=== PATIENT | female | born 1970 | race Caucasian/White ===

== ENCOUNTER → 2019-12-23 10:03 | Outpatient (CLI) | payer BC, SELFPAY ==
[2019-12-23 11:29] LABS: EXAGEN MAILED SPECIMEN
[2019-12-23 12:33] LABS: Erythrocyte Sedimentation Rate 21 mm/hr (0-30)
[2019-12-23 12:35] LABS: ALB/GLOB Ratio 0.7 RATIO (0.9-2.4); AST(SGOT) 42 U/L (15-37); Alanine Aminotransfer ALT/SGPT 44 U/L (13-56); Albumin, Serum 3.1 g/dL (3.2-5.0); Alkaline Phosphatase 63 U/L (45-117); Anion Gap 5 (5-15); BUN 15 mg/dL (7-18); BUN/Creat Ratio 19.8 RATIO (10-20); CRP 8.75 mg/L (0.0-3.0); Calcium,Total 8.2 mg/dL (8.5-10.1); Chloride 102 mmol/L (98-107); Creatinine, Serum 0.76 mg/dL (0.55-1.02); EST Glomerular Filtration Rate 86 mL/min (>60); Est Glom Filt Rate - Afr Amer 104 mL/min (>60); Globulin 4.3 g/dL (2.2-4.2); Glucose 79 mg/dL (74-106); Potassium 3.9 mmol/L (3.5-5.1); Protein, Total 7.4 g/dL (6.4-8.2); Sodium Level 136 mmol/L (136-145)
[2019-12-23 12:36] LABS: Absolute Lymphocyte Count 0.51 X10^3/uL (0.83-4.51); Absolute Neutrophil Count 2.5 X10^3/uL (2.0-7.7); Basophil# 0.02 X10^3/uL; Basophil% 0.6 % (0-1); Eosinophil# 0.01 X10^3/uL; Eosinophils% 0.3 % (0-5); Hematocrit 35.3 % (37-47); Hemoglobin 11.6 g/dL (12.0-15.0); Lymphocyte # 0.51 X10^3/ul (4.0); Lymphocyte % 15.9 % (19-41); Mean Corp Hgb Conc 32.9 g/dL (32-36); Mean Corpuscular Hgb 31.5 pg (27.0-32.0); Mean Corpuscular Volume 95.9 fL (81-99); Mean Platelet Vol. 10.7 fl (6.2-12.0); Monocyte% 6.2 % (0-10); NRBC Flagged by Analyzer 0 % (0-5); Neutrophil # 2.46 X10^3/uL (2.7-7.7); Neutrophil % 76.7 % (47-70); POSITIVE DIFFERENTIAL YES; Platelet Count 141 K/mm3 (150-450); RBC Distribution Width CV 13.1 % (11.6-14.6); RBC Distribution Width SD 45.7 fl (35.1-43.9); Red Blood Count 3.68 M/mm3 (4.2-5.4); White Blood Count 3.2 K/mm3 (4.4-11.0)
[2019-12-23 12:48] LABS: Differential Indicated SCAN CRITERIA MET
[2019-12-23 13:21] LABS: Hepatitis B Surface Antibody Reactive; Hepatitis B Surface Antigen Non-Reactive (Nonreactive); Hepatitis C Antibody Non-Reactive (Nonreactive)
[2019-12-25 14:56] LABS: Hepatitis B Core AB IgM Negative (Negative)
[2019-12-26 13:41] LABS: Pathologist Review Reviewed
== END ==
LOC: LAB 10:19 → MTLAB 10:23
PROVIDERS: PCP Family Medicine; Referring Provider Family Medicine; Visit Provider Family Medicine
DX: M06.4 Inflammatory polyarthropathy (principal); R76.8 Other specified abnormal immunological findings in serum; G56.03 Carpal tunnel syndrome, bilateral upper limbs
CPT/HCPCS: 36415; 80053; 85025; 85652; 86140; 86705; 86706; 86803; 87340

== ENCOUNTER → 2020-01-06 15:01 | Outpatient (CLI) | payer BC, SELFPAY ==
[2020-01-06 18:16] LABS: Protein, Urine (Random) 81.1 mg/dL (<11.9); Protein:Creat Ratio 289 mg/g CRE (0-200)
[2020-01-06 18:36] LABS: Color, Urine Yellow (Yellow); Glucose, Dipstick Normal (Normal); Ketone-Dipstick 5 mg/dl (Negative); Leukocyte Esterase-Dipstick 25 /ul (Negative); Nitrite-Dipstick Negative (Negative); Occult Blood-Urine 150 /ul (Negative); Protein-Dipstick 30 mg/dl (Negative); Urine Bilirubin Dipstick Negative (Negative); Urine Clarity Sl. Cloudy (Clear); Urine Urobilinogen 1 mg/dl (Normal)
== END ==
PROVIDERS: PCP Family Medicine; Referring Provider Internal Medicine Rheumatology; Visit Provider Internal Medicine Rheumatology
DX: M32.9 Systemic lupus erythematosus, unspecified (principal); M06.4 Inflammatory polyarthropathy; Z79.899 Other long term (current) drug therapy; R76.8 Other specified abnormal immunological findings in serum; G56.03 Carpal tunnel syndrome, bilateral upper limbs
CPT/HCPCS: 36415; 81002; 82570; 84156

== ENCOUNTER → 2020-01-24 09:42 | Outpatient (CLI) | payer BC, SELFPAY ==
[2020-01-24 11:57] LABS: Absolute Lymphocyte Count 0.48 X10^3/uL (0.83-4.51); Absolute Neutrophil Count 3.9 X10^3/uL (2.0-7.7); Basophil# 0.01 X10^3/uL; Basophil% 0.2 % (0-1); Eosinophil# 0.03 X10^3/uL; Eosinophils% 0.7 % (0-5); Hematocrit 34.2 % (37-47); Hemoglobin 10.9 g/dL (12.0-15.0); Lymphocyte # 0.48 X10^3/ul (4.0); Lymphocyte % 10.5 % (19-41); Mean Corp Hgb Conc 31.9 g/dL (32-36); Mean Corpuscular Hgb 31.8 pg (27.0-32.0); Mean Corpuscular Volume 99.7 fL (81-99); Mean Platelet Vol. 9.8 fl (6.2-12.0); Monocyte# 0.15 X10^3/uL; Monocyte% 3.3 % (0-10); NRBC Flagged by Analyzer 0 % (0-5); Neutrophil # 3.88 X10^3/uL (2.7-7.7); Neutrophil % 84.6 % (47-70); POSITIVE DIFFERENTIAL YES; Platelet Count 211 K/mm3 (150-450); RBC Distribution Width CV 14.6 % (11.6-14.6); RBC Distribution Width SD 52.6 fl (35.1-43.9); Red Blood Count 3.43 M/mm3 (4.2-5.4); White Blood Count 4.6 K/mm3 (4.4-11.0)
[2020-01-24 11:59] LABS: Differential Indicated SCAN CRITERIA MET
[2020-01-24 12:24] LABS: ALB/GLOB Ratio 0.7 RATIO (0.9-2.4); AST(SGOT) 24 U/L (15-37); Alanine Aminotransfer ALT/SGPT 31 U/L (13-56); Albumin, Serum 2.7 g/dL (3.2-5.0); Alkaline Phosphatase 46 U/L (45-117); Anion Gap 6 (5-15); BUN 20 mg/dL (7-18); BUN/Creat Ratio 31.5 RATIO (10-20); Calcium,Total 8.4 mg/dL (8.5-10.1); Chloride 106 mmol/L (98-107); Creatinine, Serum 0.63 mg/dL (0.55-1.02); EST Glomerular Filtration Rate 105 mL/min (>60); Est Glom Filt Rate - Afr Amer 127 mL/min (>60); Globulin 3.7 g/dL (2.2-4.2); Glucose 84 mg/dL (74-106); Potassium 3.6 mmol/L (3.5-5.1); Protein, Total 6.4 g/dL (6.4-8.2); Sodium Level 139 mmol/L (136-145)
== END ==
PROVIDERS: PCP Family Medicine; Referring Provider Internal Medicine Rheumatology; Visit Provider Internal Medicine Rheumatology
DX: M32.9 Systemic lupus erythematosus, unspecified (principal); M06.4 Inflammatory polyarthropathy; Z79.899 Other long term (current) drug therapy; R76.8 Other specified abnormal immunological findings in serum; G56.03 Carpal tunnel syndrome, bilateral upper limbs
CPT/HCPCS: 36415; 80053; 85025

== ENCOUNTER → 2020-03-28 11:01 | Outpatient (CLI) | payer BC, SELFPAY ==
[2020-03-28 12:46] LABS: Absolute Lymphocyte Count 0.31 X10^3/uL (0.83-4.51); Absolute Neutrophil Count 3.6 X10^3/uL (2.0-7.7); Basophil# 0.02 X10^3/uL; Basophil% 0.5 % (0-1); Eosinophil# 0.06 X10^3/uL; Eosinophils% 1.4 % (0-5); Hemoglobin 11.7 g/dL (12.0-15.0); Lymphocyte # 0.31 X10^3/ul (4.0); Lymphocyte % 7.3 % (19-41); Mean Corp Hgb Conc 32.5 g/dL (32-36); Mean Corpuscular Hgb 31.8 pg (27.0-32.0); Mean Corpuscular Volume 97.8 fL (81-99); Mean Platelet Vol. 9.4 fl (6.2-12.0); Monocyte# 0.28 X10^3/uL; Monocyte% 6.6 % (0-10); NRBC Flagged by Analyzer 0 % (0-5); Neutrophil # 3.55 X10^3/uL (2.7-7.7); Neutrophil % 83.3 % (47-70); POSITIVE DIFFERENTIAL YES; Platelet Count 303 K/mm3 (150-450); RBC Distribution Width CV 12.9 % (11.6-14.6); RBC Distribution Width SD 46.5 fl (35.1-43.9); Red Blood Count 3.68 M/mm3 (4.2-5.4); White Blood Count 4.3 K/mm3 (4.4-11.0)
[2020-03-28 12:55] LABS: Color, Urine Yellow (Yellow); Glucose, Dipstick Normal (Normal); Ketone-Dipstick Negative (Negative); Leukocyte Esterase-Dipstick 25 /ul (Negative); Nitrite-Dipstick Negative (Negative); Occult Blood-Urine 150 /ul (Negative); Protein-Dipstick 30 mg/dl (Negative); Specific Gravity, Urine 1.015 (1.002-1.030); Urine Bilirubin Dipstick Negative (Negative); Urine Clarity Clear (Clear); Urine Urobilinogen Normal (Normal)
[2020-03-28 13:01] LABS: Differential Indicated SCAN CRITERIA MET
[2020-03-28 13:07] LABS: Protein:Creat Ratio 754 mg/g CRE (0-200)
[2020-03-28 13:31] LABS: ALB/GLOB Ratio 0.7 RATIO (0.9-2.4); AST(SGOT) 19 U/L (15-37); Alanine Aminotransfer ALT/SGPT 17 U/L (13-56); Albumin, Serum 2.7 g/dL (3.2-5.0); Alkaline Phosphatase 57 U/L (45-117); Anion Gap 9 (5-15); BUN 15 mg/dL (7-18); BUN/Creat Ratio 19.4 RATIO (10-20); Calcium,Total 8.7 mg/dL (8.5-10.1); Chloride 98 mmol/L (98-107); Creatinine, Serum 0.77 mg/dL (0.55-1.02); EST Glomerular Filtration Rate 84 mL/min (>60); Est Glom Filt Rate - Afr Amer 101 mL/min (>60); Glucose 78 mg/dL (74-106); Potassium 3.6 mmol/L (3.5-5.1); Protein, Total 6.7 g/dL (6.4-8.2); Sodium Level 133 mmol/L (136-145)
[2020-03-28 14:07] LABS: Platelet Estimate ADEQUATE (ADEQ); Red Cell Morphology NORM C+C NORMAL (NORM C&C)
[2020-03-29 07:46] LABS: Complement C3 93 mg/dL (82-167)
[2020-03-29 10:26] LABS: Pathologist Review Reviewed
[2020-03-29 13:28] LABS: Anti-dsDNA Ab >300 IU/mL (0-9)
== END ==
PROVIDERS: PCP Family Medicine; Referring Provider Internal Medicine Rheumatology; Visit Provider Internal Medicine Rheumatology
DX: M32.9 Systemic lupus erythematosus, unspecified (principal); M06.4 Inflammatory polyarthropathy; Z79.899 Other long term (current) drug therapy; R76.8 Other specified abnormal immunological findings in serum; G56.03 Carpal tunnel syndrome, bilateral upper limbs
CPT/HCPCS: 36415; 80053; 81002; 82570; 84156; 85025; 86160; 86225

== ENCOUNTER → 2020-04-25 11:58 | Outpatient (CLI) | payer BC, SELFPAY ==
[2020-04-25 15:16] LABS: Absolute Lymphocyte Count 0.32 X10^3/uL (0.83-4.51); Basophil# 0.02 X10^3/uL; Basophil% 0.4 % (0-1); Hematocrit 37.3 % (37-47); Hemoglobin 11.7 g/dL (12.0-15.0); Lymphocyte # 0.32 X10^3/ul (4.0); Lymphocyte % 5.7 % (19-41); Mean Corp Hgb Conc 31.4 g/dL (32-36); Mean Corpuscular Hgb 30.1 pg (27.0-32.0); Mean Corpuscular Volume 95.9 fL (81-99); Mean Platelet Vol. 9.1 fl (6.2-12.0); Monocyte# 0.21 X10^3/uL; Monocyte% 3.8 % (0-10); NRBC Flagged by Analyzer 0 % (0-5); Neutrophil # 4.97 X10^3/uL (2.7-7.7); Neutrophil % 88.7 % (47-70); POSITIVE DIFFERENTIAL YES; Platelet Count 412 K/mm3 (150-450); RBC Distribution Width CV 12.7 % (11.6-14.6); RBC Distribution Width SD 44.5 fl (35.1-43.9); Red Blood Count 3.89 M/mm3 (4.2-5.4); White Blood Count 5.6 K/mm3 (4.4-11.0)
[2020-04-25 15:19] LABS: Differential Indicated SCAN CRITERIA MET
[2020-04-25 15:23] LABS: Color, Urine Yellow (Yellow); Glucose, Dipstick Normal (Normal); Ketone-Dipstick Negative (Negative); Leukocyte Esterase-Dipstick 25 /ul (Negative); Nitrite-Dipstick Negative (Negative); Occult Blood-Urine Negative /ul (Negative); Protein-Dipstick Negative (Negative); Urine Bilirubin Dipstick Negative (Negative); Urine Clarity Clear (Clear); Urine Urobilinogen Normal (Normal)
[2020-04-25 15:25] LABS: Protein, Urine (Random) 12.5 mg/dL (<11.9); Protein:Creat Ratio 546 mg/g CRE (0-200)
[2020-04-25 15:34] LABS: ALB/GLOB Ratio 0.8 RATIO (0.9-2.4); AST(SGOT) 19 U/L (15-37); Alanine Aminotransfer ALT/SGPT 16 U/L (13-56); Albumin, Serum 3.1 g/dL (3.2-5.0); Alkaline Phosphatase 72 U/L (45-117); Anion Gap 3 (5-15); BUN 16 mg/dL (7-18); BUN/Creat Ratio 25.9 RATIO (10-20); Chloride 104 mmol/L (98-107); Creatinine, Serum 0.62 mg/dL (0.55-1.02); EST Glomerular Filtration Rate 108 mL/min (>60); Est Glom Filt Rate - Afr Amer 131 mL/min (>60); Glucose 103 mg/dL (74-106); Potassium 4.7 mmol/L (3.5-5.1); Protein, Total 7.1 g/dL (6.4-8.2); Sodium Level 136 mmol/L (136-145)
[2020-04-25 15:41] LABS: Differential Comment SCANNED
[2020-04-27 20:31] LABS: Complement C3 90 mg/dL (82-167)
[2020-04-27 20:35] LABS: Anti-dsDNA Ab 263 IU/mL (0-9)
== END ==
PROVIDERS: PCP Family Medicine; Referring Provider Internal Medicine Rheumatology; Visit Provider Internal Medicine Rheumatology
DX: M32.9 Systemic lupus erythematosus, unspecified (principal); M06.4 Inflammatory polyarthropathy; Z79.899 Other long term (current) drug therapy; R76.8 Other specified abnormal immunological findings in serum; G56.03 Carpal tunnel syndrome, bilateral upper limbs
CPT/HCPCS: 36415; 80053; 81002; 82570; 84156; 85025; 86160; 86225

== ENCOUNTER → 2020-05-03 15:19 | Outpatient (CLI) | payer BC, SELFPAY ==
[2020-05-03 17:39] LABS: Hematocrit 36.3 % (37-47); Hemoglobin 11.4 g/dL (12.0-15.0); Mean Corp Hgb Conc 31.4 g/dL (32-36); Mean Corpuscular Hgb 30.2 pg (27.0-32.0); Mean Platelet Vol. 9.4 fl (6.2-12.0); Platelet Count 331 K/mm3 (150-450); RBC Distribution Width CV 13.1 % (11.6-14.6); RBC Distribution Width SD 46.1 fl (35.1-43.9); Red Blood Count 3.78 M/mm3 (4.2-5.4); White Blood Count 4.5 K/mm3 (4.4-11.0)
[2020-05-03 17:46] LABS: Partial Thromboplast Time 26.3 Seconds (24.1-36.2)
== END ==
PROVIDERS: PCP Family Medicine; Referring Provider Internal Medicine Nephrology; Visit Provider Internal Medicine Nephrology
DX: Z03.818 Encounter for observation for suspected exposure to other biological agents ruled out (principal); M32.9 Systemic lupus erythematosus, unspecified
CPT/HCPCS: 36415; 85027; 85610; 85730

== ENCOUNTER → 2020-05-11 07:46 | Outpatient (CLI) | payer BC, SELFPAY ==
[2020-05-11] VITALS (9 sets, daily range): BP systolic 95–120; BP diastolic 52–74; PULSE 64–80; RESP 11–22; TEMP 36.7; O2SAT 97–100; BMI 23.2
--- NOTE | 2020-05-11 | KID_PTH ---
PATIENT: YENNI HUERTA LOC: CT U#:[id number] AGE/SX: 55/F ROOM: RE05/11/[address]: Dr. Ramon Dumont MD : 1970 BED: DIS: SPEC #: [id number] RECD: 05/11/20 09:08 STATUS: MAIKEL ELVIN #: [id number] MAGGI: 05/11/20 00:[address]: Ramon Dumont DEPT: SURGICAL PATHOLOGY RECD BY: Imani Rosas ENTERED: 05/11/20 10:05 SP TYPE: KIDNEY OTHR DR: Dr. Wiliam Carter MD Tissues: Kidney, NOS Procedures: Electron Microscopy (ACH) Fluorescent Antibody (ACH) Sp St Grp II Kidney (ACH) Kidney Biopsy (ACH) Fluorescent antibody (ACH) add'l HEADER OPERATION: CT-guided left kidney biopsy PRE-OP DIAGNOSIS: Lupus TISSUE SUBMITTED: Kidney 18-gauge cores x4 MICROSCOPIC DIAGNOSIS Left kidney, CT-guided biopsies: Renal tissue showing focal glomerular segmental proliferative and fibrinoid changes, full house immunofluorescence and sparse subendothelial deposits; consistent with lupus nephritis (Class III-A). See comment. COMMENT Correlate clinically with history and onset of symptoms. Case reviewed with Dr. Mcdonald who concurs. The immunofluorescence profile of full house positivity with a positive C1q is supportive of lupus pattern etiology. With focal acute glomerular lesions/changes, the biopsy is best classified as a Class III-A lupus nephritis. There is no evidence of significant chronic changes or interstitial fibrosis. CLINICAL INFORMATION: CT-guided left kidney biopsy. Four 18-gauge cores. 50-year-old female kidney involvement of lupus. See rheumatology. Involves includes joints mostly. No rash. Borderline cytopenias. Previous microscopic hematuria. Elevated double-stranded DNA. Positive JANICE. MICROSCOPIC DESCRIPTION Light microscopy examined with H & E, PAS, [place] silver, [place] red and trichrome stains yields 23 glomeruli, of which 5 show focal segmental lesions/fibrinoid change. There is focal segmental mesangial expansion and rare capillary loop endoproliferative change. There is no evidence of definitive crescent formation. There is no evidence of global glomerulosclerosis. Few glomeruli show mild hilar pole thickening. Examination of the tubules shows diffuse acute injury changes. There is no evidence of significant tubule atrophy. There is no evidence of significant interstitial fibrosis on trichrome stain. Trichrome supports/highlights segmental glomerular changes. The interstitium shows sparse evidence of any inflammation. Evaluation of the vessels shows minimal to mild intimal layer thickening. There is no evidence of vasculitis. [place] red stain shows no evidence of amyloid deposition or accumulation. Medullary renal tissue is present and shows rare lipofuscin pigmentation. Special stain positive controls are reviewed and deemed adequate. IMMUNOFLUORESCENCE: Tissue frozen and submitted for immunofluorescence evaluation yields 4 glomeruli, 1 of which shows a focal segmental sclerotic change. There is background glomerular and cortex signal with IgG and albumin. The glomeruli are 3+ positive in a confluent pattern with IgG and IgA. IgM shows a similar 2+ confluent glomerular positivity. C3 and C1q show a 1-2+ glomerular positivity. Fibrin shows a rare focal signal in 1 glomerulus. [place] and lambda show an approximately equal weak background. Positive and negative immunofluorescence controls are reviewed and deemed adequate. ELECTRON MICROSCOPY: Toluidine blue semithin sections yield 3 glomeruli. Ultrastructure examination of the glomeruli yields sparse subendothelial deposits. There is mild mesangial matrix expansion. There is basement membrane convolution/folding. Examination of the podocytes shows rare effacement changes and microvillous transformation. The tubules show mild degenerative changes. GROSS DESCRIPTION The specimen is sent entirely to [facility] for diagnosis. Received in polytransport medium in a container labeled with the patient's name and medical record number and designation left kidney are four cores of conner renal tissue measuring 1.8 cm, 1.6 cm, 1.1 cm and 1 cm in length, each approximately 0.1 cm in width. Glomeruli are seen under the dissecting microscope. The specimen is divided for electron microscopy, immunofluorescence and light microscopy.
--- NOTE | 2020-05-11 07:48 | CT_ITS ---
PROCEDURE: CT GUIDED PERCUTANEOUS KIDNEY BIOPSY. DATE: 05/11/2020 INDICATION: Female, 50 years old. Hematuria. Lupus. PHYSICIAN: Pierre Dillon M.D. MEDICATIONS: 2 mg of the VERSED and 50 mcg of FENTANYL intravenously. Conscious sedation was started at 8:42 AM and terminated at 8:57 AM. The patient was independently monitored by the nurse. ACCESS SITE: Lower pole of the left kidney. NEEDLE: 18-gauge core biopsy needle. SPECIMEN: 4 18-gauge cores EBL: None. COMPLICATIONS: None immediate. RADIATION DOSAGE (If Supplied By Facility): CTDIvol = ( 13.6 ) mGy, DLP = ( 204.2 ) mGycm. Individualized dose optimization techniques were utilized. The risks, benefits, and alternatives to the procedure and sedation were explained to the patient. The specific risk of hemorrhage requiring further treatment or intervention was detailed and accepted. Written informed consent was obtained. The patient was placed on the CT table in the prone position. Multiple axial images were obtained from the lung base through the caudal extent of the kidneys. An appropriate entry site was identified and a sim made on the skin. The skin overlying the [ left] posterior flank was prepped and draped in sterile fashion. 1% lidocaine was administered subcutaneously for local anesthesia. Initially, a 22 gauge needle was advanced and CT images confirmed good needle position. The 22 gauge needle was then exchanged for an 17 gauge introducer needle which was advanced. Repeat CT images confirmed good needle trajectory and tip position. The introducer needle was then advanced into the periphery of the inferior renal pole, and CT images were again obtained to confirm exact tip location. The inner stylet of the introducer needle was then removed and an 18 gauge coaxial needle was advanced thru the introducer needle and biopsy performed. A total of [4 ] passes were performed and the specimen collected was sent to Pathology for further evaluation. The needle was withdrawn. Hemostasis was achieved with manual compression and a sterile dressing was applied. Repeat CT images of the biopsy area was performed which demonstrated no gross bleeding or hematoma. The patient tolerated the procedure well without immediate complications. The patient was transported to the [floor/recovery area] in stable condition. CT/Biopsy/Inj or Needle Placement IMPRESSION: Successful CT guided percutaneous kidney biopsy. Conscious sedation protocol was followed. Electronically Signed: Pierre Dillon MD at 9:36 EST , Service support ,
[2020-05-11] MEDS: Midazolam 2 MG/2 ML Syringe IV (08:41)
[2020-05-11] MEDS: fentaNYL 100 MCG/2 ML Ampul IV (08:42)
== END ==
PROVIDERS: PCP Family Medicine; Referring Provider Internal Medicine Nephrology; Visit Provider Internal Medicine Nephrology
DX: R31.9 Hematuria, unspecified (principal); M32.9 Systemic lupus erythematosus, unspecified
CPT/HCPCS: 50200; 77012; 88305; 88313; 88346; 88348; 88350; 99155; 99156; J7040; A4216

== ENCOUNTER → 2020-06-20 12:10 | Outpatient (CLI) | payer BC, SELFPAY ==
[2020-05-11 08:18] VITALS: BMI 23.2
[2020-06-20 12:15] LABS: Mucous, Urine 0 SEEN /hpf (<or=2+); Red Blood Cells-Urine 0 SEEN /hpf (0-5)
[2020-06-20 15:15] LABS: Color, Urine Yellow (Yellow); Glucose, Dipstick Normal (Normal); Ketone-Dipstick Negative (Negative); Leukocyte Esterase-Dipstick 25 /ul (Negative); Nitrite-Dipstick Negative (Negative); Occult Blood-Urine 10 /ul (Negative); Protein-Dipstick 15 mg/dl (Negative); Specific Gravity, Urine 1.015 (1.002-1.030); Urine Bilirubin Dipstick Negative (Negative); Urine Clarity Clear (Clear); Urine Urobilinogen Normal (Normal)
[2020-06-20 15:16] LABS: Hematocrit 40.6 % (37-47); Mean Corpuscular Hgb 31.2 pg (27.0-32.0); Mean Corpuscular Volume 97.4 fL (81-99); Mean Platelet Vol. 10.1 fl (6.2-12.0); Platelet Count 271 K/mm3 (150-450); RBC Distribution Width CV 16.1 % (11.6-14.6); RBC Distribution Width SD 57.9 fl (35.1-43.9); Red Blood Count 4.17 M/mm3 (4.2-5.4); White Blood Count 7.8 K/mm3 (4.4-11.0)
[2020-06-20 15:26] LABS: Bacteria RARE /hpf (None Seen); Squamous Epithelial Cells - UA 0-5 SEEN /hpf (5-10)
[2020-06-20 15:27] LABS: White Blood Cells 0-5 SEEN /hpf (0-5)
[2020-06-20 15:44] LABS: Albumin, Serum 3.2 g/dL (3.2-5.0); BUN 22 mg/dL (7-18); BUN/Creat Ratio 29.1 RATIO (10-20); Calcium,Total 9.2 mg/dL (8.5-10.1); Chloride 103 mmol/L (98-107); Creatinine, Serum 0.76 mg/dL (0.55-1.02); EST Glomerular Filtration Rate 86 mL/min (>60); Est Glom Filt Rate - Afr Amer 104 mL/min (>60); Glucose 126 mg/dL (74-106); Phosphorus 2.9 mg/dL (2.5-4.9); Potassium 3.9 mmol/L (3.5-5.1); Sodium Level 137 mmol/L (136-145)
[2020-06-20 15:45] LABS: Protein, Urine (Random) 35.1 mg/dL (<11.9); Protein:Creat Ratio 550 mg/g CRE (0-200)
[2020-06-22 13:06] LABS: Complement C3 79 mg/dL (82-167)
[2020-06-22 13:41] LABS: ANTINUCLEAR ANTIBODIES DIRECT Positive (Negative); Anti-dsDNA Ab 64 IU/mL (0-9)
== END ==
PROVIDERS: PCP Family Medicine; Referring Provider Internal Medicine Nephrology; Visit Provider Internal Medicine Nephrology
DX: M32.9 Systemic lupus erythematosus, unspecified (principal)
CPT/HCPCS: 36415; 80069; 81001; 82043; 82570; 84156; 85027; 86038; 86160; 86225

== ENCOUNTER → 2020-07-06 08:20 | Outpatient (CLI) | payer BC, SELFPAY ==
[2020-05-11 08:18] VITALS: BMI 23.2
--- NOTE | 2020-07-06 10:50 | RAD_ITS ---
INDICATION: systemic lupus EXAMINATION/TECHNIQUE: X-RAY - XR Chest 2 Views COMPARISON: None. FINDINGS: Bibasilar atelectasis/scarring. Linear atelectasis or scarring in the left lower lung. The cardiomediastinal silhouette is unremarkable. No pleural effusion or pneumothorax. No acute osseous abnormalities. RAD/Chest PA and Lateral IMPRESSION: Bibasilar atelectasis/scarring. Linear atelectasis or scarring in the left lower lung. Otherwise, no acute abnormalities. Electronically Signed: Jayce Berg MD at 20:56 EDT Tel , Service support ,
[2020-07-06 12:09] LABS: Color, Urine Yellow (Yellow); Glucose, Dipstick Normal (Normal); Ketone-Dipstick Negative (Negative); Leukocyte Esterase-Dipstick 100 /ul (Negative); Nitrite-Dipstick Negative (Negative); Occult Blood-Urine 25 /ul (Negative); Protein-Dipstick 15 mg/dl (Negative); Urine Bilirubin Dipstick Negative (Negative); Urine Clarity Sl. Cloudy (Clear); Urine Urobilinogen Normal (Normal); Urine pH 6.5 (5.0 - 8.0)
[2020-07-06 12:19] LABS: Protein, Urine (Random) 29.4 mg/dL (<11.9); Protein:Creat Ratio 592 mg/g CRE (0-200)
[2020-07-06 12:44] LABS: ALB/GLOB Ratio 0.8 RATIO (0.9-2.4); AST(SGOT) 18 U/L (15-37); Alanine Aminotransfer ALT/SGPT 21 U/L (13-56); Albumin, Serum 3.1 g/dL (3.2-5.0); Alkaline Phosphatase 84 U/L (45-117); Anion Gap 5 (5-15); BUN 19 mg/dL (7-18); BUN/Creat Ratio 26.6 RATIO (10-20); Calcium,Total 8.5 mg/dL (8.5-10.1); Chloride 108 mmol/L (98-107); Creatinine, Serum 0.72 mg/dL (0.55-1.02); EST Glomerular Filtration Rate 91 mL/min (>60); Est Glom Filt Rate - Afr Amer 111 mL/min (>60); Globulin 3.8 g/dL (2.2-4.2); Glucose 87 mg/dL (74-106); Potassium 3.3 mmol/L (3.5-5.1); Protein, Total 6.9 g/dL (6.4-8.2); Sodium Level 138 mmol/L (136-145)
[2020-07-09 16:24] LABS: Anti-dsDNA Ab 75 IU/mL (0-9)
== END ==
PROVIDERS: PCP Family Medicine; Referring Provider Internal Medicine Rheumatology; Visit Provider Internal Medicine Rheumatology
DX: M32.9 Systemic lupus erythematosus, unspecified (principal); M06.4 Inflammatory polyarthropathy; Z79.899 Other long term (current) drug therapy; R76.8 Other specified abnormal immunological findings in serum; G56.03 Carpal tunnel syndrome, bilateral upper limbs
CPT/HCPCS: 36415; 71046; 80053; 81002; 82570; 84156; 86160; 86225; 86480

== ENCOUNTER → 2020-07-09 09:28 | Outpatient (CLI) | payer BC, SELFPAY ==
[2020-05-11 08:18] VITALS: BMI 23.2
[2020-07-09 12:22] LABS: Absolute Lymphocyte Count 1.51 X10^3/uL (0.83-4.51); Basophil# 0.04 X10^3/uL; Basophil% 0.5 % (0-1); Eosinophil# 0.05 X10^3/uL; Eosinophils% 0.6 % (0-5); Hematocrit 41.1 % (37-47); Hemoglobin 12.7 g/dL (12.0-15.0); Lymphocyte # 1.51 X10^3/ul (4.0); Lymphocyte % 18.5 % (19-41); Mean Corp Hgb Conc 30.9 g/dL (32-36); Mean Corpuscular Hgb 31.1 pg (27.0-32.0); Mean Corpuscular Volume 100.5 fL (81-99); Mean Platelet Vol. 9.9 fl (6.2-12.0); Monocyte# 0.53 X10^3/uL; Monocyte% 6.5 % (0-10); NRBC Flagged by Analyzer 0 % (0-5); Neutrophil # 5.96 X10^3/uL (2.7-7.7); Neutrophil % 72.9 % (47-70); Platelet Count 294 K/mm3 (150-450); RBC Distribution Width CV 16.7 % (11.6-14.6); RBC Distribution Width SD 61.9 fl (35.1-43.9); Red Blood Count 4.09 M/mm3 (4.2-5.4); White Blood Count 8.2 K/mm3 (4.4-11.0)
== END ==
PROVIDERS: PCP Family Medicine; Referring Provider Internal Medicine Rheumatology; Visit Provider Internal Medicine Rheumatology
DX: M32.9 Systemic lupus erythematosus, unspecified (principal); M06.4 Inflammatory polyarthropathy; Z79.899 Other long term (current) drug therapy; R76.8 Other specified abnormal immunological findings in serum; G56.03 Carpal tunnel syndrome, bilateral upper limbs
CPT/HCPCS: 85025

== ENCOUNTER → 2020-07-23 08:16 | Outpatient (CLI) | payer BC, SELFPAY ==
[2020-05-11 08:18] VITALS: BMI 23.2
[2020-07-28 03:06] LABS: QNTFERON TB Mitogen Value > 10.00 IU/mL (.); QNTFERON TB Nil Value 0 IU/mL (.); QNTFERON TB1+ Ag Value 0 IU/mL (.); QNTFERON TB2+ Ag Value 0 IU/mL (.)
[2020-07-28 07:49] LABS: QNTIFERON TB Positive Criteria Negative (Negative)
== END ==
PROVIDERS: PCP Family Medicine; Referring Provider Internal Medicine Rheumatology; Visit Provider Internal Medicine Rheumatology
DX: M32.9 Systemic lupus erythematosus, unspecified (principal); M06.4 Inflammatory polyarthropathy; Z79.899 Other long term (current) drug therapy; R76.8 Other specified abnormal immunological findings in serum; G56.03 Carpal tunnel syndrome, bilateral upper limbs
CPT/HCPCS: 86480

== ENCOUNTER → 2020-09-04 09:59 | Outpatient (CLI) | payer BC, SELFPAY ==
[2020-05-11 08:18] VITALS: BMI 23.2
[2020-09-04 12:22] LABS: Hematocrit 40.3 % (37-47); Hemoglobin 12.4 g/dL (12.0-15.0); Mean Corp Hgb Conc 30.8 g/dL (32-36); Mean Corpuscular Hgb 30.8 pg (27.0-32.0); Mean Corpuscular Volume 100.2 fL (81-99); Mean Platelet Vol. 9.9 fl (6.2-12.0); Platelet Count 240 K/mm3 (150-450); RBC Distribution Width CV 13.3 % (11.6-14.6); Red Blood Count 4.02 M/mm3 (4.2-5.4)
[2020-09-04 12:37] LABS: Anion Gap 3 (5-15); BUN 14 mg/dL (7-18); BUN/Creat Ratio 18.8 RATIO (10-20); Chloride 109 mmol/L (98-107); Creatinine, Serum 0.75 mg/dL (0.55-1.02); EST Glomerular Filtration Rate 87 mL/min (>60); Est Glom Filt Rate - Afr Amer 105 mL/min (>60); Glucose 78 mg/dL (74-106); Potassium 3.6 mmol/L (3.5-5.1); Sodium Level 141 mmol/L (136-145)
[2020-09-04 13:04] LABS: Protein, Urine (Random) 166.8 mg/dL (<11.9); Protein:Creat Ratio 515 mg/g CRE (0-200)
[2020-09-05 10:13] LABS: Complement C3 158 mg/dL (82-167)
[2020-09-05 20:01] LABS: Anti-dsDNA Ab 85 IU/mL (0-9)
== END ==
PROVIDERS: PCP Family Medicine; Referring Provider Internal Medicine Nephrology; Visit Provider Internal Medicine Nephrology
DX: M32.9 Systemic lupus erythematosus, unspecified (principal)
CPT/HCPCS: 36415; 80048; 82570; 84156; 85027; 86160; 86225

== ENCOUNTER → 2020-09-25 10:51 | Outpatient (CLI) | payer BC, SELFPAY ==
[2020-05-11 08:18] VITALS: BMI 23.2
[2020-09-25 12:41] LABS: Absolute Lymphocyte Count 0.34 X10^3/uL (0.83-4.51); Absolute Neutrophil Count 3.6 X10^3/uL (2.0-7.7); Basophil# 0.01 X10^3/uL; Basophil% 0.2 % (0-1); Eosinophil# 0.03 X10^3/uL; Eosinophils% 0.7 % (0-5); Hematocrit 36.7 % (37-47); Hemoglobin 11.7 g/dL (12.0-15.0); Lymphocyte # 0.34 X10^3/ul (0.83-4.51); Lymphocyte % 7.7 % (19-41); Mean Corp Hgb Conc 31.9 g/dL (32-36); Mean Corpuscular Hgb 31.1 pg (27.0-32.0); Mean Corpuscular Volume 97.6 fL (81-99); Monocyte# 0.41 X10^3/uL; Monocyte% 9.2 % (0-10); NRBC Flagged by Analyzer 0 % (0-5); Neutrophil # 3.64 X10^3/uL (2.7-7.7); POSITIVE DIFFERENTIAL YES; Platelet Count 202 K/mm3 (150-450); RBC Distribution Width CV 12.7 % (11.6-14.6); Red Blood Count 3.76 M/mm3 (4.2-5.4); White Blood Count 4.4 K/mm3 (4.4-11.0)
[2020-09-25 12:50] LABS: Color, Urine Yellow (Yellow); Glucose, Dipstick Normal (Normal); Ketone-Dipstick Negative (Negative); Leukocyte Esterase-Dipstick Negative /ul (Negative); Nitrite-Dipstick Negative (Negative); Occult Blood-Urine 10 /ul (Negative); Protein-Dipstick 15 mg/dl (Negative); Urine Bilirubin Dipstick Negative (Negative); Urine Clarity Sl. Cloudy (Clear); Urine Urobilinogen Normal (Normal); Urine pH 6.5 (5.0 - 8.0)
[2020-09-25 12:52] LABS: Differential Indicated SCAN CRITERIA MET
[2020-09-25 13:13] LABS: AST(SGOT) 20 U/L (15-37); Alanine Aminotransfer ALT/SGPT 17 U/L (13-56); Albumin, Serum 3.3 g/dL (3.2-5.0); Alkaline Phosphatase 65 U/L (45-117); Anion Gap 6 (5-15); BUN 10 mg/dL (7-18); BUN/Creat Ratio 15.8 RATIO (10-20); Calcium,Total 8.6 mg/dL (8.5-10.1); Chloride 100 mmol/L (98-107); Creatinine, Serum 0.63 mg/dL (0.55-1.02); EST Glomerular Filtration Rate 105 mL/min (>60); Est Glom Filt Rate - Afr Amer 127 mL/min (>60); Globulin 3.3 g/dL (2.2-4.2); Glucose 86 mg/dL (74-106); Potassium 3.7 mmol/L (3.5-5.1); Protein, Total 6.6 g/dL (6.4-8.2); Sodium Level 136 mmol/L (136-145)
[2020-09-25 13:15] LABS: Protein, Urine (Random) 13.3 mg/dL (<11.9); Protein:Creat Ratio 491 mg/g CRE (0-200)
[2020-09-25 13:23] LABS: Differential Comment SCANNED
[2020-09-26 21:12] LABS: Anti-dsDNA Ab 84 IU/mL (0-9)
[2020-09-28 03:07] LABS: QNTFERON TB Mitogen Value 3.22 IU/mL (.); QNTFERON TB Nil Value 0.09 IU/mL (.)
[2020-09-29 09:57] LABS: Complement C3 84 mg/dL (82-167); QNTIFERON TB Positive Criteria Negative (Negative)
== END ==
PROVIDERS: PCP Family Medicine; Referring Provider Internal Medicine Rheumatology; Visit Provider Internal Medicine Rheumatology
DX: M32.9 Systemic lupus erythematosus, unspecified (principal); M06.4 Inflammatory polyarthropathy; Z79.899 Other long term (current) drug therapy; R76.8 Other specified abnormal immunological findings in serum; G56.03 Carpal tunnel syndrome, bilateral upper limbs
CPT/HCPCS: 36415; 80053; 81002; 82570; 84156; 85025; 86160; 86225; 86480

== ENCOUNTER → 2020-12-04 07:51 | Outpatient (CLI) | payer BC, SELFPAY ==
[2020-12-04 10:06] LABS: Hematocrit 39.3 % (37-47); Hemoglobin 12.2 g/dL (12.0-15.0); Mean Corpuscular Hgb 30.4 pg (27.0-32.0); Mean Platelet Vol. 10.4 fl (6.2-12.0); Platelet Count 225 K/mm3 (150-450); RBC Distribution Width CV 13.5 % (11.6-14.6); RBC Distribution Width SD 48.5 fl (35.1-43.9); Red Blood Count 4.01 M/mm3 (4.2-5.4); White Blood Count 3.2 K/mm3 (4.4-11.0)
[2020-12-04 10:38] LABS: Anion Gap 6 (5-15); BUN 11 mg/dL (7-18); BUN/Creat Ratio 18.1 RATIO (10-20); Calcium,Total 8.9 mg/dL (8.5-10.1); Chloride 105 mmol/L (98-107); Creatinine, Serum 0.61 mg/dL (0.55-1.02); EST Glomerular Filtration Rate 110 mL/min (>60); Est Glom Filt Rate - Afr Amer 133 mL/min (>60); Glucose 81 mg/dL (74-106); Potassium 3.7 mmol/L (3.5-5.1); Sodium Level 138 mmol/L (136-145)
[2020-12-04 10:46] LABS: Protein, Urine (Random) 79.3 mg/dL (<11.9); Protein:Creat Ratio 420 mg/g CRE (0-200)
[2020-12-05 16:34] LABS: Anti-dsDNA Ab 127 IU/mL (0-9)
[2020-12-05 20:56] LABS: Complement C3 82 mg/dL (82-167)
== END ==
PROVIDERS: PCP Family Medicine; Referring Provider Internal Medicine Nephrology; Visit Provider Internal Medicine Nephrology
DX: M32.9 Systemic lupus erythematosus, unspecified (principal)
CPT/HCPCS: 36415; 80048; 82570; 84156; 85027; 86160; 86225

== ENCOUNTER → 2020-12-18 07:32 | Outpatient (CLI) | payer BC, SELFPAY ==
[2020-12-18 10:08] LABS: Absolute Lymphocyte Count 0.67 X10^3/uL (0.83-4.51); Absolute Neutrophil Count 2.2 X10^3/uL (2.0-7.7); Basophil# 0.01 X10^3/uL; Basophil% 0.3 % (0-1); Eosinophil# 0.05 X10^3/uL; Eosinophils% 1.5 % (0-5); Hematocrit 39.1 % (37-47); Lymphocyte # 0.67 X10^3/ul (0.83-4.51); Lymphocyte % 19.9 % (19-41); Mean Corp Hgb Conc 30.7 g/dL (32-36); Mean Corpuscular Hgb 30.5 pg (27.0-32.0); Mean Corpuscular Volume 99.2 fL (81-99); Mean Platelet Vol. 10.4 fl (6.2-12.0); Monocyte# 0.42 X10^3/uL; Monocyte% 12.5 % (0-10); NRBC Flagged by Analyzer 0 % (0-5); Neutrophil # 2.18 X10^3/uL (2.7-7.7); Neutrophil % 64.9 % (47-70); Platelet Count 203 K/mm3 (150-450); RBC Distribution Width CV 13.3 % (11.6-14.6); RBC Distribution Width SD 49.1 fl (35.1-43.9); Red Blood Count 3.94 M/mm3 (4.2-5.4); White Blood Count 3.4 K/mm3 (4.4-11.0)
[2020-12-18 10:09] LABS: Color, Urine Yellow (Yellow); Glucose, Dipstick Normal (Normal); Ketone-Dipstick Negative (Negative); Leukocyte Esterase-Dipstick Negative /ul (Negative); Nitrite-Dipstick Negative (Negative); Occult Blood-Urine Negative /ul (Negative); Protein-Dipstick 30 mg/dl (Negative); Specific Gravity, Urine 1.015 (1.002-1.030); Urine Bilirubin Dipstick Negative (Negative); Urine Clarity Clear (Clear); Urine Urobilinogen Normal (Normal)
[2020-12-18 10:27] LABS: ALB/GLOB Ratio 0.9 RATIO (0.9-2.4); AST(SGOT) 18 U/L (15-37); Alanine Aminotransfer ALT/SGPT 21 U/L (13-56); Albumin, Serum 3.3 g/dL (3.2-5.0); Alkaline Phosphatase 58 U/L (45-117); Anion Gap 5 (5-15); BUN 12 mg/dL (7-18); Calcium,Total 8.9 mg/dL (8.5-10.1); Chloride 105 mmol/L (98-107); Creatinine, Serum 0.63 mg/dL (0.55-1.02); EST Glomerular Filtration Rate 105 mL/min (>60); Est Glom Filt Rate - Afr Amer 127 mL/min (>60); Globulin 3.6 g/dL (2.2-4.2); Glucose 81 mg/dL (74-106); Potassium 3.9 mmol/L (3.5-5.1); Protein, Total 6.9 g/dL (6.4-8.2); Sodium Level 139 mmol/L (136-145)
[2020-12-18 10:37] LABS: Protein:Creat Ratio 399 mg/g CRE (0-200)
[2020-12-19 10:35] LABS: Complement C3 81 mg/dL (82-167)
[2020-12-19 14:45] LABS: Anti-dsDNA Ab 113 IU/mL (0-9)
== END ==
PROVIDERS: PCP Family Medicine; Referring Provider Internal Medicine Rheumatology; Visit Provider Internal Medicine Rheumatology
DX: M32.9 Systemic lupus erythematosus, unspecified (principal); M06.4 Inflammatory polyarthropathy; Z79.899 Other long term (current) drug therapy; R76.8 Other specified abnormal immunological findings in serum; G56.03 Carpal tunnel syndrome, bilateral upper limbs
CPT/HCPCS: 36415; 80053; 81002; 82570; 84156; 85025; 86160; 86225

== ENCOUNTER → 2021-03-05 07:39 | Outpatient (CLI) | payer BC, SELFPAY ==
[2021-03-05 07:46] LABS: Mucous, Urine 0 SEEN /hpf (<or=2+); Red Blood Cells-Urine 0 SEEN /hpf (0-5)
[2021-03-05 09:54] LABS: Color, Urine Yellow (Yellow); Glucose, Dipstick Normal (Normal); Ketone-Dipstick Negative (Negative); Leukocyte Esterase-Dipstick 25 /ul (Negative); Nitrite-Dipstick Negative (Negative); Occult Blood-Urine Negative /ul (Negative); Protein-Dipstick 30 mg/dl (Negative); Urine Bilirubin Dipstick Negative (Negative); Urine Clarity Clear (Clear); Urine Urobilinogen Normal (Normal)
[2021-03-05 10:05] LABS: Bacteria 1+ /hpf (None Seen); Protein, Urine (Random) 147.5 mg/dL (<11.9); Protein:Creat Ratio 518 mg/g CRE (0-200); Squamous Epithelial Cells - UA 5-10 SEEN /hpf (5-10); White Blood Cells 0-5 SEEN /hpf (0-5)
[2021-03-05 10:08] LABS: Anion Gap 7 (5-15); BUN 11 mg/dL (7-18); BUN/Creat Ratio 16.2 RATIO (10-20); Calcium,Total 8.9 mg/dL (8.5-10.1); Chloride 107 mmol/L (98-107); Creatinine, Serum 0.68 mg/dL (0.55-1.02); EST Glomerular Filtration Rate 97 mL/min (>60); Est Glom Filt Rate - Afr Amer 117 mL/min (>60); Glucose 85 mg/dL (74-106); Sodium Level 140 mmol/L (136-145); Vitamin D,25 Hydroxy 63.9 ng/mL
[2021-03-05 10:36] LABS: PTHIN 19.5 pg/mL (18.4-80.1)
== END ==
PROVIDERS: PCP Family Medicine; Referring Provider Nurse Practitioner Adult Health; Visit Provider Nurse Practitioner Adult Health
DX: M32.9 Systemic lupus erythematosus, unspecified (principal)
CPT/HCPCS: 36415; 80048; 81001; 82306; 82570; 83970; 84156

== ENCOUNTER → 2021-03-15 07:09 | Outpatient (CLI) | payer BC, SELFPAY ==
[2021-03-15 10:15] LABS: Absolute Lymphocyte Count 0.64 X10^3/uL (0.83-4.51); Absolute Neutrophil Count 1.8 X10^3/uL (2.0-7.7); Basophil# 0.03 X10^3/uL; Eosinophil# 0.07 X10^3/uL; Eosinophils% 2.3 % (0-5); Hematocrit 39.2 % (37-47); Hemoglobin 12.4 g/dL (12.0-15.0); Lymphocyte # 0.64 X10^3/ul (0.83-4.51); Lymphocyte % 21.5 % (19-41); Mean Corp Hgb Conc 31.6 g/dL (32-36); Mean Corpuscular Hgb 30.9 pg (27.0-32.0); Mean Corpuscular Volume 97.8 fL (81-99); Mean Platelet Vol. 10.7 fl (6.2-12.0); Monocyte# 0.47 X10^3/uL; Monocyte% 15.8 % (0-10); NRBC Flagged by Analyzer 0 % (0-5); Neutrophil # 1.76 X10^3/uL (2.7-7.7); Neutrophil % 59.1 % (47-70); Platelet Count 192 K/mm3 (150-450); RBC Distribution Width SD 45.8 fl (35.1-43.9); Red Blood Count 4.01 M/mm3 (4.2-5.4)
[2021-03-15 10:16] LABS: Glucose, Dipstick Normal (Normal); Ketone-Dipstick Negative (Negative); Leukocyte Esterase-Dipstick 100 /ul (Negative); Nitrite-Dipstick Negative (Negative); Occult Blood-Urine Negative /ul (Negative); Protein-Dipstick 30 mg/dl (Negative); Specific Gravity, Urine 1.015 (1.002-1.030); Urine Bilirubin Dipstick Negative (Negative); Urine Urobilinogen Normal (Normal)
[2021-03-15 10:18] LABS: Color, Urine Yellow (Yellow); Urine Clarity Clear (Clear)
[2021-03-15 10:28] LABS: Protein, Urine (Random) 72.6 mg/dL (<11.9); Protein:Creat Ratio 430 mg/g CRE (0-200)
[2021-03-15 10:48] LABS: ALB/GLOB Ratio 0.9 RATIO (0.9-2.4); AST(SGOT) 21 U/L (15-37); Alanine Aminotransfer ALT/SGPT 24 U/L (13-56); Albumin, Serum 3.4 g/dL (3.2-5.0); Alkaline Phosphatase 53 U/L (45-117); Anion Gap 6 (5-15); BUN 15 mg/dL (7-18); BUN/Creat Ratio 22.1 RATIO (10-20); Calcium,Total 9.2 mg/dL (8.5-10.1); Chloride 106 mmol/L (98-107); Creatinine, Serum 0.68 mg/dL (0.55-1.02); EST Glomerular Filtration Rate 97 mL/min (>60); Est Glom Filt Rate - Afr Amer 117 mL/min (>60); Globulin 3.7 g/dL (2.2-4.2); Glucose 77 mg/dL (74-106); Protein, Total 7.1 g/dL (6.4-8.2); Sodium Level 139 mmol/L (136-145)
[2021-03-16 12:35] LABS: Complement C3 78 mg/dL (82-167)
[2021-03-16 16:16] LABS: Anti-dsDNA Ab 129 IU/mL (0-9)
== END ==
LOC: LAB.FUTURE 07:09 → MTLAB 07:09
PROVIDERS: PCP Family Medicine; Referring Provider Internal Medicine Rheumatology; Visit Provider Internal Medicine Rheumatology
DX: M32.9 Systemic lupus erythematosus, unspecified (principal); M06.4 Inflammatory polyarthropathy; Z79.899 Other long term (current) drug therapy; R76.8 Other specified abnormal immunological findings in serum; G56.03 Carpal tunnel syndrome, bilateral upper limbs
CPT/HCPCS: 36415; 80053; 81002; 82570; 84156; 85025; 86160; 86225

== ENCOUNTER 2021-06-03 15:45 | Outpatient (CLI) | payer BC, SELFPAY ==
[2021-06-03 17:33] LABS: Absolute Neutrophil Count 2.8 X10^3/uL (2.0-7.7); Basophil# 0.01 X10^3/uL; Basophil% 0.3 % (0-1); Eosinophil# 0.02 X10^3/uL; Eosinophils% 0.6 % (0-5); Hematocrit 37.3 % (37-47); Hemoglobin 12.1 g/dL (12.0-15.0); Lymphocyte % 11.4 % (19-41); Mean Corp Hgb Conc 32.4 g/dL (32-36); Mean Corpuscular Hgb 32.6 pg (27.0-32.0); Mean Corpuscular Volume 100.5 fL (81-99); Mean Platelet Vol. 10.6 fl (6.2-12.0); Monocyte# 0.27 X10^3/uL; Monocyte% 7.7 % (0-10); NRBC Flagged by Analyzer 0 % (0-5); Neutrophil % 79.4 % (47-70); POSITIVE DIFFERENTIAL YES; Platelet Count 197 K/mm3 (150-450); RBC Distribution Width CV 13.2 % (11.6-14.6); RBC Distribution Width SD 48.9 fl (35.1-43.9); Red Blood Count 3.71 M/mm3 (4.2-5.4); White Blood Count 3.5 K/mm3 (4.4-11.0)
[2021-06-03 18:04] LABS: Color, Urine Yellow (Yellow); Glucose, Dipstick Normal (Normal); Ketone-Dipstick Negative (Negative); Leukocyte Esterase-Dipstick Negative /ul (Negative); Nitrite-Dipstick Negative (Negative); Occult Blood-Urine Negative /ul (Negative); Protein-Dipstick 15 mg/dl (Negative); Urine Bilirubin Dipstick Negative (Negative); Urine Clarity Clear (Clear); Urine Urobilinogen Normal (Normal); Urine pH 6.5 (5.0 - 8.0)
[2021-06-03 18:05] LABS: Differential Indicated SCAN CRITERIA MET
[2021-06-03 18:23] LABS: ALB/GLOB Ratio 0.9 RATIO (0.9-2.4); AST(SGOT) 18 U/L (15-37); Alanine Aminotransfer ALT/SGPT 20 U/L (13-56); Albumin, Serum 3.5 g/dL (3.2-5.0); Alkaline Phosphatase 72 U/L (45-117); Anion Gap 5 (5-15); BUN 17 mg/dL (7-18); BUN/Creat Ratio 27.6 RATIO (10-20); Calcium,Total 8.8 mg/dL (8.5-10.1); Chloride 101 mmol/L (98-107); Creatinine, Serum 0.62 mg/dL (0.55-1.02); EST Glomerular Filtration Rate 108 mL/min (>60); Est Glom Filt Rate - Afr Amer 131 mL/min (>60); Globulin 3.8 g/dL (2.2-4.2); Glucose 97 mg/dL (74-106); Potassium 3.9 mmol/L (3.5-5.1); Protein, Total 7.3 g/dL (6.4-8.2); Sodium Level 135 mmol/L (136-145)
[2021-06-03 18:29] LABS: Protein, Urine (Random) 7.4 mg/dL (<11.9); Protein:Creat Ratio 308 mg/g CRE (0-200)
[2021-06-03 18:31] LABS: Differential Comment SCANNED
[2021-06-05 13:24] LABS: Complement C3 83 mg/dL (82-167)
[2021-06-05 14:26] LABS: Pathologist Review Reviewed
[2021-06-05 17:52] LABS: Anti-dsDNA Ab 110 IU/mL (0-9)
== END 2021-06-03 23:59 | disposition home or self-care (01) ==
LOC: MTLAB 15:46
PROVIDERS: PCP Family Medicine; Referring Provider Internal Medicine Rheumatology; Visit Provider Internal Medicine Rheumatology
DX: M32.9 Systemic lupus erythematosus, unspecified (principal); M06.4 Inflammatory polyarthropathy; Z79.899 Other long term (current) drug therapy
CPT/HCPCS: 36415; 80053; 81002; 82570; 84156; 85025; 86160; 86225

== ENCOUNTER → 2021-07-31 | Outpatient (CLI) | payer BC, SELFPAY ==
[2021-07-31 10:01] LABS: Hematocrit 40.8 % (37-47); Mean Corp Hgb Conc 31.9 g/dL (32-36); Mean Corpuscular Hgb 31.9 pg (27.0-32.0); Mean Platelet Vol. 10.9 fl (6.2-12.0); Platelet Count 187 K/mm3 (150-450); RBC Distribution Width CV 12.7 % (11.6-14.6); RBC Distribution Width SD 46.6 fl (35.1-43.9); Red Blood Count 4.08 M/mm3 (4.2-5.4); White Blood Count 3.7 K/mm3 (4.4-11.0)
[2021-07-31 10:18] LABS: Anion Gap 7 (5-15); BUN 14 mg/dL (7-18); Calcium,Total 9.3 mg/dL (8.5-10.1); Chloride 103 mmol/L (98-107); Creatinine, Serum 0.64 mg/dL (0.55-1.02); EST Glomerular Filtration Rate 104 mL/min (>60); Est Glom Filt Rate - Afr Amer 126 mL/min (>60); Glucose 76 mg/dL (74-106); Potassium 4.1 mmol/L (3.5-5.1); Sodium Level 139 mmol/L (136-145)
[2021-07-31 10:33] LABS: Microalbumin,Random Urine 74.3 mg/L (NO RANGE EST.); Microalbumin:Creatinine Ratio 72.1 mg/g CRE (<30 mg/g CRE)
[2021-08-01 12:19] LABS: Complement C3 80 mg/dL (82-167)
[2021-08-01 17:38] LABS: Anti-dsDNA Ab 80 IU/mL (0-9)
== END | disposition home or self-care (01) ==
LOC: MTLAB 07:03
PROVIDERS: PCP Family Medicine; Referring Provider Internal Medicine Nephrology; Visit Provider Internal Medicine Nephrology
DX: M32.14 Glomerular disease in systemic lupus erythematosus (principal)
CPT/HCPCS: 36415; 80048; 82043; 82570; 85027; 86160; 86225

== ENCOUNTER → 2021-08-30 | Outpatient (CLI) | payer BC, SELFPAY ==
[2021-08-30 10:20] LABS: Absolute Lymphocyte Count 0.74 X10^3/uL (0.83-4.51); Absolute Neutrophil Count 1.9 X10^3/uL (2.0-7.7); Basophil# 0.02 X10^3/uL; Basophil% 0.6 % (0-1); Eosinophil# 0.04 X10^3/uL; Eosinophils% 1.3 % (0-5); Hematocrit 41.5 % (37-47); Hemoglobin 12.7 g/dL (12.0-15.0); Lymphocyte # 0.74 X10^3/ul (0.83-4.51); Lymphocyte % 23.7 % (19-41); Mean Corp Hgb Conc 30.6 g/dL (32-36); Mean Corpuscular Hgb 31.6 pg (27.0-32.0); Mean Corpuscular Volume 103.2 fL (81-99); Mean Platelet Vol. 10.8 fl (6.2-12.0); Monocyte# 0.45 X10^3/uL; Monocyte% 14.4 % (0-10); NRBC Flagged by Analyzer 0 % (0-5); Neutrophil # 1.86 X10^3/uL (2.7-7.7); Neutrophil % 59.7 % (47-70); Platelet Count 177 K/mm3 (150-450); RBC Distribution Width CV 12.3 % (11.6-14.6); RBC Distribution Width SD 46.5 fl (35.1-43.9); Red Blood Count 4.02 M/mm3 (4.2-5.4); White Blood Count 3.1 K/mm3 (4.4-11.0)
[2021-08-30 10:21] LABS: Color, Urine Yellow (Yellow); Glucose, Dipstick Normal (Normal); Ketone-Dipstick Negative (Negative); Leukocyte Esterase-Dipstick 25 /ul (Negative); Nitrite-Dipstick Negative (Negative); Occult Blood-Urine Negative /ul (Negative); Protein-Dipstick Negative (Negative); Urine Bilirubin Dipstick Negative (Negative); Urine Clarity Clear (Clear); Urine Urobilinogen Normal (Normal)
[2021-08-30 10:32] LABS: AST(SGOT) 22 U/L (15-37); Alanine Aminotransfer ALT/SGPT 23 U/L (13-56); Albumin, Serum 3.4 g/dL (3.2-5.0); Alkaline Phosphatase 48 U/L (45-117); Anion Gap 5 (5-15); BUN 11 mg/dL (7-18); BUN/Creat Ratio 16.5 RATIO (10-20); Calcium,Total 8.7 mg/dL (8.5-10.1); Chloride 106 mmol/L (98-107); Creatinine, Serum 0.67 mg/dL (0.55-1.02); EST Glomerular Filtration Rate 98 mL/min (>60); Est Glom Filt Rate - Afr Amer 119 mL/min (>60); Globulin 3.5 g/dL (2.2-4.2); Glucose 66 mg/dL (74-106); Potassium 3.9 mmol/L (3.5-5.1); Protein, Total 6.9 g/dL (6.4-8.2); Sodium Level 137 mmol/L (136-145)
[2021-08-30 10:39] LABS: Protein, Urine (Random) 18.8 mg/dL (<11.9); Protein:Creat Ratio 266 mg/g CRE (0-200)
[2021-08-31 11:38] LABS: Complement C3 86 mg/dL (82-167)
[2021-09-04 11:15] LABS: Anti-dsDNA Ab 80 IU/mL (0-9)
== END | disposition home or self-care (01) ==
LOC: MTLAB 07:03
PROVIDERS: PCP Family Medicine; Referring Provider Internal Medicine Rheumatology; Visit Provider Internal Medicine Rheumatology
DX: M32.9 Systemic lupus erythematosus, unspecified (principal); M06.4 Inflammatory polyarthropathy; Z79.899 Other long term (current) drug therapy; R76.8 Other specified abnormal immunological findings in serum; G56.03 Carpal tunnel syndrome, bilateral upper limbs
CPT/HCPCS: 36415; 80053; 81002; 82570; 84156; 85025; 86160; 86225

== ENCOUNTER → 2021-12-05 | Outpatient (CLI) | payer BC, SELFPAY ==
[2021-12-05 10:20] LABS: Color, Urine Yellow (Yellow); Glucose, Dipstick Normal (Normal); Ketone-Dipstick Negative (Negative); Leukocyte Esterase-Dipstick 100 /ul (Negative); Nitrite-Dipstick Negative (Negative); Occult Blood-Urine Negative /ul (Negative); Protein-Dipstick 15 mg/dl (Negative); Urine Bilirubin Dipstick Negative (Negative); Urine Clarity Clear (Clear); Urine Urobilinogen Normal (Normal)
[2021-12-05 10:21] LABS: Absolute Lymphocyte Count 0.44 X10^3/uL (0.83-4.51); Absolute Neutrophil Count 1.4 X10^3/uL (2.0-7.7); Basophil# 0.02 X10^3/uL; Basophil% 0.9 % (0-1); Eosinophil# 0.08 X10^3/uL; Eosinophils% 3.4 % (0-5); Hematocrit 39.5 % (37-47); Hemoglobin 12.6 g/dL (12.0-15.0); Lymphocyte # 0.44 X10^3/ul (0.83-4.51); Lymphocyte % 18.9 % (19-41); Mean Corp Hgb Conc 31.9 g/dL (32-36); Mean Corpuscular Hgb 31.5 pg (27.0-32.0); Mean Corpuscular Volume 98.8 fL (81-99); Mean Platelet Vol. 11.6 fl (6.2-12.0); Monocyte# 0.37 X10^3/uL; Monocyte% 15.9 % (0-10); NRBC Flagged by Analyzer 0 % (0-5); Neutrophil # 1.41 X10^3/uL (2.7-7.7); Neutrophil % 60.5 % (47-70); POSITIVE DIFFERENTIAL YES; Platelet Count 183 K/mm3 (150-450); RBC Distribution Width CV 12.2 % (11.6-14.6); RBC Distribution Width SD 44.6 fl (35.1-43.9); White Blood Count 2.3 K/mm3 (4.4-11.0)
[2021-12-05 10:22] LABS: Differential Indicated SCAN CRITERIA MET
[2021-12-05 10:32] LABS: Protein:Creat Ratio 343 mg/g CRE (0-200)
[2021-12-05 10:54] LABS: ALB/GLOB Ratio 1.1 RATIO (0.9-2.4); AST(SGOT) 20 U/L (15-37); Alanine Aminotransfer ALT/SGPT 19 U/L (13-56); Albumin, Serum 3.8 g/dL (3.2-5.0); Alkaline Phosphatase 50 U/L (45-117); Anion Gap 6 (5-15); BUN 9 mg/dL (7-18); BUN/Creat Ratio 13.3 RATIO (10-20); Calcium,Total 9.4 mg/dL (8.5-10.1); Chloride 101 mmol/L (98-107); Creatinine, Serum 0.68 mg/dL (0.55-1.02); EST Glomerular Filtration Rate 97 mL/min (>60); Est Glom Filt Rate - Afr Amer 117 mL/min (>60); Globulin 3.4 g/dL (2.2-4.2); Glucose 70 mg/dL (74-106); Potassium 4.1 mmol/L (3.5-5.1); Protein, Total 7.2 g/dL (6.4-8.2); Sodium Level 135 mmol/L (136-145)
[2021-12-06 15:04] LABS: Pathologist Review Reviewed
[2021-12-08 14:24] LABS: Anti-dsDNA Ab 63 IU/mL (0-9)
[2021-12-08 14:26] LABS: Complement C3 81 mg/dL (82-167)
== END | disposition home or self-care (01) ==
LOC: MTLAB 07:11
PROVIDERS: PCP Family Medicine; Referring Provider Internal Medicine Rheumatology; Visit Provider Internal Medicine Rheumatology
DX: M32.9 Systemic lupus erythematosus, unspecified (principal); M06.4 Inflammatory polyarthropathy; Z79.899 Other long term (current) drug therapy; R76.8 Other specified abnormal immunological findings in serum; G56.03 Carpal tunnel syndrome, bilateral upper limbs
CPT/HCPCS: 36415; 80053; 81002; 82570; 84156; 85025; 86160; 86225

== ENCOUNTER → 2021-12-31 | Outpatient (CLI) | payer BC, SELFPAY ==
[2021-12-31 17:44] LABS: Hematocrit 37.7 % (37-47); Hemoglobin 11.9 g/dL (12.0-15.0); Mean Corp Hgb Conc 31.6 g/dL (32-36); Mean Corpuscular Hgb 31.6 pg (27.0-32.0); Mean Corpuscular Volume 100.3 fL (81-99); Mean Platelet Vol. 10.8 fl (6.2-12.0); Platelet Count 191 K/mm3 (150-450); RBC Distribution Width CV 12.5 % (11.6-14.6); RBC Distribution Width SD 46.2 fl (35.1-43.9); Red Blood Count 3.76 M/mm3 (4.2-5.4)
[2021-12-31 17:55] LABS: Anion Gap 7 (5-15); BUN 12 mg/dL (7-18); BUN/Creat Ratio 16.9 RATIO (10-20); Calcium,Total 9.3 mg/dL (8.5-10.1); Chloride 100 mmol/L (98-107); Creatinine, Serum 0.71 mg/dL (0.55-1.02); EST Glomerular Filtration Rate 91 mL/min (>60); Est Glom Filt Rate - Afr Amer 111 mL/min (>60); Glucose 94 mg/dL (74-106); Potassium 4.3 mmol/L (3.5-5.1); Sodium Level 136 mmol/L (136-145)
[2021-12-31 18:37] LABS: Microalbumin,Random Urine 26.6 mg/L (NO RANGE EST.)
[2022-01-02 16:24] LABS: Anti-dsDNA Ab 64 IU/mL (0-9)
[2022-01-02 16:27] LABS: Complement C3 79 mg/dL (82-167)
== END | disposition home or self-care (01) ==
LOC: MTLAB 15:14
PROVIDERS: PCP Family Medicine; Referring Provider Internal Medicine Nephrology; Visit Provider Internal Medicine Nephrology
DX: M32.9 Systemic lupus erythematosus, unspecified (principal)
CPT/HCPCS: 36415; 80048; 82043; 82570; 85027; 86160; 86225

== ENCOUNTER → 2022-01-15 | Outpatient (CLI) | payer BC, SELFPAY ==
[2022-01-15 10:15] LABS: Absolute Lymphocyte Count 0.64 X10^3/uL (0.83-4.51); Absolute Neutrophil Count 1.6 X10^3/uL (2.0-7.7); Basophil# 0.02 X10^3/uL; Basophil% 0.7 % (0-1); Eosinophil# 0.06 X10^3/uL; Eosinophils% 2.1 % (0-5); Lymphocyte # 0.64 X10^3/ul (0.83-4.51); Lymphocyte % 22.3 % (19-41); Mean Corp Hgb Conc 31.6 g/dL (32-36); Mean Corpuscular Hgb 31.7 pg (27.0-32.0); Mean Corpuscular Volume 100.5 fL (81-99); Mean Platelet Vol. 10.7 fl (6.2-12.0); Monocyte# 0.53 X10^3/uL; Monocyte% 18.5 % (0-10); NRBC Flagged by Analyzer 0 % (0-5); Neutrophil # 1.61 X10^3/uL (2.7-7.7); Neutrophil % 56.1 % (47-70); Platelet Count 251 K/mm3 (150-450); RBC Distribution Width CV 12.5 % (11.6-14.6); RBC Distribution Width SD 46.1 fl (35.1-43.9); Red Blood Count 3.78 M/mm3 (4.2-5.4); White Blood Count 2.9 K/mm3 (4.4-11.0)
[2022-01-15 10:16] LABS: Color, Urine Yellow (Yellow); Glucose, Dipstick Normal (Normal); Ketone-Dipstick Negative (Negative); Leukocyte Esterase-Dipstick Negative /ul (Negative); Nitrite-Dipstick Negative (Negative); Occult Blood-Urine Negative /ul (Negative); Protein-Dipstick 15 mg/dl (Negative); Urine Bilirubin Dipstick Negative (Negative); Urine Clarity Sl. Cloudy (Clear); Urine Urobilinogen Normal (Normal)
[2022-01-15 10:46] LABS: AST(SGOT) 19 U/L (15-37); Alanine Aminotransfer ALT/SGPT 18 U/L (13-56); Albumin, Serum 3.4 g/dL (3.2-5.0); Alkaline Phosphatase 59 U/L (45-117); BUN 12 mg/dL (7-18); BUN/Creat Ratio 18.5 RATIO (10-20); Calcium,Total 9.2 mg/dL (8.5-10.1); Creatinine, Serum 0.65 mg/dL (0.55-1.02); EST Glomerular Filtration Rate 101 mL/min (>60); Est Glom Filt Rate - Afr Amer 123 mL/min (>60); Globulin 3.4 g/dL (2.2-4.2); Glucose 74 mg/dL (74-106); Protein, Total 6.8 g/dL (6.4-8.2)
[2022-01-15 10:47] LABS: Anion Gap 5 (5-15); Chloride 101 mmol/L (98-107); Potassium 4.4 mmol/L (3.5-5.1); Sodium Level 136 mmol/L (136-145)
[2022-01-15 10:57] LABS: Protein, Urine (Random) 31.7 mg/dL (<11.9); Protein:Creat Ratio 302 mg/g CRE (0-200)
[2022-01-16 09:58] LABS: Complement C3 79 mg/dL (82-167)
[2022-01-16 16:43] LABS: Anti-dsDNA Ab 73 IU/mL (0-9)
== END | disposition home or self-care (01) ==
LOC: MTLAB 07:02
PROVIDERS: PCP Family Medicine; Referring Provider Internal Medicine Rheumatology; Visit Provider Internal Medicine Rheumatology
DX: M32.9 Systemic lupus erythematosus, unspecified (principal); M06.4 Inflammatory polyarthropathy; R76.8 Other specified abnormal immunological findings in serum; G56.03 Carpal tunnel syndrome, bilateral upper limbs; Z79.899 Other long term (current) drug therapy
CPT/HCPCS: 36415; 80053; 81002; 82570; 84156; 85025; 86160; 86225

== ENCOUNTER 2022-03-04 07:02 | Outpatient (CLI) | payer BC, SELFPAY ==
[2022-03-04 10:01] LABS: Color, Urine Yellow (Yellow); Glucose, Dipstick Normal (Normal); Ketone-Dipstick Negative (Negative); Leukocyte Esterase-Dipstick Negative /ul (Negative); Nitrite-Dipstick Negative (Negative); Occult Blood-Urine Negative /ul (Negative); Protein-Dipstick 15 mg/dl (Negative); Specific Gravity, Urine 1.015 (1.002-1.030); Urine Bilirubin Dipstick Negative (Negative); Urine Clarity Sl. Cloudy (Clear); Urine Urobilinogen Normal (Normal); Urine pH 6.5 (5.0 - 8.0)
[2022-03-04 10:16] LABS: Protein, Urine (Random) 29.9 mg/dL (<11.9); Protein:Creat Ratio 218 mg/g CRE (0-200)
[2022-03-04 10:17] LABS: ALB/GLOB Ratio 1.1 RATIO (0.9-2.4); AST(SGOT) 15 U/L (15-37); Alanine Aminotransfer ALT/SGPT 20 U/L (13-56); Albumin, Serum 3.5 g/dL (3.2-5.0); Alkaline Phosphatase 70 U/L (45-117); Anion Gap 9 (5-15); BUN 12 mg/dL (7-18); BUN/Creat Ratio 18.5 RATIO (10-20); Calcium,Total 8.9 mg/dL (8.5-10.1); Chloride 103 mmol/L (98-107); Creatinine, Serum 0.65 mg/dL (0.55-1.02); EST Glomerular Filtration Rate 102 mL/min (>60); Est Glom Filt Rate - Afr Amer 123 mL/min (>60); Globulin 3.2 g/dL (2.2-4.2); Glucose 59 mg/dL (74-106); Potassium 4.2 mmol/L (3.5-5.1); Protein, Total 6.7 g/dL (6.4-8.2); Sodium Level 140 mmol/L (136-145)
[2022-03-04 12:23] LABS: Absolute Lymphocyte Count 0.86 X10^3/uL (0.83-4.51); Absolute Neutrophil Count 2.3 X10^3/uL (2.0-7.7); Basophil# 0.03 X10^3/uL; Basophil% 0.8 % (0-1); Eosinophil# 0.09 X10^3/uL; Eosinophils% 2.4 % (0-5); Hematocrit 41.5 % (37-47); Hemoglobin 12.9 g/dL (12.0-15.0); Lymphocyte # 0.86 X10^3/ul (0.83-4.51); Lymphocyte % 22.6 % (19-41); Mean Corp Hgb Conc 31.1 g/dL (32-36); Mean Corpuscular Hgb 31.5 pg (27.0-32.0); Mean Corpuscular Volume 101.5 fL (81-99); Mean Platelet Vol. 11.5 fl (6.2-12.0); Monocyte# 0.47 X10^3/uL; Monocyte% 12.4 % (0-10); NRBC Flagged by Analyzer 0 % (0-5); Neutrophil # 2.34 X10^3/uL (2.7-7.7); Neutrophil % 61.5 % (47-70); Platelet Count 196 K/mm3 (150-450); RBC Distribution Width CV 13.1 % (11.6-14.6); RBC Distribution Width SD 48.6 fl (35.1-43.9); Red Blood Count 4.09 M/mm3 (4.2-5.4); White Blood Count 3.8 K/mm3 (4.4-11.0)
[2022-03-05 12:11] LABS: Complement C3 74 mg/dL (82-167)
[2022-03-05 16:23] LABS: Anti-dsDNA Ab 62 IU/mL (0-9)
== END 2022-03-04 23:59 | disposition home or self-care (01) ==
PROVIDERS: PCP Family Medicine; Referring Provider Internal Medicine Rheumatology; Visit Provider Internal Medicine Rheumatology
DX: M32.9 Systemic lupus erythematosus, unspecified (principal); M06.4 Inflammatory polyarthropathy; Z79.899 Other long term (current) drug therapy; R76.8 Other specified abnormal immunological findings in serum
CPT/HCPCS: 36415; 80053; 81002; 82570; 84156; 85025; 86160; 86225

== ENCOUNTER → 2022-06-03 | Outpatient (CLI) | payer BC, SELFPAY ==
[2022-06-03 17:45] LABS: Absolute Lymphocyte Count 0.71 X10^3/uL (0.83-4.51); Absolute Neutrophil Count 1.9 X10^3/uL (2.0-7.7); Basophil# 0.01 X10^3/uL; Basophil% 0.3 % (0-1); Eosinophil# 0.01 X10^3/uL; Eosinophils% 0.3 % (0-5); Hematocrit 39.1 % (37-47); Hemoglobin 12.4 g/dL (12.0-15.0); Lymphocyte # 0.71 X10^3/ul (0.83-4.51); Lymphocyte % 23.7 % (19-41); Mean Corp Hgb Conc 31.7 g/dL (32-36); Mean Corpuscular Hgb 32.1 pg (27.0-32.0); Mean Corpuscular Volume 101.3 fL (81-99); Mean Platelet Vol. 10.8 fl (6.2-12.0); Monocyte% 13.4 % (0-10); NRBC Flagged by Analyzer 0 % (0-5); Neutrophil # 1.86 X10^3/uL (2.7-7.7); Neutrophil % 62.3 % (47-70); Platelet Count 186 K/mm3 (150-450); RBC Distribution Width CV 12.2 % (11.6-14.6); RBC Distribution Width SD 45.2 fl (35.1-43.9); Red Blood Count 3.86 M/mm3 (4.2-5.4)
[2022-06-03 17:54] LABS: Color, Urine Yellow (Yellow); Glucose, Dipstick Normal (Normal); Ketone-Dipstick Negative (Negative); Leukocyte Esterase-Dipstick Negative /ul (Negative); Nitrite-Dipstick Negative (Negative); Occult Blood-Urine Negative /ul (Negative); Protein-Dipstick Negative (Negative); Urine Bilirubin Dipstick Negative (Negative); Urine Clarity Clear (Clear); Urine Urobilinogen Normal (Normal); Urine pH 6.5 (5.0 - 8.0)
[2022-06-03 18:09] LABS: Protein, Urine (Random) 7.9 mg/dL (<11.9); Protein:Creat Ratio 262 mg/g CRE (0-200)
[2022-06-03 18:23] LABS: ALB/GLOB Ratio 1.1 RATIO (0.9-2.4); AST(SGOT) 22 U/L (15-37); Alanine Aminotransfer ALT/SGPT 23 U/L (13-56); Albumin, Serum 3.9 g/dL (3.2-5.0); Alkaline Phosphatase 79 U/L (45-117); Anion Gap 5 (5-15); BUN 15 mg/dL (7-18); BUN/Creat Ratio 20.9 RATIO (10-20); Calcium,Total 9.5 mg/dL (8.5-10.1); Chloride 102 mmol/L (98-107); Creatinine, Serum 0.72 mg/dL (0.55-1.02); EST Glomerular Filtration Rate 90 mL/min (>60); Est Glom Filt Rate - Afr Amer 109 mL/min (>60); Globulin 3.5 g/dL (2.2-4.2); Glucose 97 mg/dL (74-106); Potassium 4.1 mmol/L (3.5-5.1); Protein, Total 7.4 g/dL (6.4-8.2); Sodium Level 137 mmol/L (136-145)
[2022-06-05 18:41] LABS: Anti-dsDNA Ab 53 IU/mL (0-9)
[2022-06-05 18:49] LABS: Complement C3 80 mg/dL (82-167)
== END | disposition home or self-care (01) ==
PROVIDERS: PCP Family Medicine; Referring Provider Internal Medicine Rheumatology; Visit Provider Internal Medicine Rheumatology
DX: M32.14 Glomerular disease in systemic lupus erythematosus (principal); M06.4 Inflammatory polyarthropathy; Z79.899 Other long term (current) drug therapy; R76.8 Other specified abnormal immunological findings in serum; G56.03 Carpal tunnel syndrome, bilateral upper limbs
CPT/HCPCS: 36415; 80053; 81002; 82570; 84156; 85025; 86160; 86225

== ENCOUNTER → 2022-08-05 | Outpatient (CLI) | payer BC, SELFPAY ==
[2022-08-05 10:37] LABS: Color, Urine Yellow (Yellow); Glucose, Dipstick Normal (Normal); Ketone-Dipstick Negative (Negative); Leukocyte Esterase-Dipstick Negative /ul (Negative); Nitrite-Dipstick Negative (Negative); Occult Blood-Urine Negative /ul (Negative); Protein-Dipstick 15 mg/dl (Negative); Urine Bilirubin Dipstick Negative (Negative); Urine Clarity Sl. Cloudy (Clear); Urine Urobilinogen Normal (Normal)
[2022-08-05 10:38] LABS: Absolute Lymphocyte Count 0.61 X10^3/uL (0.83-4.51); Absolute Neutrophil Count 2.2 X10^3/uL (2.0-7.7); Basophil# 0.02 X10^3/uL; Basophil% 0.6 % (0-1); Eosinophil# 0.07 X10^3/uL; Eosinophils% 2.1 % (0-5); Hematocrit 41.3 % (37-47); Hemoglobin 13.2 g/dL (12.0-15.0); Lymphocyte # 0.61 X10^3/ul (0.83-4.51); Lymphocyte % 18.1 % (19-41); Mean Corpuscular Hgb 32.9 pg (27.0-32.0); Monocyte# 0.46 X10^3/uL; Monocyte% 13.6 % (0-10); NRBC Flagged by Analyzer 0 % (0-5); Neutrophil % 65.3 % (47-70); Platelet Count 207 K/mm3 (150-450); RBC Distribution Width CV 12.2 % (11.6-14.6); Red Blood Count 4.01 M/mm3 (4.2-5.4); White Blood Count 3.4 K/mm3 (4.4-11.0)
[2022-08-05 10:49] LABS: Protein, Urine (Random) 32.5 mg/dL (<11.9); Protein:Creat Ratio 248 mg/g CRE (0-200)
[2022-08-05 10:56] LABS: ALB/GLOB Ratio 1.1 RATIO (0.9-2.4); AST(SGOT) 19 U/L (15-37); Alanine Aminotransfer ALT/SGPT 21 U/L (13-56); Albumin, Serum 3.7 g/dL (3.2-5.0); Alkaline Phosphatase 79 U/L (45-117); Anion Gap 4 (5-15); BUN 17 mg/dL (7-18); BUN/Creat Ratio 22.6 RATIO (10-20); Calcium,Total 9.4 mg/dL (8.5-10.1); Chloride 106 mmol/L (98-107); Creatinine, Serum 0.75 mg/dL (0.55-1.02); EST Glomerular Filtration Rate 86 mL/min (>60); Est Glom Filt Rate - Afr Amer 104 mL/min (>60); Globulin 3.5 g/dL (2.2-4.2); Glucose 81 mg/dL (74-106); Potassium 4.3 mmol/L (3.5-5.1); Protein, Total 7.2 g/dL (6.4-8.2); Sodium Level 139 mmol/L (136-145)
[2022-08-06 05:07] LABS: Complement C3 80 mg/dL (82-167)
[2022-08-06 12:08] LABS: Anti-dsDNA Ab 59 IU/mL (0-9)
== END | disposition home or self-care (01) ==
LOC: MTLAB 07:46
PROVIDERS: PCP Family Medicine; Referring Provider Internal Medicine Rheumatology; Visit Provider Internal Medicine Rheumatology
DX: M32.9 Systemic lupus erythematosus, unspecified (principal); M06.4 Inflammatory polyarthropathy; Z79.899 Other long term (current) drug therapy; R76.8 Other specified abnormal immunological findings in serum
CPT/HCPCS: 36415; 80053; 81002; 82570; 84156; 85025; 86160; 86225

== ENCOUNTER → 2022-09-30 | Outpatient (CLI) | payer BC, SELFPAY ==
[2022-09-30 10:24] LABS: Color, Urine Yellow (Yellow); Glucose, Dipstick Normal (Normal); Ketone-Dipstick Negative (Negative); Leukocyte Esterase-Dipstick Negative /ul (Negative); Nitrite-Dipstick Negative (Negative); Occult Blood-Urine Negative /ul (Negative); Protein-Dipstick 15 mg/dl (Negative); Urine Bilirubin Dipstick Negative (Negative); Urine Clarity Clear (Clear); Urine Urobilinogen Normal (Normal)
[2022-09-30 10:29] LABS: Absolute Lymphocyte Count 0.62 X10^3/uL (0.83-4.51); Absolute Neutrophil Count 2.2 X10^3/uL (2.0-7.7); Basophil# 0.01 X10^3/uL; Basophil% 0.3 % (0-1); Eosinophil# 0.04 X10^3/uL; Eosinophils% 1.2 % (0-5); Hematocrit 42.1 % (37-47); Hemoglobin 13.6 g/dL (12.0-15.0); Lymphocyte # 0.62 X10^3/ul (0.83-4.51); Lymphocyte % 19.3 % (19-41); Mean Corp Hgb Conc 32.3 g/dL (32-36); Mean Corpuscular Hgb 32.5 pg (27.0-32.0); Mean Corpuscular Volume 100.7 fL (81-99); Mean Platelet Vol. 10.5 fl (6.2-12.0); Monocyte% 12.4 % (0-10); NRBC Flagged by Analyzer 0 % (0-5); Neutrophil # 2.15 X10^3/uL (2.7-7.7); Neutrophil % 66.8 % (47-70); Platelet Count 180 K/mm3 (150-450); RBC Distribution Width CV 11.9 % (11.6-14.6); RBC Distribution Width SD 44.2 fl (35.1-43.9); Red Blood Count 4.18 M/mm3 (4.2-5.4); White Blood Count 3.2 K/mm3 (4.4-11.0)
[2022-09-30 10:36] LABS: Protein, Urine (Random) 27.5 mg/dL (<11.9); Protein:Creat Ratio 229 mg/g CRE (0-200)
[2022-09-30 11:10] LABS: AST(SGOT) 22 U/L (15-37); Alanine Aminotransfer ALT/SGPT 17 U/L (13-56); Albumin, Serum 3.8 g/dL (3.2-5.0); Alkaline Phosphatase 82 U/L (45-117); Anion Gap 6 (5-15); BUN 13 mg/dL (7-18); BUN/Creat Ratio 15.7 RATIO (10-20); Calcium,Total 9.7 mg/dL (8.5-10.1); Chloride 103 mmol/L (98-107); Creatinine, Serum 0.83 mg/dL (0.55-1.02); EST Glomerular Filtration Rate 77 mL/min (>60); Est Glom Filt Rate - Afr Amer 93 mL/min (>60); Globulin 3.8 g/dL (2.2-4.2); Glucose 82 mg/dL (74-106); Potassium 4.6 mmol/L (3.5-5.1); Protein, Total 7.6 g/dL (6.4-8.2); Sodium Level 136 mmol/L (136-145)
[2022-09-30 15:10] LABS: Microalbumin,Random Urine 32.7 mg/L (NO RANGE EST.); Microalbumin:Creatinine Ratio 27.2 mg/g CRE (<30 mg/g CRE)
[2022-10-01 05:07] LABS: Complement C3 88 mg/dL (82-167)
[2022-10-01 13:08] LABS: Anti-dsDNA Ab 54 IU/mL (0-9)
== END | disposition home or self-care (01) ==
LOC: MTLAB 07:44
PROVIDERS: PCP Family Medicine; Referring Provider Internal Medicine Rheumatology; Visit Provider Internal Medicine Rheumatology
DX: Z79.899 Other long term (current) drug therapy (principal); M06.4 Inflammatory polyarthropathy; M32.14 Glomerular disease in systemic lupus erythematosus
CPT/HCPCS: 36415; 80053; 81002; 82043; 82570; 84156; 85025; 86160; 86225

== ENCOUNTER → 2022-12-31 | Outpatient (CLI) | payer BC, SELFPAY ==
[2022-12-31 10:13] LABS: Absolute Lymphocyte Count 0.71 X10^3/uL (0.83-4.51); Absolute Neutrophil Count 1.9 X10^3/uL (2.0-7.7); Basophil# 0.02 X10^3/uL; Basophil% 0.6 % (0-1); Eosinophil# 0.09 X10^3/uL; Eosinophils% 2.8 % (0-5); Hematocrit 42.5 % (37-47); Hemoglobin 13.3 g/dL (12.0-15.0); Lymphocyte # 0.71 X10^3/ul (0.83-4.51); Lymphocyte % 22.2 % (19-41); Mean Corp Hgb Conc 31.3 g/dL (32-36); Mean Corpuscular Hgb 31.8 pg (27.0-32.0); Mean Corpuscular Volume 101.7 fL (81-99); Mean Platelet Vol. 11.1 fl (6.2-12.0); Monocyte# 0.46 X10^3/uL; Monocyte% 14.4 % (0-10); NRBC Flagged by Analyzer 0 % (0-5); Neutrophil # 1.92 X10^3/uL (2.7-7.7); Platelet Count 204 K/mm3 (150-450); RBC Distribution Width CV 12.6 % (11.6-14.6); RBC Distribution Width SD 46.8 fl (35.1-43.9); Red Blood Count 4.18 M/mm3 (4.2-5.4); White Blood Count 3.2 K/mm3 (4.4-11.0)
[2022-12-31 10:31] LABS: Color, Urine Yellow (Yellow); Glucose, Dipstick Normal (Normal); Ketone-Dipstick Negative (Negative); Leukocyte Esterase-Dipstick Negative /ul (Negative); Nitrite-Dipstick Negative (Negative); Occult Blood-Urine Negative /ul (Negative); Protein-Dipstick 15 mg/dl (Negative); Urine Bilirubin Dipstick Negative (Negative); Urine Clarity Clear (Clear); Urine Urobilinogen Normal (Normal)
[2022-12-31 10:42] LABS: AST(SGOT) 16 U/L (15-37); Alanine Aminotransfer ALT/SGPT 20 U/L (13-56); Albumin, Serum 3.6 g/dL (3.2-5.0); Alkaline Phosphatase 82 U/L (45-117); Anion Gap 4 (5-15); BUN 15 mg/dL (7-18); BUN/Creat Ratio 19.9 RATIO (10-20); Calcium,Total 9.3 mg/dL (8.5-10.1); Chloride 104 mmol/L (98-107); Creatinine, Serum 0.75 mg/dL (0.55-1.02); EST Glomerular Filtration Rate 85 mL/min (>60); Est Glom Filt Rate - Afr Amer 103 mL/min (>60); Globulin 3.7 g/dL (2.2-4.2); Glucose 77 mg/dL (74-106); Potassium 4.3 mmol/L (3.5-5.1); Protein, Total 7.3 g/dL (6.4-8.2); Sodium Level 138 mmol/L (136-145)
[2022-12-31 11:08] LABS: Microalbumin,Random Urine 15.9 mg/L (NO RANGE EST.); Microalbumin:Creatinine Ratio 13.6 mg/g CRE (<30 mg/g CRE); Protein, Urine (Random) 21.6 mg/dL (<11.9); Protein:Creat Ratio 185 mg/g CRE (0-200)
[2023-01-01 05:07] LABS: Complement C3 81 mg/dL (82-167)
[2023-01-01 12:09] LABS: Anti-dsDNA Ab 39 IU/mL (0-9)
== END | disposition home or self-care (01) ==
PROVIDERS: PCP Family Medicine; Referring Provider Internal Medicine Rheumatology; Visit Provider Internal Medicine Rheumatology
DX: M32.9 Systemic lupus erythematosus, unspecified (principal); M06.4 Inflammatory polyarthropathy; M32.14 Glomerular disease in systemic lupus erythematosus; Z79.899 Other long term (current) drug therapy; R76.8 Other specified abnormal immunological findings in serum; G56.03 Carpal tunnel syndrome, bilateral upper limbs
CPT/HCPCS: 36415; 80053; 81002; 82043; 82570; 84156; 85025; 86160; 86225

== ENCOUNTER → 2023-03-19 | Outpatient (CLI) | payer BC, SELFPAY ==
[2023-03-19 10:11] LABS: Color, Urine Yellow (Yellow); Glucose, Dipstick Normal (Normal); Ketone-Dipstick Negative (Negative); Leukocyte Esterase-Dipstick Negative /ul (Negative); Nitrite-Dipstick Negative (Negative); Occult Blood-Urine Negative /ul (Negative); Protein-Dipstick 15 mg/dl (Negative); Urine Bilirubin Dipstick Negative (Negative); Urine Clarity Clear (Clear); Urine Urobilinogen Normal (Normal)
[2023-03-19 10:14] LABS: Absolute Lymphocyte Count 0.58 X10^3/uL (0.83-4.51); Absolute Neutrophil Count 0.9 X10^3/uL (2.0-7.7); Basophil# 0.02 X10^3/uL; Eosinophil# 0.07 X10^3/uL; Eosinophils% 3.5 % (0-5); Hemoglobin 12.8 g/dL (12.0-15.0); Lymphocyte # 0.58 X10^3/ul (0.83-4.51); Lymphocyte % 28.9 % (19-41); Mean Corpuscular Hgb 31.6 pg (27.0-32.0); Mean Corpuscular Volume 98.8 fL (81-99); Mean Platelet Vol. 11.1 fl (6.2-12.0); Monocyte% 19.9 % (0-10); NRBC Flagged by Analyzer 0 % (0-5); Neutrophil # 0.93 X10^3/uL (2.7-7.7); Neutrophil % 46.2 % (47-70); POSITIVE DIFFERENTIAL YES; Platelet Count 159 K/mm3 (150-450); RBC Distribution Width CV 11.9 % (11.6-14.6); RBC Distribution Width SD 43.7 fl (35.1-43.9); Red Blood Count 4.05 M/mm3 (4.2-5.4)
[2023-03-19 10:25] LABS: Differential Indicated SCAN CRITERIA MET
[2023-03-19 10:42] LABS: Differential Comment SCANNED
[2023-03-19 10:51] LABS: Protein, Urine (Random) 25.9 mg/dL (<11.9); Protein:Creat Ratio 206 mg/g CRE (0-200)
[2023-03-19 11:30] LABS: ALB/GLOB Ratio 1.1 RATIO (0.9-2.4); AST(SGOT) 22 U/L (15-37); Alanine Aminotransfer ALT/SGPT 23 U/L (13-56); Albumin, Serum 3.6 g/dL (3.2-5.0); Alkaline Phosphatase 72 U/L (45-117); Anion Gap 3 (5-15); BUN 14 mg/dL (7-18); BUN/Creat Ratio 19.6 RATIO (10-20); Calcium,Total 9.2 mg/dL (8.5-10.1); Chloride 104 mmol/L (98-107); Creatinine, Serum 0.72 mg/dL (0.55-1.02); EST Glomerular Filtration Rate 90 mL/min (>60); Est Glom Filt Rate - Afr Amer 109 mL/min (>60); Globulin 3.4 g/dL (2.2-4.2); Glucose 80 mg/dL (74-106); Potassium 4.6 mmol/L (3.5-5.1); Sodium Level 135 mmol/L (136-145)
[2023-03-20 06:09] LABS: Complement C3 76 mg/dL (82-167)
[2023-03-20 11:08] LABS: Anti-dsDNA Ab 30 IU/mL (0-9)
[2023-03-20 13:21] LABS: Pathologist Review Reviewed
== END | disposition home or self-care (01) ==
LOC: MTLAB 07:11
PROVIDERS: PCP Family Medicine; Referring Provider Internal Medicine Rheumatology; Visit Provider Internal Medicine Rheumatology
DX: M32.9 Systemic lupus erythematosus, unspecified (principal); M06.4 Inflammatory polyarthropathy; Z79.899 Other long term (current) drug therapy; R76.8 Other specified abnormal immunological findings in serum; G56.03 Carpal tunnel syndrome, bilateral upper limbs
CPT/HCPCS: 36415; 80053; 81002; 82570; 84156; 85025; 86160; 86225

== ENCOUNTER → 2023-04-22 | Outpatient (CLI) | payer BC, SELFPAY ==
--- OUTSIDE RECORDS SUMMARY | 2023-04-22 07:23 | XMS RPT_ITS | CCD ---
Author Name Unknown Address [address] [place] [address] Organization [facility] Care Team Providers Care Gullet Slitter Name Role Phone Jayce Khan Attending Unavailable Bill, Jayce Primary Care Unavailable Jayce Khan Admitting Unavailable Jayce Khan Attending Unavailable Jayce Khan Primary Care Unavailable Ruben Elizondo Admitting Unavailable Ruben Elizondo Attending Unavailable Wiliam Carter [facility] Care Unavailable Furness, Wiliam Michael Primary Care Provider Furnchava, Wiliam Michael Primary Care Provider EVELYN HEARD Admitting Unavailab le DANIELA, EVELYN VILLANUEVA Attending Unavailab le FURNESS, [facility] Primary Care Unavai lable DANIELA, EVELYN VILLANUEVA Admitting Unavailab le DANIELA, EVELYN VILLANUEVA Attending Unavailab le FURNESS, [facility] Primary Care Unavai lable FURNESS, [facility] Primary Care Unavai lable DANIELA, EVELYN VILLANUEVA Admitting Unavailab le DANIELA, EVELYN VILLANUEVA Referring Unavailab le DANIELA, EVELYN VILLANUEVA Admitting Unavailab le DANIELA, EVELYN VILLANUEVA Referring Unavailab le FURNESS, [facility] Primary Care Unavai sondrale ASHOK SOTOMAYOR Referring Unavailable CORDASCOGIL Admitting Unavail able CORDASCOGIL Attending Unavail able FURNESS, [facility] Care Unavai lable FURNESS, [facility] Unavailable ASHOK SOTOMAYOR Attending Unavailable ASHLEIGH CUMMINGS Referring Unavailable FURNESS, [facility] Care Unavai lable ASHLEIGH CUMMINGS Admitting Unavailable ASHLEIGH CUMMINGS Referring Unavailable FURNESS, [facility] Faith DANICA Castañeda Attending Unavailable CUMMINGS, ASHLEIGH POWERS Attending Unavailable FURNESS, [facility] Care Faith dirk HEARD, EVELYN VILLANUEVA Attending Unavailab le FURNESS, [facility] Artivamadeline labigor DANIELA, EVELYN VILLANUEVA Attending Unavailab le FURNESS, [facility] Artivamadeline amarole ASHLEIGH CUMMINGS Attending Unavailable FURNESS, [facility] Artivamadeline amaroASHLEIGH Andrade Admitting Unavailable CUMMINGS, ASHLEIGH POWERS Referring Unavailable FURNESS, [facility] Artivamadeline labigor Gallowayess, Wiliam T Unavailable Unavailable Unavailable Self, Referral Referring Unavailable FURNESS, WILIAM Hauser Attending Unavailable FURNESS, WILIAM Hauser Primary Care Unavailable FURNESS, WILIAM T Referring Unavailable FURNESS, WILIAM Hauser Attending Unavailable FURNESS, WILIAM Hauser Primary Care Unavailable Furness Wiliam AMARAL Primary Care Provider Wiliam Carter MD Unavailable WILIAM CARTER Attending Unavailable FURNESS, WILIAM Hauser Primary Care Unavailable Allergies Allergy Classification Reported Allergen(s) Allergy Type Date of Onset Reaction(s) Facility Lidocaine (2 sources) Lidocaine; Translations: [lidocaine] Drug Allergy Anaphylaxis [facility] Work Phone: Macrolides (antibiotic) (2 sources) Azithromycin; Translations: [Zithromax] Drug Allergy Diarrhea, Abdominal pain [facility] Work Phone: Penicillins (antibiotic) (2 sources) Amoxicillin; Translations: [amoxicillin] Drug Allergy Hives [facility] Work Phone: (8 sources) Amoxicillin; Translations: [amoxicillin] Drug Allergy 10-02-19 23 Hives, Rash, Unknown [facility] Repository (6 sources) Azithromycin; Translations: [Zithromax] Drug Allergy Diarrhea, Abdominal pain [facility] Repository (17 sources) Azithromycin; Translations: [AZITHROMYCIN] Drug Allergy 11-07-[address] [facility] (13 sources) Penicillins; Translations: [PENICILLINS] Propensity to adverse reactions to drug 11-07-[address] [facility] (13 sources) Bee Venom Protein (Honey Bee); Translations: [BEE VENOM PROTEIN (HONEY BEE)] Propensity to adverse reactions to drug 11-07-[address] [facility] (7 sources) Sulfamethoxazole / Trimethoprim; Translations: [SULFAMETHOXAZOLE-T RIMETHOPRIM] Drug Allergy 02-24-[address] [facility] (2 sources) Lidocaine Drug Allergy 03-10-20 Other (See Comments) [facility] (7 sources) Lidocaine; Translations: [lidocaine] Drug Allergy 10-02-19 Anaphylaxis [facility] Work Phone: Medications Current Medications Medication Drug Class(es) Dates Sig (Normalized) Sig (Original) 1 ml belimumab 200 mg/ml auto-injector (8 sources) B Lymphocyte Stimulator-specifi c Inhibitor Start: 08-27-2020 Benlysta 200 mg/mL injection Inject under the skin. 0 08/27/2020 Active ciprofloxacin 500 mg oral tablet (2 sources) Quinolone Antimicrobial Start: 2020 End: 02-27-2020 take 1 tablet by mouth twice daily ciprofloxacin HCl (CIPRO) 500 MG tablet Take 1 (one) tablet (500 mg total) by mouth 2 (two) times a day for 3 days . 6 tablet 0 2020 02/27/2020 Active diphenhydrAMINE hydrochloride 25 mg oral capsule (4 sources) Histamine-1 Receptor Antagonist Start: 02-26-2020 End: 03-27-2020 take 1 capsule by mouth every six hours as needed diphenhydrAMINE (BENADRYL) 25 mg capsule Take 1 (one) capsule (25 mg total) by mouth every 6 (six) hours as needed for itching . 24 capsule 2 02/26/2020 03/27/2020 Active Completed/Discontinued Medications Medication Drug Class(es) Dates Sig (Normalized) Sig (Original) [id number] 200 actuat albuterol 0.09 mg/actuat metered dose inhaler (5 sources) beta2-Adrenergic Agonist Start: 07-19-2020 take 2 puff(s) by inhalation four times daily as needed Ventolin HFA 108 (90 Base) MCG/ACT Inhalation Aerosol Solution INHALE 2 PUFFS 4 times daily PRN shortness of breath Quantity: 1 Refills: 0 Ordered: 20-Jul-2020 Ashok Pradhan DO Start : 19-Jul-2020 Active alendronic acid 70 mg oral tablet (5 sources) Bisphosphonate Start: 06-29-2020 take 1 tablet by mouth every week Alendronate Sodium 70 MG Oral Tablet take 1 tablet by mouth every week Quantity: 12 Refills: 3 Ordered: 29-Jun-2020 Wiliam Carter MD Start : 29-Jun-2020 Active chlorhexidine gluconate 1.2 mg/ml mouthwash (1 source) Start: 02-25-2020 End: 02-26-2020 chlorhexidine (PERIDEX) 0.12 % solution 15 mL 1 ml dexamethasone phosphate 4 mg/ml injection (1 source) Corticosteroid Start: 02-25-2020 End: 02-26-2020 dexamethasone (DECADRON) injection 4 mg docusate sodium 50 mg / sennosides, retirement 8.6 mg oral tablet (1 source) Start: 02-25-2020 End: 02-26-2020 senna-docusate (SENNA-S) 8.6-50 mg per tablet 1 tablet 0.4 ml enoxaparin sodium 100 mg/ml prefilled syringe (1 source) Low Molecular Weight Heparin Start: 02-25-2020 End: 02-26-2020 enoxaparin (LOVENOX) syringe 40 mg famotidine 20 mg oral tablet (1 source) Histamine-2 Receptor Antagonist Start: 02-25-2020 End: 02-26-2020 famotidine (PEPCID) tablet 20 mg 20 ml fentaNYL 0.05 mg/ml injection (1 source) Opioid Agonist Start: 02-25-2020 End: 02-26-2020 fentaNYL (SUBLIMAZE) injection 50-100 mcg ibuprofen 600 mg oral tablet (6 sources) Nonsteroidal Anti-inflammatory Drug Start: 03-26-2020 Ibuprofen 600 MG Oral Tablet Quantity: 20 Refills: 0 Ordered: 26-Mar-2020 DO Start : 26-Mar-2020 Active meloxicam 7.5 mg oral tablet (11 sources) Nonsteroidal Anti-inflammatory Drug Start: 02-25-2020 End: 02-26-2020 take 7.5 mg by mouth twice daily at mealtime for pain 7.5 mg, Oral, 2 times daily PRN, pain, Starting 02/25/20 at 2230 Give with Food Problems Active Problems Problem Classification Problem Date Documented Date Episodic/Chronic Immunizations and screening for infectious disease (20 sources) Patient encounter status; Translations: [Other specified vaccination] Episodic Inflammation; infection of eye (except that caused by tuberculosis or sexually transmitteddisease) (3 sources) Hordeolum externum of upper eyelid of left eye; Translations: [Hordeolum externum left upper eyelid] Onset: 10-02-2022 10-02-2022 Episodic Other nervous system disorders (1 source) Ulnar neuropathy; 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, 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 Other nervous system disorders (2 sources) Bilateral carpal tunnel syndrome; Translations: [Bilateral carpal tunnel syndrome] Other nervous system disorders (8 sources) Carpal tunnel syndrome of right wrist; Translations: [Carpal tunnel syndrome of right wrist] Onset: 12-23-2019 12-23-2019 Other nervous system disorders (6 sources) Carpal tunnel syndrome of left wrist; Translations: [Carpal tunnel syndrome of left wrist] Onset: 12-23-2019 12-23-2019 Residual codes; unclassified (2 sources) History of decompression of median nerve; Translations: [S/P carpal tunnel release] Episodic Residual codes; unclassified (4 sources) Past history of procedure; Translations: [Other specified personal history presenting hazards to health] Onset: 09-05-2020 Episodic Rheumatoid arthritis and related disease (8 sources) Rheumatoid arthritis; Translations: [Rheumatoid arthritis] Onset: 10-01-2022 10-01-2022 Chronic Systemic lupus erythematosus and connective tissue disorders (8 sources) Systemic lupus erythematosus; Translations: [Systemic lupus erythematosus] Onset: 10-01-2022 10-01-2022 Chronic Past or Other Problems Problem Classification Problem Date Documented Da te Episodic/Chronic Nonspecific chest pain (8 sources) Chest wall pain; Translations: [Painful respiration] Onset: 10-01-2022 Resolved: 11-03-2022 10-01-2022 Episodic Other lower respiratory disease (8 sources) Nodule of lung; Translations: [Solitary pulmonary nodule] Onset: 10-01-2022 Resolved: 11-03-2022 10-01-2022 Episodic Other upper respiratory infections (3 sources) Sore throat symptom; Translations: [Acute pharyngitis] Onset: 10-01-2022 Resolved: 11-03-2022 10-01-2022 Episodic Respiratory failure; insufficiency; arrest (adult) (4 sources) Respiratory failure; Translations: [Respiratory failure (HCC)] Onset: 02-25-2020 02-25-2020 Episodic Results Test Name Value Interpretation Reference Range Facil ity Vital Signs Date Time Vital Sign Value Performing Clinician Facility 11-03-2022 13:50-0400 Body height 161.3 cm Wiliam Carter MD Work Phone: [facility] 11-03-2022 13:50-0400 Body mass index (BMI) [Ratio] 24.48 kg/m2 Wiliam Carter MD Work Phone: [facility] 11-03-2022 13:50-0400 Body weight 63.69 kg Wiliam Carter MD Work Phone: [facility] 11-03-2022 13:50-0400 Diastolic blood pressure 64 mm[Hg] Wiliam Carter MD Work Phone: [facility] 11-03-2022 13:50-0400 Heart rate 74 /min Wiliam Carter MD Work Phone: [facility] 11-03-2022 13:50-0400 SaO2% (BldA) [Mass fraction] 99 % Wiliam Carter MD Work Phone: [facility] 11-03-2022 13:50-0400 Systolic blood pressure 112 mm[Hg] Wiliam Carter MD Work Phone: [facility] 10-02-2022 11:33-0400 Body height 161.3 cm Wiliam Carter MD Work Phone: [facility] 10-02-2022 11:33-0400 Body mass index (BMI) [Ratio] 24.34 kg/m2 Wiliam Carter MD Work Phone: [facility] 10-02-2022 11:33-0400 Body weight 63.32 kg Wiliam Carter MD Work Phone: [facility] 10-02-2022 11:33-0400 Diastolic blood pressure 64 mm[Hg] Wiliam Carter MD Work Phone: [facility] 10-02-2022 11:33-0400 Heart rate 77 /min Wiliam Carter MD Work Phone: [facility] 10-02-2022 11:33-0400 SaO2% (BldA) [Mass fraction] 97 % Wiliam Carter MD Work Phone: [facility] 10-02-2022 11:33-0400 Systolic blood pressure 112 mm[Hg] Wiliam Carter MD Work Phone: [facility] 01-03-2022 11:13-0400 Body height 161.29 cm Wiliam Carter Work Phone: [employer] [facility] Work Phone: 01-03-2022 11:13-0400 Body mass index (BMI) [Ratio] 22.5 kg/m2 Wiliam Carter Work Phone: [employer] [facility] Work Phone: 01-03-2022 11:13-0400 Body surface area Derived from formula 1.61 m2 Wiliam Carter Work Phone: [employer] [facility] Work Phone: 01-03-2022 11:13-0400 Body temperature 101.1 [degF] Wiliam Carter Work Phone: [email or web address] [facility] Work Phone: 01-03-2022 11:13-0400 Body weight 58.54 kg Wiliam Carter Work Phone: [employer] [facility] Work Phone: 01-03-2022 11:13-0400 Diastolic blood pressure 68 mm[Hg] Wiliam Carter Work Phone: [employer] [facility] Work Phone: 01-03-2022 11:13-0400 Heart rate 105 /min Wiliam Carter Work Phone: [facility] Work Phone: 01-03-2022 11:13-0400 SaO2% (BldA) [Mass fraction] 98 % Wiliam Carter Work Phone: [facility] Work Phone: 01-03-2022 11:13-0400 Systolic blood pressure 126 mm[Hg] Wiliam Carter Work Phone: [facility] Work Phone: 10-03-2021 08:38-0400 Body height 161.29 cm Wiliam Carter Work Phone: [facility] Work Phone: 10-03-2021 08:38-0400 Body mass index (BMI) [Ratio] 23.44 kg/m2 Wiliam Carter Work Phone: [facility] Work Phone: 10-03-2021 08:38-0400 Body surface area Derived from formula 1.64 m2 Wiliam Carter Work Phone: [facility] Work Phone: 10-03-2021 08:38-0400 Body weight 60.98 kg Wiliam Carter Work Phone: [facility] Work Phone: 10-03-2021 08:38-0400 Diastolic blood pressure 68 mm[Hg] Wiliam Carter Work Phone: [facility] Work Phone: 10-03-2021 08:38-0400 Heart rate 67 /min Wiliam Carter Work Phone: [facility] Work Phone: 10-03-2021 08:38-0400 SaO2% (BldA) [Mass fraction] 98 % Wiliam Carter Work Phone: [facility] Work Phone: 10-03-2021 08:38-0400 Systolic blood pressure 110 mm[Hg] Wiliam Carter Work Phone: [facility] Work Phone: 08-31-2020 10:59-0400 Body height 161.29 cm Wiliam Carter Work Phone: [facility] Work Phone: 08-31-2020 10:59-0400 Body mass index (BMI) [Ratio] 25.82 kg/m2 Wiliam Carter Work Phone: [facility] Work Phone: 08-31-2020 10:59-0400 Body surface area Derived from formula 1.71 m2 Wiliam Carter Work Phone: [facility] Work Phone: 08-31-2020 10:59-0400 Body temperature 97.5 [degF] Wiliam Carter Work Phone: [employer] [facility] Work Phone: 08-31-2020 10:59-0400 Body weight 67.16 kg Wiliam Carter Work Phone: [facility] Work Phone: 08-31-2020 10:59-0400 Diastolic blood pressure 64 mm[Hg] Wiliam Carter Work Phone: [facility] [employer] [facility] Work Phone: 08-31-2020 10:59-0400 Heart rate 100 /min Wiliam Carter Work Phone: [employer] [facility] Work Phone: 08-31-2020 10:59-0400 SaO2% (BldA) [Mass fraction] 96 % Wiliam Carter Work Phone: [facility] Work Phone: 08-31-2020 10:59-0400 Systolic blood pressure 112 mm[Hg] Wiliam Carter Work Phone: [facility] Work Phone: 02-26-2020 12:00-0500 Body Temperature 97.9 [degF] [facility]-26-2020 12:00-0500 BP Diastolic 69 mm[Hg] [facility] 02-26-2020 12:00-0500 BP Systolic 114 mm[Hg] [facility] 02-26-2020 12:00-0500 Pulse (Heart Rate) 93 /min [facility] 02-26-2020 12:00-0500 Pulse Oximetry 96 % [facility] 02-26-2020 12:00-0500 Respiratory Rate 17 /min [facility] 02-25-2020 09:45-0500 BMI (Body Mass Index) 24.96 kg/m2 [facility] 02-25-2020 09:45-0500 Body weight 61.9 kg [facility] 02-25-2020 09:45-0500 Height 157.5 cm [facility] 2020 09:31-0500 Pulse (Heart Rate) 105 /min Evelyn Heard [facility] 2020 09:31-0500 Pulse Oximetry 100 % Evelyn Heard [facility] 2020 09:31-0500 Respiratory Rate 18 /min Evelyn Heard [facility] 2020 09:14-0500 BP Diastolic 76 mm[Hg] Evelyn Heard [facility] 2020 09:14-0500 BP Systolic 116 mm[Hg] Evelyn Heard [facility] 2020 07:41-0500 BMI (Body Mass Index) 23.08 kg/m2 Evelyn Heard [facility] 2020 07:41-0500 Body Temperature 97.9 [degF] Evelyn Heard [facility] 2020 07:41-0500 Body weight 59.1 kg Evelyn Heard [facility] 2020 07:41-0500 Height 160 cm Evelyn Heard [facility] 11-07-2019 14:55-0400 BMI (Body Mass Index) 25.15 kg/m2 Ashleigh Cummings [facility] 11-07-2019 14:55-0400 Body weight 64.41 kg Ashleigh Cummings [facility] 11-07-2019 14:55-0400 Height 160 cm Ashleigh [facility] Encounters Encounter Date Encounter Type Care Provider Facility Start: 11-03-2022 End: 11-03-2022 Patient encounter status Wiliam Carter MD Work Phone: [facility] Work Phone: Start: 11-03-2022 End: 11-03-2022 Periodic preventive med est patient 40-64yrs Wiliam Carter MD Work Phone: [facility] Procedures Date Procedure Procedure Detail Performing Clinician Start: 10-10-2021 Mammography Wiliam haley MD Work Phone: Start: 02-26-2020 Basic metabolic 2000 panel - Serum or Plasma Jayce Ceballos Work Phone: Start: 02-26-2020 Complete blood count (hemogram) panel - Blood by Automated count Jayce Ceballos Work Phone: Start: 02-25-2020 Glucose [Mass/volume ] in Blood Gil Carter Work Phone: Start: 02-25-2020 Complete blood count with white cell differential, automated Jayce Ceballos Work Phone: Start: 02-25-2020 Complete blood count with white cell differential, manual Jayce Ceballos Work Phone: Start: 02-25-2020 Radiography of [id number] Jayce Ceballos Work Phone: Start: 02-25-2020 Calcium.ionized [Mass/volume] in Serum or Plasma Jayce Ceballos Work Phone: Start: 02-25-2020 Radiologic exam ches t single view Jayce Ceballos Work Phone: Start: 02-25-2020 COVID-19/INFLUENZA A ,B MOLECULAR Elaine Anderson Work Phone: Start: 02-25-2020 Comprehensive metabo lic 2000 panel - Serum or Plasma Jayce Ceballos Work Phone: Start: 02-25-2020 Magnesium [Mass/volu me] in Serum or Plasma Jayce Ceballos Work Phone: Start: 02-25-2020 Phosphate [Mass/volu me] in Serum or Plasma Jayce Ceballos Work Phone: Start: 12-29-2019 Injection therapeuti c carpal tunnel Ashleigh Anne Emiliano Work Phone: Decompression of med shane nerve Wiliam Carter Work Phone: Finger operation Wiliam nagy Work Phone: Kidney biopsy Wiliam larsen Work Phone: Plan of Treatment Date Care Activity Detail Author Start: 10-14-2024 Screening for malign ant neoplasm of colon [facility] Start: 12-05-[address] [facility] Start: 10-10-2022 Screening for malign ant neoplasm of breast Mammogram [facility] Start: 09-14-2020 NURSEVST, Provider: [facility] DEVANL[facility] RN 1,[id number], Status: Pen, Time: 11:00 AM NURSEVST, Provider: [facility] DEVANL1 RN 1,[id number], Status: Pen, Time: 11:00 AM [facility] Work Phone: Start: 03-09-2020 End: 03-09-2020 Follow-Up 03/09/2020 Follow-Up Sports Medicine Evelyn Heard MD [address] [place] [address] [phone] [facility] Start: 2020 End: 2020 Hospital Encounter [facility] Periop Immunizations Immunization Date Immunization Notes Care Provider Jeet toledo 02-08-2014 influenza virus vaccine, whole virus Wiliam Gallowaychava Work Phone: [facility] Work Phone: 02-08-2014 influenza virus vaccine, unspecified formulation Wiliam Carter MD Work Phone: [facility] Work Phone: 01-31-2013 influenza virus vaccine, whole virus Wiliam Carter Work Phone: [facility] Work Phone: 01-17-2009 influenza virus vaccine, whole virus Wiliam T Emma Work Phone: [facility] Work Phone: 03-13-2008 influenza virus vaccine, whole virus Wiliam T Emma Work Phone: [facility] Work Phone: 02-05-2007 influenza virus vaccine, whole virus Wiliam T Emma Work Phone: [facility] Work Phone: Payers Date Payer Category Payer Unknown 2011 Unknown BHARATHI BRANDON/PREF/O/PPO [id number] 2011-Present [id number] 2011 Unknown BHARATHI BRANDON/PREF/O/PPO [id number] 2011-Present [id number] 2011 Unknown [id number] 1969 Unknown [id number] [id number] 1969 Unknown [id number] [id number] 1969 Unknown [id number] [id number] 1969 Unknown [id number] [id number] 1969 Unknown [id number] [id number] 1969 Unknown [id number] [id number] 1969 Unknown [id number] [id number] 1969 Unknown [id number] 2.840.1.747311.3.579.2.900 1969 Unknown [id number] [id number] 1969 Unknown [id number] 2.16.840.1.966567.3.579.2.90 1969 Unknown [id number] 2.16.840.1.470982.3.579.2.903 1969 Unknown [id number] 2.840.1.437207.3.579.2.903 1969 Unknown [id number] 2.16.840.1.747403.3.579.2.903 1969 Unknown [id number] 2.16.840.1.576032.3.579.2.90 1969 Unknown [id number] [id number] 1969 Unknown [id number] 2.16.840.1.948552.3.579.2.903 1969 Unknown [id number] 2.16.840.1.687056.3.579.2.356 1969 Unknown [id number] [id number] 1969 Unknown [id number] 4 Social History Date Type Detail Facility Start: 11-07-2019 End: 10-02-2022 Tobacco smoking status NHIS Never smoker [facility] Start: 11-07-2019 End: 11-03-2022 Alcohol intake Current drinker of alcohol (finding) [facility] Start: 1970 Sex Assigned At Not on file [facility] Start: 09-22-2022 End: 11-03-2022 Exposure to SARS-CoV-2 (event) Not sure [facility] Start: 12-08-2019 End: 10-02-2022 Tobacco use and exposure Never used [facility] Start: 10-02-2022 End: 11-03-2022 Non-smoker Non-smoker [facility] Work Phone: Start: 10-02-2022 Alcohol intake Lifetime non-d judith (finding) [facility] Work Phone: Start: 10-02-2022 End: 11-03-2022 Tobacco use panel [facility] Work Phone: Start: 11-03-2022 Alcohol Comment 2 x per month [facility] Work Phone: History of Present illness Narrative 11-03-2022 Wiliam Carter MD - 11/03/2022 2:00 PM EDT Note Date & Type Note Facility 11-03-2022 History of Present illness Narrative Subjective Patient ID: Ana Campos is a 52 y.o. female who presents for Wellness. HPI The stye got better with the doxycycline and the prednisone. But then she broke out with a papular pustular rash below both eyes. Not consistent with the previous lupus flare. Likely dermatitis, will decrease the dose of the Doxy to 50 twice a day but do it for 2 weeks. She is going to increase the prednisone to 10 or 20 mg in a short time to try to get control of the lupus also. If things do not improve she will call consider dermatology. 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 Mammogram okay 2021, every other year. Cologuard negative, 2021. Basic labs through rheumatology okay. Review of Systems Constitutional: Negative for fatigue. Eyes: Negative for visual disturbance. Respiratory: Negative for cough, chest tightness and shortness of breath. Cardiovascular: Negative for chest pain and palpitations. Gastrointestinal: Negative for abdominal pain, constipation and diarrhea. Musculoskeletal: Positive for arthralgias and myalgias. Skin: Positive for rash. Neurological: Negative for headaches. Objective BP 112/64 Pulse 74 Ht 1.613 m (5' 3.5 ) Wt 63.7 kg (140 lb 6.4 oz) SpO2 99% BMI 24.48 kg/m Physical Exam Constitutional: Appearance: Normal appearance. HENT: Head: Normocephalic and atraumatic. Cardiovascular: Rate and Rhythm: Normal rate and regular rhythm. Heart sounds: Normal heart sounds. Pulmonary: Effort: Pulmonary effort is normal. Breath sounds: Normal breath sounds. Skin: General: Skin is warm and dry. Neurological: General: No focal deficit present. Mental Status: She is alert and oriented to person, place, and time. Gait: Gait normal. Psychiatric: Mood and Affect: Mood normal. Behavior: Behavior normal. Thought Content: Thought content normal. Judgment: Judgment normal. Assessment/Plan Problem List Items Addressed This Visit None Visit Diagnoses Routine general medical examination at a health care facility - Primary Relevant Medications doxycycline (Vibra-Tabs) 50 mg tablet predniSONE (Deltasone) 10 mg tablet documented in this encounter [facility] Work Phone: History of Present illness Narrative 10-02-2022 Wiliam Carter MD - 10/02/2022 11:20 AM EDT Note Date & Type Note Facility 10-02-2022 History of Present illness Narrative Subjective Patient ID: Ana Campos is a 52 y.o. female who presents for Blepharitis (LT x5days). HPI Significantly irritated stye left upper eyelid. Doxycycline for 1 week Prednisone to help as a taper for her lupus rash on her face. 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 She will call if she needs a referral. Review of Systems Skin: Positive for rash. Objective BP 112/64 Pulse 77 Ht 1.613 m (5' 3.5 ) Wt 63.3 kg (139 lb 9.6 oz) SpO2 97% BMI 24.34 kg/m Physical Exam Constitutional: Appearance: Normal appearance. HENT: Head: Normocephalic and atraumatic. Skin: General: Skin is warm and dry. Neurological: General: No focal deficit present. Mental Status: She is alert and oriented to person, place, and time. Gait: Gait normal. Psychiatric: Mood and Affect: Mood normal. Behavior: Behavior normal. Thought Content: Thought content normal. Judgment: Judgment normal. Assessment/Plan Problem List Items Addressed This Visit None Visit Diagnoses Hordeolum externum of left upper eyelid - Primary Relevant Medications doxycycline (Vibra-Tabs) 100 mg tablet predniSONE (Deltasone) 5 mg tablet documented in this encounter [facility] Work Phone: History of Present illness Narrative 01-03-2022 Note Date & Type Note Facility 01-03-2022 History of Present illness Narrative Patient presents with a c/o sore throat, fever and chills that started 2 days ago. She has been treating her symptoms at home with Acetaminophen. She states that she has not been exposed to any illness, does not have regular exposure to the public at work. She has not received treatment or testing at any other site. Denies CP & SOB. No GI/ symptoms. Lungs clear throughout. Oropharynx erythematous without inflammation or exudate. The patient states her pain is increased when swallowing. She has a history of Lupus and is on daily steroid therapy. She does not feel COVID & Influenza testing are necessary at this time.Takes daily prednisone we will not use a taper dose at this time.Does not look ill but nontoxic.With immunosuppression, recommend an antibiotic.Call if she is not getting any better next 2 to 3 days [facility] Work Phone: History of Present illness Narrative 05-07-2019 Note Date & Type Note Facility 05-07-2019 History of Present illness Narrative wellnessRenal, RHeum are following her. starting new biologic for SLE/RA.FOBT given todayMMG ok 05/2019. MMg order done today [facility] [facility] Work Phone: Evaluation note Note Date & Type Note Facility documented in this encounter [facility] Work Phone: Evaluation note Note Date & Type Note Facility documented in this encounter [facility] Work Phone: History of Present illness Narrative Note Date & Type Note Facility History of Present illness Narrative wellnessMMGcologuardRecommend flu shot and COVID booster in the fall. But she would want to confirm that with rheumatology is ok. [facility] [facility] Work Phone: Summary Purpose Family History Unknown Family Member Name Dates Details No pertinent family history: Mother, Father(V49.89, Z78.9) Status:Active Unknown Family Member Name Dates Details No pertinent family history: Mother, Father(V49.89, Z78.9) Status:Active Unknown Family Member Name Dates Details No pertinent family history: Mother, Father(V49.89, Z78.9) Status:Active Unknown Family Member Name Dates Details No pertinent family history: Mother, Father(V49.89, Z78.9) Status:Active Unknown Family Member Name Dates Details No pertinent family history: Mother, Father(V49.89, Z78.9) Status:Active Advance Directives Documents on File Type Date Recorded Patient Circuit Manager Expl anation Advance Directives and Living Will Documents on File Type Date Recorded Patient Circuit Manager Expl anation Advance Directives and Living Will Documents on File Type Date Recorded Patient Circuit Manager Expl anation Advance Directives and Livin g Will 01/27/2020 9:11 AM Documents on File Type Date Recorded Patient Circuit Manager Expl anation Advance Directives and Livin g Will 2020 9:11 AM Latest Code Status on File Code Status Date Activated Date Inactivated Comments Full Code 02/25/2020 9:27 AM 02/26/2020 4:33 PM Documents on File Type Date Recorded Patient Circuit Manager Expl anation Advance Directives and Livin g Will 2020 9:11 AM Latest Code Status on File Code Status Date Activated Date Inactivated Comments Full Code 02/25/2020 9:27 AM 02/26/2020 4:33 PM Reason for Referral Status Reason Specialty Diagnoses / Procedures Referred By Contact Referred To Contact Authorized Neurology Diagnoses Bilateral carpal tunnel syndrome Procedures Nerve conduction test Ashleigh Cummings CNP [address] [place] [address] Danica Dominguez MD [address] [place] [address] Status Reason Specialty Diagnoses / Procedures Referred By Contact Referred To Contact Authorized Neurology Diagnoses Bilateral carpal tunnel syndrome Procedures EMG: Ashleigh Cummings CNP [address] [place] [address] Danica Dominguez MD [address] [place] [address] History of Present Illness * Ashleigh Cummings CNP - 11/07/2019 9:44 PM EDT [facility] [address] [facility] [address] [facility] [id number] No chief complaint on file. Ana Campos 49 year old female presents to the office for bilateral hand and finger numbness and tingling. She has had this for the past couple of months and its not getting any better. 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 She is always on a computer and using both hands for repetitious movements. The numbness and tingling are worse at night. She does wear bilateral wrist splints at night which really aren't helping. She has also beentaking Mobic which she had from a previous RA flare- up. She is very frustrated as this is becoming worse and its starting to affect her work and every day life. The numbness is mainly in her thumbs, index and middle fingers with occasionally traveling to the ring fingers. She denies any numbness ofthe pinky fingers. The patient's past medical history, surgical history, social history, family history, medications and allergies were reviewed with the patient today and are available in the chart for further review. Allergies Allergen Reactions Azithromycin Bee Venom Protein (Honey Bee) Penicillins Current Outpatient Medications: meloxicam (Mobic) 7.5 MG tablet, Take 1 (one) tablet (7.5 mg total) by mouth daily ., Disp: 30 tablet, Rfl: 2 methylPREDNISolone (MEDROL DOSEPACK) 4 mg tablet, follow package directions ., Disp: 21 tablet, Rfl: 0 Past Medical History: Diagnosis Date Lupus (HCC) RA (rheumatoid arthritis) ([facility]) Past Surgical History: Procedure Laterality Date HAND SURGERY Right Social History Socioeconomic History Marital status: Spouse name: Not on file Number of children: Not on file Years of education: Not on file Highest education level: Not on file Occupational History Not on file Social Needs Financial resource strain: Not on file Food insecurity Worry: Not on file Inability: Not on file Transportation needs Medical: Not on file Non-medical: Not on file Tobacco Use Smoking status: Never Smoker Smokeless tobacco: Never Used Substance and Sexual Activity Alcohol use: Yes Drug use: Not on file Sexual activity: Not on file Lifestyle Physical activity Days per week: Not on file Minutes per session: Not on file Stress: Not on file Relationships Social connections Talks on phone: Not on file Gets together: Not on file Attends rastafari service: Not on file Active member of club or organization: Not on file Attends meetings of clubs or organizations: Not on file Relationship status: Not on file Other Topics Concern Not on file Social History Narrative Not on file ROS: Review of Systems Constitutional: Negative for activity change and fatigue. HENT: Negative for congestion, hearing loss and trouble swallowing. Eyes: Negative for visual disturbance. Respiratory: Negative for chest tightness and shortness of breath. Cardiovascular: Negative for chest pain and palpitations. Gastrointestinal: Negative for abdominal pain, diarrhea, nausea and vomiting. Endocrine: Negative for polydipsia, polyphagia and polyuria. Genitourinary: Negative for decreased urine volume, difficulty urinating and hematuria. Musculoskeletal: Positive for arthralgias. Negative for joint swelling and myalgias. Skin: Negative for color change, rash and wound. Allergic/Immunologic: Negative for immunocompromised state. Neurological: Positive for numbness. Negative for dizziness, weakness and light-headedness. Hematological: Does not bruise/bleed easily. Psychiatric/Behavioral: Negative for confusion and sleep disturbance. The patient is not nervous/anxious. PE: Physical Exam Constitutional: She is oriented to person, place, and time. She appears well- developed and well-nourished. HENT: Head: Normocephalic. Eyes: Pupils are equal, round, and reactive to light. Neck: Normal range of motion. Neck supple. Cardiovascular: Normal rate and regular rhythm. Pulmonary/Chest: Effort normal and breath sounds normal. Abdominal: Soft. Bowel sounds are normal. Musculoskeletal: Normal range of motion. General: Tenderness present. Right wrist: She exhibits tenderness. Left wrist: She exhibits tenderness. Right hand: Decreased sensation noted. Decreased sensation is present in the medial distribution. Left hand: Decreased sensation noted. Decreased sensation is present in the medial distribution. Neurological: She is alert and oriented to person, place, and time. Skin: Skin is warm and dry. ORTHO: Right Hand Exam Tenderness The patient is experiencing tenderness in the palmar area. Range of Motion The patient has normal right wrist ROM. Muscle Strength The patient has normal right wrist strength. Tests Phalen s sign: positive Other Erythema: absent Scars: absent Sensation: decreased Pulse: present Left Hand Exam Tenderness The patient is experiencing tenderness in the palmar area. Range of Motion The patient has normal left wrist ROM. Muscle Strength The patient has normal left wrist strength. Tests Phalen s sign: positive Other Erythema: absent Scars: absent Sensation: decreased Pulse: present Imaging: B/L Wrist No acute fracture or dislocation. No osseous abnormality Assessment/Plan: After examination and reviewing of patient x-ray imaging, I am going to order B/L upper extremity EMGs for carpal tunnel syndrome. The patient is to continue with the bracing and also with the meloxicam, if it helps, with inflammation. If she doesn't have any relief with the meloxicam, she is to try OTC NSAIDs and tylenol. I also offered her a short course of steroids for the inflammation. I will see her back after her EMGs for the results. The patient verbalizes understanding and is in agreement with the treatment plan. documented in this encounter* Edilia Gómez LPN - 12/19/2019 3:59 PM EDT LVM for patient to call our office. Ashleigh DYER CNP has reviewed her EMG . She can try thecortisone injections or have surgery . documented in this encounter* Devorah Lundberg LPN - 12/23/2019 1:52 PM EDT Patient phoned in left a message wanting to know the difference between getting a shot or having surgery for carpal tunnel. Left patient a message stating that the shots can help keep her comfortable until/if she is ever ready to have surgery to correct the issue. Will await direction from the patient. documented in this encounter* Ashleigh Cummings CNP - 12/29/2019 1:13 PM EDT Associated Order(s): Carpal Tunnel Injection: Carpal Tunnel Post-Procedure Diagnose(s): Carpal tunnel syndrome of right wrist Carpal Tunnel Injection: Carpal Tunnel Performed by: Ashleigh Cummings CNP Authorized by: Ashleigh Cummings CNP Consent given by: Patient Time out: Immediately prior to the procedure a time out was called Physician or proceduralist has discussed critical or nonroutine steps, procedure duration and anticipated blood loss: Yes Indications: Diagnostic evaluation and pain Location: Wrist Laterality: Right Site: Carpal Tunnel Prep: patient was prepped and draped in usual sterile fashion Needle size: 25 G Medications: 20 mg triamcinolone acetonide 10 mg/mL Anesthetic used: Lidocaine 1% Anesthetic amount (mL): 1 Patient tolerance: Patient tolerated the procedure well with no immediate complications * Ashleigh Cummings CNP - 12/29/2019 1:13 PM EDT [facility] [address] [facility] [address] [facility] [id number] Chief Complaint Patient presents with Right Wrist - Pain, Follow-up Ana Campos returns to the office today for an injection to her right wrist and for surgery questions. Overall, the carpal tunnel symptoms are about the same. She is scheduled to have the left wrist done first and she would like to try an injection to the right wrist for some relief until she can have that one surgically fixed. The patient's past medical history, surgical history, social history, family history, medications and allergies were reviewed with the patient today and are available in the chart for further review. Allergies Allergen Reactions Azithromycin Bee Venom Protein (Honey Bee) Penicillins Current Outpatient Medications: meloxicam (Mobic) 7.5 MG tablet, Take 1 (one) tablet (7.5 mg total) by mouth daily ., Disp: 30 tablet, Rfl: 2 Past Medical History: Diagnosis Date Lupus (HCC) RA (rheumatoid arthritis) ([facility]) Past Surgical History: Procedure Laterality Date HAND SURGERY Right Social History Socioeconomic History Marital status: Spouse name: Not on file Number of children: Not on file Years of education: Not on file Highest education level: Not on file Occupational History Not on file Social Needs Financial resource strain: Not on file Food insecurity Worry: Not on file Inability: Not on file Transportation needs Medical: Not on file Non-medical: Not on file Tobacco Use Smoking status: Never Smoker Smokeless tobacco: Never Used Substance and Sexual Activity Alcohol use: Yes Drug use: Not on file Sexual activity: Not on file Lifestyle Physical activity Days per week: Not on file Minutes per session: Not on file Stress: Not on file Relationships Social connections Talks on phone: Not on file Gets together: Not on file Attends rastafari service: Not on file Active member of club or organization: Not on file Attends meetings of clubs or organizations: Not on file Relationship status: Not on file Other Topics Concern Not on file Social History Narrative Not on file ROS: Review of Systems Musculoskeletal: Positive for arthralgias. Neurological: Positive for weakness and numbness. PE: Physical Exam Constitutional: She is oriented to person, place, and time. She appears well- developed and well-nourished. HENT: Head: Normocephalic. Eyes: Pupils are equal, round, and reactive to light. Neck: Normal range of motion. Neck supple. Cardiovascular: Normal rate and regular rhythm. Pulmonary/Chest: Effort normal and breath sounds normal. Abdominal: Soft. Bowel sounds are normal. Musculoskeletal: Normal range of motion. General: Tenderness present. Neurological: She is alert and oriented to person, place, and time. Skin: Skin is warm and dry. Imaging: No new imaging, reviewed from prior visit. Procedure: EMG B/L Upper Extremity This is an abnormal EMG. 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 There is NO electrodiagnostic evidence of bilateral cervical radiculopathy, brachial plexopathy orulnar neuropathy. Assessment/Plan: After exam and discussion, I injected the right wrist for the carpal tunnel. I didthis without complications and she tolerated this well. We discussed the carpal tunnel surgery in great detail and also reviewed the EMG results in more detail. The patient will call if any further questions arise. I will be happy to see her as needed. documented in this encounter* Evelyn Heard MD - 02/10/2020 6:25 PM EST Dictation on: 02/10/2020 6:27 PM by: EVELYN HEARD [[email or web address]] documented in this encounter* Gil Carter Jr., DO - 02/26/2020 10:47 AM EST Pulmonary and Critical Care Daily Progress Note Impression and Recommendations Ana Campos is a 50 y.o. female 1. Acute respiratory failure with hypoxia 2. Upper airway compromise secondary to angioedema 3. Other medical problems as outlined Continue ventilatory support, sedation, H1 and H2 kellie, systemic steroids, ulcer prophylaxis. Proceed with extubation. Depending upon the patient's clinical and respiratory status, perhaps she can be released from the hospital later today. Complex decisions required for evaluation management, reviewed during critical care rounds. DVT Prophylaxis: Lovenox Code status: Goals of care reviewed. Jones Carter [phone] Reason for visit/Chief complaint: Acute respiratory failure with hypoxia Subjective/Review of Systems: No acute overnight events reported. The patient is awake alert communicative questioning extubation Review of systems: [] All other systems were reviewed and negative except for those as specified in history of presentillness. [x] Unable to obtain history or review of systems secondary to clinical circumstances Physical Exam Temp: [98.3 F (36.8 C)-99.1 F (37.3 C)] 98.4 F (36.9 C) Heart Rate: [92-124] 109 Resp: [10-19] 17 BP: (118-151)/(71-89) 140/80 FiO2 (%): 30 Intake/Output Summary (Last 24 hours) at 02/26/2020 1047 Last data filed at 02/26/2020 0934 Gross per 24 hour Intake 514 ml Output 1875 ml Net -1361 ml GENERAL: Alert, oriented and in no acute distress, follows all commands, orally intubated. HEENT: EYES: Pupils equal, round and reactive, extraocular muscles intact. NOSE: membranes clear, no polyps. EARS: Hearing grossly intact. MOUTH: Oral endotracheal tube NECK: is supple, no thyromegaly. No stridor. HEART: regular rate and rhythm. No murmurs, rubs or gallops. LUNGS: Clear to auscultation bilaterally. No wheezing, rhonchi or rales. ABDOMEN: Positive bowel sounds, soft, nontender, non-distended. EXTREMITIES: No cyanosis, clubbing or edema in all 4 extremities. Peripheral pulses intact. NEURO: non-focal, grossly intact. SKIN: grossly free of rash Medications Scheduled Meds: enoxaparin (LOVENOX) injection 40 mg Subcutaneous Daily hydrOXYchloroQUINE 400 mg Oral BID predniSONE 30 mg Oral Daily with breakfast senna-docusate 1 tablet Oral BID sodium chloride (PF) 5 mL Intravenous Q8H JHONNY Continuous Infusions: sodium chloride 0.9 % PRN Meds:.diphenhydrAMINE, meloxicam, nalOXone AND Notify physician AND naloxone, Saline lock IV AND sodium chloride (PF) AND sodium chloride (PF) AND sodium chloride 0.9 % Labs and Imaging Laboratory Data: [x] Pertinent lab data reviewed Radiology: [x] Images personally reviewed Microbiology: [x] Pertinent microbiology data reviewed Lab Results Component Value Date WBC 7.54 02/26/2020 HGB 10.7 (L) 02/26/2020 HCT 31.9 (L) 02/26/2020 MCV 96.7 02/26/2020 Lab Results Component Value Date BUN 19 02/26/2020 GLUCOSE 160 (H) 02/26/2020 * Elaine Anderson, SENIOR SYSTEMS DEVELOPER - 02/26/2020 8:07 AM EST Progress Note Patient Name:Ana Campos :1970 Admit Date: [id number] Perpetual Assessment: Ana Campos is a 50 y.o. female with a past medical history of rheumatoidarthritis and Lupus who presented from [facility] on 02/25/2020 with tongue swelling. Pt had right carpal tunnel release surgery on 02/23 under local (lidocaine) anesthesia. Post op had complaints of tongue swelling, pain, and burning with difficulty handling secretions. Pt was intubated for airway protection 02/25/20. After receiving steroids, epi, benadryl and pepcid, she was transferred to [facility] for ongoing management of angioedema Assessment and Plan: Angioedema - Unclear etiology- lidocaine, meloxicam - Pt with tongue pain, swelling, and difficulty with secretions - received epi, pepcid, methylprednisone, and benadryl at [facility] - stop decadron and change back to home prednisone. Change benadryl to prn - discharge home later this afternoon if remains asymptomatic Acute Respiratory Failure - secondary to angioedema. Intubated for airway protection - Intubated 02/24. Vent day #2 - off sedation - passed SBT. Extubate today Carpel Tunnel - s/p Right Carpel Tunnel release surgery 02/[address] Heard at [place] under local anesthesia - was prescribed cipro post op but never took a dose - keep right wrist dressing intact - pain control with tylenol Rheumatoid Arthritis - Follows with a physician in [place] (family does not recall name) - on prednisone but was recently told she needs to taper but had increasing pain with decreased prednisone dosing per significant other - had flair in knees and ankles Thursday and was placed on meloxicam for pain - resume prednisone Lupus - by history on plaquenil - continue plaquenil Critical Care Review: DVT: Lovenox SQ GI: Pepcid Vent: Peridex and HOB >30 Bowel Regimen: Senna Antibiotics: None Lines: PIVs Tubes/Drains: None Villarreal Indication: remove villarreal 02/25 Endo: Glucose controlled, <180 Diet: regular diet RASS goal: -1 to +1 Delirium: CAM-ICU negative (no delirium) Mobility goal: PT/OT consult Restraints: N/A Dispo: discharge vs transfer Code Status: Full Code Plan discussed with Dr. Raul Anderson MSN, ACNP Critical Care Nurse Practitioner Subjective and Review of Systems: Feels better this am. States she has no pain in tongue and that swelling is gone. [x] All other systems were reviewed and negative except for those as specified in History of Present illness. [] Unable to obtain history or ROS secondary to clinical circumstances Allergies and Medications: Allergies: Allergies Allergen Reactions Azithromycin Bactrim [Sulfamethoxazole-Trimethoprim] Itching Tongue and throat itched Bee Venom Protein (Honey Bee) Penicillins Current meds: chlorhexidine 15 mL Swab BID dexamethasone (DECADRON) inj 4 mg Intravenous Q6H JHONNY diphenhydrAMINE 25 mg Oral Daily enoxaparin (LOVENOX) injection 40 mg Subcutaneous Daily famotidine 20 mg Oral BID hydrOXYchloroQUINE 400 mg Oral BID senna-docusate 1 tablet Oral BID sodium chloride (PF) 5 mL Intravenous Q8H JHONNY Additional Data: Laboratory Data: [x] Pertinent data reviewed Radiology: [x] Pertinent data reviewed Microbiology: [] Pertinent data reviewed Outside Records: [x] Pertinent data reviewed No results for input(s): PHART, AGH8JDN, PO2ART, R2SJGLSW, RESPRATE, TIDALVOL, PEEP, [id number] in the last 72 hours. Recent Labs 02/25/20 1124 02/26/20 0357 WBC 3.41* 7.54 HGB 11.1* 10.7* PLT 333 372 Recent Labs 02/25/20 0954 02/25/20 1021 02/26/20 0357 NA 133* -- 134* K 4.5 -- 4.6 CL 103 -- 106 BICARB 19* -- 23 BUN 11 -- 19 CREATININE 0.48 -- 0.42 GLUCOSE 143* -- 160* PHOS 3.6 -- -- MG 1.8 -- -- ZAC -- 4.8 -- CALCIUM 7.6* -- 8.5 BILITOT 0.2 -- -- ALKPHOS 41 -- -- ALT 62* -- -- AST 56* -- -- PROT 5.8* -- -- ALBUMIN 3.1* -- -- No results for input(s): INR, PTT in the last 72 hours. Physical Exam: Vital Signs: Temp: [98.3 F (36.8 C)-99.6 F (37.6 C)] 98.4 F (36.9 C) Heart Rate: [92-124] 96 Resp: [10-19] 14 BP: (118-151)/(71-95) 129/80 FiO2 (%): 30 Intake/Output Summary (Last 24 hours) at 02/26/2020 0807 Last data filed at 02/26/2020 0600 Gross per 24 hour Intake 514 ml Output 1725 ml Net -1211 ml CONSTITUTIONAL: In no distress HEENT: PERRL. Nose membranes clear, no polyps. Hearing intact. Mouth moist and pink with no exudates. NECK: Supple. Trachea midline. No stridor. CV: regular rate and rhythm, no murmurs, rubs, or gallops noted, No edema RESP: CTA to auscultation bilaterally. No wheezing, rhonchi or rales. No increase in respiratory effort or use of accessory muscles. GI: soft, nontender, nondistended, bowel sounds present MUSCULOSKELETAL: No cyanosis or clubbing in all 4 extremities. Normal ROM without deformity. Right wrist incision c/d/i. Sutures intact. Incision well approximated with ecchymosis distal to incision PSYCH: Alert, oriented x3. Normal affect NEURO: Non-focal, grossly intact. Follows commands SKIN: Warm and dry. Grossly free of rash. documented in this encounter* Evelyn Heard MD - 03/10/2020 4:52 PM EST Dictation on: 03/10/2020 4:54 PM by: EVELYN HEARD [[id number]] documented in this encounter* Danica Dominguez MD - 12/08/2019 9:[address] [facility] - Neurology [address] [place] [address] [phone] Nerve Conduction & EMG Report Patient: Ana Campos Sex: Male Date of : 1970 Visit Date: 12/08/2019 08:35 Age: 49 Years Examining MD: Danica Dominguez MD Referred by: CRISTOPHER Bellock Temperature: 32.1 .Current Height: 5 feet 3 inch Referred for: BUE numbness for 6 months. No DM. Occ neck pain. Plan: The study is design to evaluate for radiculopathy, plexopathy, entrapment neuropathy, median or ulnar neuropathy. Indication, risk, side effects, and alternatives were explained. Patient agreedto proceed. Patient was instructed to clean the puncture site with soap and water and put some ice pack for bruising. EMG Summary: The bilateral median motor nerve conduction study showed prolonged distal latency, normal amplitude and conduction velocity. The bilateral median sensory nerve conduction study showed prolonged distal latency and decreased amplitude. The right ulnar motor and bilateral ulnar sensory nerve conduction study were normal. The left ulnar motor nerve conduction study showed normal latency and amplitude with reduced conduction velocity across the elbow to 44.4 m/s. Bilateral radial sensory nerve conduction studies were normal. Needle EMG of the muscles tested showed no abnormal spontaneous activity. Normal motor unit action potentials and recruitment patterns were seen. Impression: This is an abnormal EMG. There is electrodiagnostic evidence of a bilateral median nerve entrapment at the wrist with sensory axonal damage on both sides. 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 There is NO electrodiagnostic evidence of bilateral cervical radiculopathy, brachial plexopathy or ulnar neuropathy. Danica Dominguez MD Diplomate, ABPN, NBPAS Clinical Neurophysiology, Neurology, Vascular Neurology and Sleep Medicine [facility] [place] [phone] Nota bene: Portions of this chart was created using avolution voice recognition software. Occasional wrong-word or sound-like substitutions may have occurred due to inherent limitations of the voice recognition software. Please read the chart carefully and recognize, using context, where the substitutions have occurred. Motor NCS Nerve / Sites Muscle Latency Amplitude Distance Velocity ms mV cm m/s R Median - APB Wrist APB 6.44 5.7 7 Elbow APB 10.83 5.8 22 50.0 L Median - APB Wrist APB 7.48 8.7 7 Elbow APB 11.75 8.7 22 51.5 R Ulnar - . Wrist ADM 2.85 12.2 6.5 B.Elbow ADM 6.42 11.7 21 58.9 A.Elbow ADM 8.08 11.3 10 60.0 L Ulnar - . Wrist ADM 2.98 10.5 6.5 B.Elbow ADM 6.31 9.3 21 63.0 A.Elbow ADM 8.79 8.9 11 44.4 Sensory NCS Nerve / Sites Rec. Site Peak Lat Amp.1 Amp.2 Distance Carlos. d Lat.2 ms V V cm m/s ms R Radial - . Forearm Snuff 2.38 34.4 44.2 10 54.5 L Radial - . Forearm Snuff 2.35 56.3 25.4 10 57.1 R Median, Ulnar - PALMAR Median Palm Wrist 3.85 7.4 18.7 8 24.5 Ulnar Palm Wrist 2.06 22.9 11.4 8 53.3 1.79 L Median, Ulnar - PALMAR Median Palm Wrist 4.15 4.8 8.5 8 25.1 Ulnar Palm Wrist 1.83 41.1 7.5 8 64.0 2.31 EMG Summary Table Spontaneous Activity Amplitude Duration Recruitment Activation Polyphasia Comment Muscle Nerve Roots Ins Act Fib PSW Fasc - - - - - - L. Deltoid Axillary C5-C6 Normal 0 0 0 Normal Normal Normal Normal Normal Normal L. Triceps brachii Radial C6-C8 Normal 0 0 0 Normal Normal Normal Normal Normal Normal L. Biceps brachii Musculocutaneous C5-C6 Normal 0 0 0 Normal Normal Normal Normal Normal Normal L. Pronator teres Median C6-C7 Normal 0 0 0 Normal Normal Normal Normal Normal Normal L. Extensor digitorum communis Radial C7-C8 Normal 0 0 0 Normal Normal Normal Normal Normal Normal L. Flexor carpi ulnaris Ulnar C7-T1 Normal 0 0 0 Normal Normal Normal Normal Normal Normal L. Flexor digitorum profundus, dig 4 & 5 Ulnar C8-T1 Normal 0 0 0 Normal Normal Normal Normal Normal Normal L. Abductor digiti minimi (manus) Ulnar C8-T1 Normal 0 0 0 Normal Normal Normal Normal Normal Normal L. First dorsal interosseous Ulnar C8-T1 Normal 0 0 0 Normal Normal Normal Normal Normal Normal L. Abductor pollicis brevis Median C8-T1 Normal 0 0 0 Normal Normal Normal Normal Normal Normal L. Cervical paraspinals Spinal C4-C8 Normal 0 0 0 Normal Normal Normal Normal Normal Normal R. Deltoid Axillary C5-C6 Normal 0 0 0 Normal Normal Normal Normal Normal Normal R. Triceps brachii Radial C6-C8 Normal 0 0 0 Normal Normal Normal Normal Normal Normal R. Biceps brachii Musculocutaneous C5-C6 Normal 0 0 0 Normal Normal Normal Normal Normal Normal R. Pronator teres Median C6-C7 Normal 0 0 0 Normal Normal Normal Normal Normal Normal R. Extensor digitorum communis Radial C7-C8 Normal 0 0 0 Normal Normal Normal Normal Normal Normal R. Flexor carpi ulnaris Ulnar C7-T1 Normal 0 0 0 Normal Normal Normal Normal Normal Normal R. Flexor digitorum profundus, dig 4 & 5 Ulnar C8-T1 Normal 0 0 0 Normal Normal Normal Normal Normal Normal R. Abductor digiti minimi (manus) Ulnar C8-T1 Normal 0 0 0 Normal Normal Normal Normal Normal Normal R. First dorsal interosseous Ulnar C8-T1 Normal 0 0 0 Normal Normal Normal Normal Normal Normal R. Abductor pollicis brevis Median C8-T1 Normal 0 0 0 Normal Normal Normal Normal Normal Normal R. Cervical paraspinals Spinal C4-C8 Normal 0 0 0 Normal Normal Normal Normal Normal Normal documented in this encounter Assessments Diagnosis Bilateral carpal tunnel syndrome Carpal tunnel syndrome Diagnosis Carpal tunnel syndrome of left wrist- Primary Carpal tunnel syndrome of right wrist- Primary Carpal tunnel syndrome of left wrist Carpal tunnel syndrome of right wrist Diagnosis Carpal tunnel syndrome of right wrist- Primary S/P carpal tunnel release- Primary Other postprocedural status Carpal tunnel syndrome of right wrist Diagnosis Carpal tunnel syndrome of right wrist- Primary Diagnosis Respiratory failure (HCC)- Primary Acute respiratory failure Diagnosis S/P carpal tunnel release- Primary Other postprocedural status Diagnosis Ulnar neuropathy at elbow, left- Primary Bilateral carpal tunnel syndrome Carpal tunnel syndrome Discharge Instructions * Instructions* Aniya Figueroa RN - 2020 Carpal Tunnel Release: What to Expect at Home Your Recovery Carpal tunnel reduces the pressure on a nerve in the wrist. Your doctor cut a ligament that presseson the nerve. This lets the nerve pass freely through the tunnel without being squeezed. Your hand will hurt and may feel weak with some numbness. This usually goes away in a few days, butit may take several months. Your doctor may remove the large bandage, or he or she will tell you when and how to remove it yourself. In some cases, you may have a splint. If you have one, you will wear it for about 2 weeks. Your doctor will take out your stitches in 1 to 2 weeks. Your hand and wrist may feel worse than they used to feel. But the pain should start to go away. It usually takes 3 to 4 months to recover andup to 1 year before hand strength returns. How much strength returns will vary. The timing of your return to work depends on the type of surgery you had, whether the surgery was on your dominant hand (the hand you use most), and your work activities. If you had open surgery on your dominant hand and you do repeated actions at work, you may be able to go back to work in 6 to 8 weeks. Repeated motions include typing or assembly-line work. If the surgery was on the other hand and you don't do repeated actions at work, you may be able to return to work in 7 to 14 days. If you had endoscopic surgery, you may be able to go back to work sooner than with open surgery. This care sheet gives you a general idea about how long it will take for you to recover. But each person recovers at a different pace. Follow the steps below to get better as quickly as possible. How can you care for yourself at home? Activity Rest when you feel tired. Getting enough sleep will help you recover. Try to walk each day. Start by walking a little more than you did the day before. Bit by bit, increase the amount you walk. For up to 2 weeks after surgery, avoid lifting things heavier than 1 to 2 pounds and using your hand. This includes doing repeated arm or hand movements, such as typing or using a computer mouse, washing windows, vacuuming, or chopping food. Do not use power tools, and avoid activities that cause vibration. You may do heavier tasks about 4 weeks after surgery. These include vacuuming, mowing the lawn, andgardening. You may shower 24 to 48 hours after surgery, if your doctor okays it. Keep your bandage dry by taping a sheet of plastic to cover it. If you have a splint, keep it dry. Your doctor will tell you if you can remove it when you shower. Be careful not to put the splint on too tight. Do not take a bath until the incision heals, or until your doctor tells you it is okay. You may drive when you are fully able to use your hand. Diet You can eat your normal diet. If your stomach is upset, try bland, low-fat foods like plain rice, broiled chicken, toast, and yogurt. Medicines Your doctor will tell you if and when you can restart your medicines. He or she will also give you instructions about taking any new medicines. If you take aspirin or some other blood thinner, ask your doctor if and when to start taking it again. Make sure that you understand exactly what your doctor wants you to do. Take pain medicines exactly as directed. ? If the doctor gave you a prescription medicine for pain, take it as prescribed. ? If you are not taking a prescription pain medicine, take an wyui-dks-wtzcvdm medicine such as acetaminophen (Tylenol), ibuprofen (Advil, Motrin), or naproxen (Aleve). Read and follow all instructions on the label. ? Do not take two or more pain medicines at the same time unless the doctor told you to. Many pain medicines have acetaminophen, which is Tylenol. Too much acetaminophen (Tylenol) can be harmful. If you think your pain medicine is making you sick to your stomach: ? Take your medicine after meals (unless your doctor has told you not to). ? Ask your doctor for a different pain medicine. If your doctor prescribed antibiotics, take them as directed. Do not stop taking them just because you feel better. You need to take the full course of antibiotics. Incision and splint care Keep your bandage dry. If it gets dirty, you may change it. If you have a splint, talk to your doctor about when you should wear it. Exercise You may need wrist and hand rehabilitation. This is a series of exercises you do after your surgery. This helps you get back your wrist's and hand's range of motion, strength, and obstetrical nurse. You will workwith your doctor and physical or occupational therapist to plan this exercise program. To get the best results, you need to do the exercises correctly and as often and as long as your doctor tells you. Ice and elevation Put ice or a cold pack on your wrist for 10 to 20 minutes at a time. Try to do this every 1 to 2 hours for the next 3 days (when you are awake) or until the swelling goes down. Put a thin cloth between the ice and your skin. Prop up the sore wrist on a pillow when you ice it or anytime you sit or lie down during the next 3days. Try to keep it above the level of your heart. This will help reduce swelling. Other instructions Avoid letting your hand hang down. This can cause swelling. Follow-up care is a castro part of your treatment and safety. Be sure to make and go to all appointments, and call your doctor if you are having problems. It's also a good idea to know your test resultsand keep a list of the medicines you take. When should you call for help? Call 911 anytime you think you may need emergency care. For example, call if: You passed out (lost consciousness). You have chest pain, are short of breath, or cough up blood. Call your doctor now or seek immediate medical care if: You have pain that does not get better after you take pain medicine. Your hand is cool or pale or changes color. Your cast or splint feels too tight. You have tingling, weakness, or numbness in your hand or fingers. You are sick to your stomach or cannot drink fluids. You have loose stitches, or your incision comes open. You have signs of a blood clot in your leg (called a deep vein thrombosis), such as: ? Pain in your calf, back of the knee, thigh, or groin. ? Redness or swelling in your leg. You have signs of infection, such as: ? Increased pain, swelling, warmth, or redness. ? Red streaks leading from the incision. ? Pus draining from the incision. ? A fever. Bright red blood has soaked through the bandage over your incision. Watch closely for any changes in your health, and be sure to contact your doctor if: You have a problem with your cast or splint. You do not get better as expected. Where can you learn more? Log into your personal health record on https://TurtleCellt.Datadog and enter N388 in the Education box to learn more about Carpal Tunnel Release: What to Expect at Home. Current as of: June 06, 2019 Content Version: 12.6 [employer]. Care instructions adapted under license by your healthcare professional. If you have questions about a medical condition or this instruction, always ask your healthcare professional. [employer] disclaims any warranty or liability for your use of this information. GENERAL POST-OPERATIVE PATIENT INSTRUCTIONS ANESTHESIA PRECAUTIONS: A responsible adult must stay with you for at least 24 hours after surgery. You may feel light headed,, dizzy, or nauseated during this time. Do not operate a vehicle (car, bike, motorcycle, resident care coordinator) machinery or power tools. Do not make any important decisions or drink any alcoholic beverages for 24 hours. Children should remain quiet today. No riding of bicycles, motorcycles, skateboards, playing on swings etc. Drink plenty of fluids today. Eat light, small, frequent meals today. Resume regular diet tomorrow. FOLLOW-UP: Please make an appointment with your physician for follow-up. Call your physician immediately if you have any fevers greater than 101, drainage from your wound that is not clear or looks infected, persistent bleeding, increasing abdominal pain, problems urinating, or persistent nausea/vomiting. DIET: You may eat any foods that you can tolerate. It is a good idea to eat a high fiber diet and take in plenty of fluids to prevent constipation. If you do become constipated you may want to take amild laxative or take ducolax tablets on a daily basis until your bowel habits are regular. Constipation can be very uncomfortable, along with straining, after recent surgery. ACTIVITY: You are encouraged to cough and deep breathe or use your incentive spirometer if you weregiven one, every 15-30 minutes when awake. This will help prevent respiratory complications and lowgrade fevers post-operatively if you had a general anesthetic. You are encouraged to walk and engage in light activity for the next two weeks. MEDICATIONS: Try to take narcotic medications and anti-inflammatory medications, such as ibuprofen,naprosyn, etc., with food. This will minimize stomach upset from the medication. Should you developnausea and vomiting from the pain medication, or develop a rash, please discontinue the medication and contact your physician. You should not drive, make important decisions, or operate machinery when taking narcotic pain medication. Do not take tylenol or tylenol products with narcotic medications. QUESTIONS: Please feel free to call your physician or the hospital corner trimmer operator if you have any questions, and they will be glad to assist you. documented in this encounter* Discharge Instr - AVS First Page* Elaine Anderson, SENIOR SYSTEMS DEVELOPER - 02/26/2020 12:32 PM EST CHIEF COMPLAINT: Tongue swelling and Pain with difficulty swallowing MEDICAL PROBLEMS: 1. Angioedema 2. Acute Respiratory Failure 3. Carpel Tunnel Release Surgery 4. Rheumatoid Arthritis 5. Lupus PROCEDURES * No surgery found * No admission procedures for hospital encounter. FOLLOW UP CARE A follow-up appointment may be scheduled for you before you are discharged with any recommended specialists. If not, please contact your specialist as well as your primary care provider's office at your earliest convenience to schedule your follow up appointment. Bring your medications and pill bottles with you to your first visit. If you need assistance with obtaining a primary care physician please call: [phone] AT [facility] Pain is your body's way of warning you that something is wrong. Pain feels different for everybody.Only you can describe your pain. A provider can suggest or prescribe many types of medicines for pain. These range from nonprescription medicines like acetaminophen (Tylenol) to powerful medicines called opiates. Opiates work well to relieve pain, but they also can cause problems, especially if they are taken too often or in too large a dose. They can interact with other medicines, or they may make it hard for you to do your job or to think clearly. They can even cause . For these reasons, providers are very careful about how they prescribe opiates. It has been carefully considered what pain medicine is right for you. You may not have received opiate pain medicine if there are concerns about drug interactions or your safety. It is best to have one prescriber (doctor/provider) or clinic treat your pain. This way you will get the pain medicine that will help you the most, and monitoring for any problems that the medicine might cause. Follow-up care is a castro part of your treatment and safety. Be sure to make and go to all appointments, and call the number provided if you are having problems. It's also a good idea to know your testresults and keep a list of your medicines. How can you care for yourself at home? ? Try other ways to reduce pain: ? Relax, and reduce stress. Relaxation techniques such as deep breathing or meditation can help. ? Keep moving. Gentle, daily exercise can help reduce pain over the long run. Try low- or no-impactexercises such as walking, swimming, and stationary biking. Do stretches to stay flexible. ? Try heat, cold packs, and massage. ? Get enough sleep. Pain can make you tired and drain your energy. Talk with your doctor if you have trouble sleeping because of pain. ? Think positive. Your thoughts can affect your pain level. Do things that you enjoy to distract yourself when you have pain instead of focusing on the pain. See a movie, read a book, listen to music, or spend time with a friend. Prescription Pain Medications: ? The prescription provided should be enough to get you through until your follow up appointment with the Outpatient Trauma office or specialty service. ? DO NOT take more than prescribed. ? Refills on opiate pain medications can only be filled in person. ? Over time, you should be able to take less medications as your injuries heal. ? Take an over the counter stool softener daily with the pain medicine to prevent the development of constipation. ? Also drink plenty of water and eat foods high in fiber. If you are not taking a prescription pain medicine, take an ghjl-qni-ezteheu medicine as directed such as Tylenol (Acetaminophen) or Motrin (Ibuprofen). When should you call for help? Call your doctor now or seek immediate medical care if: ? You have a new kind of pain. ? You have new symptoms, such as a fever or rash, along with the pain. ? You think you might be using too much pain medicine. ? You need help to use less or stop taking pain medicine. ? Your pain gets worse. ? You would like a referral to a doctor or clinic that specializes in pain management. RETURN TO WORK You may return to work as follows: [ ] When you follow up with your specialist, they will tell you when you may return to work * Attachments The following attachments cannot be sent through Care Everywhere. * Angioedema (Uzbek) documented in this encounter Hospital Course * Elaine Anderson CNP - 02/26/2020 12:36 PM EST DISCHARGE SUMMARY Patient: Ana Campos Date of : 1970 Site: [facility] Family Provider: Wiliam Carter MD Admit Date: 02/25/2020 Discharge Date/Time: 02/26/20 Afternoon Disposition: Home Clinical Summary Hospital Course: Ana Campos is a 50 y.o. female with a past medical history of rheumatoid arthritis and Lupus who presented from [facility] on 02/25/2020 with tongue swelling. Pt had right carpal tunnel release surgery on 02/23 under local (lidocaine) anesthesia. Post op had complaints of tongue swelling, pain, and burning with difficulty handling secretions. Pt was intubated for airway protection 02/25/20. After receiving steroids, epi, benadryl and pepcid symptoms improved. She was [id number]/22/20. She remained asymptomatic and will be discharged home in good condition with plans for outpt follow up with her PCP and her orthopedic surgeon. Discharge Diagnoses: Angioedema - Unclear etiology- lidocaine, meloxicam - Pt with tongue pain, swelling, and difficulty with secretions - received epi, pepcid, methylprednisone, and benadryl at [facility] - stop decadron and change back to home prednisone. Change benadryl to prn - continues to be asymptomatic - discharge home today Acute Respiratory Failure - secondary to angioedema. Intubated for airway protection - Intubated 02/24. Vent day #2 - off sedation - passed SBT. Extubated 02/25. Doing well on room air Carpel Tunnel - s/p Right Carpel Tunnel release surgery 02/[address] Heard at [place] under local anesthesia - was prescribed cipro post op but never took a dose - keep right wrist dressing intact - pain control with tylenol Rheumatoid Arthritis - Follows with a physician in [place] (family does not recall name) - on prednisone but was recently told she needs to taper but had increasing pain with decreased prednisone dosing per significant other - had flair in knees and ankles Thursday and was placed on meloxicam for pain - resume prednisone Lupus - by history on plaquenil - continue plaquenil Surgeries: None Consults: Procedures Inpatient consult to Dietitian Allergies: Azithromycin, Bactrim [sulfamethoxazole-trimethoprim], Bee venom protein (honey bee), and Penicillins Discharge Diet: Resume home diet Condition: Good Discharge Medications: Current Discharge Medication List START taking these medications Details diphenhydrAMINE (BENADRYL) 25 mg capsule Take 1 (one) capsule (25 mg total) by mouth every 6 (six) hours as needed for itching . Qty: 24 capsule, Refills: 2 CONTINUE these medications which have NOT CHANGED Details meloxicam (MOBIC) 7.5 MG tablet Take 7.5 mg by mouth as needed for pain . ciprofloxacin HCl (CIPRO) 500 MG tablet Take 1 (one) tablet (500 mg total) by mouth 2 (two) times aday for 3 days . Qty: 6 tablet, Refills: 0 hydrOXYchloroQUINE (PLAQUENIL) 200 mg tablet Take 400 mg by mouth 2 (two) times a day Reasons: disease that causes disc-shaped patches on upper body, systemic lupus erythematosus, an autoimmune disease. predniSONE (DELTASONE) 20 MG tablet Take 30 mg by mouth daily . Physician(s) Family Provider: Wiliam Carter MD, Address: [address] / [place] [id number] Follow Up: Wiliam Carter MD [facility] [place] [address] Follow up in 1 week(s) Additional Information: Keep scheduled follow up with Dr. Heard Patient instructions, including activity, were given to the patient/family at discharge. Please seethe After Visit Summary in the electronic medical record for details. Time spent on discharge: > 30 minutes Completed by: Elaine Anderson CNP on 02/26/20, 12:36 PM documented in this encounter Chief Complaint ANNUAL WELLNESS- WILL BRING FORM NEXT WEEKYEARLY PHYSICALST, FEVER , FLORES, NAUSEA, CONGESTION, RUNNY NOSE AND COUGH X 3 DAYS. TOOK HOME COVID TEST THIS MORNING AND RESULTS WERE NEGATIVE Additional Source Comments INFORMATION SOURCE (unrecogn ized section and content) DATE CREATED AUTHOR AUTHOR'S ORGANIZ ATION 02/27/2020 [facility] DATE CREATED AUTHOR AUTHOR'S ORGANIZ ATION 02/27/2020 [facility] DATE CREATED AUTHOR AUTHOR'S ORGANIZ ATION 03/09/2020 [facility] DATE CREATED AUTHOR AUTHOR'S ORGANIZ ATION 03/09/2020 [facility] DATE CREATED AUTHOR AUTHOR'S ORGANIZ ATION 09/09/2020 [facility] DATE CREATED AUTHOR AUTHOR'S ORGANIZ ATION 01/07/2022 [facility] DATE CREATED AUTHOR AUTHOR'S ORGANIZ ATION 01/07/2022 [facility] DATE CREATED AUTHOR AUTHOR'S ORGANIZ ATION 10/03/2022 [facility] Reason for Visit (unrecogniz ed section and content) Reason Comments Follow-up Suture / Staple Removal Status Reason Specialty Diagnoses / Procedures Referre d By Contact Referred To Contact Diagnoses Carpal tunnel syndrome of right wrist Carpal tunnel syndrome of right wrist [G56.01] Procedures ND REVISE MEDIAN N/CARPAL TUNNEL SURG Evelyn Heard MD [address] [place] [address] Status Reason Specialty Diagnoses / Procedures Referre d By Contact Referred To Contact Diagnoses Respiratory failure (HCC) angioedema Reason Comments Post-op Follow-up Status Reason Specialty Diagnoses / Procedures Referre d By Contact Referred To Contact Closed Neurology Diagnoses Bilateral carpal tunnel syndrome Procedures Nerve conduction test Ashleigh Cummings CNP [address] [place] [address] Danica Dominguez MD [address] [address] Reason Comments Blepharitis LT x5days Reason Comments Wellness Op Note - Evelyn Heard MD - 2020 9:26 AM ESTBrief Op Note - Evelyn Heard MD - 2020 9:26 AM ESTQuick Note - Clemencia Crawford RN - 02/26/2020 2:27 PM EST Miscellaneous Notes (unrecog nized section and content) Dictation on: 2020 9:29 AM by: EVELYN HEARD [[id number]] Brief Post Operative Note Patient Name: Ana Campos : 1970 (49 y.o.) Date of Service: 2020 CSN: [id number] Procedure(s): RIGHT CARPAL TUNNEL RELEASE Pre-Operative Diagnoses: * Carpal tunnel syndrome of right wrist [G56.01] Post-Operative Diagnoses: * Same as Pre-Op Diagnosis * Carpal tunnel syndrome of right wrist [G56.01] Surgeon(s) and Role: * Evelyn Heard MD - Primary Anesthesiologist: Greg Suarez MD [employer]ILD[employer]DS SUPERVISOR: Sushila Parada CRNA Supervisor Paper Testing: Karen Gonsalez RN Scrub Person: ST Adonis Monitoring Nurse: Milana Peña RN Operative findings: see preop Intra and immediate post-operative complications: none Type of anesthesia used: local Estimated blood loss: 1 mL Estimated urine output: Refer to surgical log Specimen(s): * No specimens in log * Implant(s): * No implants in log * Drain(s): * No LDAs found * Wound(s): Wound 01/27/20 Surgical Wound Wrist Left (Active) Wound 02/24/20 Surgical Wound Hand Right (Active) Reassessment Unchd 02/24/20 0914 Dressing Status Clean;Dry;Intact 02/24/20 0904 Evelyn Heard MD 2020 9:26 AM documented in this encounter This RN went over AVS with patient. All questions answered. IV removed & dressing applied. Pt escorted to lobby via wheelchair. AN Martinez called and updated on condition and plan of care. All questions answered Checked for cuff leak. Pt has a good cuff leak at this time [facility] Utilization Review Notes HISTORY OF PRESENT ILLNESS: 50 y.o. female with a past medical history that includes rheumatoid arthritis and Lupus who presented from [facility] on 02/25/2020 with tongue swelling. Pt had right carpal tunnel release surgery on 02/23 under local (lidocaine) anesthesia early in the morning. HPI received from Jhonathan borges as pt is intubated and sedated. She was discharged home with tylenol for pain and cipro. She had cipro filled but never took a dose. Symptoms of tongue burning and itching started around 11am on 02/23 about 2 hours after surgery. Symptoms continued to worsening throughout the day. She did take benadryl around 1700 without improvement. Symptoms continued to progress and she was having difficulty swallowing and had to spit out saliva.There is report that she had similar but milder symptoms after her surgery in January. She presented to [facility] around midnight on 02/23-02/24. Pt was intubated at [facility] over concerns for airway protection. She received epi, benadryl, pepcid and steroids. She was transferred to [facility] for further management. VITAL SIGNS: On Vent: 02/25/20 1746 115Abnormal 10 98 30 02/25/20 1700 112Abnormal 15 136/78 99 30 02/25/20 1636 119Abnormal 16 99 30 02/25/20 1615 112Abnormal 15 99 30 02/25/20 1608 112Abnormal 16 98 30 02/25/20 1200 92 14 142/82Abnormal 100 30 02/25/20 1126 94 19Abnormal 133/83 100 30 02/25/20 1000 94 17 132/82 100 40 02/25/20 0933 99.6 102 19Abnormal 140/95Abnormal 100 50 EKG: No EKG available for this encounter at time of review WEIGHT: 61.9kg LABS: (Abnormal / Relevant): 02/25/2020 09:54 SODIUM: 133 (L) POTASSIUM: 4.5 CHLORIDE: 103 Bicarbonate: 19 (L) Anion Gap: 16 GLUCOSE: 143 (H) BUN: 11 CREATININE: 0.48 eGFR: 114 BUN/Creatinine Ratio: 22.9 (H) Total Protein: 5.8 (L) ALBUMIN: 3.1 (L) CALCIUM: 7.6 (L) ALK PHOS: 41 AST: 56 (H) ALT: 62 (H) Total Bilirubin: 0.2 MAGNESIUM: 1.8 PHOSPHORUS: 3.6 02/25/2020 10:21 Ionized Calcium: 4.8 02/25/2020 11:24 WBC: 3.41 (L) RBCs: 3.49 (L) HGB: 11.1 (L) HCT: 33.5 (L) 02/25/20 0955: SARS-CoV-2 Not Detected Not Detected Influenza A Not Detected Not Detected Influenza B Not Detected Not Detected IMAGING: (Abnormal / Relevant): 02/25/20 0957 CXR: 1. Satisfactory endotracheal tube. 2. Bandlike linear retrocardiac density suggestive of atelectatic streaks. 3. Negative appearing chest otherwise. Xray Abdomen: 1. Orogastric tube along with the proximal port in the stomach with the distal tip in the distal body of the stomach. DX: Angioedema - Unclear etiology- lidocaine, meloxicam - Pt with tongue pain, swelling, and difficulty with secretions - received epi, pepcid, methylprednisone, and benadryl at [facility] - continue steroids, pepcid, and benadryl Acute Respiratory Failure - secondary to angioedema. Intubated for airway protection - Intubated 02/24. Vent day #1 - TV 6ml/kg, Propofol for sedation - No plans for SAT/SBT today Carpel Tunnel - s/p Right Carpel Tunnel release surgery 02/[address] Heard at [place] under local anesthesia - was prescribed cipro post op but never took a dose - keep right wrist dressing intact - pain control with tylenol - Dr. Heard notified of pt admission Rheumatoid Arthritis - Follows with a physician in [place] (family does not recall name) - on prednisone but was recently told she needs to taper but had increasing pain with decreased prednisone dosing per significant other - had flair in knees and ankles Thursday and was placed on meloxicam for pain Lupus - by history on plaquenil - holding plaquenil for now ASSESSMENT / PLAN: Critical Care Review: DVT: Lovenox SQ GI: Pepcid Vent: Peridex and HOB >30 Bowel Regimen: Senna Antibiotics: None Lines: PIVs Tubes/Drains: Villarreal, OG Villarreal Indication: N/A placed at [facility] 02/24 Endo: Glucose controlled, <180 Diet: NPO RASS goal: -1 to +1 Delirium: CAM-ICU negative (no delirium) Mobility goal: PT/OT consult Restraints: N/A Dispo: ICU Pulmonology Note: 1. Acute respiratory failure with hypoxia 2. Upper airway compromise secondary to angioedema 3. Other medical problems as outlined Continue ventilatory support, sedation, H1 and H2 kellie, systemic steroids, ulcer prophylaxis. MEDS / ORDERS: dexamethasone (DECADRON) injection 4 mg 4 mg, Intravenous, Every 6 hours scheduled propofol (DIPRIVAN) infusion 0-50 mcg/kg/min, Intravenous, 0-18.6 mL/hr, Continuous Diet NPO Diet effective now Vital signs (Follow Critical Care - Analgesia and Sedation Guidelines (Do NOT complete SAT and SBT)) Every 4 hours Vital signs Every hour Maintain OG Until discontinued Villarreal catheter Continuous Cardiac monitoring Until discontinued Continuous Pulse Oximetry Until discontinued Ventilator Continuous PT eval and treat and implement plan of care (Early Mobility for Patients in Critical Care) Once OT eval and treat and implement plan of care (Early Mobility for Patients in Critical Care) Once Initiate special isolation (Patient does NOT have symptoms of NEENA) Continuous DISPO: TBD documented in this encounter Gil Carter Jr., DO - 02/25/2020 1:24 PM Elaine Bah, SENIOR SYSTEMS DEVELOPER - 02/25/2020 9:36 AM EST H&P Notes (unrecognized sect ion and content) Pulmonary and Critical Care Admission Note Impression and Recommendations Ana Campos is a 50 y.o. female 1. Acute respiratory failure with hypoxia 2. Upper airway compromise secondary to angioedema 3. Other medical problems as outlined Continue ventilatory support, sedation, H1 and H2 kellie, systemic steroids, ulcer prophylaxis. Hopefully can be performed in the morning. DVT Prophylaxis: Lovenox Code status: Goals of care reviewed. E [facility] [phone] Reason for Admission/Chief Complaint: As above History of Presenting Illness: Ana Campos is a 50 y.o. female with a past medical history as listed below most notable for rheumatoid arthritis lupus. The patient reportedly underwent a carpal tunnel procedure on 2020 with a local anesthetic and was discharged to the home setting with instructions to utilize Tylenol for pain in addition to ciprofloxacin for prevention of infection. Reportedly she did not utilize the antibiotic and developed tongue burning in the morning of 2020 approximately 2 hours following surgery. Symptoms progressed to oral labial swelling dysphagia, she presented to local emergency room and was semielectively intubated for airway control. She subsequently transferred to [facility]. Review of Systems: [] All other systems were reviewed and negative except for those as specified in History of Present illness. [x] Unable to obtain history or ROS secondary to clinical circumstances Past Medical, Surgical, Family, and Social History: Past Medical History: Diagnosis Date Lupus (HCC) Rheumatoid arthritis (HCC) Past Surgical History: Procedure Laterality Date CARPAL TUNNEL RELEASE OPEN Left 01/27/2020 Procedure: LEFT CARPAL TUNNEL RELEASE; Surgeon: Evelyn Heard MD; Location: Main OR; Service: Orthopedic HAND SURGERY Right Family History Family history unknown: Yes Social History Socioeconomic History Marital status: Spouse name: Not on file Number of children: Not on file Years of education: Not on file Highest education level: Not on file Occupational History Not on file Social Needs Financial resource strain: Not on file Food insecurity Worry: Not on file Inability: Not on file Transportation needs Medical: Not on file Non-medical: Not on file Tobacco Use Smoking status: Never Smoker Smokeless tobacco: Never Used Substance and Sexual Activity Alcohol use: Yes Drug use: Never Sexual activity: Not on file Lifestyle Physical activity Days per week: Not on file Minutes per session: Not on file Stress: Not on file Relationships Social connections Talks on phone: Not on file Gets together: Not on file Attends rastafari service: Not on file Active member of club or organization: Not on file Attends meetings of clubs or organizations: Not on file Relationship status: Not on file Other Topics Concern Not on file Social History Narrative Not on file Allergies and Medications: Allergies: Allergies Allergen Reactions Azithromycin Bactrim [Sulfamethoxazole-Trimethoprim] Itching Tongue and throat itched Bee Venom Protein (Honey Bee) Penicillins Current meds: chlorhexidine 15 mL Swab BID dexamethasone (DECADRON) inj 4 mg Intravenous Q6H JHONNY diphenhydrAMINE 25 mg Oral Daily enoxaparin (LOVENOX) injection 40 mg Subcutaneous Daily famotidine 20 mg Oral BID senna-docusate 1 tablet Oral BID sodium chloride (PF) 5 mL Intravenous Q8H JHONNY Data: Laboratory Data: [x] Pertinent lab data reviewed Radiology: [x] Images personally reviewed Microbiology: [x] Pertinent microbiology data reviewed No results for input(s): PHART, NTI1DLL, PO2ART, R5LHMBRJ, RESPRATE, TIDALVOL, PEEP, [id number] in the last 72 hours. Recent Labs 02/25/20 1124 WBC 3.41* HGB 11.1* PLT 333 Recent Labs 02/25/20 0954 02/25/20 1021 NA 133* -- K 4.5 -- CL 103 -- BICARB 19* -- BUN 11 -- CREATININE 0.48 -- GLUCOSE 143* -- PHOS 3.6 -- MG 1.8 -- ZAC -- 4.8 CALCIUM 7.6* -- BILITOT 0.2 -- ALKPHOS 41 -- ALT 62* -- AST 56* -- PROT 5.8* -- ALBUMIN 3.1* -- No results for input(s): INR, PTT in the last 72 hours. Physical Exam: Temp: [99.6 F (37.6 C)] 99.6 F (37.6 C) Heart Rate: [92-102] 95 Resp: [14-19] 19 BP: (132-142)/(77-95) 132/77 FiO2 (%): 30 Intake/Output Summary (Last 24 hours) at 02/25/2020 1324 Last data filed at 02/25/2020 0959 Gross per 24 hour Intake Output 225 ml Net -225 ml GENERAL: Alert, oriented to person no distress, vitals reviewed HEENT: EYES: Pupils equal, round and reactive, extraocular muscles intact. NOSE: membranes clear, no polyps. EARS: Hearing grossly intact. MOUTH: Oral endotracheal tube NECK: is supple, no thyromegaly. No stridor. HEART: regular rate and rhythm. No murmurs, rubs or gallops. LUNGS: Clear to auscultation bilaterally. No wheezing, rhonchi or rales. ABDOMEN: Positive bowel sounds, soft, nontender, non-distended. EXTREMITIES: No cyanosis, clubbing or edema in all 4 extremities. Peripheral pulses intact. NEURO: non-focal, grossly intact. SKIN: grossly free of rash History and Physical Patient Name:Ana Campos :1970 Admit Date: [facility] to take over care when transferred out of the ICU Perpetual Assessment: Ana Campos is a 50 y.o. female with a past medical history of rheumatoid arthritis and Lupus who presented from [facility] on 02/25/2020 with tongue swelling. Pt had right carpal tunnel release surgery on 02/23 under local (lidocaine) anesthesia. Post op had complaints of tongue swelling, pain, and burning with difficulty handling secretions. Pt was intubated for airway protection 02/25/20. After receiving steroids, epi, benadryl and pepcid, she was transferred to [facility] for ongoing management of angioedema. Assessment and Plan: Angioedema - Unclear etiology- lidocaine, meloxicam - Pt with tongue pain, swelling, and difficulty with secretions - received epi, pepcid, methylprednisone, and benadryl at [facility] - continue steroids, pepcid, and benadryl Acute Respiratory Failure - secondary to angioedema. Intubated for airway protection - Intubated 02/24. Vent day #1 - TV 6ml/kg, Propofol for sedation - No plans for SAT/SBT today Carpel Tunnel - s/p Right Carpel Tunnel release surgery 02/[address] Heard at [place] under local anesthesia - was prescribed cipro post op but never took a dose - keep right wrist dressing intact - pain control with tylenol - Dr. Heard notified of pt admission Rheumatoid Arthritis - Follows with a physician in [place] (family does not recall name) - on prednisone but was recently told she needs to taper but had increasing pain with decreased prednisone dosing per significant other - had flair in knees and ankles Thursday and was placed on meloxicam for pain Lupus - by history on plaquenil - holding plaquenil for now Critical Care Review: DVT: Lovenox SQ GI: Pepcid Vent: Peridex and HOB >30 Bowel Regimen: Senna Antibiotics: None Lines: PIVs Tubes/Drains: Villarreal, OG Villarreal Indication: N/A placed at [facility] 02/24 Endo: Glucose controlled, <180 Diet: NPO RASS goal: -1 to +1 Delirium: CAM-ICU negative (no delirium) Mobility goal: PT/OT consult Restraints: N/A Dispo: ICU On 02/25/20, Code Status was discussed with the patient's family. After discussion, the patient was determined to be Full Code Code Status: Full Code After discussion with family , medication reconciliation was complete. Plan discussed with Dr. Carter. Elaine Anderson MSN, ACNP Critical Care Nurse Practitioner Chief Complaint: Tongue swelling, burning, pain History of Presenting Illness: Ana Campos is a 50 y.o. female with a past medical history that includes rheumatoid arthritis and Lupus who presented from [facility] on 02/25/2020 with tongue swelling. Pt had right carpal tunnel release surgery on 02/23 under local (lidocaine) anesthesia early in the morning. HPI received from Jhonathan borges as pt is intubated and sedated. She was discharged home with tylenol for pain and cipro. She had cipro filled but never took a dose. Symptoms of tongue burning and itching started around 11am on 02/23 about 2 hours after surgery. Symptoms continued to worsening throughout the day. She did take benadryl around 1700 without improvement. Symptoms continued to progress and she was having difficulty swallowing and had to spit out saliva.There is report that she had similar but milder symptoms after her surgery in January. She presented to [facility] around midnight on 02/23- 02/24. Pt was intubated at [facility] over concerns for airway protection. She received epi, benadryl, pepcid and steroids. She was transferred to [facility] for further management. Review of Systems: [x] All other systems were reviewed and negative except for those as specified in History of Present illness. [] Unable to obtain ROS secondary to clinical circumstances Past Medical, Surgical, Family, and Social History: Past Medical History: Diagnosis Date Lupus (HCC) RA (rheumatoid arthritis) ([facility]) Past Surgical History: Procedure Laterality Date CARPAL TUNNEL RELEASE OPEN Left 01/27/2020 Procedure: LEFT CARPAL TUNNEL RELEASE; Surgeon: Evelyn Heard MD; Location: [facility]; Service: Orthopedic HAND SURGERY Right No family history on file. Social History Socioeconomic History Marital status: Spouse name: Not on file Number of children: Not on file Years of education: Not on file Highest education level: Not on file Occupational History Not on file Social Needs Financial resource strain: Not on file Food insecurity Worry: Not on file Inability: Not on file Transportation needs Medical: Not on file Non-medical: Not on file Tobacco Use Smoking status: Never Smoker Smokeless tobacco: Never Used Substance and Sexual Activity Alcohol use: Yes Drug use: Never Sexual activity: Not on file Lifestyle Physical activity Days per week: Not on file Minutes per session: Not on file Stress: Not on file Relationships Social connections Talks on phone: Not on file Gets together: Not on file Attends rastafari service: Not on file Active member of club or organization: Not on file Attends meetings of clubs or organizations: Not on file Relationship status: Not on file Other Topics Concern Not on file Social History Narrative Not on file Allergies and Medications: Allergies: Allergies Allergen Reactions Azithromycin Bactrim [Sulfamethoxazole-Trimethoprim] Itching Tongue and throat itched Bee Venom Protein (Honey Bee) Penicillins Current meds: chlorhexidine 15 mL Swab BID dexamethasone (DECADRON) inj 4 mg Intravenous Q6H JHONNY diphenhydrAMINE 25 mg Oral Daily famotidine 20 mg Oral BID senna-docusate 1 tablet Oral BID sodium chloride (PF) 5 mL Intravenous Q8H JHONNY Additional Data: Laboratory Data: [x] Pertinent data reviewed Radiology: [x] Pertinent data reviewed Microbiology: [x] Pertinent data reviewed Outside Records: [x] Pertinent data reviewed No results for input(s): PHART, SGL2HQD, PO2ART, O1NONVDS, RESPRATE, TIDALVOL, PEEP, [id number] in the last 72 hours. No results for input(s): WBC, HGB, PLT in the last 72 hours. No results for input(s): NA, K, CL, BICARB, BUN, CREATININE, GLUCOSE, PHOS, MG, ZAC, CALCIUM, BILITOT, ALKPHOS, ALT, AST, PROT, ALBUMIN in the last 72 hours. Invalid input(s): ALB No results for input(s): INR, PTT in the last 72 hours. Physical Exam: Vital Signs: Temp: [99.6 F (37.6 C)] 99.6 F (37.6 C) Heart Rate: [102] 102 Resp: [19] 19 BP: (140)/(95) 140/95 FiO2 (%): 50 No intake or output data in the 24 hours ending 02/25/20 0936 CONSTITUTIONAL: In no distress HEENT: PERRL. Nose membranes clear, no polyps. Hearing intact. Mouth moist and pink with no exudates. NECK: Supple. Trachea midline. No stridor. CV: regular rate and rhythm, no murmurs, rubs, or gallops noted, No edema RESP: CTA to auscultation bilaterally. No wheezing, rhonchi or rales. No increase in respiratory effort or use of accessory muscles. GI: soft, nontender, nondistended, bowel sounds present MUSCULOSKELETAL: No cyanosis or clubbing in all 4 extremities. Normal ROM without deformity. Right wrist dressing c/d/i. NVI distally. PSYCH: Alert, oriented 2-3. NEURO: Non-focal, grossly intact. Follows commands. SKIN: Warm and dry. Grossly free of rash. Associated attestation - Gil Carter Jr., DO - 02/25/2020 2:30 PM EST See my separate H&Pdocumented in this encounter Britany Herzog - 02/25/2020 9:38 AM Juju Stein RN - 02/25/2020 9:09 AM EST ED Notes (unrecognized secti on and content) [facility] WILL BE THE RECEIVING SERVICE UPON TRANSFER FROM CC UNIT Patient transported to [place] by [facility]. Receiving unit notified of patient's ETA. Vital signs: BP 130/79, HR 91, RR 10, Pulse Ox 100% on VENT: FIO2 41%; A/C 10; Vt 400; PEEP 5. Chief complaint of Angioedema. Patient does have patent IV access. Propofol and NS IV gtts infusing. Patient was on cardiac catheterization technician showing NSR during transport. Patient will be transported to room [facility] on arrival. documented in this encounter Care Teams (unrecognized sec tion and content) Gullet Slitter Relationship Specialty Start Date End Date Wiliam Carter MD [address] [place] [address] PCP - General 05/10/19 Wiliam Carter MD [address] [place] [address] PCP - Bharathi DHILLON PCP 04/06/21 FOR RECORDS PERTAINING TO PATIENTS WHO ARE OR HAVE BEEN ENROLLED IN A CHEMICAL DEPENDENCY/SUBSTANCEABUSE PROGRAM, SOME INFORMATION MAY BE OMITTED. This clinical summary was aggregated from multiple sources. Caution should be exercised in using it in the provision of clinical care. This summary normalizes information from multiple sources, and as a consequence, information in this document may materially change the coding, format and clinical context of patient data. In addition, data may be omitted in some cases. CLINICAL DECISIONS SHOULD BE BASED ON THE PRIMARY CLINICAL RECORDS. [facility] [employer] provides no warranty or guarantee of the accuracy or completeness of information in this document.
[2023-04-22 10:22] LABS: Color, Urine Yellow (Yellow); Glucose, Dipstick Normal (Normal); Ketone-Dipstick Negative (Negative); Leukocyte Esterase-Dipstick Negative /ul (Negative); Nitrite-Dipstick Negative (Negative); Occult Blood-Urine Negative /ul (Negative); Protein-Dipstick Negative (Negative); Urine Bilirubin Dipstick Negative (Negative); Urine Clarity Clear (Clear); Urine Urobilinogen Normal (Normal)
[2023-04-22 10:26] LABS: Absolute Lymphocyte Count 0.62 X10^3/uL (0.83-4.51); Absolute Neutrophil Count 1.3 X10^3/uL (2.0-7.7); Basophil# 0.02 X10^3/uL; Basophil% 0.8 % (0-1); Eosinophil# 0.06 X10^3/uL; Eosinophils% 2.5 % (0-5); Hemoglobin 13.4 g/dL (12.0-15.0); Lymphocyte # 0.62 X10^3/ul (0.83-4.51); Lymphocyte % 25.7 % (19-41); Mean Corp Hgb Conc 31.9 g/dL (32-36); Mean Corpuscular Hgb 31.8 pg (27.0-32.0); Mean Corpuscular Volume 99.8 fL (81-99); Mean Platelet Vol. 11.5 fl (6.2-12.0); Monocyte# 0.38 X10^3/uL; Monocyte% 15.8 % (0-10); NRBC Flagged by Analyzer 0 % (0-5); Neutrophil # 1.33 X10^3/uL (2.7-7.7); Neutrophil % 55.2 % (47-70); Platelet Count 161 K/mm3 (150-450); RBC Distribution Width CV 12.3 % (11.6-14.6); RBC Distribution Width SD 45.1 fl (35.1-43.9); Red Blood Count 4.21 M/mm3 (4.2-5.4); White Blood Count 2.4 K/mm3 (4.4-11.0)
[2023-04-22 10:58] LABS: Protein:Creat Ratio 209 mg/g CRE (0-200)
[2023-04-22 11:01] LABS: ALB/GLOB Ratio 1.1 RATIO (0.9-2.4); AST(SGOT) 26 U/L (15-37); Alanine Aminotransfer ALT/SGPT 20 U/L (13-56); Albumin, Serum 3.8 g/dL (3.2-5.0); Alkaline Phosphatase 77 U/L (45-117); Anion Gap 4 (5-15); BUN 13 mg/dL (7-18); BUN/Creat Ratio 18.7 RATIO (10-20); Calcium,Total 9.4 mg/dL (8.5-10.1); Chloride 109 mmol/L (98-107); EST Glomerular Filtration Rate 93 mL/min (>60); Est Glom Filt Rate - Afr Amer 113 mL/min (>60); Globulin 3.5 g/dL (2.2-4.2); Glucose 81 mg/dL (74-106); Potassium 4.3 mmol/L (3.5-5.1); Protein, Total 7.3 g/dL (6.4-8.2); Sodium Level 139 mmol/L (136-145)
[2023-04-23 05:08] LABS: Complement C3 80 mg/dL (82-167)
[2023-04-23 11:08] LABS: Anti-dsDNA Ab 35 IU/mL (0-9)
== END | disposition home or self-care (01) ==
PROVIDERS: PCP Family Medicine; Referring Provider Internal Medicine Rheumatology; Visit Provider Internal Medicine Rheumatology
DX: M32.9 Systemic lupus erythematosus, unspecified (principal); M06.4 Inflammatory polyarthropathy; Z79.899 Other long term (current) drug therapy; R76.8 Other specified abnormal immunological findings in serum; G56.03 Carpal tunnel syndrome, bilateral upper limbs
CPT/HCPCS: 36415; 80053; 81002; 82570; 84156; 85025; 86160; 86225

== ENCOUNTER → 2023-06-23 | Outpatient (CLI) | payer BC, SELFPAY ==
[2023-06-23 09:59] LABS: Color, Urine Yellow (Yellow); Glucose, Dipstick Normal (Normal); Ketone-Dipstick Negative (Negative); Leukocyte Esterase-Dipstick Negative /ul (Negative); Nitrite-Dipstick Negative (Negative); Occult Blood-Urine Negative /ul (Negative); Protein-Dipstick Negative (Negative); Urine Bilirubin Dipstick Negative (Negative); Urine Clarity Clear (Clear); Urine Urobilinogen Normal (Normal)
[2023-06-23 10:11] LABS: Protein, Urine (Random) 11.2 mg/dL (<11.9); Protein:Creat Ratio 257 mg/g CRE (0-200)
[2023-06-23 10:19] LABS: Absolute Lymphocyte Count 0.57 X10^3/uL (0.83-4.51); Absolute Neutrophil Count 1.2 X10^3/uL (2.0-7.7); Basophil# 0.02 X10^3/uL; Basophil% 0.9 % (0-1); Eosinophil# 0.08 X10^3/uL; Eosinophils% 3.6 % (0-5); Hematocrit 40.5 % (37-47); Hemoglobin 12.9 g/dL (12.0-15.0); Lymphocyte # 0.57 X10^3/ul (0.83-4.51); Lymphocyte % 25.6 % (19-41); Mean Corp Hgb Conc 31.9 g/dL (32-36); Mean Corpuscular Hgb 31.2 pg (27.0-32.0); Mean Corpuscular Volume 98.1 fL (81-99); Mean Platelet Vol. 11.1 fl (6.2-12.0); Monocyte# 0.35 X10^3/uL; Monocyte% 15.7 % (0-10); NRBC Flagged by Analyzer 0 % (0-5); Neutrophil % 53.8 % (47-70); POSITIVE DIFFERENTIAL YES; Platelet Count 193 K/mm3 (150-450); RBC Distribution Width CV 12.2 % (11.6-14.6); RBC Distribution Width SD 43.6 fl (35.1-43.9); Red Blood Count 4.13 M/mm3 (4.2-5.4); White Blood Count 2.2 K/mm3 (4.4-11.0)
[2023-06-23 10:27] LABS: AST(SGOT) 26 U/L (15-37); Alanine Aminotransfer ALT/SGPT 16 U/L (13-56); Albumin, Serum 3.5 g/dL (3.2-5.0); Alkaline Phosphatase 73 U/L (45-117); Anion Gap 3 (5-15); BUN 14 mg/dL (7-18); BUN/Creat Ratio 20.3 RATIO (10-20); Calcium,Total 9.2 mg/dL (8.5-10.1); Chloride 106 mmol/L (98-107); Creatinine, Serum 0.69 mg/dL (0.55-1.02); Differential Indicated SCAN CRITERIA MET; EST Glomerular Filtration Rate 94 mL/min (>60); Est Glom Filt Rate - Afr Amer 114 mL/min (>60); Globulin 3.6 g/dL (2.2-4.2); Glucose 82 mg/dL (74-106); Potassium 4.1 mmol/L (3.5-5.1); Protein, Total 7.1 g/dL (6.4-8.2); Sodium Level 137 mmol/L (136-145)
[2023-06-24 07:08] LABS: Complement C3 74 mg/dL (82-167)
[2023-06-24 12:09] LABS: Anti-dsDNA Ab 28 IU/mL (0-9)
[2023-06-25 09:26] LABS: Pathologist Review Reviewed
== END | disposition home or self-care (01) ==
LOC: MTLAB 07:26
PROVIDERS: PCP Family Medicine; Referring Provider Internal Medicine Rheumatology; Visit Provider Internal Medicine Rheumatology
DX: M32.9 Systemic lupus erythematosus, unspecified (principal); M06.4 Inflammatory polyarthropathy; Z79.899 Other long term (current) drug therapy; R76.8 Other specified abnormal immunological findings in serum; G56.03 Carpal tunnel syndrome, bilateral upper limbs
CPT/HCPCS: 36415; 80053; 81002; 82570; 84156; 85025; 86160; 86225

== ENCOUNTER → 2023-07-15 | Outpatient (CLI) | payer BC, SELFPAY ==
[2023-07-15 10:30] LABS: Microalbumin,Random Urine 10.3 mg/L (NO RANGE EST.); Microalbumin:Creatinine Ratio 8.5 mg/g CRE (<30 mg/g CRE)
[2023-07-15 10:39] LABS: Anion Gap 5 (5-15); BUN 14 mg/dL (7-18); BUN/Creat Ratio 20.5 RATIO (10-20); Calcium,Total 9.2 mg/dL (8.5-10.1); Chloride 104 mmol/L (98-107); Creatinine, Serum 0.68 mg/dL (0.55-1.02); EST Glomerular Filtration Rate 95 mL/min (>60); Est Glom Filt Rate - Afr Amer 115 mL/min (>60); Glucose 81 mg/dL (74-106); Potassium 4.6 mmol/L (3.5-5.1); Sodium Level 137 mmol/L (136-145)
== END | disposition home or self-care (01) ==
PROVIDERS: PCP Family Medicine; Referring Provider Internal Medicine Nephrology; Visit Provider Internal Medicine Nephrology
DX: M32.14 Glomerular disease in systemic lupus erythematosus (principal)
CPT/HCPCS: 36415; 80048; 82043; 82570

== ENCOUNTER → 2023-09-03 | Outpatient (CLI) | payer BC, SELFPAY ==
[2023-09-03 10:09] LABS: Absolute Lymphocyte Count 0.61 X10^3/uL (0.83-4.51); Absolute Neutrophil Count 1.5 X10^3/uL (2.0-7.7); Basophil# 0.03 X10^3/uL; Basophil% 1.1 % (0-1); Eosinophil# 0.09 X10^3/uL; Eosinophils% 3.4 % (0-5); Hemoglobin 13.3 g/dL (12.0-15.0); Lymphocyte # 0.61 X10^3/ul (0.83-4.51); Lymphocyte % 22.8 % (19-41); Mean Corp Hgb Conc 32.4 g/dL (32-36); Mean Corpuscular Hgb 32.3 pg (27.0-32.0); Mean Corpuscular Volume 99.5 fL (81-99); Mean Platelet Vol. 11.2 fl (6.2-12.0); Monocyte# 0.47 X10^3/uL; Monocyte% 17.6 % (0-10); NRBC Flagged by Analyzer 0 % (0-5); Neutrophil # 1.47 X10^3/uL (2.7-7.7); Neutrophil % 55.1 % (47-70); Platelet Count 195 K/mm3 (150-450); RBC Distribution Width CV 12.7 % (11.6-14.6); RBC Distribution Width SD 46.4 fl (35.1-43.9); Red Blood Count 4.12 M/mm3 (4.2-5.4); White Blood Count 2.7 K/mm3 (4.4-11.0)
[2023-09-03 10:30] LABS: ALB/GLOB Ratio 1.1 RATIO (0.9-2.4); AST(SGOT) 26 U/L (15-37); Alanine Aminotransfer ALT/SGPT 27 U/L (13-56); Albumin, Serum 3.7 g/dL (3.2-5.0); Alkaline Phosphatase 72 U/L (45-117); Anion Gap 3 (5-15); BUN 13 mg/dL (7-18); BUN/Creat Ratio 20.9 RATIO (10-20); Calcium,Total 9.1 mg/dL (8.5-10.1); Chloride 106 mmol/L (98-107); Creatinine, Serum 0.62 mg/dL (0.55-1.02); EST Glomerular Filtration Rate 106 mL/min (>60); Est Glom Filt Rate - Afr Amer 129 mL/min (>60); Globulin 3.4 g/dL (2.2-4.2); Glucose 83 mg/dL (74-106); Potassium 4.1 mmol/L (3.5-5.1); Protein, Total 7.1 g/dL (6.4-8.2); Sodium Level 137 mmol/L (136-145)
[2023-09-03 10:32] LABS: Protein, Urine (Random) 21.7 mg/dL (<11.9); Protein:Creat Ratio 152 mg/g CRE (0-200)
[2023-09-03 10:34] LABS: Color, Urine Yellow (Yellow); Glucose, Dipstick Normal (Normal); Ketone-Dipstick Negative (Negative); Leukocyte Esterase-Dipstick Negative /ul (Negative); Nitrite-Dipstick Negative (Negative); Occult Blood-Urine Negative /ul (Negative); Protein-Dipstick 15 mg/dl (Negative); Urine Bilirubin Dipstick Negative (Negative); Urine Clarity Clear (Clear); Urine Urobilinogen Normal (Normal); Urine pH 6.5 (5.0 - 8.0)
[2023-09-04 09:09] LABS: Complement C3 95 mg/dL (82-167)
[2023-09-04 13:09] LABS: Anti-dsDNA Ab 26 IU/mL (0-9)
== END | disposition home or self-care (01) ==
LOC: MTLAB 07:48
PROVIDERS: PCP Family Medicine; Referring Provider Internal Medicine Rheumatology; Visit Provider Internal Medicine Rheumatology
DX: M32.9 Systemic lupus erythematosus, unspecified (principal); M06.4 Inflammatory polyarthropathy; Z79.899 Other long term (current) drug therapy; R76.8 Other specified abnormal immunological findings in serum
CPT/HCPCS: 36415; 80053; 81002; 82570; 84156; 85025; 86160; 86225

== ENCOUNTER → 2023-11-24 | Outpatient (CLI) | payer BC, SELFPAY ==
[2023-11-24 10:28] LABS: Color, Urine Yellow (Yellow); Glucose, Dipstick Normal (Normal); Ketone-Dipstick Negative (Negative); Leukocyte Esterase-Dipstick Negative /ul (Negative); Nitrite-Dipstick Negative (Negative); Occult Blood-Urine Negative /ul (Negative); Protein-Dipstick Negative (Negative); Urine Bilirubin Dipstick Negative (Negative); Urine Clarity Clear (Clear); Urine Urobilinogen Normal (Normal)
[2023-11-24 10:36] LABS: Absolute Lymphocyte Count 0.57 X10^3/uL (0.83-4.51); Absolute Neutrophil Count 1.4 X10^3/uL (2.0-7.7); Basophil# 0.02 X10^3/uL; Basophil% 0.8 % (0-1); Eosinophil# 0.07 X10^3/uL; Eosinophils% 2.9 % (0-5); Hematocrit 40.1 % (37-47); Hemoglobin 13.2 g/dL (12.0-15.0); Lymphocyte # 0.57 X10^3/ul (0.83-4.51); Lymphocyte % 23.5 % (19-41); Mean Corp Hgb Conc 32.9 g/dL (32-36); Mean Corpuscular Hgb 32.5 pg (27.0-32.0); Mean Corpuscular Volume 98.8 fL (81-99); Mean Platelet Vol. 10.9 fl (6.2-12.0); Monocyte# 0.37 X10^3/uL; Monocyte% 15.2 % (0-10); NRBC Flagged by Analyzer 0 % (0-5); Neutrophil % 57.6 % (47-70); POSITIVE DIFFERENTIAL YES; Platelet Count 180 K/mm3 (150-450); RBC Distribution Width CV 12.1 % (11.6-14.6); RBC Distribution Width SD 44.6 fl (35.1-43.9); Red Blood Count 4.06 M/mm3 (4.2-5.4); White Blood Count 2.4 K/mm3 (4.4-11.0)
[2023-11-24 10:40] LABS: Differential Indicated SCAN CRITERIA MET
[2023-11-24 11:01] LABS: AST(SGOT) 22 U/L (15-37); Alanine Aminotransfer ALT/SGPT 19 U/L (13-56); Albumin, Serum 3.5 g/dL (3.2-5.0); Alkaline Phosphatase 68 U/L (45-117); Anion Gap 4 (5-15); BUN 12 mg/dL (7-18); BUN/Creat Ratio 16.4 RATIO (10-20); Calcium,Total 9.4 mg/dL (8.5-10.1); Chloride 107 mmol/L (98-107); Creatinine, Serum 0.73 mg/dL (0.55-1.02); EST Glomerular Filtration Rate 88 mL/min (>60); Est Glom Filt Rate - Afr Amer 106 mL/min (>60); Globulin 3.6 g/dL (2.2-4.2); Glucose 84 mg/dL (74-106); Potassium 4.4 mmol/L (3.5-5.1); Protein, Total 7.1 g/dL (6.4-8.2); Sodium Level 138 mmol/L (136-145)
[2023-11-24 11:13] LABS: Reactive Lymphocyte 1+
[2023-11-24 11:15] LABS: Protein, Urine (Random) 14.5 mg/dL (<11.9); Protein:Creat Ratio 175 mg/g CRE (0-200)
[2023-11-25 13:15] LABS: Pathologist Review Reviewed
[2023-11-26 05:07] LABS: Complement C3 90 mg/dL (82-167)
[2023-11-26 15:09] LABS: Anti-dsDNA Ab 26 IU/mL (0-9)
== END | disposition home or self-care (01) ==
LOC: MTLAB 07:35
PROVIDERS: PCP Family Medicine; Referring Provider Internal Medicine Rheumatology; Visit Provider Internal Medicine Rheumatology
DX: M32.9 Systemic lupus erythematosus, unspecified (principal); M06.4 Inflammatory polyarthropathy; Z79.899 Other long term (current) drug therapy; R76.8 Other specified abnormal immunological findings in serum; G56.03 Carpal tunnel syndrome, bilateral upper limbs
CPT/HCPCS: 36415; 80053; 81002; 82570; 84156; 85025; 86160; 86225

== ENCOUNTER → 2024-01-07 | Outpatient (CLI) | payer BC, SELFPAY ==
[2024-01-07 10:51] LABS: Microalbumin,Random Urine 5.6 mg/L (NO RANGE EST.); Microalbumin:Creatinine Ratio 6.7 mg/g CRE (<30 mg/g CRE)
[2024-01-07 11:27] LABS: Anion Gap 2 (5-15); BUN 13 mg/dL (7-18); BUN/Creat Ratio 18.1 RATIO (10-20); Calcium,Total 9.8 mg/dL (8.5-10.1); Chloride 107 mmol/L (98-107); Creatinine, Serum 0.72 mg/dL (0.55-1.02); EST Glomerular Filtration Rate 90 mL/min (>60); Est Glom Filt Rate - Afr Amer 108 mL/min (>60); Glucose 83 mg/dL (74-106); Potassium 4.5 mmol/L (3.5-5.1); Sodium Level 137 mmol/L (136-145)
== END | disposition home or self-care (01) ==
PROVIDERS: PCP Family Medicine; Referring Provider Nurse Practitioner Adult Health; Visit Provider Nurse Practitioner Adult Health
DX: M32.14 Glomerular disease in systemic lupus erythematosus (principal)
CPT/HCPCS: 36415; 80048; 82043; 82570

== ENCOUNTER → 2024-02-17 | Outpatient (CLI) | payer BC, SELFPAY ==
[2024-02-17 18:15] LABS: Absolute Lymphocyte Count 0.93 X10^3/uL (0.83-4.51); Absolute Neutrophil Count 1.5 X10^3/uL (2.0-7.7); Basophil# 0.03 X10^3/uL; Basophil% 1.1 % (0-1); Eosinophil# 0.06 X10^3/uL; Eosinophils% 2.1 % (0-5); Hematocrit 39.2 % (37-47); Hemoglobin 12.3 g/dL (12.0-15.0); Lymphocyte # 0.93 X10^3/ul (0.83-4.51); Lymphocyte % 33.2 % (19-41); Mean Corp Hgb Conc 31.4 g/dL (32-36); Mean Corpuscular Hgb 31.4 pg (27.0-32.0); Mean Platelet Vol. 11.1 fl (6.2-12.0); Monocyte# 0.32 X10^3/uL; Monocyte% 11.4 % (0-10); NRBC Flagged by Analyzer 0 % (0-5); Neutrophil # 1.46 X10^3/uL (2.7-7.7); Neutrophil % 52.2 % (47-70); Platelet Count 168 K/mm3 (150-450); RBC Distribution Width SD 43.5 fl (35.1-43.9); Red Blood Count 3.92 M/mm3 (4.2-5.4); White Blood Count 2.8 K/mm3 (4.4-11.0)
[2024-02-17 18:16] LABS: Color, Urine Yellow (Yellow); Glucose, Dipstick Normal (Normal); Ketone-Dipstick Negative (Negative); Leukocyte Esterase-Dipstick Negative /ul (Negative); Nitrite-Dipstick Negative (Negative); Occult Blood-Urine Negative /ul (Negative); Protein-Dipstick Negative (Negative); Urine Bilirubin Dipstick Negative (Negative); Urine Clarity Clear (Clear); Urine Urobilinogen Normal (Normal)
[2024-02-17 18:29] LABS: ALB/GLOB Ratio 1.1 RATIO (0.9-2.4); AST(SGOT) 14 U/L (15-37); Alanine Aminotransfer ALT/SGPT 20 U/L (13-56); Albumin, Serum 3.6 g/dL (3.2-5.0); Alkaline Phosphatase 65 U/L (45-117); Anion Gap 3 (5-15); BUN 21 mg/dL (7-18); BUN/Creat Ratio 30.8 RATIO (10-20); Chloride 107 mmol/L (98-107); Creatinine, Serum 0.68 mg/dL (0.55-1.02); EST Glomerular Filtration Rate 95 mL/min (>60); Est Glom Filt Rate - Afr Amer 115 mL/min (>60); Globulin 3.4 g/dL (2.2-4.2); Glucose 82 mg/dL (74-106); Potassium 4.4 mmol/L (3.5-5.1); Sodium Level 139 mmol/L (136-145)
[2024-02-17 18:41] LABS: Protein:Creat Ratio 265 mg/g CRE (0-200)
[2024-02-19 04:07] LABS: Complement C3 86 mg/dL (82-167)
[2024-02-19 14:10] LABS: Anti-dsDNA Ab 27 IU/mL (0-9)
== END | disposition home or self-care (01) ==
LOC: MTLAB 14:17
PROVIDERS: PCP Family Medicine; Referring Provider Internal Medicine Rheumatology; Visit Provider Internal Medicine Rheumatology
DX: M32.9 Systemic lupus erythematosus, unspecified (principal); M06.4 Inflammatory polyarthropathy; Z79.899 Other long term (current) drug therapy; R76.8 Other specified abnormal immunological findings in serum
CPT/HCPCS: 36415; 80053; 81002; 82570; 84156; 85025; 86160; 86225

== ENCOUNTER → 2024-03-15 | Outpatient (CLI) | payer BC, SELFPAY ==
[2024-03-15 10:33] LABS: Anion Gap 4 (5-15); BUN 15 mg/dL (7-18); BUN/Creat Ratio 20.7 RATIO (10-20); Calcium,Total 9.4 mg/dL (8.5-10.1); Chloride 109 mmol/L (98-107); Creatinine, Serum 0.72 mg/dL (0.55-1.02); EST Glomerular Filtration Rate 89 mL/min (>60); Est Glom Filt Rate - Afr Amer 108 mL/min (>60); Glucose 83 mg/dL (74-106); Potassium 4.4 mmol/L (3.5-5.1); Sodium Level 139 mmol/L (136-145)
[2024-03-15 11:12] LABS: Microalbumin,Random Urine 7.1 mg/L (NO RANGE EST.)
== END | disposition home or self-care (01) ==
LOC: MTLAB 07:04
PROVIDERS: PCP Family Medicine; Referring Provider Internal Medicine Nephrology; Visit Provider Internal Medicine Nephrology
DX: M32.14 Glomerular disease in systemic lupus erythematosus (principal)
CPT/HCPCS: 36415; 80048; 82043; 82570

== ENCOUNTER → 2024-04-11 | Outpatient (CLI) | payer BC, SELFPAY ==
[2024-04-11 10:37] LABS: Color, Urine Yellow (Yellow); Glucose, Dipstick Normal (Normal); Ketone-Dipstick Negative (Negative); Leukocyte Esterase-Dipstick Negative /ul (Negative); Nitrite-Dipstick Negative (Negative); Occult Blood-Urine Negative /ul (Negative); Protein-Dipstick Negative (Negative); Specific Gravity, Urine 1.005 (1.002-1.030); Urine Bilirubin Dipstick Negative (Negative); Urine Clarity Clear (Clear); Urine Urobilinogen Normal (Normal)
[2024-04-11 10:47] LABS: Absolute Lymphocyte Count 0.59 X10^3/uL (0.83-4.51); Absolute Neutrophil Count 1.6 X10^3/uL (2.0-7.7); Basophil# 0.02 X10^3/uL; Basophil% 0.7 % (0-1); Eosinophil# 0.05 X10^3/uL; Eosinophils% 1.9 % (0-5); Hematocrit 40.5 % (37-47); Lymphocyte # 0.59 X10^3/ul (0.83-4.51); Lymphocyte % 21.9 % (19-41); Mean Corp Hgb Conc 32.1 g/dL (32-36); Mean Corpuscular Hgb 32.3 pg (27.0-32.0); Mean Corpuscular Volume 100.5 fL (81-99); Mean Platelet Vol. 10.7 fl (6.2-12.0); Monocyte# 0.38 X10^3/uL; Monocyte% 14.1 % (0-10); NRBC Flagged by Analyzer 0 % (0-5); Neutrophil # 1.64 X10^3/uL (2.7-7.7); POSITIVE DIFFERENTIAL YES; Platelet Count 159 K/mm3 (150-450); RBC Distribution Width CV 12.5 % (11.6-14.6); RBC Distribution Width SD 45.5 fl (35.1-43.9); Red Blood Count 4.03 M/mm3 (4.2-5.4); White Blood Count 2.7 K/mm3 (4.4-11.0)
[2024-04-11 10:52] LABS: Differential Indicated SCAN CRITERIA MET
[2024-04-11 11:19] LABS: Platelet Estimate A (ADEQ)
[2024-04-11 11:20] LABS: Protein, Urine (Random) 10.3 mg/dL (<11.9); Protein:Creat Ratio 175 mg/g CRE (0-200)
[2024-04-11 11:28] LABS: AST(SGOT) 23 U/L (15-37); Alanine Aminotransfer ALT/SGPT 26 U/L (13-56); Albumin, Serum 3.6 g/dL (3.2-5.0); Alkaline Phosphatase 61 U/L (45-117); Anion Gap 1 (5-15); BUN 14 mg/dL (7-18); Chloride 106 mmol/L (98-107); Creatinine, Serum 0.67 mg/dL (0.55-1.02); EST Glomerular Filtration Rate 97 mL/min (>60); Est Glom Filt Rate - Afr Amer 118 mL/min (>60); Globulin 3.5 g/dL (2.2-4.2); Glucose 86 mg/dL (74-106); Potassium 4.5 mmol/L (3.5-5.1); Protein, Total 7.1 g/dL (6.4-8.2); Sodium Level 137 mmol/L (136-145)
[2024-04-12 08:08] LABS: Complement C3 85 mg/dL (82-167)
[2024-04-12 13:55] LABS: Pathologist Review Reviewed
== END | disposition home or self-care (01) ==
LOC: MTLAB 09:09
PROVIDERS: PCP Family Medicine; Referring Provider Internal Medicine Rheumatology; Visit Provider Internal Medicine Rheumatology
DX: M32.9 Systemic lupus erythematosus, unspecified (principal); M06.4 Inflammatory polyarthropathy; Z79.899 Other long term (current) drug therapy; R76.8 Other specified abnormal immunological findings in serum
CPT/HCPCS: 36415; 80053; 81002; 82570; 84156; 85025; 86160

== ENCOUNTER → 2024-05-13 | Outpatient (CLI) | payer BC, SELFPAY ==
[2024-05-13 10:12] LABS: Absolute Neutrophil Count 1.5 X10^3/uL (2.0-7.7); Basophil# 0.03 X10^3/uL; Eosinophil# 0.07 X10^3/uL; Eosinophils% 2.4 % (0-5); Hematocrit 41.6 % (37-47); Hemoglobin 13.2 g/dL (12.0-15.0); Lymphocyte % 31.4 % (19-41); Mean Corp Hgb Conc 31.7 g/dL (32-36); Mean Corpuscular Hgb 31.7 pg (27.0-32.0); Mean Corpuscular Volume 99.8 fL (81-99); Mean Platelet Vol. 11.2 fl (6.2-12.0); Monocyte# 0.34 X10^3/uL; Monocyte% 11.8 % (0-10); NRBC Flagged by Analyzer 0 % (0-5); Neutrophil # 1.53 X10^3/uL (2.7-7.7); Neutrophil % 53.4 % (47-70); Platelet Count 180 K/mm3 (150-450); RBC Distribution Width CV 12.7 % (11.6-14.6); RBC Distribution Width SD 46.4 fl (35.1-43.9); Red Blood Count 4.17 M/mm3 (4.2-5.4); White Blood Count 2.9 K/mm3 (4.4-11.0)
[2024-05-13 10:17] LABS: Glucose, Dipstick Normal (Normal); Ketone-Dipstick Negative (Negative); Leukocyte Esterase-Dipstick 25 /ul (Negative); Nitrite-Dipstick Negative (Negative); Occult Blood-Urine Negative /ul (Negative); Protein-Dipstick Negative (Negative); Urine Bilirubin Dipstick Negative (Negative); Urine Urobilinogen Normal (Normal)
[2024-05-13 10:20] LABS: Color, Urine Yellow (Yellow); Urine Clarity Clear (Clear)
[2024-05-13 10:22] LABS: ALB/GLOB Ratio 1.1 RATIO (0.9-2.4); AST(SGOT) 18 U/L (15-37); Alanine Aminotransfer ALT/SGPT 19 U/L (13-56); Albumin, Serum 3.7 g/dL (3.2-5.0); Alkaline Phosphatase 59 U/L (45-117); Anion Gap 7 (5-15); BUN 18 mg/dL (7-18); Calcium,Total 9.1 mg/dL (8.5-10.1); Chloride 104 mmol/L (98-107); Creatinine, Serum 0.82 mg/dL (0.55-1.02); EST Glomerular Filtration Rate 77 mL/min (>60); Est Glom Filt Rate - Afr Amer 93 mL/min (>60); Globulin 3.5 g/dL (2.2-4.2); Glucose 80 mg/dL (74-106); Potassium 4.2 mmol/L (3.5-5.1); Protein, Total 7.2 g/dL (6.4-8.2); Sodium Level 138 mmol/L (136-145)
[2024-05-13 10:34] LABS: Protein, Urine (Random) 13.8 mg/dL (<11.9); Protein:Creat Ratio 145 mg/g CRE (0-200)
[2024-05-14 09:08] LABS: Complement C3 82 mg/dL (82-167)
[2024-05-16 16:07] LABS: Anti-dsDNA Ab 30 IU/mL (0-9)
== END | disposition home or self-care (01) ==
LOC: MTLAB 07:41
PROVIDERS: PCP Family Medicine; Referring Provider Internal Medicine Rheumatology; Visit Provider Internal Medicine Rheumatology
DX: M32.9 Systemic lupus erythematosus, unspecified (principal); M06.4 Inflammatory polyarthropathy; Z79.899 Other long term (current) drug therapy; R76.8 Other specified abnormal immunological findings in serum
CPT/HCPCS: 36415; 80053; 81002; 82570; 84156; 85025; 86160; 86225

== ENCOUNTER → 2024-08-02 | Outpatient (CLI) | payer BC, SELFPAY ==
[2024-08-02 10:09] LABS: Color, Urine Yellow (Yellow); Glucose, Dipstick Normal (Normal); Ketone-Dipstick Negative (Negative); Leukocyte Esterase-Dipstick Negative /ul (Negative); Nitrite-Dipstick Negative (Negative); Occult Blood-Urine Negative /ul (Negative); Protein-Dipstick 15 mg/dl (Negative); Urine Bilirubin Dipstick Negative (Negative); Urine Clarity Clear (Clear); Urine Urobilinogen Normal (Normal)
[2024-08-02 10:10] LABS: Absolute Lymphocyte Count 1.01 X10^3/uL (0.83-4.51); Absolute Neutrophil Count 1.4 X10^3/uL (2.0-7.7); Basophil# 0.03 X10^3/uL; Eosinophil# 0.12 X10^3/uL; Eosinophils% 4.1 % (0-5); Hematocrit 38.7 % (37-47); Hemoglobin 12.7 g/dL (12.0-15.0); Lymphocyte # 1.01 X10^3/ul (0.83-4.51); Lymphocyte % 34.7 % (19-41); Mean Corp Hgb Conc 32.8 g/dL (32-36); Mean Corpuscular Volume 97.5 fL (81-99); Mean Platelet Vol. 10.9 fl (6.2-12.0); Monocyte# 0.36 X10^3/uL; Monocyte% 12.4 % (0-10); NRBC Flagged by Analyzer 0 % (0-5); Neutrophil # 1.39 X10^3/uL (2.7-7.7); Neutrophil % 47.8 % (47-70); Platelet Count 158 K/mm3 (150-450); RBC Distribution Width CV 12.1 % (11.6-14.6); RBC Distribution Width SD 44.1 fl (35.1-43.9); Red Blood Count 3.97 M/mm3 (4.2-5.4); White Blood Count 2.9 K/mm3 (4.4-11.0)
[2024-08-02 10:39] LABS: Protein, Urine (Random) 8.9 mg/dL (0.0-12.0); Protein:Creat Ratio 100 mg/g CRE (0-200)
[2024-08-02 11:15] LABS: ALB/GLOB Ratio 1.5 RATIO (0.9-2.4); AST(SGOT) 26 U/L (<=31); Alanine Aminotransfer ALT/SGPT 14 U/L (<=34); Albumin, Serum 3.9 g/dL (3.5-5.0); Alkaline Phosphatase 56 U/L (35-104); Anion Gap 11 (5-15); BUN 13 mg/dL (4-19); BUN/Creat Ratio 17.1 RATIO (10-20); Calcium,Total 8.9 mg/dL (7.6-11.0); Carbon Dioxide 22.5 mmol/L (21.0-32.0); Chloride 104 mmol/L (98-108); Creatinine, Serum 0.76 mg/dL (0.70-1.20); EST Glomerular Filtration Rate 92 (>60); Globulin 2.7 g/dL (2.2-4.2); Glucose 81 mg/dL (70-99); Potassium 4.2 mmol/L (3.3-5.1); Protein, Total 6.6 g/dL (5.9-8.4); Sodium Level 137 mmol/L (133-145); Total Bilirubin 0.29 mg/dL (0.00-1.30)
[2024-08-03 05:07] LABS: Complement C3 72 mg/dL (82-167)
[2024-08-03 12:08] LABS: Anti-dsDNA Ab 26 IU/mL (0-9)
== END | disposition home or self-care (01) ==
LOC: MTLAB 07:21
PROVIDERS: PCP Family Medicine; Referring Provider Internal Medicine Rheumatology; Visit Provider Internal Medicine Rheumatology
DX: M32.9 Systemic lupus erythematosus, unspecified (principal); M06.4 Inflammatory polyarthropathy; Z79.899 Other long term (current) drug therapy; R76.8 Other specified abnormal immunological findings in serum; G56.03 Carpal tunnel syndrome, bilateral upper limbs
CPT/HCPCS: 36415; 80053; 81002; 82570; 84156; 85025; 86160; 86225

== ENCOUNTER → 2024-10-05 | Outpatient (CLI) | payer BC, SELFPAY ==
--- OUTSIDE RECORDS SUMMARY | 2024-10-05 07:07 | XMS RPT_ITS | CCD ---
Author Organization [facility] Informat ion Partnership [facility] Care Team Providers Care Family And Consumer Science Professor Name Role Phone Jayce Khan Attending Unavailable Jayce Khan Primary Care Unavailable Jayce Khan Admitting Unavailable Jayce Khan Attending Unavailable Jayce Khan Primary Care Unavailable Ruben Elizondo Admitting Unavailable Ruben Elizondo Attending Unavailable Roosevelt Carter [facility] Care Unavailable Emma Roosevelt Michael Primary Care Provider Furnchava, [facility] Primary Care Provider EVELYN SUAREZ Admitting Unavailab le DANIELA, EVELYN VILLANUEVA Attending Unavailab le FURNESS, [facility] Primary Care Unavai lable DANIELA, EVELYN VILLANUEVA Admitting Unavailab le DANIELA, EVELYN VILLANUEVA Attending Unavailab le FURNESS, [facility] Primary Care Unavai lable FURNESS, [facility] Primary Care Unavai lable DANIELA, EVELYN VILLANUEVA Admitting Unavailab le DANIELA, EVELYN VILLANUEVA Referring Unavailab le DANIELA, EVELYN VILLANUEVA Admitting Unavailab le DANIELA, EVELYN VILLANUEVA Referring Unavailab le FURNESS, [facility] Primary Care Unavai ASHOK Alvarado Referring Unavailable CORDASCOGIL Admitting Unavail able CORDASCOGIL Attending Unavail able FURNESS, [facility] Care Unavai lable FURNESS, [facility] Care Unavailable ASHOK SOTOMAYOR Attending Unavailable CUMMINGSDASHA GREGORY Referring Unavailable FURNESS, [facility] Care Unavai lable DASHA CUMMINGS Admitting Unavailable DASHA CUMMINGS Referring Unavailable FURNESS, [facility] Care DANICA Freeman Attending Unavailable CUMMINGS, DASHA POWERS Attending Unavailable FURNESS, [facility] Primary Care Unajamaal SUAREZ, EVELYN VILLANUEVA Attending Unavailab le FURNESS, [facility] Primary Care Unavai labigor SUAREZ, EVELYN VILLANUEVA Attending Unavailab le FURNESS, [facility] Primary Care Unajamaal CUMMINGS, DASHA POWERS Attending Unavailable FURNESS, [facility] Primary Care UnaDASHA Mercado Admitting Unavailable CUMMINGSDASHA Referring Unavailable FURNESS, [facility] Primary Care Unavai lable Furness, Roosevelt T Unavailable Unavailable Unavailable Self, Referral Referring Unavailable FURNESS, ROOSEVELT T Attending Unavailable FURNESS, ROOSEVELT T Primary Care Unavailable FURNESS, ROOSEVELT T Referring Unavailable FURNESS, ROOSEVELT T Attending Unavailable FURNESS, ROOSEVELT T Primary Care Unavailable Furness , Roosevelt T Primary Care Provider Furness Roosevelt AMARAL T Unavailable FURNESS, ROOSEVELT Watt Referring Unavailable FURNESS, ROOSEVELT T Primary Care Unavailable FURNESS, ROOSEVELT T Primary Care Unavailable FURNESS, ROOSEVELT T Primary Care Unavailable FURNESS, ROOSEVELT T Primary Care Unavailable Vellanki, Milady Referring Unavailable Vellanki, Milady Attending Unavailable Furness, Roosevelt Primary Care Unavailable Vellanki, Milady Referring Unavailable Furness, Roosevelt Primary Care Unavailable VellankiMilady Attending Unavailable Vellanki, Milady Attending Unavailable Furness, Roosevelt Primary Care Unavailable Vellanki, Milady Referring Unavailable Furness, Roosevelt Primary Care Unavailable Vellanki, Milady Referring Unavailable Vellanki, Milady Attending Unavailable Furness, Roosevelt Primary Care Unavailable Deirdre Marin Attending Unavailable Deirdre Marin Referring Unavailable Furness, Roosevelt Primary Care Unavailable Vellanki, Milady Referring Unavailable Vellanki, Milady Attending Unavailable Ramon Dumont Referring Unavailable Furness, Roosevelt Primary Care Unavailable Ramon Dumont Attending Unavailable Vellanki, Milady Referring Unavailable Vellanki, Milady Attending Unavailable Furness, Roosevelt Primary Care Unavailable Furness Roosevelt AMARAL T Primary Care Provider Roosevelt Carter MD Unavailable [phone] ROOSEVELT CARTER Attending Unavailable ROOSEVELT CARTER Primary Care Unavailable Allergies Allergy Classification Reported Allergen(s) Allergy Type Date of Onset Reaction(s) Facility Lidocaine (2 sources) Lidocaine; Translations: [lidocaine] Drug Allergy [place] [place]: Macrolides (antibiotic) (2 sources) Azithromycin; Translations: [Zithromax] Drug Allergy Diarrhea, Abdominal pain [place] [place]: Penicillins (antibiotic) (2 sources) Amoxicillin; Translations: [amoxicillin] Drug Allergy Hives [facility] Work Phone: (20 sources) Amoxicillin; Translations: [amoxicillin] Drug Allergy 05-10-19 Hives, Rash, Unknown [facility] Repository (6 sources) Azithromycin; Translations: [Zithromax] Drug Allergy Diarrhea, Abdominal pain [facility] Repository (20 sources) Azithromycin; Translations: [AZITHROMYCIN] Drug Allergy 11-07-19 Diarrhea [facility] (13 sources) Penicillins; Translations: [PENICILLINS] Propensity to adverse reactions to drug 11-07-19 Hives [facility] (19 sources) Bee Venom Protein (Honey Bee); Translations: [BEE VENOM PROTEIN (HONEY BEE)] Propensity to adverse reactions to drug 11-07-19 Other [facility] (13 sources) Sulfamethoxazole / Trimethoprim; Translations: [SULFAMETHOXAZOLE-T RIMETHOPRIM] Drug Allergy 02-24-20 20 Itching [facility] (2 sources) Lidocaine Drug Allergy 03-10-20 20 Other (See Comments) [facility] (20 sources) Lidocaine; Translations: [lidocaine] Drug Allergy 05-10-19 Anaphylaxis [facility] (1 source) Azithromycin Drug Allergy 05-10-19 [facility] Repository (1 source) Lidocaine Drug Allergy 05-10-19 [facility] Repository Medications Current Medications Medication Drug Class(es) Dates Sig (Normalized) Sig (Original) 1 ml belimumab 200 mg/ml auto-injector (11 sources) B Lymphocyte Stimulator-specif ic Inhibitor Start: 08-27-2020 End: 09-26-2024 Benlysta 200 mg/mL injection Inject under the skin. 08/27/2020 09/26/2024 Discontinued (Therapy completed) Cats Claw (13 sources) Start: 05-10-2020 take 500 mg by mouth once daily Cats Claw Active 500 MG PO DAILY May 10, 2020 2:52pm Start: 05-10-2020 take 500 mg by mouth once yamilet y Cats Claw Active 500 MG PO DAILY May 10, 2020 12:00am Start: 05-10-2020 take 500 mg by mouth once yamilet y Cats Claw Active 500 MG PO DAILY May 10, 2020 1:00am cetirizine hydrochloride 10 mg oral capsule (13 sources) Histamine-1 Receptor Antagonist Start: 05-10-2020 take 10 mg by mouth once daily Cetirizine Active 10 MG PO DAILY May 10, 2020 1:00am cholecalciferol 0.05 mg oral tablet (13 sources) Vitamin D Start: 05-10-2020 take 2000 [IU] by mouth once daily Cholecalciferol (Vitamin D3) Active 2000 UNIT PO DAILY May 10, 2020 1:00am ciprofloxacin 500 mg oral tablet (2 sources) [...] . 24 capsule 2 02/26/2020 03/27/2020 Active Start: 02-25-2020 End: 02-26-2020 diphenhydrAMINE (BENADRYL) 1 2.5 mg/5 mL liquid 25 mg doxycycline hyclate 50 mg oral tablet (4 sources) Tetracycline-class Drug Start: 11-03-2022 End: 11-17-2022 take 1 tablet by mouth twice daily doxycycline (Vibra-Tabs) 50 mg tablet Indications: Routine general medical examination at a health care facility Take 1 tablet (50 mg) by mouth 2 times a day for 14 days. Take with a full glass of water and do not lie down for at least 30 minutes after. 20 tablet 0 11/03/2022 11/17/2022 Active Start: 01-03-2022 End: 10-09-2022 take 1 tablet by mouth twice daily doxycycline (Vibra-Tabs) 100 mg tablet Indications: Hordeolum externum of left upper eyelid Take 1 tablet (100 mg) by mouth 2 times a day for 7 days. 14 tablet 0 10/02/2022 10/09/2022 Active 84 hr estradiol 0.70376 mg/hr transdermal system (1 source) Estrogen Start: 09-10-2024 estradiol (Vivelle-DOT) 0.0375 mg/24 hr 09/10/2024 Active gabapentin 300 mg oral capsule (14 sources) Anti-epileptic Agent Start: 08-31-2020 take 1 capsule by mouth once daily at bedtime gabapentin (Neurontin) 300 mg capsule Take 1 capsule (300 mg) by mouth once daily at bedtime. 08/31/2020 Active Start: 03-06-2020 gabapentin (NE URONTIN) 300 MG capsule End: 08-31-2020 Gabapentin 300 MG TABS Quant ity: 0 Refills: 0 Ordered: 31-Aug-2020 DO End : 31-Aug-2020 Complete hydroxychloroquine sulfate 200 mg oral tablet (20 sources) Antimalarial, Antirheumatic Agent Start: 03-06-2020 take 1 tablet by mouth twice daily, then take 1 tablet by mouth twice daily at mealtime hydroxychloroquine (PlaqueniL) 200 mg tablet Take 1 tablet (200 mg) by mouth twice a day. TAKE 1 TABLET TWICE DAILY WITH FOOD. 03/06/2020 Active Start: 02-25-2020 End: 02-26-2020 take 400 mg by mouth twice daily 400 mg, Oral, 2 times daily, First dose on 02/25/20 at 2230 Indication: SLE take 2 tablets by mo uth twice daily hydrOXYchloroQUINE (PLAQUENIL) 200 mg tablet Indications: discoid lupus erythematosus , systemic lupus erythematosus Take 400 mg by mouth 2 (two) times a day Reasons: disease that causes disc-shaped patches on upper body, systemic lupus erythematosus, an autoimmune disease. 0 Active take 1 tablet by frances th once daily hydrOXYchloroQUINE (PLAQUENIL) 200 mg tablet Take 200 mg by mouth daily . 0 Active meloxicam 7.5 mg oral tablet (20 sources) Nonsteroidal Anti-inflammatory Drug Start: 05-10-2020 take 1-2 tablets by mouth once daily Meloxicam Active 7.5 MG PO DAILY May 10, 2020 1:00am 1-2 tablets Start: 02-25-2020 End: 02-26-2020 take 7.5 mg by mouth twice daily at mealtime for pain 7.5 mg, Oral, 2 times daily PRN, pain, Starting 02/25/20 at 2230 Give with Food Start: 08-15-2019 End: 02-05-2020 take 1-2 tablets by mouth once daily Meloxicam 7.5 MG Oral Tablet TAKE 1 TO 2 TABLETS DAILY. Quantity: 30 Refills: 1 Ordered: 15-Aug-2019 Roosevelt Carter MD Start : 15-Aug-2019 Active methylPREDNISolone (1 source) Corticosteroid Start: 11-07-2019 End: 11-14-2019 methylPREDNISolone (MEDROL DOSEPACK) 4 mg tablet follow package directions . 21 tablet 0 11/07/2019 11/14/2019 Active Multivitamin preparation (13 sources) Start: 05-10-2020 Multivitamin A ctive 1 EACH PO DAILY May 10, 2020 2:52pm Start: 05-10-2020 Multivitamin A ctive 1 EACH PO DAILY May 10, 2020 12:00am Start: 05-10-2020 Multivitamin A ctive 1 EACH PO DAILY May 10, 2020 1:00am mycophenolate mofetil 500 mg oral tablet (11 sources) Start: 06-01-2020 End: 09-26-2024 take 1 tablet by mouth twice daily mycophenolate (CellCept) 500 mg tablet Take 1 tablet (500 mg) by mouth 2 times a day. 06/01/2020 09/26/2024 Discontinued (Therapy completed) naproxen sodium 220 mg oral capsule (13 sources) Nonsteroidal Anti-inflammatory Drug Start: 05-10-2020 take 220 mg by mouth every twelve hours Naproxen Sodium Active 220 MG PO Q12H May 10, 2020 1:00am [place]-3 Fatty Acids-Fish Oil (13 sources) Start: 05-10-2020 [place]-3 Fatty Acids-Fish Oil Active 1 EACH PO DAILY May 10, 2020 2:52pm Start: 05-10-2020 [place]-3 Fatty Acids-Fish Oil Active 1 EACH PO DAILY May 10, 2020 12:00am Start: 05-10-2020 [place]-3 Fatty Acids-Fish Oil Active 1 EACH PO DAILY May 10, 2020 1:00am pantoprazole 40 mg delayed release oral tablet (1 source) Proton Pump Inhibitor Start: 08-29-2020 End: 08-31-2020 Pantoprazole Sodium 40 MG Oral Tablet Delayed Release Quantity: 30 Refills: 0 Ordered: 29-Aug-2020 DO Start : 29-Aug-2020 End : 31-Aug-2020 Complete prednisolone acetate, micro (prednisoLONE ac, micro, bulk,) 100 % Powd (2 sources) prednisolone melodie hoffman, micro (prednisoLONE ac, micro, bulk,) 100 % Powd Take 40 mg by mouth daily . 0 Active predniSONE 10 mg oral tablet (20 sources) Start: 10-02-2022 End: 11-03-2022 predniSONE (Deltasone) 5 mg tablet Indications: Hordeolum externum of left upper eyelid Take 1-2 pills daily as directed. 42 tablet 0 10/02/2022 11/03/2022 Discontinued (Reorder) Start: 05-10-2020 predniSONE (De ltasone) 10 mg tablet Indications: Routine general medical examination at a health care facility Take 1-2 pills daily as directed. 60 tablet 1 11/03/2022 Active Start: 05-10-2020 take 10 mg by mouth three times daily Prednisone Active 10 MG PO THREE TIMES A DAY May 10, 2020 1:00am Start: 02-26-2020 End: 02-26-2020 predniSONE (DELTASONE) table t 30 mg take 3 tablets by mo uth once daily predniSONE 10 MG Oral Tablet TAKE 3 TABLET Daily Quantity: 0 Refills: 0 Ordered: 19-Jul-2020 DO Active predniSONE (DELT ASONE) 20 MG tablet Take 30 mg by mouth daily . 0 Active progesterone 200 mg oral capsule (1 source) Progesterone Start: 05-26-2024 progesterone (Prometrium) 200 mg capsule 05/26/2024 Active 72 hr scopolamine 0.0139 mg/hr transdermal system (2 sources) Anticholinergic Start: 08-25-2024 End: 11-25-2024 scopolamine (Transderm-Scop) 1 mg over 3 days patch 3 day Indications: Routine general medical examination at a health care facility Place 1 patch over 72 hours on the skin every 3rd day if needed (nausea). 4 patch 2 09/26/2024 11/25/2024 Active traMADol hydrochloride 50 mg oral tablet (13 sources) Opioid Agonist Start: 05-10-2020 take 50 mg by mouth once daily Tramadol Active 50 MG PO DAILY May 10, 2020 1:00am Turmeric Root Extract (13 sources) Start: 05-10-2020 take 500 mg by mouth once daily Turmeric Root Extract Active 500 MG PO DAILY May 10, 2020 2:52pm Start: 05-10-2020 take 500 mg by mouth once yamilet y Turmeric Root Extract Active 500 MG PO DAILY May 10, 2020 12:00am Start: 05-10-2020 take 500 mg by mouth once yamilet y Turmeric Root Extract Active 500 MG PO DAILY May 10, 2020 1:00am Vitamin B Complex (13 sources) Start: 05-10-2020 Vitamin B Comp shubham Active 1 EACH PO DAILY May 10, 2020 2:52pm Start: 05-10-2020 Vitamin B Comp shubham Active 1 EACH PO DAILY May 10, 2020 12:00am Start: 05-10-2020 Vitamin B Comp shubham Active 1 EACH PO DAILY May 10, 2020 1:00am Vitamins A,C,And E-Selenium (13 sources) Start: 05-10-2020 Vitamins A,C,A nd E-Selenium Active 1 EACH PO DAILY May 10, 2020 2:52pm Start: 05-10-2020 Vitamins A,C,A nd E-Selenium Active 1 EACH PO DAILY May 10, 2020 12:00am Start: 05-10-2020 Vitamins A,C,A nd E-Selenium Active 1 EACH PO DAILY May 10, 2020 1:00am Completed/Discontinued Medications Medication Drug Class(es) Dates Sig (Normalized) Sig (Original) [id number] 200 actuat albuterol 0.09 mg/actuat metered dose inhaler (5 sources) beta2-Adrenergic Agonist Start: 07-19-2020 take 2 puff(s) by inhalation four times daily as needed Ventolin HFA 108 (90 Base) MCG/ACT Inhalation Aerosol Solution INHALE 2 PUFFS 4 times daily PRN shortness of breath Quantity: 1 Refills: 0 Ordered: 20-Jul-2020 Joseadarsh PIERRE Ashok Start : 19-Jul-2020 Active alendronic acid 70 mg oral tablet (5 sources) Bisphosphonate Start: 06-29-2020 take 1 tablet by mouth every week Alendronate Sodium 70 MG Oral Tablet take 1 tablet by mouth every week Quantity: 12 Refills: 3 Ordered: 29-Jun-2020 Roosevelt Carter MD Start : 29-Jun-2020 Active chlorhexidine gluconate 1.2 mg/ml mouthwash (1 source) Start: 02-25-2020 End: 02-26-2020 chlorhexidine (PERIDEX) 0.12 % solution 15 mL 1 ml dexamethasone phosphate 4 mg/ml injection (1 source) Corticosteroid Start: 02-25-2020 End: 02-26-2020 dexamethasone (DECADRON) injection 4 mg docusate sodium 50 mg / sennosides, halfway 8.6 mg oral tablet (1 source) Start: [...] Ordered: 26-Mar-2020 DO Start : 26-Mar-2020 Active naloxone (NARCAN) injection 0.1 mg (1 source) Start: 02-25-2020 End: 02-26-2020 naloxone (NARCAN) injection 0.1 mg Probiotic Formula CAPS (6 sources) Probiotic Formul a CAPS Quantity: 0 Refills: 0 Ordered: 19-Jul-2020 DO Active Sodium Chloride (1 source) Start: 02-25-2020 End: 02-26-2020 sodium chloride (PF) (NS) flush 5 mL triamcinolone acetonide 10 mg/ml injectable suspension (1 source) Corticosteroid Start: 12-29-2019 End: 12-29-2019 triamcinolone acetonide (KENALOG) injection 20 mg Turmeric Curcumin Oral Capsule (6 sources) Turmeric Curcumi n Oral Capsule Quantity: 0 Refills: 0 Ordered: 19-Jul-2020 DO Active Vitamin D TABS (6 sources) Vitamin D TABS Quantity: 0 Refills: 0 Ordered: 19-Jul-2020 DO Active Problems Active Problems Problem Classification Problem Date Documented Date Episodic/Chronic Immunizations and screening for infectious disease (20 sources) Patient encounter status; Translations: [Other specified vaccination] 09-28-2023 Episodic Inflammation; infection of eye (except that caused by tuberculosis or sexually transmitteddisease) (1 source) Hordeolum externum of upper eyelid of left eye; Translations: [Hordeolum externum left upper eyelid] 10-02-2022 Episodic Malaise and fatigue (2 sources) Chronic fatigue, unspecified; Translations: [Chronic fatigue, unspecified] Onset: 11-13-2023 Chronic Menopausal disorders (4 sources) Menopausal and female climacteric states; Translations: [Other specified menopausal and perimenopausal disorders] Onset: 11-13-2023 Chronic Other injuries and conditions due to external causes (2 sources) Motion sickness; Translations: [Motion sickness, initial encounter] Onset: 09-26-2024 09-26-2024 Episodic Other injuries and conditions due to external causes (1 source) Motion sickness, initial encounter; Translations: [Motion sickness, initial encounter] Onset: 09-26-2024 Episodic Other nervous system disorders (1 source) [...] syndrome of left wrist] Onset: 12-23-2019 12-23-2019 Other nutritional; endocrine; and metabolic disorders (2 sources) Abnormal weight gain; Translations: [Abnormal weight gain] Onset: 11-13-2023 Episodic Other screening for suspected conditions (not mental disorders or infectious disease) (4 sources) Encounter for screening mammogram for malignant neoplasm of breast; Translations: [Encounter for screening for malignant neoplasm of colon] Onset: 09-30-2023 Episodic Residual codes; unclassified (2 sources) History of decompression of median nerve; Translations: [S/P carpal tunnel release] Episodic Residual codes; unclassified (4 sources) Past history of procedure; Translations: [Other specified personal history presenting hazards to health] Onset: 09-05-2020 Episodic Rheumatoid arthritis and related disease (18 sources) Rheumatoid arthritis; Translations: [Rheumatoid arthritis] Onset: 10-01-2022 10-01-2022 Chronic Systemic lupus erythematosus and connective tissue disorders (20 sources) Systemic lupus erythematosus; Translations: [Systemic lupus erythematosus] Onset: 10-01-2022 10-01-2022 Chronic Past or Other Problems Problem Classification Problem Date Documented Da te Episodic/Chronic Nonspecific chest pain (11 sources) Chest wall pain; Translations: [Painful respiration] Onset: 10-01-2022 Resolved: 11-03-2022 10-01-2022 Episodic Other lower respiratory disease (11 sources) Nodule of lung; Translations: [Solitary pulmonary nodule] Onset: 10-01-2022 Resolved: 11-03-2022 10-01-2022 Episodic Other upper respiratory infections (6 sources) Sore throat symptom; Translations: [Acute pharyngitis] Onset: 10-01-2022 Resolved: 11-03-2022 10-01-2022 Episodic Respiratory failure; insufficiency; arrest (adult) (4 sources) Respiratory failure; Translations: [Respiratory failure (HCC)] Onset: 02-25-2020 02-25-2020 Episodic Unclassified (3 sources) Onset: 09-28-2023 Resolved: 09-26-2024 09-28-2023 Results Test Name Value Interpretation Reference Range Facility BASIC METABOLIC PANEL WITH A NION GAPon 09-27-2024 BUN/CREATININE RATIO SEE NOTE: Normal 6-22 Ques t Diagnostics Comment on above: Result Comment: Not Reported: BUN and Creatinine are within reference range. Performed By: #### 1 6802, 7600, 83521 #### [facility] [address], [address] [place] [address] Decorator Mannequin: Dada Hathaway MD Calcium [Mass/Vol] 8.9 mg/dL Normal 8.6-10.4 [facility] Comment on above: Performed By: #### 1 6802, 7600, [id number] #### [facility] [address], [address] [place] [address] Decorator Mannequin: Dada Hathaway MD Chloride [Moles/Vol] 105 mmol/L Normal 98-110 [facility] t Diagnostics Comment on above: Performed By: #### 1 680, 7600, [id number] #### [facility] [place] [address] Decorator Mannequin: Dada Hathaway MD CO2 [Moles/Vol] 24 mmol/L Normal 20-32 [facility] Comment on above: Performed By: #### 1 680, 7600, 87098 #### [facility] [place] [address] Decorator Mannequin: Dada Hathaway MD Creatinine [Mass/Vol] 0.62 mg/dL Normal 0.50-1.[address] [facility] [address] [facility] Comment on above: Performed By: #### 1 6802, 7600, 45296 #### [facility] [place] [address] Decorator Mannequin: Dada Hathaway MD ELECTROLYTE BALANCE 7 mmol/L (calc) Normal 7-17 [facility] Comment on above: Performed By: #### 1 6802, 7600, 21656 #### [facility] [place] [address] Decorator Mannequin: Dada Hathaway MD GFR/1.73 sq M.predicted among non-blacks MDRD (S/P/Bld) [Vol rate/Area] 105 mL/min/{1.73_m2} Normal > OR = 60 [facility] Comment on above: Performed By: #### 1 6802, 7600, 60782 #### [facility] of [address], [address] [place] [address] Decorator Mannequin: Dada Hathaway MD Glucose [Mass/Vol] 83 mg/dL Normal 65-99 [facility] Comment on above: Result Comment: Fasting reference interval Performed By: #### 1 6802, 7600, [id number] #### [facility] of [address], [address] [place] [address] Decorator Mannequin: Dada Hathaway MD Potassium [Moles/Vol] 4.2 mmol/L Normal 3.5-5.[address] [facility] [facility] Comment on above: Performed By: #### 1 6802, 7600, 28165 #### [facility] of [address], [address] [place] [address] Decorator Mannequin: Dada Hathaway MD Sodium [Moles/Vol] 136 mmol/L Normal 135-146 [facility] Comment on above: Performed By: #### 1 6802, 7600, 50817 #### [facility] [place] [address] Decorator Mannequin: Dada Hathaway MD Urea nitrogen [Mass/Vol] 14 mg/dL Normal 7-25 [facility] Comment on above: Performed By: #### 1 6802, 7600, 63500 #### [facility] of [place] [address] Decorator Mannequin: Dada Hathaway MD HEMOGLOBIN A1c WITH eAGon eAG (mmol/L) 6.0 mmol/L Normal [facility] Comment on above: Performed By: #### 1 6802, 7600, 06448 #### [facility] of [place] [address] Decorator Mannequin: Dada Hathaway MD HbA1c (Bld) [Mass fraction] 5.4 % Normal <5.7 [facility] Comment on above: Result Comment: For the purpose of screening for the presence of diabetes: <5.7% Consistent with the absence of diabetes 5.7-6.4% Consistent with increased risk for diabetes (prediabetes) > or =6.5% Consistent with diabetes This assay result is consistent with a decreased risk of diabetes. Currently, no consensus exists regarding use of hemoglobin A1c for diagnosis of diabetes in children. According to [place] [employer] (ADA) guidelines, hemoglobin A1c <7.0% represents optimal control in non- diabetic patients. Different metrics may apply to specific patient populations. Standards of Medical Care in Diabetes(ADA). Performed By: #### 1 6802, 7600, 94487 #### [facility] [place] [address] Decorator Mannequin: Dada Hathaway MD Magnesium [Mass/Vol] 108 mg/dL Normal Ques t Diagnostics Comment on above: Performed By: #### 1 6802, 7600, 04303 #### [facility] [address], [address] [place] [address] Decorator Mannequin: Dada Hathaway MD LIPID PANEL, [facility] 09-05 Cholesterol [Mass/Vol] 126 mg/dL Normal <200 Qu est Diagnostics Comment on above: Performed By: #### 1 6802, 7600, 90064 #### [facility] [address], [address] [place] [address] Decorator Mannequin: Dada Hathaway MD Cholesterol in HDL [Mass/Vol] 64 mg/dL Normal > OR = 50 [facility] Comment on above: Performed By: #### 1 6802, 7600, 20865 #### [facility] [place] [address] Decorator Mannequin: Dada Hathaway MD Cholesterol in LDL [Mass/Vol] 49 mg/dL Normal [facility] Comment on above: Result Comment: Refe rence range: <100 Desirable range <100 mg/dL for primary prevention; <70 mg/dL for patients with CHD or diabetic patients with > or = 2 CHD risk factors. LDL-C is now calculated using the Thomas-Ferguson calculation, which is a validated novel method providing better accuracy than the Friedewald equation in the estimation of LDL-C. Thomas SS et al. KEVIN. 2013;310(19): 2132-8390 (http://education.InsureWorx.Scientific Revenue/faq/RZX442) Performed By: #### 1 6802, 7600, 97397 #### [facility] [address], [address] [place] [address] Decorator Mannequin: Dada Hathaway MD Cholesterol.total/Stefani sterol in HDL [Mass ratio] 2.0 {ratio} Normal <5.0 [facility] Comment on above: Performed By: #### 1 6802, 7600, 34975 #### [facility] [address], [address] [place] [address] Decorator Mannequin: Dada Hathaway MD NON HDL CHOLESTEROL 62 mg/dL (calc) Normal <130 [facility] Comment on above: Result Comment: For patients with diabetes plus 1 major ASCVD risk factor, treating to a non-HDL-C goal of <100 mg/dL (LDL-C of <70 mg/dL) is considered a therapeutic option. Performed By: #### 1 6802, 7600, 36337 #### [facility] [address], [address] [place] [address] Decorator Mannequin: Dada Hathaway MD Triglyceride [Mass/Vol] 47 mg/dL Normal <150 [facility] Comment on above: Performed By: #### 1 6802, 7600, 21335 #### [facility] [place] [address] Decorator Mannequin: Dada Hathaway MD Anti-dsDNA Abon 08-03-2024 ANTI-DNA (DS)AB 26 IU/mL Abnormal 0-9 [facility] Comment on above: Result Comment: Nega tive <5 Equivocal 5 - 9 Positive >9 Performed at: [address] [id number] Picker Feeder: Pacheco Gramajo PhD, Phone: [phone] Performed By: #### L 500.4050, L3100.5700, L400.2010, L3100.5500, L501.0900, L100.0100, L3100.5800 #### [facility] [address] [place], [address] Complement C3on 08-03-2024 COMP C3 72 mg/dL Low 82-167 [facility] Comment on above: Result Comment: Perf ormed at: [facility] [address] [id number] Picker Feeder: Pacheco Gramajo PhD, Phone: [phone] Performed By: #### L 500.4050, L3100.5700, L4, L3100.5500, L501.0900, L100.0100, L3100.5800 #### [facility] [address] [place], [place], [phone] Complement C4on 08-03-2024 COMPLEMENT, C4 9 mg/dL Low 12-38 [facility] Comment on above: Performed By: #### L 500.4050, L3100.5700, L4.2010, L3100.5500, L501.0900, L100.0100, L3100.5800 #### [facility] [address] [place], [address] CBC W/Diff, Automatedon 04- Absolute Lymph 1.01 X10 3/uL Normal 0.83-4.51 [facility] Comment on above: Performed By: #### L 500.4050, L3100.5700, L400.2010, L3100.5500, L501.0900, L100.0100, L3100.5800 #### [facility] [address] [place], [address] Absolute Neut 1.4 X10 3/uL Low 2.0-7.7 [facility] Comment on above: Performed By: #### L 500.4050, L3100.5700, L400.2010, L3100.5500, L501.0900, L100.0100, L3100.5800 #### [facility] [address] [place], [address] Basophils/100 WBC (Bld) 1.0 % Normal 0-1 [facility] Comment on above: Performed By: #### L 500.4050, L3100.5700, L400.2010, L3100.5500, L501.0900, L100.0100, L3100.5800 #### [facility] [address] [place], [address] Eosinophils/100 WBC (Bld) 4.1 % Normal 0-5 [facility] Comment on above: Performed By: #### L 500.4050, L3100.5700, L400.2010, L3100.5500, L501.0900, L100.0100, L3100.5800 #### [facility] [address] [place], [address] Erythrocyte distribution width (RBC) [Ratio] 12.1 % Normal 11.6-14.6 [facility] Comment on above: Performed By: #### L 500.4050, L3100.5700, L400.2010, L3100.5500, L501.0900, L100.0100, L3100.5800 #### [facility] [address] [place], [address] Hematocrit (Bld) [Volume fraction] 38.7 % Normal 37-47 [facility] Comment on above: Performed By: #### L 500.4050, L3100.5700, L400.2010, L3100.5500, L501.0900, L100.0100, L3100.5800 #### [facility] [address] [place], [address] Hemoglobin (Bld) [Mass/Vol] 12.7 g/dL Normal 12.0-15.0 [facility] Comment on above: Performed By: #### L 500.4050, L3100.5700, L400.2011, L3100.5500, L501.0900, L100.0100, L3100.5800 #### [facility] [address] [place], [address] IG% 0.000 Normal 0.0-0.9 [facility] Comment on above: Result Comment: IG% - Immature Granulocytes (promyelocytes, myelocytes and metamyelocytes) > 1% indicates that a LEFT SHIFT is Present. Performed By: #### L 500.4050, L3100.5700, L400.2010, L3100.5500, L501.0900, L100.0100, L3100.5800 #### [facility] [address] [place], [address] Lymphocytes/100 WBC (Bld) 34.7 % Normal 19-41 [facility] Comment on above: Performed By: #### L 500.4050, L3100.5700, L400.2010, L3100.5500, L501.0900, L100.0100, L3100.5800 #### [facility] [address] [place], [address] MCH (RBC) [Entitic mass] 32.0 pg Normal 27.0-32.0 [facility] Comment on above: Performed By: #### L 500.4050, L3100.5700, L400.2010, L3100.5500, L501.0900, L100.0100, L3100.5800 #### [facility] [address] [place], [address] MCHC (RBC) [Mass/Vol] 32.8 g/dL Normal 32-36 [facility] Comment on above: Performed By: #### L 500.4050, L3100.5700, L400.2010, L3100.5500, L501.0900, L100.0100, L3100.5800 #### [facility] [address] [place], [address] MCV (RBC) [Entitic vol] 97.5 fL Normal 81-99 [facility] Comment on above: Performed By: #### L 500.4050, L3100.5700, L400.2011, L3100.5500, L501.0900, L100.0100, L3100.5800 #### [facility] [address] [place], [address] Monocytes/100 WBC (Bld) 12.4 % High 0-10 [facility] Comment on above: Performed By: #### L 500.4050, L3100.5700, L400.2010, L3100.5500, L501.0900, L100.0100, L3100.5800 #### [facility] [address] [place], [address] Neutrophils/100 WBC (Bld) 47.8 % Normal 47-70 [facility] Comment on above: Performed By: #### L 500.4050, L3100.5700, L400.2010, L3100.5500, L501.0900, L100.0100, L3100.5800 #### [facility] [address] [place], [address] Nucleated RBC (Bld) [#/Vol] 0 10*3/uL Normal 0-5 [facility] Comment on above: Performed By: #### L 500.4050, L3100.5700, L400.2010, L3100.5500, L501.0900, L100.0100, L3100.5800 #### [facility] [address] [place], [address] Platelet mean volume (Bld) [Entitic vol] 10.9 fL Normal 6.2-12.0 [facility] Comment on above: Performed By: #### L 500.4050, L3100.5700, L400.2010, L3100.5500, L501.0900, L100.0100, L3100.5800 #### [facility] [address] [place], [address] Platelets (Bld) [#/Vol] 158 10*3/uL Normal 150-450 [facility] Comment on above: Performed By: #### L 500.4050, L3100.5700, L400.2011, L3100.5500, L501.0900, L100.0100, L3100.5800 #### [facility] [address] [place], [address] RBC (Bld) [#/Vol] 3.97 10*6/uL Low 4.2-5.4 [facility] Comment on above: Performed By: #### L 500.4050, L3100.5700, L400.2010, L3100.5500, L501.0900, L100.0100, L3100.5800 #### [facility] [address] [place], [address] RDW SD 44.1 fl High 35.1-43.9 [facility] Comment on above: Performed By: #### L 500.4050, L3100.5700, L400.2010, L3100.5500, L501.0900, L100.0100, L3100.5800 #### [facility] [address] [place], [address] WBC (Bld) [#/Vol] 2.9 10*3/uL Low 4.4-11.0 [facility] Comment on above: Performed By: #### L 500.4050, L3100.5700, L400.2010, L3100.5500, L501.0900, L100.0100, L3100.5800 #### [facility] [address] [place], [address] Comprehensive Metabolic Prof [facility] 08-02-2024 Albumin [Mass/Vol] 3.9 g/dL Normal 3.5-5.0 [facility] Comment on above: Performed By: #### L 500.4050, L3100.5700, L400.2010, L3100.5500, L501.0900, L100.0100, L3100.5800 #### [facility] [address] [place], [address] Albumin/Globulin [Mass ratio] 1.5 {ratio} Normal 0.9-2.4 [facility] Comment on above: Performed By: #### L 500.4050, L3100.5700, L400.2010, L3100.5500, L501.0900, L100.0100, L3100.5800 #### [facility] [address] [place], [address] ALK PHOS 56 U/L Normal 35-104 [facility] Comment on above: Performed By: #### L 500.4050, L3100.5700, L400.2010, L3100.5500, L501.0900, L100.0100, L3100.5800 #### [facility] [address] [place], [address] ALT [Catalytic activity/Vol] 14 U/L Normal <=34 [facility] Comment on above: Performed By: #### L 500.4050, L3100.5700, L400.2010, L3100.5500, L501.0900, L100.0100, L3100.5800 #### [facility] [address] [place], [address] AST [Catalytic activity/Vol] 26 U/L Normal <=31 [facility] Comment on above: Performed By: #### L 500.4050, L3100.5700, L400.2010, L3100.5500, L501.0900, L100.0100, L3100.5800 #### [facility] [address] [place], [address] Bilirubin [Mass/Vol] 0.29 mg/dL Normal 0.00-1.30 [facility] Comment on above: Performed By: #### L 500.4050, L3100.5700, L400.2011, L3100.5500, L501.0900, L100.0100, L3100.5800 #### [facility] [address] [place], [address] BUN/CRE 17.1 RATIO Normal 10-20 [facility] Comment on above: Performed By: #### L 500.4050, L3100.5700, L400.2010, L3100.5500, L501.0900, L100.0100, L3100.5800 #### [facility] [address] [place], [address] Calcium [Mass/Vol] 8.9 mg/dL Normal 7.6-11.0 [facility] Comment on above: Performed By: #### L 500.4050, L3100.5700, L400.2010, L3100.5500, L501.0900, L100.0100, L3100.5800 #### [facility] [address] [place], [address] Chloride [Moles/Vol] 104 mmol/L Normal 98-108 [facility] Comment on above: Performed By: #### L 500.4050, L3100.5700, L400.2010, L3100.5500, L501.0900, L100.0100, L3100.5800 #### [facility] [address] [place], [address] CO2 [Moles/Vol] 22.5 mmol/L Normal 21.0-32.0 [facility] Comment on above: Performed By: #### L 500.4050, L3100.5700, L400.2010, L3100.5500, L501.0900, L100.0100, L3100.5800 #### [facility] [address] [place], [address] Creatinine [Mass/Vol] 0.76 mg/dL Normal 0.70-1.20 [facility] Comment on above: Performed By: #### L 500.4050, L3100.5700, L400.2011, L3100.5500, L501.0900, L100.0100, L3100.5800 #### [facility] [address] [place], [address] GAP 11 Normal 5-15 [facility] Comment on above: Performed By: #### L 500.4050, L3100.5700, L400.2010, L3100.5500, L501.0900, L100.0100, L3100.5800 #### [facility] [address] [place], [address] GFR/1.73 sq M.predicted among non-blacks MDRD (S/P/Bld) [Vol rate/Area] 92 mL/min/{1.73_m2} Normal >60 [facility] Comment on above: Result Comment: mL/m in/1.73m2 CKD-EPI Creatinine Equation (2020) Performed By: #### L 500.4050, L3100.5700, L400.2010, L3100.5500, L501.0900, L100.0100, L3100.5800 #### [facility] [address] [place], [address] Globulin (S) [Mass/Vol] 2.7 g/dL Normal 2.2-4.2 [facility] Comment on above: Performed By: #### L 500.4050, L3100.5700, L400.2010, L3100.5500, L501.0900, L100.0100, L3100.5800 #### [facility] [address] [place], [address] Glucose [Mass/Vol] 81 mg/dL Normal 70-99 [facility] Comment on above: Performed By: #### L 500.4050, L3100.5700, L400.2010, L3100.5500, L501.0900, L100.0100, L3100.5800 #### [facility] [address] [place], [address] Potassium [Moles/Vol] 4.2 mmol/L Normal 3.3-5.1 [facility] Comment on above: Performed By: #### L 500.4050, L3100.5700, L400.2010, L3100.5500, L501.0900, L100.0100, L3100.5800 #### [facility] [address] [place], [address] Sodium [Moles/Vol] 137 mmol/L Normal 133-145 [facility] Comment on above: Performed By: #### L 500.4050, L3100.5700, L400.2010, L3100.5500, L501.0900, L100.0100, L3100.5800 #### [facility] [address] [place], [address] T PROT 6.6 g/dL Normal 5.9-8.4 [facility] Comment on above: Performed By: #### L 500.4050, L3100.5700, L400.2010, L3100.5500, L501.0900, L100.0100, L3100.5800 #### [facility] [address] [place], [address] Urea nitrogen [Mass/Vol] 13 mg/dL Normal 4-19 [facility] Comment on above: Performed By: #### L 500.4050, L3100.5700, L400.2010, L3100.5500, L501.0900, L100.0100, L3100.5800 #### [facility] [address] [place], [address] Protein+Creatinine Ratio,Uri neon 08-02-2024 PROT:CRE RATIO 100 mg/g CRE Normal 0-200 [facility] Comment on above: Performed By: #### L 500.4050, L3100.5700, L400.2011, L3100.5500, L501.0900, L100.0100, L3100.5800 #### [facility] [address] [place], [address] Protein (U) [Mass/Vol] 8.9 mg/dL Normal 0.0-12.0 [facility] Comment on above: Performed By: #### L 500.4050, L3100.5700, L400.2010, L3100.5500, L501.0900, L100.0100, L3100.5800 #### [facility] [address] [place], [address] UR CREAT 88.50 mg/dL Normal 28.00-217.00 [facility] Comment on above: Performed By: #### L 500.4050, L3100.5700, L400.2010, L3100.5500, L501.0900, L100.0100, L3100.5800 #### [facility] [address] [place], [address] Urinalysis, Routine (Dipstic k)on 08-02-2024 BILIRUBIN URINE Negative Normal Negative [facility] Comment on above: Order Comment: Urine , Random Performed By: #### L 500.4050, L3100.5700, L400.2010, L3100.5500, L501.0900, L100.0100, L3100.5800 #### [facility] [address] [place], [address] Clarity (U) Clear Normal Clear [facility] Comment on above: Order Comment: Urine , Random Performed By: #### L 500.4050, L3100.5700, L400.2010, L3100.5500, L501.0900, L100.0100, L3100.5800 #### [facility] [address] [place], [address] Color (U) Yellow Normal Yellow [facility] Comment on above: Order Comment: Urine , Random Performed By: #### L 500.4050, L3100.5700, L400.2011, L3100.5500, L501.0900, L100.0100, L3100.5800 #### [facility] [address] [place], [address] GLUCOSE, UR Normal Normal Normal [facility] Comment on above: Order Comment: Urine , Random Performed By: #### L 500.4050, L3100.5700, L400.2010, L3100.5500, L501.0900, L100.0100, L3100.5800 #### [facility] [address] [place], [address] KETONE UR Negative Normal Negative [facility] Comment on above: Order Comment: Urine , Random Performed By: #### L 500.4050, L3100.5700, L400.2010, L3100.5500, L501.0900, L100.0100, L3100.5800 #### [facility] [address] [place], [address] LEUK ESTERASE Negative Normal Negative [facility] Comment on above: Order Comment: Urine , Random Performed By: #### L 500.4050, L3100.5700, L400.2010, L3100.5500, L501.0900, L100.0100, L3100.5800 #### [facility] [address] [place], [address] Nitrite Ql (U) Negative Normal Negative [facility] Comment on above: Order Comment: Urine , Random Performed By: #### L 500.4050, L3100.5700, L400.2010, L3100.5500, L501.0900, L100.0100, L3100.5800 #### [facility] [address] [place], [address] OCCULT BLOOD-UR Negative Normal Negative [facility] Comment on above: Order Comment: Urine , Random Performed By: #### L 500.4050, L3100.5700, L400.2010, L3100.5500, L501.0900, L100.0100, L3100.5800 #### [facility] [address] [place], [address] pH UR 7.0 Normal 5.0 - 8.0 [facility] Comment on above: Order Comment: Urine , Random Performed By: #### L 500.4050, L3100.5700, L400.2010, L3100.5500, L501.0900, L100.0100, L3100.5800 #### [facility] [address] [place], [address] PROT DIPSTX 15 mg/dl Abnormal Negative [facility] Comment on above: Order Comment: Urine , Random Performed By: #### L 500.4050, L3100.5700, L400.2010, L3100.5500, L501.0900, L100.0100, L3100.5800 #### [facility] [address] [place], [address] SP.GR. DIPSTX 1.010 Normal 1.002-1.030 [facility] Comment on above: Order Comment: Urine , Random Performed By: #### L 500.4050, L3100.5700, L400.2010, L3100.5500, L501.0900, L100.0100, L3100.5800 #### [facility] [address] [place], [address] UROBILI Normal Normal Normal [facility] Comment on above: Order Comment: Urine , Random Performed By: #### L 500.4050, L3100.5700, L400.2010, L3100.5500, L501.0900, L100.0100, L3100.5800 #### [facility] [address] [place], [place], [id number] Anti-dsDNA Abon 05-16-2024 ANTI-DNA (DS)AB 30 IU/mL Abnormal 0-9 [facility] Comment on above: Result Comment: Nega tive <5 Equivocal 5 - 9 Positive >9 Performed at: [facility] [address] [id number] Picker Feeder: Pacheco Gramajo PhD, Phone: [phone] Performed By: #### L 500.4050, L3100.5700, L400.2010, L3100.5500, L501.0900, L100.0100, L3100.5800 #### [facility] [address] [place], [place], [phone] Complement C3on 05-14-2024 COMP C3 82 mg/dL Normal 82-167 [facility] Comment on above: Result Comment: Perf ormed at: [address] [id number] Picker Feeder: Pacheco Gramajo PhD, Phone: [phone] Performed By: #### L 500.4050, L3100.5700, L400.2010, L3100.5500, L501.0900, L100.0100, L3100.5800 #### [facility] [address] [place], [place], [phone] Complement C4on 05-14-2024 COMPLEMENT, C4 10 mg/dL Low 12-38 [facility] Comment on above: Performed By: #### L 500.4050, L3100.5700, L400.2010, L3100.5500, L501.0900, L100.0100, L3100.5800 #### [facility] [address] [place], [address] CBC W/Diff, Automatedon Absolute Lymph 0.90 X10 3/uL Normal 0.83-4.51 [facility] Comment on above: Performed By: #### L 3100.5800, L400.2010, L3100.5700, L500.4050, L501.0900, L100.0100, L3100.5500 #### [facility] [address] [place], [address] Absolute Neut 1.5 X10 3/uL Low 2.0-7.7 [facility] Comment on above: Performed By: #### L 3100.5800, L400.2010, L3100.5700, L500.4050, L501.0900, L100.0100, L3100.5500 #### [facility] [address] [place], [address] Basophils/100 WBC (Bld) 1.0 % Normal 0-1 [facility] Comment on above: Performed By: #### L 3100.5800, L4.2010, L3100.5700, L500.4050, L501.0900, L100.0100, L3100.5500 #### [facility] [address] [place], [address] Eosinophils/100 WBC (Bld) 2.4 % Normal 0-5 [facility] Comment on above: Performed By: #### L 3100.5800, L4.2010, L3100.5700, L500.4050, L501.0900, L100.0100, L3100.5500 #### [facility] [address] [place], [address] Erythrocyte distribution width (RBC) [Ratio] 12.7 % Normal 11.6-14.6 [facility] Comment on above: Performed By: #### L 3100.5800, L400.2010, L3100.5700, L500.4050, L501.0900, L100.0100, L3100.5500 #### [facility] [address] [place], [address] Hematocrit (Bld) [Volume fraction] 41.6 % Normal 37-47 [facility] Comment on above: Performed By: #### L 3100.5800, L400.2010, L3100.5700, L500.4050, L501.0900, L100.0100, L3100.5500 #### [facility] [address] [place], [address] Hemoglobin (Bld) [Mass/Vol] 13.2 g/dL Normal 12.0-15.0 [facility] Comment on above: Performed By: #### L 3100.5800, L400.2010, L3100.5700, L500.4050, L501.0900, L100.0100, L3100.5500 #### [facility] [address] [place], [address] IG% 0.000 Normal 0.0-0.9 [facility] Comment on above: Result Comment: IG% - Immature Granulocytes (promyelocytes, myelocytes and metamyelocytes) > 1% indicates that a LEFT SHIFT is Present. Performed By: #### L 3100.5800, L400.2010, L3100.5700, L500.4050, L501.0900, L100.0100, L3100.5500 #### [facility] [address] [place], [address] Lymphocytes/100 WBC (Bld) 31.4 % Normal 19-41 [facility] Comment on above: Performed By: #### L 3100.5800, L400.2010, L3100.5700, L500.4050, L501.0900, L100.0100, L3100.5500 #### [facility] [address] [place], [address] MCH (RBC) [Entitic mass] 31.7 pg Normal 27.0-32.0 [facility] Comment on above: Performed By: #### L 3100.5800, L400.2010, L3100.5700, L500.4050, L501.0900, L100.0100, L3100.5500 #### [facility] [address] [place], [address] MCHC (RBC) [Mass/Vol] 31.7 g/dL Low 32-36 [facility] Comment on above: Performed By: #### L 3100.5800, L400.2010, L3100.5700, L500.4050, L501.0900, L100.0100, L3100.5500 #### [facility] [address] [place], [address] MCV (RBC) [Entitic vol] 99.8 fL High 81-99 [facility] Comment on above: Performed By: #### L 3100.5800, L4.2010, L3100.5700, L500.4050, L501.0900, L100.0100, L3100.5500 #### [facility] [address] [place], [address] Monocytes/100 WBC (Bld) 11.8 % High 0-10 [facility] Comment on above: Performed By: #### L 3100.5800, L400.2010, L3100.5700, L500.4050, L501.0900, L100.0100, L3100.5500 #### [facility] [address] [place], [address] Neutrophils/100 WBC (Bld) 53.4 % Normal 47-70 [facility] Comment on above: Performed By: #### L 3100.5800, L400.2010, L3100.5700, L500.4050, L501.0900, L100.0100, L3100.5500 #### [facility] [address] [place], [address] Nucleated RBC (Bld) [#/Vol] 0 10*3/uL Normal 0-5 [facility] Comment on above: Performed By: #### L 3100.5800, L400.2010, L3100.5700, L500.4050, L501.0900, L100.0100, L3100.5500 #### [facility] [address] [place], [address] Platelet mean volume (Bld) [Entitic vol] 11.2 fL Normal 6.2-12.0 [facility] Comment on above: Performed By: #### L 3100.5800, L400.2010, L3100.5700, L500.4050, L501.0900, L100.0100, L3100.5500 #### [facility] [address] [place], [address] Platelets (Bld) [#/Vol] 180 10*3/uL Normal 150-450 [facility] Comment on above: Performed By: #### L 3100.5800, L4.2010, L3100.5700, L500.4050, L501.0900, L100.0100, L3100.5500 #### [facility] [address] [place], [address] RBC (Bld) [#/Vol] 4.17 10*6/uL Low 4.2-5.4 [facility] Comment on above: Performed By: #### L 3100.5800, L4.2010, L3100.5700, L500.4050, L501.0900, L100.0100, L3100.5500 #### [facility] [address] [place], [address] RDW SD 46.4 fl High 35.1-43.9 [facility] Comment on above: Performed By: #### L 3100.5800, L400.2010, L3100.5700, L500.4050, L501.0900, L100.0100, L3100.5500 #### [facility] [address] [place], [address] WBC (Bld) [#/Vol] 2.9 10*3/uL Low 4.4-11.0 [facility] Comment on above: Performed By: #### L 3100.5800, L400.2010, L3100.5700, L500.4050, L501.0900, L100.0100, L3100.5500 #### [facility] [address] [place], [address] Comprehensive Metabolic Prof ilon 05-13-2024 Albumin [Mass/Vol] 3.7 g/dL Normal 3.2-5.0 [facility] Comment on above: Performed By: #### L 3100.5800, L400.2010, L3100.5700, L500.4050, L501.0900, L100.0100, L3100.5500 #### [facility] [address] [place], [address] Albumin/Globulin [Mass ratio] 1.1 {ratio} Normal 0.9-2.4 [facility] Comment on above: Performed By: #### L 3100.5800, L400.2010, L3100.5700, L500.4050, L501.0900, L100.0100, L3100.5500 #### [facility] [address] [place], [address] ALK P 59 U/L Normal 45-117 [facility] Comment on above: Performed By: #### L 3100.5800, L400.2010, L3100.5700, L500.4050, L501.0900, L100.0100, L3100.5500 #### [facility] [address] [place], [address] ALT [Catalytic activity/Vol] 19 U/L Normal 13-56 [facility] Comment on above: Performed By: #### L 3100.5800, L4, L3100.5700, L500.4050, L501.0900, L100.0100, L3100.5500 #### [facility] [address] [place], [address] AST [Catalytic activity/Vol] 18 U/L Normal 15-37 [facility] Comment on above: Performed By: #### L 3100.5800, , L3100.5700, L500.4050, L501.0900, L100.0100, L3100.5500 #### [facility] [address] [place], [address] Bilirubin [Mass/Vol] 0.40 mg/dL Normal 0.20-1.00 [facility] Comment on above: Result Comment: For patients on eltrombopag therapy, use of Dimension [place] TBIL is not recommended. Performed By: #### L 3100.5800, , L3100.5700, L500.4050, L501.0900, L100.0100, L3100.5500 #### [facility] [address] [place], [address] BUN/CRE 22.0 RATIO High 10-20 [facility] Comment on above: Performed By: #### L 3100.5800, , L3100.5700, L500.4050, L501.0900, L100.0100, L3100.5500 #### [facility] [address] [place], [address] CA,Total 9.1 mg/dL Normal 8.5-10.1 [facility] Comment on above: Performed By: #### L 3100.5800, L4, L3100.5700, L500.4050, L501.0900, L100.0100, L3100.5500 #### [facility] [address] [place], [address] Chloride [Moles/Vol] 104 mmol/L Normal 98-107 [facility] Comment on above: Performed By: #### L 3100.5800, L400.2010, L3100.5700, L500.4050, L501.0900, L100.0100, L3100.5500 #### [facility] [address] [place], [address] CO2 [Moles/Vol] 27.0 mmol/L Normal 21.0-32.0 [facility] Comment on above: Performed By: #### L 3100.5800, L4.2010, L3100.5700, L500.4050, L501.0900, L100.0100, L3100.5500 #### [facility] [address] [place], [address] Creatinine [Mass/Vol] 0.82 mg/dL Normal 0.55-1.02 [facility] Comment on above: Result Comment: The validity of the calculated GFR GFRAA in patients over 70 years has not been determined. Clinical correlation is essential. Performed By: #### L 3100.5800, L4.2010, L3100.5700, L500.4050, L501.0900, L100.0100, L3100.5500 #### [facility] [address] [place], [address] EST GFR - AA 93 mL/min Normal >60 [facility] Comment on above: Result Comment: Afri can Russian GFR Calc Performed By: #### L 3100.5800, L400.2010, L3100.5700, L500.4050, L501.0900, L100.0100, L3100.5500 #### [facility] [address] [place], [address] GAP 7 Normal 5-15 [facility] Comment on above: Performed By: #### L 3100.5800, L4, L3100.5700, L500.4050, L501.0900, L100.0100, L3100.5500 #### [facility] [address] [place], [address] GFR/1.73 sq M.predicted among non-blacks MDRD (S/P/Bld) [Vol rate/Area] 77 mL/min/{1.73_m2} Normal >60 [facility] Comment on above: Result Comment: Non- GFR Calc Performed By: #### L 3100.5800, L400.2010, L3100.5700, L500.4050, L501.0900, L100.0100, L3100.5500 #### [facility] [address] [place], [address] Globulin (S) [Mass/Vol] 3.5 g/dL Normal 2.2-4.2 [facility] Comment on above: Performed By: #### L 3100.5800, L4.2010, L3100.5700, L500.4050, L501.0900, L100.0100, L3100.5500 #### [facility] [address] [place], [address] Glucose [Mass/Vol] 80 mg/dL Normal 74-106 [facility] Comment on above: Performed By: #### L 3100.5800, L400.2010, L3100.5700, L500.4050, L501.0900, L100.0100, L3100.5500 #### [facility] [address] [place], [address] Potassium [Moles/Vol] 4.2 mmol/L Normal 3.5-5.1 [facility] Comment on above: Performed By: #### L 3100.5800, L400.2010, L3100.5700, L500.4050, L501.0900, L100.0100, L3100.5500 #### [facility] [address] [place], [address] Sodium [Moles/Vol] 138 mmol/L Normal 136-145 [facility] Comment on above: Performed By: #### L 3100.5800, L400.2010, L3100.5700, L500.4050, L501.0900, L100.0100, L3100.5500 #### [facility] [address] [place], [address] T PROT 7.2 g/dL Normal 6.4-8.2 [facility] Comment on above: Performed By: #### L 3100.5800, L400.2010, L3100.5700, L500.4050, L501.0900, L100.0100, L3100.5500 #### [facility] [address] [place], [address] Urea nitrogen [Mass/Vol] 18 mg/dL Normal 7-18 [facility] Comment on above: Performed By: #### L 3100.5800, L400.2010, L3100.5700, L500.4050, L501.0900, L100.0100, L3100.5500 #### [facility] [address], [address] Protein+Creatinine Ratio,Uri neon 05-13-2024 PROT:CRE RATIO 145 mg/g CRE Normal 0-200 [facility] Comment on above: Performed By: #### L 500.4050, L3100.5700, L400.2010, L3100.5500, L501.0900, L100.0100, L3100.5800 #### [facility] [address] [place], [address] Protein (U) [Mass/Vol] 13.8 mg/dL High <11.9 [facility] Comment on above: Performed By: #### L 500.4050, L3100.5700, L400.2010, L3100.5500, L501.0900, L100.0100, L3100.5800 #### [facility] [address] [place], [address] UR CREAT 95.30 mg/dL Normal NO RANGE EST. [facility] Comment on above: Performed By: #### L 500.4050, L3100.5700, L400.2011, L3100.5500, L501.0900, L100.0100, L3100.5800 #### [facility] [address] [place], [address] Urinalysis, Routine (Dipstic k)on 05-13-2024 Clarity (U) Clear Normal Clear [facility] Comment on above: Order Comment: CLEAN CATCH Performed By: #### L 3100.5800, L400.2010, L3100.5700, L500.4050, L501.0900, L100.0100, L3100.5500 #### [facility] [address] [place], [address] Color (U) Yellow Normal Yellow [facility] Comment on above: Order Comment: CLEAN CATCH Performed By: #### L 3100.5800, L400.2010, L3100.5700, L500.4050, L501.0900, L100.0100, L3100.5500 #### [facility] [address] [place], [address] BILIRUBIN URINE Negative Normal Negative [facility] Comment on above: Order Comment: CLEAN CATCH Performed By: #### L 3100.5800, L400.2010, L3100.5700, L500.4050, L501.0900, L100.0100, L3100.5500 #### [facility] [address] [place], [address] GLUCOSE, UR Normal Normal Normal [facility] Comment on above: Order Comment: CLEAN CATCH Performed By: #### L 3100.5800, L400.2010, L3100.5700, L500.4050, L501.0900, L100.0100, L3100.5500 #### [facility] [address] [place], [address] KETONE UR Negative Normal Negative [facility] Comment on above: Order Comment: CLEAN CATCH Performed By: #### L 3100.5800, L400.2010, L3100.5700, L500.4050, L501.0900, L100.0100, L3100.5500 #### [facility] [address] [place], [address] LEUK ESTERASE 25 /ul Abnormal Negative [facility] Comment on above: Order Comment: CLEAN CATCH Performed By: #### L 3100.5800, L400.2010, L3100.5700, L500.4050, L501.0900, L100.0100, L3100.5500 #### [facility] [address] [place], [address] Nitrite Ql (U) Negative Normal Negative [facility] Comment on above: Order Comment: CLEAN CATCH Performed By: #### L 3100.5800, L400.2010, L3100.5700, L500.4050, L501.0900, L100.0100, L3100.5500 #### [facility] [address] [place], [address] OCCULT BLOOD-UR Negative Normal Negative [facility] Comment on above: Order Comment: CLEAN CATCH Performed By: #### L 3100.5800, L400.2010, L3100.5700, L500.4050, L501.0900, L100.0100, L3100.5500 #### [facility] [address] [place], [address] pH UR 7.0 Normal 5.0 - 8.0 [facility] Comment on above: Order Comment: CLEAN CATCH Performed By: #### L 3100.5800, L400.2010, L3100.5700, L500.4050, L501.0900, L100.0100, L3100.5500 #### [facility] [address] [place], [address] PROT DIPSTX Negative Normal Negative [facility] Comment on above: Order Comment: CLEAN CATCH Performed By: #### L 3100.5800, L400.2010, L3100.5700, L500.4050, L501.0900, L100.0100, L3100.5500 #### [facility] [address] [place], [address] SP.GR. DIPSTX 1.010 Normal 1.002-1.030 [facility] Comment on above: Order Comment: CLEAN CATCH Performed By: #### L 3100.5800, L400.2010, L3100.5700, L500.4050, L501.0900, L100.0100, L3100.5500 #### [facility] [address] [place], [address] UROBILI Normal Normal Normal [facility] Comment on above: Order Comment: CLEAN CATCH Performed By: #### L 3100.5800, L400.2010, L3100.5700, L500.4050, L501.0900, L100.0100, L3100.5500 #### [facility] [address] [place], [address] Anti-dsDNA Abon 04-13-2024 ANTI-DNA (DS)AB TNP Normal [facility] Comment on above: Order Comment: WILL REORDER Result Comment: WILL REORDER Performed By: #### L 500.4050, L3100.5700, L400.2010, L3100.5500, L501.0900, L100.0100, L3100.5800 #### [facility] [address] [place], [address] CBC W/Diff, Automatedon 01-0 7-2025 PATH REV Reviewed Normal [facility] Comment on above: Result Comment: Leuk openia and neutropenia. Clinical correlation necessary. Sj Geiger M.D. 04/12/24 AMENDED REPORT 04/12/24 1355 PATH REV previously reported as: August Performed By: #### L 500.4050, L3100.5700, L400.2011, L3100.5500, L501.0900, L100.0100, L3100.5800 #### [facility] [address] [place], [place], [address] Complement C3on 04-12-2024 COMP C3 85 mg/dL Normal 82-167 [facility] Comment on above: Result Comment: Perf ormed at: [facility] [address] [id number] Picker Feeder: Pacheco Gramajo PhD, Phone: [phone] Performed By: #### L 500.4050, L3100.5700, L400.2010, L3100.5500, L501.0900, L100.0100, L3100.5800 #### [facility] [address] [place], [place], [address] Complement C4on 04-12-2024 COMPLEMENT, C4 12 mg/dL Normal 12-38 [facility] Comment on above: Performed By: #### L 500.4050, L3100.5700, L400.2010, L3100.5500, L501.0900, L100.0100, L3100.5800 #### [facility] [address] [place], [place], [id number] Comprehensive Metabolic Prof ilon 04-11-2024 Albumin [Mass/Vol] 3.6 g/dL Normal 3.2-5.0 [facility] Comment on above: Performed By: #### L 500.4050, L3100.5700, L400.2010, L3100.5500, L501.0900, L100.0100, L3100.5800 #### [facility] [address] [place], [address] Albumin/Globulin [Mass ratio] 1.0 {ratio} Normal 0.9-2.4 [facility] Comment on above: Performed By: #### L 500.4050, L3100.5700, L400.2010, L3100.5500, L501.0900, L100.0100, L3100.5800 #### [facility] [address] [place], [address] ALK P 61 U/L Normal 45-117 [facility] Comment on above: Performed By: #### L 500.4050, L3100.5700, L400.2010, L3100.5500, L501.0900, L100.0100, L3100.5800 #### [facility] [address] [place], [address] ALT [Catalytic activity/Vol] 26 U/L Normal 13-56 [facility] Comment on above: Performed By: #### L 500.4050, L3100.5700, L400.2010, L3100.5500, L501.0900, L100.0100, L3100.5800 #### [facility] [address] [place], [address] AST [Catalytic activity/Vol] 23 U/L Normal 15-37 [facility] Comment on above: Performed By: #### L 500.4050, L3100.5700, L400.2010, L3100.5500, L501.0900, L100.0100, L3100.5800 #### [facility] [address] [place], [address] Bilirubin [Mass/Vol] 0.50 mg/dL Normal 0.20-1.00 [facility] Comment on above: Result Comment: For patients on eltrombopag therapy, use of Dimension [place] TBIL is not recommended. Performed By: #### L 500.4050, L3100.5700, L400.2010, L3100.5500, L501.0900, L100.0100, L3100.5800 #### [facility] [address] [place], [address] BUN/CRE 21.0 RATIO High 10-20 [facility] Comment on above: Performed By: #### L 500.4050, L3100.5700, L400.2010, L3100.5500, L501.0900, L100.0100, L3100.5800 #### [facility] [address] [place], [address] CA,Total 9.0 mg/dL Normal 8.5-10.1 [facility] Comment on above: Performed By: #### L 500.4050, L3100.5700, L400.2010, L3100.5500, L501.0900, L100.0100, L3100.5800 #### [facility] [address] [place], [address] Chloride [Moles/Vol] 106 mmol/L Normal 98-107 [facility] Comment on above: Performed By: #### L 500.4050, L3100.5700, L400.2010, L3100.5500, L501.0900, L100.0100, L3100.5800 #### [facility] [address] [place], [address] CO2 [Moles/Vol] 30.0 mmol/L Normal 21.0-32.0 [facility] Comment on above: Performed By: #### L 500.4050, L3100.5700, L400.2010, L3100.5500, L501.0900, L100.0100, L3100.5800 #### [facility] [address] [place], [address] Creatinine [Mass/Vol] 0.67 mg/dL Normal 0.55-1.02 [facility] Comment on above: Result Comment: The validity of the calculated GFR GFRAA in patients over 70 years has not been determined. Clinical correlation is essential. Performed By: #### L 500.4050, L3100.5700, L400.2010, L3100.5500, L501.0900, L100.0100, L3100.5800 #### [facility] [address] [place], [address] EST GFR - AA 118 mL/min Normal >60 [facility] Comment on above: Result Comment: Afri can Russian GFR Calc Performed By: #### L 500.4050, L3100.5700, L400.2010, L3100.5500, L501.0900, L100.0100, L3100.5800 #### [facility] [address] [place], [address] GAP 1 Low 5-15 [facility] Comment on above: Performed By: #### L 500.4050, L3100.5700, L4.2010, L3100.5500, L501.0900, L100.0100, L3100.5800 #### [facility] [address] [place], [address] GFR/1.73 sq M.predicted among non-blacks MDRD (S/P/Bld) [Vol rate/Area] 97 mL/min/{1.73_m2} Normal >60 [facility] Comment on above: Result Comment: Non- GFR Calc Performed By: #### L 500.4050, L3100.5700, L400.2010, L3100.5500, L501.0900, L100.0100, L3100.5800 #### [facility] [address] [place], [address] Globulin (S) [Mass/Vol] 3.5 g/dL Normal 2.2-4.2 [facility] Comment on above: Performed By: #### L 500.4050, L3100.5700, L400.2010, L3100.5500, L501.0900, L100.0100, L3100.5800 #### [facility] [address] [place], [address] Glucose [Mass/Vol] 86 mg/dL Normal 74-106 [facility] Comment on above: Performed By: #### L 500.4050, L3100.5700, L400.2010, L3100.5500, L501.0900, L100.0100, L3100.5800 #### [facility] [address] [place], [address] Potassium [Moles/Vol] 4.5 mmol/L Normal 3.5-5.1 [facility] Comment on above: Performed By: #### L 500.4050, L3100.5700, L400.2010, L3100.5500, L501.0900, L100.0100, L3100.5800 #### [facility] [address] [place], [address] Sodium [Moles/Vol] 137 mmol/L Normal 136-145 [facility] Comment on above: Performed By: #### L 500.4050, L3100.5700, L400.2010, L3100.5500, L501.0900, L100.0100, L3100.5800 #### [facility] [address] [place], [address] T PROT 7.1 g/dL Normal 6.4-8.2 [facility] Comment on above: Performed By: #### L 500.4050, L3100.5700, L400.2010, L3100.5500, L501.0900, L100.0100, L3100.5800 #### [facility] [address] [place], [id number] Urea nitrogen [Mass/Vol] 14 mg/dL Normal 7-18 [facility] Comment on above: Performed By: #### L 500.4050, L3100.5700, L400.2010, L3100.5500, L501.0900, L100.0100, L3100.5800 #### [facility] [address] [place], [address] Protein+Creatinine Ratio,Uri neon 04-11-2024 PROT:CRE RATIO 175 mg/g CRE Normal 0-200 [facility] Comment on above: Performed By: #### L 500.4050, L3100.5700, L400.2010, L3100.5500, L501.0900, L100.0100, L3100.5800 #### [facility] [address] [place], [address] Protein (U) [Mass/Vol] 10.3 mg/dL Normal <11.9 [facility] Comment on above: Performed By: #### L 500.4050, L3100.5700, L400.2010, L3100.5500, L501.0900, L100.0100, L3100.5800 #### [facility] [address] [place], [address] UR CREAT 59.00 mg/dL Normal NO RANGE EST. [facility] Comment on above: Performed By: #### L 500.4050, L3100.5700, L400.2010, L3100.5500, L501.0900, L100.0100, L3100.5800 #### [facility] [address] [place], [address] Urinalysis, Routine (Dipstic k)on 04-11-2024 BILIRUBIN URINE Negative Normal Negative [facility] Comment on above: Order Comment: CLEAN CATCH Performed By: #### L 500.4050, L3100.5700, L400.2010, L3100.5500, L501.0900, L100.0100, L3100.5800 #### [facility] [address] [place], [address] Clarity (U) Clear Normal Clear [facility] Comment on above: Order Comment: CLEAN CATCH Performed By: #### L 500.4050, L3100.5700, L400.2011, L3100.5500, L501.0900, L100.0100, L3100.5800 #### [facility] [address] [place], [address] Color (U) Yellow Normal Yellow [facility] Comment on above: Order Comment: CLEAN CATCH Performed By: #### L 500.4050, L3100.5700, L400.2011, L3100.5500, L501.0900, L100.0100, L3100.5800 #### [facility] [address] [place], [address] GLUCOSE, UR Normal Normal Normal [facility] Comment on above: Order Comment: CLEAN CATCH Performed By: #### L 500.4050, L3100.5700, L400.2010, L3100.5500, L501.0900, L100.0100, L3100.5800 #### [facility] [address] [place], [address] KETONE UR Negative Normal Negative [facility] Comment on above: Order Comment: CLEAN CATCH Performed By: #### L 500.4050, L3100.5700, L400.2010, L3100.5500, L501.0900, L100.0100, L3100.5800 #### [facility] [address] [place], [address] LEUK ESTERASE Negative Normal Negative [facility] Comment on above: Order Comment: CLEAN CATCH Performed By: #### L 500.4050, L3100.5700, L400.2011, L3100.5500, L501.0900, L100.0100, L3100.5800 #### [facility] [address] [place], [address] Nitrite Ql (U) Negative Normal Negative [facility] Comment on above: Order Comment: CLEAN CATCH Performed By: #### L 500.4050, L3100.5700, L400.2011, L3100.5500, L501.0900, L100.0100, L3100.5800 #### [facility] [address] [place], [address] OCCULT BLOOD-UR Negative Normal Negative [facility] Comment on above: Order Comment: CLEAN CATCH Performed By: #### L 500.4050, L3100.5700, L400.2010, L3100.5500, L501.0900, L100.0100, L3100.5800 #### [facility] [address] [place], [address] pH UR 7.0 Normal 5.0 - 8.0 [facility] Comment on above: Order Comment: CLEAN CATCH Performed By: #### L 500.4050, L3100.5700, L400.2010, L3100.5500, L501.0900, L100.0100, L3100.5800 #### [facility] [address] [place], [address] PROT DIPSTX Negative Normal Negative [facility] Comment on above: Order Comment: CLEAN CATCH Performed By: #### L 500.4050, L3100.5700, L400.2010, L3100.5500, L501.0900, L100.0100, L3100.5800 #### [facility] [address] [place], [address] SP.GR. DIPSTX 1.005 Normal 1.002-1.030 [facility] Comment on above: Order Comment: CLEAN CATCH Performed By: #### L 500.4050, L3100.5700, L400.2010, L3100.5500, L501.0900, L100.0100, L3100.5800 #### [facility] [address] [place], [address] UROBILI Normal Normal Normal [facility] Comment on above: Order Comment: CLEAN CATCH Performed By: #### L 500.4050, L3100.5700, L400.2010, L3100.5500, L501.0900, L100.0100, L3100.5800 #### [facility] [address] [place], [address] Basic Metabolic Profile (BMP )on 03-15-2024 BUN/CRE 20.7 RATIO High 10-20 [facility] Comment on above: Performed By: #### L 500.4050, L3100.5700, L400.2010, L3100.5500, L501.0900, L100.0100, L3100.5800 #### [facility] [address] [place], [address] CA,Total 9.4 mg/dL Normal 8.5-10.1 [facility] Comment on above: Performed By: #### L 500.4050, L3100.5700, L4.2010, L3100.5500, L501.0900, L100.0100, L3100.5800 #### [facility] [address] [place], [address] Chloride [Moles/Vol] 109 mmol/L High 98-107 [facility] Comment on above: Performed By: #### L 500.4050, L3100.5700, L400.2010, L3100.5500, L501.0900, L100.0100, L3100.5800 #### [facility] [address] [place], [address] CO2 [Moles/Vol] 26.0 mmol/L Normal 21.0-32.0 [facility] Comment on above: Performed By: #### L 500.4050, L3100.5700, L400.2010, L3100.5500, L501.0900, L100.0100, L3100.5800 #### [facility] [address] [place], [address] Creatinine [Mass/Vol] 0.72 mg/dL Normal 0.55-1.02 [facility] Comment on above: Result Comment: The validity of the calculated GFR GFRAA in patients over 70 years has not been determined. Clinical correlation is essential. Performed By: #### L 500.4050, L3100.5700, L400.2011, L3100.5500, L501.0900, L100.0100, L3100.5800 #### [facility] [address] [place], [address] EST GFR - AA 108 mL/min Normal >60 [facility] Comment on above: Result Comment: Afri can Russian GFR Calc Performed By: #### L 500.4050, L3100.5700, L400.2010, L3100.5500, L501.0900, L100.0100, L3100.5800 #### [facility] [address] [place], [address] GAP 4 Low 5-15 [facility] Comment on above: Performed By: #### L 500.4050, L3100.5700, L400.2010, L3100.5500, L501.0900, L100.0100, L3100.5800 #### [facility] [address] [place], [address] GFR/1.73 sq M.predicted among non-blacks MDRD (S/P/Bld) [Vol rate/Area] 89 mL/min/{1.73_m2} Normal >60 [facility] Comment on above: Result Comment: Non- GFR Calc Performed By: #### L 500.4050, L3100.5700, L400.2010, L3100.5500, L501.0900, L100.0100, L3100.5800 #### [facility] [address] [place], [address] Glucose [Mass/Vol] 83 mg/dL Normal 74-106 [facility] Comment on above: Performed By: #### L 500.4050, L3100.5700, L400.2011, L3100.5500, L501.0900, L100.0100, L3100.5800 #### [facility] [address] [place], [address] Potassium [Moles/Vol] 4.4 mmol/L Normal 3.5-5.1 [facility] Comment on above: Performed By: #### L 500.4050, L3100.5700, L400.2011, L3100.5500, L501.0900, L100.0100, L3100.5800 #### [facility] [address] [place], [address] Sodium [Moles/Vol] 139 mmol/L Normal 136-145 [facility] Comment on above: Performed By: #### L 500.4050, L3100.5700, L400.2010, L3100.5500, L501.0900, L100.0100, L3100.5800 #### [facility] [address] [place], [address] Urea nitrogen [Mass/Vol] 15 mg/dL Normal 7-18 [facility] Comment on above: Performed By: #### L 500.4050, L3100.5700, L400.2010, L3100.5500, L501.0900, L100.0100, L3100.5800 #### [facility] [address] [place], [address] Microalb:Creat Ratio,Random URon 03-15-2024 Creatinine [Mass/Vol] 143.00 mg/dL Normal NO RAN GE EST. [facility] Comment on above: Performed By: #### L 500.4050, L3100.5700, L400.2011, L3100.5500, L501.0900, L100.0100, L3100.5800 #### [facility] [address] [place], [address] MALB:CRE 5.0 mg/g CRE Normal <30 mg/g CRE [facility] Comment on above: Performed By: #### L 500.4050, L3100.5700, L400.2011, L3100.5500, L501.0900, L100.0100, L3100.5800 #### [facility] [address] [place], [address] MICROALBUMIN,UR 7.1 mg/L Normal NO RANGE EST. [facility] Comment on above: Performed By: #### L 500.4050, L3100.5700, L400.2010, L3100.5500, L501.0900, L100.0100, L3100.5800 #### [facility] [address] [place], [place], [id number] Anti-dsDNA Abon 02-19-2024 ANTI-DNA (DS)AB 27 IU/mL Abnormal 0-9 [facility] Comment on above: Result Comment: Nega tive <5 Equivocal 5 - 9 Positive >9 Performed at: [employer] [id number] Picker Feeder: Pacheco Gramajo PhD, Phone: [phone] Performed By: #### L 500.4050, L3100.5700, L400.2010, L3100.5500, L501.0900, L100.0100, L3100.5800 #### [facility] [address] [place], [place], [id number] Complement C3on 02-19-2024 COMP C3 86 mg/dL Normal 82-167 [facility] Comment on above: Result Comment: Perf ormed at: [facility] [employer] [id number] Picker Feeder: Pacheco Gramajo PhD, Phone: [phone] Performed By: #### L 500.4050, L3100.5700, L400.2010, L3100.5500, L501.0900, L100.0100, L3100.5800 #### [facility] [address] [place], [address] Complement C4on 02-19-2024 COMPLEMENT, C4 13 mg/dL Normal 12-38 [facility] Comment on above: Performed By: #### L 500.4050, L3100.5700, L400.2011, L3100.5500, L501.0900, L100.0100, L3100.5800 #### [facility] [address] [place], [address] CBC W/Diff, Automatedon 02-04 Absolute Lymph 0.93 X10 3/uL Normal 0.83-4.51 [facility] Comment on above: Performed By: #### L 500.4050, L3100.5700, L400.2010, L3100.5500, L501.0900, L100.0100, L3100.5800 #### [facility] [address] [place], [address] Absolute Neut 1.5 X10 3/uL Low 2.0-7.7 [facility] Comment on above: Performed By: #### L 500.4050, L3100.5700, L400.2010, L3100.5500, L501.0900, L100.0100, L3100.5800 #### [facility] [address] [place], [address] Basophils/100 WBC (Bld) 1.1 % High 0-1 [facility] Comment on above: Performed By: #### L 500.4050, L3100.5700, L400.2011, L3100.5500, L501.0900, L100.0100, L3100.5800 #### [facility] [address] [place], [address] Eosinophils/100 WBC (Bld) 2.1 % Normal 0-5 [facility] Comment on above: Performed By: #### L 500.4050, L3100.5700, L400.2010, L3100.5500, L501.0900, L100.0100, L3100.5800 #### [facility] [address] [place], [address] Erythrocyte distribution width (RBC) [Ratio] 12.0 % Normal 11.6-14.6 [facility] Comment on above: Performed By: #### L 500.4050, L3100.5700, L400.2010, L3100.5500, L501.0900, L100.0100, L3100.5800 #### [facility] [address] [place], [address] Hematocrit (Bld) [Volume fraction] 39.2 % Normal 37-47 [facility] Comment on above: Performed By: #### L 500.4050, L3100.5700, L400.2010, L3100.5500, L501.0900, L100.0100, L3100.5800 #### [facility] [address] [place], [address] Hemoglobin (Bld) [Mass/Vol] 12.3 g/dL Normal 12.0-15.0 [facility] Comment on above: Performed By: #### L 500.4050, L3100.5700, L400.2010, L3100.5500, L501.0900, L100.0100, L3100.5800 #### [facility] [address] [place], [address] IG% 0.000 Normal 0.0-0.9 [facility] Comment on above: Result Comment: IG% - Immature Granulocytes (promyelocytes, myelocytes and metamyelocytes) > 1% indicates that a LEFT SHIFT is Present. Performed By: #### L 500.4050, L3100.5700, L400.2010, L3100.5500, L501.0900, L100.0100, L3100.5800 #### [facility] [address] [place], [address] Lymphocytes/100 WBC (Bld) 33.2 % Normal 19-41 [facility] Comment on above: Performed By: #### L 500.4050, L3100.5700, L400.2011, L3100.5500, L501.0900, L100.0100, L3100.5800 #### [facility] [address] [place], [address] MCH (RBC) [Entitic mass] 31.4 pg Normal 27.0-32.0 [facility] Comment on above: Performed By: #### L 500.4050, L3100.5700, L400.2010, L3100.5500, L501.0900, L100.0100, L3100.5800 #### [facility] [address] [place], [address] MCHC (RBC) [Mass/Vol] 31.4 g/dL Low 32-36 [facility] Comment on above: Performed By: #### L 500.4050, L3100.5700, L400.2010, L3100.5500, L501.0900, L100.0100, L3100.5800 #### [facility] [address] [place], [address] MCV (RBC) [Entitic vol] 100.0 fL High 81-99 [facility] Comment on above: Performed By: #### L 500.4050, L3100.5700, L400.2010, L3100.5500, L501.0900, L100.0100, L3100.5800 #### [facility] [address] [place], [address] Monocytes/100 WBC (Bld) 11.4 % High 0-10 [facility] Comment on above: Performed By: #### L 500.4050, L3100.5700, L400.2010, L3100.5500, L501.0900, L100.0100, L3100.5800 #### [facility] [address] [place], [address] Neutrophils/100 WBC (Bld) 52.2 % Normal 47-70 [facility] Comment on above: Performed By: #### L 500.4050, L3100.5700, L400.2011, L3100.5500, L501.0900, L100.0100, L3100.5800 #### [facility] [address] [place], [address] Nucleated RBC (Bld) [#/Vol] 0 10*3/uL Normal 0-5 [facility] Comment on above: Performed By: #### L 500.4050, L3100.5700, L400.2010, L3100.5500, L501.0900, L100.0100, L3100.5800 #### [facility] [address] [place], [address] Platelet mean volume (Bld) [Entitic vol] 11.1 fL Normal 6.2-12.0 [facility] Comment on above: Performed By: #### L 500.4050, L3100.5700, L400.2010, L3100.5500, L501.0900, L100.0100, L3100.5800 #### [facility] [address] [place], [address] Platelets (Bld) [#/Vol] 168 10*3/uL Normal 150-450 [facility] Comment on above: Performed By: #### L 500.4050, L3100.5700, L400.2010, L3100.5500, L501.0900, L100.0100, L3100.5800 #### [facility] [address] [place], [address] RBC (Bld) [#/Vol] 3.92 10*6/uL Low 4.2-5.4 [facility] Comment on above: Performed By: #### L 500.4050, L3100.5700, L400.2010, L3100.5500, L501.0900, L100.0100, L3100.5800 #### [facility] [address] [place], [address] RDW SD 43.5 fl Normal 35.1-43.9 [facility] Comment on above: Performed By: #### L 500.4050, L3100.5700, L400.2010, L3100.5500, L501.0900, L100.0100, L3100.5800 #### [facility] [address] [place], [address] WBC (Bld) [#/Vol] 2.8 10*3/uL Low 4.4-11.0 [facility] Comment on above: Performed By: #### L 500.4050, L3100.5700, L400.2010, L3100.5500, L501.0900, L100.0100, L3100.5800 #### [facility] [address] [place], [address] Comprehensive Metabolic Prof [facility] 02-17-2024 Albumin [Mass/Vol] 3.6 g/dL Normal 3.2-5.0 [facility] Comment on above: Performed By: #### L 500.4050, L3100.5700, L400.2010, L3100.5500, L501.0900, L100.0100, L3100.5800 #### [facility] [address] [place], [address] Albumin/Globulin [Mass ratio] 1.1 {ratio} Normal 0.9-2.4 [facility] Comment on above: Performed By: #### L 500.4050, L3100.5700, L400.2010, L3100.5500, L501.0900, L100.0100, L3100.5800 #### [facility] [address] [place], [address] ALK P 65 U/L Normal 45-117 [facility] Comment on above: Performed By: #### L 500.4050, L3100.5700, L400.2010, L3100.5500, L501.0900, L100.0100, L3100.5800 #### [facility] [address] [place], [address] ALT [Catalytic activity/Vol] 20 U/L Normal 13-56 [facility] Comment on above: Performed By: #### L 500.4050, L3100.5700, L400.2010, L3100.5500, L501.0900, L100.0100, L3100.5800 #### [facility] [address] [place], [address] AST [Catalytic activity/Vol] 14 U/L Low 15-37 [facility] Comment on above: Performed By: #### L 500.4050, L3100.5700, L400.2010, L3100.5500, L501.0900, L100.0100, L3100.5800 #### [facility] [address] [place], [address] Bilirubin [Mass/Vol] 0.30 mg/dL Normal 0.20-1.00 [facility] Comment on above: Result Comment: For patients on eltrombopag therapy, use of Dimension [place] TBIL is not recommended. Performed By: #### L 500.4050, L3100.5700, L400.2010, L3100.5500, L501.0900, L100.0100, L3100.5800 #### [facility] [address] [place], [address] BUN/CRE 30.8 RATIO High 10-20 [facility] Comment on above: Performed By: #### L 500.4050, L3100.5700, L400.2010, L3100.5500, L501.0900, L100.0100, L3100.5800 #### [facility] [address] [place], [address] CA,Total 9.0 mg/dL Normal 8.5-10.1 [facility] Comment on above: Performed By: #### L 500.4050, L3100.5700, L400.2010, L3100.5500, L501.0900, L100.0100, L3100.5800 #### [facility] [address] [place], [address] Chloride [Moles/Vol] 107 mmol/L Normal 98-107 [facility] Comment on above: Performed By: #### L 500.4050, L3100.5700, L400.2010, L3100.5500, L501.0900, L100.0100, L3100.5800 #### [facility] [address] [place], [address] CO2 [Moles/Vol] 29.0 mmol/L Normal 21.0-32.0 [facility] Comment on above: Performed By: #### L 500.4050, L3100.5700, L400.2010, L3100.5500, L501.0900, L100.0100, L3100.5800 #### [facility] [address] [place], [address] Creatinine [Mass/Vol] 0.68 mg/dL Normal 0.55-1.02 [facility] Comment on above: Result Comment: The validity of the calculated GFR GFRAA in patients over 70 years has not been determined. Clinical correlation is essential. Performed By: #### L 500.4050, L3100.5700, L400.2010, L3100.5500, L501.0900, L100.0100, L3100.5800 #### [facility] [address] [place], [address] EST GFR - AA 115 mL/min Normal >60 [facility] Comment on above: Result Comment: Afri can [place] GFR Calc Performed By: #### L 500.4050, L3100.5700, L400.2010, L3100.5500, L501.0900, L100.0100, L3100.5800 #### [facility] [address] [place], [address] GAP 3 Low 5-15 [facility] Comment on above: Performed By: #### L 500.4050, L3100.5700, L400.2010, L3100.5500, L501.0900, L100.0100, L3100.5800 #### [facility] [address] [place], [address] GFR/1.73 sq M.predicted among non-blacks MDRD (S/P/Bld) [Vol rate/Area] 95 mL/min/{1.73_m2} Normal >60 [facility] Comment on above: Result Comment: Non- GFR Calc Performed By: #### L 500.4050, L3100.5700, L400.2010, L3100.5500, L501.0900, L100.0100, L3100.5800 #### [facility] [address] [place], [address] Globulin (S) [Mass/Vol] 3.4 g/dL Normal 2.2-4.2 [facility] Comment on above: Performed By: #### L 500.4050, L3100.5700, L400.2010, L3100.5500, L501.0900, L100.0100, L3100.5800 #### [facility] [address] [place], [address] Glucose [Mass/Vol] 82 mg/dL Normal 74-106 [facility] Comment on above: Performed By: #### L 500.4050, L3100.5700, L400.2010, L3100.5500, L501.0900, L100.0100, L3100.5800 #### [facility] [address] [place], [address] Potassium [Moles/Vol] 4.4 mmol/L Normal 3.5-5.1 [facility] Comment on above: Performed By: #### L 500.4050, L3100.5700, L400.2010, L3100.5500, L501.0900, L100.0100, L3100.5800 #### [facility] [address] [place], [address] Sodium [Moles/Vol] 139 mmol/L Normal 136-145 [facility] Comment on above: Performed By: #### L 500.4050, L3100.5700, L400.2010, L3100.5500, L501.0900, L100.0100, L3100.5800 #### [facility] [address] [place], [address] T PROT 7.0 g/dL Normal 6.4-8.2 [facility] Comment on above: Performed By: #### L 500.4050, L3100.5700, L400.2010, L3100.5500, L501.0900, L100.0100, L3100.5800 #### [facility] [address] [place], [address] Urea nitrogen [Mass/Vol] 21 mg/dL High 7-18 [facility] Comment on above: Performed By: #### L 500.4050, L3100.5700, L400.2010, L3100.5500, L501.0900, L100.0100, L3100.5800 #### [facility] [address] [place], [address] Protein+Creatinine Ratio,Uri neon 02-17-2024 PROT:CRE RATIO 265 mg/g CRE High 0-200 [facility] Comment on above: Performed By: #### L 500.4050, L3100.5700, L400.2010, L3100.5500, L501.0900, L100.0100, L3100.5800 #### [facility] [address] [place], [address] Protein (U) [Mass/Vol] 8.0 mg/dL Normal <11.9 [facility] Comment on above: Performed By: #### L 500.4050, L3100.5700, L400.2010, L3100.5500, L501.0900, L100.0100, L3100.5800 #### [facility] [address] [place], [address] UR CREAT 30.20 mg/dL Normal NO RANGE EST. [facility] Comment on above: Performed By: #### L 500.4050, L3100.5700, L400.2010, L3100.5500, L501.0900, L100.0100, L3100.5800 #### [facility] [address] [place], [address] Urinalysis, Routine (Dipstic k)on 02-17-2024 BILIRUBIN URINE Negative Normal Negative [facility] Comment on above: Order Comment: CLEAN CATCH Performed By: #### L 500.4050, L3100.5700, L400.2010, L3100.5500, L501.0900, L100.0100, L3100.5800 #### [facility] [address] [place], [address] Clarity (U) Clear Normal Clear [facility] Comment on above: Order Comment: CLEAN CATCH Performed By: #### L 500.4050, L3100.5700, L400.2010, L3100.5500, L501.0900, L100.0100, L3100.5800 #### [facility] [address] [place], [address] Color (U) Yellow Normal Yellow [facility] Comment on above: Order Comment: CLEAN CATCH Performed By: #### L 500.4050, L3100.5700, L400.2011, L3100.5500, L501.0900, L100.0100, L3100.5800 #### [facility] [address] [place], [address] GLUCOSE, UR Normal Normal Normal [facility] Comment on above: Order Comment: CLEAN CATCH Performed By: #### L 500.4050, L3100.5700, L400.2010, L3100.5500, L501.0900, L100.0100, L3100.5800 #### [facility] [address] [place], [address] KETONE UR Negative Normal Negative [facility] Comment on above: Order Comment: CLEAN CATCH Performed By: #### L 500.4050, L3100.5700, L400.2010, L3100.5500, L501.0900, L100.0100, L3100.5800 #### [facility] [address] [place], [address] LEUK ESTERASE Negative Normal Negative [facility] Comment on above: Order Comment: CLEAN CATCH Performed By: #### L 500.4050, L3100.5700, L400.2010, L3100.5500, L501.0900, L100.0100, L3100.5800 #### [facility] [address] [place], [address] Nitrite Ql (U) Negative Normal Negative [facility] Comment on above: Order Comment: CLEAN CATCH Performed By: #### L 500.4050, L3100.5700, L400.2011, L3100.5500, L501.0900, L100.0100, L3100.5800 #### [facility] [address] [place], [address] OCCULT BLOOD-UR Negative Normal Negative [facility] Comment on above: Order Comment: CLEAN CATCH Performed By: #### L 500.4050, L3100.5700, L400.2010, L3100.5500, L501.0900, L100.0100, L3100.5800 #### [facility] [address] [place], [address] pH UR 7.0 Normal 5.0 - 8.0 [facility] Comment on above: Order Comment: CLEAN CATCH Performed By: #### L 500.4050, L3100.5700, L400.2010, L3100.5500, L501.0900, L100.0100, L3100.5800 #### [facility] [address] [place], [address] PROT DIPSTX Negative Normal Negative [facility] Comment on above: Order Comment: CLEAN CATCH Performed By: #### L 500.4050, L3100.5700, L400.2010, L3100.5500, L501.0900, L100.0100, L3100.5800 #### [facility] [address] [place], [address] SP.GR. DIPSTX 1.010 Normal 1.002-1.030 [facility] Comment on above: Order Comment: CLEAN CATCH Performed By: #### L 500.4050, L3100.5700, L400.2010, L3100.5500, L501.0900, L100.0100, L3100.5800 #### [facility] [address] [place], [address] UROBILI Normal Normal Normal [facility] Comment on above: Order Comment: CLEAN CATCH Performed By: #### L 500.4050, L3100.5700, L400.2010, L3100.5500, L501.0900, L100.0100, L3100.5800 #### [facility] [address] [place], [address] CBC W Auto Differential pane l (Bld)on 02-01-2024 Basophils (Bld) [#/Vol] 0.02 x10*3/uL Normal 0.00-0.10 [facility] Comment on above: Performed By: #### 2 132-9 #### CARLITOS ROBERTSON ([id number]) [facility] ([facility]) [address] [place] [address] Basophils/100 WBC (Bld) 0.6 % Normal 0.0-2.0 [facility] Comment on above: Performed By: #### 2 132-9 #### CARLITOS ROBERTSON ([id number]) [facility] ([facility]) [address] [place] [address] Eosinophils (Bld) [#/Vol] 0.12 x10*3/uL Normal 0.00-0.70 [facility] Comment on above: Performed By: #### 2 132-9 #### CARLITOS ROBERTSON ([id number]) [facility] ([facility]) [address] [place] [address] Eosinophils/100 WBC (Bld) 3.9 % Normal 0.0-6.0 [facility] Comment on above: Performed By: #### 2 132-9 #### CARLITOS ROBERTSON ([id number]) [facility] ([facility]) [address] [place] [address] Erythrocyte distribution width (RBC) [Ratio] 11.9 % Normal 11.5-14.5 [facility] Comment on above: Performed By: #### 2 132-9 #### CARLITOS ROBERTSON ([id number]) [facility] ([facility]) [address] [place] [address] Hematocrit (Bld) [Volume fraction] 43.1 % Normal 36.0-46.0 [facility] Comment on above: Performed By: #### 2 132-9 #### CARLITOS ROBERTSON ([id number]) [facility] ([facility]) [address] [place] [address] Hemoglobin (Bld) [Mass/Vol] 13.7 g/dL Normal 12.0-16.0 [facility] Comment on above: Performed By: #### 2 132-9 #### CARLITOS ROBERTSON ([id number]) [facility] ([facility]) [address] [place] [address]26[address] Immature granulocytes (Bld) [#/Vol] 0.00 x10*3/uL Normal 0.00-0.70 [facility] Comment on above: Performed By: #### 2 132-9 #### CARLITOS ROBERTSON ([id number]) [facility] ([facility]) [address] [place] [address] 26545 Immature granulocytes/100 WBC (Bld) 0.0 % Normal 0.0-0.9 [facility] Comment on above: Result Comment: Sharona ture Granulocyte Count (IG) includes promyelocytes, myelocytes and metamyelocytes but does not include bands. Percent differential counts (%) should be interpreted in the context of the absolute cell counts (cells/UL). Performed By: #### 2 132-9 #### CARLITOS ROBERTSON ([id number]) [facility] ([facility]) [address] [place] [address]13 Lymphocytes (Bld) [#/Vol] 0.71 x10*3/uL Low 1.20-4.80 [facility] Comment on above: Performed By: #### 2 132-9 #### CARLITOS ROBERTSON ([id number]) [facility] ([facility]) [address] [place] [address]39 Lymphocytes/100 WBC (Bld) 22.9 % Normal 13.0-44.0 [facility] Comment on above: Performed By: #### 2 132-9 #### CARLITOS ROBERTSON ([id number]) [facility] ([facility]) [address] [place] [address] 24841 MCH (RBC) [Entitic mass] 31.7 pg Normal 26.0-34.0 [facility] Comment on above: Performed By: #### 2 132-9 #### CARLITOS ROBERTSON ([id number]) [facility] ([facility]) [address] [place] [address] 07943 MCHC (RBC) [Mass/Vol] 31.8 g/dL Low 32.0-36.0 [facility] Comment on above: Performed By: #### 2 132-9 #### CARLITOS ROBERTSON ([id number]) [facility] ([facility]) [address] [place] [address] 86234 MCV (RBC) [Entitic vol] 100 fL Normal 80-100 [facility] Comment on above: Performed By: #### 2 132-9 #### CARLITOS ROBERTSON ([id number]) [facility] ([facility]) [address] [place] [address] 06599 Monocytes (Bld) [#/Vol] 0.48 x10*3/uL Normal 0.10-1.00 [facility] Comment on above: Performed By: #### 2 132-9 #### CARLITOS ROBERTSON ([id number]) [facility] ([facility]) [address] [place] [address] 41718 Monocytes/100 WBC (Bld) 15.5 % Normal 2.0-10.0 [facility] Comment on above: Performed By: #### 2 132-9 #### CARLITOS ROBERTSON ([id number]) [facility] ([facility]) [address] [place] [address]717 Neutrophils (Bld) [#/Vol] 1.77 x10*3/uL Normal 1.20-7.70 [facility] Comment on above: Result Comment: Perc ent differential counts (%) should be interpreted in the context of the absolute cell counts (cells/uL). Performed By: #### 2 132-9 #### CARLITOS ROBERTSON ([id number]) [facility] ([facility]) [address] [place] [address] 56018 Neutrophils/100 WBC (Bld) 57.1 % Normal 40.0-80.0 [facility] Comment on above: Performed By: #### 2 132-9 #### CARLITOS ROBERTSON ([id number]) [facility] ([facility]) [address] [place] [address] 44901 Nucleated RBC/100 WBC (Bld) [Ratio] 0.0 /100 WBCs Normal 0.0-0.0 [facility] Comment on above: Performed By: #### 2 132-9 #### CARLITOS ROBERTSON ([id number]) [facility] ([facility]) [address] [place] [address] 66029 Platelets (Bld) [#/Vol] 173 x10*3/uL Normal 150-450 [facility] Comment on above: Performed By: #### 2 132-9 #### CARLITOS ROBERTSON ([id number]) [facility] ([facility]) [address] [place] [address] 32794 RBC (Bld) [#/Vol] 4.32 x10*6/uL Normal 4.00-5.20 [facility] Comment on above: Performed By: #### 2 132-9 #### CARLITOS ROBERTSON ([id number]) [facility] ([facility]) [address] [place] [address] 06107 WBC (Bld) [#/Vol] 3.1 x10*3/uL Low 4.4-11.3 [facility] Comment on above: Performed By: #### 2 132-9 #### CARLITOS ROBERTSON ([id number]) [facility] ([facility]) [address] [place] [address] Basic Metabolic Profile (BMP )on 01-07-2024 BUN/CRE 18.1 RATIO Normal 10-20 [facility] Comment on above: Performed By: #### L 500.4050, L3100.5700, L400.2010, L3100.5500, L501.0900, L100.0100, L3100.5800 #### [facility] [address] [place], [address] CA,Total 9.8 mg/dL Normal 8.5-10.1 [facility] Comment on above: Performed By: #### L 500.4050, L3100.5700, L400.2010, L3100.5500, L501.0900, L100.0100, L3100.5800 #### [facility] [address] [place], [address] Chloride [Moles/Vol] 107 mmol/L Normal 98-107 [facility] Comment on above: Performed By: #### L 500.4050, L3100.5700, L400.2011, L3100.5500, L501.0900, L100.0100, L3100.5800 #### [facility] [address] [place], [address] CO2 [Moles/Vol] 28.0 mmol/L Normal 21.0-32.0 [facility] Comment on above: Performed By: #### L 500.4050, L3100.5700, L400.2010, L3100.5500, L501.0900, L100.0100, L3100.5800 #### [facility] [address] [place], [address] Creatinine [Mass/Vol] 0.72 mg/dL Normal 0.55-1.02 [facility] Comment on above: Result Comment: The validity of the calculated GFR GFRAA in patients over 70 years has not been determined. Clinical correlation is essential. Performed By: #### L 500.4050, L3100.5700, L400.2010, L3100.5500, L501.0900, L100.0100, L3100.5800 #### [facility] [address] [place], [address] EST GFR - AA 108 mL/min Normal >60 [facility] Comment on above: Result Comment: Afri can Russian GFR Calc Performed By: #### L 500.4050, L3100.5700, L400.2010, L3100.5500, L501.0900, L100.0100, L3100.5800 #### [facility] [address] [place], [address] GAP 2 Low 5-15 [facility] Comment on above: Performed By: #### L 500.4050, L3100.5700, L400.2010, L3100.5500, L501.0900, L100.0100, L3100.5800 #### [facility] [address] [place], [address] GFR/1.73 sq M.predicted among non-blacks MDRD (S/P/Bld) [Vol rate/Area] 90 mL/min/{1.73_m2} Normal >60 [facility] Comment on above: Result Comment: Non- GFR Calc Performed By: #### L 500.4050, L3100.5700, L400.2010, L3100.5500, L501.0900, L100.0100, L3100.5800 #### [facility] [address] [place], [address] Glucose [Mass/Vol] 83 mg/dL Normal 74-106 [facility] Comment on above: Performed By: #### L 500.4050, L3100.5700, L400.2010, L3100.5500, L501.0900, L100.0100, L3100.5800 #### [facility] [address] [place], [address] Potassium [Moles/Vol] 4.5 mmol/L Normal 3.5-5.1 [facility] Comment on above: Performed By: #### L 500.4050, L3100.5700, L400.2010, L3100.5500, L501.0900, L100.0100, L3100.5800 #### [facility] [address] [place], [address] Sodium [Moles/Vol] 137 mmol/L Normal 136-145 [facility] Comment on above: Performed By: #### L 500.4050, L3100.5700, L400.2010, L3100.5500, L501.0900, L100.0100, L3100.5800 #### [facility] [address] [place], [address] Urea nitrogen [Mass/Vol] 13 mg/dL Normal 7-18 [facility] Comment on above: Performed By: #### L 500.4050, L3100.5700, L400.2010, L3100.5500, L501.0900, L100.0100, L3100.5800 #### [facility] [address] [place], [address] Microalb:Creat Ratio,Random URon 01-07-2024 Creatinine [Mass/Vol] 84.40 mg/dL Normal NO RAN GE EST. [facility] Comment on above: Performed By: #### L 500.4050, L3100.5700, L400.2010, L3100.5500, L501.0900, L100.0100, L3100.5800 #### [facility] [address] [place], [address] MALB:CRE 6.7 mg/g CRE Normal <30 mg/g CRE [facility] Comment on above: Performed By: #### L 500.4050, L3100.5700, L400.2010, L3100.5500, L501.0900, L100.0100, L3100.5800 #### [facility] [address] [place] [place], [address] MICROALBUMIN,UR 5.6 mg/L Normal NO RANGE EST. [facility] Comment on above: Performed By: #### L 500.4050, L3100.5700, L400.2010, L3100.5500, L501.0900, L100.0100, L3100.5800 #### [facility] [address] [place], [address] Anti-dsDNA Abon 11-26-2023 ANTI-DNA (DS)AB 26 IU/mL Abnormal 0-9 [facility] Comment on above: Result Comment: Nega tive <5 Equivocal 5 - 9 Positive >9 Performed at: [facility] [id number] Picker Feeder: Pachceo Gramajo PhD, Phone: [phone] Performed By: #### L 500.4050, L3100.5700, L4.2010, L3100.5500, L501.0900, L100.0100, L3100.5800 #### [facility] [address] [place], [address] Complement C3on 11-26-2023 COMP C3 90 mg/dL Normal 82-167 [facility] Comment on above: Result Comment: Perf ormed at: [facility] [id number] Picker Feeder: Pacheco Gramajo PhD, Phone: [phone] Performed By: #### L 500.4050, L3100.5700, L400.2011, L3100.5500, L501.0900, L100.0100, L3100.5800 #### [facility] [address] [place], [address] Complement C4on 11-26-2023 COMPLEMENT, C4 12 mg/dL Normal 12-38 [facility] Comment on above: Performed By: #### L 500.4050, L3100.5700, L400.2010, L3100.5500, L501.0900, L100.0100, L3100.5800 #### [facility] [address] [place], [address] CBC W/Diff, Automatedon 08- PATH REV Reviewed Normal [facility] Comment on above: Result Comment: Leuk openia and neutropenia. Clinical correlation necessary. Sj Geiger M.D. 11/25/23 AMENDED REPORT 11/25/23 1315 PATH REV previously reported as: August Performed By: #### L 500.4050, L3100.5700, L400.2010, L3100.5500, L501.0900, L100.0100, L3100.5800 #### [facility] [address] [place], [address] Comprehensive Metabolic Prof ilon 11-24-2023 Albumin [Mass/Vol] 3.5 g/dL Normal 3.2-5.0 [facility] Comment on above: Performed By: #### L 500.4050, L3100.5700, L400.2010, L3100.5500, L501.0900, L100.0100, L3100.5800 #### [facility] [address] [place], [address] Albumin/Globulin [Mass ratio] 1.0 {ratio} Normal 0.9-2.4 [facility] Comment on above: Performed By: #### L 500.4050, L3100.5700, L400.2010, L3100.5500, L501.0900, L100.0100, L3100.5800 #### [facility] [address] [place], [address] ALK P 68 U/L Normal 45-117 [facility] Comment on above: Performed By: #### L 500.4050, L3100.5700, L400.2010, L3100.5500, L501.0900, L100.0100, L3100.5800 #### [facility] [address] [place], [address] ALT [Catalytic activity/Vol] 19 U/L Normal 13-56 [facility] Comment on above: Performed By: #### L 500.4050, L3100.5700, L400.2010, L3100.5500, L501.0900, L100.0100, L3100.5800 #### [facility] [address] [place], [address] AST [Catalytic activity/Vol] 22 U/L Normal 15-37 [facility] Comment on above: Performed By: #### L 500.4050, L3100.5700, L400.2010, L3100.5500, L501.0900, L100.0100, L3100.5800 #### [facility] [address] [place], [address] Bilirubin [Mass/Vol] 0.50 mg/dL Normal 0.20-1.00 [facility] Comment on above: Result Comment: For patients on eltrombopag therapy, use of Dimension [place] TBIL is not recommended. Performed By: #### L 500.4050, L3100.5700, L400.2011, L3100.5500, L501.0900, L100.0100, L3100.5800 #### [facility] [address] [place], [address] BUN/CRE 16.4 RATIO Normal 10-20 [facility] Comment on above: Performed By: #### L 500.4050, L3100.5700, L400.2010, L3100.5500, L501.0900, L100.0100, L3100.5800 #### [facility] [address] [place], [address] CA,Total 9.4 mg/dL Normal 8.5-10.1 [facility] Comment on above: Performed By: #### L 500.4050, L3100.5700, L400.2010, L3100.5500, L501.0900, L100.0100, L3100.5800 #### [facility] [address] [place], [address] Chloride [Moles/Vol] 107 mmol/L Normal 98-107 [facility] Comment on above: Performed By: #### L 500.4050, L3100.5700, L400.2010, L3100.5500, L501.0900, L100.0100, L3100.5800 #### [facility] [address] [place], [address] CO2 [Moles/Vol] 27.0 mmol/L Normal 21.0-32.0 [facility] Comment on above: Performed By: #### L 500.4050, L3100.5700, L400.2010, L3100.5500, L501.0900, L100.0100, L3100.5800 #### [facility] [address] [place], [address] Creatinine [Mass/Vol] 0.73 mg/dL Normal 0.55-1.02 [facility] Comment on above: Result Comment: The validity of the calculated GFR GFRAA in patients over 70 years has not been determined. Clinical correlation is essential. Performed By: #### L 500.4050, L3100.5700, L400.2010, L3100.5500, L501.0900, L100.0100, L3100.5800 #### [facility] [address] [place], [address] EST GFR - AA 106 mL/min Normal >60 [facility] Comment on above: Result Comment: Afri can Russian GFR Calc Performed By: #### L 500.4050, L3100.5700, L400.2010, L3100.5500, L501.0900, L100.0100, L3100.5800 #### [facility] [address] [place], [address] GAP 4 Low 5-15 [facility] Comment on above: Performed By: #### L 500.4050, L3100.5700, L400.2010, L3100.5500, L501.0900, L100.0100, L3100.5800 #### [facility] [address] [place], [address] GFR/1.73 sq M.predicted among non-blacks MDRD (S/P/Bld) [Vol rate/Area] 88 mL/min/{1.73_m2} Normal >60 [facility] Comment on above: Result Comment: Non- GFR Calc Performed By: #### L 500.4050, L3100.5700, L400.2010, L3100.5500, L501.0900, L100.0100, L3100.5800 #### [facility] [address] [place], [address] Globulin (S) [Mass/Vol] 3.6 g/dL Normal 2.2-4.2 [facility] Comment on above: Performed By: #### L 500.4050, L3100.5700, L400.2010, L3100.5500, L501.0900, L100.0100, L3100.5800 #### [facility] [address] [place], [address] Glucose [Mass/Vol] 84 mg/dL Normal 74-106 [facility] Comment on above: Performed By: #### L 500.4050, L3100.5700, L400.2010, L3100.5500, L501.0900, L100.0100, L3100.5800 #### [facility] [address] [place], [address] Potassium [Moles/Vol] 4.4 mmol/L Normal 3.5-5.1 [facility] Comment on above: Performed By: #### L 500.4050, L3100.5700, L400.2010, L3100.5500, L501.0900, L100.0100, L3100.5800 #### [facility] [address] [place], [address] Sodium [Moles/Vol] 138 mmol/L Normal 136-145 [facility] Comment on above: Performed By: #### L 500.4050, L3100.5700, L400.2010, L3100.5500, L501.0900, L100.0100, L3100.5800 #### [facility] [address] [place], [address] T PROT 7.1 g/dL Normal 6.4-8.2 [facility] Comment on above: Performed By: #### L 500.4050, L3100.5700, L400.2010, L3100.5500, L501.0900, L100.0100, L3100.5800 #### [facility] [address] [place], [address] Urea nitrogen [Mass/Vol] 12 mg/dL Normal 7-18 [facility] Comment on above: Performed By: #### L 500.4050, L3100.5700, L400.2011, L3100.5500, L501.0900, L100.0100, L3100.5800 #### [facility] [address] [place], [address] Protein+Creatinine Ratio,Uri neon 11-24-2023 PROT:CRE RATIO 175 mg/g CRE Normal 0-200 [facility] Comment on above: Performed By: #### L 500.4050, L3100.5700, L400.2010, L3100.5500, L501.0900, L100.0100, L3100.5800 #### [facility] [address] [place], [address] Protein (U) [Mass/Vol] 14.5 mg/dL High <11.9 [facility] Comment on above: Performed By: #### L 500.4050, L3100.5700, L400.2010, L3100.5500, L501.0900, L100.0100, L3100.5800 #### [facility] [address] [place], [address] UR CREAT 82.90 mg/dL Normal NO RANGE EST. [facility] Comment on above: Performed By: #### L 500.4050, L3100.5700, L400.2010, L3100.5500, L501.0900, L100.0100, L3100.5800 #### [facility] [address] [place], [address] Urinalysis, Routine (Dipstic k)on 11-24-2023 BILIRUBIN URINE Negative Normal Negative [facility] Comment on above: Order Comment: CLEAN CATCH Performed By: #### L 500.4050, L3100.5700, L400.2010, L3100.5500, L501.0900, L100.0100, L3100.5800 #### [facility] [address] [place], [address] Clarity (U) Clear Normal Clear [facility] Comment on above: Order Comment: CLEAN CATCH Performed By: #### L 500.4050, L3100.5700, L400.2010, L3100.5500, L501.0900, L100.0100, L3100.5800 #### [facility] [address] [place], [address] Color (U) Yellow Normal Yellow [facility] Comment on above: Order Comment: CLEAN CATCH Performed By: #### L 500.4050, L3100.5700, L400.2010, L3100.5500, L501.0900, L100.0100, L3100.5800 #### [facility] [address] [place], [place], [facility] GLUCOSE, UR Normal Normal Normal [facility] Comment on above: Order Comment: CLEAN CATCH Performed By: #### L 500.4050, L3100.5700, L400.2010, L3100.5500, L501.0900, L100.0100, L3100.5800 #### [facility] [address] [place], [address] KETONE UR Negative Normal Negative [facility] Comment on above: Order Comment: CLEAN CATCH Performed By: #### L 500.4050, L3100.5700, L400.2010, L3100.5500, L501.0900, L100.0100, L3100.5800 #### [facility] [address] [place], [address] LEUK ESTERASE Negative Normal Negative [facility] Comment on above: Order Comment: CLEAN CATCH Performed By: #### L 500.4050, L3100.5700, L400.2010, L3100.5500, L501.0900, L100.0100, L3100.5800 #### [facility] [address] [place], [address] Nitrite Ql (U) Negative Normal Negative [facility] Comment on above: Order Comment: CLEAN CATCH Performed By: #### L 500.4050, L3100.5700, L400.2011, L3100.5500, L501.0900, L100.0100, L3100.5800 #### [facility] [address] [place], [address] OCCULT BLOOD-UR Negative Normal Negative [facility] Comment on above: Order Comment: CLEAN CATCH Performed By: #### L 500.4050, L3100.5700, L400.2010, L3100.5500, L501.0900, L100.0100, L3100.5800 #### [facility] [address] [place], [address] pH UR 7.0 Normal 5.0 - 8.0 [facility] Comment on above: Order Comment: CLEAN CATCH Performed By: #### L 500.4050, L3100.5700, L400.2010, L3100.5500, L501.0900, L100.0100, L3100.5800 #### [facility] [address] [place], [address] PROT DIPSTX Negative Normal Negative [facility] Comment on above: Order Comment: CLEAN CATCH Performed By: #### L 500.4050, L3100.5700, L400.2010, L3100.5500, L501.0900, L100.0100, L3100.5800 #### [facility] [address] [place], [address] SP.GR. DIPSTX 1.010 Normal 1.002-1.030 [facility] Comment on above: Order Comment: CLEAN CATCH Performed By: #### L 500.4050, L3100.5700, L400.2010, L3100.5500, L501.0900, L100.0100, L3100.5800 #### [facility] [address] [place], [address] UROBILI Normal Normal Normal [facility] Comment on above: Order Comment: CLEAN CATCH Performed By: #### L 500.4050, L3100.5700, L400.2011, L3100.5500, L501.0900, L100.0100, L3100.5800 #### [facility] [address] [place], [address] Androstanoloneon 11-13-2023 Androstanolone [Mass/Vol] 18.5 pg/mL Low 24.0-208.0 [facility] Comment on above: Result Comment: INTE RPRETIVE INFORMATION: 7-u-Lroxuoormoanxxyvqlt by [employer] Mass Spectrometry, Serum This test was developed and its performance characteristics determined by [facility]. It has not been cleared or approved by the US Food and Drug Administration. This test was performed in a CLIA certified laboratory and is intended for clinical purposes. Performed By: [facility] [address] [place] [address] Books Binder: Lance Shannon MD, PhD CLIA Number: [id number] Performed By: #### 3 016-3 #### CARLITOS ROBERTSON ([id number]) [facility] ([facility]) [address] [place] [address] 16058 CBC W Auto Differential pane l (Bld)on 11-13-2023 Basophils (Bld) [#/Vol] 0.02 x10*3/uL Normal 0.00-0.10 [facility] Comment on above: Performed By: #### 5 7021-8 #### CARLITOS ROBERTSON ([id number]) [facility] ([facility]) [address] [place] [address] Basophils/100 WBC (Bld) 0.8 % Normal 0.0-2.0 [facility] Comment on above: Performed By: #### 5 7021-8 #### CARLITOS ROBERTSON ([id number]) [facility] ([facility]) [address] [place] [address] 50822 Eosinophils (Bld) [#/Vol] 0.07 x10*3/uL Normal 0.00-0.70 [facility] Comment on above: Performed By: #### 5 7021-8 #### CARLITOS ROBERTSON ([id number]) [facility] ([facility]) [address] [place] [address] 16594 Eosinophils/100 WBC (Bld) 2.7 % Normal 0.0-6.0 [facility] Comment on above: Performed By: #### 7021-8 #### CARLITOS ROBERTSON ([id number]) [facility] ([facility]) [address] [place] [address]1740 Erythrocyte distribution width (RBC) [Ratio] 12.3 % Normal 11.5-14.5 [facility] Comment on above: Performed By: #### 7021-8 #### CARLITOS ROBERTSON ([id number]) [facility] ([facility]) [address] [place] [address] Hematocrit (Bld) [Volume fraction] 40.9 % Normal 36.0-46.0 [facility] Comment on above: Performed By: #### 7021-8 #### CARLITOS ROBERTSON ([id number]) [facility] ([facility]) [address] [place] [address] 64463 Hemoglobin (Bld) [Mass/Vol] 13.1 g/dL Normal 12.0-16.0 [facility] Comment on above: Performed By: #### 5 7021-8 #### CARLITOS ROBERTSON ([id number]) [facility] ([facility]) [address] [place] [address] 32744 Immature granulocytes (Bld) [#/Vol] 0.00 x10*3/uL Normal 0.00-0.70 [facility] Comment on above: Performed By: #### 5 7021-8 #### CARLITOS ROBERTSON ([id number]) [facility] ([facility]) [address] [place] [address] 07521 Immature granulocytes/100 WBC (Bld) 0.0 % Normal 0.0-0.9 [facility] Comment on above: Result Comment: Sharona ture Granulocyte Count (IG) includes promyelocytes, myelocytes and metamyelocytes but does not include bands. Percent differential counts (%) should be interpreted in the context of the absolute cell counts (cells/UL). Performed By: #### 5 7021-8 #### CARLITOS ROBERTSON ([id number]) [facility] ([facility]) [address] [place] [address] Lymphocytes (Bld) [#/Vol] 0.66 x10*3/uL Low 1.20-4.80 [facility] Comment on above: Performed By: #### 5 7021-8 #### CARLITOS ROBERTSON ([id number]) [facility] ([facility]) [address] [place] [address] Lymphocytes/100 WBC (Bld) 25.1 % Normal 13.0-44.0 [facility] Comment on above: Performed By: #### 5 7021-8 #### CARLITOS ROBERTSON ([id number]) [facility] ([facility]) [address] [place] [address] 75379 MCH (RBC) [Entitic mass] 32.3 pg Normal 26.0-34.0 [facility] Comment on above: Performed By: #### 5 7021-8 #### CARLITOS ROBERTSON ([id number]) [facility] ([facility]) [address] [place] [address] 36524 MCHC (RBC) [Mass/Vol] 32.0 g/dL Normal 32.0-36.0 [facility] Comment on above: Performed By: #### 5 7021-8 #### CARLITOS ROBERTSON ([id number]) [facility] ([facility]) [address] [place] [address] 44934 MCV (RBC) [Entitic vol] 101 fL High 80-100 [facility] Comment on above: Performed By: #### 5 7021-8 #### CARLITOS ROBERTSON ([id number]) [facility] ([facility]) [address] [place] [address] 59557 Monocytes (Bld) [#/Vol] 0.39 x10*3/uL Normal 0.10-1.00 [facility] Comment on above: Performed By: #### 5 7021-8 #### CARLITOS ROBERTSON ([id number]) [facility] ([facility]) [address] [place] [address] 33004 Monocytes/100 WBC (Bld) 14.8 % Normal 2.0-10.0 [facility] Comment on above: Performed By: #### 5 7021-8 #### CARLITOS ROBERTSON ([id number]) [facility] ([facility]) [address] [place] [address] 40441 Neutrophils (Bld) [#/Vol] 1.49 x10*3/uL Normal 1.20-7.70 [facility] Comment on above: Result Comment: Perc ent differential counts (%) should be interpreted in the context of the absolute cell counts (cells/uL). Performed By: #### 5 7021-8 #### CARLITOS ROBERTSON ([id number]) [facility] ([facility]) [address] [place] [address] 95236 Neutrophils/100 WBC (Bld) 56.6 % Normal 40.0-80.0 [facility] Comment on above: Performed By: #### 5 7021-8 #### CARLITOS ROBERTSON ([id number]) [facility] ([facility]) [address] [place] [address] 76479 Nucleated RBC/100 WBC (Bld) [Ratio] 0.0 /100 WBCs Normal 0.0-0.0 [facility] Comment on above: Performed By: #### 5 7021-8 #### CARLITOS ROBERTSON ([id number]) [facility] ([facility]) [address] [place] [address] 13539 Platelets (Bld) [#/Vol] 181 x10*3/uL Normal 150-450 [facility] Comment on above: Performed By: #### 5 7021-8 #### CARLITOS ROBERTSON ([id number]) [facility] ([facility]) [address] [place] [address] 29658 RBC (Bld) [#/Vol] 4.05 x10*6/uL Normal 4.00-5.20 [facility] Comment on above: Performed By: #### 5 7021-8 #### CARLITOS ROBERTSON ([id number]) [facility] ([facility]) [address] [place] [address] 38606 WBC (Bld) [#/Vol] 2.6 x10*3/uL Low 4.4-11.3 [facility] Comment on above: Performed By: #### 5 7021-8 #### CARLITOS ROBERTSON ([id number]) [facility] ([facility]) [address] [place] [address] 88650 Calcidiolon 11-13-2023 25-hydroxyvitamin D3 [Mass/Vol] 57 ng/mL Normal 30-100 [facility] Comment on above: Order Comment: Defic iency: < 20 ng/mlInsufficiency: 20-29 ng/mlSufficiency: 30-100 ng/mlThis assay accurately quantifies the sum of Vitamin D3, 25-Hydroxy and Vitamin D2,25-Hydroxy. Performed By: #### 2 4331-1 #### CARLITOS ROBERTSON ([id number]) [facility] ([facility]) [address] [place] [address] 87425 Cobalaminson 11-13-2023 Cobalamin (Vitamin B12) [Mass/Vol] 936 pg/mL High 211-911 [facility] Comment on above: Performed By: #### 2 132-9 #### MINNA Goodwin ([id number]) [facility] ([facility]) [id number] [place] [address] 12689 Comprehensive metabolic 2000 panelon 11-13-2023 Albumin BCP dye [Mass/Vol] 4.2 g/dL Normal 3.4-5.0 [facility] Comment on above: Performed By: #### 2 4323-8 #### CARLITOS ROBERTSON ([id number]) [facility] ([facility]) [address] [place] [address] 87999 ALP [Catalytic activity/Vol] 55 U/L Normal 33-110 [facility] Comment on above: Performed By: #### 2 4323-8 #### CARLITOS ROBERTSON ([id number]) [facility] ([facility]) [address] [place] [address] ALT With P-5'-P [Catalytic activity/Vol] 12 U/L Normal 7-45 [facility] Comment on above: Result Comment: Usha ents treated with Sulfasalazine may generate falsely decreased results for ALT. Performed By: #### 2 4323-8 #### CARLITOS ROBERTSON ([id number]) [facility] ([facility]) [address] [place] [address] Anion gap [Moles/Vol] 11 mmol/L Normal 10-20 [facility] Comment on above: Performed By: #### 2 4322-8 #### CARLITOS ROBERTSON ([id number]) [facility] ([facility]) [address] [place] [address] AST With P-5'-P [Catalytic activity/Vol] 20 U/L Normal 9-39 [facility] Comment on above: Performed By: #### 2 4322-8 #### CARLITOS ROBERTSON ([id number]) [facility] ([facility]) [address] [place] [address] Bilirubin [Mass/Vol] 0.5 mg/dL Normal 0.0-1.2 [facility] Comment on above: Performed By: #### 2 4322-8 #### CARLITOS ROBERTSON ([id number]) [facility] ([facility]) [address] [place] [address] Calcium [Mass/Vol] 9.3 mg/dL Normal 8.6-10.3 [facility] Comment on above: Performed By: #### 2 3-8 #### CARLITOS ROBERTSON ([id number]) [facility] ([facility]) [address] [place] [address] Chloride [Moles/Vol] 104 mmol/L Normal 98-107 [facility] Comment on above: Performed By: #### 2 3-8 #### CARLITOS ROBERTSON ([id number]) [facility] ([facility]) [address] [place] [address] CO2 [Moles/Vol] 28 mmol/L Normal 21-32 [facility] Comment on above: Performed By: #### 2 4323-8 #### CARLITOS ROBERTSON ([id number]) [facility] ([facility]) [address] [place] [address] 16408 Creatinine [Mass/Vol] 0.71 mg/dL Normal 0.50-1.05 [facility] Comment on above: Performed By: #### 2 4323-8 #### CARLITOS ROBERTSON ([id number]) [facility] ([facility]) [address] [place] [address] 18953 GFR/1.73 sq M.predicted MDRD (S/P/Bld) [Vol rate/Area] mL/min/{1.73_m2} Normal >60 [facility] Comment on above: Result Comment: Calc ulations of estimated GFR are performed using the 2020 CKD-EPI Study Refit equation without the race variable for the IDMS-Traceable creatinine methods. https://jasn.asnjournals.org/content/early//ASN.2020 509756 Performed By: #### 2 4323-8 #### CARLITOS ROBERTSON ([id number]) [facility] ([facility]) [address] [place] [address] 64831 Glucose [Mass/Vol] 83 mg/dL Normal 74-99 [facility] Comment on above: Performed By: #### 2 4323-8 #### CARLITOS ROBERTSON ([id number]) [facility] ([facility]) [address] [place] [address] 33235 Potassium [Moles/Vol] 4.5 mmol/L Normal 3.5-5.3 [facility] Comment on above: Performed By: #### 2 4323-8 #### CARLITOS ROBERTSON ([id number]) [facility] ([facility]) [address] [place] [address] 67789 Protein [Mass/Vol] 6.8 g/dL Normal 6.4-8.2 [facility] Comment on above: Performed By: #### 2 4323-8 #### CARLITOS ROBERTSON ([id number]) [facility] ([facility]) [facility] [place] [address] Sodium [Moles/Vol] 138 mmol/L Normal 136-145 [facility] Comment on above: Performed By: #### 2 4323-8 #### CARLITOS ROBERTSON ([id number]) [facility] ([facility]) [address] [place] [address] 48555 Urea nitrogen [Mass/Vol] 16 mg/dL Normal 6-23 [facility] Comment on above: Performed By: #### 2 4323-8 #### CARLITOS ROBERTSON ([id number]) [facility] ([facility]) [address] [place] [address] 41120 Dehydroepiandrosteroneon DHEA [Mass/Vol] 0.756 ng/mL Normal 0.630-4.700 [facility] Comment on above: Result Comment: INTERPRETIVE INFORMATION: Dehydroepiandrosterone, Females 18 years and older: Postmenopausal: 0.60-5.73 ng/mL REFERENCE INTERVAL: Dehydroepiandrosterone by TMS Access complete set of age- and/or gender-specific reference intervals for this test in the [employer] [facility] Test Directory ([employer]). This test was developed and its performance characteristics determined by [facility]. It has not been cleared or approved by the [place] Food and Drug Administration. This test was performed in a CLIA certified laboratory and is intended for clinical purposes. Performed By: [facility] [address] [place] [address] Books Binder: Lance Shannon MD, PhD CLIA Number: [id number] Performed By: #### 3 016-3 #### CARLITOS ROBERTSON ([id number]) [facility] ([facility]) [address] [place] [address] 16076 Dehydroepiandrosterone sulfa jazmín 11-13-2023 DHEA-S [Mass/Vol] 32 ug/dL Normal 30-260 [facility] Comment on above: Order Comment: MATUR ITY-BASED REFERENCE RANGES:PUBERTAL (KAE) STAGE MALE FEMALE I 5 - 265 5 - 125 II 15 - 380 15 - 150 III 60 - 505 20 - 535 IV 65 - 560 35 - 485 V 165 - 500 75 - 530Biotin interference may cause falsely elevated results. Patients taking a Biotin dose of up to 5 mg/day should refrain from taking Biotin for 24 hours before sample collection. Providers may contact their local laboratory for further information. Performed By: #### 2 4331-1 #### CARLITOS ROBERTSON ([id number]) [facility] ([facility]) [address] [place], [place] [id number] Estroneon 11-13-2023 E1 [Mass/Vol] 16.9 pg/mL [facility] Comment on above: Result Comment: REFE RENCE INTERVAL: Estrone by Radiator Core Tester Pre-menopausal: Early follicular <150.0 pg/mL Pre-menopausal: Late follicular 100.0-250.0 pg/mL Pre-menopausal: Luteal <200.0 pg/mL Post-menopausal 3.0-32.0 pg/mL INTERPRETIVE INFORMATION: Estrone by Radiator Core Tester For a complete set of all established reference intervals, refer to [employer]td[employer]/Tests/Pub/[id number]. This test was developed and its performance characteristics determined by [facility]. It has not been cleared or approved by the [place] Food and Drug Administration. This test was performed in a CLIA certified laboratory and is intended for clinical purposes. Performed By: [facility] [address] [place] [address] 47705 Books Binder: Lance Shannon MD, PhD CLIA Number: [id number] Performed By: #### 3 016-3 #### CARLITOS ROBERTSON ([id number]) [facility] ([facility]) [address] [place], [place] [id number] Ferritinon 11-13-2023 Ferritin [Mass/Vol] 157 ng/mL High 8-150 [facility] Comment on above: Performed By: #### 2 276-4 #### CARLITOS ROBERTSON ([id number]) [facility] ([facility]) [address] [place] [address] 12404 Folateon 11-13-2023 Folate [Mass/Vol] 18.4 ng/mL Normal >5.0 [facility] Comment on above: Order Comment: Low < 3.4Borderline 3.4-5.0Normal >5.0Patients receiving more than 5 mg/day of biotin may have interference in test results. A sample should be taken no sooner than eight hours after previous dose. Contact the testing laboratory for additional information. Performed By: #### 2 4331-1 #### CARLITOS ROBERTSON ([id number]) [facility] ([facility]) [address] [place] [address] Follitropin and Lutropin oscar el Qnon 11-13-2023 Follitropin Qn 99.4 IU/L [facility] Comment on above: Result Comment: FSH Ref Values Follicular 2.0-12.0 IU/L Mid-Cycle 12.0-25.0 IU/L Luteal Phase 2.0-12.0 IU/L Menopause 30.0-150.0 IU/L Pre-puberty 50% Adult IU/L Adult Male 2.0-10.0 IU/L Infants 0.0-1.0 IU/L Performed By: #### 2 4331-1 #### CARLITOS ROBERTSON ([id number]) [facility] ([facility]) [address] [place] [address] Lutropin Qn 48.6 IU/L [facility] Comment on above: Result Comment: LH R eference Values Follicular Phase 1.9-12.5 IU/L Mid-Cycle 8.7-76.3 IU/L Luteal Phase 0.5-16.9 IU/L Post Menopause 5.0-55.2 IU/L Children 0- 6.0 IU/L Adult Male 18-70 years 1.5- 9.3 IU/L Adult Male >70 years 3.1-34.6 IU/L Performed By: #### 2 4331-1 #### CARLITOS ROBERTSON ([id number]) [facility] ([facility]) [facility] [place] [id number] HbA1c (Bld) [Mass fraction]o n 11-13-2023 Average glucose Estimated from glycated hemoglobin (Bld) [Mass/Vol] 103 mg/dL Normal Not Established [facility] Comment on above: Order Comment: Diagn osis of Oekdbmzw-NwnhpwMbl-Edkmqczh: < or = 5.6%Increased risk for developing diabetes: 5.7-6.4%Diagnostic of diabetes: > or = 6.5% Performed By: #### 2 4331-1 #### CARLITOS ROBERTSON ([id number]) [facility] ([facility]) [address] [place], [place] [address] Hemoglobin A1c/Hemoglobin.to reggie 11-13-2023 HbA1c (Bld) [Mass fraction] 5.2 % Normal see below [facility] Comment on above: Order Comment: Diagn osis of Hwfxdtiq-DbrohaUsf-Jsdnjzod: < or = 5.6%Increased risk for developing diabetes: 5.7-6.4%Diagnostic of diabetes: > or = 6.5% Performed By: #### 2 4331-1 #### CARLITOS ROBERTSON ([id number]) [facility] ([facility]) [address] [place] [address] 65165 Homocysteineon 11-13-2023 Homocysteine [Moles/Vol] 10.44 umol/L Normal 5.00-13.90 [facility] Comment on above: Order Comment: Refer ence values apply to fasting specimens only. Non-fasting specimens produce slightly higher and likely clinically insignificant changes in homocysteine levels. Performed By: #### 2 4331-1 #### CARLITOS ROBERTSON ([id number]) [facility] ([facility]) [address] [place] [address] 69570 Insulinon 11-13-2023 Insulin Qn 5 u[IU]/mL Normal 3-25 [facility] Comment on above: Order Comment: Refer ence values apply to fasting specimens. Performed By: #### 2 4331-1 #### CARILTOS ROBERTSON ([id number]) [facility] ([facility]) [address] [place] [address] 38427 Iron and Iron binding capaci ty panelon 11-13-2023 Iron [Mass/Vol] 86 ug/dL Normal 35-150 [facility] Comment on above: Performed By: #### 5 0190-8 #### CARLITOS ROBERTSON ([id number]) [facility] ([facility]) [address] [place] [address] Iron binding capacity [Mass/Vol] 315 ug/dL Normal 240-445 [facility] Comment on above: Performed By: #### 5 0190-8 #### CARLITOS ROBERTSON ([id number]) [facility] ([facility]) [address] [place] [address] Iron binding capacity.unsaturated [Mass/Vol] 229 ug/dL Normal 110-370 [facility] Comment on above: Performed By: #### 5 0190-8 #### CARLITOS ROBERTSON ([id number]) [facility] ([facility]) [address] [place] [address] Iron saturation [Mass fraction] 27 % Normal 25-45 [facility] Comment on above: Performed By: #### 5 0190-8 #### CARLITOS ROBERTSON ([id number]) [facility] ([facility]) [address] [place] [address] Leptinon 11-13-2023 Leptin [Mass/Vol] 9.2 ng/mL Normal 0.5-15.2 [facility] Comment on above: Result Comment: INTE RPRETIVE INFORMATION: Leptin Quant by MARY ANNE This test was developed and its performance characteristics determined by [facility]. It has not been cleared or approved by the US Food and Drug Administration. This test was performed in a CLIA certified laboratory and is intended for clinical purposes. Performed By: [facility] [address] [place] [address] Books Binder: Lance Shannon MD, PhD CLIA Number: [id number] Performed By: #### 3 016-3 #### CARLITOS ROBERTSON ([id number]) [facility] ([facility]) [address] [place] [address] MISCELLANEOUS LAB TESTon SCAN RESULT See Scanned Result [facility] Comment on above: Performed By: #### 3 016-3 #### CARLITOS ROBERTSON ([id number]) [facility] ([facility]) [address] [place] [address] Performed By: #### 2 132-9 #### CARLITOS ROBERTSON ([id number]) [facility] ([facility]) [address] [place] [address] 97603 NMR LIPOPROTEINon 11-13-2023 Cholesterol [Mass/Vol] 148 mg/dL Normal 100-199 [facility] Comment on above: Order Comment: TSH t esting is performed using different testing methodology at [facility] than at other [facility]. Direct result comparisons should only be made within the same method. Performed By: #### 3 016-3 #### CARLITOS ROBERTSON ([id number]) [facility] ([facility]) [address] [place], [place] [address] Cholesterol in HDL [Mass/Vol] 81 mg/dL Normal >39 [facility] Comment on above: Order Comment: TSH t esting is performed using different testing methodology at [facility] than at other [facility]. Direct result comparisons should only be made within the same method. Performed By: #### 3 016-3 #### CARLITOS ROBERTSON ([id number]) [facility] ([facility]) [address] [place], [place] [address] Cholesterol in LDL [Mass/Vol] 55 mg/dL Normal 0-99 [facility] Comment on above: Order Comment: TSH t esting is performed using different testing methodology at [facility] than at other [facility]. Direct result comparisons should only be made within the same method. Result Comment: Opti mal < 100 Above optimal 100 - 129 Borderline 130 - 159 High 160 - 189 Very high > 189 Performed By: #### 3 016-3 #### CARLITOS ROBERTSON ([id number]) [facility] ([facility]) [address] [place], [place] [address] Lipoprotein.alpha [Moles/Vol] 29.6 umol/L Low >=30.5 [facility] Comment on above: Order Comment: TSH t esting is performed using different testing methodology at [facility] than at other [facility]. Direct result comparisons should only be made within the same method. Performed By: #### 3 016-3 #### CARLITOS ROBERTSON ([id number]) [facility] ([facility]) [address] [place] [address] 76468 Lipoprotein.beta.subpar ticle [Entitic length] 21.4 nm Normal >20.5 [facility] Comment on above: Order Comment: TSH t esting is performed using different testing methodology at [facility] than at other [facility]. Direct result comparisons should only be made within the same method. Result Comment: INTERPRETATIVE INFORMATION PARTICLE CONCENTRATION AND SIZE <--Lower CVD Risk Higher CVD Risk--> LDL AND HDL PARTICLES Percentile in Reference Population HDL-P (total) High 75th 50th 25th Low >34.9 34.9 30.5 26.7 <26.7 Small LDL-P Low 25th 50th 75th High <[phone] >839 LDL Size <-Large (Pattern A)-> <-Small (Pattern B)-> 23.0 20.6 20.5 19.0 Small LDL-P and LDL Size are associated with CVD risk, but not after LDL-P is taken into account. Performed By: #### 3 016-3 #### CARLITOS ROBERTSON ([id number]) [facility] ([facility]) [address] [place], [place] [address] Lipoprotein.beta.subpar ticle [Moles/Vol] 559 nmol/L Normal <1000 [facility] Comment on above: Order Comment: TSH t esting is performed using different testing methodology at [facility] than at other [facility]. Direct result comparisons should only be made within the same method. Result Comment: Low < 1000 Moderate 1000 - 1299 Borderline-High 1300 - 1599 High 1600 - 2000 Very High > 2000 Performed By: #### 3 016-3 #### CARLITOS ROBERTSON ([id number]) [facility] ([facility]) [address] [place] [address] Lipoprotein.beta.subpar ticle.small [Moles/Vol] <90 Normal <=527 [facility] Comment on above: Order Comment: TSH t esting is performed using different testing methodology at [facility] than at other [facility]. Direct result comparisons should only be made within the same method. Performed By: #### 3 016-3 #### CARLITOS ROBERTSON ([id number]) [facility] ([facility]) [address] [place], [place] [address] Triglyceride [Mass/Vol] 57 mg/dL Normal 0-149 [facility] Comment on above: Order Comment: TSH t esting is performed using different testing methodology at [facility] than at other [facility]. Direct result comparisons should only be made within the same method. Performed By: #### 3 016-3 #### CARLITOS ROBERTSON ([id number]) [facility] ([facility]) [address] [place] [address] 47520 Sex hormone binding globulin on 11-13-2023 Sex hormone binding globulin [Moles/Vol] 103 nmol/L Normal 17-125 [facility] Comment on above: Result Comment: REFE RENCE INTERVAL: Sex Hormone Binding Globulin Access complete set of age- and/or gender-specific reference intervals for this test in the [employer] [facility] Test Directory ([employer]). Performed By: [facility] [address] [place] [address] Books Binder: Lance Shannon MD, PhD CLIA Number: [id number] Performed By: #### 3 016-3 #### CARLITOS ROBERTSON ([id number]) [facility] ([facility]) [address] [place], [place] [address] THYROGLOBULIN AND ANTITHYROG LOBULINon 11-13-2023 THYROGLOBULIN 4.2 ng/mL Normal 1.3-31.8 [facility] Comment on above: Result Comment: INTE RPRETIVE INFORMATION: Thyroglobulin, Serum or Plasma Specimens negative for thyroglobulin antibodies (TgAb) are tested for thyroglobulin (Tg) by chemiluminescent immunoassay (MARY NANE) using the [employer] Access DxI method. Specimens with TgAb results above the upper reference limit are tested for Tg by high-performance liquid chromatography-tandem mass spectrometry (LC-MS/MS). Results obtained with different test methods or kits cannot be used interchangeably. Tg results, regardless of concentration, should not be interpreted as absolute evidence for the presence or absence of papillary or follicular thyroid cancer. Tg testing is not recommended for use as a screening procedure to detect the presence of thyroid cancer in the general population. Performed By: #### 3 016-3 #### CARLITOS ROBERTSON ([id number]) [facility] ([facility]) [address] [place] [address] 17200 THYROGLOBULIN AB (IU/ML) IN SER/PLAS <0.9 Normal 0.0-4.0 [facility] Comment on above: Result Comment: INTE RPRETIVE INFORMATION: Thyroglobulin Antibody A value of 4.0 IU/mL or less indicates a negative result for thyroglobulin antibodies. The Thyroglobulin Antibody assay is being performed using the [employer] Access DxI method. Performed By: #### 3 016-3 #### CARLITOS ROBERTSON ([id number]) [facility] ([facility]) [address] [place] [address] 98844 THYROGLOBULIN LC-MS/MS Not Applicable Normal 1.3-31.8 [facility] Comment on above: Result Comment: INTE RPRETIVE INFORMATION: Thyroglobulin by LC-MS/MS, Serum/Plasma Lower limit of detection for Thyroglobulin by LC-MS/MS is 0.5 ng/mL. This test was developed and its performance characteristics determined by [facility]. It has not been cleared or approved by the US Food and Drug Administration. This test was performed in a CLIA certified laboratory and is intended for clinical purposes. Performed By: [facility] [address] [place] [address]83[address] Books Binder: Lance Shannon MD, PhD CLIA Number: [id number] Performed By: #### 3 016-3 #### CARLITOS ROBERTSON ([id number]) [facility] ([facility]) [address] [place] [address] 60946 Testosteroneon 11-13-2023 Testosterone [Mass/Vol] 8 ng/dL Normal 2-45 [facility] Comment on above: Result Comment: For additional information, please refer to http://education.zlien/faq/ [email or web address] (This link is being provided for informational/ educational purposes only.) This test was developed and its analytical performance characteristics have been determined by [employer] [place], [place]. It has not been cleared or approved by the U.S. Food and Drug Administration. This assay has been validated pursuant to the CLIA regulations and is used for clinical purposes. Performed By: #### 3 016-3 #### CARLITOS ROBERTSON ([id number]) [facility] ([facility]) [address] [place] [address] 74751 Thyroperoxidase Abon 024 TPO Ab Qn 30 [IU]/mL Normal <=60 [facility] Comment on above: Order Comment: Negat raisa: <=60 U/mLPositive: >60 U/mL Performed By: #### 2 4331-1 #### CARLITOS ROBERTSON ([id number]) [facility] ([facility]) [address] [place] [address] 98250 Thyrotropinon 11-13-2023 TSH Qn 1.65 m[IU]/L Normal 0.44-3.98 [facility] Comment on above: Order Comment: TSH t esting is performed using different testing methodology at [facility] than at [facility]. Direct result comparisons should only be made within the same method. Performed By: #### 3 016-3 #### MINNA Goodwin ([id number]) [facility] ([facility]) [address] [place], [place] [address] Thyroxine.freeon 11-13-2023 Free T4 [Mass/Vol] 1.21 ng/dL Normal 0.78-1.48 [facility] Comment on above: Order Comment: Thyro xine Free testing is performed using different testing methodology at [facility] than at [facility]. Direct result comparisons should only be made within the same method.Biotin can cause falsely elevated free T4 results. Patients taking a Biotin dose of up to 10 mg/day should refrain from taking Biotin for 24 hours before sample collection. Patient taking a Biotin dose of >10 mg/day should consult with their physician or the laboratory before the blood draw. Performed By: #### 2 4331-1 #### CARLITOS ROBERTSON ([id number]) [facility] ([facility]) [address] [place] [address] 14695 Triiodothyronineon T3 [Mass/Vol] 128 ng/dL Normal 60-200 [facility] Comment on above: Performed By: #### 2 4331-1 #### URBINA MARCELO ([id number]) [facility] ([facility]) [address] [place], [place] [address] Triiodothyronine.reverseon 0 11-13-2023 T3.reverse [Mass/Vol] 15.7 ng/dL Normal 9.0-27.0 [facility] Comment on above: Result Comment: INTE RPRETIVE INFORMATION: Triiodothyronine, Reverse - LC-MS/MS This test was developed and its performance characteristics determined by [facility]. It has not been cleared or approved by the US Food and Drug Administration. This test was performed in a CLIA certified laboratory and is intended for clinical purposes. 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 COMPARISON: Digital mammograms dated 10/10/2021 FINDINGS: CC and MLO 2D digital mammograms and digital breast tomosynthesis images were obtained of the bilateral breasts. 3-D volume images were reconstructed in 4 views at an independent workstation as 1 mm slices through the breasts in both the CC and MLO projections. Density: The breast tissue is heterogeneously dense, which may obscure small masses. No discrete mass or focal asymmetry is identified. No suspicious microcalcifications or foci of architectural distortion are seen. There has been no significant change. This study was interpreted with CAD. IMPRESSION: No mammographic evidence of malignancy. BI-RADS CATEGORY: BI-RADS Category: 1 Negative. Recommendation: Routine Screening Mammogram in 1 Year. Recommended Date: 1 Year. Laterality: Bilateral. MACRO: None Signed by: Saji Tao 10/01/2023 9:02 AM Dictation workstation: [id number] [facility] Cobalaminson 09-28-2023 Cobalamin (Vitamin B12) [Mass/Vol] 976 pg/mL High 211-911 [facility] Comment on above: Performed By: #### 2 132-9 #### CARLITOS ROBERTSON ([id number]) [facility] ([facility]) [address] [place] [address] 25179 Lipid 1996 panelon Cholesterol [Mass/Vol] 142 mg/dL Normal 0-199 Un [facility] Comment on above: Result Comment: Age Desirable Borderline High High 0-19 Y 0 - 169 170 - 199 >/= 200 20-24 Y 0 - 189 190 - 224 >/= 225 >24 Y 0 - 199 200 - 239 >/= 240 All ranges are based on fasting samples. Specific therapeutic targets will vary based on patient-specific cardiac risk. Pediatric guidelines reference:Pediatrics 2011, 128(S5).Adult guidelines reference: NCEP ATPIII Guidelines,KEVIN 2001, 258:2486-97 Venipuncture immediately after or during the administration of Metamizole may lead to falsely low results. Testing should be performed immediately prior to Metamizole dosing. Performed By: #### 2 4331-1 #### CARLITOS ROBERTSON ([id number]) [facility] ([facility]) [address] [place] [address] 64566 Cholesterol in HDL [Mass/Vol] 75.0 mg/dL [facility] Comment on above: Result Comment: Age Very Low Low Normal High 0-19 Y < 35 < 40 40-45 ---- 20-24 Y ---- < 40 >45 ---- >24 Y ---- < 40 40-60 >60 Performed By: #### 2 4331-1 #### CARLITOS ROBERTSON ([id number]) [facility] ([facility]) [facility] [place] [address] Cholesterol in LDL [Mass/Vol] 56 mg/dL Normal <=99 [facility] Comment on above: Result Comment: Near Borderline AGE Desirable Optimal High High Very High 0-19 Y 0 - 109 --- 110-129 >/= 130 ---- 20-24 Y 0 - 119 --- 120-159 >/= 160 ---- >24 Y 0 - 99 100-129 130-159 160-189 >/=190 Performed By: #### 2 4331-1 #### CARLITOS ROBERTSON ([id number]) [facility] ([facility]) [address] [place] [address] 25183 Cholesterol in VLDL [Mass/Vol] 11 mg/dL Normal 0-40 [facility] Comment on above: Performed By: #### 2 4331-1 #### CARLITOS ROBERTSON ([id number]) [facility] ([facility]) [address] [place] [address] 04010 CHOLESTEROL/HDL RATIO 1.9 Normal [facility] Comment on above: Result Comment: Ref Values Desirable < 3.4 High Risk > 5.0 Performed By: #### 2 4331-1 #### CARLITOS ROBERTSON ([id number]) [facility] ([facility]) [address] [place] [address] 81729 NON HDL CHOLESTEROL 67 mg/dL Normal 0-149 [facility] Comment on above: Result Comment: Age Desirable Borderline High High Very High 0-19 Y 0 - 119 120 - 144 >/= 145 >/= 160 20-24 Y 0 - 149 150 - 189 >/= 190 ---- >24 Y 30 mg/dL above LDL Cholesterol goal Performed By: #### 2 4331-1 #### CARLITOS ROBERTSON ([id number]) [facility] ([facility]) [address] [place] [address] 38442 Triglyceride [Mass/Vol] 56 mg/dL Normal 0-149 [facility] Comment on above: Result Comment: Age Desirable Borderline High High Very High 0 D-90 D 19 - 174 ---- ---- ---- 91 D- 9 Y 0 - 74 75 - 99 >/= 100 ---- 10-19 Y 0 - 89 90 - 129 >/= 130 ---- 20-24 Y 0 - 114 115 - 149 >/= 150 ---- >24 Y 0 - 149 150 - 199 200- 499 >/= 500 Venipuncture immediately after or during the administration of Metamizole may lead to falsely low results. Testing should be performed immediately prior to Metamizole dosing. Performed By: #### 2 4331-1 #### CARLITOS ROBERTSON ([id number]) [facility] ([facility]) [facility] [place] [address] Magnesiumon 09-28-2023 Magnesium [Mass/Vol] 1.91 mg/dL Normal 1.60-2.40 [facility] Comment on above: Performed By: #### 1 9123-9 #### CARLITOS ROBERTSON ([id number]) [facility] ([facility]) [address] [place] [address] 56166 Thyrotropinon 09-28-2023 TSH Qn 2.38 m[IU]/L Normal 0.44-3.98 [facility] Comment on above: Order Comment: TSH t esting is performed using different testing methodology at [facility] than at other [facility]. Direct result comparisons should only be made within the same method. Performed By: #### 3 016-3 #### CARLITOS ROBERTSON ([id number]) [facility] ([facility]) [address] [place] [address] 00260 Anti-dsDNA Abon 09-04-2023 ANTI-DNA (DS)AB 26 IU/mL Abnormal 0-9 [facility] Comment on above: Result Comment: Nega tive <5 Equivocal 5 - 9 Positive >9 Performed at: [address] [id number] Picker Feeder: Pacheco Gramajo PhD, Phone: [phone] Performed By: #### L 500.4050, L3100.5700, L400.2011, L3100.5500, L501.0900, L100.0100, L3100.5800 #### [facility] [address] [place], [address] Complement C3on 09-04-2023 COMP C3 95 mg/dL Normal 82-167 [facility] Comment on above: Result Comment: Perf ormed at: [facility] [address] [id number] Picker Feeder: Pacheco Gramajo PhD, Phone: [phone] Performed By: #### L 500.4050, L3100.5700, L400.2010, L3100.5500, L501.0900, L100.0100, L3100.5800 #### [facility] [address] [place], [address] Complement C4on 09-04-2023 COMPLEMENT, C4 15 mg/dL Normal 12-38 [facility] Comment on above: Performed By: #### L 500.4050, L3100.5700, L4.2010, L3100.5500, L501.0900, L100.0100, L3100.5800 #### [facility] [address] [place], [address] CBC W/Diff, Automatedon 08-06 Absolute Lymph 0.61 X10 3/uL Low 0.83-4.51 [facility] Comment on above: Performed By: #### L 500.4050, L3100.5700, L400.2010, L3100.5500, L501.0900, L100.0100, L3100.5800 #### [facility] [address] [place], [address] Absolute Neut 1.5 X10 3/uL Low 2.0-7.7 [facility] Comment on above: Performed By: #### L 500.4050, L3100.5700, L400.2010, L3100.5500, L501.0900, L100.0100, L3100.5800 #### [facility] [address] [place], [address] Basophils/100 WBC (Bld) 1.1 % High 0-1 [facility] Comment on above: Performed By: #### L 500.4050, L3100.5700, L400.2011, L3100.5500, L501.0900, L100.0100, L3100.5800 #### [facility] [address] [place], [address] Eosinophils/100 WBC (Bld) 3.4 % Normal 0-5 [facility] Comment on above: Performed By: #### L 500.4050, L3100.5700, L400.2010, L3100.5500, L501.0900, L100.0100, L3100.5800 #### [facility] [facility] [address] [place], [address] Erythrocyte distribution width (RBC) [Ratio] 12.7 % Normal 11.6-14.6 [facility] Comment on above: Performed By: #### L 500.4050, L3100.5700, L400.2010, L3100.5500, L501.0900, L100.0100, L3100.5800 #### [facility] [address] [place], [address] Hematocrit (Bld) [Volume fraction] 41.0 % Normal 37-47 [facility] Comment on above: Performed By: #### L 500.4050, L3100.5700, L400.2010, L3100.5500, L501.0900, L100.0100, L3100.5800 #### [facility] [address] [place], [address] Hemoglobin (Bld) [Mass/Vol] 13.3 g/dL Normal 12.0-15.0 [facility] Comment on above: Performed By: #### L 500.4050, L3100.5700, L400.2010, L3100.5500, L501.0900, L100.0100, L3100.5800 #### [facility] [address] [place], [address] IG% 0.000 Normal 0.0-0.9 [facility] Comment on above: Result Comment: IG% - Immature Granulocytes (promyelocytes, myelocytes and metamyelocytes) > 1% indicates that a LEFT SHIFT is Present. Performed By: #### L 500.4050, L3100.5700, L400.2010, L3100.5500, L501.0900, L100.0100, L3100.5800 #### [facility] [address] [place], [address] Lymphocytes/100 WBC (Bld) 22.8 % Normal 19-41 [facility] Comment on above: Performed By: #### L 500.4050, L3100.5700, L400.2010, L3100.5500, L501.0900, L100.0100, L3100.5800 #### [facility] [address] [place], [address] MCH (RBC) [Entitic mass] 32.3 pg High 27.0-32.0 [facility] Comment on above: Performed By: #### L 500.4050, L3100.5700, L400.2010, L3100.5500, L501.0900, L100.0100, L3100.5800 #### [facility] [address] [place], [address] MCHC (RBC) [Mass/Vol] 32.4 g/dL Normal 32-36 [facility] Comment on above: Performed By: #### L 500.4050, L3100.5700, L400.2010, L3100.5500, L501.0900, L100.0100, L3100.5800 #### [facility] [address] [place], [address] MCV (RBC) [Entitic vol] 99.5 fL High 81-99 [facility] Comment on above: Performed By: #### L 500.4050, L3100.5700, L400.2011, L3100.5500, L501.0900, L100.0100, L3100.5800 #### [facility] [address] [place], [address] Monocytes/100 WBC (Bld) 17.6 % High 0-10 [facility] Comment on above: Performed By: #### L 500.4050, L3100.5700, L400.2010, L3100.5500, L501.0900, L100.0100, L3100.5800 #### [facility] [address] [place], [address] Neutrophils/100 WBC (Bld) 55.1 % Normal 47-70 [facility] Comment on above: Performed By: #### L 500.4050, L3100.5700, L400.2010, L3100.5500, L501.0900, L100.0100, L3100.5800 #### [facility] [address] [place], [address] Nucleated RBC (Bld) [#/Vol] 0 10*3/uL Normal 0-5 [facility] Comment on above: Performed By: #### L 500.4050, L3100.5700, L400.2010, L3100.5500, L501.0900, L100.0100, L3100.5800 #### [facility] [address] [place], [address] Platelet mean volume (Bld) [Entitic vol] 11.2 fL Normal 6.2-12.0 [facility] Comment on above: Performed By: #### L 500.4050, L3100.5700, L400.2010, L3100.5500, L501.0900, L100.0100, L3100.5800 #### [facility] [address] [place], [address] Platelets (Bld) [#/Vol] 195 10*3/uL Normal 150-450 [facility] Comment on above: Performed By: #### L 500.4050, L3100.5700, L400.2011, L3100.5500, L501.0900, L100.0100, L3100.5800 #### [facility] [address] [place], [address] RBC (Bld) [#/Vol] 4.12 10*6/uL Low 4.2-5.4 [facility] Comment on above: Performed By: #### L 500.4050, L3100.5700, L400.2010, L3100.5500, L501.0900, L100.0100, L3100.5800 #### [facility] [address] [place], [address] RDW SD 46.4 fl High 35.1-43.9 [facility] Comment on above: Performed By: #### L 500.4050, L3100.5700, L400.2010, L3100.5500, L501.0900, L100.0100, L3100.5800 #### [facility] [address] [place], [address] WBC (Bld) [#/Vol] 2.7 10*3/uL Low 4.4-11.0 [facility] Comment on above: Performed By: #### L 500.4050, L3100.5700, L400.2010, L3100.5500, L501.0900, L100.0100, L3100.5800 #### [facility] [address] [place], [address] Comprehensive Metabolic Prof ilon 09-03-2023 Albumin [Mass/Vol] 3.7 g/dL Normal 3.2-5.0 [facility] Comment on above: Performed By: #### L 500.4050, L3100.5700, L400.2010, L3100.5500, L501.0900, L100.0100, L3100.5800 #### [facility] [address] [place], [address] Albumin/Globulin [Mass ratio] 1.1 {ratio} Normal 0.9-2.4 [facility] Comment on above: Performed By: #### L 500.4050, L3100.5700, L400.2010, L3100.5500, L501.0900, L100.0100, L3100.5800 #### [facility] [address] [place], [address] ALK P 72 U/L Normal 45-117 [facility] Comment on above: Performed By: #### L 500.4050, L3100.5700, L400.2010, L3100.5500, L501.0900, L100.0100, L3100.5800 #### [facility] [address] [place], [address] ALT [Catalytic activity/Vol] 27 U/L Normal 13-56 [facility] Comment on above: Performed By: #### L 500.4050, L3100.5700, L400.2010, L3100.5500, L501.0900, L100.0100, L3100.5800 #### [facility] [address] [place], [address] AST [Catalytic activity/Vol] 26 U/L Normal 15-37 [facility] Comment on above: Performed By: #### L 500.4050, L3100.5700, L400.2010, L3100.5500, L501.0900, L100.0100, L3100.5800 #### [facility] [address] [place], [address] Bilirubin [Mass/Vol] 0.40 mg/dL Normal 0.20-1.00 [facility] Comment on above: Result Comment: For patients on eltrombopag therapy, use of Dimension [place] TBIL is not recommended. Performed By: #### L 500.4050, L3100.5700, L400.2010, L3100.5500, L501.0900, L100.0100, L3100.5800 #### [facility] [address] [place], [address] BUN/CRE 20.9 RATIO High 10-20 [facility] Comment on above: Performed By: #### L 500.4050, L3100.5700, L400.2010, L3100.5500, L501.0900, L100.0100, L3100.5800 #### [facility] [address] [place], [address] CA,Total 9.1 mg/dL Normal 8.5-10.1 [facility] Comment on above: Performed By: #### L 500.4050, L3100.5700, L4.2010, L3100.5500, L501.0900, L100.0100, L3100.5800 #### [facility] [address] [place], [address] Chloride [Moles/Vol] 106 mmol/L Normal 98-107 [facility] Comment on above: Performed By: #### L 500.4050, L3100.5700, L400.2010, L3100.5500, L501.0900, L100.0100, L3100.5800 #### [facility] [address] [place], [address] CO2 [Moles/Vol] 28.0 mmol/L Normal 21.0-32.0 [facility] Comment on above: Performed By: #### L 500.4050, L3100.5700, L400.2010, L3100.5500, L501.0900, L100.0100, L3100.5800 #### [facility] [address] [place], [address] Creatinine [Mass/Vol] 0.62 mg/dL Normal 0.55-1.02 [facility] Comment on above: Result Comment: The validity of the calculated GFR GFRAA in patients over 70 years has not been determined. Clinical correlation is essential. Performed By: #### L 500.4050, L3100.5700, L400.2011, L3100.5500, L501.0900, L100.0100, L3100.5800 #### [facility] [address] [place], [address] EST GFR - AA 129 mL/min Normal >60 [facility] Comment on above: Result Comment: Afri can Russian GFR Calc Performed By: #### L 500.4050, L3100.5700, L400.2010, L3100.5500, L501.0900, L100.0100, L3100.5800 #### [facility] [address] [place], [place], [id number] (938) GAP 3 Low 5-15 [facility] Comment on above: Performed By: #### L 500.4050, L3100.5700, L400.2010, L3100.5500, L501.0900, L100.0100, L3100.5800 #### [facility] [address] [place], [address] GFR/1.73 sq M.predicted among non-blacks MDRD (S/P/Bld) [Vol rate/Area] 106 mL/min/{1.73_m2} Normal >60 [facility] Comment on above: Result Comment: Non- GFR Calc Performed By: #### L 500.4050, L3100.5700, L400.2010, L3100.5500, L501.0900, L100.0100, L3100.5800 #### [facility] [address] [place], [address] Globulin (S) [Mass/Vol] 3.4 g/dL Normal 2.2-4.2 [facility] Comment on above: Performed By: #### L 500.4050, L3100.5700, L400.2011, L3100.5500, L501.0900, L100.0100, L3100.5800 #### [facility] [address] [place], [address] Glucose [Mass/Vol] 83 mg/dL Normal 74-106 [facility] Comment on above: Performed By: #### L 500.4050, L3100.5700, L400.2010, L3100.5500, L501.0900, L100.0100, L3100.5800 #### [facility] [address] [place], [address] Potassium [Moles/Vol] 4.1 mmol/L Normal 3.5-5.1 [facility] Comment on above: Performed By: #### L 500.4050, L3100.5700, L400.2010, L3100.5500, L501.0900, L100.0100, L3100.5800 #### [facility] [address] [place], [address] Sodium [Moles/Vol] 137 mmol/L Normal 136-145 [facility] Comment on above: Performed By: #### L 500.4050, L3100.5700, L400.2010, L3100.5500, L501.0900, L100.0100, L3100.5800 #### [facility] [address] [place], [address] T PROT 7.1 g/dL Normal 6.4-8.2 [facility] Comment on above: Performed By: #### L 500.4050, L3100.5700, L400.2010, L3100.5500, L501.0900, L100.0100, L3100.5800 #### [facility] [address] [place], [address] Urea nitrogen [Mass/Vol] 13 mg/dL Normal 7-18 [facility] Comment on above: Performed By: #### L 500.4050, L3100.5700, L400.2011, L3100.5500, L501.0900, L100.0100, L3100.5800 #### [facility] [address] [place], [address] Protein+Creatinine Ratio,Uri neon 09-03-2023 PROT:CRE RATIO 152 mg/g CRE Normal 0-200 [facility] Comment on above: Performed By: #### L 500.4050, L3100.5700, L400.2010, L3100.5500, L501.0900, L100.0100, L3100.5800 #### [facility] [address] [place], [address] Protein (U) [Mass/Vol] 21.7 mg/dL High <11.9 [facility] Comment on above: Performed By: #### L 500.4050, L3100.5700, L400.2010, L3100.5500, L501.0900, L100.0100, L3100.5800 #### [facility] [address] [place], [address] UR CREAT 143.00 mg/dL Normal NO RANGE EST. [facility] Comment on above: Performed By: #### L 500.4050, L3100.5700, L400.2010, L3100.5500, L501.0900, L100.0100, L3100.5800 #### [facility] [address] [place], [address] Urinalysis, Routine (Dipstic k)on 09-03-2023 BILIRUBIN URINE Negative Normal Negative [facility] Comment on above: Order Comment: CLEAN CATCH Performed By: #### L 500.4050, L3100.5700, L400.2010, L3100.5500, L501.0900, L100.0100, L3100.5800 #### [facility] [address] [place], [address] Clarity (U) Clear Normal Clear [facility] Comment on above: Order Comment: CLEAN CATCH Performed By: #### L 500.4050, L3100.5700, L400.2011, L3100.5500, L501.0900, L100.0100, L3100.5800 #### [facility] [address] [place], [address] Color (U) Yellow Normal Yellow [facility] Comment on above: Order Comment: CLEAN CATCH Performed By: #### L 500.4050, L3100.5700, L400.2011, L3100.5500, L501.0900, L100.0100, L3100.5800 #### [facility] [address] [place], [address] GLUCOSE, UR Normal Normal Normal [facility] Comment on above: Order Comment: CLEAN CATCH Performed By: #### L 500.4050, L3100.5700, L400.2010, L3100.5500, L501.0900, L100.0100, L3100.5800 #### [facility] [address] [place], [address] KETONE UR Negative Normal Negative [facility] Comment on above: Order Comment: CLEAN CATCH Performed By: #### L 500.4050, L3100.5700, L400.2010, L3100.5500, L501.0900, L100.0100, L3100.5800 #### [facility] [address] [place], [address] LEUK ESTERASE Negative Normal Negative [facility] Comment on above: Order Comment: CLEAN CATCH Performed By: #### L 500.4050, L3100.5700, L400.2010, L3100.5500, L501.0900, L100.0100, L3100.5800 #### [facility] [address] [place], [address] Nitrite Ql (U) Negative Normal Negative [facility] Comment on above: Order Comment: CLEAN CATCH Performed By: #### L 500.4050, L3100.5700, L400.2011, L3100.5500, L501.0900, L100.0100, L3100.5800 #### [facility] [address] [place], [address] OCCULT BLOOD-UR Negative Normal Negative [facility] Comment on above: Order Comment: CLEAN CATCH Performed By: #### L 500.4050, L3100.5700, L400.2010, L3100.5500, L501.0900, L100.0100, L3100.5800 #### [facility] [address] [place], [address] pH UR 6.5 Normal 5.0 - 8.0 [facility] Comment on above: Order Comment: CLEAN CATCH Performed By: #### L 500.4050, L3100.5700, L400.2010, L3100.5500, L501.0900, L100.0100, L3100.5800 #### [facility] [address] [place], [address] PROT DIPSTX 15 mg/dl Abnormal Negative [facility] Comment on above: Order Comment: CLEAN CATCH Performed By: #### L 500.4050, L3100.5700, L400.2010, L3100.5500, L501.0900, L100.0100, L3100.5800 #### [facility] [address] [place], [address] SP.GR. DIPSTX 1.010 Normal 1.002-1.030 [facility] Comment on above: Order Comment: CLEAN CATCH Performed By: #### L 500.4050, L3100.5700, L400.2010, L3100.5500, L501.0900, L100.0100, L3100.5800 #### [facility] [address] [place], [address] UROBILI Normal Normal Normal [facility] Comment on above: Order Comment: CLEAN CATCH Performed By: #### L 500.4050, L3100.5700, L400.2011, L3100.5500, L501.0900, L100.0100, L3100.5800 #### [facility] [address] [place], [address] Basophil percentageOrdered B y: Ramon Dumont on 07-15-2023 Chloride [Moles/Vol] 104 mmol/L 98-107 [facility] Glucose [Mass/Vol] 81 mg/dL 74-106 [facility] Potassium [Moles/Vol] 4.6 mmol/L 3.5-5.1 [facility] Sodium [Moles/Vol] 137 mmol/L 136-145 [facility] - Chemistry and C hemistry - challengeOrdered By: Ramon Dumont on 07-15-2023 CO2 [Moles/Vol] 28.0 mmol/L 21.0-32.0 [facility] Urea nitrogen/Creatinine [Mass ratio] 20.5 mg/mg 10-20 [facility] No Panel InformationOrdered By: Ramon Dumont on 07-15-2023 Estimated GFR (MDRD) Amer 115 mL/min >60 [facility] Comment on above: GFR Calc Estimated GFR (MDRD) Non-Af Amer 95 mL/min >60 [facility] Comment on above: Non- GFR Calc Urine Microalbumin/Creatinine Ratio 8.5 mg/g CRE <30 [facility] Serum or plasma calcium evelyn urement (mass/volume)Ordered By: Ramon Dumont on 07-15-2023 Calcium [Mass/Vol] 9.2 mg/dL 8.5-10.1 [facility] Serum or plasma creatinine m easurement (mass/volume)Ordered By: Ramon Dumont on 07-15-2023 Creatinine [Mass/Vol] 0.68 mg/dL 0.55-1.02 [facility] Comment on above: The validity of the calculated GFR & GFRAA in patients over 70 years has not been determined. Clinical correlation is essential. Serum or plasma urea nitroge n measurement (mass/volume)Ordered By: Ramon Dumont on 07-15-2023 Urea nitrogen [Mass/Vol] 14 mg/dL 7-18 [facility] Thin prep Papanicolaou smear with manual screeningOrdered By: Ramon Dumont on 07-15-2023 Thin prep Papanicolaou smear with manual screening 5 5-15 [facility] Thin prep Papanicolaou smear with manual screening 10.3 mg/L NO RANGE EST. [facility] Urine creatinine measurement (mass/volume)Ordered By: Ramon Dumont on 07-15-2023 Creatinine (U) [Mass/Vol] 121.00 mg/dL NO RANGE EST. [facility] Absolute lymphocyte countOrd ered By: Milady Zambrano on 06-23-2023 Lymphocytes Auto (Unsp spec) [#/Vol] 0.57 10*3/uL 0.83-4.51 [facility] Automated lymphocyte count a s percentage of total leukocytesOrdered By: Milady Zambrano on 06-23-2023 Lymphocytes/100 WBC Auto (Unsp spec) 25.6 % 19-41 [facility] Basophil percentageOrdered B y: Milady Zambrano on 06-23-2023 Basophils/100 WBC (Bld) 0.9 % 0-1 [facility] Bilirubin [Mass/Vol] 0.40 mg/dL 0.20-1.00 [facility] Comment on above: For patients on eltr ombopag therapy, use of Dimension [place] TBIL is not recommended. Chloride [Moles/Vol] 106 mmol/L 98-107 [facility] Eosinophils/100 WBC (Bld) 3.6 % 0-5 [facility] Glucose [Mass/Vol] 82 mg/dL 74-106 [facility] Hemoglobin (Bld) [Mass/Vol] 12.9 g/dL 12.0-15.0 [facility] Monocytes/100 WBC (Bld) 15.7 % 0-10 [facility] Neutrophils (Bld) [#/Vol] 1.2 10*3/uL 2.0-7.7 [facility] Neutrophils/100 WBC (Bld) 53.8 % 47-70 [facility] Potassium [Moles/Vol] 4.1 mmol/L 3.5-5.1 [facility] Protein [Mass/Vol] 7.1 g/dL 6.4-8.2 [facility] Sodium [Moles/Vol] 137 mmol/L 136-145 [facility] WBC (Bld) [#/Vol] 2.2 10*3/uL 4.4-11.0 [facility] Bilirubin Test strip Ql (U)O rdered By: Milady Zambrano on 06-23-2023 Bilirubin Ql (U) Negative Negative [facility] Blood manual differential co mment interpretation (narrative result)Ordered By: Milady Zambrano on 06-23-2023 Manual differential comment Samir (Bld) [Interp] COMMENT [facility] Comment on above: LYMPHOPENIA NOTED Determination of erythrocyte mean corpuscular volume (MCV)Ordered By: Milady Zambrano on 06-23-2023 MCV (RBC) [Entitic vol] 98.1 fL 81-99 [facility] Erythrocyte distribution wid th ratioOrdered By: Milady Zambrano on 06-23-2023 Erythrocyte distribution width (RBC) [Ratio] 12.2 % 11.6-14.6 [facility] Erythrocyte distribution wid th standard deviationOrdered By: Milady Zambrano on 06-23-2023 Erythrocyte distribution width (RBC) [Entitic vol] 43.6 fL 35.1-43.9 [facility] Hematocrit Auto (Bld) [Volum e fraction]Ordered By: Milady Zambrano on 06-23-2023 Hematocrit (Bld) [Volume fraction] 40.5 % 37-47 [facility] Immature granulocytes/100 WB C Auto (Bld)Ordered By: Milady Zambrano on 06-23-2023 Immature granulocytes/100 WBC (Bld) 0.400 % 0.0-0.9 [facility] Comment on above: IG% - Immature Granu locytes (promyelocytes, myelocytes and metamyelocytes) > 1% indicates that a LEFT SHIFT is Present. Ketones Test strip Ql (U)Ord ered By: Milady Zambrano on 06-23-2023 Ketones Ql (U) Negative Negative [facility] - Chemistry and C hemistry - challengeOrdered By: Milady Zambrano on 06-23-2023 Albumin/Globulin [Mass ratio] 1.0 {ratio} 0.9-2.4 [facility] ALP [Catalytic activity/Vol] 73 U/L 45-117 [facility] ALT [Catalytic activity/Vol] 16 U/L 13-56 [facility] CO2 [Moles/Vol] 28.0 mmol/L 21.0-32.0 [facility] Globulin (S) [Mass/Vol] 3.6 g/dL 2.2-4.2 [facility] Urea nitrogen/Creatinine [Mass ratio] 20.3 mg/mg 10-20 [facility] - Hematology and Cell countsOrdered By: Milady Zambrano on 06-23-2023 MCH (RBC) [Entitic mass] 31.2 pg 27.0-32.0 [facility] MCHC (RBC) [Mass/Vol] 31.9 g/dL 32-36 [facility] Nucleated RBC/100 WBC (Bld) [Ratio] 0 % 0-5 [facility] Platelet mean volume (Bld) [Entitic vol] 11.1 fL 6.2-12.0 [facility] Platelets (Bld) [#/Vol] 193 10*3/uL 150-450 [facility] Nitrite Test strip Ql (U)Ord ered By: Milady Zambrano on 06-23-2023 Nitrite Ql (U) Negative Negative [facility] No Panel InformationOrdered By: Milady Zambrano on 06-23-2023 Complement C3 74 mg/dL 82-167 [facility] Comment on above: Performed at: [address] [id number] Director: Pacheco Gramajo PhD, Phone: [phone] Estimated GFR (MDRD) Amer 114 mL/min >60 [facility] Comment on above: GFR Calc Estimated GFR (MDRD) Non-Af Amer 94 mL/min >60 [facility] Comment on above: Non- GFR Calc Protein Test strip Ql (U)Ord ered By: Milady Zambrano on 06-23-2023 Protein Ql (U) Negative Negative [facility] RBC Auto (Bld) [#/Vol]Ordere d By: Milady Zambrano on 06-23-2023 RBC (Bld) [#/Vol] 4.13 10*6/uL 4.2-5.4 [facility] Review by pathologistOrdered By: Milady Zambrano on 06-23-2023 Pathologist review Samir (Unsp spec) [Interp] Reviewed [facility] Comment on above: Previous reported re sult: Melissa herman Edited by: ANDREA on 06/25/23:925Leukopenia and neutropenia.Clinical correlation necessary.Sj Geiger M.D. 06/25/23 AMENDED REPORT 06/25/23925 PATH REV previously reported as: Melissa herman Serum DNA double strand anti body assay (units/volume)Ordered By: Milady Zambrano on 06-23-2023 DNA double strand Ab Qn (S) 28 [IU]/mL 0-9 [facility] Comment on above: Negative <5 Equivoca l 5 - 9 Positive >9Performed at: [facility] [place] [id number] Director: Pacheco Gramajo PhD, Phone: [phone] Serum or plasma calcium evelyn urement (mass/volume)Ordered By: Milady Zambrano on 06-23-2023 Calcium [Mass/Vol] 9.2 mg/dL 8.5-10.1 [facility] Serum or plasma complement C 4 measurement (mass/volume)Ordered By: Milady Zambrano on 06-23-2023 Complement C4 [Mass/Vol] 11 mg/dL 12-38 [facility] Serum or plasma creatinine m easurement (mass/volume)Ordered By: Milady Zambrano on 06-23-2023 Creatinine [Mass/Vol] 0.69 mg/dL 0.55-1.02 [facility] Comment on above: The validity of the calculated GFR & GFRAA in patients over 70 years has not been determined. Clinical correlation is essential. Serum or plasma urea nitroge n measurement (mass/volume)Ordered By: Milady Zambrano on 06-23-2023 Urea nitrogen [Mass/Vol] 14 mg/dL 7-18 [facility] Thin prep Papanicolaou smear with manual screeningOrdered By: Milady Zambrano on 06-23-2023 Protein (U) [Mass/Vol] 11.2 mg/dL 0.0-11.8 [facility] Thin prep Papanicolaou smear with manual screening 3.5 g/dL 3.2-5.0 [facility] Thin prep Papanicolaou smear with manual screening 26 U/L 15-37 [facility] Thin prep Papanicolaou smear with manual screening 3 5-15 [facility] Urine blood detectionOrdered By: Milady Zambrano on 06-23-2023 RBC Ql (U) Negative Negative [facility] Urine clarityOrdered By: Jessi Zambrano on 06-23-2023 Clarity (U) Clear Clear [facility] Urine color determinationOrd ered By: Milady Zambrano on 06-23-2023 Color (U) Yellow Yellow [facility] Urine creatinine measurement (mass/volume)Ordered By: Milady Zambrano on 06-23-2023 Creatinine (U) [Mass/Vol] 43.50 mg/dL NO RANGE EST. [facility] Urine glucose detectionOrder ed By: Milady Zambrano on 06-23-2023 Glucose Ql (U) Normal mg/dl Normal [facility] Urine leukocyte esterase det ection by dipstickOrdered By: Milady Zambrano on 06-23-2023 Leukocyte esterase Test strip Ql (U) Negative Negative [facility] Urine pHOrdered By: Milady hammond on 06-23-2023 pH (U) 8.0 [pH] 5.0 - 8.0 [facility] Urine protein/creatinine mas s ratioOrdered By: Milady Zambrano on 06-23-2023 Protein/Creatinine (U) [Mass ratio] 257 mg/g CRE 0-200 [facility] Urine specific gravity measu rementOrdered By: Milady Zambrano on 06-23-2023 Specific gravity (U) [Rel density] 1.020 1.002-1.030 [facility] Urine urobilinogen measureme ntOrdered By: Milady Zambrano on 06-23-2023 Urobilinogen Ql (U) Normal mg/dl Normal [facility] Absolute lymphocyte countOrd ered By: Milady Zambrano on 04-22-2023 Lymphocytes Auto (Unsp spec) [#/Vol] 0.62 10*3/uL 0.83-4.51 [facility] Automated lymphocyte count a s percentage of total leukocytesOrdered By: Milady Zambrano on 04-22-2023 Lymphocytes/100 WBC Auto (Unsp spec) 25.7 % 19-41 [facility] Basophil percentageOrdered B y: Milady Zambrano on 04-22-2023 Basophils/100 WBC (Bld) 0.8 % 0-1 [facility] Bilirubin [Mass/Vol] 0.40 mg/dL 0.20-1.00 [facility] Comment on above: For patients on eltr ombopag therapy, use of Dimension [place] TBIL is not recommended. Chloride [Moles/Vol] 109 mmol/L 98-107 [facility] Eosinophils/100 WBC (Bld) 2.5 % 0-5 [facility] Glucose [Mass/Vol] 81 mg/dL 74-106 [facility] Hemoglobin (Bld) [Mass/Vol] 13.4 g/dL 12.0-15.0 [facility] Monocytes/100 WBC (Bld) 15.8 % 0-10 [facility] Neutrophils (Bld) [#/Vol] 1.3 10*3/uL 2.0-7.7 [facility] Neutrophils/100 WBC (Bld) 55.2 % 47-70 [facility] Potassium [Moles/Vol] 4.3 mmol/L 3.5-5.1 [facility] Protein [Mass/Vol] 7.3 g/dL 6.4-8.2 [facility] Sodium [Moles/Vol] 139 mmol/L 136-145 [facility] WBC (Bld) [#/Vol] 2.4 10*3/uL 4.4-11.0 [facility] Bilirubin Test strip Ql (U)O rdered By: Milady Zambrano on 04-22-2023 Bilirubin Ql (U) Negative Negative [facility] Complement C3 assayOrdered B y: Milady Zambrano on 04-22-2023 Complement C3 (Body fld) [Mass/Vol] 80 mg/dL 82-167 [facility] Comment on above: Performed at: [address] [id number] Director: Pacheco Gramajo PhD, Phone: [phone] Determination of erythrocyte mean corpuscular volume (MCV)Ordered By: Milady Zambrano on 04-22-2023 MCV (RBC) [Entitic vol] 99.8 fL 81-99 [facility] Erythrocyte distribution wid th ratioOrdered By: [facility] on 04-22-2023 Erythrocyte distribution width (RBC) [Ratio] 12.3 % 11.6-14.6 [facility] Erythrocyte distribution wid th standard deviationOrdered By: [facility] on 04-22-2023 Erythrocyte distribution width (RBC) [Entitic vol] 45.1 fL 35.1-43.9 [facility] Hematocrit Auto (Bld) [Volum e fraction]Ordered By: Miladyvannesa Zambrano on 04-22-2023 Hematocrit (Bld) [Volume fraction] 42.0 % 37-47 [facility] Immature granulocytes/100 WB C Auto (Bld)Ordered By: Miladyvannesa Zambrano on 04-22-2023 Immature granulocytes/100 WBC (Bld) 0.000 % 0.0-0.9 [facility] Comment on above: IG% - Immature Granu locytes (promyelocytes, myelocytes and metamyelocytes) > 1% indicates that a LEFT SHIFT is Present. Ketones Test strip Ql (U)Ord ered By: Milady Zambrano on 04-22-2023 Ketones Ql (U) Negative Negative [facility] Laboratory - Chemistry and C hemistry - challengeOrdered By: Milady Zambrano on 04-22-2023 Albumin/Globulin [Mass ratio] 1.1 {ratio} 0.9-2.4 [facility] ALP [Catalytic activity/Vol] 77 U/L 45-117 [facility] ALT [Catalytic activity/Vol] 20 U/L 13-56 [facility] CO2 [Moles/Vol] 26.0 mmol/L 21.0-32.0 [facility] Globulin (S) [Mass/Vol] 3.5 g/dL 2.2-4.2 [facility] Urea nitrogen/Creatinine [Mass ratio] 18.7 mg/mg 10-20 [facility] Laboratory - Hematology and Cell countsOrdered By: Milady Zambrano on 04-22-2023 MCH (RBC) [Entitic mass] 31.8 pg 27.0-32.0 [facility] MCHC (RBC) [Mass/Vol] 31.9 g/dL 32-36 [facility] Nucleated RBC/100 WBC (Bld) [Ratio] 0 % 0-5 [facility] Platelets (Bld) [#/Vol] 161 10*3/uL 150-450 [facility] Nitrite Test strip Ql (U)Ord ered By: Milady Zambrano on 04-22-2023 Nitrite Ql (U) Negative Negative [facility] No Panel InformationOrdered By: Milady Zambrano on 04-22-2023 Estimated GFR (MDRD) Amer 113 mL/min >60 [facility] Comment on above: GFR Calc Estimated GFR (MDRD) Non-Af Amer 93 mL/min >60 [facility] Comment on above: Non- GFR Calc Platelet mean volume Himanshu-Ec ker (Bld) [Entitic vol]Ordered By: Milady Zambrano on 04-22-2023 Platelet mean volume (Bld) [Entitic vol] 11.5 fL 6.2-12.0 [facility] Protein Test strip Ql (U)Ord ered By: Milady Zambrano on 04-22-2023 Protein Ql (U) Negative Negative [facility] RBC Auto (Bld) [#/Vol]Ordere d By: Milady Zambrano on 04-22-2023 RBC (Bld) [#/Vol] 4.21 10*6/uL 4.2-5.4 [facility] Serum DNA double strand anti body assay (units/volume)Ordered By: Milady Zambrano on 04-22-2023 DNA double strand Ab Qn (S) 35 [IU]/mL 0-9 [facility] Comment on above: Negative <5 Equivoca l 5 - 9 Positive >9Performed at: [facility], [place] [id number] Director: Pacheco Gramajo PhD, Phone: [phone] Serum or plasma calcium evelyn urement (mass/volume)Ordered By: Milady Zambrano on 04-22-2023 Calcium [Mass/Vol] 9.4 mg/dL 8.5-10.1 [facility] Serum or plasma complement C 4 measurement (mass/volume)Ordered By: Milady Zambrano on 04-22-2023 Complement C4 [Mass/Vol] 12 mg/dL 12-38 [facility] Serum or plasma creatinine m easurement (mass/volume)Ordered By: Milady Zambrano on 04-22-2023 Creatinine [Mass/Vol] 0.70 mg/dL 0.55-1.02 [facility] Comment on above: The validity of the calculated GFR & GFRAA in patients over 70 years has not been determined. Clinical correlation is essential. Serum or plasma urea nitroge n measurement (mass/volume)Ordered By: Milady Zambrano on 04-22-2023 Urea nitrogen [Mass/Vol] 13 mg/dL 7-18 [facility] Thin prep Papanicolaou smear with manual screeningOrdered By: Milady Zambrano on 04-22-2023 Protein (U) [Mass/Vol] 24.0 mg/dL 0.0-11.8 [facility] Thin prep Papanicolaou smear with manual screening 3.8 g/dL 3.2-5.0 [facility] Thin prep Papanicolaou smear with manual screening 26 U/L 15-37 [facility] Thin prep Papanicolaou smear with manual screening 4 5-15 [facility] Urine blood detectionOrdered By: Milady Zambrano on 04-22-2023 RBC Ql (U) Negative Negative [facility] Urine clarityOrdered By: Jessi Zambrano on 04-22-2023 Clarity (U) Clear Clear [facility] Urine color determinationOrd ered By: Milady Zambrano on 04-22-2023 Color (U) Yellow Yellow [facility] Urine creatinine measurement (mass/volume)Ordered By: Milady Zambrano on 04-22-2023 Creatinine (U) [Mass/Vol] 115.00 mg/dL NO RANGE EST. [facility] Urine glucose detectionOrder ed By: Milady Zambrano on 04-22-2023 Glucose Ql (U) Normal mg/dl Normal [facility] Urine leukocyte esterase det ection by dipstickOrdered By: Milady Zambrano on 04-22-2023 Leukocyte esterase Test strip Ql (U) Negative Negative [facility] Urine pHOrdered By: Milady hammond on 04-22-2023 pH (U) 7.0 [pH] 5.0 - 8.0 [facility] Urine protein/creatinine mas s ratioOrdered By: Milady Zambrano on 04-22-2023 Protein/Creatinine (U) [Mass ratio] 209 mg/g CRE 0-200 [facility] Urine specific gravity measu rementOrdered By: Milady Zambrano on 04-22-2023 Specific gravity (U) [Rel density] 1.010 1.002-1.030 [facility] Urine urobilinogen measureme ntOrdered By: Milady Zambrano on 04-22-2023 Urobilinogen Ql (U) Normal mg/dl Normal [facility] Absolute lymphocyte countOrd ered By: Milady Zambrano on 03-19-2023 Lymphocytes Auto (Unsp spec) [#/Vol] 0.58 10*3/uL 0.83-4.51 [facility] Basophil percentageOrdered B y: Milady Zambrano on 03-19-2023 Basophils/100 WBC (Bld) 1.0 % 0-1 [facility] Bilirubin [Mass/Vol] 0.40 mg/dL 0.20-1.00 [facility] Comment on above: For patients on eltr ombopag therapy, use of Dim[employer] [place] TBIL is not recommended. Chloride [Moles/Vol] 104 mmol/L 98-107 [facility] Eosinophils/100 WBC (Bld) 3.5 % 0-5 [facility] Glucose [Mass/Vol] 80 mg/dL 74-106 [facility] Neutrophils (Bld) [#/Vol] 0.9 10*3/uL 2.0-7.7 [facility] Neutrophils/100 WBC (Bld) 46.2 % 47-70 [facility] Potassium [Moles/Vol] 4.6 mmol/L 3.5-5.1 [facility] Protein [Mass/Vol] 7.0 g/dL 6.4-8.2 [facility] Sodium [Moles/Vol] 135 mmol/L 136-145 [facility] WBC (Bld) [#/Vol] 2.0 10*3/uL 4.4-11.0 [facility] Bilirubin Test strip Ql (U)O rdered By: Milady Zambrano on 03-19-2023 Bilirubin Ql (U) Negative Negative [facility] Blood erythrocytes count (nu mber/volume)Ordered By: Milady Zambrano on 03-19-2023 RBC (Bld) [#/Vol] 4.05 10*6/uL 4.2-5.4 [facility] Blood hemoglobin measurement (mass/volume)Ordered By: Milady Zambrano on 03-19-2023 Hemoglobin (Bld) [Mass/Vol] 12.8 g/dL 12.0-15.0 [facility] Blood lymphocytes/100 leukoc ytesOrdered By: Milady Zambrano on 03-19-2023 Lymphocytes/100 WBC (Bld) 28.9 % 19-41 [facility] Blood manual differential co mment interpretation (narrative result)Ordered By: Milady Zambrano on 03-19-2023 Manual differential comment Samir (Bld) [Interp] SCANNED [facility] Blood monocytes/100 leukocyt esOrdered By: Milady Zambrano on 03-19-2023 Monocytes/100 WBC (Bld) 19.9 % 0-10 [facility] Blood platelet mean volumeOr dered By: Milady Zambrano on 03-19-2023 Platelet mean volume (Bld) [Entitic vol] 11.1 fL 6.2-12.0 [facility] Determination of erythrocyte mean corpuscular volume (MCV)Ordered By: Milady Zambrano on 03-19-2023 MCV (RBC) [Entitic vol] 98.8 fL 81-99 [facility] Hematocrit Auto (Bld) [Volum e fraction]Ordered By: Milady Zambrano on 03-19-2023 Hematocrit (Bld) [Volume fraction] 40.0 % 37-47 [facility] Ketones Test strip Ql (U)Ord ered By: Milady Zambrano on 03-19-2023 Ketones Ql (U) Negative Negative [facility] Laboratory - Chemistry and C hemistry - challengeOrdered By: Milady Zambrano on 03-19-2023 ALP [Catalytic activity/Vol] 72 U/L 45-117 [facility] ALT [Catalytic activity/Vol] 23 U/L 13-56 [facility] CO2 [Moles/Vol] 28.0 mmol/L 21.0-32.0 [facility] Globulin (S) [Mass/Vol] 3.4 g/dL 2.2-4.2 [facility] Urea nitrogen/Creatinine [Mass ratio] 19.6 mg/mg 10-20 [facility] Laboratory - Hematology and Cell countsOrdered By: Milady Zambrano on 03-19-2023 Erythrocyte distribution width (RBC) [Entitic vol] 43.7 fL 35.1-43.9 [facility] Erythrocyte distribution width (RBC) [Ratio] 11.9 % 11.6-14.6 [facility] Immature granulocytes/100 WBC (Bld) 0.500 % 0.0-0.9 [facility] Comment on above: IG% - Immature Granu locytes (promyelocytes, myelocytes and metamyelocytes) > 1% indicates that a LEFT SHIFT is Present. MCH (RBC) [Entitic mass] 31.6 pg 27.0-32.0 [facility] Nucleated RBC/100 WBC (Bld) [Ratio] 0 % 0-5 [facility] MCHC Auto (RBC) [Mass/Vol]Or dered By: Milady Zambrano on 03-19-2023 MCHC (RBC) [Mass/Vol] 32.0 g/dL 32-36 [facility] Nitrite Test strip Ql (U)Ord ered By: Milady Zambrano on 03-19-2023 Nitrite Ql (U) Negative Negative [facility] No Panel InformationOrdered By: Milady Zambrano on 03-19-2023 Estimated GFR (MDRD) Amer 109 mL/min >60 [facility] Comment on above: GFR Calc Estimated GFR (MDRD) Non-Af Amer 90 mL/min >60 [facility] Comment on above: Non- GFR Calc Platelets bldOrdered By: Jessi Zambrano on 03-19-2023 Platelets (Bld) [#/Vol] 159 10*3/uL 150-450 [facility] Protein Test strip Ql (U)Ord ered By: Milady Zambrano on 03-19-2023 Protein Ql (U) 15 mg/dl Negative [facility] Review by pathologistOrdered By: Milady Zambrano on 03-19-2023 Pathologist review Samir (Unsp spec) [Interp] Reviewed [facility] Comment on above: Previous reported re sult: Melissa herman Edited by: RGOOD on 03/20/23:1321Leukopenia and neutropenia.Clinical correlation necessary.Sj Geiger M.D. 03/20/23 AMENDED REPORT 03/20/23 1321 PATH REV previously reported as: Melissa herman Serum DNA double strand anti body assay (units/volume)Ordered By: Milady Zambrano on 03-19-2023 DNA double strand Ab Qn (S) 30 [IU]/mL 0-9 [facility] Comment on above: Negative <5 Equivoca l 5 - 9 Positive >9Performed at: [facility] [id number] Director: Pacheco Gramajo PhD, Phone: [phone] Serum or plasma albumin evelyn urement (mass/volume)Ordered By: Milady Zambrano on 03-19-2023 Albumin [Mass/Vol] 3.6 g/dL 3.2-5.0 [facility] Serum or plasma albumin/glob ulin mass ratioOrdered By: Milady Zambrano on 03-19-2023 Albumin/Globulin [Mass ratio] 1.1 {ratio} 0.9-2.4 [facility] Serum or plasma calcium evelyn urement (mass/volume)Ordered By: Milady Zambrano on 03-19-2023 Calcium [Mass/Vol] 9.2 mg/dL 8.5-10.1 [facility] Serum or plasma complement C 3 measurement (mass/volume)Ordered By: Milady Zambrano on 03-19-2023 Complement C3 [Mass/Vol] 76 mg/dL 82-167 [facility] Comment on above: Performed at: - [address] [id number] Director: Pacheco Gramajo PhD, Phone: [phone] Serum or plasma complement C 4 measurement (mass/volume)Ordered By: Milady Zambrano on 03-19-2023 Complement C4 [Mass/Vol] 13 mg/dL 12-38 [facility] Serum or plasma creatinine m easurement (mass/volume)Ordered By: Milady Zambrano on 03-19-2023 Creatinine [Mass/Vol] 0.72 mg/dL 0.55-1.02 [facility] Comment on above: The validity of the calculated GFR & GFRAA in patients over 70 years has not been determined. Clinical correlation is essential. Serum or plasma urea nitroge n measurement (mass/volume)Ordered By: Milady Zambrano on 03-19-2023 Urea nitrogen [Mass/Vol] 14 mg/dL 7-18 [facility] Thin prep Papanicolaou smear with manual screeningOrdered By: Milady Zambrano on 03-19-2023 Thin prep Papanicolaou smear with manual screening 22 U/L 15-37 [facility] Thin prep Papanicolaou smear with manual screening 3 5-15 [facility] Urine blood detectionOrdered By: Milady Zambrano on 03-19-2023 RBC Ql (U) Negative Negative [facility] Urine clarityOrdered By: Jessi Zambrano on 03-19-2023 Clarity (U) Clear Clear [facility] Urine color determinationOrd ered By: Milady Zambrano on 03-19-2023 Color (U) Yellow Yellow [facility] Urine creatinine measurement (mass/volume)Ordered By: Milady Zambrano on 03-19-2023 Creatinine (U) [Mass/Vol] 126.00 mg/dL NO RANGE EST. [facility] Urine glucose detectionOrder ed By: Milady Zambrano on 03-19-2023 Glucose Ql (U) Normal mg/dl Normal [facility] Urine leukocyte esterase det ection by dipstickOrdered By: Milady Zambrano on 03-19-2023 Leukocyte esterase Test strip Ql (U) Negative Negative [facility] Urine pHOrdered By: Milady hammond on 03-19-2023 pH (U) 7.0 [pH] 5.0 - 8.0 [facility] Urine protein measurement (m ass/volume)Ordered By: Milady Zambrano on 03-19-2023 Protein (U) [Mass/Vol] 25.9 mg/dL 0.0-11.8 [facility] Urine protein/creatinine mas s ratioOrdered By: Milady Zambrano on 03-19-2023 Protein/Creatinine (U) [Mass ratio] 206 mg/g CRE 0-200 [facility] Urine specific gravity measu rementOrdered By: [facility] on 03-19-2023 Specific gravity (U) [Rel density] 1.010 1.002-1.030 [facility] Urobilinogen Auto test strip Ql (U)Ordered By: Milady Zambrano on 03-19-2023 Urobilinogen Ql (U) Normal mg/dl Normal [facility] Absolute lymphocyte countOrd ered By: Milady Zambrano on 12-31-2022 Lymphocytes Auto (Unsp spec) [#/Vol] 0.71 10*3/uL 0.83-4.51 [facility] Basophil percentageOrdered B y: Milady Zambrano on 12-31-2022 Basophils/100 WBC (Bld) 0.6 % 0-1 [facility] Bilirubin [Mass/Vol] 0.30 mg/dL 0.20-1.00 [facility] Comment on above: For patients on eltr ombopag therapy, use of Dimension [place] TBIL is not recommended. Chloride [Moles/Vol] 104 mmol/L 98-107 [facility] Eosinophils/100 WBC (Bld) 2.8 % 0-5 [facility] Glucose [Mass/Vol] 77 mg/dL 74-106 [facility] Neutrophils (Bld) [#/Vol] 1.9 10*3/uL 2.0-7.7 [facility] Neutrophils/100 WBC (Bld) 60.0 % 47-70 [facility] Potassium [Moles/Vol] 4.3 mmol/L 3.5-5.1 [facility] Protein [Mass/Vol] 7.3 g/dL 6.4-8.2 [facility] Sodium [Moles/Vol] 138 mmol/L 136-145 [facility] WBC (Bld) [#/Vol] 3.2 10*3/uL 4.4-11.0 [facility] Bilirubin Test strip Ql (U)O rdered By: Milady Zambrano on 12-31-2022 Bilirubin Ql (U) Negative Negative [facility] Blood erythrocytes count (nu mber/volume)Ordered By: Milady Zambrano on 12-31-2022 RBC (Bld) [#/Vol] 4.18 10*6/uL 4.2-5.4 [facility] Blood hemoglobin measurement (mass/volume)Ordered By: Milady Zambrano on 12-31-2022 Hemoglobin (Bld) [Mass/Vol] 13.3 g/dL 12.0-15.0 [facility] Blood lymphocytes/100 leukoc ytesOrdered By: Milady Zambrano on 12-31-2022 Lymphocytes/100 WBC (Bld) 22.2 % 19-41 [facility] [place] Blood monocytes/100 leukocyt esOrdered By: Milady Zambrano on 12-31-2022 Monocytes/100 WBC (Bld) 14.4 % 0-10 [facility] Blood platelet mean volumeOr dered By: Milady Zambrano on 12-31-2022 Platelet mean volume (Bld) [Entitic vol] 11.1 fL 6.2-12.0 [facility] [place] Determination of erythrocyte mean corpuscular volume (MCV)Ordered By: Milady Zambrano on 12-31-2022 MCV (RBC) [Entitic vol] 101.7 fL 81-99 [facility] Hematocrit Auto (Bld) [Volum e fraction]Ordered By: Milady Zambrano on 12-31-2022 Hematocrit (Bld) [Volume fraction] 42.5 % 37-47 [facility] [place] Ketones Test strip Ql (U)Ord ered By: Milady Zambrano on 12-31-2022 Ketones Ql (U) Negative Negative [facility] [place] Laboratory - Chemistry and C hemistry - challengeOrdered By: Milady Zambrano on 12-31-2022 ALP [Catalytic activity/Vol] 82 U/L 45-117 [facility] [place] ALT [Catalytic activity/Vol] 20 U/L 13-56 [facility] [place] CO2 [Moles/Vol] 30.0 mmol/L 21.0-32.0 [facility] [place] Globulin (S) [Mass/Vol] 3.7 g/dL 2.2-4.2 [facility] Urea nitrogen/Creatinine [Mass ratio] 19.9 mg/mg 10-20 [facility] [place] Laboratory - Hematology and Cell countsOrdered By: Milady Zambrano on 12-31-2022 Erythrocyte distribution width (RBC) [Entitic vol] 46.8 fL 35.1-43.9 [facility] [place] Erythrocyte distribution width (RBC) [Ratio] 12.6 % 11.6-14.6 [facility] [place] Immature granulocytes/100 WBC (Bld) 0.000 % 0.0-0.9 [facility] [place] Comment on above: IG% - Immature Granu locytes (promyelocytes, myelocytes and metamyelocytes) > 1% indicates that a LEFT SHIFT is Present. MCH (RBC) [Entitic mass] 31.8 pg 27.0-32.0 [facility] [place] Nucleated RBC/100 WBC (Bld) [Ratio] 0 % 0-5 [facility] [place] MCHC Auto (RBC) [Mass/Vol]Or dered By: Milady Zambrano on 12-31-2022 MCHC (RBC) [Mass/Vol] 31.3 g/dL 32-36 [facility] Nitrite Test strip Ql (U)Ord ered By: Milady Zambrano on 12-31-2022 Nitrite Ql (U) Negative Negative [facility] [place] No Panel InformationOrdered By: Milady Zambrano on 12-31-2022 Estimated GFR (MDRD) Amer 103 mL/min >60 [facility] [place] Comment on above: GFR Calc Estimated GFR (MDRD) Non-Af Amer 85 mL/min >60 [facility] [place] Comment on above: Non- GFR Calc Urine Microalbumin/Creatinine Ratio 13.6 mg/g CRE <30 [facility] [place] Platelets bldOrdered By: Jessi Zambrano on 12-31-2022 Platelets (Bld) [#/Vol] 204 10*3/uL 150-450 [facility] [place] Protein Test strip Ql (U)Ord ered By: Milady Zambrano on 12-31-2022 Protein Ql (U) 15 mg/dl Negative [facility] [place] Serum DNA double strand anti body assay (units/volume)Ordered By: Milady Zambrano on 12-31-2022 DNA double strand Ab Qn (S) 39 [IU]/mL 0-9 [facility] [place] Comment on above: Negative <5 Equivoca l 5 - 9 Positive >9Performed at: [facility] [address] [id number] Director: Pacheco Gramajo PhD, Phone: [phone] Serum or plasma albumin evelyn urement (mass/volume)Ordered By: Milady Zambrano on 12-31-2022 Albumin [Mass/Vol] 3.6 g/dL 3.2-5.0 [facility] Serum or plasma albumin/glob ulin mass ratioOrdered By: Milady Zambrano on 12-31-2022 Albumin/Globulin [Mass ratio] 1.0 {ratio} 0.9-2.4 [facility] [place] Serum or plasma calcium evelyn urement (mass/volume)Ordered By: Milady Zambrano on 12-31-2022 Calcium [Mass/Vol] 9.3 mg/dL 8.5-10.1 [facility] Serum or plasma complement C 3 measurement (mass/volume)Ordered By: Milady Zambrano on 12-31-2022 Complement C3 [Mass/Vol] 81 mg/dL 82-167 [facility] [place] Comment on above: Performed at: [facility] [address] [id number] Director: Pacheco Gramajo PhD, Phone: [phone] Serum or plasma complement C 4 measurement (mass/volume)Ordered By: Milady Zambrano on 12-31-2022 Complement C4 [Mass/Vol] 11 mg/dL 12-38 [facility] [place] Serum or plasma creatinine m easurement (mass/volume)Ordered By: Milady Zambrano on 12-31-2022 Creatinine [Mass/Vol] 0.75 mg/dL 0.55-1.02 [facility] Comment on above: The validity of the calculated GFR & GFRAA in patients over 70 years has not been determined. Clinical correlation is essential. Serum or plasma urea nitroge n measurement (mass/volume)Ordered By: Milady Zambrano on 12-31-2022 Urea nitrogen [Mass/Vol] 15 mg/dL 7-18 [facility] [place] Thin prep Papanicolaou smear with manual screeningOrdered By: Milady Zambrano on 12-31-2022 Thin prep Papanicolaou smear with manual screening 16 U/L 15-37 [facility] [place] Thin prep Papanicolaou smear with manual screening 4 5-15 [facility] [place] Thin prep Papanicolaou smear with manual screening 15.9 mg/L NO RANGE EST. [facility] [place] Urine blood detectionOrdered By: Milady Zambrano on 12-31-2022 RBC Ql (U) Negative Negative [facility] [place] Urine clarityOrdered By: Jessi Zambrano on 12-31-2022 Clarity (U) Clear Clear [facility] [place] Urine color determinationOrd ered By: Milady Zambrano on 12-31-2022 Color (U) Yellow Yellow [facility] [place] Urine creatinine measurement (mass/volume)Ordered By: Milady Zambrano on 12-31-2022 Creatinine (U) [Mass/Vol] 117.00 mg/dL NO RANGE EST. [facility] [place] Urine glucose detectionOrder ed By: Milady Zambrano on 12-31-2022 Glucose Ql (U) Normal mg/dl Normal [facility] [place] Urine leukocyte esterase det ection by dipstickOrdered By: Milady Zambrano on 12-31-2022 Leukocyte esterase Test strip Ql (U) Negative Negative [facility] [place] Urine pHOrdered By: Milady hammond on 12-31-2022 pH (U) 7.0 [pH] 5.0 - 8.0 [facility] [place] Urine protein measurement (m ass/volume)Ordered By: Milady Zambrano on 12-31-2022 Protein (U) [Mass/Vol] 21.6 mg/dL 0.0-11.8 [facility] Urine protein/creatinine mas s ratioOrdered By: Milady Zambrano on 12-31-2022 Protein/Creatinine (U) [Mass ratio] 185 mg/g CRE 0-200 [facility] [place] Urine specific gravity measu rementOrdered By: Milady Zambrano on 12-31-2022 Specific gravity (U) [Rel density] 1.010 1.002-1.030 [facility] [place] Urobilinogen Auto test strip Ql (U)Ordered By: Milady Zambrano on 12-31-2022 Urobilinogen Ql (U) Normal mg/dl Normal [facility] Absolute lymphocyte countOrd ered By: Milady Zambrano on 09-30-2022 Lymphocytes Auto (Unsp spec) [#/Vol] 0.62 10*3/uL 0.83-4.51 [facility] [place] Basophil percentageOrdered B y: Milady Zambrano on 09-30-2022 Basophils/100 WBC (Bld) 0.3 % 0-1 [facility] Bilirubin [Mass/Vol] 0.40 mg/dL 0.20-1.00 [facility] Comment on above: For patients on eltr ombopag therapy, use of Dimension [place] TBIL is not recommended. Chloride [Moles/Vol] 103 mmol/L 98-107 [facility] Eosinophils/100 WBC (Bld) 1.2 % 0-5 [facility] [place] Glucose [Mass/Vol] 82 mg/dL 74-106 [facility] Neutrophils (Bld) [#/Vol] 2.2 10*3/uL 2.0-7.7 [facility] [place] Neutrophils/100 WBC (Bld) 66.8 % 47-70 [facility] [place] Potassium [Moles/Vol] 4.6 mmol/L 3.5-5.1 [facility] Protein [Mass/Vol] 7.6 g/dL 6.4-8.2 [facility] Sodium [Moles/Vol] 136 mmol/L 136-145 [facility] WBC (Bld) [#/Vol] 3.2 10*3/uL 4.4-11.0 [facility] Bilirubin Test strip Ql (U)O rdered By: Milady Zambrano on 09-30-2022 Bilirubin Ql (U) Negative Negative [facility] [place] Blood erythrocytes count (nu mber/volume)Ordered By: Milady Zambrano on 09-30-2022 RBC (Bld) [#/Vol] 4.18 10*6/uL 4.2-5.4 [facility] Blood hemoglobin measurement (mass/volume)Ordered By: Milady Zambrano on 09-30-2022 Hemoglobin (Bld) [Mass/Vol] 13.6 g/dL 12.0-15.0 [facility] [place] Blood lymphocytes/100 leukoc ytesOrdered By: Milady Zambrano on 09-30-2022 Lymphocytes/100 WBC (Bld) 19.3 % 19-41 [facility] [place] Blood monocytes/100 leukocyt esOrdered By: Milady Zambrano on 09-30-2022 Monocytes/100 WBC (Bld) 12.4 % 0-10 [facility] Blood platelet mean volumeOr dered By: Milady Zambrano on 09-30-2022 Platelet mean volume (Bld) [Entitic vol] 10.5 fL 6.2-12.0 [facility] [place] Determination of erythrocyte mean corpuscular volume (MCV)Ordered By: Milady Zambrano on 09-30-2022 MCV (RBC) [Entitic vol] 100.7 fL 81-99 [facility] Hematocrit Auto (Bld) [Volum e fraction]Ordered By: Milady Zambrano on 09-30-2022 Hematocrit (Bld) [Volume fraction] 42.1 % 37-47 [facility] [place] Ketones Test strip Ql (U)Ord ered By: Milady Zambrano on 09-30-2022 Ketones Ql (U) Negative Negative [facility] [place] Laboratory - Chemistry and C hemistry - challengeOrdered By: Milady Zambrano on 09-30-2022 ALP [Catalytic activity/Vol] 82 U/L 45-117 [facility] [place] ALT [Catalytic activity/Vol] 17 U/L 13-56 [facility] [place] CO2 [Moles/Vol] 27.0 mmol/L 21.0-32.0 [facility] [place] Globulin (S) [Mass/Vol] 3.8 g/dL 2.2-4.2 [facility] Urea nitrogen/Creatinine [Mass ratio] 15.7 mg/mg 10-20 [facility] [place] Laboratory - Hematology and Cell countsOrdered By: Milady Zambrano on 09-30-2022 Erythrocyte distribution width (RBC) [Entitic vol] 44.2 fL 35.1-43.9 [facility] [place] Erythrocyte distribution width (RBC) [Ratio] 11.9 % 11.6-14.6 [facility] [place] Immature granulocytes/100 WBC (Bld) 0.000 % 0.0-0.9 [facility] [place] Comment on above: IG% - Immature Granu locytes (promyelocytes, myelocytes and metamyelocytes) > 1% indicates that a LEFT SHIFT is Present. MCH (RBC) [Entitic mass] 32.5 pg 27.0-32.0 [facility] [place] Nucleated RBC/100 WBC (Bld) [Ratio] 0 % 0-5 [facility] [place] MCHC Auto (RBC) [Mass/Vol]Or dered By: Milady Zambrano on 09-30-2022 MCHC (RBC) [Mass/Vol] 32.3 g/dL 32-36 [facility] Nitrite Test strip Ql (U)Ord ered By: Milady Zambrano on 09-30-2022 Nitrite Ql (U) Negative Negative [facility] [place] No Panel InformationOrdered By: Milady Zambrano on 09-30-2022 Estimated GFR (MDRD) Amer 93 mL/min >60 [facility] [place] Comment on above: GFR Calc Estimated GFR (MDRD) Non-Af Amer 77 mL/min >60 [facility] [place] Comment on above: Non- GFR Calc Urine Microalbumin/Creatinine Ratio 27.2 mg/g CRE <30 [facility] [place] Platelets bldOrdered By: Jessi Zambrano on 09-30-2022 Platelets (Bld) [#/Vol] 180 10*3/uL 150-450 [facility] [place] Protein Test strip Ql (U)Ord ered By: Milady Zambrano on 09-30-2022 Protein Ql (U) 15 mg/dl Negative [facility] [place] Serum DNA double strand anti body assay (units/volume)Ordered By: Milady Zambrano on 09-30-2022 DNA double strand Ab Qn (S) 54 [IU]/mL 0-9 [facility] [place] Comment on above: Negative <5 Equivoca l 5 - 9 Positive >9Performed at: [facility] [id number] Director: Pacheco Gramajo PhD, Phone: [phone] Serum or plasma albumin evelyn urement (mass/volume)Ordered By: Milady Zambrano on 09-30-2022 Albumin [Mass/Vol] 3.8 g/dL 3.2-5.0 [facility] Serum or plasma albumin/glob ulin mass ratioOrdered By: Milady Zambrano on 09-30-2022 Albumin/Globulin [Mass ratio] 1.0 {ratio} 0.9-2.4 [facility] [place] Serum or plasma calcium evelyn urement (mass/volume)Ordered By: Milady Zambrano on 09-30-2022 Calcium [Mass/Vol] 9.7 mg/dL 8.5-10.1 [facility] Serum or plasma complement C 3 measurement (mass/volume)Ordered By: Milady Zambrano on 09-30-2022 Complement C3 [Mass/Vol] 88 mg/dL 82-167 [facility] [place] Comment on above: Performed at: [address] Director: Pacheco Gramajo PhD, Phone: [phone] Serum or plasma complement C 4 measurement (mass/volume)Ordered By: Milady Zambrano on 09-30-2022 Complement C4 [Mass/Vol] 12 mg/dL 12-38 [facility] [place] Serum or plasma creatinine m easurement (mass/volume)Ordered By: Milady Zambrano on 09-30-2022 Creatinine [Mass/Vol] 0.83 mg/dL 0.55-1.02 [facility] Comment on above: The validity of the calculated GFR & GFRAA in patients over 70 years has not been determined. Clinical correlation is essential. Serum or plasma urea nitroge n measurement (mass/volume)Ordered By: Milady Zambrano on 09-30-2022 Urea nitrogen [Mass/Vol] 13 mg/dL 7-18 [facility] [place] Thin prep Papanicolaou smear with manual screeningOrdered By: Milady Zambrano on 09-30-2022 Thin prep Papanicolaou smear with manual screening 22 U/L 15-37 [facility] [place] Thin prep Papanicolaou smear with manual screening 6 5-15 [facility] [place] Thin prep Papanicolaou smear with manual screening 32.7 mg/L NO RANGE EST. [facility] [place] Urine blood detectionOrdered By: Milady Zambrano on 09-30-2022 RBC Ql (U) Negative Negative [facility] [place] Urine clarityOrdered By: Jessi Zambrano on 09-30-2022 Clarity (U) Clear Clear [facility] [place] Urine color determinationOrd ered By: Milady Zambrano on 09-30-2022 Color (U) Yellow Yellow [facility] [place] Urine creatinine measurement (mass/volume)Ordered By: Milady Zambrano on 09-30-2022 Creatinine (U) [Mass/Vol] 120.00 mg/dL NO RANGE EST. [facility] [place] Urine glucose detectionOrder ed By: Milady Zambrano on 09-30-2022 Glucose Ql (U) Normal mg/dl Normal [facility] [place] Urine leukocyte esterase det ection by dipstickOrdered By: Milady Zambrano on 09-30-2022 Leukocyte esterase Test strip Ql (U) Negative Negative [facility] [place] Urine pHOrdered By: Milady hammond on 09-30-2022 pH (U) 7.0 [pH] 5.0 - 8.0 [facility] [place] Urine protein measurement (m ass/volume)Ordered By: Milady Zambrano on 09-30-2022 Protein (U) [Mass/Vol] 27.5 mg/dL 0.0-11.8 [facility] Urine protein/creatinine mas s ratioOrdered By: Milady Zambrano on 09-30-2022 Protein/Creatinine (U) [Mass ratio] 229 mg/g CRE 0-200 [facility] [place] Urine specific gravity measu rementOrdered By: Milady Zambrano on 09-30-2022 Specific gravity (U) [Rel density] 1.010 1.002-1.030 [facility] [place] Urobilinogen Auto test strip Ql (U)Ordered By: Milady Zambrano on 09-30-2022 Urobilinogen Ql (U) Normal mg/dl Normal [facility] Absolute lymphocyte countOrd ered By: Dr. Zambrano on 08-05-2022 Lymphocytes Auto (Unsp spec) [#/Vol] 0.61 10*3/uL 0.83-4.51 [facility] [place] Basophil percentageOrdered B y: Dr. Zambrano on 08-05-2022 Basophils/100 WBC (Bld) 0.6 % 0-1 [facility] Bilirubin [Mass/Vol] 0.30 mg/dL 0.20-1.00 [facility] Comment on above: For patients on eltr ombopag therapy, use of Dimension [place] TBIL is not recommended. Chloride [Moles/Vol] 106 mmol/L 98-107 [facility] Eosinophils/100 WBC (Bld) 2.1 % 0-5 [facility] [place] Glucose [Mass/Vol] 81 mg/dL 74-106 [facility] Neutrophils (Bld) [#/Vol] 2.2 10*3/uL 2.0-7.7 [facility] [place] Neutrophils/100 WBC (Bld) 65.3 % 47-70 [facility] [place] Potassium [Moles/Vol] 4.3 mmol/L 3.5-5.1 [facility] Protein [Mass/Vol] 7.2 g/dL 6.4-8.2 [facility] Sodium [Moles/Vol] 139 mmol/L 136-145 [facility] WBC (Bld) [#/Vol] 3.4 10*3/uL 4.4-11.0 [facility] Bilirubin Test strip Ql (U)O rdered By: Dr. Zambrano on 08-05-2022 Bilirubin Ql (U) Negative Negative [facility] [place] Blood erythrocytes count (nu mber/volume)Ordered By: Dr. Zambrano on 08-05-2022 RBC (Bld) [#/Vol] 4.01 10*6/uL 4.2-5.4 [facility] Blood hemoglobin measurement (mass/volume)Ordered By: Dr. Zambrano on 08-05-2022 Hemoglobin (Bld) [Mass/Vol] 13.2 g/dL 12.0-15.0 [facility] [place] Blood lymphocytes/100 leukoc ytesOrdered By: Dr. Zambrano on 08-05-2022 Lymphocytes/100 WBC (Bld) 18.1 % 19-41 [facility] [place] Blood monocytes/100 leukocyt esOrdered By: Dr. Zambrano on 08-05-2022 Monocytes/100 WBC (Bld) 13.6 % 0-10 [facility] Blood platelet mean volumeOr dered By: Dr. Zambrano on 08-05-2022 Platelet mean volume (Bld) [Entitic vol] 11.0 fL 6.2-12.0 [facility] [place] Determination of erythrocyte mean corpuscular volume (MCV)Ordered By: Dr. Zambrano on 08-05-2022 MCV (RBC) [Entitic vol] 103.0 fL 81-99 [facility] Hematocrit Auto (Bld) [Volum e fraction]Ordered By: Dr. Zambrano on 08-05-2022 Hematocrit (Bld) [Volume fraction] 41.3 % 37-47 [facility] [place] Ketones Test strip Ql (U)Ord ered By: Dr. Zambrano on 08-05-2022 Ketones Ql (U) Negative Negative [facility] [place] Laboratory - Chemistry and C hemistry - challengeOrdered By: Dr. Zambrano on 08-05-2022 ALP [Catalytic activity/Vol] 79 U/L 45-117 [facility] [place] ALT [Catalytic activity/Vol] 21 U/L 13-56 [facility] [place] CO2 [Moles/Vol] 29.0 mmol/L 21.0-32.0 [facility] [place] Globulin (S) [Mass/Vol] 3.5 g/dL 2.2-4.2 [facility] Urea nitrogen/Creatinine [Mass ratio] 22.6 mg/mg 10-20 [facility] [place] Laboratory - Hematology and Cell countsOrdered By: Dr. Zambrano on 08-05-2022 Erythrocyte distribution width (RBC) [Entitic vol] 46.0 fL 35.1-43.9 [facility] [place] Erythrocyte distribution width (RBC) [Ratio] 12.2 % 11.6-14.6 [facility] [place] Immature granulocytes/100 WBC (Bld) 0.300 % 0.0-0.9 [facility] [place] Comment on above: IG% - Immature Granu locytes (promyelocytes, myelocytes and metamyelocytes) > 1% indicates that a LEFT SHIFT is Present. MCH (RBC) [Entitic mass] 32.9 pg 27.0-32.0 [facility] [place] Nucleated RBC/100 [facility] [[facility]/Vol]Or dered By: Dr. Zambrano on 08-05-2022 MCHC (RBC) [Mass/Vol] 32.0 g/dL 32-36 [facility] Nitrite Test strip Ql (U)Ord ered By: Dr. Zambrano on 08-05-2022 Nitrite Ql (U) Negative Negative [facility] [place] No Panel InformationOrdered By: Dr. Zambrano on 08-05-2022 Estimated GFR (MDRD) Amer 104 mL/min >60 [facility] [place] Comment on above: GFR Calc Estimated GFR (MDRD) Non-Af Amer 86 mL/min >60 [facility] [place] Comment on above: Non- GFR Calc Platelets bldOrdered By: Dr. Zambrano on 08-05-2022 Platelets (Bld) [#/Vol] 207 10*3/uL 150-450 [facility] [place] Protein Test strip Ql (U)Ord ered By: Dr. Zambrano on 08-05-2022 Protein Ql (U) 15 mg/dl Negative [facility] [place] Serum DNA double strand anti body assay (units/volume)Ordered By: Dr. Zambrano on 08-05-2022 DNA double strand Ab Qn (S) 59 [IU]/mL 0-9 [facility] [place] Comment on above: Negative <5 Equivoca l 5 - 9 Positive >9Performed at: - [facility] [id number] Director: Pacheco Gramajo PhD, Phone: [phone] Serum or plasma albumin evelyn urement (mass/volume)Ordered By: Dr. Zambrano on 08-05-2022 Albumin [Mass/Vol] 3.7 g/dL 3.2-5.0 [facility] Serum or plasma albumin/glob ulin mass ratioOrdered By: Dr. Zambrano on 08-05-2022 Albumin/Globulin [Mass ratio] 1.1 {ratio} 0.9-2.4 [facility] [place] Serum or plasma calcium evelyn urement (mass/volume)Ordered By: Dr. Zambrano on 08-05-2022 Calcium [Mass/Vol] 9.4 mg/dL 8.5-10.1 [facility] Serum or plasma complement C 3 measurement (mass/volume)Ordered By: Dr. Zambrano on 08-05-2022 Complement C3 [Mass/Vol] 80 mg/dL 82-167 [facility] [place] Comment on above: Performed at: [address] [id number] Director: Pacheco Gramajo PhD, Phone: [phone] Serum or plasma complement C 4 measurement (mass/volume)Ordered By: Dr. Zambrano on 08-05-2022 Complement C4 [Mass/Vol] 11 mg/dL 12-38 [facility] [place] Serum or plasma creatinine m easurement (mass/volume)Ordered By: Dr. Zambrano on 08-05-2022 Creatinine [Mass/Vol] 0.75 mg/dL 0.55-1.02 [facility] Comment on above: The validity of the calculated GFR & GFRAA in patients over 70 years has not been determined. Clinical correlation is essential. Serum or plasma urea nitroge n measurement (mass/volume)Ordered By: Dr. Zambrano on 08-05-2022 Urea nitrogen [Mass/Vol] 17 mg/dL 7-18 [facility] [place] Thin prep Papanicolaou smear with manual screeningOrdered By: Dr. Zambrano on 08-05-2022 Thin prep Papanicolaou smear with manual screening 19 U/L 15-37 [facility] [place] Thin prep Papanicolaou smear with manual screening 4 5-15 [facility] [place] Urine blood detectionOrdered By: Dr. Zambrano on 08-05-2022 RBC Ql (U) Negative Negative [facility] [place] Urine clarityOrdered By: Dr. Zambrano on 08-05-2022 Clarity (U) Sl. Cloudy Clear [facility] [place] Urine color determinationOrd ered By: Dr. Zambrano on 08-05-2022 Color (U) Yellow Yellow [facility] [place] Urine creatinine measurement (mass/volume)Ordered By: Dr. Zambrano on 08-05-2022 Creatinine (U) [Mass/Vol] 131.00 mg/dL NO RANGE EST. [facility] [place] Urine glucose detectionOrder ed By: Dr. Zambrano on 08-05-2022 Glucose Ql (U) Normal mg/dl Normal [facility] [place] Urine leukocyte esterase det ection by dipstickOrdered By: Dr. Zambrano on 08-05-2022 Leukocyte esterase Test strip Ql (U) Negative Negative [facility] Urine pHOrdered By: Dr. Seven oliver on 08-05-2022 pH (U) 7.0 [pH] 5.0 - 8.0 [facility] Urine protein measurement (m ass/volume)Ordered By: Dr. Zambrano on 08-05-2022 Protein (U) [Mass/Vol] 32.5 mg/dL 0.0-11.8 [facility] Urine protein/creatinine mas s ratioOrdered By: Dr. Zambrano on 08-05-2022 Protein/Creatinine (U) [Mass ratio] 248 mg/g CRE 0-200 [facility] Urine specific gravity measu rementOrdered By: Dr. Zambrano on 08-05-2022 Specific gravity (U) [Rel density] 1.010 1.002-1.030 [facility] Urobilinogen Auto test strip Ql (U)Ordered By: Dr. Zambrano on 08-05-2022 Urobilinogen Ql (U) Normal mg/dl Normal [facility] Absolute lymphocyte countOrd ered By: Dr. Zambrano on 06-03-2022 Lymphocytes Auto (Unsp spec) [#/Vol] 0.71 10*3/uL 0.83-4.51 [facility] Basophil percentageOrdered B y: Dr. Zambrano on 06-03-2022 Basophils/100 WBC (Bld) 0.3 % 0-1 [facility] Bilirubin [Mass/Vol] 0.50 mg/dL 0.20-1.00 [facility] Comment on above: For patients on eltr ombopag therapy, use of Dimension [place] TBIL is not recommended. Chloride [Moles/Vol] 102 mmol/L 98-107 [facility] Eosinophils/100 WBC (Bld) 0.3 % 0-5 [facility] Glucose [Mass/Vol] 97 mg/dL 74-106 [facility] Neutrophils (Bld) [#/Vol] 1.9 10*3/uL 2.0-7.7 [facility] Neutrophils/100 WBC (Bld) 62.3 % 47-70 [facility] Potassium [Moles/Vol] 4.1 mmol/L 3.5-5.1 [facility] Protein [Mass/Vol] 7.4 g/dL 6.4-8.2 [facility] Sodium [Moles/Vol] 137 mmol/L 136-145 [facility] WBC (Bld) [#/Vol] 3.0 10*3/uL 4.4-11.0 [facility] Bilirubin Test strip Ql (U)O rdered By: Dr. Zambrano on 06-03-2022 Bilirubin Ql (U) Negative Negative [facility] Blood erythrocytes count (nu mber/volume)Ordered By: Dr. Zambrano on 06-03-2022 RBC (Bld) [#/Vol] 3.86 10*6/uL 4.2-5.4 [facility] Blood hemoglobin measurement (mass/volume)Ordered By: Dr. Zambrano on 06-03-2022 Hemoglobin (Bld) [Mass/Vol] 12.4 g/dL 12.0-15.0 [facility] Blood lymphocytes/100 leukoc ytesOrdered By: Dr. Zambrano on 06-03-2022 Lymphocytes/100 WBC (Bld) 23.7 % 19-41 [facility] Blood monocytes/100 leukocyt esOrdered By: Dr. Zambrano on 06-03-2022 Monocytes/100 WBC (Bld) 13.4 % 0-10 [facility] Blood platelet mean volumeOr dered By: Dr. Zambrano on 06-03-2022 Platelet mean volume (Bld) [Entitic vol] 10.8 fL 6.2-12.0 [facility] Determination of erythrocyte mean corpuscular volume (MCV)Ordered By: Dr. Zambrano on 06-03-2022 MCV (RBC) [Entitic vol] 101.3 fL 81-99 [facility] Hematocrit Auto (Bld) [Volum e fraction]Ordered By: Dr. Zambrano on 06-03-2022 Hematocrit (Bld) [Volume fraction] 39.1 % 37-47 [facility] Ketones Test strip Ql (U)Ord ered By: Dr. Zambrano on 06-03-2022 Ketones Ql (U) Negative Negative [facility] Laboratory - Chemistry and C hemistry - challengeOrdered By: Dr. Zambrano on 06-03-2022 ALP [Catalytic activity/Vol] 79 U/L 45-117 [facility] ALT [Catalytic activity/Vol] 23 U/L 13-56 [facility] CO2 [Moles/Vol] 30.0 mmol/L 21.0-32.0 [facility] Globulin (S) [Mass/Vol] 3.5 g/dL 2.2-4.2 [facility] Urea nitrogen/Creatinine [Mass ratio] 20.9 mg/mg 10-20 [facility] Laboratory - Hematology and Cell countsOrdered By: Dr. Zambrano on 06-03-2022 Erythrocyte distribution width (RBC) [Entitic vol] 45.2 fL 35.1-43.9 [facility] Erythrocyte distribution width (RBC) [Ratio] 12.2 % 11.6-14.6 [facility] Immature granulocytes/100 WBC (Bld) 0.000 % 0.0-0.9 [facility] Comment on above: IG% - Immature Granu locytes (promyelocytes, myelocytes and metamyelocytes) > 1% indicates that a LEFT SHIFT is Present. MCH (RBC) [Entitic mass] 32.1 pg 27.0-32.0 [facility] Nucleated RBC/100 WBC (Bld) [Ratio] 0 % 0-5 [facility] MCHC Auto (RBC) [Mass/Vol]Or dered By: Dr. Zambrano on 06-03-2022 MCHC (RBC) [Mass/Vol] 31.7 g/dL 32-36 [facility] Nitrite Test strip Ql (U)Ord ered By: Dr. Zambrano on 06-03-2022 Nitrite Ql (U) Negative Negative [facility] No Panel InformationOrdered By: Dr. Zambrano on 06-03-2022 Estimated GFR (MDRD) Amer 109 mL/min >60 [facility] Comment on above: GFR Calc Estimated GFR (MDRD) Non-Af Amer 90 mL/min >60 [facility] Comment on above: Non- GFR Calc Platelets bldOrdered By: Dr. Zambrano on 06-03-2022 Platelets (Bld) [#/Vol] 186 10*3/uL 150-450 [facility] Protein Test strip Ql (U)Ord ered By: Dr. Zambrano on 06-03-2022 Protein Ql (U) Negative Negative [facility] Serum DNA double strand anti body assay (units/volume)Ordered By: Dr. Zambrano on 06-03-2022 DNA double strand Ab Qn (S) 53 [IU]/mL 0-9 [facility] Comment on above: Negative <5 Equivoca l 5 - 9 Positive >9Performed at: [facility] - [facility] [address] [id number] Director: Pacheco Gramajo PhD, Phone: [phone] Serum or plasma albumin evelyn urement (mass/volume)Ordered By: Dr. Zambrano on 06-03-2022 Albumin [Mass/Vol] 3.9 g/dL 3.2-5.0 [facility] Serum or plasma albumin/glob ulin mass ratioOrdered By: Dr. Zambrano on 06-03-2022 Albumin/Globulin [Mass ratio] 1.1 {ratio} 0.9-2.4 [facility] Serum or plasma calcium evelyn urement (mass/volume)Ordered By: Dr. Zambrano on 06-03-2022 Calcium [Mass/Vol] 9.5 mg/dL 8.5-10.1 [facility] Serum or plasma complement C 3 measurement (mass/volume)Ordered By: Dr. Zambrano on 06-03-2022 Complement C3 [Mass/Vol] 80 mg/dL 82-167 [facility] Comment on above: Performed at: [facility] - [facility] [address] [id number] Director: Pacheco Gramajo PhD, Phone: [phone] Serum or plasma complement C 4 measurement (mass/volume)Ordered By: Dr. Zambrano on 06-03-2022 Complement C4 [Mass/Vol] 10 mg/dL 12-38 [facility] Serum or plasma creatinine m easurement (mass/volume)Ordered By: Dr. Zambrano on 06-03-2022 Creatinine [Mass/Vol] 0.72 mg/dL 0.55-1.02 [facility] Comment on above: The validity of the calculated GFR & GFRAA in patients over 70 years has not been determined. Clinical correlation is essential. Serum or plasma urea nitroge n measurement (mass/volume)Ordered By: Dr. Zambrano on 06-03-2022 Urea nitrogen [Mass/Vol] 15 mg/dL 7-18 [facility] Thin prep Papanicolaou smear with manual screeningOrdered By: Dr. Zambrano on 06-03-2022 Thin prep Papanicolaou smear with manual screening 22 U/L 15-37 [facility] Thin prep Papanicolaou smear with manual screening 5 5-15 [facility] Urine blood detectionOrdered By: Dr. Zambrano on 06-03-2022 RBC Ql (U) Negative Negative [facility] Urine clarityOrdered By: Dr. Zambrano on 06-03-2022 Clarity (U) Clear Clear [facility] Urine color determinationOrd ered By: Dr. Zambrano on 06-03-2022 Color (U) Yellow Yellow [facility] Urine creatinine measurement (mass/volume)Ordered By: Dr. Zambrano on 06-03-2022 Creatinine (U) [Mass/Vol] 30.20 mg/dL NO RANGE EST. [facility] Urine glucose detectionOrder ed By: Dr. Zambrano on 06-03-2022 Glucose Ql (U) Normal mg/dl Normal [facility] Urine leukocyte esterase det ection by dipstickOrdered By: Dr. Zambrano on 06-03-2022 Leukocyte esterase Test strip Ql (U) Negative Negative [facility] Urine pHOrdered By: Dr. Seven oliver on 06-03-2022 pH (U) 6.5 [pH] 5.0 - 8.0 [facility] Urine protein measurement (m ass/volume)Ordered By: Dr. Zambrano on 06-03-2022 Protein (U) [Mass/Vol] 7.9 mg/dL 0.0-11.8 [facility] Urine protein/creatinine mas s ratioOrdered By: Dr. Zambrano on 06-03-2022 Protein/Creatinine (U) [Mass ratio] 262 mg/g CRE 0-200 [facility] Urine specific gravity measu rementOrdered By: Dr. Zambrano on 06-03-2022 Specific gravity (U) [Rel density] 1.010 1.002-1.030 [facility] Urobilinogen Auto test strip Ql (U)Ordered By: Dr. Zambrano on 06-03-2022 Urobilinogen Ql (U) Normal mg/dl Normal [facility] Absolute lymphocyte countOrd ered By: Dr. Zambrano on 03-04-2022 Lymphocytes Auto (Unsp spec) [#/Vol] 0.86 10*3/uL 0.83-4.51 [facility] Basophil percentageOrdered B y: Dr. Zambrano on 03-04-2022 Basophils/100 WBC (Bld) 0.8 % 0-1 [facility] Bilirubin [Mass/Vol] 0.30 mg/dL 0.20-1.00 [facility] Comment on above: For patients on eltr ombopag therapy, use of Dimension [place] TBIL is not recommended. Chloride [Moles/Vol] 103 mmol/L 98-107 [facility] Eosinophils/100 WBC (Bld) 2.4 % 0-5 [facility] Glucose [Mass/Vol] 59 mg/dL 74-106 [facility] Neutrophils (Bld) [#/Vol] 2.3 10*3/uL 2.0-7.7 [facility] Neutrophils/100 WBC (Bld) 61.5 % 47-70 [facility] Potassium [Moles/Vol] 4.2 mmol/L 3.5-5.1 [facility] Protein [Mass/Vol] 6.7 g/dL 6.4-8.2 [facility] Sodium [Moles/Vol] 140 mmol/L 136-145 [facility] WBC (Bld) [#/Vol] 3.8 10*3/uL 4.4-11.0 [facility] Bilirubin Test strip Ql (U)O rdered By: Dr. Zambrano on 03-04-2022 Bilirubin Ql (U) Negative Negative [facility] Blood erythrocytes count (nu mber/volume)Ordered By: Dr. Zambrano on 03-04-2022 RBC (Bld) [#/Vol] 4.09 10*6/uL 4.2-5.4 [facility] Blood hemoglobin measurement (mass/volume)Ordered By: Dr. Zambrano on 03-04-2022 Hemoglobin (Bld) [Mass/Vol] 12.9 g/dL 12.0-15.0 [facility] Blood lymphocytes/100 leukoc ytesOrdered By: Dr. Zambrano on 03-04-2022 Lymphocytes/100 WBC (Bld) 22.6 % 19-41 [facility] Blood monocytes/100 leukocyt esOrdered By: Dr. Zambrano on 03-04-2022 Monocytes/100 WBC (Bld) 12.4 % 0-10 [facility] Blood platelet mean volumeOr dered By: Dr. Zambrano on 03-04-2022 Platelet mean volume (Bld) [Entitic vol] 11.5 fL 6.2-12.0 [facility] Determination of erythrocyte mean corpuscular volume (MCV)Ordered By: Dr. Zambrano on 03-04-2022 MCV (RBC) [Entitic vol] 101.5 fL 81-99 [facility] Hematocrit Auto (Bld) [Volum e fraction]Ordered By: Dr. Zambrano on 03-04-2022 Hematocrit (Bld) [Volume fraction] 41.5 % 37-47 [facility] Ketones Test strip Ql (U)Ord ered By: Dr. Zambrano on 03-04-2022 Ketones Ql (U) Negative Negative [facility] Laboratory - Chemistry and C hemistry - challengeOrdered By: Dr. Zambrano on 03-04-2022 ALP [Catalytic activity/Vol] 70 U/L 45-117 [facility] ALT [Catalytic activity/Vol] 20 U/L 13-56 [facility] CO2 [Moles/Vol] 28.0 mmol/L 21.0-32.0 [facility] Globulin (S) [Mass/Vol] 3.2 g/dL 2.2-4.2 [facility] Urea nitrogen/Creatinine [Mass ratio] 18.5 mg/mg 10-20 [facility] Laboratory - Hematology and Cell countsOrdered By: Dr. Zambrano on 03-04-2022 Erythrocyte distribution width (RBC) [Entitic vol] 48.6 fL 35.1-43.9 [facility] Erythrocyte distribution width (RBC) [Ratio] 13.1 % 11.6-14.6 [facility] Immature granulocytes/100 WBC (Bld) 0.300 % 0.0-0.9 [facility] Comment on above: IG% - Immature Granu locytes (promyelocytes, myelocytes and metamyelocytes) > 1% indicates that a LEFT SHIFT is Present. MCH (RBC) [Entitic mass] 31.5 pg 27.0-32.0 [facility] Nucleated RBC/100 WBC (Bld) [Ratio] 0 % 0-5 [facility] MCHC Auto (RBC) [Mass/Vol]Or dered By: Dr. Zambrano on 03-04-2022 MCHC (RBC) [Mass/Vol] 31.1 g/dL 32-36 [facility] Nitrite Test strip Ql (U)Ord ered By: Dr. Zambrano on 03-04-2022 Nitrite Ql (U) Negative Negative [facility] No Panel InformationOrdered By: Dr. Zambrano on 03-04-2022 Estimated GFR (MDRD) Amer 123 mL/min >60 [facility] Comment on above: GFR Calc Estimated GFR (MDRD) Non-Af Amer 102 mL/min >60 [facility] Comment on above: Non- GFR Calc Platelets bldOrdered By: Dr. Zambrano on 03-04-2022 Platelets (Bld) [#/Vol] 196 10*3/uL 150-450 [facility] Protein Test strip Ql (U)Ord ered By: Dr. Zambrano on 03-04-2022 Protein Ql (U) 15 mg/dl Negative [facility] Serum DNA double strand anti body assay (units/volume)Ordered By: Dr. Zambrano on 03-04-2022 DNA double strand Ab Qn (S) 62 [IU]/mL 0-9 [facility] Comment on above: Negative <5 Equivoca l 5 - 9 Positive >9Performed at: - [facility] [id number] Director: Pacheco Gramajo PhD, Phone: [phone] Serum or plasma albumin evelyn urement (mass/volume)Ordered By: Dr. Zambrano on 03-04-2022 Albumin [Mass/Vol] 3.5 g/dL 3.2-5.0 [facility] Serum or plasma albumin/glob ulin mass ratioOrdered By: Dr. Zambrano on 03-04-2022 Albumin/Globulin [Mass ratio] 1.1 {ratio} 0.9-2.4 [facility] Serum or plasma calcium evelyn urement (mass/volume)Ordered By: Dr. Zambrano on 03-04-2022 Calcium [Mass/Vol] 8.9 mg/dL 8.5-10.1 [facility] Serum or plasma complement C 3 measurement (mass/volume)Ordered By: Dr. Zambrano on 03-04-2022 Complement C3 [Mass/Vol] 74 mg/dL 82-167 [facility] Comment on above: Performed at: [place] [id number] Director: Pacheco Gramajo PhD, Phone: [phone] Serum or plasma complement C 4 measurement (mass/volume)Ordered By: Dr. Zambrano on 03-04-2022 Complement C4 [Mass/Vol] 10 mg/dL 12-38 [facility] Serum or plasma creatinine m easurement (mass/volume)Ordered By: Dr. Zambrano on 03-04-2022 Creatinine [Mass/Vol] 0.65 mg/dL 0.55-1.02 [facility] Comment on above: The validity of the calculated GFR & GFRAA in patients over 70 years has not been determined. Clinical correlation is essential. Serum or plasma urea nitroge n measurement (mass/volume)Ordered By: Dr. Zambrano on 03-04-2022 Urea nitrogen [Mass/Vol] 12 mg/dL 7-18 [facility] Thin prep Papanicolaou smear with manual screeningOrdered By: Dr. Zambrano on 03-04-2022 Thin prep Papanicolaou smear with manual screening 15 U/L 15-37 [facility] Thin prep Papanicolaou smear with manual screening 9 5-15 [facility] Urine blood detectionOrdered By: Dr. Zambrano on 03-04-2022 RBC Ql (U) Negative Negative [facility] Urine clarityOrdered By: Dr. Zambrano on 03-04-2022 Clarity (U) Sl. Cloudy Clear [facility] Urine color determinationOrd ered By: Dr. Zambrano on 03-04-2022 Color (U) Yellow Yellow [facility] Urine creatinine measurement (mass/volume)Ordered By: Dr. Zambrano on 03-04-2022 Creatinine (U) [Mass/Vol] 137.00 mg/dL NO RANGE EST. [facility] Urine glucose detectionOrder ed By: Dr. Zambrano on 03-04-2022 Glucose Ql (U) Normal mg/dl Normal [facility] Urine leukocyte esterase det ection by dipstickOrdered By: Dr. Zambrano on 03-04-2022 Leukocyte esterase Test strip Ql (U) Negative Negative [facility] Urine pHOrdered By: Dr. Seven oliver on 03-04-2022 pH (U) 6.5 [pH] 5.0 - 8.0 [facility] Urine protein measurement (m ass/volume)Ordered By: Dr. Zambrano on 03-04-2022 Protein (U) [Mass/Vol] 29.9 mg/dL 0.0-11.8 [facility] Urine protein/creatinine mas s ratioOrdered By: Dr. Zambrano on 03-04-2022 Protein/Creatinine (U) [Mass ratio] 218 mg/g CRE 0-200 [facility] Urine specific gravity measu rementOrdered By: Dr. Zambrano on 03-04-2022 Specific gravity (U) [Rel density] 1.015 1.002-1.030 [facility] Urobilinogen Auto test strip Ql (U)Ordered By: Dr. Zambrano on 03-04-2022 Urobilinogen Ql (U) Normal mg/dl Normal [facility] Absolute lymphocyte counton 01-15-2022 Lymphocytes Auto (Unsp spec) [#/Vol] 0.64 10*3/uL 0.83-4.51 [facility] Work Phone: Basophil percentageon 2021 Basophils/100 WBC (Bld) 0.7 % 0-1 [facility] Work Phone: Bilirubin [Mass/Vol] 0.60 mg/dL 0.20-1.00 [facility] Work Phone: Comment on above: For patients on eltr ombopag therapy, use of Dimension [place] TBIL is not recommended. Chloride [Moles/Vol] 101 mmol/L 98-107 [facility] Work Phone: Eosinophils/100 WBC (Bld) 2.1 % 0-5 [facility] Work Phone: Glucose [Mass/Vol] 74 mg/dL 74-106 [facility] Work Phone: Neutrophils (Bld) [#/Vol] 1.6 10*3/uL 2.0-7.7 [facility] Work Phone: Neutrophils/100 WBC (Bld) 56.1 % 47-70 [facility] Work Phone: Potassium [Moles/Vol] 4.4 mmol/L 3.5-5.1 [facility] Work Phone: Protein [Mass/Vol] 6.8 g/dL 6.4-8.2 [facility] Work Phone: Sodium [Moles/Vol] 136 mmol/L 136-145 [facility] Work Phone: WBC (Bld) [#/Vol] 2.9 10*3/uL 4.4-11.0 [facility] Work Phone: Bilirubin Test strip Ql (U)o n 01-15-2022 Bilirubin Ql (U) Negative Negative [facility] Work Phone: Blood erythrocytes count (nu mber/volume)on 01-15-2022 RBC (Bld) [#/Vol] 3.78 10*6/uL 4.2-5.4 [facility] Work Phone: Blood hemoglobin measurement (mass/volume)on 01-15-2022 Hemoglobin (Bld) [Mass/Vol] 12.0 g/dL 12.0-15.0 [facility] Work Phone: Blood lymphocytes/100 leukoc yteson 01-15-2022 Lymphocytes/100 WBC (Bld) 22.3 % 19-41 [facility] Work Phone: Blood monocytes/100 leukocyt eson 01-15-2022 Monocytes/100 WBC (Bld) 18.5 % 0-10 [facility] Work Phone: Blood platelet mean volumeon 01-15-2022 Platelet mean volume (Bld) [Entitic vol] 10.7 fL 6.2-12.0 [facility] Work Phone: Determination of erythrocyte mean corpuscular volume (MCV)on 01-15-2022 MCV (RBC) [Entitic vol] 100.5 fL 81-99 [facility] Work Phone: Hematocrit Auto (Bld) [Volum e fraction]on 01-15-2022 Hematocrit (Bld) [Volume fraction] 38.0 % 37-47 [facility] Work Phone: Ketones Test strip Ql (U)on 01-15-2022 Ketones Ql (U) Negative Negative [facility] Work Phone: Laboratory - Chemistry and C hemistry - challengeon 01-15-2022 ALP [Catalytic activity/Vol] 59 U/L 45-117 [facility] Work Phone: ALT [Catalytic activity/Vol] 18 U/L 13-56 [facility] Work Phone: CO2 [Moles/Vol] 30.0 mmol/L 21.0-32.0 [facility] Work Phone: Globulin (S) [Mass/Vol] 3.4 g/dL 2.2-4.2 [facility] Work Phone: Urea nitrogen/Creatinine [Mass ratio] 18.5 mg/mg 10-20 [facility] Work Phone: Laboratory - Hematology and Cell countson 01-15-2022 Erythrocyte distribution width (RBC) [Entitic vol] 46.1 fL 35.1-43.9 [facility] Work Phone: [phone] Erythrocyte distribution width (RBC) [Ratio] 12.5 % 11.6-14.6 [facility] Work Phone: [phone] Immature granulocytes/100 WBC (Bld) 0.300 % 0.0-0.9 [facility] Work Phone: [phone] Comment on above: IG% - Immature Granu locytes (promyelocytes, myelocytes and metamyelocytes) > 1% indicates that a LEFT SHIFT is Present. MCH (RBC) [Entitic mass] 31.7 pg 27.0-32.0 [facility] Work Phone: [phone] Nucleated RBC/100 WBC (Bld) [Ratio] 0 % 0-5 [facility] Work Phone: [phone] MCHC Auto (RBC) [Mass/Vol]on 01-15-2022 MCHC (RBC) [Mass/Vol] 31.6 g/dL 32-36 [facility] Work Phone: [phone] Nitrite Test strip Ql (U)on 01-15-2022 Nitrite Ql (U) Negative Negative [facility] Work Phone: [phone] No Panel Informationon 01-15 Estimated GFR (MDRD) Amer 123 mL/min >60 [facility] Work Phone: [phone] Comment on above: GFR Calc Estimated GFR (MDRD) Non-Af Amer 101 mL/min >60 [facility] Work Phone: [phone] Comment on above: Non- GFR Calc Platelets bldon 01-15-2022 Platelets (Bld) [#/Vol] 251 10*3/uL 150-450 [facility] Work Phone: [phone] Protein Test strip Ql (U)on 01-15-2022 Protein Ql (U) 15 mg/dl Negative [facility] Work Phone: [phone] Serum DNA double strand anti body assay (units/volume)on 01-15-2022 DNA double strand Ab Qn (S) 73 [IU]/mL 0-9 [facility] Work Phone: [phone] Comment on above: Negative <5 Equivoca l 5 - 9 Positive >9Performed at: [facility] [address] [id number] Director: Pacheco Gramajo PhD, Phone: [phone] Serum or plasma albumin evelyn urement (mass/volume)on 01-15-2022 Albumin [Mass/Vol] 3.4 g/dL 3.2-5.0 [facility] Work Phone: Serum or plasma albumin/glob ulin mass ratioon 01-15-2022 Albumin/Globulin [Mass ratio] 1.0 {ratio} 0.9-2.4 [facility] Work Phone: Serum or plasma calcium evelyn urement (mass/volume)on 01-15-2022 Calcium [Mass/Vol] 9.2 mg/dL 8.5-10.1 [facility] Work Phone: Serum or plasma complement C 3 measurement (mass/volume)on 01-15-2022 Complement C3 [Mass/Vol] 79 mg/dL 82-167 [facility] [facility] Work Phone: Comment on above: Performed at: [facility] [address] [id number] Director: Pacheco Gramajo PhD, Phone: [phone] Serum or plasma complement C 4 measurement (mass/volume)on 01-15-2022 Complement C4 [Mass/Vol] 13 mg/dL 12-38 [facility] Work Phone: Serum or plasma creatinine m easurement (mass/volume)on 01-15-2022 Creatinine [Mass/Vol] 0.65 mg/dL 0.55-1.02 [facility] Work Phone: Comment on above: The validity of the calculated GFR & GFRAA in patients over 70 years has not been determined. Clinical correlation is essential. Serum or plasma urea nitroge n measurement (mass/volume)on 01-15-2022 Urea nitrogen [Mass/Vol] 12 mg/dL 7-18 [facility] Work Phone: Thin prep Papanicolaou smear with manual screeningon 01-15-2022 Thin prep Papanicolaou smear with manual screening 19 U/L 15-37 [facility] Work Phone: Thin prep Papanicolaou smear with manual screening 5 5-15 [facility] Work Phone: Urine blood detectionon 01-04 RBC Ql (U) Negative Negative [facility] Work Phone: Urine clarityon 01-15-2022 Clarity (U) Sl. Cloudy Clear [facility] Work Phone: [phone] Urine color determinationon 01-15-2022 Color (U) Yellow Yellow [facility] Work Phone: Urine creatinine measurement (mass/volume)on 01-15-2022 Creatinine (U) [Mass/Vol] 105.00 mg/dL NO RANGE EST. [facility] Work Phone: Urine glucose detectionon Glucose Ql (U) Normal mg/dl Normal [facility] Work Phone: Urine leukocyte esterase det ection by dipstickon 01-15-2022 Leukocyte esterase Test strip Ql (U) Negative Negative [facility] Work Phone: Urine pHon 01-15-2022 pH (U) 7.0 [pH] 5.0 - 8.0 [facility] Work Phone: Urine protein measurement (m ass/volume)on 01-15-2022 Protein (U) [Mass/Vol] 31.7 mg/dL 0.0-11.8 [facility] Work Phone: [phone] Urine protein/creatinine mas s ratioon 01-15-2022 Protein/Creatinine (U) [Mass ratio] 302 mg/g CRE 0-200 [facility] Work Phone: Urine specific gravity measu rementon 01-15-2022 Specific gravity (U) [Rel density] 1.010 1.002-1.030 [facility] Work Phone: Urobilinogen Auto test strip Ql (U)on 01-15-2022 Urobilinogen Ql (U) Normal mg/dl Normal [facility] Work Phone: Office Visit (Primary Care T xt/Forms)on 01-03-2022 Follow-up visit Diagnoses/Problems Assessed Sore throat (462) (J02.9) Orders Encounter for immunization Temporarily Stop: Influenza, seasonal, injectable Sore throat Start: Doxycycline Hyclate 100 MG Oral Tablet; TAKE 1 TABLET TWICE DAILY Chief Complaint ST, FEVER , FLORES, NAUSEA, CONGESTION, RUNNY NOSE AND COUGH X 3 DAYS. TOOK HOME COVID TEST THIS MORNING AND RESULTS WERE NEGATIVE History of Present Illness Patient presents with a c/o sore throat, fever and chills that started 2 days ago. She has been treating her symptoms at home with Acetaminophen. She states that she has not been exposed to any illness, does not have regular exposure to the public at work. She has not received treatment or testing at any other site. Denies CP AND SOB. No GI/ symptoms. Lungs clear throughout. Oropharynx erythematous without inflammation or exudate. The patient states her pain is increased when swallowing. She has a history of Lupus and is on daily steroid therapy. She does not feel COVID AND Influenza testing are necessary at this time. Takes daily prednisone we will not use a taper dose at this time. Does not look ill but nontoxic. With immunosuppression, recommend an antibiotic. Call if she is not getting any better next 2 to 3 days Review of Systems Constitutional: feeling tired, fever, feeling poorly and chills, but no recent weight gain and no recent weight loss. Eyes: no eye redness, no blurry vision, no discharge from the eyes and no double vision. ENT: sore throat, nasal discharge, hoarseness and post nasal drip, but no ear pain, no swollen lymph nodes, no nasal congestion, no ear fullness, no sinus pressure, no dry mouth, no mouth sores, no ringing in ears, no discharge from the ears, no bleeding gums and as noted in HPI. Cardiovascular: fast heart rate, but no chest pain, no palpitations, no shortness of breath, no chest pressure and the heart rate was not slow. Respiratory: no cough, no dyspnea with exertion, no dyspnea at rest, no chronic cough, no wheezing and no paroxysmal nocturnal dyspnea. Gastrointestinal: no abdominal pain, no constipation, no diarrhea, no heartburn, no nausea, no bloating, no blood in stools and no dysphagia. Genitourinary: normal urine frequency, no incontinence, no dysuria, no urinary urgency. Musculoskeletal: no arthralgias, no myalgias, no joint swelling, no localized joint pain, no muscle weakness and no joint stiffness. Integumentary: no skin lesions and no rashes. Neurological: no headache, no dizziness and no numbness or tingling. Active Problems Problems Chest wall pain (786.52) (R07.89) Encounter for immunization (V03.89) (Z23) Encounter for screening mammogram for malignant neoplasm of breast (V76.12) (Z12.31) Pulmonary nodule (793.11) (R91.1) Rheumatoid arthritis (714.0) (M06.9) Screen for colon cancer (V76.51) (Z12.11) Screening breast examination (V76.10) (Z12.39) SLE (systemic lupus erythematosus) (710.0) (M32.9) Past Medical History Problems History of mammogram (V15.89) (Z92.89) Surgical History Problems History of Carpal tunnel surgery History of Finger surgical procedure History of Kidney biopsy Family History Mother No pertinent family history Father No pertinent family history Social History Problems Consumes alcohol occasionally (V49.89) (Z78.9) No advance directives (V49.89) (Z78.9) Non-smoker (V49.89) (Z78.9) Current Meds Medication NameInstruction Benlysta 200 MG/ML Subcutaneous Solution Auto-injector CellCept 500 MG Oral TabletTAKE 1 TABLET TWICE DAILY. Gabapentin 300 MG Oral CapsuleTAKE 1 CAPSULE AT BEDTIME. Ibuprofen 600 MG Oral Tablet Plaquenil 200 MG Oral TabletTAKE 1 TABLET TWICE DAILY WITH FOOD. predniSONE 5 MG Oral TabletTAKE 1 TABLET DAILY. Probiotic Formula CAPS Turmeric Curcumin Oral Capsule Vitamin D TABS Allergies Medication amoxicillin lidocaine Zithromax Vitals Vital Signs Recorded: [id number] 11:13AM Temperature: 101.1 F Heart Rate: 105 Systolic: 126 Diastolic: 68 Height: 5 ft 3.5 in Weight: 129 lb 1 oz BMI Calculated: 22.5 kg/m2 BSA Calculated: 1.61 Tobacco Use: b) No Falls Screening (Age 18+): a) No falls within the last year O2 Saturation: 98 Physical Exam General: Alert and oriented, No acute distress. HEENT: Normocephalic, Tympanic membranes are clear, Normal hearing, mild pharyngeal erythema, No sinus tenderness. Neck: Supple, Non-tender, No lymphadenopathy. Respiratory: Lungs are clear to auscultation, Respirations are non-labored, Breath sounds are equal, Symmetrical chest wall expansion. Cardiovascular: Normal rate, Regular rhythm, No murmur, No gallop. Integumentary: Warm, Dry, [place], Intact, No rash. Psychiatric: Cooperative, Appropriate mood AND affect, Normal judgment. Signatures Electronically signed by : Roosevelt Carter MD; Jan 03 2022 1:37PM EST (Author) Normal [employer] Tobacco Screening.on 022 Fall risk assessment a) No falls within the last year [facility] Work Phone: Tobacco use status CPHS b) No M [facility] Work Phone: Basophil percentageon 2021 Chloride [Moles/Vol] 100 mmol/L 98-107 [facility] Work Phone: Glucose [Mass/Vol] 94 mg/dL 74-106 [facility] Work Phone: Potassium [Moles/Vol] 4.3 mmol/L 3.5-5.1 [facility] Work Phone: Sodium [Moles/Vol] 136 mmol/L 136-145 [facility] Work Phone: WBC (Bld) [#/Vol] 4.0 10*3/uL 4.4-11.0 [facility] Work Phone: Blood erythrocytes count (nu mber/volume)on 12-31-2021 RBC (Bld) [#/Vol] 3.76 10*6/uL 4.2-5.4 [facility] Work Phone: [phone] Blood hemoglobin measurement (mass/volume)on 12-31-2021 Hemoglobin (Bld) [Mass/Vol] 11.9 g/dL 12.0-15.0 [facility] Work Phone: [phone] Blood platelet mean volumeon 12-31-2021 Platelet mean volume (Bld) [Entitic vol] 10.8 fL 6.2-12.0 [facility] Work Phone: [phone] Determination of erythrocyte mean corpuscular volume (MCV)on 12-31-2021 MCV (RBC) [Entitic vol] 100.3 fL 81-99 [facility] Work Phone: [phone] Hematocrit Auto (Bld) [Volum e fraction]on 12-31-2021 Hematocrit (Bld) [Volume fraction] 37.7 % 37-47 [facility] Work Phone: [phone] Laboratory - Chemistry and C hemistry - challengeon 12-31-2021 CO2 [Moles/Vol] 29.0 mmol/L 21.0-32.0 [facility] Work Phone: [phone] Urea nitrogen/Creatinine [Mass ratio] 16.9 mg/mg 10-20 [facility] Work Phone: [phone] Laboratory - Hematology and Cell countson 12-31-2021 Erythrocyte distribution width (RBC) [Entitic vol] 46.2 fL 35.1-43.9 [facility] Work Phone: [phone] Erythrocyte distribution width (RBC) [Ratio] 12.5 % 11.6-14.6 [facility] Work Phone: [phone] MCH (RBC) [Entitic mass] 31.6 pg 27.0-32.0 [facility] Work Phone: [phone] MCHC Auto (RBC) [Mass/Vol]on 12-31-2021 MCHC (RBC) [Mass/Vol] 31.6 g/dL 32-36 [facility] Work Phone: [phone] No Panel Informationon 12-31 Estimated GFR (MDRD) Amer 111 mL/min >60 [facility] Work Phone: [phone] Comment on above: GFR Calc Estimated GFR (MDRD) Non-Af Amer 91 mL/min >60 [facility] Work Phone: [phone] Comment on above: Non- GFR Calc Urine Microalbumin/Creatinine Ratio 143.0 mg/g CRE <30 [facility] Work Phone: Platelets bldon 12-31-2021 Platelets (Bld) [#/Vol] 191 10*3/uL 150-450 [facility] Work Phone: Serum DNA double strand anti body assay (units/volume)on 12-31-2021 DNA double strand Ab Qn (S) 64 [IU]/mL 0-9 [facility] Work Phone: Comment on above: Negative <5 Equivoca l 5 - 9 Positive >9Performed at: [facility] [id number] [place], [place] [id number] Director: Pacheco Gramajo PhD, Phone: [phone] Serum or plasma calcium evelyn urement (mass/volume)on 12-31-2021 Calcium [Mass/Vol] 9.3 mg/dL 8.5-10.1 [facility] Work Phone: Serum or plasma complement C 3 measurement (mass/volume)on 12-31-2021 Complement C3 [Mass/Vol] 79 mg/dL 82-167 [facility] Work Phone: Comment on above: Performed at: [facility] [id number] [place], [place] [id number] Director: Pacheco Gramajo PhD, Phone: [phone] Serum or plasma creatinine m easurement (mass/volume)on 12-31-2021 Creatinine [Mass/Vol] 0.71 mg/dL 0.55-1.02 [facility] Work Phone: Comment on above: The validity of the calculated GFR & GFRAA in patients over 70 years has not been determined. Clinical correlation is essential. Serum or plasma urea nitroge n measurement (mass/volume)on 12-31-2021 Urea nitrogen [Mass/Vol] 12 mg/dL 7-18 [facility] Work Phone: Thin prep Papanicolaou smear with manual screeningon 12-31-2021 Thin prep Papanicolaou smear with manual screening 7 5-15 [facility] Work Phone: Thin prep Papanicolaou smear with manual screening 26.6 mg/L NO RANGE EST. [facility] Work Phone: Urine creatinine measurement (mass/volume)on 12-31-2021 Creatinine (U) [Mass/Vol] 18.60 mg/dL NO RANGE EST. [facility] Work Phone: Absolute lymphocyte counton 12-05-2021 Lymphocytes Auto (Unsp spec) [#/Vol] 0.44 10*3/uL 0.83-4.51 [facility] Work Phone: Basophil percentageon 2021 Basophils/100 WBC (Bld) 0.9 % 0-1 [facility] Work Phone: Bilirubin [Mass/Vol] 0.40 mg/dL 0.20-1.00 [facility] Work Phone: Comment on above: For patients on eltr ombopag therapy, use of Dimension [place] TBIL is not recommended. Chloride [Moles/Vol] 101 mmol/L 98-107 [facility] Work Phone: Eosinophils/100 WBC (Bld) 3.4 % 0-5 [facility] Work Phone: Glucose [Mass/Vol] 70 mg/dL 74-106 [facility] Work Phone: Neutrophils (Bld) [#/Vol] 1.4 10*3/uL 2.0-7.7 [facility] Work Phone: Neutrophils/100 WBC (Bld) 60.5 % 47-70 [facility] Work Phone: Potassium [Moles/Vol] 4.1 mmol/L 3.5-5.1 [facility] Work Phone: [phone] Protein [Mass/Vol] 7.2 g/dL 6.4-8.2 [facility] Work Phone: [phone] Sodium [Moles/Vol] 135 mmol/L 136-145 [facility] Work Phone: WBC (Bld) [#/Vol] 2.3 10*3/uL 4.4-11.0 [facility] Work Phone: Bilirubin Test strip Ql (U)o n 12-05-2021 Bilirubin Ql (U) Negative Negative [facility] Work Phone: [phone] Blood erythrocytes count (nu mber/volume)on 12-05-2021 RBC (Bld) [#/Vol] 4.00 10*6/uL 4.2-5.4 [facility] Work Phone: Blood hemoglobin measurement (mass/volume)on 12-05-2021 Hemoglobin (Bld) [Mass/Vol] 12.6 g/dL 12.0-15.0 [facility] Work Phone: Blood lymphocytes/100 leukoc yteson 12-05-2021 Lymphocytes/100 WBC (Bld) 18.9 % 19-41 [facility] Work Phone: Blood manual differential co mment interpretation (narrative result)on 12-05-2021 Manual differential comment Samir (Bld) [Interp] COMMENT [facility] Work Phone: Comment on above: LYMPHOPENIA. Blood monocytes/100 leukocyt eson 12-05-2021 Monocytes/100 WBC (Bld) 15.9 % 0-10 [facility] Work Phone: Blood platelet mean volumeon 12-05-2021 Platelet mean volume (Bld) [Entitic vol] 11.6 fL 6.2-12.0 [facility] Work Phone: Determination of erythrocyte mean corpuscular volume (MCV)on 12-05-2021 MCV (RBC) [Entitic vol] 98.8 fL 81-99 [facility] Work Phone: Hematocrit Auto (Bld) [Volum e fraction]on 12-05-2021 Hematocrit (Bld) [Volume fraction] 39.5 % 37-47 [facility] Work Phone: [phone] Ketones Test strip Ql (U)on 12-05-2021 Ketones Ql (U) Negative Negative [facility] Work Phone: [phone] Laboratory - Chemistry and C hemistry - challengeon 12-05-2021 ALP [Catalytic activity/Vol] 50 U/L 45-117 [facility] Work Phone: [phone] ALT [Catalytic activity/Vol] 19 U/L 13-56 [facility] Work Phone: [phone] CO2 [Moles/Vol] 28.0 mmol/L 21.0-32.0 [facility] Work Phone: [phone] Globulin (S) [Mass/Vol] 3.4 g/dL 2.2-4.2 [facility] Work Phone: [phone] Urea nitrogen/Creatinine [Mass ratio] 13.3 mg/mg 10-20 [facility] Work Phone: [phone] Laboratory - Hematology and Cell countson 12-05-2021 Erythrocyte distribution width (RBC) [Entitic vol] 44.6 fL 35.1-43.9 [facility] Work Phone: [phone] Erythrocyte distribution width (RBC) [Ratio] 12.2 % 11.6-14.6 [facility] Work Phone: [phone] Immature granulocytes/100 WBC (Bld) 0.400 % 0.0-0.9 [facility] Work Phone: [phone] Comment on above: IG% - Immature Granu locytes (promyelocytes, myelocytes and metamyelocytes) > 1% indicates that a LEFT SHIFT is Present. MCH (RBC) [Entitic mass] 31.5 pg 27.0-32.0 [facility] Work Phone: [phone] Nucleated RBC/100 WBC (Bld) [Ratio] 0 % 0-5 [facility] Work Phone: [phone] MCHC Auto (RBC) [Mass/Vol]on 12-05-2021 MCHC (RBC) [Mass/Vol] 31.9 g/dL 32-36 [facility] Work Phone: [phone] Nitrite Test strip Ql (U)on 12-05-2021 Nitrite Ql (U) Negative Negative [facility] Work Phone: No Panel Informationon 12-05 Estimated GFR (MDRD) Amer 117 mL/min >60 [facility] Work Phone: Comment on above: GFR Calc Estimated GFR (MDRD) Non-Af Amer 97 mL/min >60 [facility] Work Phone: Comment on above: Non- GFR Calc Platelets bldon 12-05-2021 Platelets (Bld) [#/Vol] 183 10*3/uL 150-450 [facility] Work Phone: Protein Test strip Ql (U)on 12-05-2021 Protein Ql (U) 15 mg/dl Negative [facility] Work Phone: Review by pathologiston Pathologist review Samir (Unsp spec) [Interp] Reviewed [facility] Work Phone: Comment on above: Previous reported re sult: Melissa herman Edited by: RGOOD on 12/06/21:1504Leukopenia and neutropenia. Clinical correlation necessary.Sj Geiger M.D. 12/06/21 AMENDED REPORT 12/06/21 1504 PATH REV previously reported as: Melissa herman Serum DNA double strand anti body assay (units/volume)on 12-05-2021 DNA double strand Ab Qn (S) 63 [IU]/mL 0-9 [facility] Work Phone: Comment on above: Negative <5 Equivoca l 5 - 9 Positive >9Performed at: - [facility] [address] [id number] Director: Pacheco Gramajo PhD, Phone: [phone] Serum or plasma albumin evelyn urement (mass/volume)on 12-05-2021 Albumin [Mass/Vol] 3.8 g/dL 3.2-5.0 [facility] Work Phone: Serum or plasma albumin/glob ulin mass ratioon 12-05-2021 Albumin/Globulin [Mass ratio] 1.1 {ratio} 0.9-2.4 [facility] Work Phone: [phone] Serum or plasma calcium evelyn urement (mass/volume)on 12-05-2021 Calcium [Mass/Vol] 9.4 mg/dL 8.5-10.1 [facility] Work Phone: [phone] Serum or plasma complement C 3 measurement (mass/volume)on 12-05-2021 Complement C3 [Mass/Vol] 81 mg/dL 82-167 [facility] Work Phone: [phone] Comment on above: Performed at: [facility] [address] [id number] Director: Pacheco Gramajo PhD, Phone: [phone] Serum or plasma complement C 4 measurement (mass/volume)on 12-05-2021 Complement C4 [Mass/Vol] 13 mg/dL 12-38 [facility] Work Phone: [phone] Serum or plasma creatinine m easurement (mass/volume)on 12-05-2021 Creatinine [Mass/Vol] 0.68 mg/dL 0.55-1.02 [facility] Work Phone: [phone] Comment on above: The validity of the calculated GFR & GFRAA in patients over 70 years has not been determined. Clinical correlation is essential. Serum or plasma urea nitroge n measurement (mass/volume)on 12-05-2021 Urea nitrogen [Mass/Vol] 9 mg/dL 7-18 [facility] Work Phone: [phone] Thin prep Papanicolaou smear with manual screeningon 12-05-2021 Thin prep Papanicolaou smear with manual screening 20 U/L 15-37 [facility] Work Phone: [phone] Thin prep Papanicolaou smear with manual screening 6 5-15 [facility] Work Phone: Urine blood detectionon RBC Ql (U) Negative Negative [facility] Work Phone: [phone] Urine clarityon 12-05-2021 Clarity (U) Clear Clear [facility] Work Phone: [phone] Urine color determinationon 12-05-2021 Color (U) Yellow Yellow [facility] Work Phone: Urine creatinine measurement (mass/volume)on 12-05-2021 Creatinine (U) [Mass/Vol] 64.10 mg/dL NO RANGE EST. [facility] Work Phone: Urine glucose detectionon Glucose Ql (U) Normal mg/dl Normal [facility] Work Phone: Urine leukocyte esterase det ection by dipstickon 12-05-2021 Leukocyte esterase Test strip Ql (U) 100 /ul Negative [facility] Work Phone: Urine pHon 12-05-2021 pH (U) 7.0 [pH] 5.0 - 8.0 [facility] Work Phone: Urine protein measurement (m ass/volume)on 12-05-2021 Protein (U) [Mass/Vol] 22.0 mg/dL 0.0-11.8 [facility] Work Phone: Urine protein/creatinine mas s ratioon 12-05-2021 Protein/Creatinine (U) [Mass ratio] 343 mg/g CRE 0-200 [facility] Work Phone: Urine specific gravity measu rementon 12-05-2021 Specific gravity (U) [Rel density] 1.010 1.002-1.030 [facility] Work Phone: Urobilinogen Auto test strip Ql (U)on 12-05-2021 Urobilinogen Ql (U) Normal mg/dl Normal [facility] Work Phone: Laboratory - Molecular patho logyon 10-14-2021 Noninvasive colorectal cancer DNA and occult blood screening Samir (Stl) [Interp] Negative Negative [facility] Work Phone: Comment on above: [employer] (CLIA #:[id number] [place]QUELINE JAUREGUI [id number] REJI BRUNO , Clinical Laboratory Medical DirectorNEGATIVE TEST RESULT. A negative Cologuard result indicates a low likelihood that a colorectal cancer (CRC) or advanced adenoma (adenomatous polyps with more advanced pre-malignant features) is present. The chance that a person with a negative Cologuard test has a colorectal cancer is less than 1 in 1500 (negative predictive value >99.9%) or has an advanced adenoma is less than 5.3% (negative predictive value 94.7%). These data are based on a prospective cross-sectional study of 10,000 individuals at average risk for colorectal cancer who were screened with both Cologuard and colonoscopy. (Reymundo Thakur al, N Engl J Med 2014;370(14):1809-2402) The normal value (reference range) for this assay is negative.COLOGUARD RE-SCREENING RECOMMENDATION: Periodic colorectal cancer screening is an important part of preventive healthcare for asymptomatic individuals at average risk for colorectal cancer. Following a negative Cologuard result, the [place] [employer] and U.S. Multi-Society Task Force screening guidelines recommend a Cologuard re-screening interval of 3 years. References: [place] [employer] Guideline for Colorectal Cancer Screening: https://www.cancer.org/cancer/ogayt-ngedti-lntlti/detection-di agnosis-staging/acs-recommendations.html.; Dex DK, Bucky CR, Mara MaravillaK, Colorectal Cancer Screening: Recommendations for Physicians and Patients from the U.S. Multi-Society Task Force on Colorectal Cancer Screening , Am J Gastroenterology 2017; 112:8056-1625.TEST DESCRIPTION: Composite algorithmic analysis of stool DNA-biomarkers with hemoglobin immunoassay. Quantitative values of individual biomarkers are not reportable and are not associated with individual biomarker result reference ranges. Cologuard is intended for colorectal cancer screening of adults of either sex, 45 years or older, who are at average-risk for colorectal cancer (CRC). Cologuard has been approved for use by the U.S. FDA. The performance of Cologuard was established in a cross sectional study of average-risk adults aged 50-84. Cologuard performance in patients ages 45 to 49 years was estimated by sub-group analysis of near-age groups. Colonoscopies performed for a positive result may find as the most clinically significant lesion: colorectal cancer [4.0%], advanced adenoma (including sessile serrated polyps greater than or equal to 1cm diameter) [20%] or non- advanced adenoma [31%]; or no colorectal neoplasia [45%]. These estimates are derived from a prospective cross-sectional screening study of 10,000 individuals at average risk for colorectal cancer who were screened with both Cologuard and colonoscopy. (Reymundo Thakur al, N Engl J Med 2014;370(14):3363-9793.) Cologuard may produce a false negative or false positive result (no colorectal cancer or precancerous polyp present at colonoscopy follow up). A negative Cologuard test result does not guarantee the absence of CRC or advanced adenoma (pre-cancer). The current Cologuard screening interval is every 3 years. ([employer] and [place] Multi-Society Task Force). Cologuard performance data in a 10,000 patient pivotal study using colonoscopy as the reference method can be accessed at the following location: www.[employer]/results. Additional description of the Cologuard test process, warnings and precautions can be found at www.cologuard.com. Mamm - Screening Mammogram w / Tomosynthesison 10-10-2021 MG Breast Screening Normal [facility] Work Phone: Office Visit (Primary Care T xt/Forms)on 10-03-2021 Follow-up visit Diagnoses/Problems Health Maintenance/Risks Encounter for preventive health examination (V70.0) (Z00.00) Assessed History of mammogram (V15.89) (Z92.89) Screen for colon cancer (V76.51) (Z12.11) SLE (systemic lupus erythematosus) (710.0) (M32.9) Orders Encounter for screening mammogram for malignant neoplasm of breast Mamm - Screening Mammogram w/ Tomosynthesis; Status:Hold For - Scheduling; Requested for:03Oct2021; Radiologist to Determine Optimal Study : Y What are the patient's signs and symptoms ? : Annual Screening Mammogram Screen for colon cancer Cologuard Screening; Status:Active; Requested for:03Oct2021; SLE (systemic lupus erythematosus) Changed: From predniSONE 10 MG Oral Tablet TAKE 3 TABLET Daily To predniSONE 5 MG Oral Tablet TAKE 1 TABLET DAILY Chief Complaint YEARLY PHYSICAL History of Present Illness wellness MMG cologuard Recommend flu shot and COVID booster in the fall. But she would want to confirm that with rheumatology is ok. Review of Systems Constitutional: No weakness, No fatigue. Eye: No blurring, No visual disturbances. Respiratory: No shortness of breath, No cough. Cardiovascular: No chest pain, No palpitations. Gastrointestinal: No nausea, No diarrhea, No constipation. Musculoskeletal: No joint pain, No muscle pain. Integumentary: No rash, No breakdown. Neurologic: Alert and oriented X4, No headache. Psychiatric: No irritability, No sleeping problems. Active Problems Problems Chest wall pain (786.52) (R07.89) Encounter for immunization (V03.89) (Z23) Pulmonary nodule (793.11) (R91.1) Rheumatoid arthritis (714.0) (M06.9) Screen for colon cancer (V76.51) (Z12.11) Screening breast examination (V76.10) (Z12.39) SLE (systemic lupus erythematosus) (710.0) (M32.9) Past Medical History Problems History of mammogram (V15.89) (Z92.89) Surgical History Problems History of Carpal tunnel surgery History of Finger surgical procedure History of Kidney biopsy Family History Mother No pertinent family history Father No pertinent family history Social History Problems Consumes alcohol occasionally (V49.89) (Z78.9) No advance directives (V49.89) (Z78.9) Non-smoker (V49.89) (Z78.9) Current Meds Medication NameInstruction Alendronate Sodium 70 MG Oral Tablettake 1 tablet by mouth every week Benlysta 200 MG/ML Subcutaneous Solution Auto-injector CellCept 500 MG Oral TabletTAKE 1 TABLET TWICE DAILY. Gabapentin 300 MG Oral CapsuleTAKE 1 CAPSULE AT BEDTIME. Ibuprofen 600 MG Oral Tablet Plaquenil 200 MG Oral TabletTAKE 1 TABLET TWICE DAILY WITH FOOD. predniSONE 10 MG Oral TabletTAKE 3 TABLET Daily Probiotic Formula CAPS Turmeric Curcumin Oral Capsule Ventolin HFA 108 (90 Base) MCG/ACT Inhalation Aerosol SolutionINHALE 2 PUFFS 4 times daily PRN shortness of breath Vitamin D TABS Allergies Medication amoxicillin lidocaine Zithromax Vitals Vital Signs Recorded: 03Oct2021 08:38AM Heart Rate: 67 Systolic: 110 Diastolic: 68 Height: 5 ft 3.5 in Weight: 134 lb 7 oz BMI Calculated: 23.44 kg/m2 BSA Calculated: 1.64 Tobacco Use: b) No PHQ-2 #1. Over the last 2 weeks have you felt down, depressed or hopeless? (If yes, answer PHQ-9 below): No PHQ-2 #2. Over the last 2 weeks have you felt little interest or pleasure in doing things? (If yes, answer PHQ-9 below): No Falls Screening (Age 18+): a) No falls within the last year O2 Saturation: 98 Physical Exam General: Alert and oriented, No acute distress. Ambulation status: With steady gait. Appearance: Well nourished, Calm. Behavior: Cooperative. Respiratory: Lungs are clear to auscultation, Respirations are non-labored, Breath sounds are equal, Symmetrical chest wall expansion. Cardiovascular: Normal rate, Regular rhythm, No murmur, No gallop. Integumentary: Warm, Dry, [place], Intact. Psychiatric: Cooperative, Appropriate mood AND affect, Normal judgment. Signatures Electronically signed by : Roosevelt Carter MD; Oct 03 2021 8:57AM EST (Author) Normal [employer] Tobacco Screening.on 022 Adult depression screening assessment No [employer] [facility] Work Phone: Fall risk assessment a) No falls within the last year frooly [facility] Work Phone: Tobacco use status CPHS b) No [facility] [facility] Work Phone: Absolute lymphocyte counton 08-30-2021 Lymphocytes Auto (Unsp spec) [#/Vol] 0.74 10*3/uL 0.83-4.51 [facility] Work Phone: Basophil percentageon 2021 Basophils/100 WBC (Bld) 0.6 % 0-1 [facility] Work Phone: Bilirubin [Mass/Vol] 0.30 mg/dL 0.20-1.00 [facility] Work Phone: Comment on above: For patients on eltr ombopag therapy, use of Dimension [place] TBIL is not recommended. Chloride [Moles/Vol] 106 mmol/L 98-107 [facility] Work Phone: Eosinophils/100 WBC (Bld) 1.3 % 0-5 [facility] Work Phone: [phone] Glucose [Mass/Vol] 66 mg/dL 74-106 [facility] Work Phone: [phone] Neutrophils (Bld) [#/Vol] 1.9 10*3/uL 2.0-7.7 [facility] Work Phone: [phone] Neutrophils/100 WBC (Bld) 59.7 % 47-70 [facility] Work Phone: [phone] Potassium [Moles/Vol] 3.9 mmol/L 3.5-5.1 [facility] Work Phone: [phone] Comment on above: Slight Hemolysis, Re sult may be falsely increased. Protein [Mass/Vol] 6.9 g/dL 6.4-8.2 [facility] Work Phone: [phone] Sodium [Moles/Vol] 137 mmol/L 136-145 [facility] Work Phone: [phone] WBC (Bld) [#/Vol] 3.1 10*3/uL 4.4-11.0 [facility] Work Phone: [phone] Bilirubin Test strip Ql (U)o n 08-30-2021 Bilirubin Ql (U) Negative Negative [facility] Work Phone: [phone] Blood erythrocytes count (nu mber/volume)on 08-30-2021 RBC (Bld) [#/Vol] 4.02 10*6/uL 4.2-5.4 [facility] Work Phone: [phone] Blood hemoglobin measurement (mass/volume)on 08-30-2021 Hemoglobin (Bld) [Mass/Vol] 12.7 g/dL 12.0-15.0 [facility] Work Phone: Blood lymphocytes/100 leukoc yteson 08-30-2021 Lymphocytes/100 WBC (Bld) 23.7 % 19-41 [facility] Work Phone: [phone] Blood monocytes/100 leukocyt eson 08-30-2021 Monocytes/100 WBC (Bld) 14.4 % 0-10 [facility] Work Phone: Blood platelet mean volumeon 08-30-2021 Platelet mean volume (Bld) [Entitic vol] 10.8 fL 6.2-12.0 [facility] Work Phone: Determination of erythrocyte mean corpuscular volume (MCV)on 08-30-2021 MCV (RBC) [Entitic vol] 103.2 fL 81-99 [facility] Work Phone: Hematocrit Auto (Bld) [Volum e fraction]on 08-30-2021 Hematocrit (Bld) [Volume fraction] 41.5 % 37-47 [facility] Work Phone: Ketones Test strip Ql (U)on 08-30-2021 Ketones Ql (U) Negative Negative [facility] Work Phone: Laboratory - Chemistry and C hemistry - challengeon 08-30-2021 ALP [Catalytic activity/Vol] 48 U/L 45-117 [facility] Work Phone: ALT [Catalytic activity/Vol] 23 U/L 13-56 [facility] Work Phone: [phone] CO2 [Moles/Vol] 26.0 mmol/L 21.0-32.0 [facility] Work Phone: [phone] Globulin (S) [Mass/Vol] 3.5 g/dL 2.2-4.2 [facility] Work Phone: Urea nitrogen/Creatinine [Mass ratio] 16.5 mg/mg 10-20 [facility] Work Phone: Laboratory - Hematology and Cell countson 08-30-2021 Erythrocyte distribution width (RBC) [Entitic vol] 46.5 fL 35.1-43.9 [facility] Work Phone: Erythrocyte distribution width (RBC) [Ratio] 12.3 % 11.6-14.6 [facility] Work Phone: Immature granulocytes/100 WBC (Bld) 0.300 % 0.0-0.9 [facility] Work Phone: Comment on above: IG% - Immature Granu locytes (promyelocytes, myelocytes and metamyelocytes) > 1% indicates that a LEFT SHIFT is Present. MCH (RBC) [Entitic mass] 31.6 pg 27.0-32.0 [facility] Work Phone: Nucleated RBC/100 WBC (Bld) [Ratio] 0 % 0-5 [facility] Work Phone: [phone] MCHC Auto (RBC) [Mass/Vol]on 08-30-2021 MCHC (RBC) [Mass/Vol] 30.6 g/dL 32-36 [facility] Work Phone: [phone] Nitrite Test strip Ql (U)on 08-30-2021 Nitrite Ql (U) Negative Negative [facility] Work Phone: No Panel Informationon 08-30 Estimated GFR (MDRD) Amer 119 mL/min >60 [facility] Work Phone: Comment on above: GFR Calc Estimated GFR (MDRD) Non-Af Amer 98 mL/min >60 [facility] Work Phone: Comment on above: Non- GFR Calc Platelets bldon 08-30-2021 Platelets (Bld) [#/Vol] 177 10*3/uL 150-450 [facility] Work Phone: [phone] Protein Test strip Ql (U)on 08-30-2021 Protein Ql (U) Negative Negative [facility] Work Phone: [phone] Serum DNA double strand anti body assay (units/volume)on 08-30-2021 DNA double strand Ab Qn (S) 80 [IU]/mL 0-9 [facility] Work Phone: [phone] Comment on above: Negative <5 Equivoca l 5 - 9 Positive >9Performed at: [facility] [id number] Director: Pacheco Gramajo PhD, Phone: [phone] Serum or plasma albumin evelyn urement (mass/volume)on 08-30-2021 Albumin [Mass/Vol] 3.4 g/dL 3.2-5.0 [facility] Work Phone: Serum or plasma albumin/glob ulin mass ratioon 08-30-2021 Albumin/Globulin [Mass ratio] 1.0 {ratio} 0.9-2.4 [facility] Work Phone: Serum or plasma calcium evelyn urement (mass/volume)on 08-30-2021 Calcium [Mass/Vol] 8.7 mg/dL 8.5-10.1 [facility] Work Phone: Serum or plasma complement C 3 measurement (mass/volume)on 08-30-2021 Complement C3 [Mass/Vol] 86 mg/dL 82-167 [facility] Work Phone: Comment on above: Performed at: [place] [id number] Director: Pacheco Gramajo PhD, Phone: [phone] Serum or plasma complement C 4 measurement (mass/volume)on 08-30-2021 Complement C4 [Mass/Vol] 12 mg/dL 12-38 [facility] Work Phone: [phone] Serum or plasma creatinine m easurement (mass/volume)on 08-30-2021 Creatinine [Mass/Vol] 0.67 mg/dL 0.55-1.02 [facility] Work Phone: Comment on above: The validity of the calculated GFR & GFRAA in patients over 70 years has not been determined. Clinical correlation is essential. Serum or plasma urea nitroge n measurement (mass/volume)on 08-30-2021 Urea nitrogen [Mass/Vol] 11 mg/dL 7-18 [facility] Work Phone: [phone] Thin prep Papanicolaou smear with manual screeningon 08-30-2021 Thin prep Papanicolaou smear with manual screening 22 U/L 15-37 [facility] Work Phone: Comment on above: Slight Hemolysis, Re sult may be falsely increased. Thin prep Papanicolaou smear with manual screening 5 5-15 [facility] Work Phone: Urine blood detectionon - RBC Ql (U) Negative Negative [facility] Work Phone: Urine clarityon 08-30-2021 Clarity (U) Clear Clear [facility] Work Phone: Urine color determinationon 08-30-2021 Color (U) Yellow Yellow [facility] Work Phone: Urine creatinine measurement (mass/volume)on 08-30-2021 Creatinine (U) [Mass/Vol] 70.60 mg/dL NO RANGE EST. [facility] Work Phone: Urine glucose detectionon Glucose Ql (U) Normal mg/dl Normal [facility] Work Phone: Urine leukocyte esterase det ection by dipstickon 08-30-2021 Leukocyte esterase Test strip Ql (U) 25 /ul Negative [facility] Work Phone: Urine pHon 08-30-2021 pH (U) 7.0 [pH] 5.0 - 8.0 [facility] Work Phone: Urine protein measurement (m ass/volume)on 08-30-2021 Protein (U) [Mass/Vol] 18.8 mg/dL 0.0-11.8 [facility] Work Phone: Urine protein/creatinine mas s ratioon 08-30-2021 Protein/Creatinine (U) [Mass ratio] 266 mg/g CRE 0-200 [facility] Work Phone: Urine specific gravity measu rementon 08-30-2021 Specific gravity (U) [Rel density] 1.010 1.002-1.030 [facility] Work Phone: Urobilinogen Auto test strip Ql (U)on 08-30-2021 Urobilinogen Ql (U) Normal mg/dl Normal [facility] Work Phone: Basophil percentageon 2021 Chloride [Moles/Vol] 103 mmol/L 98-107 [facility] Work Phone: [phone] Glucose [Mass/Vol] 76 mg/dL 74-106 [facility] Work Phone: [phone] Potassium [Moles/Vol] 4.1 mmol/L 3.5-5.1 [facility] Work Phone: [phone] Sodium [Moles/Vol] 139 mmol/L 136-145 [facility] Work Phone: [phone] WBC (Bld) [#/Vol] 3.7 10*3/uL 4.4-11.0 [facility] Work Phone: [phone] Blood erythrocytes count (nu mber/volume)on 07-31-2021 RBC (Bld) [#/Vol] 4.08 10*6/uL 4.2-5.[address] [facility] [facility] Work Phone: [phone] Blood hemoglobin measurement (mass/volume)on 07-31-2021 Hemoglobin (Bld) [Mass/Vol] 13.0 g/dL 12.0-15.0 [facility] Work Phone: [phone] Blood platelet mean volumeon 07-31-2021 Platelet mean volume (Bld) [Entitic vol] 10.9 fL 6.2-12.0 [facility] Work Phone: [phone] Determination of erythrocyte mean corpuscular volume (MCV)on 07-31-2021 MCV (RBC) [Entitic vol] 100.0 fL 81-99 [facility] Work Phone: [phone] Hematocrit Auto (Bld) [Volum e fraction]on 07-31-2021 Hematocrit (Bld) [Volume fraction] 40.8 % 37-47 [facility] Work Phone: [phone] Laboratory - Chemistry and C hemistry - challengeon 07-31-2021 CO2 [Moles/Vol] 29.0 mmol/L 21.0-32.0 [facility] Work Phone: [phone] Urea nitrogen/Creatinine [Mass ratio] 22.0 mg/mg 10-20 [facility] Work Phone: [phone] Laboratory - Hematology and Cell countson 07-31-2021 Erythrocyte distribution width (RBC) [Entitic vol] 46.6 fL 35.1-43.9 [facility] Work Phone: Erythrocyte distribution width (RBC) [Ratio] 12.7 % 11.6-14.6 [facility] Work Phone: MCH (RBC) [Entitic mass] 31.9 pg 27.0-32.0 [facility] Work Phone: [phone] MCHC Auto (RBC) [Mass/Vol]on 07-31-2021 MCHC (RBC) [Mass/Vol] 31.9 g/dL 32-36 [facility] Work Phone: No Panel Informationon 07-31 Estimated GFR (MDRD) Amer 126 mL/min >60 [facility] Work Phone: Comment on above: GFR Calc Estimated GFR (MDRD) Non-Af Amer 104 mL/min >60 [facility] Work Phone: Comment on above: Non- GFR Calc Urine Microalbumin/Creatinine Ratio 72.1 mg/g CRE <30 [facility] Work Phone: Platelets bldon 07-31-2021 Platelets (Bld) [#/Vol] 187 10*3/uL 150-450 [facility] Work Phone: Serum DNA double strand anti body assay (units/volume)on 07-31-2021 DNA double strand Ab Qn (S) 80 [IU]/mL [facility] Work Phone: Comment on above: Negative <5 Equivoca l 5 - 9 Positive >9Performed at: - [facility] [id number] Director: Pacheco Gramajo PhD, Phone: [phone] Serum or plasma calcium evelyn urement (mass/volume)on 07-31-2021 Calcium [Mass/Vol] 9.3 mg/dL 8.5-10.1 [facility] Work Phone: [phone] Serum or plasma complement C 3 measurement (mass/volume)on 07-31-2021 Complement C3 [Mass/Vol] 80 mg/dL [facility] Work Phone: Comment on above: Performed at: [address] [id number] Director: Pacheco Gramajo PhD, Phone: [phone] Serum or plasma creatinine m easurement (mass/volume)on 07-31-2021 Creatinine [Mass/Vol] 0.64 mg/dL 0.55-1.02 [facility] Work Phone: Comment on above: The validity of the calculated GFR & GFRAA in patients over 70 years has not been determined. Clinical correlation is essential. Serum or plasma urea nitroge n measurement (mass/volume)on 07-31-2021 Urea nitrogen [Mass/Vol] 14 mg/dL 7-18 [facility] Work Phone: Thin prep Papanicolaou smear with manual screeningon 07-31-2021 Thin prep Papanicolaou smear with manual screening 7 5-15 [facility] Work Phone: [phone] Thin prep Papanicolaou smear with manual screening 74.3 mg/L NO RANGE EST. [facility] Work Phone: Urine creatinine measurement (mass/volume)on 07-31-2021 Creatinine (U) [Mass/Vol] 103.00 mg/dL NO RANGE EST. [facility] Work Phone: Absolute lymphocyte counton 06-03-2021 Lymphocytes Auto (Unsp spec) [#/Vol] 0.40 10*3/uL 0.83-4.51 [facility] Work Phone: Basophil percentageon 2021 Basophils/100 WBC (Bld) 0.3 % 0-1 [facility] Work Phone: [phone] Bilirubin [Mass/Vol] 0.20 mg/dL 0.20-1.00 [facility] Work Phone: [phone] Comment on above: For patients on eltr ombopag therapy, use of Dimension [place] TBIL is not recommended. Chloride [Moles/Vol] 101 mmol/L 98-107 [facility] Work Phone: Eosinophils/100 WBC (Bld) 0.6 % 0-5 [facility] Work Phone: Glucose [Mass/Vol] 97 mg/dL 74-106 [facility] Work Phone: Neutrophils (Bld) [#/Vol] 2.8 10*3/uL 2.0-7.7 [facility] Work Phone: Neutrophils/100 WBC (Bld) 79.4 % 47-70 [facility] Work Phone: Potassium [Moles/Vol] 3.9 mmol/L 3.5-5.1 [facility] Work Phone: Protein [Mass/Vol] 7.3 g/dL 6.4-8.2 [facility] Work Phone: Sodium [Moles/Vol] 135 mmol/L 136-145 [facility] Work Phone: WBC (Bld) [#/Vol] 3.5 10*3/uL 4.4-11.0 [facility] Work Phone: Bilirubin Test strip Ql (U)o n 06-03-2021 Bilirubin Ql (U) Negative Negative [facility] Work Phone: Blood erythrocytes count (nu mber/volume)on 06-03-2021 RBC (Bld) [#/Vol] 3.71 10*6/uL 4.2-5.4 [facility] Work Phone: Blood hemoglobin measurement (mass/volume)on 06-03-2021 Hemoglobin (Bld) [Mass/Vol] 12.1 g/dL 12.0-15.0 [facility] Work Phone: Blood lymphocytes/100 leukoc yteson 06-03-2021 Lymphocytes/100 WBC (Bld) 11.4 % 19-41 [facility] Work Phone: Blood manual differential co mment interpretation (narrative result)on 06-03-2021 Manual differential comment Samir (Bld) [Interp] SCANNED [facility] Work Phone: [phone] Comment on above: LYMPHOPENIA NOTED Blood monocytes/100 leukocyt eson 06-03-2021 Monocytes/100 WBC (Bld) 7.7 % 0-10 [facility] Work Phone: Blood platelet mean volumeon 06-03-2021 Platelet mean volume (Bld) [Entitic vol] 10.6 fL 6.2-12.0 [facility] Work Phone: [phone] Determination of erythrocyte mean corpuscular volume (MCV)on 06-03-2021 MCV (RBC) [Entitic vol] 100.5 fL 81-99 [facility] Work Phone: [phone] Hematocrit Auto (Bld) [Volum e fraction]on 06-03-2021 Hematocrit (Bld) [Volume fraction] 37.3 % 37-47 [facility] Work Phone: [phone] Ketones Test strip Ql (U)on 06-03-2021 Ketones Ql (U) Negative Negative [facility] Work Phone: [phone] Laboratory - Chemistry and C hemistry - challengeon 06-03-2021 ALP [Catalytic activity/Vol] 72 U/L 45-117 [facility] Work Phone: [phone] ALT [Catalytic activity/Vol] 20 U/L 13-56 [facility] Work Phone: [phone] CO2 [Moles/Vol] 29.0 mmol/L 21.0-32.0 [facility] Work Phone: [phone] Globulin (S) [Mass/Vol] 3.8 g/dL 2.2-4.2 [facility] Work Phone: [phone] Urea nitrogen/Creatinine [Mass ratio] 27.6 mg/mg 10-20 [facility] Work Phone: [phone] Laboratory - Hematology and Cell countson 06-03-2021 Erythrocyte distribution width (RBC) [Entitic vol] 48.9 fL 35.1-43.9 [facility] Work Phone: [phone] Erythrocyte distribution width (RBC) [Ratio] 13.2 % 11.6-14.6 [facility] Work Phone: [phone] Immature granulocytes/100 WBC (Bld) 0.600 % 0.0-0.9 [facility] Work Phone: [phone] Comment on above: IG% - Immature Granu locytes (promyelocytes, myelocytes and metamyelocytes) > 1% indicates that a LEFT SHIFT is Present. MCH (RBC) [Entitic mass] 32.6 pg 27.0-32.0 [facility] Work Phone: Nucleated RBC/100 WBC (Bld) [Ratio] 0 % 0-5 [facility] Work Phone: [phone] MCHC Auto (RBC) [Mass/Vol]on 06-03-2021 MCHC (RBC) [Mass/Vol] 32.4 g/dL 32-36 [facility] Work Phone: [phone] Nitrite Test strip Ql (U)on 06-03-2021 Nitrite Ql (U) Negative Negative [facility] Work Phone: No Panel Informationon 06-03 Estimated GFR (MDRD) Amer 131 mL/min >60 [facility] Work Phone: Comment on above: GFR Calc Estimated GFR (MDRD) Non-Af Amer 108 mL/min >60 [facility] Work Phone: Comment on above: Non- GFR Calc Platelets bldon 06-03-2021 Platelets (Bld) [#/Vol] 197 10*3/uL 150-450 [facility] Work Phone: Protein Test strip Ql (U)on 06-03-2021 Protein Ql (U) 15 mg/dl Negative [facility] Work Phone: [phone] Review by pathologiston 05-08 Pathologist review Samir (Unsp spec) [Interp] Reviewed [facility] Work Phone: Comment on above: Previous reported re sult: Melissa herman Edited by: MARIVN on 06/05/21:1426LeukopeniaMacrocytosisClinical correlation necessary.Sj Geiger M.D. 06/05/21 AMENDED REPORT 06/05/21 1426 PATH REV previously reported as: August batsheva Serum DNA double strand anti body assay (units/volume)on 06-03-2021 DNA double strand Ab Qn (S) 110 [IU]/mL [facility] Work Phone: Comment on above: Negative <5 Equivoca l 5 - 9 Positive >9Performed at: [facility] [address] [id number] Director: Pacheco Gramajo PhD, Phone: [phone] Serum or plasma albumin evelyn urement (mass/volume)on 06-03-2021 Albumin [Mass/Vol] 3.5 g/dL 3.2-5.0 [facility] Work Phone: Serum or plasma albumin/glob ulin mass ratioon 06-03-2021 Albumin/Globulin [Mass ratio] 0.9 {ratio} 0.9-2.4 [facility] Work Phone: Serum or plasma calcium evelyn urement (mass/volume)on 06-03-2021 Calcium [Mass/Vol] 8.8 mg/dL 8.5-10.1 [facility] Work Phone: Serum or plasma complement C 3 measurement (mass/volume)on 06-03-2021 Complement C3 [Mass/Vol] 83 mg/dL [facility] Work Phone: Comment on above: Performed at: [facility] [id number] [place], [place] [id number] Director: Pacheco Gramajo PhD, Phone: [phone] Serum or plasma complement C 4 measurement (mass/volume)on 06-03-2021 Complement C4 [Mass/Vol] 12 mg/dL [facility] Work Phone: Serum or plasma creatinine m easurement (mass/volume)on 06-03-2021 Creatinine [Mass/Vol] 0.62 mg/dL 0.55-1.02 [facility] Work Phone: Comment on above: The validity of the calculated GFR & GFRAA in patients over 70 years has not been determined. Clinical correlation is essential. Serum or plasma urea nitroge n measurement (mass/volume)on 06-03-2021 Urea nitrogen [Mass/Vol] 17 mg/dL 7-18 [facility] Work Phone: Thin prep Papanicolaou smear with manual screeningon 06-03-2021 Thin prep Papanicolaou smear with manual screening 18 U/L 15-37 [facility] Work Phone: Thin prep Papanicolaou smear with manual screening 5 5-15 [facility] Work Phone: Urine blood detectionon 05-08 RBC Ql (U) Negative Negative [facility] Work Phone: Urine clarityon 06-03-2021 Clarity (U) Clear Clear [facility] Work Phone: Urine color determinationon 06-03-2021 Color (U) Yellow Yellow [facility] Work Phone: Urine creatinine measurement (mass/volume)on 06-03-2021 Creatinine (U) [Mass/Vol] 24.00 mg/dL NO RANGE EST. [facility] Work Phone: Urine glucose detectionon Glucose Ql (U) Normal mg/dl Normal [facility] Work Phone: Urine leukocyte esterase det ection by dipstickon 06-03-2021 Leukocyte esterase Test strip Ql (U) Negative Negative [facility] Work Phone: [phone] Urine pHon 06-03-2021 pH (U) 6.5 [pH] [facility] Work Phone: Urine protein measurement (m ass/volume)on 06-03-2021 Protein (U) [Mass/Vol] 7.4 mg/dL 0.0-11.8 [facility] Work Phone: Urine protein/creatinine mas s ratioon 06-03-2021 Protein/Creatinine (U) [Mass ratio] 308 mg/g CRE 0-200 [facility] Work Phone: Urine specific gravity measu rementon 06-03-2021 Specific gravity (U) [Rel density] 1.010 [facility] Work Phone: Urobilinogen Auto test strip Ql (U)on 06-03-2021 Urobilinogen Ql (U) Normal mg/dl Normal [facility] Work Phone: DIGITAL MAMM SCREENING W/ TO Alatorre 09-05-2020 DIGITAL MAMM SCREENING W/ KASANDRA Patient Name: ANA HUERTA STUDY: Digital mammography screening with kasandra; 09/05/2020 11:19 am ACCESSION NUMBER(S): [id number] ORDERING CLINICIAN: ROOSEVELT CARTER INDICATION: Screening. COMPARISON: Comparison is made to prior digital mammograms dated 05/16/2019 FINDINGS: CC and MLO 2D digital mammograms and digital breast tomosynthesis images were obtained of the bilateral breasts. 3-D volume images were reconstructed in 4 views at an independent workstation as 1 mm slices through the breasts in both the CC and MLO projections. The breast tissue is heterogeneously dense, which may obscure small masses. No discrete mass or focal asymmetry is identified. No suspicious microcalcifications or foci of architectural distortion are seen. There has been no significant change. This study was interpreted with CAD. IMPRESSION: No mammographic evidence of malignancy. BI-RADS CATEGORY: Category: 1 - Negative. Recommendation: 1 Year Screening. Electronically signed by: SAJI TAO MD [facility] Mamm - Screening Mammogram w / Tomosynthesison 09-05-2020 MG Breast Screening Normal [facility] Work Phone: Tobacco Screening.on 021 Fall risk assessment a) No falls within the last year [facility] Work Phone: Tobacco Screening. b) No [facility] Work Phone: CT CHEST W CONTRASTon 2020 CT CHEST W CONTRAST Patient Name: ANA HUERTA STUDY: CT CHEST W CONTRAST; 07/12/2020 9:27 am INDICATION: nodule, SOB Other chest pain Shortness of breath Solitary pulmonary nodule. COMPARISON: 03/25/2020 ACCESSION NUMBER(S): [id number] ORDERING CLINICIAN: ROOSEVELT CARTER TECHNIQUE: CT of the chest was performed with IV contrast. 90 mL of Optiray was administered intravenously. Coronal and sagittal reformatted images were obtained. FINDINGS: SUPPORT DEVICES: None. CHEST WALL AND LOWER NECK: No supraclavicular or axillary lymphadenopathy by CT size criteria. MEDIASTINUM AND JOAQUIN: No lymphadenopathy by CT size criteria. VESSELS: The thoracic aorta and main pulmonary artery are normal in caliber. HEART: The heart size is normal. No pericardial effusion. LUNG, PLEURA, LARGE AIRWAYS: No pleural effusion or pneumothorax. Bilateral lower lobe subsegmental atelectasis. Subpleural right middle lobe 2-3 mm nodules (image 173 of 305), unchanged. UPPER ABDOMEN: Limited images through the upper abdomen are unremarkable. BONES: No aggressive osseous lesions. IMPRESSION: Stable right middle lobe 2-3 mm pulmonary nodules. Bilateral lower lobe subsegmental atelectasis. Electronically signed by: JACE BUSH MD Normal [facility] Echocardiogramon 06-12-2020 [place] [address] [phone], TRANSTHORACIC ECHOCARDIOGRAM REPORT Patient Name: ANA HUERTA Reading Physician: [id number] Bret Woody MD Study Date: 06/12/2020 Referring Physician: [id number] ROOSEVELT CARTER MRN/PID: [id number] PCP: Accession/Order#: [id number] Department Location: [facility] Echo Lab Date of : 1970 Fellow: Gender: F Nurse: Admit Date: Mandarin Chinese Teacher: Perez López [facility] Admission Status: Outpatient Additional Staff: Height: 160.02 cm CC Report to: Weight: 60.33 kg Study Type: Echocardiogram BSA: 1.63 m2 Blood Pressure: 114 /76 mmHg Diagnosis/ICD: R06.00-Dyspnea, unspecified Indication: Procedure/CPT: Echo Limited-[id number] Study Detail: The following Echo studies were performed: 2D, M-Mode, Doppler and color flow. PHYSICIAN INTERPRETATION: Left Ventricle: The left ventricular systolic function is normal, with an estimated ejection fraction of 60-65%. There are no regional wall motion abnormalities. The left ventricular cavity size is normal. Spectral Doppler shows a normal pattern of left ventricular diastolic filling. Left Atrium: The left atrium is normal in size. Right Ventricle: The right ventricle is normal in size. There is normal right ventricular global systolic function. Right Atrium: The right atrium is normal in size. Aortic Valve: The aortic valve is trileaflet. There is mild aortic valve regurgitation. The peak instantaneous gradient of the aortic valve is 9.6 mmHg. The mean gradient of the aortic valve is 5.0 mmHg. Mitral Valve: The mitral valve is normal in structure. There is no evidence of mitral valve regurgitation. Tricuspid Valve: The tricuspid valve is structurally normal. No evidence of tricuspid regurgitation. Pulmonic Valve: The pulmonic valve is structurally normal. There is no indication of pulmonic valve regurgitation. Pericardium: There is no pericardial effusion noted. Aorta: The aortic root is normal. Systemic Veins: The inferior vena cava appears to be of normal size. There is IVC inspiratory collapse greater than 50%. CONCLUSIONS: 1. The left ventricular systolic function is normal with a 60-65% estimated ejection fraction. 2. There is mild aortic valve regurgitation. QUANTITATIVE DATA SUMMARY: 2D MEASUREMENTS: Normal Ranges: Ao Root d: 2.80 cm (2.0-3.7cm) LAs: 3.60 cm (2.7-4.0cm) IVSd: 1.03 cm (0.6-1.1cm) LVPWd: 1.17 cm (0.6-1.1cm) LVIDd: 4.50 cm (3.9-5.9cm) LVIDs: 2.88 cm LV Mass Index: 107.6 g/m2 LV % FS 36.0 % LA VOLUME: Normal Ranges: LA Vol A4C: 28.2 ml (22+/-6mL/m2) LA Vol A2C: 27.4 ml LA Vol BP: 28.9 ml LA Vol Index A4C: 17.4ml/m2 LA Vol Index A2C: 16.9 ml/m2 LA Vol Index BP: 17.8 ml/m2 LA Area A4C: 13.7 cm2 LA Area A2C: 13.0 cm2 LA [place] A4C: 5.6 cm LA [place] A2C: 5.2 cm LA Volume Index: 16.5 ml/m2 LA Vol A4C: 26.9 ml LA Vol A2C: 26.5 ml M-MODE MEASUREMENTS: Normal Ranges: AoV Exc: 2.10 cm (1.5-2.5cm) AORTA MEASUREMENTS: Normal Ranges: AoV Exc: 2.10 cm (1.5-2.5cm) LV SYSTOLIC FUNCTION BY 2D PLANIMETRY (MOD): Normal Ranges: EF-A4C View: 65.4 % (>55%) EF-A2C View: 66.0 % EF-Biplane: 66.0 % LV DIASTOLIC FUNCTION: Normal Ranges: MV Peak E: 0.78 m/s (0.7-1.2 m/s) MV Peak A: 0.63 m/s (0.42-0.7 m/s) E/A Ratio: 1.24 (1.0-2.2) MV e' 0.11 m/s (>8.0) MV lateral e' 0.12 m/s MV medial e' 0.10 m/s E/e' Ratio: 6.92 (<8.0) MITRAL VALVE: Normal Ranges: MV Vmax: 0.98 m/s (<1.3m/s) MV peak P.9 mmHg (<5mmHg) MV mean P.0 mmHg (<48mmHg) MV DT: 345 msec (150-240msec) AORTIC VALVE: Normal Ranges: AoV Vmax: 1.55 m/s (<1.7m/s) AoV Peak P.6 mmHg (<20mmHg) AoV Mean P.0 mmHg (1.7-11.5mmHg) LVOT Max Carlos: 1.51 m/s (<1.1m/s) AoV VTI: 28.20 cm (18-25cm) LVOT VTI: 29.50 cm LVOT Diameter: 2.10 cm (1.8-2.4cm) AoV Area, VTI: 3.62 cm2 (2.5-5.5cm2) AoV Area,Vmax: 3.37 cm2 (2.5-4.5cm2) AoV Dimensionless Index: 1.05 RIGHT VENTRICLE: RV 1 3.29 cm RV 2 2.42 cm RV 3 6.96 cm TAPSE: 19.6 mm RV s' 0.13 m/s TRICUSPID VALVE/RVSP: Normal Ranges: Peak TR Velocity: 2.40 m/s RV Syst Pressure: 26.0 mmHg (< 30mmHg) IVC Diam: 1.12 cm PULMONIC VALVE: Normal Ranges: PV Accel Time: 67 msec (>120ms) PV Max Carlos: 1.0 m/s (0.6-0.9m/s) PV Max P.2 mmHg [id number] Bret Woody MD Electronically signed on 06/12/2020 at 10:26:18 AM Final Normal [facility] C1 ESTERASE INHIBITORon C1 ESTERASE INHIBITOR 38 mg/dL Normal 21-39 [facility] Comment on above: Performed By: #### C 1ESQ #### [facility] [address] [place], [place] [id number] Provider Note - ED v2on Provider Note - ED v2 Provider Note - ED v2: Chart Review: ED NOTES ED NOTES: CC=SWELLLING/IRRITATION TO THROAT HPI-this is a 50-year-old female who has a 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 Now complains of irritation to her throat similar to when she had this symptoms begin in the past she was swallowing. Denies a sore throat denies any difficulty with her breathing she has had no fever chills. She only has had apple to eat today and no the other medications. Cording to her primary care physician however she is in the process of being worked up for lupus and is felt that this could be related to lupus. She denies any chest pains no palpitations no fever chills otherwise. SH-social alcohol consumption negative or smoking or drug usage PM HX-for carpal tunnel surgery chest pain angioedema and is being worked up for lupus FH-noncontributory HISTORY OF PRESENTING ILLNESS ANA is a 50 year old Female and was seen by me at 09-May-2020 19:39 for a chief complaint of allergic reaction (Patient to ED via wheelchair with c/o allergic reaction/tongue swelling since 1529 today. Reports I ate an apple and then my tongue began to feel itchy c/o throat hurts and feels swollen. Denies rash. Patient reports history of similar symptoms in February 2020 requiring intubation. Patient took Benadryl 50 mg by mouth approximately 1700 tonight. Denies new medications, food or products.)(1). Triage Information: Most recent Vital Sign Value Date Temp (F): 97.5 05-09-2020 19:38 Temp (C): 36.3 05-09-2020 19:38 Heart Rate (beats/min): 81 05-09-2020 19:38 Respirations (breaths/min): 20 05-09-2020 19:38 SpO2 (%): 97 05-09-2020 19:38 BP Systolic (mm Hg): 145 05-09-2020 19:38 BP Diastolic (mm Hg): 82 05-09-2020 19:38 PAST MEDICAL HISTORY ATTESTATION: I have reviewed and confirmed nurse's/medic's notes for patient's medications, allergies, and medical, surgical, family and social history ALLERGIES/INTOLERANCES: Allergy Allergen: Amoxil Type: Drug Reaction: Unknown Rash Allergen: lidocaine Type: Drug Reaction: Anaphylaxis Intolerance Allergen: Zithromax Type: Drug Reaction: GI Upset HEALTH HISTORY: No documented data. OUTPATIENT MEDICATIONS: Home Medications Review Status for Reconciliation: Complete Med Status: Patient Currently Takes Medications Drug Name: Plaquenil 200 mg oral tablet Instructions: 1 tab(s) orally 2 times a day Drug Name: predniSONE 20 mg oral tablet Instructions: 1 tab(s) orally once a day Drug Name: Benadryl 25 mg oral tablet Instructions: 2 tab(s) orally , As Needed SIGNIFICANT EVENTS: Past Medical History 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(1) Is : no(1) REVIEW OF SYSTEMS CONSTITUTIONAL: POSITIVE for: malaise Negative for: chills and fever EYES: Negative for: redness ENMT Ears: Negative for: pain Nose: Negative for: congestion and discharge Throat/Neck: POSITIVE for: dysphagia Negative for: throat lesions, throat pain, neck pain, neck stiffness and swollen glands CARDIOVASCULAR: Negative for: diaphoresis RESPIRATORY: Negative for: cough, dyspnea and wheezing GASTROINTESTINAL: Negative for: abdominal pain and nausea; GENITOURINARY: Negative for: dysuria, frequency and hematuria; MUSCULOSKELETAL: Negative for: neck pain and stiffness INTEGUMENTARY: Negative for: petechiae and rash NEUROLOGICAL: Negative for: dizziness, loss of consciousness and loss of function; HEME/LYMPH: Negative for: anemia, easy bleeding and easy bruising All other systems reviewed and are negative PHYSICAL EXAM CONSTITUTIONAL: Well appearing, well nourished, awake, alert, oriented to person, place, time/situation and in no apparent distress. HENMT: Airway patent, ears with clear tympanic membranes bilaterally. Nasal mucosa clear. . Throat has no vesicles, no oropharyngeal exudates and uvula is midline. Face with no lymph node enlargement. Posterior pharynx shows no edema there is no swelling of the tongue there is no masses there is no abscesses there is no drooling or stridor. Neck shows some minimal anterior edema but no erythema and no tenderness at this time EYES: Clear bilaterally, pupils equal, round and reactive to light. CARDIOVASCULAR: Normal rate, regular rhythm. Heart sounds S1, S2. No murmurs, rubs or gallops. PMI non-displaced. RESPIRATORY: Breath sounds clear and equal bilaterally. There is no wheezing no dyspnea or tachypnea GASTROINTESTINAL: Abdomen soft, non-distended, no rebound, no guarding. Bowel sounds normal in all 4 quadrants. MUSCULOSKELETAL: Spine appears normal, range of motion is not limited, no muscle or joint tenderness. NEUROLOGICAL: Alert a (more content not included)... Normal [facility] Risk Screen - Adult Emergenc yon 05-09-2020 Risk Screen - Adult Emergency Preferred Language: Preferred Language: Preferred Language for Discussing Health Care (patient/designee)Maris greene Advanced Directives: Advance Directive/DNRno Family Violence Adult: Abuse Screen: Are you or have you been threatened or abused physically, emotionally, or sexually by anyoneno Learning Assessment (Patient): Learning Assessment (Patient): Patient is Able to be Assessed for Learningyes Factors Influencing Readiness to Learnnone Factors that Impact Ability to Learnvisual problems Devices/Methods Used to Communicateglasses Learning Preferencesverbal instruction; written material Cultural Considerationsnone Developmental Considerationsnone Pentecostalism Considerationsnone Learning Assessment (Other Learner): Learning Assessment (Other Learner): Other learner availableno Pressure Injury/TB/Substance: Pressure Injury: Do you have a coughno Substance Use Current or Former Historynever: Cigarette/Tobacco, Alcohol, Street Drugs Admission Risk Screen: Significant IndicatorsComplete CAGE: CAGE: Is this an injured patient at a Trauma Center ([facility]/[place]/Ayanna mcclain/[place]): no Electronic Signatures: Lulu Torres (RN) (Signed 09-May-2020 19:45) Authored: Preferred Language, Advanced Directives, Family Violence Adult, Learning Assessment (Patient), Learning Assessment (Other Learner), Pressure Injury/TB/Substance, Pressure Injury, CAGE Last Updated: 09-May-2020 19:45 by Lulu Torres (CARLOS) [facility] Triage - EDon 05-09-2020 Triage - ED Quick Triage: Are You no Have You Given In The Last 6 Weeksno Are You Currently Breastfeedingno The patient and/or guardian verbally acknowledges placement for services into the following (when Urgent Care Service hours are operating):emergency department Chart Review: PRIMARY ASSESSMENT ABCD Normal Findings: airway open and patent, breathing normal, circulation normal and alert and oriented ARRIVAL INFORMATION Means of Arrival: wheelchair Mode of Arrival: private vehicle Arrival From: home Accompanied By: self Language: Spoken Language Preferred: Bermudian Reading Language Preferred: B[place]udian Python Web Developer Requested: no clarifier was requested MDRO: History of MDRO: no Present on Arrival: Device Present on Arrival to ED: no CHIEF COMPLAINT ANA HUERTA is a Female patient with a chief complaint of allergic reaction (Patient to ED via wheelchair with c/o allergic reaction/tongue swelling since 1529 today. Reports I ate an apple and then my tongue began to feel itchy c/o throat hurts and feels swollen. Denies rash. Patient reports history of similar symptoms in February 2020 requiring intubation. Patient took Benadryl 50 mg by mouth approximately 1700 tonight. Denies new medications, food or products.). Triage Date/Time: 09-May-2020 19:38 Pain Rating (0-10): 4 = Moderate Pain location: throat Vital Signs: Temperature: 97.5F ( 36.3C) taken oral Blood Pressure: 145/82 Mean: Heart Rate: 81 Respiratory Rate: 20 Pulse Oximetry: 97% on room air, no respiratory support. Height: 5 feet 3 inches. 160.0 CM Weight: 131.1 pounds. Calculated 59.5 kg. (stated) Calculated BMI (kg/m2): 23.242 Calculated BSA (m2) 1.63 [place] Coma Scale: Best Eye Response: (E4) spontaneous Best Motor Response: (M6) obeys commands Best Verbal Response: (V5) oriented Daniela Score: 15 Cough lasting greater than 3 weeks: no Mask applied: yes PHYTOPATHOLOGY TEACHER History: menopause Patient has homicidal thoughts: no NICHOL: 2 Symptom Notes: . Symptoms Are POSITIVE For: itching (tongue itching). Symptoms Are Negative For: chills, diarrhea, lip swelling, nausea and rash. Risk Screens Suicide Risk Screen In the Past Month: Have you wished you were or wished you could go to sleep and not wake up no In the Past Month: Have you had any actual thoughts of killing yourself no In Your Lifetime: Have you ever done anything, started to do anything, or prepared to do anything to end your life no Barajas Fall Scale Screening Has the patient fallen before (or is the patient in the ED as a result of a fall) has not had a fall Does the patient have an impaired gait does not have impaired gait Is the patient cognitively impaired not cognitively impaired Interventions: Barajas Fall Interventions: LOW INTERVENTIONS: *patient oriented to surroundings and call system, * patient/family falls education completed and documented, *patients fall status communicated during bedside handoff, *whiteboard updated, *mode of toileting discussed with patient, *bed in low position with brakes locked, *call light in reach, * non-skid footwear TRAVEL HISTORY Travel History Coronavirus Screening: no exposure or symptoms Travel Exposure History: NO travel to International locations in the past 30 days PAIN Pain Scale Used: TYRON Pain Rating (0-10): 4 = Moderate Past Medical History: Past Medical History Reviewedyes Electronic Signatures: Lulu Torres (CARLOS) (Signed 09-May-2020 21:43) Authored: Quick Triage, Risk Screens, Pain, Arrival, ABCD, Travel History, Chart Review, Scores, Past Medical History Last Updated: 09-May-2020 21:43 by Lulu Torres) [facility] Coag (Bld) [Time] 22 s Low 25 - 35 [facility] Comment on above: Result Comment: THE APTT IS NO LONGER USED FOR MONITORING UNFRACTIONATED HEPARIN THERAPY. FOR MONITORING HEPARIN THERAPY, USE THE HEPARIN ASSAY. Performed By: #### C 1ESQ #### [facility] [address] [place], [place] [id number] BASIC METABOLIC PANELon 12-2 Anion gap [Moles/Vol] 10 mmol/L Normal 10 - 20 [facility] Comment on above: Performed By: #### B MP ####[address] [address] Calcium [Mass/Vol] 8.7 mg/dL Normal 8.6 - 10.3 [facility] Comment on above: Performed By: #### B MP ####[address] [address] Chloride [Moles/Vol] 104 mmol/L Normal 98 - 107 [facility] Comment on above: Performed By: #### B MP ####[address] [address] Creatinine [Mass/Vol] 0.68 mg/dL Normal 0.50 - 1.05 [facility] Comment on above: Performed By: #### B MP ####[address] [address] GFR- AM. >60 Normal >60 [facility] Comment on above: Result Comment: CALC ULATIONS OF ESTIMATED GFR ARE PERFORMED USING THE MDRD STUDY EQUATION FOR THE IDMS-TRACEABLE CREATININE METHODS. CLIN CHEM 2007;53:766-72 Performed By: #### B MP ####[address] [address] GFR-NON AM. >60 Normal >60 [facility] Comment on above: Performed By: #### B MP ####[address] [address] Glucose [Mass/Vol] 121 mg/dL High 74 - 99 [facility] Comment on above: Performed By: #### B MP ####[address] [address] HCO3 (Bld) [Moles/Vol] 23 mmol/L Normal 21 - 32 [facility] Comment on above: Performed By: #### B MP ####[address] [address] Potassium [Moles/Vol] 3.7 mmol/L Normal 3.5 - 5.3 [facility] Comment on above: Performed By: #### B MP ####[address] [address] Sodium [Moles/Vol] 133 mmol/L Low 136 - 145 [facility] Comment on above: Performed By: #### B MP ####[address] [address] Urea nitrogen [Mass/Vol] 18 mg/dL Normal 6 - 23 [facility] Comment on above: Performed By: #### B MP ####[address] [address] BNPon 04-01-2020 Natriuretic peptide B (Bld) [Mass/Vol] 84 pg/mL Normal 0 - 99 [facility] Comment on above: Result Comment: . <1 00 pg/mL - Heart failure unlikely 100-299 pg/mL - Intermediate probability of acute heart . failure exacerbation. Correlate with clinical . context and patient history. >=300 pg/mL - Heart Failure likely. Correlate with clinical . context and patient history. BNP testing is performed using different testing methodology at [facility] than at other [facility]. Direct result comparisons should only be made within the same method. Performed By: #### B NP2 ####[address] [address] CBC AND DIFFERENTIALon 04-01 DIFFERENTIAL SEE MANUAL DIFF Normal [facility] Comment on above: Performed By: #### C BCDF #### [address] [address] Erythrocyte distribution width (RBC) [Ratio] 13.9 % Normal 11.5 - 14.5 [facility] Comment on above: Performed By: #### C BCDF #### [address] [address] Hematocrit (Bld) [Volume fraction] 35.6 % Low 36.0 - 46.0 [facility] Comment on above: Performed By: #### C BCDF #### [address] [address] Hemoglobin (Bld) [Mass/Vol] 11.8 g/dL Low 12.0 - 16.0 [facility] Comment on above: Performed By: #### C BCDF #### [address] [address] MCHC (RBC) [Mass/Vol] 33.2 g/dL Normal 32.0 - 36.0 [facility] Comment on above: Performed By: #### C BCDF #### [address] [address] MCV (RBC) [Entitic vol] 98 fL Normal 80 - 100 [facility] Comment on above: Performed By: #### C BCDF #### [address] [address] NUCLEATED RBC 0.1 /100 WBC Normal [facility] Comment on above: Performed By: #### C BCDF #### [address] [address] Platelets (Bld) [#/Vol] 336 10*3/uL Normal 150 - 450 [facility] Comment on above: Performed By: #### C BCDF #### [address] [address] RBC 3.64 x10E12/L Low 4.00 - 5.20 [facility] Comment on above: Performed By: #### C BCDF #### [address] [address] WBC (Bld) [#/Vol] 9.0 10*3/uL Normal 4.4 - 11.3 [facility] Comment on above: Performed By: #### C BCDF #### [address] [address] CHEST 1 VIEWon 04-01-2020 CHEST 1 VIEW Patient Name: ANA HUERTA STUDY: CHEST 1 VIEW; 04/01/2020 11:52 am INDICATION: Chest Pain. COMPARISON: 03/25/2020 ACCESSION NUMBER(S): [id number] ORDERING CLINICIAN: KRISHNA IVAN FINDINGS: AP radiograph of the chest was provided. CARDIOMEDIASTINAL SILHOUETTE: Persistent enlargement of the cardiomediastinal silhouette. LUNGS: Left basilar opacity persists representing a small to moderate left pleural effusion with adjacent atelectasis. Superimposed consolidation is not excluded. There is no sizable pneumothorax. IMPRESSION: 1. Persistent left basilar opacity representing a small to moderate pleural effusion with adjacent atelectasis, a superimposed consolidation can not be excluded. 2. Persistent enlargement of the cardiac silhouette. Electronically signed by: BERNIE DANIELSON MD Normal [facility] CORONAVIRUS 2019 BY PCRon SARS-CoV-2 (COVID-19) RNA JOSÉ+probe Ql (Unsp spec) Not detected Normal Not Detected [facility] Comment on above: Result Comment: . This assay is designed to detect the N2 and E genes of SARS-CoV-2 via nucleic acid amplification. A Not Detected result does not preclude COVID-19 infection since the adequacy of sample collection and/or low viral burden may result in presence of viral nucleic acids below the clinical sensitivity of this test method. Fact sheet for providers: www.fda.gov/media/379191/download Fact sheet for patients: www.fda.gov/media/589148/download This test has received FDA Emergency Use Authorization (EUA) and has been verified by [facility]. This test is only authorized for the duration of time that circumstances exist to justify the authorization of the emergency use of in vitro diagnostic tests for the detection of SARS-CoV-2 virus and/or diagnosis of COVID-19 infection under section 564(b)(1) of the Act, 21 U.S.C. 360bbb-3(b)(1), unless the authorization is terminated or revoked sooner. [facility] is certified under CLIA-88 as qualified to perform high complexity testing. Testing is performed in the [facility] laboratory located at [address] [place] [address]. Performed By: #### C OV19 #### [address] [address] Lab Specimen Source Nasal, Nasopharyngeal [facility] Comment on above: Performed By: #### C OV19 #### [address] [address] DATE OF SYMPTOM ONSET [[id number]]? [id number] [facility] Comment on above: Performed By: #### C OV19 #### [address] [address] Covid 19 Resultson 0 SARS-CoV-2 (COVID-19) RNA JOSÉ+probe Ql (Unsp spec) NEGATIVE COVID-19 Test Coronaviruses are common world-wide and are the cause of many common colds. SARS-COV2 is a new coronavirus that began circulating worldwide in 2019 so we are calling it COVID-19. It has been estimated that four out of five patients with COVID-19 will recover at home without the need for medical attention. Symptoms of COVID-19 include cough, fever, shortness of breath, loss of taste or smell and other flu-like symptoms including chills, sore muscles, sore throat, and headache. Severe illness is more common in older people and people with other health problems such as high blood pressure, obesity, and immune system problems. If the test is positive, you have COVID-19. You will be contacted by the ordering physicians office and instructed to remain on home isolation, in accordance with CDC guidelines. You may also be contacted by the [facility] to see if any of your close contacts may have been exposed to the virus and need to quarantine. If the test is negative, you likely do not have COVID-19 at this time, but you still may have a different illness that can spread to other people (like Influenza, or the Flu) and could still be at risk for getting COVID-19. We recommend that you stay away from other people to limit the spread of illness until your symptoms are improving and you are fever-free for 24 hours without the use of fever lowering medications such as acetaminophen or ibuprofen. No test is 100% accurate so if you are still concerned you may have COVID-19, talk to your doctor about the need to continue to stay away from others. Medicines Acetaminophen (Tylenol and others) is generally safe. Anti-inflammatory medications, such as Ibuprofen (Advil or Motrin) or Naproxen (Aleve) can also be used. Ntcd-lvy-xaavvur cough and cold medicines can be used according to the instructions on the package. Some dmlv-kgv-jgksljv medicines also contain acetaminophen. Make sure you are not taking more than your recommended dose For those not hospitalized, there is no specific treatment available for this illness. Antibiotics do not treat Coronaviruses. Follow-Up Follow up with your doctor by scheduling a virtual visit or consider follow-up at one of our urgent care fever clinics. If you are having difficulty breathing, or are very weak and having difficulty standing, this is a medical emergency. Call 911 or have someone take you to the nearest emergency room immediately. If possible, wear a facemask. Additional guidance from the CDC for patients who tested POSITIVE for COVID-19 How to isolate: Isolate yourself in a specific room at home and limit your contact with others. Use a separate bathroom from other members of the household, when possible. Leave home only to get essential medical care. Do not go to work, school or public areas. Avoid using public transportation, ride-sharing, or taxis. Restrict contact with pets and other animals. If you must care for your pet or be around animals while you are sick, wash your hands before and after your interaction and wear a facemask. Make sure that shared spaces in the home have good airflow, such as by an air conditioner or an opened window, weather permitting. Personal Hygiene Procedures: Wear a face mask when in the same room as other people or pets. If a face mask interferes with your breathing, others should wear a mask when sharing space with you. Frequent hand-washing: wash your hands with soap and water for at least 20 seconds. If soap and water are not available, use alcohol-based hand and taxi instructor bus trolley. Avoid touching your eyes, nose, and mouth with unwashed hands. Household Hygiene Procedures: Avoid sharing personal household items such as dishes, glassware, cups, eating utensils, towels or bedding with other people or pets in your home. After use, these items should be washed with soap and hot water. Disinfect all high-touch surfaces every day with antibacterial cleaning solutions such as Lysol wipes, bleach, cleansers, etc. High-touch surfaces include tabletops, doorknobs, bathroom fixtures, toilets, phones, keyboards, tablets and bedside tables. Immediately clean any surfaces that may have blood, poop or body fluids on them, using antibacterial cleaning solutions such as Lysol wipes, bleach, cleansers, etc. If clothing or bedding come into contact with blood, poop or body fluids, they should be washed immediately. Follow the directions on the laundry detergent and clothing labels but hot water is recommended when possible. Stopping home isolation precautions: If possible, consult your doctor before stopping home isolation precautions. According to the CDC, you can discontinue home isolation precautions when you have met both of these criteria: Your fever and respiratory symptoms have been gone for 24 hours without the use of any medicines like ibuprofen (Motrin) (more content not included)... Normal [facility] MAGNESIUMon 04-01-2020 Magnesium [Mass/Vol] 1.93 mg/dL Normal 1.60 - 2.40 [facility] Comment on above: Performed By: #### M G ####[place] [address] MANUAL DIFFERENTIALon 2019 % BASOPHIL 0.0 % Normal 0.0 - 2.0 [facility] Comment on above: Performed By: #### C 1ESQ #### [facility] [address] [place], [place] [id number] % EOSINOPHIL 0.0 % Normal 0.0 - 6.0 [facility] Comment on above: Performed By: #### C 1ESQ #### [facility] [address] [place], [place] [id number] % LYMPHOCYTE 10.0 % Normal 13.0 - 44.0 [facility] Comment on above: Performed By: #### C 1ESQ #### [facility] [address] [place], [place] [id number] % MONOCYTE 7.0 % Normal 2.0 - 10.0 [facility] Comment on above: Performed By: #### C 1ESQ #### [facility] [address] [place], [place] [id number] % SEG NEUTROPHIL 83.0 % Normal 40.0 - 80.0 [facility] Comment on above: Result Comment: Perc ent differential counts (%) should be interpreted in the context of the absolute cell counts (cells/L). Performed By: #### C 1ESQ #### [facility] [address] [place], [place] [id number] ANC 7.47 x10E9/L Normal 1.20 - 7.70 [facility] Comment on above: Performed By: #### C 1ESQ #### [facility] [address] [place], [place] [id number] BASOPHIL 0.00 x10E9/L Normal 0.00 - 0.10 [facility] Comment on above: Performed By: #### C 1ESQ #### [facility] [address] [place], [place] [id number] EOSINOPHIL 0.00 x10E9/L Normal 0.00 - 0.70 [facility] Comment on above: Performed By: #### C 1ESQ #### [facility] [address] [place], [place] [id number] LYMPHOCYTE 0.90 x10E9/L Low 1.20 - 4.80 [facility] Comment on above: Performed By: #### C 1ESQ #### [facility] [address] [place], [place] [id number] MONOCYTE 0.63 x10E9/L Normal 0.10 - 1.00 [facility] Comment on above: Performed By: #### C 1ESQ #### [facility] [address] [place], [place] [id number] SEG NEUTROPHIL 7.47 x10E9/L High 1.20 - 7.00 [facility] Comment on above: Performed By: #### C 1ESQ #### [facility] [address] [place], [place] [id number] PT/INRon 12-27-2020 PT Coag (PPP) [Time] 13.0 s Normal 10.1 - 13.3 [facility] Comment on above: Performed By: #### C 1ESQ #### [facility] [address] [place], [place] [id number] PT, INR 1.1 Normal 0.9 - 1.1 [facility] Comment on above: Performed By: #### C 1ESQ #### [facility] [address] [place], [place] [id number] Provider Note - ED v2on 03-07 Provider Note - ED v2 Provider Note - ED v2: Chart Review: ED NOTES ED NOTES: ====HPI==== Patient is a 50-year-old female who presents to the emergency department with a chief complaint of chest pain. She was seen here approximately 1 week ago for similar symptoms. She was diagnosed with pneumonia and pleurisy and placed on Levaquin. She states that she shortly after saw her family physician who placed her on prednisone. She states that her chest pain had improved and 2 days ago it returned and continues to increase. She rates her pain as 6 out of 10. Her pain is worse with breathing coughing and moving. She does report that she did have a CAT scan of her chest approximately 1 week ago. He denies smoking, hypertension, hypercholesterolemia, diabetes, or any family history of early heart disease. She denies any history of blood clots. Character: Severity: moderate Exacerbated by: movement, breathing Improved by: nothing Social HX: No TOBACCO No ETOH No DRUGS ====Review of Systems==== 10 point system review is negative except for those specifically mentioned in history of present illness ====Physical Exam==== Constitutional/General: Alert and oriented x3, well appearing, nontoxic, and in NAD. Head: Normocephalic and atraumatic. Eyes: EOMI, conjunctive normal, sclera nonicteric, subconjunctival layer is pink. Neck: Supple, full ROM, no meningeal signs. Trachea at midline. Respiratory: Lungs clear to auscultation bilaterally, no wheezes, rales, or rhonchi, not in respiratory distress. Cardiovascular: Regular rate, regular rhythm, no murmurs, gallops, or rubs, 2+ distal pulses. Chest: normal chest wall movement GI: Abdomen soft, nontender, Musculoskeletal: Moves all extremities x4, warm and well perfused, no clubbing, cyanosis, or edema, cap refill <3 seconds Integument: Skin warm and dry, no rashes. Lymphatic: No lymphadenopathy noted. Neurologic: No focal deficits Psychiatric: Normal affect. ====ED Course and Medical Decision Making==== See MDM section for review of findings & plan of care. Portions of this note were dictated by speech recognition. An attempt at proof reading was made to minimize errors. Minor errors in transfer table operator helper may be present. Please call if questions.. HISTORY OF PRESENTING ILLNESS ANA is a 50 year old Female and was seen by me at 01-Apr-2020 11:23 for a chief complaint of chest pain (Patient states she was seen here Thursday and dx with pleurisy and pneumonia, was put on prednisone and levaquin, complains of increasing chest pain, rates pain 6/10 at this time.)(1). Triage Information: Most recent Vital Sign Value Date Temp (F): 97.9 04-01-2020 11:27 Temp (C): 36.6 04-01-2020 11:27 Heart Rate (beats/min): 101 04-01-2020 11:27 Respirations (breaths/min): 18 04-01-2020 11:27 SpO2 (%): 98 04-01-2020 11:27 BP Systolic (mm Hg): 104 04-01-2020 11:27 BP Diastolic (mm Hg): 74 04-01-2020 11:27 PAST MEDICAL HISTORY ATTESTATION: I have reviewed and confirmed nurse's/medic's notes for patient's medications, allergies, and medical, surgical, family and social history ALLERGIES/INTOLERANCES: Allergy Allergen: Amoxil Type: Drug Reaction: Unknown Rash Allergen: lidocaine Type: Drug Reaction: Anaphylaxis Intolerance Allergen: Zithromax Type: Drug Reaction: GI Upset HEALTH HISTORY: No documented data. OUTPATIENT MEDICATIONS: Home Medications Review Status for Reconciliation: Not Done Med Status: Patient Currently Takes Medications Drug Name: Percocet 5 mg-325 mg oral tablet Instructions: 1 tab(s) orally every 6 hours, As Needed -for pain Drug Name: levoFLOXacin 750 mg oral tablet Instructions: 1 tab(s) orally every 24 hours Drug Name: Ultram 50 mg oral tablet Instructions: 1 tab(s) orally every 6 hours, As Needed -for pain Drug Name: IBU 600 mg oral tablet Instructions: 1 tab(s) orally every 6 hours, As Needed -for pain Drug Name: Albuterol (Eqv-ProAir HFA) 90 mcg/inh inhalation aerosol Instructions: 2 puff(s) inhaled every 6 hours SIGNIFICANT EVENTS: Past Medical History 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(1) Is : no(1) RESULTS/VITAL SIGNS RESULTS: Recent Lab Results: I have reviewed these laboratory results: Complete Blood Count + Differential 01-Apr-2020 12:05:00 ResultValue White Blood Cell Count 9.0 Nucleated Erythrocyte Count 0.1 Red Blood Cell Count 3.64 L HGB 11.8 L HCT 35.6 L MCV 98 MCHC 33.2 PLT 336 RDW-CV 13.9 Differential Comment SEE MANUAL DIFF Basic Metabolic Panel 01-Apr-2020 12:05:00 ResultValue Glucose, Serum 121 H NA 133 L K 3.7 CL 104 Bicarbonate, Serum 23 Anion Gap, Serum 10 BUN 18 CREAT 0.68 GFR-Non >60 GFR- >60 Calcium, Serum 8.7 PT + INR, Plasma 01-Apr-2020 12:05:00 ResultValue Prothrombin Time, Gen (more content not included)... Normal [facility] RED CELL MORPHOLOGYon 2019 RBC morphology finding Nom (Bld) NORMAL Normal [facility] Comment on above: Performed By: #### C 1ESQ #### [facility] [address] [place], [place] [id number] Risk Screen - Adult Emergenc yon 04-01-2020 Risk Screen - Adult Emergency Preferred Language: Preferred Language: Preferred Language for Discussing Health Care (patient/designee)Maris greene Advanced Directives: Advance Directive/DNRno Advance Directive Information Givenpatient/family declined Family Violence Adult: Abuse Screen: Are you or have you been threatened or abused physically, emotionally, or sexually by anyoneno Learning Assessment (Patient): Learning Assessment (Patient): Patient is Able to be Assessed for Learningyes Factors Influencing Readiness to Learninterest in learning Factors that Impact Ability to Learnnone Devices/Methods Used to Communicatenone Learning Preferencesverbal instruction Cultural Considerationsnone Developmental Considerationsnone Pentecostalism Considerationsnone Learning Assessment (Other Learner): Learning Assessment (Other Learner): Other learner availableno Pressure Injury/TB/Substance: Pressure Injury: Pressure Injury Present on Admissionno Do you have a coughyes... Has your cough lasted longer than 2 weeksno Substance Use Current or Former Historynever: Cigarette/Tobacco, e-Cigarette/Vaping, Alcohol, Street Drugs Admission Risk Screen: Significant IndicatorsComplete CAGE: CAGE: Is this an injured patient at a Trauma Center ([facility]/[place]): no Electronic Signatures: Debra Barger (CARLOS) (Signed 01-Apr-2020 11:30) Authored: Preferred Language, Advanced Directives, Family Violence Adult, Learning Assessment (Patient), Learning Assessment (Other Learner), Pressure Injury/TB/Substance, Pressure Injury, CAGE Last Updated: 01-Apr-2020 11:30 by Debra Barger (CARLOS) Normal [facility] TROPONIN Ion 04-01-2020 Troponin I.cardiac [Mass/Vol] ng/mL Normal 0.00 - 0.03 [facility] Comment on above: Result Comment: LESS THAN 0.04 NG/ML: NEGATIVE REPEAT TESTING IN THREE TO SIX HOURS IF CLINICALLY INDICATED. 0.04 - 0.5 NG/ML: CONSISTENT WITH POSSIBLE CARDIAC DAMAGE AND POSSIBLE INCREASED CLINICAL RISK. SERIAL MEASUREMENTS MAY HELP ASSESS EXTENT OF MYOCARDIAL DAMAGE. >0.5 NG/ML: CONSISTENT WITH CARDIAC DAMAGE, INCREASED CLINICAL RISK AND MYOCARDIAL INFARCTION. SERIAL MEASUREMENTS MAY HELP ASSESS EXTENT OF MYOCARDIAL DAMAGE. . Note: Troponin I testing is performed using different testing methodology at [facility] than at other [facility]. Direct result comparisons should only be made within the same method. Performed By: #### T ROP2 #### [address] [address] Triage - EDon 04-01-2020 Triage - ED Quick Triage: Are You no Have You Given In The Last 6 Weeksno Are You Currently Breastfeedingno Chart Review: PRIMARY ASSESSMENT ANA HUERTA's primary assessment is Within Defined Limits. The airway is open and patent. Breathing spontaneous and unlabored with clear breath sounds bilaterally. Circulation is normal with good peripheral pulses. Skin is warm and dry and color is normal for race. ARRIVAL INFORMATION Means of Arrival: wheelchair Mode of Arrival: private vehicle Arrival From: home Accompanied By: self Language: Spoken Language Preferred: [place] CHIEF COMPLAINT ANA HUERTA is a Female patient with a chief complaint of chest pain (Patient states she was seen here Thursday and dx with pleurisy and pneumonia, was put on prednisone and levaquin, complains of increasing chest pain, rates pain 6/10 at this time.). Triage Date/Time: 01-Apr-2020 11:27 Pain Rating (0-10): 6 = Moderate Pain location: chest Vital Signs: Temperature: 97.9F ( 36.6C) taken oral Blood Pressure: 104/74 Mean: Heart Rate: 101 Respiratory Rate: 18 Pulse Oximetry: 98% on room air, no respiratory support. Height: 5 feet 0.30 inches. 153.1 CM Weight: 127.8 pounds. Calculated 58.0 kg. (stated) Calculated BMI (kg/m2): 24.744 Calculated BSA (m2) 1.57 Daniela Coma Scale: Best Eye Response: (E4) spontaneous Best Motor Response: (M6) obeys commands Best Verbal Response: (V5) oriented Daniela Score: 15 Allergies: yes Mask applied: yes Patient has homicidal thoughts: no NICHOL: 3 Risk Screens Suicide Risk Screen In the Past Month: Have you wished you were or wished you could go to sleep and not wake up no In the Past Month: Have you had any actual thoughts of killing yourself no In Your Lifetime: Have you ever done anything, started to do anything, or prepared to do anything to end your life no Barajas Fall Scale Screening Has the patient fallen before (or is the patient in the ED as a result of a fall) has not had a fall Does the patient have an impaired gait does not have impaired gait Is the patient cognitively impaired not cognitively impaired Interventions: Karl Fall Interventions: LOW INTERVENTIONS: *patient oriented to surroundings and call system, * patient/family falls education completed and documented, *patients fall status communicated during bedside handoff, *whiteboard updated, *mode of toileting discussed with patient, *bed in low position with brakes locked, *call light in reach, * non-skid footwear TRAVEL HISTORY Travel History Coronavirus Screening: positive for symptoms Travel Exposure History: NO travel to International locations in the past 30 days PAIN Pain Scale Used: TYRON Pain Rating (0-10): 6 = Moderate Past Medical History: Past Medical History Reviewedyes Electronic Signatures: Debra Barger (RN) (Signed 01-Apr-2020 11:30) Entered: Risk Screens, Pain, Arrival, ABCD, Travel History, Chart Review, Scores, Past Medical History Authored: Quick Triage, Risk Screens, Pain, Arrival, ABCD, Travel History, Chart Review, Scores, Past Medical History Last Updated: 01-Apr-2020 11:30 by Debra Barger (RN) Normal [facility] APTTon 03-25-2020 aPTT Coag (Bld) [Time] 24 s Low 25 - 35 [facility] Comment on above: Result Comment: THE APTT IS NO LONGER USED FOR MONITORING UNFRACTIONATED HEPARIN THERAPY. FOR MONITORING HEPARIN THERAPY, USE THE HEPARIN ASSAY. Performed By: #### A PTT ####[address] [place] [address] BASIC METABOLIC PANELon 12-2 Anion gap [Moles/Vol] 9 mmol/L Low 10 - 20 [facility] Comment on above: Performed By: #### C 1ESQ #### [facility] [address] [place], [place] [id number] Calcium [Mass/Vol] 8.5 mg/dL Low 8.6 - 10.3 [facility] Comment on above: Performed By: #### C 1ESQ #### [facility] [address] [place], [place] [id number] Chloride [Moles/Vol] 103 mmol/L Normal 98 - 107 [facility] Comment on above: Performed By: #### C 1ESQ #### [facility] [address] [place], [place] [id number] Creatinine [Mass/Vol] 0.56 mg/dL Normal 0.50 - 1.05 [facility] Comment on above: Performed By: #### C 1ESQ #### [facility] [address] [place], [place] [id number] GFR- AM. >60 Normal >60 [facility] Comment on above: Result Comment: CALC ULATIONS OF ESTIMATED GFR ARE PERFORMED USING THE MDRD STUDY EQUATION FOR THE IDMS-TRACEABLE CREATININE METHODS. CLIN CHEM 2007;53:766-72 Performed By: #### C 1ESQ #### [facility] [facility] [address], [place] [id number] GFR-NON AM. >60 Normal >60 [facility] Comment on above: Performed By: #### C 1ESQ #### [facility] [address], [place] [id number] Glucose [Mass/Vol] 117 mg/dL High 74 - 99 [facility] Comment on above: Performed By: #### C 1ESQ #### [facility] [address], [place] [id number] HCO3 (Bld) [Moles/Vol] 24 mmol/L Normal 21 - 32 [facility] Comment on above: Performed By: #### C 1ESQ #### [facility] [address], [place] [id number] Potassium [Moles/Vol] 3.9 mmol/L Normal 3.5 - 5.3 [facility] Comment on above: Performed By: #### C 1ESQ #### [facility] [address], [place] [id number] Sodium [Moles/Vol] 132 mmol/L Low 136 - 145 [facility] Comment on above: Performed By: #### C 1ESQ #### [facility] [address], [place] [id number] Urea nitrogen [Mass/Vol] 10 mg/dL Normal 6 - 23 [facility] Comment on above: Performed By: #### C 1ESQ #### [facility] [address], [place] [id number] CBC AND DIFFERENTIALon 03-25 DIFFERENTIAL SEE MANUAL DIFF Normal [facility] Comment on above: Performed By: #### Ian 1ESQ #### [facility] [address], [place] [id number] Erythrocyte distribution width (RBC) [Ratio] 13.7 % Normal 11.5 - 14.5 [facility] Comment on above: Performed By: #### Ian 1ESQ #### [facility] [address], [place] [id number] Hematocrit (Bld) [Volume fraction] 35.9 % Low 36.0 - 46.0 [facility] Comment on above: Performed By: #### Ian 1ESQ #### [facility] [address], [place] [id number] Hemoglobin (Bld) [Mass/Vol] 12.2 g/dL Normal 12.0 - 16.0 [facility] Comment on above: Performed By: #### Ian 1ESQ #### [facility] [address], [place] [id number] MCHC (RBC) [Mass/Vol] 34.0 g/dL Normal 32.0 - 36.0 [facility] Comment on above: Performed By: #### Ian 1ESQ #### [facility] [address], [place] [id number] MCV (RBC) [Entitic vol] 97 fL Normal 80 - 100 [facility] Comment on above: Performed By: #### Ian 1ESQ #### [facility] [address], [place] [id number] NUCLEATED RBC 0.1 /100 WBC Normal [facility] Comment on above: Performed By: #### C 1ESQ #### [facility] [address], [place] [id number] Platelets (Bld) [#/Vol] 275 10*3/uL Normal 150 - 450 [facility] Comment on above: Performed By: #### C 1ESQ #### [facility] [address], [place] [id number] RBC 3.69 x10E12/L Low 4.00 - 5.20 [facility] Comment on above: Performed By: #### C 1ESQ #### [facility] [address], [place] [id number] WBC (Bld) [#/Vol] 5.2 10*3/uL Normal 4.4 - 11.3 [facility] Comment on above: Performed By: #### C 1ESQ #### [facility] [address], [place] [id number] CHEST 1 VIEWon 03-25-2020 CHEST 1 VIEW Patient Name: ANA HUERTA STUDY: CHEST 1 VIEW; 03/25/2020 2:43 pm INDICATION: Chest Pain. COMPARISON: None. ACCESSION NUMBER(S): [id number] ORDERING CLINICIAN: DESTINY FOSTER FINDINGS: A single AP portable radiograph of the chest was obtained. Multiple cardiac monitoring leads are seen over the chest. Left basilar airspace consolidation is seen and may represent small pleural effusion, atelectasis and/or pneumonia. No pneumothorax is identified. The cardiac silhouette is within normal limits for size. IMPRESSION: Left basilar airspace consolidation, as above. Clinical correlation and continued follow-up until clearing is recommended. Electronically signed by: SAJI TAO MD Normal [facility] CT ANGIO CHEST FOR PEon 03-07 CT ANGIO CHEST FOR PE Patient Name: ANA HUERTA STUDY: CT ANGIO CHEST FOR PE; 03/25/2020 5:30 pm INDICATION: cp. COMPARISON: None. ACCESSION NUMBER(S): [id number] ORDERING CLINICIAN: DESTINY FOSTER TECHNIQUE: Helical data acquisition of the chest was performed after intravenous contrast administration, 88 mL Omnipaque 350 was injected. Images were reformatted in coronal and sagittal planes. Axial and coronal MIP images were created and reviewed. FINDINGS: POTENTIAL LIMITATIONS OF THE STUDY: Motion significantly limits evaluation. HEART AND VESSELS: No obvious filling defects noted in the main pulmonary artery or its branches, however limited related to motion. Main pulmonary artery and its branches are normal in caliber. No aortic aneurysm or dissection. The study is not optimized for evaluation of coronary arteries. Left ventriculomegaly. No evidence of pericardial effusion. MEDIASTINUM AND JOAQUIN, LOWER NECK AND AXILLA: The visualized thyroid gland is within normal limits. 10 mm prevascular lymph node noted, few other 4-5 mm lymph nodes in the mediastinum. Esophagus appears within normal limits as seen. LUNGS AND AIRWAYS: The trachea and central airways are patent. No endobronchial lesion. Motion moderately limits evaluation. Small to moderate left pleural effusion with left lower lobe atelectasis and consolidation. Patchy consolidations/atelecta tic changes in the lingula. Small bullous changes in the right upper lobe. Patchy reticulonodular opacities in the right middle lobe on slice 74/151. A 4 mm subpleural nodule in the right middle lobe on slice 75/151. Few patchy atelectatic changes in the right middle lobe and lower lobe. UPPER ABDOMEN: The visualized subdiaphragmatic structures demonstrate no remarkable findings. CHEST WALL AND OSSEOUS STRUCTURES: There are no suspicious osseous lesions. Multilevel degenerative changes are present IMPRESSION: 1. Study limited by motion, no obvious pulmonary embolism noted. 2. Small to moderate left pleural effusion with adjacent atelectasis and consolidation, patchy areas of atelectasis and consolidation also noted in the lingula. Few patchy reticulonodular opacities in the right middle lobe, scattered patchy atelectatic changes in the right middle and lower lobe, these are indeterminate in nature, could be related to infectious/inflammatory etiology. 3. 4 mm subpleural nodule in the right middle lobe, recommend a follow-up CT chest in 6 months to ensure stability. Electronically signed by: RENY MOSLEY MD Normal [facility] D-DIMER, NON VTEon 0 D-DIMER, NON VTE 2482 ng/mL FEU Abnormal = 500 [facility] Comment on above: Result Comment: THE D-DIMER ASSAY IS REPORTED IN NG/ML FIBRINOGEN EQUIVALENT UNITS (FEU). THE RESULTS OF THIS ASSAY SHOULD NOT BE USED FOR THE EXCLUSION OF DEEP VEIN THROMBOSIS AND/OR PULMONARY EMBOLISM. Performed By: #### C 1ESQ #### [facility], [place] [id number] MANUAL DIFFERENTIALon 12-20- 2020 % BAND NEUTROPHIL 1.0 % Normal 0.0 - 5.0 [facility] Comment on above: Performed By: #### M DIFF ####[address] [address] % BASOPHIL 0.0 % Normal 0.0 - 2.0 [facility] Comment on above: Performed By: #### M DIFF ####[address] [address] % EOSINOPHIL 0.0 % Normal 0.0 - 6.0 [facility] Comment on above: Performed By: #### M DIFF ####[address] [address] % LYMPHOCYTE 6.0 % Normal 13.0 - 44.0 [facility] Comment on above: Performed By: #### M DIFF ####[address] [address] % MONOCYTE 1.0 % Normal 2.0 - 10.0 [facility] Comment on above: Performed By: #### M DIFF ####[address] [address] % SEG NEUTROPHIL 92.0 % Normal 40.0 - 80.0 [facility] Comment on above: Result Comment: Perc ent differential counts (%) should be interpreted in the context of the absolute cell counts (cells/L). Performed By: #### M DIFF ####[address] [address] ANC 4.83 x10E9/L Normal 1.20 - 7.70 [facility] Comment on above: Performed By: #### M DIFF ####[address] [address] BAND NEUTROPHIL 0.05 x10E9/L Normal 0.00 - 0.70 [facility] Comment on above: Performed By: #### M DIFF ####[address] [address] BASOPHIL 0.00 x10E9/L Normal 0.00 - 0.10 [facility] Comment on above: Performed By: #### M DIFF ####[address] [address] EOSINOPHIL 0.00 x10E9/L Normal 0.00 - 0.70 [facility] Comment on above: Performed By: #### M DIFF ####[address] [address] LYMPHOCYTE 0.31 x10E9/L Low 1.20 - 4.80 [facility] Comment on above: Performed By: #### M DIFF ####[address] [address] MONOCYTE 0.05 x10E9/L Low 0.10 - 1.00 [facility] Comment on above: Performed By: #### M DIFF ####[place] [address] SEG NEUTROPHIL 4.78 x10E9/L Normal 1.20 - 7.00 [facility] Comment on above: Performed By: #### M DIFF ####[address] [address] PT/INRon 03-25-2020 PT Coag (PPP) [Time] 11.6 s Normal 10.1 - 13.3 [facility] Comment on above: Performed By: #### P TINR ####[address] [address] PT, INR 1.0 Normal 0.9 - 1.1 [facility] Comment on above: Performed By: #### P TINR ####[address] [address] Provider Note - ED v2on 03-07 Provider Note - ED v2 Provider Note - ED v2: Chart Review: ED NOTES ED NOTES: Patient is a 50-year-old female who presented to the ER for chest pain. Reports that she has been having chest pain on and off over the past 4 to 5 days, up to a week, she reports that it hurts more when she takes a deep breath, sneezes. She reported that she had carpal tunnel surgery back in February, after that she fell up to reaction to lidocaine, had to be intubated and was at [place]. She denies any cardiac problems for herself, but reports there is family history. She denies any cough, shortness of breath, radiation of pain anywhere else. Patient denies any abdominal pain. She denies any fever, chills. She reports pain is worse with taking a deep breath, there is no exertional, component to it. HISTORY OF PRESENTING ILLNESS ANA is a 50 year old Female and was seen by me at 25-Mar-2020 13:47 for a chief complaint of chest pain (c/o left sided chest pain x 4-5 days. c/o increased pain with deep breath and movement. pt was intubated on 02/24 after having an anaphylaxis reaction.)(1). Triage Information: Most recent Vital Sign Value Date Temp (F): 98.7 03-25-2020 13:59 Temp (C): 37 03-25-2020 13:59 Heart Rate (beats/min): 99 03-25-2020 13:59 Respirations (breaths/min): 16 03-25-2020 13:59 SpO2 (%): 97 03-25-2020 13:59 BP Systolic (mm Hg): 118 03-25-2020 13:59 BP Diastolic (mm Hg): 68 03-25-2020 13:59 PAST MEDICAL HISTORY ATTESTATION: I have reviewed and confirmed nurse's/medic's notes for patient's medications, allergies, and medical, surgical, family and social history ALLERGIES/INTOLERANCES: Allergy Allergen: Amoxil Type: Drug Reaction: Unknown Allergen: lidocaine Type: Drug Reaction: Anaphylaxis Intolerance Allergen: Zithromax Type: Drug Reaction: GI Upset HEALTH HISTORY: No documented data. 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 ENT: No pharyngitis, reported voice problems since intubation Cardiac: No palpitations, syncope, near syncope. Reported chest pain Pulmonary: No shortness of breath, cough, hemoptysis. Heme/lymph: No swollen glands, fever, bleeding. GI: No abdominal pain,nausea, vomiting, diarrhea. Musculoskeletal: No limb pain, joint pain, joint swelling. Skin: No rashes. Review of systems is otherwise negative unless stated above or in history of present illness. RESULTS/VITAL SIGNS RESULTS: Recent Lab Results: I have reviewed these laboratory results: Troponin I, Serum [Drawn 25-Mar-2020 16:58:00], Troponin I, Serum [Drawn 25-Mar-2020 14:07:00], RBC Morphology [Drawn 25-Mar-2020 14:07:00], Complete Blood Count + Differential [Drawn 25-Mar-2020 14:07:00], Basic Metabolic Panel [Drawn 25-Mar-2020 14:07:00], PT + INR, Plasma [Drawn 25-Mar-2020 14:07:00], Manual Differential Panel [Drawn 25-Mar-2020 14:07:00], Activated Partial Thromboplastin Time [Drawn 25-Mar-2020 14:07:00], D-Dimer, Non VTE [Drawn 25-Mar-2020 14:07:00]. Radiology Results: TH CT Angio Chest for PE [Mar 25 2020 5:57PM] Xray Chest 1 View [Mar 25 2020 3:16PM] VITAL SIGNS: T PRBP SpO2O2(LPM) %FiO2 Method 25-Mar-2020 18:14:00-0260853/72 97 room air, no respiratory support 25-Mar-2020 17:47:00-5974556/ 97 room air, no respiratory support 25-Mar-2020 16:58:00-629780/ 96 room air, no respiratory support 25-Mar-2020 16:12:00-430923 96 room air, no respiratory support 25-Mar-2020 15:14:00-073573/64 97 room air, no respiratory support 25-Mar-2020 14:37:00-9309594 97 room air, no respiratory support 25-Mar-2020 13:59:00-004733966/ 97 room air, no respiratory support 25-Mar-2020 13:35:00-567200691/ 97 room air, no respiratory support EKG INTERPRETATION #1: Impression: Normal sinus rhythm at 91, left axis deviation, no acute ST depressions. Minimal ST elevation in lead II, with CT depression in that lead. Normal T waves. Normal QRS, QT and CT intervals. PHYSICAL EXAM Image Comments: Physical Exam: Appearance: Alert, oriented , cooperative, in no acute distress. Well nourished & well hydrated. Skin: Intact, dry skin, no lesions, rash, petechiae or purpura. Eyes: PERRLA, EOMs intact, Conjunctiva pink w (more content not included)... Normal [facility] RED CELL MORPHOLOGYon 2019 RBC morphology finding Nom (Bld) NORMAL Normal [facility] Comment on above: Performed By: #### M ORP2 #### [place] [address] Risk Screen - Adult Emergenc yon 03-25-2020 Risk Screen - Adult Emergency Preferred Language: Preferred Language: Preferred Language for Discussing Health Care (patient/designee)Maris greene Advanced Directives: Advance Directive/DNRno Family Violence Adult: Abuse Screen: Are you or have you been threatened or abused physically, emotionally, or sexually by anyoneno Learning Assessment (Patient): Learning Assessment (Patient): Patient is Able to be Assessed for Learningyes Factors Influencing Readiness to Learnn/a Factors that Impact Ability to Learnnone Devices/Methods Used to Communicatenone Learning Preferencesverbal instruction Cultural Considerationsnone Developmental Considerationsnone Pentecostalism Considerationsnone Learning Assessment (Other Learner): Learning Assessment (Other Learner): Other learner availableno Pressure Injury/TB/Substance: Pressure Injury: Do you have a coughno Substance Use Current or Former HistoryYES: Alcohol Alcohol Useoccasionally Admission Risk Screen: Significant IndicatorsComplete CAGE: CAGE: Is this an injured patient at a Trauma Center ([facility]/[place]): no Electronic Signatures: Maia Austin (CARLOS) (Signed 25-Mar-2020 14:12) Authored: Preferred Language, Advanced Directives, Family Violence Adult, Learning Assessment (Patient), Learning Assessment (Other Learner), Pressure Injury/TB/Substance, Pressure Injury, CAGE Last Updated: 25-Mar-2020 14:12 by Maia Austin (RN) Normal [facility] TROPONIN Ion 03-25-2020 TROPONIN I Canceled [facility] Comment on above: Order Comment: TEST TROPONIN I WAS CANCELLED, 03/25/2020 19:47 PATIENT DISCHARGED. Result Comment: LESS THAN 0.04 NG/ML: NEGATIVE REPEAT TESTING IN THREE TO SIX HOURS IF CLINICALLY INDICATED. 0.04 - 0.5 NG/ML: CONSISTENT WITH POSSIBLE CARDIAC DAMAGE AND POSSIBLE INCREASED CLINICAL RISK. SERIAL MEASUREMENTS MAY HELP ASSESS EXTENT OF MYOCARDIAL DAMAGE. >0.5 NG/ML: CONSISTENT WITH CARDIAC DAMAGE, INCREASED CLINICAL RISK AND MYOCARDIAL INFARCTION. SERIAL MEASUREMENTS MAY HELP ASSESS EXTENT OF MYOCARDIAL DAMAGE. . Note: Troponin I testing is performed using different testing methodology at [facility] than at other [facility]. Direct result comparisons should only be made within the same method. Performed By: #### C 1ESQ #### [facility] [address] [place] [id number] Troponin I.cardiac [Mass/Vol] ng/mL Normal 0.00 - 0.03 [facility] Comment on above: Result Comment: LESS THAN 0.04 NG/ML: NEGATIVE REPEAT TESTING IN THREE TO SIX HOURS IF CLINICALLY INDICATED. 0.04 - 0.5 NG/ML: CONSISTENT WITH POSSIBLE CARDIAC DAMAGE AND POSSIBLE INCREASED CLINICAL RISK. SERIAL MEASUREMENTS MAY HELP ASSESS EXTENT OF MYOCARDIAL DAMAGE. >0.5 NG/ML: CONSISTENT WITH CARDIAC DAMAGE, INCREASED CLINICAL RISK AND MYOCARDIAL INFARCTION. SERIAL MEASUREMENTS MAY HELP ASSESS EXTENT OF MYOCARDIAL DAMAGE. . Note: Troponin I testing is performed using different testing methodology at [facility] than at other [facility]. Direct result comparisons should only be made within the same method. Performed By: #### T ROP2 #### [facility] [address] [place] [address] Troponin I.cardiac [Mass/Vol] ng/mL Normal 0.00 - 0.03 [facility] Comment on above: Result Comment: LESS THAN 0.04 NG/ML: NEGATIVE REPEAT TESTING IN THREE TO SIX HOURS IF CLINICALLY INDICATED. 0.04 - 0.5 NG/ML: CONSISTENT WITH POSSIBLE CARDIAC DAMAGE AND POSSIBLE INCREASED CLINICAL RISK. SERIAL MEASUREMENTS MAY HELP ASSESS EXTENT OF MYOCARDIAL DAMAGE. >0.5 NG/ML: CONSISTENT WITH CARDIAC DAMAGE, INCREASED CLINICAL RISK AND MYOCARDIAL INFARCTION. SERIAL MEASUREMENTS MAY HELP ASSESS EXTENT OF MYOCARDIAL DAMAGE. . Note: Troponin I testing is performed using different testing methodology at [facility] than at other [facility]. Direct result comparisons should only be made within the same method. Performed By: #### C 1ESQ #### [facility] [address], [place] [id number] Triage - EDon 03-25-2020 Triage - ED Quick Triage: Are You no Have You Given In The Last 6 Weeksno Are You Currently Breastfeedingno Chart Review: PRIMARY ASSESSMENT ANA HUERTA's primary assessment is Within Defined Limits. The airway is open and patent. Breathing spontaneous and unlabored with clear breath sounds bilaterally. Circulation is normal with good peripheral pulses. Skin is warm and dry and color is normal for race. ARRIVAL INFORMATION Means of Arrival: Ambulatory Mode of Arrival: private vehicle Arrival From: home Accompanied By: self Language: Spoken Language Preferred: Bermudian Reading Language Preferred: B[place]udian Present on Arrival: Device Present on Arrival to ED: no CHIEF COMPLAINT ANA HUERTA is a Female patient with a chief complaint of chest pain (c/o left sided chest pain x 4-5 days. c/o increased pain with deep breath and movement. pt was intubated on 02/24 after having an anaphylaxis reaction.). Triage Date/Time: 25-Mar-2020 13:35 Pain Rating (0-10): 6 = Moderate Pain location: chest Vital Signs: Temperature: 98.7F ( 37.0C) taken oral Blood Pressure: 118/68 Mean: Heart Rate: 99 Respiratory Rate: 16 Pulse Oximetry: 97% on room air, no respiratory support. Height: 5 feet 3.00 inches. 160.0 CM Weight: 131.1 pounds. Calculated 59.5 kg. (stated) Calculated BMI (kg/m2): 23.242 Calculated BSA (m2) 1.63 Daniela Coma Scale: Best Eye Response: (E4) spontaneous Best Motor Response: (M6) obeys commands Best Verbal Response: (V5) oriented [place] Score: 15 Allergies: yes Patient has homicidal thoughts: no NICHOL: 2 Symptoms Are POSITIVE For: dyspnea and pain Chest Pain Location-Left: upper chest Risk Screens Suicide Risk Screen In the Past Month: Have you wished you were or wished you could go to sleep and not wake up no In the Past Month: Have you had any actual thoughts of killing yourself no In Your Lifetime: Have you ever done anything, started to do anything, or prepared to do anything to end your life no Barajas Fall Scale Screening Has the patient fallen before (or is the patient in the ED as a result of a fall) has not had a fall Does the patient have an impaired gait does not have impaired gait Is the patient cognitively impaired not cognitively impaired Interventions: Barajas Fall Interventions: LOW INTERVENTIONS: *patient oriented to surroundings and call system, * patient/family falls education completed and documented, *patients fall status communicated during bedside handoff, *whiteboard updated, *mode of toileting discussed with patient, *bed in low position with brakes locked, *call light in reach, * non-skid footwear TRAVEL HISTORY Travel History Coronavirus Screening: no exposure or symptoms Travel Exposure History: NO travel to International locations in the past 30 days PAIN Pain Scale Used: TYRON Pain Rating (0-10): 6 = Moderate Past Medical History: Past Medical History Reviewedyes Electronic Signatures: Maia Austin (CARLOS) (Signed 25-Mar-2020 14:08) Entered: Risk Screens, Pain, Arrival, ABCD, Travel History, Chart Review, Scores, Past Medical History Authored: Quick Triage, Risk Screens, Pain, Arrival, ABCD, Travel History, Chart Review, Scores, Past Medical History Last Updated: 25-Mar-2020 14:08 by Maia Austin (CARLOS) Normal [facility] Basic Metabolic Panelon 11-2 Anion gap [Moles/Vol] 10 mmol/L 10 - 2 0 mmol/L [facility] Calcium [Mass/Vol] 8.5 mg/dL 8.4 - 10. 2 mg/dL [facility] Chloride [Moles/Vol] 106 mmol/L 98 - 10 8 mmol/L [facility] Creatinine [Mass/Vol] 0.42 mg/dL 0.40 - 1.10 [facility] GFR/1.73 sq M predicted among non-blacks MDRD (S/P/Bld) [Vol rate/Area] The eGFR should be used for monitoring renal function only and not for medication dosing. [facility] GFR/1.73 sq M.predicted CKD-EPI (S/P/Bld) [Vol rate/Area] 119 >=60 mL/min/1.73 m2 [facility] Glucose [Mass/Vol] 160 mg/dL High 65 - 99 mg/dL [facility] HCO3 [Moles/Vol] 23 mmol/L 21 - 32 mmol/L [facility] Interpretation and review of laboratory results Abnormal [facility] Potassium [Moles/Vol] 4.6 mmol/L 3.5 - 5.1 mmol/L [facility] Sodium [Moles/Vol] 134 mmol/L Low 135 - 145 mmol/L [facility] Urea nitrogen [Mass/Vol] 19 mg/dL 8 - 25 mg/dL [facility] Urea nitrogen/Creatinine [Mass ratio] 45.2 mg/mg High [facility] CBCon 02-26-2020 Erythrocyte distribution width (RBC) [Entitic vol] 13.9 % 11.6 - 14.8 % [facility] Hematocrit (Bld) [Volume fraction] 31.9 % Low 36 - 46 % [facility] Hemoglobin (Bld) [Mass/Vol] 10.7 g/dL Low 12 - 16 g/dL [facility] Interpretation and review of laboratory results Abnormal [facility] MCH (RBC) [Entitic mass] 32.4 pg 26 - 34 pg [facility] MCHC (RBC) [Mass/Vol] 33.5 g/dL 31 - 37 g/dL [facility] MCV (RBC) [Entitic vol] 96.7 fL 80 - 100 fL [facility] Nucleated RBC (Bld) [#/Vol] 0.00 10*3/uL [facility] Nucleated RBC/100 WBC (Bld) [Ratio] 0.0 % [facility] Platelet mean volume (Bld) [Entitic vol] 9.1 fL Low 9.4 - 12.4 fL [facility] Platelets (Bld) [#/Vol] 372 10*3/uL [facility] RBC (Bld) [#/Vol] 3.30 10*6/uL Low [facility] WBC (Bld) [#/Vol] 7.54 10*3/uL [facility] Arterial Blood Gason 020 Draw Attempts = 1 [facility] [facility] Comment on above: Order Comment: SPECI MEN BLOOD GAS ARTERIAL Performed By: #### H ABG #### [facility] CLIA # [id number] [address] [place] [address] 99581 Draw Site Left Radial [facility] Comment on above: Order Comment: SPECI MEN BLOOD GAS ARTERIAL Performed By: #### H ABG #### [facility] CLIA # [id number] [address] [place] [address] 56372 FIO2 = 60 Normal [facility] Comment on above: Order Comment: SPECI MEN BLOOD GAS ARTERIAL Performed By: #### H ABG #### [facility] CLIA # [id number] [address] [place] [address] 83916 Modified Caesar Positive [facility] Comment on above: Order Comment: SPECI MEN BLOOD GAS ARTERIAL Performed By: #### H ABG #### [facility] CLIA # [id number] [address] [place] [address] 19124 Pressure Held x5 [facility] Comment on above: Order Comment: SPECI MEN BLOOD GAS ARTERIAL Performed By: #### H ABG #### [facility] CLIA # [id number] [address] [place] [address] 03586 Radio News Anchor dj [facility] Comment on above: Order Comment: SPECI MEN BLOOD GAS ARTERIAL Performed By: #### H ABG #### [facility] CLIA # [id number] [address] [place] [address] 88575 Base Excess = -3.5 Normal -10.0-10.0 [facility] Comment on above: Order Comment: SPECI MEN BLOOD GAS ARTERIAL Performed By: #### H ABG #### [facility] CLIA # [id number] [address] [place] [address] 48015 HCO3 (Bld) [Moles/Vol] 20.2 mmol/L Low 21.0-28.0 [facility] Comment on above: Order Comment: SPECI MEN BLOOD GAS ARTERIAL Performed By: #### H ABG #### [facility] CLIA # [id number] [address] [place] [address] Oxygen (Bld) [Partial pressure] 280 mm[Hg] High 83-108 [facility] Comment on above: Order Comment: SPECI MEN BLOOD GAS ARTERIAL Performed By: #### H ABG #### [facility] CLIA # [id number] [address] [place] [address] Oxygen saturation in Blood 100 % High 95.0-99.0 [facility] Comment on above: Order Comment: SPECI MEN BLOOD GAS ARTERIAL Performed By: #### H ABG #### [facility] CLIA # [id number] [address] [place] [address] PCO2 = 34 Low 35-48 [facility] Comment on above: Order Comment: SPECI MEN BLOOD GAS ARTERIAL Performed By: #### H ABG #### [facility] CLIA # [id number] [address] [place] [address] pH (Bld) 7.39 [pH] Normal 7.35-7.45 [facility] Comment on above: Order Comment: SPECI MEN BLOOD GAS ARTERIAL Performed By: #### H ABG #### [facility] CLIA # [id number] [address] [place] [address] Total CO2 = 21.2 Low 22.0-29.0 [facility] Comment on above: Order Comment: SPECI MEN BLOOD GAS ARTERIAL Performed By: #### H ABG #### [facility] CLIA # [id number] [address] [place] [address] Hematoma Present No [facility] Comment on above: Order Comment: SPECI MEN BLOOD GAS ARTERIAL Performed By: #### H ABG #### [facility] CLIA # [id number] [address] [place] [address] Mode N/A Normal [facility] Comment on above: Order Comment: SPECI MEN BLOOD GAS ARTERIAL Performed By: #### H ABG #### [facility] CLIA # [id number] [address] [place] [address] CBC WITH AUTO DIFFERENTIALon 02-25-2020 Basophils (Bld) [#/Vol] 0.00 10*3/uL [facility] Basophils/100 WBC (Bld) 0.0 % [facility] Eosinophils (Bld) [#/Vol] 0.00 10*3/uL [facility] Eosinophils/100 WBC (Bld) 0.0 % [facility] Erythrocyte distribution width (RBC) [Entitic vol] 13.5 % 11.6 - 14.8 % [facility] Hematocrit (Bld) [Volume fraction] 33.5 % Low 36 - 46 % [facility] Hemoglobin (Bld) [Mass/Vol] 11.1 g/dL Low 12 - 16 g/dL [facility] Immature granulocytes (Bld) [#/Vol] 0.02 10*3/uL [facility] Immature granulocytes/100 WBC (Bld) 0.60 % [facility] Comment on above: The IG parameter is the percentage of metamyelocytes, myelocytes and promyelocytes. An immature granulocyte count (IG) of 1% or more suggests the possibility of infection, an IG count of 3% is very likely related to an infection. Interpretation and review of laboratory results Abnormal [facility] Lymphocytes (Bld) [#/Vol] 0.36 10*3/uL Low [facility] Lymphocytes/100 WBC (Bld) 10.6 % [facility] MCH (RBC) [Entitic mass] 31.8 pg 26 - 34 pg [facility] MCHC (RBC) [Mass/Vol] 33.1 g/dL 31 - 37 g/dL [facility] MCV (RBC) [Entitic vol] 96.0 fL 80 - 100 fL [facility] Monocytes (Bld) [#/Vol] 0.14 10*3/uL Low [facility] Monocytes/100 WBC (Bld) 4.1 % [facility] Neutrophils (Bld) [#/Vol] 2.89 10*3/uL [facility] Neutrophils/100 WBC (Bld) 84.7 % [facility] Nucleated RBC (Bld) [#/Vol] 0.00 10*3/uL [facility] Nucleated RBC/100 WBC (Bld) [Ratio] 0.0 % [facility] Platelet mean volume (Bld) [Entitic vol] 9.1 fL Low 9.4 - 12.4 fL [facility] Platelets (Bld) [#/Vol] 333 10*3/uL [facility] RBC (Bld) [#/Vol] 3.49 10*6/uL Low [facility] WBC (Bld) [#/Vol] 3.41 10*3/uL Low [facility] CBC With Platelet and Differ entialon 02-25-2020 Bands = 1 Normal 0-5 [facility] Comment on above: Performed By: #### M DIFF, CBCX, CMP #### [facility] CLIA # [id number] [address] [place] [address] 63750 Basophils (Bld) [#/Vol] = 0.0 Normal 0.0-0.1 [facility] Comment on above: Performed By: #### M DIFF, CBCX, CMP #### [facility] CLIA # [id number] [address] [place] [address] 04191 Basophils/100 WBC (Bld) = 0 Normal 0-1 [facility] Comment on above: Performed By: #### M DIFF, CBCX, CMP #### [facility] CLIA # [id number] [address] [facility] [address] [place] [address] 29949 Eosinophils (Bld) [#/Vol] = 0.0 Normal 0.0-0.4 [facility] Comment on above: Performed By: #### M DIFF, CBCX, CMP #### [facility] CLIA # [id number] [address] [facility] [address] [place] [address] 55013 Eosinophils (Bld) [#/Vol] = 0 Normal 0-5 [facility] Comment on above: Performed By: #### M DIFF, CBCX, CMP #### [facility] CLIA # [id number] [address] [place] [address] 10769 Lymphocytes (Bld) [#/Vol] 0.2 10*3/uL Low 0.9-2.5 [facility] Comment on above: Performed By: #### M DIFF, CBCX, CMP #### [facility] CLIA # [id number] [address] [place] [address] 30581 Lymphocytes (Bld) [#/Vol] 6 10*3/uL Low 13-44 [facility] Comment on above: Performed By: #### M DIFF, CBCX, CMP #### [facility] CLIA # [id number] [address] [place] [address] 54989 MDIFF (Performed) PERFORMED Normal [facility] Comment on above: Performed By: #### M DIFF, CBCX, CMP #### [facility] CLIA # [id number] [address] [place] [address] 46915 Monocytes (Bld) [#/Vol] 0.2 10*3/uL Normal 0.1-1.0 [facility] Comment on above: Performed By: #### M DIFF, CBCX, CMP #### [facility] CLIA # [id number] [address] [place] [address] 27003 Monocytes (Bld) [#/Vol] 4 10*3/uL Low 5-9 [facility] Comment on above: Performed By: #### M DIFF, CBCX, CMP #### [facility] CLIA # [id number] [address] [place] [address] 25968 Neutrophils (Bld) [#/Vol] 89 10*3/uL High 39-75 [facility] Comment on above: Performed By: #### M DIFF, CBCX, CMP #### [facility] CLIA # [id number] [address] [facility] [address] [place] [address] 66409 Neutrophils (Bld) [#/Vol] 3.7 10*3/uL Normal 2.1-6.5 [facility] Comment on above: Performed By: #### M DIFF, CBCX, CMP #### [facility] CLIA # [id number] [address] [place] [address] 03792 Erythrocyte distribution width (RBC) [Ratio] 13.2 % Normal 11.7-14.4 [facility] Comment on above: Performed By: #### M DIFF, CBCX, CMP #### [facility] CLIA # [id number] [address] [place] [address] 64569 Hematocrit (Bld) [Volume fraction] 36.1 % Low 37.0-47.0 [facility] Comment on above: Performed By: #### M DIFF, CBCX, CMP #### [facility] CLIA # [id number] [address] [place] [address] 09724 Hemoglobin (Bld) [Mass/Vol] 12.1 g/dL Normal 11.5-16.0 [facility] Comment on above: Performed By: #### M DIFF, CBCX, CMP #### [facility] CLIA # [id number] [address] [place] [address] 81250 MCH (RBC) [Entitic mass] 31.3 pg High 27.0-31.0 [facility] Comment on above: Performed By: #### M DIFF, CBCX, CMP #### [facility] CLIA # [id number] [address] [place] [address] 84234 MCHC (RBC) [Mass/Vol] 33.5 g/dL Normal 31.5-36.[address] [facility] Comment on above: Performed By: #### M DIFF, CBCX, CMP #### [facility] CLIA # [id number] [address] [place] [address] 05518 MCV (RBC) [Entitic vol] 93.5 fL Normal 82.0-101.0 [facility] Comment on above: Performed By: #### M DIFF, CBCX, CMP #### [facility] CLIA # [id number] [address] [place] [address] 80859 Platelet mean volume (Bld) [Entitic vol] 8.9 fL Normal 8.2-11.4 [facility] Comment on above: Performed By: #### M DIFF, CBCX, CMP #### [facility] CLIA # [id number] [address] [place] [address] 87482 Platelets (Bld) [#/Vol] 352 10*3/uL Normal 130.0-400.0 [facility] Comment on above: Performed By: #### M DIFF, CBCX, CMP #### [facility] CLIA # [id number] [address] [place] [address] 25479 RBC (Bld) [#/Vol] 3.86 10*6/uL Low 4.20-5.40 [facility] Comment on above: Performed By: #### M DIFF, CBCX, CMP #### [facility] CLIA # [id number] [address] [place] [address] 15771 WBC (Bld) [#/Vol] 4.1 10*3/uL Low 4.4-10.2 [facility] Comment on above: Performed By: #### M DIFF, CBCX, CMP #### [facility] CLIA # [id number] [address] [facility] [address] [place] [address] 11652 COVID-19/INFLUENZA A,B MOLEC [facility] 02-25-2020 COVID-19/INFLUENZA A,B MOLECULAR SARS-COV-2 (LINNETTE): Not Detected INFLUENZA A (LINNETTE): Not Detected INFLUENZA B (LINNETTE): Not Detected Normal Not Detected [facility] Comment on above: Order Comment: This test was performed under the FDA's Emergency Use Authorization (EUA). Testing was performed using the Alfred rosales SARS-CoV-2 AND Influenza A/B Nucleic Acid Test on the rosales Linnette System. This test has not been approved for use in asymptomatic patients and its performance in this patient population has not been evaluated. Negative results do not rule out the presence of SARS-CoV-2, influenza A, and/or influenza B. Fact sheets for the EUA can be found at the following links: For Healthcare Providers: https://www.fda.gov/media/787202/download For Patients: https://www.fda.gov/media/100174/download Performed By: #### L [id number] #### [facility] [address] Onel Szymanski M.D. [id number] COVID-19/Influenza A,B Molec aron 02-25-2020 Influenza A Not Detected Not Detected [facility] Influenza B Not Detected Not Detected [facility] Interpretation and review of laboratory results Normal [facility] SARS-CoV-2 Not Detected Not Detected [facility] This test was perfor med under the FDA's Emergency Use Authorization (EUA). Testing was performed using the Alfred rosales SARS-CoV-2 & Influenza A/B Nucleic Acid Test on the rosales Linnette System. This test has not been approved for use in asymptomatic patients and its performance in this patient population has not been evaluated. Negative results do not rule out the presence of SARS-CoV-2, influenza A, and/or influenza B. Fact sheets for the EUA can be found at the following links: For Healthcare Providers: https://www.fda.gov/med ia/067241/download For Patients: https://www.fda.gov/med ia/963480/download [facility] Calcium, Ionizedon 0 Calcium.ionized [Mass/Vol] 4.8 mg/dL 4.5 - 5.3 mg/dL [facility] Comprehensive Metabolic Pane magda 02-25-2020 Albumin [Mass/Vol] 3.1 g/dL Low 3.2 - 5.2 g/dL [facility] ALP [Catalytic activity/Vol] 41 U/L 40 - 150 U/L [facility] ALT [Catalytic activity/Vol] 62 U/L High 0 - 40 U/L [facility] Anion gap [Moles/Vol] 16 mmol/L 10 - 2 0 mmol/L [facility] AST [Catalytic activity/Vol] 56 U/L High 0 - 45 U/L [facility] Comment on above: Slightly Hemolyzed Bilirubin [Mass/Vol] 0.2 mg/dL 0 - 1.3 mg/dL [facility] Calcium [Mass/Vol] 7.6 mg/dL Low 8.4 - 10. 2 mg/dL [facility] Chloride [Moles/Vol] 103 mmol/L 98 - 10 8 mmol/L [facility] Creatinine [Mass/Vol] 0.48 mg/dL 0.40 - 1.10 [facility] GFR/1.73 sq M predicted among non-blacks MDRD (S/P/Bld) [Vol rate/Area] The eGFR should be used for monitoring renal function only and not for medication dosing. [facility] GFR/1.73 sq M.predicted CKD-EPI (S/P/Bld) [Vol rate/Area] 114 >=60 mL/min/1.73 m2 [facility] Glucose [Mass/Vol] 143 mg/dL High 65 - 99 mg/dL [facility] HCO3 [Moles/Vol] 19 mmol/L Low 21 - 32 mmol/L [facility] Interpretation and review of laboratory results Abnormal [facility] Potassium [Moles/Vol] 4.5 mmol/L 3.5 - 5.1 mmol/L [facility] Protein [Mass/Vol] 5.8 g/dL Low 6 - 8 g/dL [facility] Sodium [Moles/Vol] 133 mmol/L Low 135 - 145 mmol/L [facility] Urea nitrogen [Mass/Vol] 11 mg/dL 8 - 25 mg/dL [facility] Urea nitrogen/Creatinine [Mass ratio] 22.9 mg/mg High [facility] GFR > 60 Normal >60 [facility] Comment on above: Performed By: #### M DIFF, CBCX, CMP #### [facility] CLIA # [id number] [address] [facility] [address] [place] [address] 65858 Albumin [Mass/Vol] 2.6 g/dL Low 3.4-5.0 [facility] Comment on above: Performed By: #### M DIFF, CBCX, CMP #### [facility] CLIA # [id number] [address] [facility] [address] [place] [address] 90107 Albumin/Globulin [Mass ratio] 0.7 {ratio} Normal [facility] Comment on above: Performed By: #### M DIFF, CBCX, CMP #### [facility] CLIA # [id number] [address] [facility] [address] [place] [address] 85666 ALP [Catalytic activity/Vol] 43 U/L Low 46-116 [facility] Comment on above: Performed By: #### M DIFF, CBCX, CMP #### [facility] CLIA # [id number] [address] [place] [address] 49152 ALT [Catalytic activity/Vol] 86 U/L High 14-59 [facility] Comment on above: Performed By: #### M DIFF, CBCX, CMP #### [facility] CLIA # [id number] [address] [place] [address] Anion gap [Moles/Vol] 13.7 mmol/L Normal [facility] Comment on above: Performed By: #### M DIFF, CBCX, CMP #### [facility] CLIA # [id number] [address] [place] [address] AST [Catalytic activity/Vol] 58 U/L High 15-37 [facility] Comment on above: Performed By: #### M DIFF, CBCX, CMP #### [facility] CLIA # [id number] [address] [place] [address] Bilirubin Ql (U) = 0.54 Normal 0.20-1.00 [facility] Comment on above: Result Comment: Use of this assay method is not recommended for patients undergoing treatment with eltrombopag due to potential for falsely elevated results. Performed By: #### M DIFF, CBCX, CMP #### [facility] CLIA # [id number] [address] [place] [address] Calcium [Mass/Vol] 7.6 mg/dL Low 8.5-10.1 [facility] Comment on above: Performed By: #### M DIFF, CBCX, CMP #### [facility] CLIA # [id number] [address] [place] [address] 30649 Chloride [Moles/Vol] 100 mmol/L Normal 98-107 [facility] Comment on above: Performed By: #### M DIFF, CBCX, CMP #### [facility] CLIA # [id number] [address] [place] [address] 88325 CO2 [Moles/Vol] 23.1 mmol/L Normal 21.0-32.0 [facility] Comment on above: Performed By: #### M DIFF, CBCX, CMP #### [facility] CLIA # [id number] [address] [place] [address] 03353 Creatinine [Mass/Vol] 0.74 mg/dL Normal 0.55-1.[address] [facility] Comment on above: Performed By: #### M DIFF, CBCX, CMP #### [facility] CLIA # [id number] [address] [place] [address] 34815 Globulin (S) [Mass/Vol] 3.5 g/dL Normal [facility] Comment on above: Performed By: #### M DIFF, CBCX, CMP #### [facility] CLIA # [id number] [address] [place] [address] 59490 Glucose [Mass/Vol] 147 mg/dL High 70-110 [facility] Comment on above: Performed By: #### M DIFF, CBCX, CMP #### [facility] CLIA # [id number] [address] [place] [address] 39479 NonAfrican Russian GFR > 60 Normal >60 [facility] Comment on above: Performed By: #### M DIFF, CBCX, CMP #### [facility] CLIA # [id number] [address] [place] [address] 54513 Osmolality [Osmolality] 269 mosm/kg Normal [facility] Comment on above: Performed By: #### M DIFF, CBCX, CMP #### [facility] CLIA # [id number] [address] [place] [address] 06842 Potassium [Moles/Vol] 3.8 mmol/L Normal 3.5-5.[address] [facility] Comment on above: Performed By: #### M DIFF, CBCX, CMP #### [facility] CLIA # [id number] [address] [place] [address] 64143 Protein [Mass/Vol] 6.1 g/dL Low 6.4-8.2 [facility] Comment on above: Performed By: #### M DIFF, CBCX, CMP #### [facility] CLIA # [id number] [address] [place] [address] 06613 Sodium [Moles/Vol] 133 mmol/L Low 136-145 [facility] Comment on above: Performed By: #### M DIFF, CBCX, CMP #### [facility] CLIA # [id number] [address] [place] [address] Urea nitrogen [Mass/Vol] 13 mg/dL Normal 7-18 [facility] Comment on above: Performed By: #### M DIFF, CBCX, CMP #### [facility] CLIA # [id number] [address] [facility] [place] [address] Urea nitrogen/Creatinine [Mass ratio] 17.6 mg/mg Normal [facility] Comment on above: Performed By: #### M DIFF, CBCX, CMP #### [facility] CLIA # [id number] [address] [place] [address] Differential Manualon 2019 Number of Cells Counted- not reportable = 100 Normal [facility] Comment on above: Performed By: #### M DIFF, CBCX, CMP #### [facility] CLIA # [id number] [address] [place] [address] 66301 Magnesiumon 02-25-2020 Magnesium [Mass/Vol] 1.8 mg/dL 1.6 - 2 .4 mg/dL [facility] Otheron 02-25-2020 Interpretation and review of laboratory results Normal [facility] POC Glucoseon 02-25-2020 Glucose [Mass/Vol] 141 mg/dL High 65 - 99 mg/dL [facility] Interpretation and review of laboratory results Abnormal [facility] Phosphoruson 02-25-2020 Phosphate [Mass/Vol] 3.6 mg/dL 2.7 - 4 .5 mg/dL [facility] XR ABDOMEN /KUB/FLAT PLATE/1 VIEWon 02-25-2020 XR ABDOMEN /KUB/FLAT PLATE/1 VIEW EXAMINATION: XR ABDOMEN /KUB/FLAT PLATE/1 VIEW 02/25/2020 9:42 AM HISTORY: ORDERING SYSTEM PROVIDED HISTORY: OG tube, TECHNOLOGIST PROVIDED HISTORY: Illness/Other Reason for exam: OG tube Cancer History: u Surgery, RadiationHistory: u Encounter Type: Initial Additional signs and symptoms: ORDERING SYSTEM PROVIDED DIAGNOSIS CODES: COMPARISON: None. FINDINGS: The orogastric tube along with the proximal port is in the stomach with the distal tip in the distal body of the stomach. On this limited study, there are no abnormally dilated loops of small or large bowel. There are multiple artifacts overlying the lower chest, abdomen. The visualized osseous structures are normal. There is no organomegaly or pneumoperitoneum. There is probably increased density at the left lung base probably due to small effusion, atelectasis. There is clear-appearing right lung base. IMPRESSION: 1. Orogastric tube along with the proximal port in the stomach with the distal tip in the distal body of the stomach. [facility] Workstation ID: [id number] Dictated by: FARHANA LIM on Sat Feb 25, 2020 11:20:20 AM EST Transcribed by: LAURA HENRY on Sat Feb 25, 2020 11:22:37 AM EST Finalized by: FARHANA LIM on Sat Feb 25, 2020 11:56:17 AM EST Normal [facility] Comment on above: Order Comment: Injur y/Trauma or Illness?:Illness/Other How long have you had these symptoms (acute/chronic)?:Acute Reason for exam?:OG tube History of cancer?:u Surgeries, chemotherapy, or radiation?:u Type of Exam?:Initial Additional signs and symptoms?: XR ABDOMEN 1 VIEWon 02-25-20 EXAMINATION: XR ABDO MEN /KUB/FLAT PLATE/1 VIEW 02/25/2020 9:42 AM HISTORY: ORDERING SYSTEM PROVIDED HISTORY: OG tube, TECHNOLOGIST PROVIDED HISTORY: Illness/Other Reason for exam: OG tube Cancer History: u Surgery, RadiationHistory: u Encounter Type: Initial Additional signs and symptoms: ORDERING SYSTEM PROVIDED DIAGNOSIS CODES: COMPARISON: None. FINDINGS: The orogastric tube along with the proximal port is in the stomach with the distal tip in the distal body of the stomach. On this limited study, there are no abnormally dilated loops of small or large bowel. There are multiple artifacts overlying the lower chest, abdomen. The visualized osseous structures are normal. There is no organomegaly or pneumoperitoneum. There is probably increased density at the left lung base probably due to small effusion, atelectasis. There is clear-appearing right lung base. [facility] 1. Orogastric tube along with the proximal port in the stomach with the distal tip in the distal body of the stomach. [facility] Workstation ID: [id number] [facility] Interface, Rad In Fu ji Speechq - 02/25/2020 11:59 AM EST EXAMINATION: XR ABDOMEN /KUB/FLAT PLATE/1 VIEW 02/25/2020 9:42 AM HISTORY: ORDERING SYSTEM PROVIDED HISTORY: OG tube, TECHNOLOGIST PROVIDED HISTORY: Illness/Other Reason for exam: OG tube Cancer History: u Surgery, RadiationHistory: u Encounter Type: Initial Additional signs and symptoms: ORDERING SYSTEM PROVIDED DIAGNOSIS CODES: COMPARISON: None. FINDINGS: The orogastric tube along with the proximal port is in the stomach with the distal tip in the distal body of the stomach. On this limited study, there are no abnormally dilated loops of small or large bowel. There are multiple artifacts overlying the lower chest, abdomen. The visualized osseous structures are normal. There is no organomegaly or pneumoperitoneum. There is probably increased density at the left lung base probably due to small effusion, atelectasis. There is clear-appearing right lung base. IMPRESSION: 1. Orogastric tube along with the proximal port in the stomach with the distal tip in the distal body of the stomach. V/lab Workstation ID: [id number] [facility] XR CHEST PA/APon 02-25-2020 XR CHEST PA/AP EXAMINATION: XR CHEST PA/AP 02/25/2020 9:42 am HISTORY: ORDERING SYSTEM PROVIDED HISTORY: intubation, TECHNOLOGIST PROVIDED HISTORY: Illness/Other Reason for exam: intubation Cancer History: u Surgery, RadiationHistory: u Encounter Type: Initial Additional signs and symptoms: ORDERING SYSTEM PROVIDED DIAGNOSIS CODES: COMPARISON: 02/25/2020 at [facility]. TECHNIQUE: An AP portable semiupright view of the chest was obtained at 0950 hours. FINDINGS: The cardiac silhouette is satisfactory for the AP view. Trachea is midline. Endotracheal tube terminates about 3 cm above the jj. There is a bandlike area of probable atelectasis in the retrocardiac region. The remaining lung funk are clear. IMPRESSION: 1. Satisfactory endotracheal tube. 2. Bandlike linear retrocardiac density suggestive of atelectatic streaks. 3. Negative appearing chest otherwise. [facility] Workstation ID: [id number] Dictated by: FELIPE KING on Sat Feb 25, 2020 10:19:36 AM EST Transcribed by: CONCEPCION JURADO on Sat Feb 25, 2020 10:21:30 AM EST Finalized by: FELIPE KING on Sat Feb 25, 2020 10:26:22 AM EST Normal [facility] Comment on above: Order Comment: Injur y/Trauma or Illness?:Illness/Other How long have you had these symptoms (acute/chronic)?:Acute Reason for exam?:intubation History of cancer?:u Surgeries, chemotherapy, or radiation?:u Type of Exam?:Initial Additional signs and symptoms?: XR CHEST PORTABLEon 02-25-20 20 XR CHEST PORTABLE EXAM: XR CHEST KRZYSZTOF BLE HISTORY: Post intubation COMPARISON: None. TECHNIQUE: AP supine chest radiograph. FINDINGS: An endotracheal tube is in good position with its tip 3 cm above the jj. The heart, mediastinum and pulmonary vascularity are within normal limits. The lungs and pleural spaces appear clear. The bony thorax appears intact. IMPRESSION: 1. Endotracheal tube in good position. 2. No acute cardiopulmonary findings. Dictated Physician: Kenny Beatty Dictated On: 02/25/2020 03:42 Interpreted By: Kenny Beatty Transcribed By: , Signed By: Kenny Beatty Signed On: 02/25/2020 03:43 Normal [facility] XR Chest 1 Viewon 02-25-2020 EXAMINATION: XR CHES T PA/AP 02/25/2020 9:42 am HISTORY: ORDERING SYSTEM PROVIDED HISTORY: intubation, TECHNOLOGIST PROVIDED HISTORY: Illness/Other Reason for exam: intubation Cancer History: u Surgery, RadiationHistory: u Encounter Type: Initial Additional signs and symptoms: ORDERING SYSTEM PROVIDED DIAGNOSIS CODES: COMPARISON: 02/25/2020 at [facility]. TECHNIQUE: An AP portable semiupright view of the chest was obtained at 0950 hours. FINDINGS: The cardiac silhouette is satisfactory for the AP view. Trachea is midline. Endotracheal tube terminates about 3 cm above the jj. There is a bandlike area of probable atelectasis in the retrocardiac region. The remaining lung funk are clear. [facility] Interface, Rad In Fu ji Speechq - 02/25/2020 10:29 AM EST EXAMINATION: XR CHEST PA/AP 02/25/2020 9:42 am HISTORY: ORDERING SYSTEM PROVIDED HISTORY: intubation, TECHNOLOGIST PROVIDED HISTORY: Illness/Other Reason for exam: intubation Cancer History: u Surgery, RadiationHistory: u Encounter Type: Initial Additional signs and symptoms: ORDERING SYSTEM PROVIDED DIAGNOSIS CODES: COMPARISON: 02/25/2020 at [facility]. TECHNIQUE: An AP portable semiupright view of the chest was obtained at 0950 hours. FINDINGS: The cardiac silhouette is satisfactory for the AP view. Trachea is midline. Endotracheal tube terminates about 3 cm above the jj. There is a bandlike area of probable atelectasis in the retrocardiac region. The remaining lung funk are clear. IMPRESSION: 1. Satisfactory endotracheal tube. 2. Bandlike linear retrocardiac density suggestive of atelectatic streaks. 3. Negative appearing chest otherwise. LR/sheeba Workstation ID: [id number] 1. Satisfactory endotracheal tube. 2. Bandlike linear retrocardiac density suggestive of atelectatic streaks. 3. Negative appearing chest otherwise. [facility] Workstation ID: [id number] COVID-19, MOLECULARon 2019 SARS-COV-2 RNA (ALFRED) Not Detected Normal Not Detecte d [facility] Comment on above: Result Comment: This test was performed under the FDA's Emergency Use Authorization (EUA). Testing was performed using the Rosales SARS-CoV-2 assay on the [employer] Rosales REVENUE[employer]com0 System. This test has not been approved for use in asymptomatic patients and its performance in this patient population has not been evaluated. Negative results do not rule out the presence of SARS-CoV-2/COVID-19. Fact sheets for this EUA can be found at the following links: For Healthcare Providers: https://www.fda.gov/media/277622/download For Patients: https://www.fda.gov/media/799860/download Performed By: #### L [id number] #### [facility] [address] [place] [address] Onel Szymanski M.D. [id number] COVID-19, MOLECULARon 2019 SARS-COV-2 (DataGravity) Not Detected Normal Not Detected [facility] Comment on above: Result Comment: This test was performed under the FDA's Emergency Use Authorization (EUA). Testing was performed using the Simplexa SARS-CoV-2 assay (Mobile Shareholder) on the [employer] platform. This test has not been approved for use in asymptomatic patients and its performance in this patient population has not been evaluated. Negative results do not rule out the presence of SARS-CoV-2/COVID-19. Fact sheets for this EUA can be found at the following links: For Healthcare Providers: https://www.fda.gov/media/037304/download For Patients: https://www.fda.gov/media/606272/download Performed By: #### L [id number] #### [facility] [address] [place] [address] Onel Szymanski M.D. [id number] BASIC METABOLIC PANELon 09-2 Anion gap [Moles/Vol] 13 mmol/L Normal 10 - 20 [facility] Comment on above: Performed By: #### B MP ####[address] [address] Sodium [Moles/Vol] 127 mmol/L Low 136 - 145 [facility] Comment on above: Performed By: #### B MP ####[address] [address] Calcium [Mass/Vol] 8.5 mg/dL Low 8.6 - 10.3 [facility] Comment on above: Performed By: #### B MP ####[address] [address] Chloride [Moles/Vol] 100 mmol/L Normal 98 - 107 [facility] Comment on above: Performed By: #### B MP ####[address] [address] Creatinine [Mass/Vol] 0.59 mg/dL Normal 0.50 - 1.05 [facility] Comment on above: Performed By: #### B MP ####[address] [address] GFR- AM. >60 Normal >60 [facility] Comment on above: Result Comment: CALC ULATIONS OF ESTIMATED GFR ARE PERFORMED USING THE MDRD STUDY EQUATION FOR THE IDMS-TRACEABLE CREATININE METHODS. CLIN CHEM 2007;53:766-72 Performed By: #### B MP ####[address] [address] GFR-NON AM. >60 Normal >60 [facility] Comment on above: Performed By: #### B MP ####[place] [id number] Glucose [Mass/Vol] 97 mg/dL Normal 74 - 99 [facility] Comment on above: Performed By: #### B MP ####[place] [id number] HCO3 (Bld) [Moles/Vol] 18 mmol/L Low 21 - 32 [facility] Comment on above: Performed By: #### B MP ####[place] [address] Potassium [Moles/Vol] 3.7 mmol/L Normal 3.5 - 5.3 [facility] Comment on above: Performed By: #### B MP ####[place] [address] Urea nitrogen [Mass/Vol] 17 mg/dL Normal 6 - 23 [facility] Comment on above: Performed By: #### B MP ####[place] [id number] CBCon 01-03-2020 Erythrocyte distribution width (RBC) [Ratio] 13.6 % Normal 11.5 - 14.5 [facility] Comment on above: Performed By: #### C BC ####[place] [id number] Hematocrit (Bld) [Volume fraction] 35.6 % Low 36.0 - 46.0 [facility] Comment on above: Performed By: #### C BC ####[address] [address] Hemoglobin (Bld) [Mass/Vol] 12.1 g/dL Normal 12.0 - 16.0 [facility] Comment on above: Performed By: #### C BC ####[address] [address] MCHC (RBC) [Mass/Vol] 33.9 g/dL Normal 32.0 - 36.0 [facility] Comment on above: Performed By: #### C BC ####[address] [address] MCV (RBC) [Entitic vol] 94 fL Normal 80 - 100 [facility] Comment on above: Performed By: #### C BC ####[address] [address] Platelets (Bld) [#/Vol] 210 10*3/uL Normal 150 - 450 [facility] Comment on above: Performed By: #### C BC ####[address] [address] RBC 3.81 x10E12/L Low 4.00 - 5.20 [facility] Comment on above: Performed By: #### C BC ####[address] [address] WBC (Bld) [#/Vol] 2.7 10*3/uL Low 4.4 - 11.3 [facility] Comment on above: Performed By: #### C BC ####[address] [address] MAGNESIUMon 01-03-2020 Magnesium [Mass/Vol] 1.59 mg/dL Low 1.60 - 2.40 [facility] Comment on above: Performed By: #### M G ####[address] [address] Provider Note - ED v2on 12-06 Provider Note - ED v2 Provider Note - ED v2: Chart Review: ED NOTES ED NOTES: Patient is a 49-year-old female with history of RA, lupus who recently was seen by a new terminologist, she was placed on medication she thinks is given her a reaction. She reported she started getting ulcers in her mouth, she also started having diffuse muscle and joint pain for the past few days. She is unable to eat or drink due to mouth sores. She reported that she came to the ER because she was unable to deal with the pain anymore. Patient denies any fever, chills, cough, congestion, exposure to anybody sick. She denies any chest pain or shortness of breath. HISTORY OF PRESENTING ILLNESS ANA is a 49 year old Female and was seen by me at 03-Jan-2020 03:44 for a chief complaint of muscle pain (PT TO ED WITH C/O BODY ACHES AND PAINS THAT STARTED AROUND 1929 TONIGHT. TOOK TWO EXTRA STRENGTH TYLENOL WITHOUT RELIEF AROUND 2099. NO INJURY,)(1). Triage Information: Most recent Vital Sign Value Date Temp (F): 98.8 01-03-2020 03:47 Temp (C): 37.1 01-03-2020 03:47 Heart Rate (beats/min): 74 01-03-2020 03:47 Respirations (breaths/min): 20 01-03-2020 03:47 SpO2 (%): 97 01-03-2020 03:47 BP Systolic (mm Hg): 108 01-03-2020 03:47 BP Diastolic (mm Hg): 67 01-03-2020 03:47 PAST MEDICAL HISTORY ATTESTATION: I have reviewed and confirmed nurse's/medic's notes for patient's medications, allergies, medical history, and surgical history ALLERGIES/INTOLERANCES: Allergy Allergen: Amoxil Type: Drug Reaction: Unknown HEALTH HISTORY: No documented data. 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 reported anorexia Eyes: No vision loss, double vision, drainage, eye pain. ENT: No pharyngitis, dry mouth. reported mouth sores, sore throat Cardiac: No chest pain, palpitations, syncope, near syncope. Pulmonary: No shortness of breath, cough Heme/lymph: No swollen glands, fever, bleeding. GI: No abdominal pain, change in bowel habits, nausea, vomiting, diarrhea. : No discharge, dysuria, frequency, urgency, hematuria. Musculoskeletal: No, joint swelling. Diffuse muscle and joint pain Skin: No rashes. Psych: No depression, anxiety, Review of systems is otherwise negative unless stated above or in history of present illness. RESULTS/VITAL SIGNS RESULTS: Recent Lab Results: I have reviewed these laboratory results: Complete Blood Count [Drawn 03-Jan-2020 04:16:00], Basic Metabolic Panel [Drawn 03-Jan-2020 04:16:00], Magnesium, Serum [Drawn 03-Jan-2020 04:16:00]. VITAL SIGNS: T PRBP SpO2O2(LPM) %FiO2 Method 03-Jan-2020 06:13:[id number] 97 03-Jan-2020 03:47:00-37. 97 room air, no respiratory support 03-Jan-2020 03:33:00-37. 97 room air, no respiratory support PHYSICAL EXAM Image Comments: Physical Exam: Appearance: Alert, oriented , cooperative, in no acute distress. Well nourished & well hydrated. Skin: Intact, dry skin, no lesions, rash, petechiae or purpura. Eyes: PERRLA, EOMs intact, Conjunctiva pink with no redness or exudates. Cornea & anterior chamber are clear, Eyelids without lesions. No scleral icterus. ENT: Hearing grossly intact. External auditory canals patent, tympanic membranes intact with visible landmarks. Nares patent, mucus membranes moist. Dentition without lesions. Pharynx clear, uvula midline. Diffuse mouth sores Neck: Supple, without meningismus. Thyroid not palpable. Trachea at midline. No lymphadenopathy. Pulmonary: Clear bilaterally with good chest wall excursion. No rales, rhonchi or wheezing. No accessory muscle use or stridor. Cardiac: Normal S1, S2 without murmur, rub, gallop or extrasystole. Abdomen: Soft, nontender, active bowel sounds. No palpable organomegaly. No rebound or guarding. No CVA tenderness. Genitourinary: Exam deferred. Musculoskeletal: Full range of motion. no pain, edema, or deformity. Pulses full and equal. No cyanosis, clubbing, or edema. Joint edema, erythema, warmth suggesting infections Neurological: Cranial nerves II through XII are grossly intact, appropriate for age, moves all extremities normal sensation, no weakness, no focal findings identified. Psychiatric: Appropriate mood and affect. MEDICAL DECISION MAKING/ED COURSE MDM/ED COURSE: Patient felt much better after pain medications. Patient's lab work did reveal mild hyponatremia, mild hypomagnesemia. IV fluids were ordered patient has not been eating and drinkin (more content not included)... Normal [facility] Risk Screen - Adult Emergenc yon 01-03-2020 Risk Screen - Adult Emergency Preferred Language: Preferred Language: Preferred Language for Discussing Health Care (patient/designee)Maris greene Advanced Directives: Advance Directive/DNRno Family Violence Adult: Abuse Screen: Are you or have you been threatened or abused physically, emotionally, or sexually by anyoneno Learning Assessment (Patient): Learning Assessment (Patient): Patient is Able to be Assessed for Learningyes Factors Influencing Readiness to Learnacuteness of illness; interest in learning Factors that Impact Ability to Learnnone Devices/Methods Used to Communicatenone Learning Preferencesverbal instruction; written material Cultural Considerationsnone Developmental Considerationsnone Pentecostalism Considerationsnone Other Learnersspouse Learning Assessment (Other Learner): Learning Assessment (Other Learner): Other learner availableyes... Learnerspouse Factors Influencing Readiness to Learninterest in learning Factors that Impact Ability to Learnnone Devices/Methods Used to Communicatenone Learning Preferencesverbal instruction, written material Cultural Considerationsnone Developmental Considerationsnone Pentecostalism Considerationsnone Pressure Injury/TB/Substance: Pressure Injury: Do you have a coughno Admission Risk Screen: Significant IndicatorsComplete CAGE: CAGE: Is this an injured patient at a Trauma Center ([facility]/[place]/yri a/[place]): no Electronic Signatures: Deepthi Brand (RN) (Signed 03-Jan-2020 03:56) Authored: Preferred Language, Advanced Directives, Family Violence Adult, Learning Assessment (Patient), Learning Assessment (Other Learner), Pressure Injury/TB/Substance, Pressure Injury, CAGE Last Updated: 03-Jan-2020 03:56 by Deepthi Brand (RN) [facility] Triage - EDon 01-03-2020 Triage - ED Quick Triage: Are You no Have You Given In The Last 6 Weeksno Are You Currently Breastfeedingno The patient and/or guardian verbally acknowledges placement for services into the following (when Urgent Care Service hours are operating):emergency department Chart Review: PRIMARY ASSESSMENT ANA HUERTA's primary assessment is Within Defined Limits. The airway is open and patent. Breathing spontaneous and unlabored with clear breath sounds bilaterally. Circulation is normal with good peripheral pulses. Skin is warm and dry and color is normal for race. 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 TOOK TWO EXTRA STRENGTH TYLENOL WITHOUT RELIEF AROUND 2099. NO INJURY,). Triage Date/Time: 03-Jan-2020 03:33 Pain Rating (0-10): 10 = Severe Pain location: GENERALIZED Vital Signs: Temperature: 98.8F ( 37.1C) taken oral Blood Pressure: 108/67 Mean: Heart Rate: 74 Respiratory Rate: 20 Pulse Oximetry: 97% on room air, no respiratory support. Height: 5 feet 3.00 inches. 160.0 CM Weight: 138.8 pounds. Calculated 63.0 kg. (stated) Calculated BMI (kg/m2): 24.609 Calculated BSA (m2) 1.67 Daniela Coma Scale: Best Eye Response: (E4) spontaneous Best Motor Response: (M6) obeys commands Best Verbal Response: (V5) oriented Daniela Score: 15 Cough lasting greater than 3 weeks: no Patient immunocompromised related to: N/A Allergies: yes Patient has homicidal thoughts: no NICHOL: 3 Symptom Notes: . Symptoms Are POSITIVE For: pain (describe). Symptoms Are Negative For: abrasion, bleeding, bruising, deformity, difficulty bending, difficulty walking, numbness, decreased ROM and tingling. Risk Screens Suicide Risk Screen In the Past Month: Have you wished you were or wished you could go to sleep and not wake up no In the Past Month: Have you had any actual thoughts of killing yourself no In Your Lifetime: Have you ever done anything, started to do anything, or prepared to do anything to end your life no Barajas Fall Scale Screening Has the patient fallen before (or is the patient in the ED as a result of a fall) has not had a fall Does the patient have an impaired gait does not have impaired gait Is the patient cognitively impaired not cognitively impaired Interventions: Barajas Fall Interventions: LOW INTERVENTIONS: *patient oriented to surroundings and call system, * patient/family falls education completed and documented, *patients fall status communicated during bedside handoff, *whiteboard updated, *mode of toileting discussed with patient, *bed in low position with brakes locked, *call light in reach, * non-skid footwear PAST MEDICAL HISTORY Immunization History: Last Known Tetanus Immunization: Unknown TRAVEL HISTORY Travel History Coronavirus Screening: no exposure or symptoms Travel Exposure History: NO travel to International locations in the past 30 days PAIN Pain Scale Used: TYRON Pain Rating (0-10): 10 = Severe Past Medical History: Past Medical History Reviewedyes LUPUS: Past Medical History, Active RA: Past Medical History, Active Electronic Signatures: Deepthi Brand (RN) (Signed 03-Jan-2020 03:55) Entered: Risk Screens, Pain, Arrival, ABCD, Immunizations, Travel History, Chart Review, Scores, Past Medical History Authored: Quick Triage, Risk Screens, Pain, Arrival, ABCD, Immunizations, Travel History, Chart Review, Scores, Past Medical History Last Updated: 03-Jan-2020 03:55 by Deepthi Brand (RN) [facility] Carpal Tunnel Injection: Car pal Tunnelon 12-29-2019 Dasha Cummings CNP 12/29/2019 1:20 PM Carpal Tunnel Injection: Carpal Tunnel Performed by: Dasha Cummings CNP Authorized by: Dasha Cummings CNP Consent given by: Patient Time [...] the procedure well with no immediate complications [facility] XR WRIST LEFT 3+ VIEWS ([place])on 11-07-2019 XR WRIST LEFT 3+ VIEWS (STANDARD) EXAMINATION: XR WRIST LEFT 3+ VIEWS (STANDARD) HISTORY: ORDERING SYSTEM PROVIDED HISTORY: Pain, TECHNOLOGIST PROVIDED HISTORY: Illness/Other Reason for exam: bilateral wrist pain, numbness, and tingling no injury Cancer History: u Surgery, RadiationHistory: u Encounter Type: Initial Additional signs and symptoms: none ORDERING SYSTEM PROVIDED DIAGNOSIS CODES: R52 Pain COMPARISON: None. FINDINGS: Three views of the left wrist. No acute fracture. Joint alignment is anatomic. Joint spaces are preserved. Soft tissues are within normal limits. IMPRESSION: No acute osseous abnormality. ST/tde Workstation ID: [id number] Dictated by: ANIYA FONTANA on ThuNov 07, 2019 4:01:28 PM EDT Transcribed by: ASHA ROJAS on ThuNov 07, 2019 4:17:37 PM EDT Finalized by: ANIYA FONTANA on ThuNov 07, 2019 6:48:09 PM EDT [facility] Comment on above: Order Comment: Injur y/Trauma or Illness?:Illness/Other How long have you had these symptoms (acute/chronic)?:Chronic Reason for exam?:bilateral wrist pain, numbness, and tingling no injury History of cancer?:u Surgeries, chemotherapy, or radiation?:u Type of Exam?:Initial Additional signs and symptoms?:none XR WRIST RIGHT 3+ VIEWS ([place])on 11-07-2019 XR WRIST RIGHT 3+ VIEWS (STANDARD) EXAMINATION: XR WRIST RIGHT 3+ VIEWS (STANDARD) HISTORY: ORDERING SYSTEM PROVIDED HISTORY: Pain, TECHNOLOGIST PROVIDED HISTORY: Illness/Other Reason for exam: bilateral wrist pain numbness and tingling no injury Cancer History: u Surgery, RadiationHistory: u Encounter Type: Initial Additional signs and symptoms: none ORDERING SYSTEM PROVIDED DIAGNOSIS CODES: R52 Pain COMPARISON: None. FINDINGS: Three views of the right wrist. No acute fracture. Joint alignment is anatomic. Joint spaces are preserved. Soft tissues are within normal limits. IMPRESSION: No acute osseous abnormality. ST/mjr Workstation ID: [id number] Dictated by: ANIYA FONTANA on ThuNov 07, 2019 4:02:32 PM EDT Transcribed by: ROGER COMER on ThuNov 07, 2019 4:17:42 PM EDT Finalized by: ANIYA FONTANA on ThuNov 07, 2019 6:48:06 PM EDT [facility] Comment on above: Order Comment: Injur y/Trauma or Illness?:Illness/Other How long have you had these symptoms (acute/chronic)?:Chronic Reason for exam?:bilateral wrist pain numbness and tingling no injury History of cancer?:u Surgeries, chemotherapy, or radiation?:u Type of Exam?:Initial Additional signs and symptoms?:none CH50on 12-08-2017 CH50 52 unit/mL Normal [facility] Comment on above: Result Comment: No p atient age and/or gender provided Age Male Female 1 - 30 days Not Estab. Not Estab. 31 days - 6 months >32 >20 7 months - 17 years >39 >39 >17 years >41 >41 Performed At: [address] [id number] Avila Bergman PhD Ph:[phone] Performed By: #### 1 [id number] #### REBECCA Send Outs Subsection [address] [place] [address] C3on 12-05-2017 C3 Complement 81 mg/dL Normal [facility] Comment on above: Result Comment: No p atient age and/or gender provided Age Male Female 0 - 14 days 50 - 121 50 - 121 15 - 30 days 51 - 160 51 - 160 >30 days 82 - 167 82 - 167 Performed At: [address] [id number] Avila Bergman PhD Ph:[phone] Performed By: #### 2 [id number] #### REBECCA Send Outs Subsection [address] [place] [address] C4on 12-05-2017 C4 Complement 10 mg/dL Normal [facility] [facility] Comment on above: Result Comment: No p atient age and/or gender provided Age Male Female 0 - 30 days 13 - 30 14 - 28 >30 days 14 - 44 14 - 44 Performed At: [address] [id number] Avila Bergman PhD Ph:[phone] Performed By: #### 2 [id number] #### RBEECCA Send Outs Subsection [address] [place] [address] Auto Diffon 12-04-2017 Basophils #/vol (Bld) 0.0 E3/mcL Normal 0.0-0.2 [facility] Comment on above: Order Comment: Order Added by Discern Expert. Performed By: #### 2 [id number] #### REBECCA RemHemo [address] [place] [address] Basophils/100 WBC (Bld) 0.7 % Normal 0.0-2.0 [facility] Comment on above: Order Comment: Order Added by Discern Expert. Performed By: #### 2 [id number] #### REBECCA RemHemo [address] [place] [address] Eos Absolute 0.1 E3/mcL Normal 0.0-0.7 [facility] Comment on above: Order Comment: Order Added by Discern Expert. Performed By: #### 2 [id number] #### REBECCA RemHemo [address] [place] [address] Eosinophils/100 WBC (Bld) 1.3 % Normal 0.0-11.0 [facility] Comment on above: Order Comment: Order Added by Discern Expert. Performed By: #### 2 [id number] #### REBECCA RemHemo [address] [place] [address] Lymphocytes #/vol (Bld) 0.7 E3/mcL Low 1.2-3.4 [facility] Comment on above: Order Comment: Order Added by Discern Expert. Performed By: #### 2 [id number] #### REBECCA RemHemo [address] [place] [address] Lymphocytes/100 WBC (Bld) 18.1 % Low 20.0-55.0 [facility] Comment on above: Order Comment: Order Added by Discern Expert. Performed By: #### 2 [id number] #### REBECCA RemHemo [address] [place] [address] Gila Absolute 0.4 E3/mcL Normal 0.0-0.7 [facility] Comment on above: Order Comment: Order Added by Discern Expert. Performed By: #### 2 [id number] #### REBECCA RemHemo [address] [place] [address] Monocytes/100 WBC (Bld) 10.5 % High 0.0-10.0 [facility] Comment on above: Order Comment: Order Added by Discern Expert. Performed By: #### 2 [id number] #### REBECCA RemHemo [address] [place] [address] Neutro Absolute 2.6 E3/mcL Normal 1.4-6.5 [facility] Comment on above: Order Comment: Order Added by Discern Expert. Performed By: #### 2 [id number] #### REBECCA JoyceHemo [address] [place] [id number] Neutro Auto 69.4 % Normal 37.0-75.0 [facility] Comment on above: Order Comment: Order Added by Discern Expert. Performed By: #### 2 [id number] #### REBECCA Hogano [facility] [place] [id number] CBC w/ Auto Diffon 8 Erythrocyte distribution width Ratio (RBC) 12.9 % Normal 11.5-14.5 [facility] Comment on above: Performed By: #### 2 [id number] #### REBECCA Hogano [address] [place], [place] [id number] Hematocrit Volume Fraction (Bld) 38.9 % Normal 36.0-48.0 [facility] Comment on above: Performed By: #### 2 [id number] #### REBECCA JoyceHemo [address] [place] [address] Hemoglobin mass conc (Bld) 12.8 g/dL Normal 12.0-16.0 [facility] Comment on above: Performed By: #### 2 [id number] #### REBECCA Hogano [address] [place], [place] [id number] MCH Entitic mass (RBC) 32.2 pg High 27.0-31.0 [facility] Comment on above: Performed By: #### 2 [id number] #### REBECCA JoyceHemo [facility] [place] [phone] MCHC mass conc (RBC) 33.0 g/dL Normal 33.0-37.0 [facility] Comment on above: Performed By: #### 2 [id number] #### REBECCA JoyceHemo [address] [place] [address] MCV Entitic volume (RBC) 97.8 fL Normal 78.0-100.0 [facility] Comment on above: Performed By: #### 2 [id number] #### REBECCA JoyceHemo [address] [place] [address] Platelet mean volume Entitic volume (Bld) 9.4 fL Normal 7.4-11.0 [facility] Comment on above: Performed By: #### 2 [id number] #### REBECCA JoyceHemo [address] [place] [address] Platelets #/vol (Bld) 165 E3/mcL Normal 130-400 [facility] Comment on above: Performed By: #### 2 [id number] #### REBECCA JoyceHemo [address] [place] [address] RBC #/vol (Bld) 3.97 E6/mcL Normal 3.90-5.40 [facility] Comment on above: Performed By: #### 2 [id number] #### REBECCA RemHemo [address] [place] [address] WBC #/vol (Bld) 3.8 E3/mcL Normal 3.6-11.0 [facility] Comment on above: Performed By: #### 2 [id number] #### REBECCA JoyceHemo [address] [place] [address] CMPon 12-04-2017 Albumin mass conc 3.7 g/dL Normal 3.2-5.0 [facility] Comment on above: Performed By: #### 2 [id number] #### REBECCA [employer] [address] [place] [address] Albumin/Globulin mass ratio 0.9 {ratio} Low 1.1-1.9 [facility] Comment on above: Performed By: #### 2 [id number] #### REBECCA [employer] [address] [place] [address] Alk Phos 56 Int._Unit/L Normal 42-121 [facility] Comment on above: Performed By: #### 2 [id number] #### REBECCA [employer] [address] [place] [address] ALT enzyme act/vol 12 Int._Unit/L Normal 10-40 [facility] Comment on above: Performed By: #### 2 [id number] #### REBECCA [employer] [address] [place] [address] AST enzyme act/vol 22 Int._Unit/L Normal 10-42 [facility] Comment on above: Performed By: #### 2 [id number] #### REBECCA [employer] [address] [place] [address] Bili Total 0.5 mg/dL Normal 0.2-1.0 [facility] Comment on above: Performed By: #### 2 [id number] #### REBECCA [employer] [address] [place] [address] Creatinine mass conc 0.6 mg/dL Normal 0.6-1.3 [facility] Comment on above: Performed By: #### 2 [id number] #### REBECCA [employer] [address] [place] [address] Globulin mass conc (S) 4.1 g/dL High 2.0-4.0 [facility] Comment on above: Performed By: #### 2 [id number] #### REBECCA [employer] [address] [place] [address] Protein mass conc 7.8 g/dL Normal 6.4-8.3 [facility] Comment on above: Performed By: #### 2 [id number] #### REBECCA [employer] [address] [place] [address] Urea nitrogen mass conc 12 mg/dL Normal 7-18 [facility] Comment on above: Performed By: #### 2 [id number] #### REBECCA [employer] [address] [place] [address] Urea nitrogen/Creatinine mass ratio 20.0 ratio Normal 5.4-30.0 [facility] Comment on above: Performed By: #### 2 [id number] #### REBECCA [employer] [address] [place] [address] Calcium mass conc 9.1 mg/dL Normal 8.4-10.2 [facility] Comment on above: Performed By: #### 2 [id number] #### REBECCA [employer] [address] [place] [address] Chloride molar conc 105 mmol/L Normal 98-107 [facility] Comment on above: Performed By: #### 2 [id number] #### REBECCA [employer] [address] [place] [address] CO2 molar conc 27.2 mmol/L Normal 24.0-30.0 [facility] Comment on above: Performed By: #### 2 [id number] #### REBECCA [employer] [address] [place] [address] Glucose mass conc 86 mg/dL Normal 70-99 [facility] Comment on above: Performed By: #### 2 [id number] #### REBECCA [employer] [address] [place] [address] Potassium molar conc 3.7 mmol/L Normal 3.5-5.1 [facility] Comment on above: Performed By: #### 2 [id number] #### REBECCA [employer] [address] [place] [address] Sodium molar conc 138 mmol/L Normal 136-145 [facility] Comment on above: Performed By: #### 2 [id number] #### REBECCA [employer] [address] [place] [address] CRPon 12-04-2017 CRP mass conc mg/L Normal 0.00-0.75 [facility] Comment on above: Performed By: #### 2 [id number] #### REBECCA Chowdary [facility] [place] [address] eGFRon 12-04-2017 GFR/1.73 sq M predicted among non-blacks MDRD vol rate/area (S/P/Bld) mL/min/{1.73_m2} Normal [facility] Comment on above: Order Comment: Order added by Discern Expert. Performed By: #### 1 [id number] #### REBECCA Chowdary [address] [place] [address] Vital Signs Date Time Vital Sign Value Performing Clinician Facility 09-26-2024 10: Body height 161.3 cm Roosevelt Carter MD Work Phone: [facility] 09-26-2024 10:040 Body mass index (BMI) [Ratio] 26.36 kg/m2 Roosevelt Carter MD Work Phone: [facility] 09-26-2024 10: Body weight 68.58 kg Roosevelt Carter MD Work Phone: [facility] 09-26-2024 10:24040 Diastolic blood pressure 64 mm[Hg] Roosevelt Carter MD Work Phone: [phone])053-171268 [place] [address] 09-26-2024 10:24-0400 Heart rate 76 /min Roosevelt Carter MD Work Phone: [facility] 09-26-2024 10:24-0400 SaO2% (BldA) [Mass fraction] 97 % Roosevelt Carter MD Work Phone: [facility] 09-26-2024 10:24-0400 Systolic blood pressure 118 mm[Hg] Roosevelt Carter MD Work Phone: [phone] [place] [address] 09-30-2023 15:20-0400 Body height 161.3 cm [facility] 09-30-2023 15:20-0400 Body mass index (BMI) [Ratio] 25.62 kg/m2 [facility] 09-30-2023 15:20-0400 Body weight 66.67 kg [facility] 09-28-2023 09:40-0400 Body height 161.3 cm Roosevelt Cartre MD Work Phone: [phone])992-163836 [address] 09-28-2023 09:40-0400 Body mass index (BMI) [Ratio] 25.63 kg/m2 Roosevelt Carter MD Work Phone: 9(818)431-619536 [address] 09-28-2023 09:40-0400 Body weight 66.68 kg Roosevelt Carter MD Work Phone: 8(752)478-610568 [place] [address] 09-28-2023 09:40-0400 Diastolic blood pressure 74 mm[Hg] Roosevelt Carter MD Work Phone: 0(887)[phone] [place] [address] 09-28-2023 09:40-0400 Heart rate 72 /min Roosevelt Carter MD Work Phone: [facility] 09-28-2023 09:40-0400 SaO2% (BldA) [Mass fraction] 98 % Roosevelt Carter MD Work Phone: 7(262)[phone] [place] [address] 09-28-2023 09:40-0400 Systolic blood pressure 118 mm[Hg] Roosevelt Carter MD Work Phone: [facility] 11-03-2022 13:50-0400 Body height 161.3 cm Roosevelt Carter MD Work Phone: [facility] 11-03-2022 13:50-0400 Body mass index (BMI) [Ratio] 24.48 kg/m2 Roosevelt Carter MD Work Phone: [facility] 11-03-2022 13:50-0400 Body weight 63.69 kg Roosevelt Carter MD Work Phone: [facility] 11-03-2022 13:50-0400 Diastolic blood pressure 64 mm[Hg] Roosevelt Carter MD Work Phone: [facility] 11-03-2022 13:50-0400 Heart rate 74 /min Roosevelt Carter MD Work Phone: [facility] 11-03-2022 13:50-0400 SaO2% (BldA) [Mass fraction] 99 % Roosevelt Carter MD Work Phone: [phone])830-230068 [place] [address] 11-03-2022 13:50-0400 Systolic blood pressure 112 mm[Hg] Roosevelt Carter MD Work Phone: [facility] 10-02-2022 11:33-0400 Body height 161.3 cm Roosevelt Carter MD Work Phone: [facility] 10-02-2022 11:33-0400 Body mass index (BMI) [Ratio] 24.34 kg/m2 Roosevelt Carter MD Work Phone: [facility] 10-02-2022 11:33-0400 Body weight 63.32 kg Roosevelt Carter MD Work Phone: [facility] 10-02-2022 11:33-0400 Diastolic blood pressure 64 mm[Hg] Roosevelt Carter MD Work Phone: [facility] 10-02-2022 11:33-0400 Heart rate 77 /min Roosevelt Carter MD Work Phone: [facility] 10-02-2022 11:33-0400 SaO2% (BldA) [Mass fraction] 97 % Roosevelt Carter MD Work Phone: [facility] 10-02-2022 11:33-0400 Systolic blood pressure 112 mm[Hg] Roosevelt Carter MD Work Phone: [facility] 01-03-2022 11:13-0400 Body height 161.29 cm Roosevelt Carter Work Phone: [employer] [facility] Work Phone: 01-03-2022 11:13-0400 Body mass index (BMI) [Ratio] 22.5 kg/m2 Roosevelt Carter Work Phone: [employer] [facility] Work Phone: 01-03-2022 11:13-0400 Body surface area Derived from formula 1.61 m2 Roosevelt Carter Work Phone: [employer] [facility] Work Phone: 01-03-2022 11:13-0400 Body temperature 101.1 [degF] Roosevelt Carter Work Phone: [employer] [facility] Work Phone: 01-03-2022 11:13-0400 Body weight 58.54 kg Roosevelt Carter Work Phone: [employer] [facility] Work Phone: 01-03-2022 11:13-0400 Diastolic blood pressure 68 mm[Hg] Roosevelt Carter Work Phone: [employer] [facility] Work Phone: 01-03-2022 11:13-0400 Heart rate 105 /min Roosevelt Carter Work Phone: [employer] [facility] Work Phone: 01-03-2022 11:13-0400 SaO2% (BldA) [Mass fraction] 98 % Roosevelt Carter Work Phone: [facility] Work Phone: 01-03-2022 11:13-0400 Systolic blood pressure 126 mm[Hg] Roosevelt Carter Work Phone: [employer] [facility] Work Phone: 10-03-2021 08:38-0400 Body height 161.29 cm Roosevelt Carter Work Phone: [employer] [facility] Work Phone: 10-03-2021 08:38-0400 Body mass index (BMI) [Ratio] 23.44 kg/m2 Roosevelt Carter Work Phone: [employer] [facility] Work Phone: 10-03-2021 08:38-0400 Body surface area Derived from formula 1.64 m2 Roosevelt Carter Work Phone: [employer] [facility] Work Phone: 10-03-2021 08:38-0400 Body weight 60.98 kg Roosevelt Carter Work Phone: [employer] [facility] Work Phone: 10-03-2021 08:38-0400 Diastolic blood pressure 68 mm[Hg] Roosevelt Carter Work Phone: [employer] [facility] Work Phone: 10-03-2021 08:38-0400 Heart rate 67 /min Roosevelt Carter Work Phone: [employer] [facility] Work Phone: 10-03-2021 08:38-0400 SaO2% (BldA) [Mass fraction] 98 % Roosevelt Carter Work Phone: [employer] [facility] Work Phone: 10-03-2021 08:38-0400 Systolic blood pressure 110 mm[Hg] Roosevelt Carter Work Phone: [facility] Work Phone: 08-31-2020 10:59-0400 Body height 161.29 cm Roosevelt Carter Work Phone: [facility] Work Phone: 08-31-2020 10:59-0400 Body mass index (BMI) [Ratio] 25.82 kg/m2 Roosevelt Carter Work Phone: [facility] Work Phone: 08-31-2020 10:59-0400 Body surface area Derived from formula 1.71 m2 Roosevelt Carter Work Phone: [facility] Work Phone: 08-31-2020 10:59-0400 Body temperature 97.5 [degF] Roosevelt Carter Work Phone: [facility] Work Phone: 08-31-2020 10:59-0400 Body weight 67.16 kg Roosevelt Carter Work Phone: [facility] Work Phone: 08-31-2020 10:59-0400 Diastolic blood pressure 64 mm[Hg] Roosevelt Carter Work Phone: [facility] Work Phone: 08-31-2020 10:59-0400 Heart rate 100 /min Roosevelt Carter Work Phone: [facility] Work Phone: 08-31-2020 10:59-0400 SaO2% (BldA) [Mass fraction] 96 % Roosevelt Carter Work Phone: [facility] Work Phone: 08-31-2020 10:59-0400 Systolic blood pressure 112 mm[Hg] Roosevelt Carter Work Phone: [facility] Work Phone: 02-26-2020 12:00-0500 Body Temperature 97.9 [degF] Quinton Jorge [facility] 02-26-2020 12:00-0500 BP Diastolic 69 mm[Hg] [facility] 02-26-2020 12:00-0500 BP Systolic 114 mm[Hg] [facility]inton [facility] 02-26-2020 12:00-0500 Pulse (Heart Rate) 93 /min [facility]inton [facility] 02-26-2020 12:00-0500 Pulse Oximetry 96 % Quinton Jorge [facility] 02-26-2020 12:00-0500 Respiratory Rate 17 /min Quinton Jorge [facility] 02-25-2020 09:45-0500 BMI (Body Mass Index) 24.96 kg/m2 Quinton [facility] 02-25-2020 09:45-0500 Body weight 61.9 kg Quinton Jorge [facility] 02-25-2020 09:45-0500 Height 157.5 cm [facility] 2020 09:31-0500 Pulse (Heart Rate) 105 /min Evelyn Suarez [facility] 2020 09:31-0500 Pulse Oximetry 100 % Evelyn Suarez [facility] 2020 09:31-0500 Respiratory Rate 18 /min Evelyn Suarez [facility] 2020 09:14-0500 BP Diastolic 76 mm[Hg] Evelyn Suarez [facility] 2020 09:14-0500 BP Systolic 116 mm[Hg] Evelyn Suarez [facility] 2020 07:41-0500 BMI (Body Mass Index) 23.08 kg/m2 Evelyn Suarez [facility] 2020 07:41-0500 Body Temperature 97.9 [degF] Evelyn Suarez [facility] 2020 07:41-0500 Body weight 59.1 kg Evelyn Suarez [facility] 2020 07:41-0500 Height 160 cm Evelyn Suarez [facility] 11-07-2019 14:55-0400 BMI (Body Mass Index) 25.15 kg/m2 [facility] 11-07-2019 14:55-0400 Body weight 64.[address] [facility] 11-07-2019 14:55-0400 Height 160 cm Dasha [facility] Encounters Encounter Date Encounter Type Care Provider Facility Start: 09-26-2024 End: 09-26-2024 Patient encounter status Roosevelt Carter MD Work Phone: [facility] Work Phone: Start: 09-26-2024 End: 09-26-2024 Periodic preventive med est patient 40-64yrs Roosevelt Carter MD Work Phone: [facility] Comment on above: Routine general medi timmy examination at a health care facility (Primary Dx); Systemic lupus erythematosus, unspecified SLE type, unspecified organ involvement status (Multi); Rheumatoid arthritis, involving unspecified site, unspecified whether rheumatoid factor present (Multi); Encounter for screening for malignant neoplasm of colon; Motion sickness, initial encounter Start: 09-26-2024 End: 09-26-2024 ambulatory [facility] Start: 09-26-2024 End: 09-26-2024 Encounter for general adult medical examination without abnormal findings [facility] Start: 08-02-2024 End: 08-02-2024 ambulatory [facility] Facility:[facility] Start: 05-13-2024 End: 05-13-2024 ambulatory [facility] Facility:[facility] Start: 04-11-2024 End: 04-11-2024 ambulatory [facility] Facility:[facility] Start: 03-15-2024 End: 03-15-2024 ambulatory Ramon Dumont Facility:[facility] Start: 02-17-2024 End: 02-17-2024 ambulatory [facility] Facility:[facility] Start: 02-01-2024 End: 02-01-2024 ambulatory [facility] Start: 01-07-2024 End: 01-07-2024 ambulatory [facility] Facility:[facility] Start: 11-24-2023 End: 11-24-2023 ambulatory Roosevelt Lavernechava Facility:[facility] Start: 11-13-2023 End: 11-13-2023 ambulatory ROOSEVELT Watt [facility] Start: 09-30-2023 End: 09-30-2023 ambulatory ROOSEVELT Watt [facility] Start: 09-30-2023 End: 09-30-2023 Subsequent hospital visit by physician Alhaji Ware [facility] Comment on above: Encounter for screen ing mammogram for breast cancer Start: 09-28-2023 End: 09-28-2023 ambulatory ROOSEVELT Watt [facility] Start: 09-28-2023 End: 09-28-2023 Encounter for general adult medical examination without abnormal findings ROOSEVELT T [facility] Start: 09-28-2023 End: 09-28-2023 Patient encounter status Roosevelt Carter MD Work Phone: [facility] Work Phone: Start: 09-28-2023 End: 09-28-2023 Periodic preventive med est patient 40-64yrs Roosevelt Carter MD Work Phone: [facility] Comment on above: Routine general medi timmy examination at a health care facility (Primary Dx); Encounter for screening mammogram for breast cancer Start: 09-03-2023 End: 09-03-2023 ambulatory Milady Zambrano Facility:[facility] Start: 07-15-2023 End: 07-15-2023 ambulatory [facility] Work Phone: Start: 07-15-2023 End: 07-15-2023 [facility]: Start: 06-23-2023 End: 06-23-2023 ambulatory [facility] Work Phone: Start: 06-23-2023 End: 06-23-2023 Patient encounter procedure [facility] Work Phone: Start: 04-22-2023 End: 04-22-2023 ambulatory [facility] Work Phone: Start: 04-22-2023 End: 04-22-2023 Patient encounter procedure [facility] Work Phone: Start: 03-19-2023 End: 03-19-2023 ambulatory [facility] Work Phone: Start: 03-19-2023 End: 03-19-2023 Patient encounter procedure [facility] Work Phone: Start: 12-31-2022 End: 12-31-2022 ambulatory [facility] Work Phone: Start: 12-31-2022 End: 12-31-2022 Patient encounter procedure [facility] Work Phone: Start: 11-03-2022 End: 11-03-2022 Patient encounter status Roosevelt Carter MD Work Phone: [facility] Work Phone: Start: 11-03-2022 End: 11-03-2022 Periodic preventive med est patient 40-64yrs Roosevelt Carter MD Work Phone: [facility] Comment on above: Routine general medi timmy examination at a health care facility (Primary Dx) Start: 10-02-2022 End: 10-02-2022 Office outpatient visit 15 minutes Roosevelt Carter MD Work Phone: [facility] Comment on above: Hordeolum externum o f left upper eyelid (Primary Dx) Start: 09-30-2022 End: 09-30-2022 ambulatory [facility] Work Phone: Start: 09-30-2022 End: 09-30-2022 Patient encounter procedure [facility] Work Phone: Start: 08-05-2022 End: 08-05-2022 ambulatory [facility] Work Phone: Start: 08-05-2022 End: 08-05-2022 Patient encounter procedure [facility] Start: 06-03-2022 End: 06-03-2022 ambulatory [facility] Work Phone: Start: 06-03-2022 End: 06-03-2022 Patient encounter procedure [facility] Start: 03-04-2022 End: 03-04-2022 ambulatory [facility] Work Phone: Start: 03-04-2022 End: 03-04-2022 Patient encounter procedure [facility] Start: 01-15-2022 End: 01-15-2022 ambulatory [facility] Work Phone: Start: 01-15-2022 End: 01-15-2022 Patient encounter procedure [facility] Start: 01-03-2022 Office outpatient vi sit 15 minutes Roosevelt Carter Work Phone: [employer] [facility] Work Phone: Start: 01-03-2022 ambulatory ROOSEVELT CARTER Facil [id number] Start: 12-31-2021 End: 12-31-2021 ambulatory [facility] Work Phone: Start: 12-31-2021 End: 12-31-2021 Patient encounter procedure [facility] Start: 12-05-2021 End: 12-05-2021 ambulatory [facility] Work Phone: Start: 12-05-2021 End: 12-05-2021 Patient encounter procedure [facility] Start: 10-21-2021 Chart Update Roosevelt larsen Work Phone: -[facility] Work Phone: Start: 10-10-2021 AUDIT Roosevelt larsen Work Phone: [facility] Work Phone: Start: 10-03-2021 ambulatory Referral Self Facility: [id number] Start: 10-03-2021 Periodic preventive med est patient 40-64yrs Roosevelt Carter Work Phone: [facility] Work Phone: Start: 08-30-2021 End: 08-30-2021 Patient encounter procedure [facility] Start: 07-31-2021 End: 07-31-2021 Patient encounter procedure [facility] Start: 06-03-2021 End: 06-03-2021 Patient encounter procedure [facility] Start: 09-06-2020 Chart Update Roosevelt larsen Work Phone: [facility] Work Phone: Start: 08-31-2020 Periodic preventive med est patient 40-64yrs Roosevelt Carter Work Phone: [facility] [employer] [facility] Work Phone: Start: 06-13-2020 End: 06-13-2020 Orders Only Nora Elaine Burnham Work Phone: [facility] Start: 03-09-2020 End: 03-09-2020 Patient encounter procedure EVELYN KAY DANIELA [facility] Start: 03-09-2020 End: 03-09-2020 Postop follow up visit related to original px Evelyn Suarez Work Phone: [facility] Comment on above: S/P carpal tunnel re lease (Primary Dx) Start: 02-25-2020 End: 02-26-2020 Evaluation and management of inpatient ASHOK SOTOMAYOR [facility] Start: 02-25-2020 End: 02-26-2020 Evaluation and management of inpatient Quinton Jorge Work Phone: [facility] Medical Intensive [facility] Start: 02-25-2020 End: 02-25-2020 Emergency department patient visit ROOSEVELTCESARIO CARTER [facility] Start: 2020 End: 2020 Patient encounter procedure EVELYN VILLANUEVA [facility] Start: 2020 End: 2020 Subsequent hospital visit by physician Evelyn Suarez Work Phone: [facility] Comment on above: Carpal tunnel syndro me of right wrist Start: 02-20-2020 End: 02-20-2020 Patient encounter procedure EVELYN SUAREZ [facility] Start: 02-10-2020 End: 02-10-2020 Patient encounter procedure EVELYN SUAREZ [facility] Start: 02-10-2020 End: 02-10-2020 Postop follow up visit related to original px Evelyn Suarez Work Phone: [facility] Comment on above: S/P carpal tunnel re lease (Primary Dx) Start: 01-27-2020 End: 01-27-2020 Patient encounter procedure EVELYN COLE [facility] Start: 01-23-2020 End: 01-23-2020 Patient encounter procedure ROOSEVELT CARTER [facility] Start: 12-29-2019 End: 12-29-2019 Patient encounter procedure DASHA CUMMINGS [facility] Start: 12-29-2019 End: 12-29-2019 Office outpatient visit 15 minutes Dasha Cummings Work Phone: [facility] Comment on above: Carpal tunnel syndro me of right wrist (Primary Dx) Start: 12-23-2019 End: 12-23-2019 Documentation procedure Devorah Lundberg [facility] Start: 12-19-2019 End: 12-19-2019 Documentation procedure Edilia Gómez [facility] Start: 12-08-2019 End: 12-08-2019 Patient encounter procedure DASHA CUMMINGS [facility] Start: 12-08-2019 End: 12-08-2019 Patient encounter procedure Danica Dominguez Work Phone: [facility] Neurological Physicians Comment on above: Ulnar neuropathy at elbow, left (Primary Dx); Bilateral carpal tunnel syndrome Start: 11-07-2019 End: 11-11-2019 Patient encounter procedure DASHA CUMMINGS [facility] Start: 11-07-2019 End: 11-07-2019 Office outpatient new 30 minutes Dasha Cummings Work Phone: [facility] Comment on above: Bilateral carpal murali madalyn syndrome (Primary Dx) Start: 08-02-2018 End: 08-03-2018 Patient encounter procedure Jayce Pepperd Facility:[facility] Start: 07-27-2018 End: 07-28-2018 Patient encounter procedure Jayce Pepperd Facility:[facility] Start: 12-04-2017 End: 12-05-2017 Patient encounter procedure Ruben Elizondo Facility:[facility] Procedures Date Procedure Procedure Detail Performing Clinician Start: 09-30-2023 Mammography Roosevelt haley MD Work Phone: Start: 09-28-2023 Lipid 1996 panel - S kwesi or Plasma [facility] Start: 10-10-2021 Mammography Roosevelt haley MD Work Phone: Start: 02-26-2020 Basic [...] Ceballos Work Phone: Start: 02-25-2020 Radiography of vgwstm-amggyg-klhzzro Jayce Ceballos Work Phone: Start: 02-25-2020 Calcium.ionized [...] Start: 12-29-2019 Injection therapeuti c carpal tunnel Dasha Valdiviacock Work Phone: Decompression of med shane nerve Roosevelt Carter Work Phone: Finger operation Roosevelt nagy Work Phone: Kidney biopsy Roosevelt larsen Work Phone: Plan of Treatment Date Care Activity Detail Author Start: 09-27-2028 Lipid panel Lipid Panel [facility] Start: 11-12-2026 Diabetes mellitus screening Diabetes Screening [facility] Start: 09-27-2025 Yearly Adult Physical Yearly Adult [facility] Start: 09-27-2025 End: 09-27-2025 Patient encounter procedure 09/27/2025 8:00 AM EDT Office Visit [address] [phone] Roosevelt Carter MD [address] [place] [address] [facility] Start: 12-05-2024 Influenza vaccination Influenz a Vaccine (Season Ended) [facility] Start: 10-14-2024 Screening for malign ant neoplasm of colon [facility] Start: 09-29-2024 Screening for malign ant neoplasm of breast Mammogram [facility] Start: 09-28-2024 Yearly Adult Physical Yearly Adult [facility] Start: 09-26-2024 End: 09-26-2025 Basic metabolic 2000 panel - Serum or Plasma Basic Metabolic Panel Lab Routine Routine general medical examination at a health care facility Expected: 09/26/2024 (Approximate), Expires: 09/26/2025 [facility] Work Phone: Comment on above: Expected: 09/26/2024 (Approximate), Expires: 09/26/2025 Start: 09-26-2024 End: 09-26-2025 Cologuard colon cancer screening Cologuard colon cancer screening Lab Routine Encounter for screening for malignant neoplasm of colon Expected: 09/26/2024 (Approximate), Expires: 09/26/2025 [facility] Service Area Work Phone: Comment on above: Expected: 09/26/2024 (Approximate), Expires: 09/26/2025 Start: 09-26-2024 End: 09-26-2025 Hemoglobin A1c/Hemoglobin.total in Blood Hemoglobin A1C Lab Routine Routine general medical examination at a health care facility Expected: 09/26/2024 (Approximate), Expires: 09/26/2025 [facility] Work Phone: Comment on above: Expected: 09/26/2024 (Approximate), Expires: 09/26/2025 Start: 09-26-2024 End: 09-26-2025 Lipid 1996 panel - Serum or Plasma Lipid Panel Lab Routine Routine general medical examination at a health care facility Expected: 09/26/2024 (Approximate), Expires: 09/26/2025 [facility] Work Phone: Comment on above: Expected: 09/26/2024 (Approximate), Expires: 09/26/2025 Start: 12-06-2023 Influenza vaccination Influenz a Vaccine (Season Ended) [facility] Start: 11-05-2023 Yearly Adult Physical Yearly Adult P hysical [facility] Start: 09-30-2023 End: 09-30-2023 Patient encounter procedure 09/30/2023 3:15 PM EDT Appointment [facility] [address] [phone] [facility] Start: 09-28-2023 End: 09-27-2024 Cobalamin (Vitamin B12) [Mass/volume] in Serum or Plasma Vitamin B12 Lab Routine Routine general medical examination at a health care facility Expected: 09/28/2023 (Approximate), Expires: 09/27/2024 [facility] Work Phone: Comment on above: Expected: 09/28/2023 (Approximate), Expires: 09/27/2024 Start: 09-28-2023 End: 11-27-2024 DBT Breast - bilateral BI mammo bilateral screening tomosynthesis Imaging Routine Encounter for screening mammogram for breast cancer Expected: 09/28/2023, Expires: 11/27/2024 [facility] Service Area Work Phone: Comment on above: Expected: 09/28/2023 , Expires: 11/27/2024 Start: 09-28-2023 End: 09-27-2024 Lipid 1996 panel - Serum or Plasma Lipid Panel Lab Routine Routine general medical examination at a health care facility Expected: 09/28/2023 (Approximate), Expires: 09/27/2024 [facility] Work Phone: Comment on above: Expected: 09/28/2023 (Approximate), Expires: 09/27/2024 Start: 09-28-2023 End: 09-27-2024 Magnesium [Mass/volume] in Serum or Plasma Magnesium Lab Routine Routine general medical examination at a health care facility Expected: 09/28/2023 (Approximate), Expires: 09/27/2024 [facility] Work Phone: Comment on above: Expected: 09/28/2023 (Approximate), Expires: 09/27/2024 Start: 09-28-2023 End: 09-27-2024 Thyrotropin [Units/volume] in Serum or Plasma Thyroid Stimulating Hormone Lab Routine Routine general medical examination at a health care facility Expected: 09/28/2023 (Approximate), Expires: 09/27/2024 [facility] Work Phone: Comment on above: Expected: 09/28/2023 (Approximate), Expires: 09/27/2024 Start: 12-05-2022 Influenza vaccination [facility] Start: 10-10-2022 Screening for malign ant neoplasm of breast Mammogram [facility] Start: 09-14-2020 NURSEVST, Provider: PRIMARY VANNESA [facility] DEVANL1 RN 1,[id number], Status: Pen, Time: 11:00 AM NURSEVST, Provider: PRIMARY [facility] DEVAN[facility]1 RN 1,[id number], Status: Pen, Time: 11:00 AM [facility] Work Phone: Start: 03-09-2020 End: 03-09-2020 Follow-Up 03/09/2020 Follow-Up Sports Medicine Evelyn Suarez MD [address] [place] [address] [place] [address] [phone] [facility] Start: 2020 End: 2020 Hospital Encounter [facility] Comment on above: Carpal tunnel syndro me of right wrist RIGHT CARPAL TUNNEL RELEASE Start: 02-20-2020 End: 02-20-2020 Office Visit 02/20/2020 Office Visit Lab Evelyn Suarez MD [address] [place] [address] [phone] [facility] Start: 01-27-2020 End: 01-27-2020 Hospital Encounter [facility] Comment on above: Carpal tunnel syndro me of left wrist LEFT CARPAL TUNNEL R ELEASE Start: 01-23-2020 End: 01-23-2020 Office Visit 01/23/2020 Office Visit Lab Evelyn Suarez MD [address] [place] [id number] [phone] [facility] Start: 12-06-2019 Influenza vaccinatio n given Sequential Influenza Vaccine (#1) [facility] Start: 2019 Administration of he rpes zoster vaccine Zoster Vaccines (1 of 2) [facility] Start: 2019 Screening for malign ant neoplasm of colon [facility] Start: 1991 DTaP/Tdap/Td Vaccine s (1 - Tdap) DTaP/Tdap/Td Vaccines (1 - Tdap) [facility] Start: 1990 Screening for malign ant neoplasm of cervix [facility] Start: 02-25-1988 Hepatitis B Vaccines (1 of 3 - 19+ 3-dose series) Hepatitis B Vaccines (1 of 3 - 19+ 3-dose series) [facility] Start: 02-25-1988 Pneumococcal vaccination Pneum ococcal Vaccine (1 of 2 - PCV) [facility] Start: 02-25-1988 Zoster Vaccines (1 of 2) Zoste r Vaccines (1 of 2) [facility] Start: 1987 Diabetes mellitus screening Diabetes Screening [facility] Start: 1987 Hepatitis C antibody , confirmatory test Hepatitis C Screening [facility] Start: 1987 Hepatitis C screening Hepatitis C Sc reening [facility] Start: 1985 COVID-19 Vaccine (1 of 2) COVI D-19 Vaccine (1 of 2) [facility] Start: 02-25-1984 HIV screening HIV Screening [facility] Start: 1981 Adolescent depressio n screening assessment Depression Screening (PHQ9) [facility] Start: 1975 Pneumococcal Vaccine : Pediatrics (0 to 5 Years) and At-Risk Patients (6 to 64 Years) (1 - PCV) Pneumococcal Vaccine: Pediatrics (0 to 5 Years) and At-Risk Patients (6 to 64 Years) (1 - PCV) [facility] Start: 1975 Pneumococcal Vaccine : Pediatrics (0 to 5 Years) and At-Risk Patients (6 to 64 Years) (1 of 2 - PCV) Pneumococcal Vaccine: Pediatrics (0 to 5 Years) and At-Risk Patients (6 to 64 Years) (1 of 2 - PCV) [facility] Start: 1974 COVID-19 Vaccine (#1) COVID-19 Vacci ne (#1) [facility] Start: 02-25-1972 History and physical examination, annual for health maintenance Wellness Visit [facility] Start: 1970 MMR Vaccines (1 of 1 - Standard series) MMR Vaccines (1 of 1 - Standard series) [facility] Start: 1969 COVID-19 Vaccine (#1) COVID-19 Vacci ne (#1) [facility] Start: 1969 Depression screening using PHQ-9 (Patient Health Questionnaire 9) score Depression Screening (PHQ9) [facility] Start: 1969 Hepatitis B Vaccines (1 of 3 - 3-dose series) Hepatitis B Vaccines (1 of 3 - 3-dose series) [facility] Start: 1969 HIV screening HIV Screening [facility] Start: 1969 Lipid panel Lipid Panel [facility] Start: 1969 Screening for malign ant neoplasm of cervix Pap Smear [facility] Start: 1969 Screening for malign ant neoplasm of colon [facility] Start: 1969 Screening mammography Mammogram [facility] Start: 1969 Tetanus vaccination Tetanus: Every 1 0yrs [facility] Start: 1969 Yearly Adult Physical Yearly Adult P hysical [facility] End: 09-30-2023 DBT Breast - bilateral [facility] Service Area Work Phone: Comment on above: Once for 1 Occurrenc es starting 09/30/2023 until 09/30/2023 End: 11-06-2020 Electromyography EMG: Neurology Routine Bilateral carpal tunnel syndrome 1 Occurrences starting 11/07/2019 until 11/06/2020 [facility] Comment on above: 1 Occurrences starti ng 11/07/2019 until 11/06/2020 End: 11-06-2020 Nerve conduction test Nerve conduction test Neurology Routine Bilateral carpal tunnel syndrome 1 Occurrences starting 11/07/2019 until 11/06/2020 [facility] Comment on above: 1 Occurrences starti ng 11/07/2019 until 11/06/2020 Immunizations Immunization Date Immunization Notes Care Provider Jeet toledo 02-08-2014 influenza virus vaccine, whole virus Roosevelt Carter Work Phone: -[facility] Work Phone: 02-08-2014 influenza virus vaccine, unspecified formulation Roosevelt Carter MD Work Phone: [facility] Work Phone: 01-31-2013 influenza virus vaccine, whole virus Roosevelt Carter Work Phone: -[facility] Work Phone: 01-17-2009 influenza virus vaccine, whole virus Roosevelt Carter Work Phone: [facility] Work Phone: 03-13-2008 influenza virus vaccine, whole virus Roosevelt Carter Work Phone: [facility] Work Phone: 02-05-2007 influenza virus vaccine, whole virus Roosevelt Carter Work Phone: [facility] Work Phone: Payers Date Payer Category Payer Self-pay [id number] 2021 [employer] [facility] [id number] 2017 Unknown 2011 Unknown BHARATHI NURFRANNY BRANDON/PREF/HMO/PPO [id number] 2011-Present [id number] [id number]. [id number] 2011 Unknown BHARATHI BRANDON/PREF/HMO/PPO [id number] 2011-Present [id number] 1.2.840.990966.1.13.385.2. [id number] 2011 Unknown [id number] 1969 Unknown [id number] 2.16.840.1.384039.3.579.2. 717 1969 Unknown [id number] 2.16.840.1.287064.3.579.2. 717 1969 Unknown [id number] 2.16.840.1.136418.3.579.2. 717 1969 Unknown [id number] 2.16.840.1.386723.3.579.2. 903 1969 Unknown [id number] 2.16.840.1.042269.3.579.2. 903 1969 Unknown [id number] 2.16.840.1.246887.3.579.2. 900 1969 Unknown [id number] 2.16.840.1.278095.3.579.2. 900 1969 Unknown [id number] 2.16.840.1.801790.3.579.2. 900 1969 Unknown [id number] 2.16.840.1.141095.3.579.2. 556 1969 Unknown [id number] 2.16.840.1.894672.3.579.2. 903 1969 Unknown [id number] 2.16.840.1.487215.3.579.2. 903 1969 Unknown [id number] 2.16.840.1.937569.3.579.2 90 1969 Unknown [id number] 2.16.840.1.594862.3.579.2. 903 1969 Unknown [id number] 2.16.840.1.499852.3.579.2. 90 1969 Unknown [id number] 2.16.840.1.257544.3.579.2. 903 1969 Unknown [id number] 2.16.840.1.228820.3.579.2 903 1969 Unknown [id number] 2.16.840.1.992289.3.579.2. 356 1969 Unknown [id number] 2.16.840.1.283504.3.579.2. 356 1969 Unknown [id number] 2.16.840.1.672524.3.579.2. 1243 1969 Unknown [id number] 2.16840.1.420694.3.579.2. 1245 1969 Unknown [id number] 2.16.840.1.241566.3.579.2. 1245 1969 Unknown [id number] 2.16840.1.463433.3.579.2. 1245 1969 Unknown [id number] 2.16840.1.024675.3.579.2. 1244 Unknown [id number] 2.16840.1.360673.3.579.2. 462 Unknown [id number] 2.16.840.1.212584.3.579.2. 462 Unknown [id number] 2.16.840.1.783483.3.579.2. 462 Unknown [id number] 2.16840.1.542741.3.579.2. 462 Unknown [id number] 2.16840.1.185674.3.579.2. 462 Unknown [id number] 2.16840.1.291564.3.579.2. 462 Unknown [id number] 2.16840.1.438219.3.579.2. 462 Unknown [id number] 2.16840.1.075400.3.579.2. 462 Social History Date Type Detail Facility Start: 11-07-2019 End: 10-02-2022 Tobacco smoking status CAIS Never smoker [facility] Start: 11-07-2019 End: 09-26-2024 Alcohol intake Current drinker of alcohol (finding) [facility] Start: 1970 Sex Assigned At Not on file [facility] Start: 09-22-2022 End: 09-30-2023 Exposure to SARS-CoV-2 (event) Not sure [facility] Start: 12-08-2019 End: 10-02-2022 Tobacco use and exposure Never used [facility] Start: 10-02-2022 End: 09-26-2024 Non-smoker Non-smoker [facility] Work Phone: Start: 05-11-2020 End: 05-11-2020 Tobacco smoking status NHIS Unknown if ever smoked [facility] Start: 1970 Sex Assigned At Female [facility] Start: 10-02-2022 Alcohol intake Lifetime non-d judith (finding) [facility] Work Phone: Start: 10-02-2022 End: 09-26-2024 Tobacco use panel [facility] Work Phone: Start: 11-03-2022 Alcohol Comment 2 x per month [facility] Work Phone: Functional Status Date Assessment Result Facility 09-26-2024 Patient Health [facility] ionnaire 2 item (PHQ-2) [Reported] [facility] 11-13-2023 Lipoprotein insulin resistance score <25 [facility] Comment on above: Order Comment: TSH t esting is performed using different testing methodology at [facility] than at other legacy [facility]. Direct result comparisons should only be made within the same method. Result Comment: INSU YOLIE RESISTANCE MARKER <--Insulin Sensitive Insulin Resistant--> Percentile in Reference Population Insulin Resistance Score LP-IR Score Low 25th 50th 75th High <27 27 45 63 >63 LP-IR Score is inaccurate if patient is non-fasting. The LP-IR score is a laboratory developed index that has been associated with insulin resistance and diabetes risk and should be used as one component of a physician's clinical assessment. Performed By: #### 3 016-3 #### URBINA MARCELO ([id number]) [facility] ([facility]) [address] [place] [address] Clinical Notes 05-07-2019 to 09-26-2024 Roosevelt Carter MD - 09/26/2024 10:20 AM Nano Carter MD - 09/28/2023 9:40 AM Nano Carter MD - 11/03/2022 2:00 PM Nano Carter MD - 10/02/2022 11:20 AM EDT Note Date & Type Note Facility 09-26-2024 History of Present illness Narrative Subjective Patient ID: Ana Huerta is a 54 y.o. female who presents for Annual Exam (Yearly). HPI Has regular labs with otology follows her for the lupus and the rheumatoid. Sure if she needs her sugar we will do a BMP lipid and A1c today for insurance. Overall feeling okay. Mammogram 2023 Cologuard due, no melena or hematochezia no persistent abdominal pain or constipation Cologuard order today Review of Systems Constitutional: Positive for fatigue. Respiratory: Negative for shortness of breath. Cardiovascular: Negative for chest pain and palpitations. Gastrointestinal: Negative for blood in stool and constipation. Skin: Negative for rash. Neurological: Negative for headaches. Objective BP 118/64 Pulse 76 Ht 1.613 m (5' 3.5) Wt 68.6 kg (151 lb 3.2 oz) SpO2 97% BMI 26.36 kg/m Physical Exam Constitutional: Appearance: Normal appearance. HENT: Head: Normocephalic and atraumatic. Cardiovascular: Rate and Rhythm: Normal rate and regular rhythm. Heart sounds: Normal heart sounds. Pulmonary: Effort: Pulmonary effort is normal. Breath sounds: Normal breath sounds. Skin: General: Skin is warm and dry. Neurological: General: No focal deficit present. Mental Status: She is alert and oriented to person, place, and time. Psychiatric: Mood and Affect: Mood normal. Behavior: Behavior normal. Thought Content: Thought content normal. Judgment: Judgment normal. Assessment/Plan Problem List Items Addressed This Visit ICD-10-CM Rheumatoid arthritis M06.9 SLE (systemic lupus erythematosus) (Multi) M32.9 Other Visit Diagnoses Codes Routine general medical examination at a health care facility - Primary Z00.00 documented in this encounter [facility] Work Phone: 09-28-2023 History of Present illness Narrative Subjective Patient ID: Ana Huerta is a 53 y.o. female who presents for Annual Exam (C/o L thumb pain x 3 months ). HPI Following with Dr. Cardenas. CBC and CMP okay except for the white blood cell count is little bit low. She is on CellCept. Will check magnesium B12 TSH and lipids today. Continue with 4000 units of vitamin D daily. No pain in either breast no masses in either breast. Mammogram ordered Cologuard 2021 Review of Systems Constitutional: Positive for fatigue. Eyes: Negative for visual disturbance. Respiratory: Negative for cough, chest tightness and shortness of breath. Cardiovascular: Negative for chest pain and palpitations. Gastrointestinal: Negative for abdominal pain, constipation and diarrhea. Musculoskeletal: Positive for arthralgias. Skin: Negative for rash. Neurological: Negative for headaches. Objective BP 118/74 Pulse 72 Ht 1.613 m (5' 3.5) Wt 66.7 kg (147 lb) SpO2 98% BMI 25.63 kg/m Physical Exam Constitutional: Appearance: Normal appearance. HENT: Head: Normocephalic and atraumatic. Right Ear: Tympanic membrane and ear canal normal. Left Ear: Tympanic membrane and ear canal normal. Cardiovascular: Rate and Rhythm: Normal rate and regular rhythm. Heart sounds: Normal heart sounds. Pulmonary: Effort: Pulmonary effort is normal. Breath sounds: Normal breath sounds. Abdominal: General: Abdomen is flat. Palpations: Abdomen is soft. There is no mass. Tenderness: There is no abdominal tenderness. Skin: General: Skin is warm and dry. Neurological: General: No focal deficit present. Mental Status: She is alert and oriented to person, place, and time. Psychiatric: Mood and Affect: Mood normal. Behavior: Behavior normal. Thought Content: Thought content normal. Judgment: Judgment normal. Assessment/Plan Problem List Items Addressed This Visit None Visit Diagnoses Codes Routine general medical examination at a health care facility - Primary Z00.00 Relevant Orders Lipid Panel Vitamin B12 Thyroid Stimulating Hormone Magnesium Encounter for screening mammogram for breast cancer Z12.31 Relevant Orders BI mammo bilateral screening tomosynthesis documented in this encounter [facility] Work Phone: 11-03-2022 History of Present illness Narrative Subjective Patient ID: Ana Huerta is a 52 y.o. female who presents [...] is still working on finding a new terminologist. Mammogram okay 2021, every other year. Cologuard [...] 112/64 Pulse 74 Ht 1.613 m (5' 3.5) Wt 63.7 kg (140 lb 6.4 oz) [...] 10 mg tablet documented in this encounter [facility] Work Phone: 10-02-2022 History of Present illness Narrative Subjective Patient ID: Ana Huerta is a 52 y.o. female who presents for Blepharitis (LT x5days). HPI Significantly irritated stye left upper eyelid. Doxycycline for 1 week Prednisone to help as a taper for her lupus rash on her face. He is looking for a new terminologist. She will call if she needs a referral. Review of Systems Skin: Positive for rash. Objective BP 112/64 Pulse 77 Ht 1.613 m (5' 3.5) Wt 63.3 kg (139 lb 9.6 oz) [...] 5 mg tablet documented in this encounter [facility] Work Phone: 01-03-2022 History of Present illness Narrative Patient [...] any better next 2 to 3 days [facility] Work Phone: 05-07-2019 History of Present illness Narrative wellnessRenal, RHeum are following her. starting new biologic for SLE/RA.FOBT given todayMMG ok 05/2019. MMg order done today [facility] Work Phone: Evaluation note No assessment inform ation available [facility] Work Phone: Evaluation note Diagnosis Hordeolum externum of left upper eyelid- Primary documented in this encounter [facility] Work Phone: Evaluation note* Diagnosis Routine general medical examination at a health care facility- Primary documented in this encounter [facility] Work Phone: Evaluation note* Diagnosis Routine general medical examination at a health care facility- Primary Encounter for screening mammogram for breast cancer documented in this encounter [facility] Work Phone: Evaluation note* Diagnosis Encounter for screening mammogram for breast cancer documented in this encounter [facility] Work Phone: Evaluation note* Diagnosis Routine general medical examination at a health care facility- Primary Systemic lupus erythematosus, unspecified SLE type, unspecified organ involvement status (Multi) Rheumatoid arthritis, involving unspecified site, unspecified whether rheumatoid factor present (Multi) Encounter for screening for malignant neoplasm of colon Motion sickness, initial encounter documented in this encounter [facility] Work Phone: History of Present illness Narrative* wellness * MMG * cologuard * Recommend flu shot and COVID booster in the fall. But she would want to confirm that with rheumatology is ok. [facility] Work Phone: Summary Purpose Family History No Family History Records FoundUnknown Family Member Name Dates Details No pertinent [...] history: Mother, Father(V49.89, Z78.9) Status:Active Advance Directives No Advanced Directives Records FoundDocuments on File Type Date Recorded 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 Advance Directives and Living Will Documents on File Type Date Recorded 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 Advance Directives and Living Will Documents on File Type Date Recorded 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 Advance Directives and Livin g Will 01/27/2020 9:11 AM Documents on File Type Date Recorded 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 Advance Directives and Livin g Will 2020 9:11 AM Latest Code Status on File Code Status Date Activated Date Inactivated Comments Full Code 02/25/2020 9:27 AM 02/26/2020 4:33 PM Documents on File Type Date Recorded 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 Advance Directives and Livin g Will 2020 9:11 AM Latest Code Status on File Code Status Date Activated Date Inactivated Comments Full Code 02/25/2020 9:27 AM 02/26/2020 4:33 PM Reason for Referral Status Reason Specialty Diagnoses / Procedures Referred By Contact Referred To Contact Authorized Neurology Diagnoses Bilateral carpal tunnel syndrome Procedures Nerve conduction test Dasha Cummings CNP [address] [place] [address] Danica Dominguez MD [address] [place] [address] Status Reason Specialty Diagnoses / Procedures Referred By Contact Referred To Contact Authorized Neurology Diagnoses Bilateral carpal tunnel syndrome Procedures EMG: Dasha Cummings CNP [address] [place] [address] Danica Dominguez MD [address] [place] [address] Specialty Diagnoses / Procedures Referred By Shannon watt Referred To Contact Radiology Diagnoses Encounter for screening mammogram for breast cancer Procedures BI mammo bilateral screening tomosynthesis Roosevelt Carter MD [address] [place] [address] Referral ID Status Reason Start Date Expiration Date Visits Requested Visits Authorized [id number] Authorized Perform Procedure 09/28/2023 09/27/2024 1 1 History of Present Illness * Dasha Cummings, OPTOMECHANICAL ENGINEER - 11/07/2019 9:44 PM EDT [facility] [address] [facility] [address] [facility] [phone] No chief complaint on file. Ana Huerta 49 year old female presents to the office for bilateral hand and finger numbness and tingling. She has had this for the past couple of months and its not getting any better. 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 She is always on a computer and [...] Diagnosis Date Lupus (HCC) RA (rheumatoid arthritis) (HCC) Past Surgical History: Procedure Laterality Date HAND [...] file Gets together: Not on file Attends buddhist service: Not on file Active member of [...] LVM for patient to call our office. Dasha DYER CNP has reviewed her EMG . [...] from the patient. documented in this encounter* Dasha Cummings CNP - 12/29/2019 1:13 PM EDT Associated Order(s): Carpal Tunnel Injection: Carpal Tunnel Post-Procedure Diagnose(s): Carpal tunnel syndrome of right wrist Carpal Tunnel Injection: Carpal Tunnel Performed by: Dasha Cummings CNP Authorized by: Dasha Cummings CNP Consent given by: Patient Time [...] procedure well with no immediate complications * Dasha Cummings CNP - 12/29/2019 1:13 PM EDT [facility] [address] [facility] [address] [facility] [id number] Chief Complaint Patient presents with Right Wrist - Pain, Follow-up Ana Huerta returns to the office today for an [...] Diagnosis Date Lupus (HCC) RA (rheumatoid arthritis) (HCC) Past Surgical History: Procedure Laterality Date HAND [...] file Gets together: Not on file Attends buddhist service: Not on file Active member of [...] as needed. documented in this encounter* Evelyn Suarez MD - 02/10/2020 6:25 PM EST Dictation on: 02/10/2020 6:27 PM by: EVELYN SUAREZ [[id number]] documented in this encounter* Gil Carter Jr., DO - 02/26/2020 10:47 AM EST Pulmonary and Critical Care Daily Progress Note Impression and Recommendations Ana Huerta is a 50 y.o. female 1. Acute [...] status: Goals of care reviewed. Jones Carter [phone] Reason for visit/Chief complaint: Acute respiratory failure [...] GLUCOSE 160 (H) 02/26/2020 * Elaine Anderson, OPTOMECHANICAL ENGINEER - 02/26/2020 8:07 AM EST Progress Note Patient Name:Ana Huerta :1970 Admit Date: [id number] Perpetual Assessment: Ana Huerta is a 50 y.o. female with a past medical history of rheumatoidarthritis and Lupus who presented from [facility] on 02/25/2020 with tongue swelling. Pt had right carpal tunnel release surgery on 02/23 under local (lidocaine) anesthesia. Post op had complaints of tongue swelling, pain, and burning with difficulty handling secretions. Pt was intubated for airway protection 02/25/20. After receiving steroids, epi, benadryl and pepcid, she was transferred to [facility] for ongoing management of angioedema Assessment and Plan: Angioedema - Unclear etiology- lidocaine, meloxicam - Pt with tongue pain, swelling, and difficulty with secretions - received epi, pepcid, methylprednisone, and benadryl at [facility] - stop decadron and change back to home prednisone. Change benadryl to prn - discharge home later this afternoon if remains asymptomatic Acute Respiratory Failure - secondary to angioedema. Intubated for airway protection - Intubated 02/24. Vent day #2 - off sedation - passed SBT. Extubate today Carpel Tunnel - s/p Right Carpel Tunnel release surgery 02/[address] Suarez at [facility] under local anesthesia - was prescribed cipro post op but never took a dose - keep right wrist dressing intact - pain control with tylenol Rheumatoid Arthritis - Follows with a physician in [place] (family does not recall name) - on [...] Senna Antibiotics: None Lines: PIVs Tubes/Drains: None Mcgee Indication: remove mcgee 02/25 Endo: Glucose controlled, <180 Diet: regular [...] data reviewed No results for input(s): PHART, WBN6DOT, PO2ART, F4EMLTZB, RESPRATE, TIDALVOL, PEEP, M5ZNYABA in the last 72 hours. Recent Labs [...] of rash. documented in this encounter* Evelyn Suarez MD - 03/10/2020 4:52 PM EST Dictation on: 03/10/2020 4:54 PM by: EVELYN SUAREZ [[id number]] documented in this encounter* Danica Dominguez MD - 12/08/2019 9:52 AM EDT [facility] - Neurology [address] [place], [place] [id number] Nerve Conduction & EMG Report Patient: Ana Huerta Sex: Male Date of : 1970 Visit Date: 12/08/2019 08:35 Age: 49 Years Examining MD: Danica Dominguez MD Referred by: CRISTOPHER Cummings Temperature: 32.1 .Current Height: 5 feet 3 [...] Neurophysiology, Neurology, Vascular Neurology and Sleep Medicine [facility] [place] [phone] Nota bene: Portions of this chart was created using [employer] voice recognition software. 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 You will workwith your doctor and physical [...] Log into your personal health record on [email or web address] and enter N388 in the Education box to learn more about Carpal Tunnel Release: What to Expect at Home. Current as of: June 06, 2019 Content Version: 12.6 [employer]. Care instructions adapted under license by your healthcare professional. If you have questions about a medical condition or this instruction, always ask your healthcare professional. [employer] disclaims any warranty or liability for your use of this information. GENERAL POST-OPERATIVE PATIENT INSTRUCTIONS ANESTHESIA PRECAUTIONS: A responsible adult must stay with you for at least 24 hours after surgery. You may feel light headed,, dizzy, or nauseated during this time. Do not operate a vehicle (car, bike, motorcycle, family and consumer science professor) machinery or power tools. Do not make [...] to call your physician or the hospital letter sorting machine operator if you have any questions, and they will be glad to assist you. documented in this encounter* Discharge Instr - AVS First Page* Elaine Anderson, OPTOMECHANICAL ENGINEER - 02/26/2020 12:32 PM EST CHIEF COMPLAINT: [...] obtaining a primary care physician please call: [phone] MANAGING YOUR PAIN AT HOME Pain is [...] taking a prescription pain medicine, take an nhjw-ipe-ebcvmem medicine as directed such as Tylenol (Acetaminophen) [...] be sent through Care Everywhere. * Angioedema (Bermudian) documented in this encounter Hospital Course * Elaine Anderson CNP - 02/26/2020 12:36 PM EST DISCHARGE SUMMARY Patient: Ana Huerta Date of : 1970 Site: [facility] Family Provider: Roosevelt Carter MD Admit Date: 02/25/2020 Discharge Date/Time: 02/26/20 Afternoon Disposition: Home Clinical Summary Hospital Course: Ana Huerta is a 50 y.o. female with a past medical history of rheumatoid arthritis and Lupus who presented from [facility] on 02/25/2020 with tongue swelling. Pt had right carpal tunnel release surgery on 02/23 under local (lidocaine) anesthesia. Post op had complaints of tongue swelling, pain, and burning with difficulty handling secretions. Pt was intubated for airway protection 02/25/20. After receiving steroids, epi, benadryl and pepcid symptoms improved. She was /22/20. She remained asymptomatic and will be discharged home in good condition with plans for outpt follow up with her PCP and her orthopedic surgeon. Discharge Diagnoses: Angioedema - Unclear etiology- lidocaine, meloxicam - Pt with tongue pain, swelling, and difficulty with secretions - received epi, pepcid, methylprednisone, and benadryl at [facility] - stop decadron and change back to [...] Carpel Tunnel release surgery 02/[address] Suarez at [facility] under local anesthesia - was prescribed cipro post op but never took a dose - keep right wrist dressing intact - pain control with tylenol Rheumatoid Arthritis - Follows with a physician in [place] (family does not recall name) - on [...] by mouth daily . Physician(s) Family Provider: Roosevelt Catrer MD, Address: [address] [place] [address] Follow Up: Roosevelt Carter MD [address] [place] [address] Follow up in 1 week(s) Additional Information: Keep scheduled follow up with Dr. Suarez Patient instructions, including activity, were given to [...] TEST THIS MORNING AND RESULTS WERE NEGATIVE Chief Complaint and Reason for Visit Chief Complaint STANDING ORDER Chief Complaint S/O-PAIN- COPY PCP S/O-PAIN- COPY PCP Chief Complaint S/O-PAIN- COPY PCP Chief Complaint S/O-PAIN- COPY PCP PAIN- COPY PCP Chief Complaint PAIN- COPY PCP S/O- 2 ORDERS/ 2 DRS- COPY PCP Chief Complaint S/O- 2 ORDERS/ 2 DRS - COPY PCP S/O- PAIN COPY PCP Chief Complaint S/O- PAIN COPY PCP 2 DRS/ 2 ORDERS Chief Complaint 2 DRS/ 2 ORDERS STANDING ORDER FROM DR ZAMBRANO Chief Complaint STANDING ORDER FROM DR ZAMBRANO S/O-PAIN- COPY PCP Chief Complaint STANDING ORDER FROM DR ZAMBRANO S/O-PAIN- COPY PCP STANDING ORDER Chief Complaint S/O-PAIN- COPY PCP STANDING ORDER S/O- PAIN-COPY PCP Chief Complaint STANDING ORDER S/O- PAIN-COPY PCP Additional Source Comments INFORMATION SOURCE (unrecogn ized section and content) DATE CREATED AUTHOR 08/07/2018 [facility] DATE CREATED AUTHOR AUTHOR'S ORGANIZ ATION 02/27/2020 [facility] DATE CREATED AUTHOR AUTHOR'S ORGANIZ ATION 02/27/2020 [facility] DATE CREATED AUTHOR AUTHOR'S ORGANIZ ATION 03/09/2020 [facility] DATE CREATED AUTHOR AUTHOR'S ORGANIZ ATION 03/09/2020 [facility] DATE CREATED AUTHOR AUTHOR'S ORGANIZ ATION 09/09/2020 [facility] DATE CREATED AUTHOR AUTHOR'S ORGANIZ ATION 01/07/2022 [facility] DATE CREATED AUTHOR AUTHOR'S ORGANIZ ATION 01/07/2022 [facility] DATE CREATED AUTHOR AUTHOR'S ORGANIZ ATION 10/27/2023 [facility] DATE CREATED AUTHOR AUTHOR'S ORGANIZ ATION 02/07/2024 [facility] DATE CREATED AUTHOR AUTHOR'S ORGANIZ ATION 08/11/2024 [facility] DATE CREATED AUTHOR AUTHOR'S ORGANIZ ATION 09/27/2024 [facility] DATE CREATED AUTHOR AUTHOR'S ORGANIZ ATION 09/28/2024 [facility] Reason for Visit (unrecogniz ed section and content) Reason Comments Pain Follow-up Reason Comments Follow-up Suture / Staple Removal Status Reason Specialty Diagnoses / Procedures Referre d By Contact Referred To Contact Diagnoses Carpal tunnel syndrome of right wrist Carpal tunnel syndrome of right wrist [G56.01] Procedures CT REVISE MEDIAN N/CARPAL TUNNEL SURG Evelyn Suarez MD [address] [place] [address] Status Reason Specialty Diagnoses / Procedures Referre d By Contact Referred To Contact Diagnoses Respiratory failure (HCC) angioedema Reason Comments Post-op Follow-up Status Reason Specialty Diagnoses / Procedures Referre d By Contact Referred To Contact Closed Neurology Diagnoses Bilateral carpal tunnel syndrome Procedures Nerve conduction test Dasha Cummings, GEORGE [address] [place] [address] Danica Dominguez MD [address] [place] [address] Reason Comments Blepharitis LT x5days Reason Comments Wellness Reason Comments Annual Exam C/o L thumb pain x 3 months Specialty Diagnoses / Procedures Referred By Shannon watt Referred To Contact Radiology Diagnoses Encounter for screening mammogram for breast cancer Procedures BI mammo bilateral [place] [address] [place] [address] Referral ID Status Reason Start Date Expiration Date Visits Requested Visits Authorized [id number] Authorized Perform Procedure 09/28/2023 09/27/2024 1 1 Reason Comments Annual Exam Yearly Op Note - Evelyn Suarez MD - 2020 9:26 AM ESTBrief Op Note - Evelyn Suarez MD - 2020 9:26 AM ESTQuick Note - Clemencia Crawford RN - 02/26/2020 2:27 PM EST Miscellaneous Notes (unrecog nized section and content) Dictation on: 2020 9:29 AM by: EVELYN SUAREZ [[id number]] Brief Post Operative Note Patient Name: Ana Huerta : 1970 (49 y.o.) Date of Service: 2020 CSN: [id number] Procedure(s): RIGHT CARPAL TUNNEL RELEASE Pre-Operative Diagnoses: * Carpal tunnel syndrome of right wrist [G56.01] Post-Operative Diagnoses: * Same as Pre-Op Diagnosis * Carpal tunnel syndrome of right wrist [G56.01] Surgeon(s) and Role: * Evelyn Suarez MD - Primary Anesthesiologist: Greg Suarez MD SEWER AND INSPECTOR: Sushila Parada CRNA Rubber Cutter And Shape Carver: Karen Gonsalez RN Scrub Person: ST Adonis [...] 0914 Dressing Status Clean;Dry;Intact 02/24/20 0904 Evelyn Suarez MD 2020 9:26 AM documented in this encounter This RN went over AVS with patient. All questions answered. IV removed & dressing applied. Pt escorted to lobby via wheelchair. Juan called and updated on condition and plan of care. All questions answered Checked for cuff leak. Pt has a good cuff leak at this time [facility] Utilization Review Notes HISTORY OF PRESENT ILLNESS: 50 y.o. female with a past medical history that includes rheumatoid arthritis and Lupus who presented from [facility] on 02/25/2020 with tongue swelling. Pt had [...] her surgery in January. She presented to [facility] around midnight on 02/23-02/24. Pt was intubated at [facility] over concerns for airway protection. She received epi, benadryl, pepcid and steroids. She was transferred to [facility] for further management. VITAL SIGNS: On Vent: [...] received epi, pepcid, methylprednisone, and benadryl at [facility] - continue steroids, pepcid, and benadryl Acute Respiratory Failure - secondary to angioedema. Intubated for airway protection - Intubated 02/24. Vent day #1 - TV 6ml/kg, Propofol for sedation - No plans for SAT/SBT today Carpel Tunnel - s/p Right Carpel Tunnel release surgery 02/[address] Suarez at [facility] under local anesthesia - was prescribed cipro post op but never took a dose - keep right wrist dressing intact - pain control with tylenol - Dr. Suarez notified of pt admission Rheumatoid Arthritis - Follows with a physician in [place] (family does not recall name) - on [...] Regimen: Senna Antibiotics: None Lines: PIVs Tubes/Drains: Mcgee, OG Mcgee Indication: N/A placed at [facility] 02/24 Endo: Glucose controlled, <180 Diet: NPO [...] signs Every hour Maintain OG Until discontinued Mcgee catheter Continuous Cardiac monitoring Until discontinued Continuous [...] DO - 02/25/2020 1:24 PM Elaine Bah, OPTOMECHANICAL ENGINEER - 02/25/2020 9:36 AM EST H&P Notes (unrecognized sect ion and content) Pulmonary and Critical Care Admission Note Impression and Recommendations Ana Huerta is a 50 y.o. female 1. Acute respiratory failure with hypoxia 2. Upper airway compromise secondary to angioedema 3. Other medical problems as outlined Continue ventilatory support, sedation, H1 and H2 kellie, systemic steroids, ulcer prophylaxis. Hopefully can be performed in the morning. DVT Prophylaxis: Lovenox Code status: Goals of care reviewed. E Raul [phone] Reason for Admission/Chief Complaint: As above History of Presenting Illness: Ana Huerta is a 50 y.o. female with a [...] for airway control. She subsequently transferred to [facility]. Review of Systems: [] All other systems [...] Procedure: LEFT CARPAL TUNNEL RELEASE; Surgeon: Evelyn Suarez MD; Location: [facility]; Service: Orthopedic HAND SURGERY Right Family History [...] file Gets together: Not on file Attends buddhist service: Not on file Active member of [...] data reviewed No results for input(s): PHART, TWW9TYR, PO2ART, B0MNTRAK, RESPRATE, TIDALVOL, PEEP, H1KPXWHN in the last 72 hours. Recent Labs [...] of rash History and Physical Patient Name:Ana Huerta :1970 Admit Date: [id number] [facility] to take over care when transferred out of the ICU Perpetual Assessment: Ana Huerta is a 50 y.o. female with a past medical history of rheumatoid arthritis and Lupus who presented from [facility] on 02/25/2020 with tongue swelling. Pt had right carpal tunnel release surgery on 02/23 under local (lidocaine) anesthesia. Post op had complaints of tongue swelling, pain, and burning with difficulty handling secretions. Pt was intubated for airway protection 02/25/20. After receiving steroids, epi, benadryl and pepcid, she was transferred to [facility] for ongoing management of angioedema. Assessment and Plan: Angioedema - Unclear etiology- lidocaine, meloxicam - Pt with tongue pain, swelling, and difficulty with secretions - received epi, pepcid, methylprednisone, and benadryl at [facility] - continue steroids, pepcid, and benadryl Acute Respiratory Failure - secondary to angioedema. Intubated for airway protection - Intubated 02/24. Vent day #1 - TV 6ml/kg, Propofol for sedation - No plans for SAT/SBT today Carpel Tunnel - s/p Right Carpel Tunnel release surgery 02/[address] Suarez at [facility] under local anesthesia - was prescribed cipro post op but never took a dose - keep right wrist dressing intact - pain control with tylenol - Dr. Suarez notified of pt admission Rheumatoid Arthritis - Follows with a physician in [place] (family does not recall name) - on [...] Regimen: Senna Antibiotics: None Lines: PIVs Tubes/Drains: Mcgee, OG Mcgee Indication: N/A placed at [facility] 02/24 Endo: Glucose controlled, <180 Diet: NPO [...] burning, pain History of Presenting Illness: Ana Huerta is a 50 y.o. female with a past medical history that includes rheumatoid arthritis and Lupus who presented from [facility] on 02/25/2020 with tongue swelling. Pt had [...] her surgery in January. She presented to [facility] around midnight on 02/23- 02/24. Pt was intubated at [facility] over concerns for airway protection. She received epi, benadryl, pepcid and steroids. She was transferred to [facility] for further management. Review of Systems: [x] All other systems were reviewed and negative except for those as specified in History of Present illness. [] Unable to obtain ROS secondary to clinical circumstances Past Medical, Surgical, Family, and Social History: Past Medical History: Diagnosis Date Lupus (HCC) RA (rheumatoid arthritis) (HCC) Past Surgical History: Procedure Laterality Date CARPAL TUNNEL RELEASE OPEN Left 01/27/2020 Procedure: LEFT CARPAL TUNNEL RELEASE; Surgeon: Evelyn Suarez MD; Location: Main OR; Service: Orthopedic HAND SURGERY Right No family [...] file Gets together: Not on file Attends buddhist service: Not on file Active member of [...] data reviewed No results for input(s): PHART, TGL7BQK, PO2ART, [id number], RESPRATE, TIDALVOL, PEEP, A9KUATCM in the last 72 hours. No results [...] Britany Herzog - 02/25/2020 9:38 AM Juju Stein, CARLOS - 02/25/2020 9:09 AM EST ED Notes (unrecognized secti on and content) [facility] WILL BE THE RECEIVING SERVICE UPON TRANSFER FROM UNIT Patient transported to [place] by [facility]. Receiving unit notified of patient's ETA. Vital signs: BP 130/79, HR 91, RR 10, Pulse Ox 100% on VENT: FIO2 41%; A/C 10; Vt 400; PEEP 5. Chief complaint of Angioedema. Patient does have patent IV access. Propofol and NS IV gtts infusing. Patient was on brain surgeon showing NSR during transport. Patient will be transported to room [facility] on arrival. documented in this encounter Goals (unrecognized section and content) Goals may be documented in a n alternate sectionGoals may be documented in an alternate sectionGoals may be documented in an alternate sectionGoals may be documented in an alternate sectionGoals may be documented in an alternate sectionGoals may be documented in an alternate sectionGoals may be documented in an alternate sectionGoals may be documented in an alternate sectionGoals may be documented in an alternate sectionGoals may be documented in an alternate sectionGoals may be documented in an alternate sectionGoals may be documented in an alternate sectionGoals may be documented in an alternate section Care Teams (unrecognized sec tion and content) Team Status: Active Member Role Status Dates Dr. Roosevelt Carter MD Primary Care Provider Active Team Status: Inactive Member Role Status Dates Dr. Roosevelt Carter MD Primary Care Provider Active Dr. Milady Zambrano MD Attending Provider, Referring Provider Active Team Status: Inactive Member Role Status Dates Dr. Roosevelt Carter MD Primary Care Provider Active Dr. Milady Zambrano MD Attending Provider, Referring Provider Active Dr. Ramon Dumont MD Other Provider Active [employer] Consumer [employer] Professor Relationship Specialty Start Date End Date Roosevelt Carter MD [address] [place] [address] PCP - General 05/10/19 Roosevelt Carter MD [address] [facility] [place] [address] PCP - Malakoff ACO PCP 04/06/21 Family [employer] Consumer Science Professor Relationship Specialty Start Date End Date Roosevelt Carter MD [address] [facility] [place] [address] PCP - General 05/10/19 Roosevelt Carter MD [address] [place] [address] PCP - Bharathi ACO PCP 04/06/21 Team Status: Inactive Member Role Status Dates Dr. Roosevelt Carter MD Primary Care Provider Active Dr. Ramon Dumont MD Attending Provider, [facility] Provider Active Family [employer] Consumer Science Professor Relationship Specialty Start Date End Date Roosevelt Carter MD [address] [place] [id number] PCP - General 05/10/19 Roosevelt Carter MD [address] [place] [id number] PCP - Bharathi HUO PCP 04/06/21 Family [employer] Consumer Science Professor Relationship Specialty Start Date End Date Roosevelt Carter MD [address] [place] [address] PCP - General 05/10/19 Roosevelt Carter MD [address] [place] [id number] PCP - Bharathi HUO PCP 04/06/21 Family [employer] Consumer Science Professor Relationship Specialty Start Date End Date Roosevelt Carter MD [address] [address] PCP - General 05/10/19 Roosevelt Carter MD [address] [address] PCP - Bharathi ACO PCP 04/06/21 FOR RECORDS PERTAINING TO PATIENTS [...] BE BASED ON THE PRIMARY CLINICAL RECORDS. [facility]. provides no warranty or guarantee of the accuracy or completeness of information in this document.
--- OUTSIDE RECORDS SUMMARY | 2024-10-05 07:07 | XMS RPT_ITS | CCD ---
Author Organization [facility] Informat ion Partnership [facility] Care Team Providers Care Pancake Professional Name Role Phone Jayce Khan Attending Unavailable Jayce Khan Primary Care Unavailable Jayce Khan Admitting Unavailable Jayce Khan Attending Unavailable Jayce Khan Primary Care Unavailable Ruben Elizondo Admitting Unavailable Ruben Elizondo Attending Unavailable Roosevelt Carter [facility] Care Unavailable Emma Roosevelt Michael Primary Care Provider Furnchava, [facility] Primary Care Provider EVELYN SUAREZ Admitting Unavailab le DANIELA, EVELYN VILLANUEVA Attending Unavailab le FURNESS, [facility] Primary Care Unavai lable DANIELA, EVELYN VILLANUEVA Admitting Unavailab le DANIELA, EVELYN VILLANUEVA Attending Unavailab le FURNESS, [facility] Primary Care Unavai lable FURNESS, [facility] Primary Care Unavai lable DANIELA, EVELYN VILLANUEVA Admitting Unavailab le DANIELA, EVELYN VILLANUEVA Referring Unavailab le DANIELA, EVELYN VILLANUEVA Admitting Unavailab le DANIELA, EVELYN VILLANUEVA Referring Unavailab le FURNESS, [facility] Primary Care Unavai ASHOK Alvarado Referring Unavailable CORDASCOGIL Admitting Unavail able CORDASCOGIL Attending Unavail able FURNESS, [facility] Care Unavai lable FURNESS, [facility] Care Unavailable ASHOK SOTOMAYOR Attending Unavailable CUMMINGSDASHA GREGORY Referring Unavailable FURNESS, [facility] Care Unavai lable DASHA CUMMINGS Admitting Unavailable DASHA CUMMINGS Referring Unavailable FURNESS, [facility] Care DANICA Freeman Attending Unavailable CUMMINGS, DASHA POWERS Attending Unavailable FURNESS, [facility] Primary Care Unajamaal SUAREZ, EVELYN VILLANUEVA Attending Unavailab le FURNESS, [facility] Primary Care Unavai labigor SUAREZ, EVELYN VILLANUEVA Attending Unavailab le FURNESS, [facility] Primary Care Unajamaal CUMMINGS, DASHA POWERS Attending Unavailable FURNESS, [facility] Primary Care UnaDASHA Mercado Admitting Unavailable CUMMINGSDASHA Referring Unavailable FURNESS, [facility] Primary Care Unavai lable Furness, Roosevelt T Unavailable [phone] Unavailable Unavailable Self, Referral Referring Unavailable FURNESS, ROOSEVELT T Attending Unavailable FURNESS, ROOSEVELT T Primary Care Unavailable FURNESS, ROOSEVELT T Referring Unavailable FURNESS, ROOSEVELT T Attending Unavailable FURNESS, ROOSEVELT T Primary Care Unavailable Furness , Roosevelt T Primary Care Provider Furness [place] AMARAL T Unavailable FURNESS, ROOSEVELT Watt Referring [...] Furness Roosevelt AMARAL T Primary Care Provider [phone] Roosevelt Carter MD Unavailable [phone] ROOSEVELT CARTER Attending Unavailable ROOSEVELT CARTER Primary Care Unavailable Allergies Allergy Classification Reported Allergen(s) Allergy Type Date of Onset Reaction(s) Facility Lidocaine (2 sources) Lidocaine; Translations: [lidocaine] Drug Allergy Anaphylaxis -[facility] Work Phone: Macrolides (antibiotic) (2 sources) Azithromycin; Translations: [Zithromax] Drug Allergy Diarrhea, Abdominal pain -[facility] Work Phone: Penicillins (antibiotic) (2 sources) Amoxicillin; Translations: [amoxicillin] Drug Allergy Hives [facility] Work Phone: (20 sources) Amoxicillin; Translations: [amoxicillin] Drug Allergy 05-10-19 Hives, Rash, Unknown [facility] (6 sources) Azithromycin; Translations: [Zithromax] Drug Allergy Diarrhea, Abdominal pain [facility] (20 sources) Azithromycin; Translations: [AZITHROMYCIN] Drug Allergy 11-07-19 Diarrhea [facility] (13 sources) Penicillins; Translations: [PENICILLINS] Propensity to adverse reactions to drug 11-07-19 Hives [facility] (19 sources) Bee Venom Protein (Honey Bee); Translations: [BEE VENOM PROTEIN (HONEY BEE)] Propensity to adverse reactions to drug 11-07-19 Other [facility] (13 sources) Sulfamethoxazole / Trimethoprim; Translations: [SULFAMETHOXAZOLE-T RIMETHOPRIM] Drug Allergy 02-24-20 20 Itching [facility] (2 sources) Lidocaine Drug Allergy 03-10-20 20 Other (See Comments) [facility] (20 sources) Lidocaine; Translations: [lidocaine] Drug Allergy 05-10-19 Anaphylaxis [facility] (1 source) Azithromycin Drug Allergy 05-10-19 [facility] Repository (1 source) Lidocaine Drug Allergy 05-10-19 [facility] Repository Medications Current Medications Medication Drug Class(es) [...] 0 10/02/2022 10/09/2022 Active 84 hr estradiol 0.28964 mg/hr transdermal system (1 source) Estrogen Start: [...] MG PO Q12H May 10, 2020 1:00am Kimball-3 Fatty Acids-Fish Oil (13 sources) Start: 05-10-2020 Kimball-3 Fatty Acids-Fish Oil Active 1 EACH PO DAILY May 10, 2020 2:52pm Start: 05-10-2020 Kimball-3 Fatty Acids-Fish Oil Active 1 EACH PO DAILY May 10, 2020 12:00am Start: 05-10-2020 Kimball-3 Fatty Acids-Fish Oil Active 1 EACH PO [...] Drug Class(es) Dates Sig (Normalized) Sig (Original) [id number] 200 actuat albuterol 0.09 mg/actuat metered dose [...] range. Performed By: #### 1 6802, 7600, 99100 #### [facility] [address], [address] [place] [address] Tobacco Grader: Dada Hathaway MD Calcium [Mass/Vol] 8.9 mg/dL Normal 8.6-10.4 [facility] Comment on above: Performed By: #### 1 6802, 7600, 29446 #### [facility] [address], [address] [place] [address] Tobacco Grader: Dada Hathaway MD Chloride [Moles/Vol] 105 mmol/L Normal 98-110 [facility] Comment on above: Performed By: #### 1 680, 7600, 18795 #### [facility] [place] [address] Tobacco Grader: Dada Hathaway MD CO2 [Moles/Vol] 24 mmol/L Normal 20-32 [facility] Comment on above: Performed By: #### 1 680, 7600, 70840 #### [facility] [place] [address] Tobacco Grader: Dada Hathaway MD Creatinine [Mass/Vol] 0.62 mg/dL Normal 0.50-1.[address] [facility] [address] [facility] Comment on above: Performed By: #### 1 6802, 7600, 95948 #### [facility] [place] [address] Tobacco Grader: Dada Hathaway MD ELECTROLYTE BALANCE 7 mmol/L (calc) Normal 7-17 [facility] Comment on above: Performed By: #### 1 6802, 7600, 23688 #### [facility] [place] [address] Tobacco Grader: Dada Hathaway MD GFR/1.73 sq M.predicted among non-blacks MDRD (S/P/Bld) [Vol rate/Area] 105 mL/min/{1.73_m2} Normal > OR = 60 [facility] Comment on above: Performed By: #### 1 6802, 7600, 15621 #### [facility] of [address], [address] [place] [address] Tobacco Grader: Dada Hathaway MD Glucose [Mass/Vol] 83 mg/dL Normal 65-99 [facility] Comment on above: Result Comment: Fasting reference interval Performed By: #### 1 6802, 7600, 93252 #### [facility] of [address], [address] [place] [address] Tobacco Grader: Dada Hathaway MD Potassium [Moles/Vol] 4.2 mmol/L Normal 3.5-5.[address] [facility] [address] [facility] Comment on above: Performed By: #### 1 6802, 7600, 73174 #### [facility] of [address], [address] [place] [address] Tobacco Grader: Dada Hathaway MD Sodium [Moles/Vol] 136 mmol/L Normal 135-146 [facility] Comment on above: Performed By: #### 1 6802, 7600, 88431 #### [facility] [place] [address] Tobacco Grader: Dada Hathaway MD Urea nitrogen [Mass/Vol] 14 mg/dL Normal 7-25 [facility] Comment on above: Performed By: #### 1 6802, 7600, 37779 #### [facility] of [place] [address] Tobacco Grader: Dada Hathaway MD HEMOGLOBIN A1c WITH eAGon eAG (mmol/L) 6.0 mmol/L Normal [facility] Comment on above: Performed By: #### 1 6802, 7600, 56006 #### [facility] of [place] [address] Tobacco Grader: Dada Hathaway MD HbA1c (Bld) [Mass fraction] [...] diagnosis of diabetes in children. According to [place] [employer] (ADA) guidelines, hemoglobin A1c <7.0% represents optimal control in non- diabetic patients. Different metrics may apply to specific patient populations. Standards of Medical Care in Diabetes(ADA). Performed By: #### 1 6802, 7600, 79688 #### [facility] [place] [address] Tobacco Grader: Dada Hathaway MD Magnesium [Mass/Vol] 108 mg/dL Normal [facility] Comment on above: Performed By: #### 1 6802, 7600, 33081 #### [facility] [address], [address] [place] [address] Tobacco Grader: Dada Hathaway MD LIPID PANEL, [facility] 09-05 Cholesterol [Mass/Vol] 126 mg/dL Normal <200 [facility] Comment on above: Performed By: #### 1 6802, 7600, 09214 #### [facility] [address], [address] [place] [address] Tobacco Grader: Dada Hathaway MD Cholesterol in HDL [Mass/Vol] 64 mg/dL Normal > OR = 50 [facility] Comment on above: Performed By: #### 1 6802, 7600, 98067 #### [facility] [place] [address] Tobacco Grader: Dada Hathaway MD Cholesterol in LDL [Mass/Vol] [...] LDL-C. Thomas SS et al. KEVIN. 2013;310(19): 4987-7194 (http://education.StickyADS.tv.Celaton/faq/ELZ439) Performed By: #### 1 6802, 7600, 73849 #### [facility] [address], [address] [place] [address] Tobacco Grader: Dada Hathaway MD Cholesterol.total/Stefani sterol in HDL [Mass ratio] 2.0 {ratio} Normal <5.0 [facility] Comment on above: Performed By: #### 1 6802, 7600, 90549 #### [facility] [address], [address] [place] [address] Tobacco Grader: Dada Hathaway MD NON HDL CHOLESTEROL 62 mg/dL (calc) Normal <130 [facility] Comment on above: Result Comment: For patients with diabetes plus 1 major ASCVD risk factor, treating to a non-HDL-C goal of <100 mg/dL (LDL-C of <70 mg/dL) is considered a therapeutic option. Performed By: #### 1 6802, 7600, 63082 #### [facility] [address], [address] [place] [address] Tobacco Grader: Dada Hathaway MD Triglyceride [Mass/Vol] 47 mg/dL Normal <150 [facility] Comment on above: Performed By: #### 1 6802, 7600, 62837 #### [facility] [place] [address] Tobacco Grader: Dada Hathaway MD Anti-dsDNA Abon 08-03-2024 ANTI-DNA (DS)AB 26 IU/mL Abnormal 0-9 [facility] Comment on above: Result Comment: Nega tive <5 Equivocal 5 - 9 Positive >9 Performed at: [address] [id number] Sales Force Developer: Pacheco Gramajo PhD, Phone: [phone] Performed By: #### L 500.4050, L3100.5700, L400.2010, L3100.5500, L501.0900, L100.0100, L3100.5800 #### [facility] [address] [place], [address] Complement C3on 08-03-2024 COMP C3 72 mg/dL Low 82-167 [facility] Comment on above: Result Comment: Perf ormed at: [facility] [id number] Sales Force Developer: Pacheco Gramajo PhD, Phone: [phone] Performed By: #### L 500.4050, L3100.5700, L4, L3100.5500, L501.0900, L100.0100, L3100.5800 #### [facility] [address] [place], [place], [id number] [phone] Complement C4on 08-03-2024 COMPLEMENT, C4 9 mg/dL Low 12-38 [facility] Comment on above: Performed By: #### L 500.4050, L3100.5700, L4.2010, L3100.5500, L501.0900, L100.0100, L3100.5800 #### [facility] [address] [place], [address] CBC W/Diff, Automatedon 04- Absolute Lymph 1.01 X10 3/uL Normal 0.83-4.51 [facility] Comment on above: Performed By: #### L 500.4050, L3100.5700, L400.2010, L3100.5500, L501.0900, L100.0100, L3100.5800 #### [facility] [address] [place], [address] Absolute Neut 1.4 X10 3/uL Low 2.0-7.7 [facility] Comment on above: Performed By: #### L 500.4050, L3100.5700, L400.2010, L3100.5500, L501.0900, L100.0100, L3100.5800 #### [facility] [address] [place], [address] Basophils/100 WBC (Bld) 1.0 % Normal 0-1 [facility] Comment on above: Performed By: #### L 500.4050, L3100.5700, L400.2010, L3100.5500, L501.0900, L100.0100, L3100.5800 #### [facility] [address] [place], [address] Eosinophils/100 WBC (Bld) 4.1 % Normal 0-5 [facility] Comment on above: Performed By: #### L 500.4050, L3100.5700, L400.2010, L3100.5500, L501.0900, L100.0100, L3100.5800 #### [facility] [address] [place], [address] Erythrocyte distribution width (RBC) [Ratio] 12.1 % Normal 11.6-14.6 [facility] Comment on above: Performed By: #### L 500.4050, L3100.5700, L400.2010, L3100.5500, L501.0900, L100.0100, L3100.5800 #### [facility] [address] [place], [address] Hematocrit (Bld) [Volume fraction] 38.7 % Normal 37-47 [facility] Comment on above: Performed By: #### L 500.4050, L3100.5700, L400.2010, L3100.5500, L501.0900, L100.0100, L3100.5800 #### [facility] [address] [place], [address] Hemoglobin (Bld) [Mass/Vol] 12.7 g/dL Normal 12.0-15.0 [facility] Comment on above: Performed By: #### L 500.4050, L3100.5700, L400.2011, L3100.5500, L501.0900, L100.0100, L3100.5800 #### [facility] [address] [place], [address] IG% 0.000 Normal 0.0-0.9 [facility] Comment on above: Result Comment: IG% - Immature Granulocytes (promyelocytes, myelocytes and metamyelocytes) > 1% indicates that a LEFT SHIFT is Present. Performed By: #### L 500.4050, L3100.5700, L400.2010, L3100.5500, L501.0900, L100.0100, L3100.5800 #### [facility] [address] [place], [address] Lymphocytes/100 WBC (Bld) 34.7 % Normal 19-41 [facility] Comment on above: Performed By: #### L 500.4050, L3100.5700, L400.2010, L3100.5500, L501.0900, L100.0100, L3100.5800 #### [facility] [address] [place], [address] MCH (RBC) [Entitic mass] 32.0 pg Normal 27.0-32.0 [facility] Comment on above: Performed By: #### L 500.4050, L3100.5700, L400.2010, L3100.5500, L501.0900, L100.0100, L3100.5800 #### [facility] [address] [place], [address] MCHC (RBC) [Mass/Vol] 32.8 g/dL Normal 32-36 [facility] Comment on above: Performed By: #### L 500.4050, L3100.5700, L400.2010, L3100.5500, L501.0900, L100.0100, L3100.5800 #### [facility] [address] [place], [address] MCV (RBC) [Entitic vol] 97.5 fL Normal 81-99 [facility] Comment on above: Performed By: #### L 500.4050, L3100.5700, L400.2011, L3100.5500, L501.0900, L100.0100, L3100.5800 #### [facility] [address] [place], [address] Monocytes/100 WBC (Bld) 12.4 % High 0-10 [facility] Comment on above: Performed By: #### L 500.4050, L3100.5700, L400.2010, L3100.5500, L501.0900, L100.0100, L3100.5800 #### [facility] [address] [place], [address] Neutrophils/100 WBC (Bld) 47.8 % Normal 47-70 [facility] Comment on above: Performed By: #### L 500.4050, L3100.5700, L400.2010, L3100.5500, L501.0900, L100.0100, L3100.5800 #### [facility] [address] [place], [address] Nucleated RBC (Bld) [#/Vol] 0 10*3/uL Normal 0-5 [facility] Comment on above: Performed By: #### L 500.4050, L3100.5700, L400.2010, L3100.5500, L501.0900, L100.0100, L3100.5800 #### [facility] [address] [place], [address] Platelet mean volume (Bld) [Entitic vol] 10.9 fL Normal 6.2-12.0 [facility] Comment on above: Performed By: #### L 500.4050, L3100.5700, L400.2010, L3100.5500, L501.0900, L100.0100, L3100.5800 #### [facility] [address] [place], [address] Platelets (Bld) [#/Vol] 158 10*3/uL Normal 150-450 [facility] Comment on above: Performed By: #### L 500.4050, L3100.5700, L400.2011, L3100.5500, L501.0900, L100.0100, L3100.5800 #### [facility] [address] [place], [address] RBC (Bld) [#/Vol] 3.97 10*6/uL Low 4.2-5.4 [facility] Comment on above: Performed By: #### L 500.4050, L3100.5700, L400.2010, L3100.5500, L501.0900, L100.0100, L3100.5800 #### [facility] [address] [place], [address] RDW SD 44.1 fl High 35.1-43.9 [facility] Comment on above: Performed By: #### L 500.4050, L3100.5700, L400.2010, L3100.5500, L501.0900, L100.0100, L3100.5800 #### [facility] [address] [place], [address] WBC (Bld) [#/Vol] 2.9 10*3/uL Low 4.4-11.0 [facility] Comment on above: Performed By: #### L 500.4050, L3100.5700, L400.2010, L3100.5500, L501.0900, L100.0100, L3100.5800 #### [facility] [address] [place], [address] Comprehensive Metabolic Prof [facility] 08-02-2024 Albumin [Mass/Vol] 3.9 g/dL Normal 3.5-5.0 [facility] Comment on above: Performed By: #### L 500.4050, L3100.5700, L400.2010, L3100.5500, L501.0900, L100.0100, L3100.5800 #### [facility] [address] [place], [address] Albumin/Globulin [Mass ratio] 1.5 {ratio} Normal 0.9-2.4 [facility] Comment on above: Performed By: #### L 500.4050, L3100.5700, L400.2010, L3100.5500, L501.0900, L100.0100, L3100.5800 #### [facility] [address] [place], [address] ALK PHOS 56 U/L Normal 35-104 [facility] Comment on above: Performed By: #### L 500.4050, L3100.5700, L400.2010, L3100.5500, L501.0900, L100.0100, L3100.5800 #### [facility] [address] [place], [address] ALT [Catalytic activity/Vol] 14 U/L Normal <=34 [facility] Comment on above: Performed By: #### L 500.4050, L3100.5700, L400.2010, L3100.5500, L501.0900, L100.0100, L3100.5800 #### [facility] [address] [place], [address] AST [Catalytic activity/Vol] 26 U/L Normal <=31 [facility] Comment on above: Performed By: #### L 500.4050, L3100.5700, L400.2010, L3100.5500, L501.0900, L100.0100, L3100.5800 #### [facility] [address] [place], [address] Bilirubin [Mass/Vol] 0.29 mg/dL Normal 0.00-1.30 [facility] Comment on above: Performed By: #### L 500.4050, L3100.5700, L400.2011, L3100.5500, L501.0900, L100.0100, L3100.5800 #### [facility] [address] [place], [address] BUN/CRE 17.1 RATIO Normal 10-20 [facility] Comment on above: Performed By: #### L 500.4050, L3100.5700, L400.2010, L3100.5500, L501.0900, L100.0100, L3100.5800 #### [facility] [address] [place], [address] Calcium [Mass/Vol] 8.9 mg/dL Normal 7.6-11.0 [facility] Comment on above: Performed By: #### L 500.4050, L3100.5700, L400.2010, L3100.5500, L501.0900, L100.0100, L3100.5800 #### [facility] [address] [place], [address] Chloride [Moles/Vol] 104 mmol/L Normal 98-108 [facility] Comment on above: Performed By: #### L 500.4050, L3100.5700, L400.2010, L3100.5500, L501.0900, L100.0100, L3100.5800 #### [facility] [address] [place], [address] CO2 [Moles/Vol] 22.5 mmol/L Normal 21.0-32.0 [facility] Comment on above: Performed By: #### L 500.4050, L3100.5700, L400.2010, L3100.5500, L501.0900, L100.0100, L3100.5800 #### [facility] [address] [place], [address] Creatinine [Mass/Vol] 0.76 mg/dL Normal 0.70-1.20 [facility] Comment on above: Performed By: #### L 500.4050, L3100.5700, L400.2011, L3100.5500, L501.0900, L100.0100, L3100.5800 #### [facility] [address] [place], [address] GAP 11 Normal 5-15 [facility] Comment on above: Performed By: #### L 500.4050, L3100.5700, L400.2010, L3100.5500, L501.0900, L100.0100, L3100.5800 #### [facility] [address] [place], [address] GFR/1.73 sq M.predicted among non-blacks MDRD (S/P/Bld) [Vol rate/Area] 92 mL/min/{1.73_m2} Normal >60 [facility] Comment on above: Result Comment: mL/m in/1.73m2 CKD-EPI Creatinine Equation (2020) Performed By: #### L 500.4050, L3100.5700, L400.2010, L3100.5500, L501.0900, L100.0100, L3100.5800 #### [facility] [address] [place], [address] Globulin (S) [Mass/Vol] 2.7 g/dL Normal 2.2-4.2 [facility] Comment on above: Performed By: #### L 500.4050, L3100.5700, L400.2010, L3100.5500, L501.0900, L100.0100, L3100.5800 #### [facility] [address] [place], [address] Glucose [Mass/Vol] 81 mg/dL Normal 70-99 [facility] Comment on above: Performed By: #### L 500.4050, L3100.5700, L400.2010, L3100.5500, L501.0900, L100.0100, L3100.5800 #### [facility] [address] [place], [address] Potassium [Moles/Vol] 4.2 mmol/L Normal 3.3-5.1 [facility] Comment on above: Performed By: #### L 500.4050, L3100.5700, L400.2010, L3100.5500, L501.0900, L100.0100, L3100.5800 #### [facility] [address] [place], [address] Sodium [Moles/Vol] 137 mmol/L Normal 133-145 [facility] Comment on above: Performed By: #### L 500.4050, L3100.5700, L400.2010, L3100.5500, L501.0900, L100.0100, L3100.5800 #### [facility] [address] [place], [address] T PROT 6.6 g/dL Normal 5.9-8.4 [facility] Comment on above: Performed By: #### L 500.4050, L3100.5700, L400.2010, L3100.5500, L501.0900, L100.0100, L3100.5800 #### [facility] [address] [place], [address] Urea nitrogen [Mass/Vol] 13 mg/dL Normal 4-19 [facility] Comment on above: Performed By: #### L 500.4050, L3100.5700, L400.2010, L3100.5500, L501.0900, L100.0100, L3100.5800 #### [facility] [address] [place], [address] Protein+Creatinine Ratio,Uri neon 08-02-2024 PROT:CRE RATIO 100 mg/g CRE Normal 0-200 [facility] Comment on above: Performed By: #### L 500.4050, L3100.5700, L400.2011, L3100.5500, L501.0900, L100.0100, L3100.5800 #### [facility] [address] [place], [address] Protein (U) [Mass/Vol] 8.9 mg/dL Normal 0.0-12.[address] [facility] Comment on above: Performed By: #### L 500.4050, L3100.5700, L400.2010, L3100.5500, L501.0900, L100.0100, L3100.5800 #### [facility] [address] [place], [address] UR CREAT 88.50 mg/dL Normal 28.00-217.00 [facility] Comment on above: Performed By: #### L 500.4050, L3100.5700, L400.2010, L3100.5500, L501.0900, L100.0100, L3100.5800 #### [facility] [address] [place], [address] Urinalysis, Routine (Dipstic k)on 08-02-2024 BILIRUBIN URINE Negative Normal Negative [facility] Comment on above: Order Comment: Urine , Random Performed By: #### L 500.4050, L3100.5700, L400.2010, L3100.5500, L501.0900, L100.0100, L3100.5800 #### [facility] [address] [place], [address] Clarity (U) Clear Normal Clear [facility] Comment on above: Order Comment: Urine , Random Performed By: #### L 500.4050, L3100.5700, L400.2010, L3100.5500, L501.0900, L100.0100, L3100.5800 #### [facility] [address] [place], [address] Color (U) Yellow Normal Yellow [facility] Comment on above: Order Comment: Urine , Random Performed By: #### L 500.4050, L3100.5700, L400.2011, L3100.5500, L501.0900, L100.0100, L3100.5800 #### [facility] Laboratory [address] [place], [address] GLUCOSE, UR Normal Normal Normal [facility] Comment on above: Order Comment: Urine , Random Performed By: #### L 500.4050, L3100.5700, L400.2010, L3100.5500, L501.0900, L100.0100, L3100.5800 #### [facility] [address] [place], [address] KETONE UR Negative Normal Negative [facility] Comment on above: Order Comment: Urine , Random Performed By: #### L 500.4050, L3100.5700, L400.2010, L3100.5500, L501.0900, L100.0100, L3100.5800 #### [facility] [address] [place], [address] LEUK ESTERASE Negative Normal Negative [facility] Comment on above: Order Comment: Urine , Random Performed By: #### L 500.4050, L3100.5700, L400.2010, L3100.5500, L501.0900, L100.0100, L3100.5800 #### [facility] [address] [place], [address] Nitrite Ql (U) Negative Normal Negative [facility] Comment on above: Order Comment: Urine , Random Performed By: #### L 500.4050, L3100.5700, L400.2010, L3100.5500, L501.0900, L100.0100, L3100.5800 #### [facility] [address] [place], [address] OCCULT BLOOD-UR Negative Normal Negative [facility] Comment on above: Order Comment: Urine , Random Performed By: #### L 500.4050, L3100.5700, L400.2010, L3100.5500, L501.0900, L100.0100, L3100.5800 #### [facility] [address] [place], [address] pH UR 7.0 Normal 5.0 - 8.0 [facility] Comment on above: Order Comment: Urine , Random Performed By: #### L 500.4050, L3100.5700, L400.2010, L3100.5500, L501.0900, L100.0100, L3100.5800 #### [facility] [address] [place], [address] PROT DIPSTX 15 mg/dl Abnormal Negative [facility] Comment on above: Order Comment: Urine , Random Performed By: #### L 500.4050, L3100.5700, L400.2010, L3100.5500, L501.0900, L100.0100, L3100.5800 #### [facility] [address] [place], [address] SP.GR. DIPSTX 1.010 Normal 1.002-1.030 [facility] Comment on above: Order Comment: Urine , Random Performed By: #### L 500.4050, L3100.5700, L400.2010, L3100.5500, L501.0900, L100.0100, L3100.5800 #### [facility] [address] [place], [address] UROBILI Normal Normal Normal [facility] Comment on above: Order Comment: Urine , Random Performed By: #### L 500.4050, L3100.5700, L400.2010, L3100.5500, L501.0900, L100.0100, L3100.5800 #### [facility] [address] [place], [place], [id number] Anti-dsDNA Abon 05-16-2024 ANTI-DNA (DS)AB 30 IU/mL Abnormal 0-9 [facility] Comment on above: Result Comment: Nega tive <5 Equivocal 5 - 9 Positive >9 Performed at: [facility] [employer] [id number] Sales Force Developer: Pacheco Gramajo PhD, Phone: [phone] Performed By: #### L 500.4050, L3100.5700, L400.2010, L3100.5500, L501.0900, L100.0100, L3100.5800 #### [facility] [address] [place], [place], [id number] [phone] Complement C3on 05-14-2024 COMP C3 82 mg/dL Normal 82-167 [facility] Comment on above: Result Comment: Perf ormed at: [address] [id number] Sales Force Developer: Pacheco Gramajo PhD, Phone: [phone] Performed By: #### L 500.4050, L3100.5700, L400.2010, L3100.5500, L501.0900, L100.0100, L3100.5800 #### [facility] [address] [place], [place], [id number] [phone] Complement C4on 05-14-2024 COMPLEMENT, C4 10 mg/dL Low 12-38 [facility] Comment on above: Performed By: #### L 500.4050, L3100.5700, L400.2010, L3100.5500, L501.0900, L100.0100, L3100.5800 #### [facility] [address] [place], [address] CBC W/Diff, Automatedon Absolute Lymph 0.90 X10 3/uL Normal 0.83-4.51 [facility] Comment on above: Performed By: #### L 3100.5800, L400.2010, L3100.5700, L500.4050, L501.0900, L100.0100, L3100.5500 #### [facility] [address] [place], [address] Absolute Neut 1.5 X10 3/uL Low 2.0-7.7 [facility] Comment on above: Performed By: #### L 3100.5800, L400.2010, L3100.5700, L500.4050, L501.0900, L100.0100, L3100.5500 #### [facility] [address] [place], [address] Basophils/100 WBC (Bld) 1.0 % Normal 0-1 [facility] Comment on above: Performed By: #### L 3100.5800, L4.2010, L3100.5700, L500.4050, L501.0900, L100.0100, L3100.5500 #### [facility] [address] [place], [address] Eosinophils/100 WBC (Bld) 2.4 % Normal 0-5 [facility] Comment on above: Performed By: #### L 3100.5800, L4.2010, L3100.5700, L500.4050, L501.0900, L100.0100, L3100.5500 #### [facility] [address] [place], [address] Erythrocyte distribution width (RBC) [Ratio] 12.7 % Normal 11.6-14.6 [facility] Comment on above: Performed By: #### L 3100.5800, L400.2010, L3100.5700, L500.4050, L501.0900, L100.0100, L3100.5500 #### [facility] [address] [place], [address] Hematocrit (Bld) [Volume fraction] 41.6 % Normal 37-47 [facility] Comment on above: Performed By: #### L 3100.5800, L400.2010, L3100.5700, L500.4050, L501.0900, L100.0100, L3100.5500 #### [facility] [address] [place], [address] Hemoglobin (Bld) [Mass/Vol] 13.2 g/dL Normal 12.0-15.0 [facility] Comment on above: Performed By: #### L 3100.5800, L400.2010, L3100.5700, L500.4050, L501.0900, L100.0100, L3100.5500 #### [facility] [address] [place], [address] IG% 0.000 Normal 0.0-0.9 [facility] Comment on above: Result Comment: IG% - Immature Granulocytes (promyelocytes, myelocytes and metamyelocytes) > 1% indicates that a LEFT SHIFT is Present. Performed By: #### L 3100.5800, L400.2010, L3100.5700, L500.4050, L501.0900, L100.0100, L3100.5500 #### [facility] [address] [place], [address] Lymphocytes/100 WBC (Bld) 31.4 % Normal 19-41 [facility] Comment on above: Performed By: #### L 3100.5800, L400.2010, L3100.5700, L500.4050, L501.0900, L100.0100, L3100.5500 #### [facility] [address] [place], [address] MCH (RBC) [Entitic mass] 31.7 pg Normal 27.0-32.0 [facility] Comment on above: Performed By: #### L 3100.5800, L400.2010, L3100.5700, L500.4050, L501.0900, L100.0100, L3100.5500 #### [facility] [address] [place], [address] MCHC (RBC) [Mass/Vol] 31.7 g/dL Low 32-36 [facility] Comment on above: Performed By: #### L 3100.5800, L400.2010, L3100.5700, L500.4050, L501.0900, L100.0100, L3100.5500 #### [facility] [address] [place], [address] MCV (RBC) [Entitic vol] 99.8 fL High 81-99 [facility] Comment on above: Performed By: #### L 3100.5800, L4.2010, L3100.5700, L500.4050, L501.0900, L100.0100, L3100.5500 #### [facility] [address] [place], [address] Monocytes/100 WBC (Bld) 11.8 % High 0-10 [facility] Comment on above: Performed By: #### L 3100.5800, L400.2010, L3100.5700, L500.4050, L501.0900, L100.0100, L3100.5500 #### [facility] [address] [place], [address] Neutrophils/100 WBC (Bld) 53.4 % Normal 47-70 [facility] Comment on above: Performed By: #### L 3100.5800, L400.2010, L3100.5700, L500.4050, L501.0900, L100.0100, L3100.5500 #### [facility] [address] [place], [address] Nucleated RBC (Bld) [#/Vol] 0 10*3/uL Normal 0-5 [facility] Comment on above: Performed By: #### L 3100.5800, L400.2010, L3100.5700, L500.4050, L501.0900, L100.0100, L3100.5500 #### [facility] [address] [place], [address] Platelet mean volume (Bld) [Entitic vol] 11.2 fL Normal 6.2-12.0 [facility] Comment on above: Performed By: #### L 3100.5800, L400.2010, L3100.5700, L500.4050, L501.0900, L100.0100, L3100.5500 #### [facility] [address] [place], [address] Platelets (Bld) [#/Vol] 180 10*3/uL Normal 150-450 [facility] Comment on above: Performed By: #### L 3100.5800, L4.2010, L3100.5700, L500.4050, L501.0900, L100.0100, L3100.5500 #### [facility] [address] [place], [address] RBC (Bld) [#/Vol] 4.17 10*6/uL Low 4.2-5.4 [facility] Comment on above: Performed By: #### L 3100.5800, L4.2010, L3100.5700, L500.4050, L501.0900, L100.0100, L3100.5500 #### [facility] [address] [place], [address] RDW SD 46.4 fl High 35.1-43.9 [facility] Comment on above: Performed By: #### L 3100.5800, L400.2010, L3100.5700, L500.4050, L501.0900, L100.0100, L3100.5500 #### [facility] [address] [place], [address] WBC (Bld) [#/Vol] 2.9 10*3/uL Low 4.4-11.0 [facility] Comment on above: Performed By: #### L 3100.5800, L400.2010, L3100.5700, L500.4050, L501.0900, L100.0100, L3100.5500 #### [facility] [address] [place], [address] Comprehensive Metabolic Prof ilon 05-13-2024 Albumin [Mass/Vol] 3.7 g/dL Normal 3.2-5.0 [facility] Comment on above: Performed By: #### L 3100.5800, L400.2010, L3100.5700, L500.4050, L501.0900, L100.0100, L3100.5500 #### [facility] [address] [place], [address] Albumin/Globulin [Mass ratio] 1.1 {ratio} Normal 0.9-2.4 [facility] Comment on above: Performed By: #### L 3100.5800, L400.2010, L3100.5700, L500.4050, L501.0900, L100.0100, L3100.5500 #### [facility] [address] [place], [address] ALK P 59 U/L Normal 45-117 [facility] Comment on above: Performed By: #### L 3100.5800, L400.2010, L3100.5700, L500.4050, L501.0900, L100.0100, L3100.5500 #### [facility] [address] [place], [address] ALT [Catalytic activity/Vol] 19 U/L Normal 13-56 [facility] Comment on above: Performed By: #### L 3100.5800, L4, L3100.5700, L500.4050, L501.0900, L100.0100, L3100.5500 #### [facility] [address] [place], [address] AST [Catalytic activity/Vol] 18 U/L Normal 15-37 [facility] Comment on above: Performed By: #### L 3100.5800, , L3100.5700, L500.4050, L501.0900, L100.0100, L3100.5500 #### [facility] [address] [place], [address] Bilirubin [Mass/Vol] 0.40 mg/dL Normal 0.20-1.00 [facility] Comment on above: Result Comment: For patients on eltrombopag therapy, use of Dimension [place] TBIL is not recommended. Performed By: #### L 3100.5800, , L3100.5700, L500.4050, L501.0900, L100.0100, L3100.5500 #### [facility] [address] [place], [address] BUN/CRE 22.0 RATIO High 10-20 [facility] Comment on above: Performed By: #### L 3100.5800, , L3100.5700, L500.4050, L501.0900, L100.0100, L3100.5500 #### [facility] [address] [place], [address] CA,Total 9.1 mg/dL Normal 8.5-10.1 [facility] Comment on above: Performed By: #### L 3100.5800, L4, L3100.5700, L500.4050, L501.0900, L100.0100, L3100.5500 #### [facility] [address] [place], [address] Chloride [Moles/Vol] 104 mmol/L Normal 98-107 [facility] Comment on above: Performed By: #### L 3100.5800, L400.2010, L3100.5700, L500.4050, L501.0900, L100.0100, L3100.5500 #### [facility] [address] [place], [address] CO2 [Moles/Vol] 27.0 mmol/L Normal 21.0-32.0 [facility] Comment on above: Performed By: #### L 3100.5800, L4.2010, L3100.5700, L500.4050, L501.0900, L100.0100, L3100.5500 #### [facility] [address] [place], [address] Creatinine [Mass/Vol] 0.82 mg/dL Normal 0.55-1.02 [facility] Comment on above: Result Comment: The validity of the calculated GFR GFRAA in patients over 70 years has not been determined. Clinical correlation is essential. Performed By: #### L 3100.5800, L4.2010, L3100.5700, L500.4050, L501.0900, L100.0100, L3100.5500 #### [facility] [address] [place], [address] EST GFR - AA 93 mL/min Normal >60 [facility] Comment on above: Result Comment: Afri can Romanian GFR Calc Performed By: #### L 3100.5800, L400.2010, L3100.5700, L500.4050, L501.0900, L100.0100, L3100.5500 #### [facility] [address] [place], [address] GAP 7 Normal 5-15 [facility] Comment on above: Performed By: #### L 3100.5800, L4, L3100.5700, L500.4050, L501.0900, L100.0100, L3100.5500 #### [facility] [address] [place], [address] GFR/1.73 sq M.predicted among non-blacks MDRD (S/P/Bld) [Vol rate/Area] 77 mL/min/{1.73_m2} Normal >60 [facility] Comment on above: Result Comment: Non- GFR Calc Performed By: #### L 3100.5800, L400.2010, L3100.5700, L500.4050, L501.0900, L100.0100, L3100.5500 #### [facility] [address] [place], [address] Globulin (S) [Mass/Vol] 3.5 g/dL Normal 2.2-4.2 [facility] Comment on above: Performed By: #### L 3100.5800, L4.2010, L3100.5700, L500.4050, L501.0900, L100.0100, L3100.5500 #### [facility] [address] [place], [address] Glucose [Mass/Vol] 80 mg/dL Normal 74-106 [facility] Comment on above: Performed By: #### L 3100.5800, L400.2010, L3100.5700, L500.4050, L501.0900, L100.0100, L3100.5500 #### [facility] [address] [place], [address] Potassium [Moles/Vol] 4.2 mmol/L Normal 3.5-5.1 [facility] Comment on above: Performed By: #### L 3100.5800, L400.2010, L3100.5700, L500.4050, L501.0900, L100.0100, L3100.5500 #### [facility] [address] [place], [address] Sodium [Moles/Vol] 138 mmol/L Normal 136-145 [facility] Comment on above: Performed By: #### L 3100.5800, L400.2010, L3100.5700, L500.4050, L501.0900, L100.0100, L3100.5500 #### [facility] [address] [place], [address] T PROT 7.2 g/dL Normal 6.4-8.2 [facility] Comment on above: Performed By: #### L 3100.5800, L400.2010, L3100.5700, L500.4050, L501.0900, L100.0100, L3100.5500 #### [facility] [address] [place], [address] Urea nitrogen [Mass/Vol] 18 mg/dL Normal 7-18 [facility] Comment on above: Performed By: #### L 3100.5800, L400.2010, L3100.5700, L500.4050, L501.0900, L100.0100, L3100.5500 #### [facility] [address], [address] Protein+Creatinine Ratio,Uri neon 05-13-2024 PROT:CRE RATIO 145 mg/g CRE Normal 0-200 [facility] Comment on above: Performed By: #### L 500.4050, L3100.5700, L400.2010, L3100.5500, L501.0900, L100.0100, L3100.5800 #### [facility] [address] [place], [address] Protein (U) [Mass/Vol] 13.8 mg/dL High <11.[address] [facility] Comment on above: Performed By: #### L 500.4050, L3100.5700, L400.2010, L3100.5500, L501.0900, L100.0100, L3100.5800 #### [facility] [address] [place], [address] UR CREAT 95.30 mg/dL Normal NO RANGE EST. [facility] Comment on above: Performed By: #### L 500.4050, L3100.5700, L400.2011, L3100.5500, L501.0900, L100.0100, L3100.5800 #### [facility] [address] [place], [address] Urinalysis, Routine (Dipstic k)on 05-13-2024 Clarity (U) Clear Normal Clear [facility] Comment on above: Order Comment: CLEAN CATCH Performed By: #### L 3100.5800, L400.2010, L3100.5700, L500.4050, L501.0900, L100.0100, L3100.5500 #### [facility] [address] [place], [address] Color (U) Yellow Normal Yellow [facility] Comment on above: Order Comment: CLEAN CATCH Performed By: #### L 3100.5800, L400.2010, L3100.5700, L500.4050, L501.0900, L100.0100, L3100.5500 #### [facility] [address] [place], [address] BILIRUBIN URINE Negative Normal Negative [facility] Comment on above: Order Comment: CLEAN CATCH Performed By: #### L 3100.5800, L400.2010, L3100.5700, L500.4050, L501.0900, L100.0100, L3100.5500 #### [facility] [address] [place], [address] GLUCOSE, UR Normal Normal Normal [facility] Comment on above: Order Comment: CLEAN CATCH Performed By: #### L 3100.5800, L400.2010, L3100.5700, L500.4050, L501.0900, L100.0100, L3100.5500 #### [facility] [address] [place], [address] KETONE UR Negative Normal Negative [facility] Comment on above: Order Comment: CLEAN CATCH Performed By: #### L 3100.5800, L400.2010, L3100.5700, L500.4050, L501.0900, L100.0100, L3100.5500 #### [facility] [address] [place], [address] LEUK ESTERASE 25 /ul Abnormal Negative [facility] Comment on above: Order Comment: CLEAN CATCH Performed By: #### L 3100.5800, L400.2010, L3100.5700, L500.4050, L501.0900, L100.0100, L3100.5500 #### [facility] [address] [place], [address] Nitrite Ql (U) Negative Normal Negative [facility] Comment on above: Order Comment: CLEAN CATCH Performed By: #### L 3100.5800, L400.2010, L3100.5700, L500.4050, L501.0900, L100.0100, L3100.5500 #### [facility] [address] [place], [address] OCCULT BLOOD-UR Negative Normal Negative [facility] Comment on above: Order Comment: CLEAN CATCH Performed By: #### L 3100.5800, L400.2010, L3100.5700, L500.4050, L501.0900, L100.0100, L3100.5500 #### [facility] [address] [place], [address] pH UR 7.0 Normal 5.0 - 8.0 [facility] Comment on above: Order Comment: CLEAN CATCH Performed By: #### L 3100.5800, L400.2010, L3100.5700, L500.4050, L501.0900, L100.0100, L3100.5500 #### [facility] [address] [place], [address] PROT DIPSTX Negative Normal Negative [facility] Comment on above: Order Comment: CLEAN CATCH Performed By: #### L 3100.5800, L400.2010, L3100.5700, L500.4050, L501.0900, L100.0100, L3100.5500 #### [facility] [address] [place], [address] SP.GR. DIPSTX 1.010 Normal 1.002-1.030 [facility] Comment on above: Order Comment: CLEAN CATCH Performed By: #### L 3100.5800, L400.2010, L3100.5700, L500.4050, L501.0900, L100.0100, L3100.5500 #### [facility] [address] [place], [address] UROBILI Normal Normal Normal [facility] Comment on above: Order Comment: CLEAN CATCH Performed By: #### L 3100.5800, L400.2010, L3100.5700, L500.4050, L501.0900, L100.0100, L3100.5500 #### [facility] [address] [place], [address] Anti-dsDNA Abon 04-13-2024 ANTI-DNA (DS)AB TNP Normal [facility] Comment on above: Order Comment: WILL REORDER Result Comment: WILL REORDER Performed By: #### L 500.4050, L3100.5700, L400.2010, L3100.5500, L501.0900, L100.0100, L3100.5800 #### [facility] [address] [place], [address] CBC W/Diff, Automatedon 01-0 7-2025 PATH REV Reviewed Normal [facility] Comment on above: Result Comment: Leuk openia and neutropenia. Clinical correlation necessary. Sj Geiger M.D. 04/12/24 AMENDED REPORT 04/12/24 1355 PATH REV previously reported as: August Performed By: #### L 500.4050, L3100.5700, L400.2011, L3100.5500, L501.0900, L100.0100, L3100.5800 #### [facility] [address] [place], [place], [address] Complement C3on 04-12-2024 COMP C3 85 mg/dL Normal 82-167 [facility] Comment on above: Result Comment: Perf ormed at: [facility] [address] [id number] Sales Force Developer: Pacheco Gramajo PhD, Phone: [phone] Performed By: #### L 500.4050, L3100.5700, L400.2010, L3100.5500, L501.0900, L100.0100, L3100.5800 #### [facility] [address] [place], [place], [id number] Complement C4on 04-12-2024 COMPLEMENT, C4 12 mg/dL Normal 12-38 [facility] Comment on above: Performed By: #### L 500.4050, L3100.5700, L400.2010, L3100.5500, L501.0900, L100.0100, L3100.5800 #### [facility] [address] [place], [place], [id number] Comprehensive Metabolic Prof ilon 04-11-2024 Albumin [Mass/Vol] 3.6 g/dL Normal 3.2-5.0 [facility] Comment on above: Performed By: #### L 500.4050, L3100.5700, L400.2010, L3100.5500, L501.0900, L100.0100, L3100.5800 #### [facility] [address] [place], [address] Albumin/Globulin [Mass ratio] 1.0 {ratio} Normal 0.9-2.4 [facility] Comment on above: Performed By: #### L 500.4050, L3100.5700, L400.2010, L3100.5500, L501.0900, L100.0100, L3100.5800 #### [facility] [address] [place], [address] ALK P 61 U/L Normal 45-117 [facility] Comment on above: Performed By: #### L 500.4050, L3100.5700, L400.2010, L3100.5500, L501.0900, L100.0100, L3100.5800 #### [facility] [address] [place], [address] ALT [Catalytic activity/Vol] 26 U/L Normal 13-56 [facility] Comment on above: Performed By: #### L 500.4050, L3100.5700, L400.2010, L3100.5500, L501.0900, L100.0100, L3100.5800 #### [facility] [address] [place], [address] AST [Catalytic activity/Vol] 23 U/L Normal 15-37 [facility] Comment on above: Performed By: #### L 500.4050, L3100.5700, L400.2010, L3100.5500, L501.0900, L100.0100, L3100.5800 #### [facility] [address] [place], [address] Bilirubin [Mass/Vol] 0.50 mg/dL Normal 0.20-1.00 [facility] Comment on above: Result Comment: For patients on eltrombopag therapy, use of Dimension [place] TBIL is not recommended. Performed By: #### L 500.4050, L3100.5700, L400.2010, L3100.5500, L501.0900, L100.0100, L3100.5800 #### [facility] [address] [place], [address] BUN/CRE 21.0 RATIO High 10-20 [facility] Comment on above: Performed By: #### L 500.4050, L3100.5700, L400.2010, L3100.5500, L501.0900, L100.0100, L3100.5800 #### [facility] [address] [place], [address] CA,Total 9.0 mg/dL Normal 8.5-10.1 [facility] Comment on above: Performed By: #### L 500.4050, L3100.5700, L400.2010, L3100.5500, L501.0900, L100.0100, L3100.5800 #### [facility] [address] [place], [address] Chloride [Moles/Vol] 106 mmol/L Normal 98-107 [facility] Comment on above: Performed By: #### L 500.4050, L3100.5700, L400.2010, L3100.5500, L501.0900, L100.0100, L3100.5800 #### [facility] [address] [place], [address] CO2 [Moles/Vol] 30.0 mmol/L Normal 21.0-32.0 [facility] Comment on above: Performed By: #### L 500.4050, L3100.5700, L400.2010, L3100.5500, L501.0900, L100.0100, L3100.5800 #### [facility] [address] [place], [address] Creatinine [Mass/Vol] 0.67 mg/dL Normal 0.55-1.02 [facility] Comment on above: Result Comment: The validity of the calculated GFR GFRAA in patients over 70 years has not been determined. Clinical correlation is essential. Performed By: #### L 500.4050, L3100.5700, L400.2010, L3100.5500, L501.0900, L100.0100, L3100.5800 #### [facility] [address] [place], [address] EST GFR - AA 118 mL/min Normal >60 [facility] Comment on above: Result Comment: Afri can Romanian GFR Calc Performed By: #### L 500.4050, L3100.5700, L400.2010, L3100.5500, L501.0900, L100.0100, L3100.5800 #### [facility] [address] [place], [address] GAP 1 Low 5-15 [facility] Comment on above: Performed By: #### L 500.4050, L3100.5700, L4.2010, L3100.5500, L501.0900, L100.0100, L3100.5800 #### [facility] [address] [place], [address] GFR/1.73 sq M.predicted among non-blacks MDRD (S/P/Bld) [Vol rate/Area] 97 mL/min/{1.73_m2} Normal >60 [facility] Comment on above: Result Comment: Non- GFR Calc Performed By: #### L 500.4050, L3100.5700, L400.2010, L3100.5500, L501.0900, L100.0100, L3100.5800 #### [facility] [address] [place], [address] Globulin (S) [Mass/Vol] 3.5 g/dL Normal 2.2-4.2 [facility] Comment on above: Performed By: #### L 500.4050, L3100.5700, L400.2010, L3100.5500, L501.0900, L100.0100, L3100.5800 #### [facility] [address] [place], [address] Glucose [Mass/Vol] 86 mg/dL Normal 74-106 [facility] Comment on above: Performed By: #### L 500.4050, L3100.5700, L400.2010, L3100.5500, L501.0900, L100.0100, L3100.5800 #### [facility] [address] [place], [address] Potassium [Moles/Vol] 4.5 mmol/L Normal 3.5-5.1 [facility] Comment on above: Performed By: #### L 500.4050, L3100.5700, L400.2010, L3100.5500, L501.0900, L100.0100, L3100.5800 #### [facility] [address] [place], [address] Sodium [Moles/Vol] 137 mmol/L Normal 136-145 [facility] Comment on above: Performed By: #### L 500.4050, L3100.5700, L400.2010, L3100.5500, L501.0900, L100.0100, L3100.5800 #### [facility] [address] [place], [address] T PROT 7.1 g/dL Normal 6.4-8.2 [facility] Comment on above: Performed By: #### L 500.4050, L3100.5700, L400.2010, L3100.5500, L501.0900, L100.0100, L3100.5800 #### [facility] [address] [place], [address] Urea nitrogen [Mass/Vol] 14 mg/dL Normal 7-18 [facility] Comment on above: Performed By: #### L 500.4050, L3100.5700, L400.2010, L3100.5500, L501.0900, L100.0100, L3100.5800 #### [facility] [address] [place], [address] Protein+Creatinine Ratio,Uri neon 04-11-2024 PROT:CRE RATIO 175 mg/g CRE Normal 0-200 [facility] Comment on above: Performed By: #### L 500.4050, L3100.5700, L400.2010, L3100.5500, L501.0900, L100.0100, L3100.5800 #### [facility] [address] [place], [address] Protein (U) [Mass/Vol] 10.3 mg/dL Normal <11.[address] [facility] Comment on above: Performed By: #### L 500.4050, L3100.5700, L400.2010, L3100.5500, L501.0900, L100.0100, L3100.5800 #### [facility] [address] [place], [address] UR CREAT 59.00 mg/dL Normal NO RANGE EST. [facility] Comment on above: Performed By: #### L 500.4050, L3100.5700, L400.2010, L3100.5500, L501.0900, L100.0100, L3100.5800 #### [facility] [address] [place], [address] Urinalysis, Routine (Dipstic k)on 04-11-2024 BILIRUBIN URINE Negative Normal Negative [facility] Comment on above: Order Comment: CLEAN CATCH Performed By: #### L 500.4050, L3100.5700, L400.2010, L3100.5500, L501.0900, L100.0100, L3100.5800 #### [facility] [address] [place], [address] Clarity (U) Clear Normal Clear [facility] Comment on above: Order Comment: CLEAN CATCH Performed By: #### L 500.4050, L3100.5700, L400.2011, L3100.5500, L501.0900, L100.0100, L3100.5800 #### [facility] [address] [place], [address] Color (U) Yellow Normal Yellow [facility] Comment on above: Order Comment: CLEAN CATCH Performed By: #### L 500.4050, L3100.5700, L400.2011, L3100.5500, L501.0900, L100.0100, L3100.5800 #### [facility] [address] [place], [address] GLUCOSE, UR Normal Normal Normal [facility] Comment on above: Order Comment: CLEAN CATCH Performed By: #### L 500.4050, L3100.5700, L400.2010, L3100.5500, L501.0900, L100.0100, L3100.5800 #### [facility] [address] [place], [address] KETONE UR Negative Normal Negative [facility] Comment on above: Order Comment: CLEAN CATCH Performed By: #### L 500.4050, L3100.5700, L400.2010, L3100.5500, L501.0900, L100.0100, L3100.5800 #### [facility] [address] [place], [address] LEUK ESTERASE Negative Normal Negative [facility] Comment on above: Order Comment: CLEAN CATCH Performed By: #### L 500.4050, L3100.5700, L400.2011, L3100.5500, L501.0900, L100.0100, L3100.5800 #### [facility] [address] [place], [address] Nitrite Ql (U) Negative Normal Negative [facility] Comment on above: Order Comment: CLEAN CATCH Performed By: #### L 500.4050, L3100.5700, L400.2011, L3100.5500, L501.0900, L100.0100, L3100.5800 #### [facility] [address] [place], [address] OCCULT BLOOD-UR Negative Normal Negative [facility] Comment on above: Order Comment: CLEAN CATCH Performed By: #### L 500.4050, L3100.5700, L400.2010, L3100.5500, L501.0900, L100.0100, L3100.5800 #### [facility] [address] [place], [address] pH UR 7.0 Normal 5.0 - 8.0 [facility] Comment on above: Order Comment: CLEAN CATCH Performed By: #### L 500.4050, L3100.5700, L400.2010, L3100.5500, L501.0900, L100.0100, L3100.5800 #### [facility] [address] [place], [address] PROT DIPSTX Negative Normal Negative [facility] Comment on above: Order Comment: CLEAN CATCH Performed By: #### L 500.4050, L3100.5700, L400.2010, L3100.5500, L501.0900, L100.0100, L3100.5800 #### [facility] [address] [place], [address] SP.GR. DIPSTX 1.005 Normal 1.002-1.030 [facility] Comment on above: Order Comment: CLEAN CATCH Performed By: #### L 500.4050, L3100.5700, L400.2010, L3100.5500, L501.0900, L100.0100, L3100.5800 #### [facility] [address] [place], [address] UROBILI Normal Normal Normal [facility] Comment on above: Order Comment: CLEAN CATCH Performed By: #### L 500.4050, L3100.5700, L400.2010, L3100.5500, L501.0900, L100.0100, L3100.5800 #### [facility] [address] [place], [address] Basic Metabolic Profile (BMP )on 03-15-2024 BUN/CRE 20.7 RATIO High 10-20 [facility] Comment on above: Performed By: #### L 500.4050, L3100.5700, L400.2010, L3100.5500, L501.0900, L100.0100, L3100.5800 #### [facility] [address] [place], [address] CA,Total 9.4 mg/dL Normal 8.5-10.1 [facility] Comment on above: Performed By: #### L 500.4050, L3100.5700, L4.2010, L3100.5500, L501.0900, L100.0100, L3100.5800 #### [facility] [address] [place], [address] Chloride [Moles/Vol] 109 mmol/L High 98-107 [facility] Comment on above: Performed By: #### L 500.4050, L3100.5700, L400.2010, L3100.5500, L501.0900, L100.0100, L3100.5800 #### [facility] [address] [place], [address] CO2 [Moles/Vol] 26.0 mmol/L Normal 21.0-32.0 [facility] Comment on above: Performed By: #### L 500.4050, L3100.5700, L400.2010, L3100.5500, L501.0900, L100.0100, L3100.5800 #### [facility] [address] [place], [address] Creatinine [Mass/Vol] 0.72 mg/dL Normal 0.55-1.02 [facility] Comment on above: Result Comment: The validity of the calculated GFR GFRAA in patients over 70 years has not been determined. Clinical correlation is essential. Performed By: #### L 500.4050, L3100.5700, L400.2011, L3100.5500, L501.0900, L100.0100, L3100.5800 #### [facility] [address] [place], [address] EST GFR - AA 108 mL/min Normal >60 [facility] Comment on above: Result Comment: Afri can Romanian GFR Calc Performed By: #### L 500.4050, L3100.5700, L400.2010, L3100.5500, L501.0900, L100.0100, L3100.5800 #### [facility] [address] [place], [address] GAP 4 Low 5-15 [facility] Comment on above: Performed By: #### L 500.4050, L3100.5700, L400.2010, L3100.5500, L501.0900, L100.0100, L3100.5800 #### [facility] [address] [place], [address] GFR/1.73 sq M.predicted among non-blacks MDRD (S/P/Bld) [Vol rate/Area] 89 mL/min/{1.73_m2} Normal >60 [facility] Comment on above: Result Comment: Non- GFR Calc Performed By: #### L 500.4050, L3100.5700, L400.2010, L3100.5500, L501.0900, L100.0100, L3100.5800 #### [facility] [address] [place], [address] Glucose [Mass/Vol] 83 mg/dL Normal 74-106 [facility] Comment on above: Performed By: #### L 500.4050, L3100.5700, L400.2011, L3100.5500, L501.0900, L100.0100, L3100.5800 #### [facility] [address] [place], [address] Potassium [Moles/Vol] 4.4 mmol/L Normal 3.5-5.1 [facility] Comment on above: Performed By: #### L 500.4050, L3100.5700, L400.2011, L3100.5500, L501.0900, L100.0100, L3100.5800 #### [facility] [address] [place], [address] Sodium [Moles/Vol] 139 mmol/L Normal 136-145 [facility] Comment on above: Performed By: #### L 500.4050, L3100.5700, L400.2010, L3100.5500, L501.0900, L100.0100, L3100.5800 #### [facility] [address] [place], [address] Urea nitrogen [Mass/Vol] 15 mg/dL Normal 7-18 [facility] Comment on above: Performed By: #### L 500.4050, L3100.5700, L400.2010, L3100.5500, L501.0900, L100.0100, L3100.5800 #### [facility] [address] [place], [address] Microalb:Creat Ratio,Random URon 03-15-2024 Creatinine [Mass/Vol] 143.00 mg/dL Normal NO RAN GE EST. [facility] Comment on above: Performed By: #### L 500.4050, L3100.5700, L400.2011, L3100.5500, L501.0900, L100.0100, L3100.5800 #### [facility] [address] [place], [address] MALB:CRE 5.0 mg/g CRE Normal <30 mg/g CRE [facility] Comment on above: Performed By: #### L 500.4050, L3100.5700, L400.2011, L3100.5500, L501.0900, L100.0100, L3100.5800 #### [facility] [address] [place], [address] MICROALBUMIN,UR 7.1 mg/L Normal NO RANGE EST. [facility] Comment on above: Performed By: #### L 500.4050, L3100.5700, L400.2010, L3100.5500, L501.0900, L100.0100, L3100.5800 #### [facility] [address] [place], [place], [id number] Anti-dsDNA Abon 02-19-2024 ANTI-DNA (DS)AB 27 IU/mL Abnormal 0-9 [facility] Comment on above: Result Comment: Nega tive <5 Equivocal 5 - 9 Positive >9 Performed at: [employer] [id number] Sales Force Developer: Pacheco Gramajo PhD, Phone: [phone] Performed By: #### L 500.4050, L3100.5700, L400.2010, L3100.5500, L501.0900, L100.0100, L3100.5800 #### [facility] [address] [place], [place], [id number] Complement C3on 02-19-2024 COMP C3 86 mg/dL Normal 82-167 [facility] Comment on above: Result Comment: Perf ormed at: [facility] [employer] [id number] Sales Force Developer: Pacheco Gramajo PhD, Phone: [phone] Performed By: #### L 500.4050, L3100.5700, L400.2010, L3100.5500, L501.0900, L100.0100, L3100.5800 #### [facility] [address] [place], [address] Complement C4on 02-19-2024 COMPLEMENT, C4 13 mg/dL Normal 12-38 [facility] Comment on above: Performed By: #### L 500.4050, L3100.5700, L400.2011, L3100.5500, L501.0900, L100.0100, L3100.5800 #### [facility] [address] [place], [address] CBC W/Diff, Automatedon 02-04 Absolute Lymph 0.93 X10 3/uL Normal 0.83-4.51 [facility] Comment on above: Performed By: #### L 500.4050, L3100.5700, L400.2010, L3100.5500, L501.0900, L100.0100, L3100.5800 #### [facility] [address] [place], [address] Absolute Neut 1.5 X10 3/uL Low 2.0-7.7 [facility] Comment on above: Performed By: #### L 500.4050, L3100.5700, L400.2010, L3100.5500, L501.0900, L100.0100, L3100.5800 #### [facility] [address] [place], [address] Basophils/100 WBC (Bld) 1.1 % High 0-1 [facility] Comment on above: Performed By: #### L 500.4050, L3100.5700, L400.2011, L3100.5500, L501.0900, L100.0100, L3100.5800 #### [facility] [address] [place], [address] Eosinophils/100 WBC (Bld) 2.1 % Normal 0-5 [facility] Comment on above: Performed By: #### L 500.4050, L3100.5700, L400.2010, L3100.5500, L501.0900, L100.0100, L3100.5800 #### [facility] [address] [place], [address] Erythrocyte distribution width (RBC) [Ratio] 12.0 % Normal 11.6-14.6 [facility] Comment on above: Performed By: #### L 500.4050, L3100.5700, L400.2010, L3100.5500, L501.0900, L100.0100, L3100.5800 #### [facility] [address] [place], [address] Hematocrit (Bld) [Volume fraction] 39.2 % Normal 37-47 [facility] Comment on above: Performed By: #### L 500.4050, L3100.5700, L400.2010, L3100.5500, L501.0900, L100.0100, L3100.5800 #### [facility] [address] [place], [address] Hemoglobin (Bld) [Mass/Vol] 12.3 g/dL Normal 12.0-15.0 [facility] Comment on above: Performed By: #### L 500.4050, L3100.5700, L400.2010, L3100.5500, L501.0900, L100.0100, L3100.5800 #### [facility] [address] [place], [address] IG% 0.000 Normal 0.0-0.9 [facility] Comment on above: Result Comment: IG% - Immature Granulocytes (promyelocytes, myelocytes and metamyelocytes) > 1% indicates that a LEFT SHIFT is Present. Performed By: #### L 500.4050, L3100.5700, L400.2010, L3100.5500, L501.0900, L100.0100, L3100.5800 #### [facility] [address] [place], [address] Lymphocytes/100 WBC (Bld) 33.2 % Normal 19-41 [facility] Comment on above: Performed By: #### L 500.4050, L3100.5700, L400.2011, L3100.5500, L501.0900, L100.0100, L3100.5800 #### [facility] [address] [place], [address] MCH (RBC) [Entitic mass] 31.4 pg Normal 27.0-32.0 [facility] Comment on above: Performed By: #### L 500.4050, L3100.5700, L400.2010, L3100.5500, L501.0900, L100.0100, L3100.5800 #### [facility] [address] [place], [address] MCHC (RBC) [Mass/Vol] 31.4 g/dL Low 32-36 [facility] Comment on above: Performed By: #### L 500.4050, L3100.5700, L400.2010, L3100.5500, L501.0900, L100.0100, L3100.5800 #### [facility] [address] [place], [address] MCV (RBC) [Entitic vol] 100.0 fL High 81-99 [facility] Comment on above: Performed By: #### L 500.4050, L3100.5700, L400.2010, L3100.5500, L501.0900, L100.0100, L3100.5800 #### [facility] [address] [place], [address] Monocytes/100 WBC (Bld) 11.4 % High 0-10 [facility] Comment on above: Performed By: #### L 500.4050, L3100.5700, L400.2010, L3100.5500, L501.0900, L100.0100, L3100.5800 #### [facility] [address] [place], [address] Neutrophils/100 WBC (Bld) 52.2 % Normal 47-70 [facility] Comment on above: Performed By: #### L 500.4050, L3100.5700, L400.2011, L3100.5500, L501.0900, L100.0100, L3100.5800 #### [facility] [address] [place], [address] Nucleated RBC (Bld) [#/Vol] 0 10*3/uL Normal 0-5 [facility] Comment on above: Performed By: #### L 500.4050, L3100.5700, L400.2010, L3100.5500, L501.0900, L100.0100, L3100.5800 #### [facility] [address] [place], [address] Platelet mean volume (Bld) [Entitic vol] 11.1 fL Normal 6.2-12.0 [facility] Comment on above: Performed By: #### L 500.4050, L3100.5700, L400.2010, L3100.5500, L501.0900, L100.0100, L3100.5800 #### [facility] [address] [place], [address] Platelets (Bld) [#/Vol] 168 10*3/uL Normal 150-450 [facility] Comment on above: Performed By: #### L 500.4050, L3100.5700, L400.2010, L3100.5500, L501.0900, L100.0100, L3100.5800 #### [facility] [address] [place], [address] RBC (Bld) [#/Vol] 3.92 10*6/uL Low 4.2-5.4 [facility] Comment on above: Performed By: #### L 500.4050, L3100.5700, L400.2010, L3100.5500, L501.0900, L100.0100, L3100.5800 #### [facility] [address] [place], [address] RDW SD 43.5 fl Normal 35.1-43.9 [facility] Comment on above: Performed By: #### L 500.4050, L3100.5700, L400.2010, L3100.5500, L501.0900, L100.0100, L3100.5800 #### [facility] [address] [place], [address] WBC (Bld) [#/Vol] 2.8 10*3/uL Low 4.4-11.0 [facility] Comment on above: Performed By: #### L 500.4050, L3100.5700, L400.2010, L3100.5500, L501.0900, L100.0100, L3100.5800 #### [facility] [address] [place], [address] Comprehensive Metabolic Prof [facility] 02-17-2024 Albumin [Mass/Vol] 3.6 g/dL Normal 3.2-5.0 [facility] Comment on above: Performed By: #### L 500.4050, L3100.5700, L400.2010, L3100.5500, L501.0900, L100.0100, L3100.5800 #### [facility] [address] [place], [address] Albumin/Globulin [Mass ratio] 1.1 {ratio} Normal 0.9-2.4 [facility] Comment on above: Performed By: #### L 500.4050, L3100.5700, L400.2010, L3100.5500, L501.0900, L100.0100, L3100.5800 #### [facility] [address] [place], [address] ALK P 65 U/L Normal 45-117 [facility] Comment on above: Performed By: #### L 500.4050, L3100.5700, L400.2010, L3100.5500, L501.0900, L100.0100, L3100.5800 #### [facility] [address] [place], [address] ALT [Catalytic activity/Vol] 20 U/L Normal 13-56 [facility] Comment on above: Performed By: #### L 500.4050, L3100.5700, L400.2010, L3100.5500, L501.0900, L100.0100, L3100.5800 #### [facility] [address] [place], [address] AST [Catalytic activity/Vol] 14 U/L Low 15-37 [facility] Comment on above: Performed By: #### L 500.4050, L3100.5700, L400.2010, L3100.5500, L501.0900, L100.0100, L3100.5800 #### [facility] [address] [place], [address] Bilirubin [Mass/Vol] 0.30 mg/dL Normal 0.20-1.00 [facility] Comment on above: Result Comment: For patients on eltrombopag therapy, use of Dimension [place] TBIL is not recommended. Performed By: #### L 500.4050, L3100.5700, L400.2010, L3100.5500, L501.0900, L100.0100, L3100.5800 #### [facility] [address] [place], [address] BUN/CRE 30.8 RATIO High 10-20 [facility] Comment on above: Performed By: #### L 500.4050, L3100.5700, L400.2010, L3100.5500, L501.0900, L100.0100, L3100.5800 #### [facility] [address] [place], [address] CA,Total 9.0 mg/dL Normal 8.5-10.1 [facility] Comment on above: Performed By: #### L 500.4050, L3100.5700, L400.2010, L3100.5500, L501.0900, L100.0100, L3100.5800 #### [facility] [address] [place], [address] Chloride [Moles/Vol] 107 mmol/L Normal 98-107 [facility] Comment on above: Performed By: #### L 500.4050, L3100.5700, L400.2010, L3100.5500, L501.0900, L100.0100, L3100.5800 #### [facility] [address] [place], [address] CO2 [Moles/Vol] 29.0 mmol/L Normal 21.0-32.0 [facility] Comment on above: Performed By: #### L 500.4050, L3100.5700, L400.2010, L3100.5500, L501.0900, L100.0100, L3100.5800 #### [facility] [address] [place], [address] Creatinine [Mass/Vol] 0.68 mg/dL Normal 0.55-1.02 [facility] Comment on above: Result Comment: The validity of the calculated GFR GFRAA in patients over 70 years has not been determined. Clinical correlation is essential. Performed By: #### L 500.4050, L3100.5700, L400.2010, L3100.5500, L501.0900, L100.0100, L3100.5800 #### [facility] [address] [place], [address] EST GFR - AA 115 mL/min Normal >60 [facility] Comment on above: Result Comment: Afri can Romanian GFR Calc Performed By: #### L 500.4050, L3100.5700, L400.2010, L3100.5500, L501.0900, L100.0100, L3100.5800 #### [facility] [address] [place], [address] GAP 3 Low 5-15 [facility] Comment on above: Performed By: #### L 500.4050, L3100.5700, L400.2010, L3100.5500, L501.0900, L100.0100, L3100.5800 #### [facility] [address] [place], [address] GFR/1.73 sq M.predicted among non-blacks MDRD (S/P/Bld) [Vol rate/Area] 95 mL/min/{1.73_m2} Normal >60 [facility] Comment on above: Result Comment: Non- GFR Calc Performed By: #### L 500.4050, L3100.5700, L400.2010, L3100.5500, L501.0900, L100.0100, L3100.5800 #### [facility] [address] [place], [address] Globulin (S) [Mass/Vol] 3.4 g/dL Normal 2.2-4.2 [facility] Comment on above: Performed By: #### L 500.4050, L3100.5700, L400.2010, L3100.5500, L501.0900, L100.0100, L3100.5800 #### [facility] [address] [place], [address] Glucose [Mass/Vol] 82 mg/dL Normal 74-106 [facility] Comment on above: Performed By: #### L 500.4050, L3100.5700, L400.2010, L3100.5500, L501.0900, L100.0100, L3100.5800 #### [facility] [address] [place], [address] Potassium [Moles/Vol] 4.4 mmol/L Normal 3.5-5.1 [facility] Comment on above: Performed By: #### L 500.4050, L3100.5700, L400.2010, L3100.5500, L501.0900, L100.0100, L3100.5800 #### [facility] [address] [place], [address] Sodium [Moles/Vol] 139 mmol/L Normal 136-145 [facility] Comment on above: Performed By: #### L 500.4050, L3100.5700, L400.2010, L3100.5500, L501.0900, L100.0100, L3100.5800 #### [facility] [address] [place], [address] T PROT 7.0 g/dL Normal 6.4-8.2 [facility] Comment on above: Performed By: #### L 500.4050, L3100.5700, L400.2010, L3100.5500, L501.0900, L100.0100, L3100.5800 #### [facility] [address] [place], [address] Urea nitrogen [Mass/Vol] 21 mg/dL High 7-18 [facility] Comment on above: Performed By: #### L 500.4050, L3100.5700, L400.2010, L3100.5500, L501.0900, L100.0100, L3100.5800 #### [facility] [address] [place], [address] Protein+Creatinine Ratio,Uri neon 02-17-2024 PROT:CRE RATIO 265 mg/g CRE High 0-200 [facility] Comment on above: Performed By: #### L 500.4050, L3100.5700, L400.2010, L3100.5500, L501.0900, L100.0100, L3100.5800 #### [facility] [address] [place], [address] Protein (U) [Mass/Vol] 8.0 mg/dL Normal <11.[address] [facility] Comment on above: Performed By: #### L 500.4050, L3100.5700, L400.2010, L3100.5500, L501.0900, L100.0100, L3100.5800 #### [facility] [address] [place], [address] UR CREAT 30.20 mg/dL Normal NO RANGE EST. [facility] Comment on above: Performed By: #### L 500.4050, L3100.5700, L400.2010, L3100.5500, L501.0900, L100.0100, L3100.5800 #### [facility] [address] [place], [address] Urinalysis, Routine (Dipstic k)on 02-17-2024 BILIRUBIN URINE Negative Normal Negative [facility] Comment on above: Order Comment: CLEAN CATCH Performed By: #### L 500.4050, L3100.5700, L400.2010, L3100.5500, L501.0900, L100.0100, L3100.5800 #### [facility] [address] [place], [address] Clarity (U) Clear Normal Clear [facility] Comment on above: Order Comment: CLEAN CATCH Performed By: #### L 500.4050, L3100.5700, L400.2010, L3100.5500, L501.0900, L100.0100, L3100.5800 #### [facility] [address] [place], [address] Color (U) Yellow Normal Yellow [facility] Comment on above: Order Comment: CLEAN CATCH Performed By: #### L 500.4050, L3100.5700, L400.2011, L3100.5500, L501.0900, L100.0100, L3100.5800 #### [facility] [address] [place], [address] GLUCOSE, UR Normal Normal Normal [facility] Comment on above: Order Comment: CLEAN CATCH Performed By: #### L 500.4050, L3100.5700, L400.2010, L3100.5500, L501.0900, L100.0100, L3100.5800 #### [facility] [address] [place], [address] KETONE UR Negative Normal Negative [facility] Comment on above: Order Comment: CLEAN CATCH Performed By: #### L 500.4050, L3100.5700, L400.2010, L3100.5500, L501.0900, L100.0100, L3100.5800 #### [facility] [address] [place], [address] LEUK ESTERASE Negative Normal Negative [facility] Comment on above: Order Comment: CLEAN CATCH Performed By: #### L 500.4050, L3100.5700, L400.2010, L3100.5500, L501.0900, L100.0100, L3100.5800 #### [facility] [address] [place], [address] Nitrite Ql (U) Negative Normal Negative [facility] Comment on above: Order Comment: CLEAN CATCH Performed By: #### L 500.4050, L3100.5700, L400.2011, L3100.5500, L501.0900, L100.0100, L3100.5800 #### [facility] [address] [place], [address] OCCULT BLOOD-UR Negative Normal Negative [facility] Comment on above: Order Comment: CLEAN CATCH Performed By: #### L 500.4050, L3100.5700, L400.2010, L3100.5500, L501.0900, L100.0100, L3100.5800 #### [facility] [address] [place], [address] pH UR 7.0 Normal 5.0 - 8.0 [facility] Comment on above: Order Comment: CLEAN CATCH Performed By: #### L 500.4050, L3100.5700, L400.2010, L3100.5500, L501.0900, L100.0100, L3100.5800 #### [facility] [address] [place], [address] PROT DIPSTX Negative Normal Negative [facility] Comment on above: Order Comment: CLEAN CATCH Performed By: #### L 500.4050, L3100.5700, L400.2010, L3100.5500, L501.0900, L100.0100, L3100.5800 #### [facility] [address] [place], [address] SP.GR. DIPSTX 1.010 Normal 1.002-1.030 [facility] Comment on above: Order Comment: CLEAN CATCH Performed By: #### L 500.4050, L3100.5700, L400.2010, L3100.5500, L501.0900, L100.0100, L3100.5800 #### [facility] [address] [place], [address] UROBILI Normal Normal Normal [facility] Comment on above: Order Comment: CLEAN CATCH Performed By: #### L 500.4050, L3100.5700, L400.2010, L3100.5500, L501.0900, L100.0100, L3100.5800 #### [facility] [address] [place], [address] CBC W Auto Differential pane l (Bld)on 02-01-2024 Basophils (Bld) [#/Vol] 0.02 x10*3/uL Normal 0.00-0.10 [facility] Comment on above: Performed By: #### 2 132-9 #### CARLITOS ROBERTSON ([id number]) [facility] ([facility]) [address] [place] [address] Basophils/100 WBC (Bld) 0.6 % Normal 0.0-2.0 [facility] Comment on above: Performed By: #### 2 132-9 #### CARLITOS ROBERTSON ([id number]) [facility] ([facility]) [address] [place] [address] Eosinophils (Bld) [#/Vol] 0.12 x10*3/uL Normal 0.00-0.70 [facility] Comment on above: Performed By: #### 2 132-9 #### CARLITOS ROBERTSON ([id number]) [facility] ([facility]) [address] [place] [address] Eosinophils/100 WBC (Bld) 3.9 % Normal 0.0-6.0 [facility] Comment on above: Performed By: #### 2 132-9 #### CARLITOS ROBERTSON ([id number]) [facility] ([facility]) [address] [place] [address]990 Erythrocyte distribution width (RBC) [Ratio] 11.9 % Normal 11.5-14.5 [facility] Comment on above: Performed By: #### 2 132-9 #### CARLITOS ROBERTSON ([id number]) [facility] ([facility]) [address] [place] [address] 18812 Hematocrit (Bld) [Volume fraction] 43.1 % Normal 36.0-46.0 [facility] Comment on above: Performed By: #### 2 132-9 #### CARLITOS ROBERTSON ([id number]) [facility] ([facility]) [address] [place] [address]355 Hemoglobin (Bld) [Mass/Vol] 13.7 g/dL Normal 12.0-16.0 [facility] Comment on above: Performed By: #### 2 132-9 #### CARLITOS ROBERTSON ([id number]) [facility] ([facility]) [address] [place] [address] 61066 Immature granulocytes (Bld) [#/Vol] 0.00 x10*3/uL Normal 0.00-0.70 [facility] Comment on above: Performed By: #### 2 132-9 #### CARLITOS ROBERTSON ([id number]) [facility] ([facility]) [address] [place] [address] Immature granulocytes/100 WBC (Bld) 0.0 % Normal 0.0-0.9 [facility] Comment on above: Result Comment: Sharona ture Granulocyte Count (IG) includes promyelocytes, myelocytes and metamyelocytes but does not include bands. Percent differential counts (%) should be interpreted in the context of the absolute cell counts (cells/UL). Performed By: #### 2 132-9 #### CARLITOS ROBERTSON ([id number]) [facility] ([facility]) [address] [place] [address]2576 Lymphocytes (Bld) [#/Vol] 0.71 x10*3/uL Low 1.20-4.80 [facility] Comment on above: Performed By: #### 2 132-9 #### CARLITOS ROBERTSON ([id number]) [facility] ([facility]) [address] [place] [address]1038 Lymphocytes/100 WBC (Bld) 22.9 % Normal 13.0-44.0 [facility] Comment on above: Performed By: #### 2 132-9 #### CARLITOS ROBERTSON ([id number]) [facility] ([facility]) [address] [place] [address] 49031 MCH (RBC) [Entitic mass] 31.7 pg Normal 26.0-34.0 [facility] Comment on above: Performed By: #### 2 132-9 #### CARLITOS ROBERTSON ([id number]) [facility] ([facility]) [address] [place] [address] 92873 MCHC (RBC) [Mass/Vol] 31.8 g/dL Low 32.0-36.0 [facility] Comment on above: Performed By: #### 2 132-9 #### CARLITOS ROBERTSON ([id number]) [facility] ([facility]) [address] [place] [address] 89038 MCV (RBC) [Entitic vol] 100 fL Normal 80-100 [facility] Comment on above: Performed By: #### 2 132-9 #### CARLITOS ROBERTSON ([id number]) [facility] ([facility]) [address] [place] [address] 36744 Monocytes (Bld) [#/Vol] 0.48 x10*3/uL Normal 0.10-1.00 [facility] Comment on above: Performed By: #### 2 132-9 #### CARLITOS ROBERTSON ([id number]) [facility] ([facility]) [address] [place] [address] 56313 Monocytes/100 WBC (Bld) 15.5 % Normal 2.0-10.0 [facility] Comment on above: Performed By: #### 2 132-9 #### CARLITOS ROBERTSON ([id number]) [facility] ([facility]) [address] [place] [address] 26253 Neutrophils (Bld) [#/Vol] 1.77 x10*3/uL Normal 1.20-7.70 [facility] Comment on above: Result Comment: Perc ent differential counts (%) should be interpreted in the context of the absolute cell counts (cells/uL). Performed By: #### 2 132-9 #### CARLITOS ROBERTSON ([id number]) [facility] ([facility]) [address] [place] [address] 39539 Neutrophils/100 WBC (Bld) 57.1 % Normal 40.0-80.0 [facility] Comment on above: Performed By: #### 2 132-9 #### CARLITOS ROBERTSON ([id number]) [facility] ([facility]) [address] [place] [address] 69516 Nucleated RBC/100 WBC (Bld) [Ratio] 0.0 /100 WBCs Normal 0.0-0.0 [facility] Comment on above: Performed By: #### 2 132-9 #### CARLITOS ROBERTSON ([id number]) [facility] ([facility]) [address] [place] [address] 11956 Platelets (Bld) [#/Vol] 173 x10*3/uL Normal 150-450 [facility] Comment on above: Performed By: #### 2 132-9 #### CARLITOS ROBERTSON ([id number]) [facility] ([facility]) [address] [place] [address] 50728 RBC (Bld) [#/Vol] 4.32 x10*6/uL Normal 4.00-5.20 [facility] Comment on above: Performed By: #### 2 132-9 #### CARLITOS ROBERTSON ([id number]) [facility] ([facility]) [address] [place] [address] 63334 WBC (Bld) [#/Vol] 3.1 x10*3/uL Low 4.4-11.3 [facility] Comment on above: Performed By: #### 2 132-9 #### CARLITOS ROBERTSON ([id number]) [facility] ([facility]) [address] [place] [address] 85316 Basic Metabolic Profile (BMP )on 01-07-2024 BUN/CRE 18.1 RATIO Normal 10-20 [facility] Comment on above: Performed By: #### L 500.4050, L3100.5700, L400.2010, L3100.5500, L501.0900, L100.0100, L3100.5800 #### [facility] [address] [place], [address] CA,Total 9.8 mg/dL Normal 8.5-10.1 [facility] Comment on above: Performed By: #### L 500.4050, L3100.5700, L400.2010, L3100.5500, L501.0900, L100.0100, L3100.5800 #### [facility] [address] [place], [address] Chloride [Moles/Vol] 107 mmol/L Normal 98-107 [facility] Comment on above: Performed By: #### L 500.4050, L3100.5700, L400.2011, L3100.5500, L501.0900, L100.0100, L3100.5800 #### [facility] [address] [place], [address] CO2 [Moles/Vol] 28.0 mmol/L Normal 21.0-32.0 [facility] Comment on above: Performed By: #### L 500.4050, L3100.5700, L400.2010, L3100.5500, L501.0900, L100.0100, L3100.5800 #### [facility] [address] [place], [address] Creatinine [Mass/Vol] 0.72 mg/dL Normal 0.55-1.02 [facility] Comment on above: Result Comment: The validity of the calculated GFR GFRAA in patients over 70 years has not been determined. Clinical correlation is essential. Performed By: #### L 500.4050, L3100.5700, L400.2010, L3100.5500, L501.0900, L100.0100, L3100.5800 #### [facility] [address] [place], [address] EST GFR - AA 108 mL/min Normal >60 [facility] Comment on above: Result Comment: Afri can Romanian GFR Calc Performed By: #### L 500.4050, L3100.5700, L400.2010, L3100.5500, L501.0900, L100.0100, L3100.5800 #### [facility] [address] [place], [address] GAP 2 Low 5-15 [facility] Comment on above: Performed By: #### L 500.4050, L3100.5700, L400.2010, L3100.5500, L501.0900, L100.0100, L3100.5800 #### [facility] [address] [place], [address] GFR/1.73 sq M.predicted among non-blacks MDRD (S/P/Bld) [Vol rate/Area] 90 mL/min/{1.73_m2} Normal >60 [facility] Comment on above: Result Comment: Non- GFR Calc Performed By: #### L 500.4050, L3100.5700, L400.2010, L3100.5500, L501.0900, L100.0100, L3100.5800 #### [facility] [address] [place], [address] Glucose [Mass/Vol] 83 mg/dL Normal 74-106 [facility] Comment on above: Performed By: #### L 500.4050, L3100.5700, L400.2010, L3100.5500, L501.0900, L100.0100, L3100.5800 #### [facility] [address] [place], [address] Potassium [Moles/Vol] 4.5 mmol/L Normal 3.5-5.1 [facility] Comment on above: Performed By: #### L 500.4050, L3100.5700, L400.2010, L3100.5500, L501.0900, L100.0100, L3100.5800 #### [facility] [address] [place], [address] Sodium [Moles/Vol] 137 mmol/L Normal 136-145 [facility] Comment on above: Performed By: #### L 500.4050, L3100.5700, L400.2010, L3100.5500, L501.0900, L100.0100, L3100.5800 #### [facility] [address] [place], [address] Urea nitrogen [Mass/Vol] 13 mg/dL Normal 7-18 [facility] Comment on above: Performed By: #### L 500.4050, L3100.5700, L400.2010, L3100.5500, L501.0900, L100.0100, L3100.5800 #### [facility] [address] [place], [address] Microalb:Creat Ratio,Random URon 01-07-2024 Creatinine [Mass/Vol] 84.40 mg/dL Normal NO RAN GE EST. [facility] Comment on above: Performed By: #### L 500.4050, L3100.5700, L400.2010, L3100.5500, L501.0900, L100.0100, L3100.5800 #### [facility] [address] [place], [address] MALB:CRE 6.7 mg/g CRE Normal <30 mg/g CRE [facility] Comment on above: Performed By: #### L 500.4050, L3100.5700, L400.2010, L3100.5500, L501.0900, L100.0100, L3100.5800 #### [facility] [address] [place], [address] MICROALBUMIN,UR 5.6 mg/L Normal NO RANGE EST. [facility] Comment on above: Performed By: #### L 500.4050, L3100.5700, L400.2010, L3100.5500, L501.0900, L100.0100, L3100.5800 #### [facility] [address] [place], [address] Anti-dsDNA Abon 11-26-2023 ANTI-DNA (DS)AB 26 IU/mL Abnormal 0-9 [facility] Comment on above: Result Comment: Nega tive <5 Equivocal 5 - 9 Positive >9 Performed at: [facility] [id number] Sales Force Developer: Pacheco Gramajo PhD, Phone: [phone] Performed By: #### L 500.4050, L3100.5700, L4.2010, L3100.5500, L501.0900, L100.0100, L3100.5800 #### [facility] [address] [place], [address] Complement C3on 11-26-2023 COMP C3 90 mg/dL Normal 82-167 [facility] Comment on above: Result Comment: Perf ormed at: [facility] [id number] Sales Force Developer: Pacheco Gramajo PhD, Phone: [phone] Performed By: #### L 500.4050, L3100.5700, L400.2011, L3100.5500, L501.0900, L100.0100, L3100.5800 #### [facility] [address] [place], [address] Complement C4on 11-26-2023 COMPLEMENT, C4 12 mg/dL Normal 12-38 [facility] Comment on above: Performed By: #### L 500.4050, L3100.5700, L400.2010, L3100.5500, L501.0900, L100.0100, L3100.5800 #### [facility] [address] [place], [address] CBC W/Diff, Automatedon 08- PATH REV Reviewed Normal [facility] Comment on above: Result Comment: Leuk openia and neutropenia. Clinical correlation necessary. Sj Geiger M.D. 11/25/23 AMENDED REPORT 11/25/23 1315 PATH REV previously reported as: August Performed By: #### L 500.4050, L3100.5700, L400.2010, L3100.5500, L501.0900, L100.0100, L3100.5800 #### [facility] [address] [place], [address] Comprehensive Metabolic Prof ilon 11-24-2023 Albumin [Mass/Vol] 3.5 g/dL Normal 3.2-5.0 [facility] Comment on above: Performed By: #### L 500.4050, L3100.5700, L400.2010, L3100.5500, L501.0900, L100.0100, L3100.5800 #### [facility] [address] [place], [address] Albumin/Globulin [Mass ratio] 1.0 {ratio} Normal 0.9-2.4 [facility] Comment on above: Performed By: #### L 500.4050, L3100.5700, L400.2010, L3100.5500, L501.0900, L100.0100, L3100.5800 #### [facility] [address] [place], [address] ALK P 68 U/L Normal 45-117 [facility] Comment on above: Performed By: #### L 500.4050, L3100.5700, L400.2010, L3100.5500, L501.0900, L100.0100, L3100.5800 #### [facility] [address] [place], [address] ALT [Catalytic activity/Vol] 19 U/L Normal 13-56 [facility] Comment on above: Performed By: #### L 500.4050, L3100.5700, L400.2010, L3100.5500, L501.0900, L100.0100, L3100.5800 #### [facility] [address] [place], [address] AST [Catalytic activity/Vol] 22 U/L Normal 15-37 [facility] Comment on above: Performed By: #### L 500.4050, L3100.5700, L400.2010, L3100.5500, L501.0900, L100.0100, L3100.5800 #### [facility] [address] [place], [address] Bilirubin [Mass/Vol] 0.50 mg/dL Normal 0.20-1.00 [facility] Comment on above: Result Comment: For patients on eltrombopag therapy, use of Dimension [place] TBIL is not recommended. Performed By: #### L 500.4050, L3100.5700, L400.2011, L3100.5500, L501.0900, L100.0100, L3100.5800 #### [facility] [address] [place], [address] BUN/CRE 16.4 RATIO Normal 10-20 [facility] Comment on above: Performed By: #### L 500.4050, L3100.5700, L400.2010, L3100.5500, L501.0900, L100.0100, L3100.5800 #### [facility] [address] [place], [address] CA,Total 9.4 mg/dL Normal 8.5-10.1 [facility] Comment on above: Performed By: #### L 500.4050, L3100.5700, L400.2010, L3100.5500, L501.0900, L100.0100, L3100.5800 #### [facility] [address] [place], [address] Chloride [Moles/Vol] 107 mmol/L Normal 98-107 [facility] Comment on above: Performed By: #### L 500.4050, L3100.5700, L400.2010, L3100.5500, L501.0900, L100.0100, L3100.5800 #### [facility] [address] [place], [address] CO2 [Moles/Vol] 27.0 mmol/L Normal 21.0-32.0 [facility] Comment on above: Performed By: #### L 500.4050, L3100.5700, L400.2010, L3100.5500, L501.0900, L100.0100, L3100.5800 #### [facility] [address] [place], [address] Creatinine [Mass/Vol] 0.73 mg/dL Normal 0.55-1.02 [facility] Comment on above: Result Comment: The validity of the calculated GFR GFRAA in patients over 70 years has not been determined. Clinical correlation is essential. Performed By: #### L 500.4050, L3100.5700, L400.2010, L3100.5500, L501.0900, L100.0100, L3100.5800 #### [facility] [address] [place], [address] EST GFR - AA 106 mL/min Normal >60 [facility] Comment on above: Result Comment: Afri can Romanian GFR Calc Performed By: #### L 500.4050, L3100.5700, L400.2010, L3100.5500, L501.0900, L100.0100, L3100.5800 #### [facility] [address] [place], [address] GAP 4 Low 5-15 [facility] Comment on above: Performed By: #### L 500.4050, L3100.5700, L400.2010, L3100.5500, L501.0900, L100.0100, L3100.5800 #### [facility] [address] [place], [address] GFR/1.73 sq M.predicted among non-blacks MDRD (S/P/Bld) [Vol rate/Area] 88 mL/min/{1.73_m2} Normal >60 [facility] Comment on above: Result Comment: Non- GFR Calc Performed By: #### L 500.4050, L3100.5700, L400.2010, L3100.5500, L501.0900, L100.0100, L3100.5800 #### [facility] [address] [place], [address] Globulin (S) [Mass/Vol] 3.6 g/dL Normal 2.2-4.2 [facility] Comment on above: Performed By: #### L 500.4050, L3100.5700, L400.2010, L3100.5500, L501.0900, L100.0100, L3100.5800 #### [facility] [address] [place], [address] Glucose [Mass/Vol] 84 mg/dL Normal 74-106 [facility] Comment on above: Performed By: #### L 500.4050, L3100.5700, L400.2010, L3100.5500, L501.0900, L100.0100, L3100.5800 #### [facility] [address] [place], [address] Potassium [Moles/Vol] 4.4 mmol/L Normal 3.5-5.1 [facility] Comment on above: Performed By: #### L 500.4050, L3100.5700, L400.2010, L3100.5500, L501.0900, L100.0100, L3100.5800 #### [facility] [address] [place], [address] Sodium [Moles/Vol] 138 mmol/L Normal 136-145 [facility] Comment on above: Performed By: #### L 500.4050, L3100.5700, L400.2010, L3100.5500, L501.0900, L100.0100, L3100.5800 #### [facility] [address] [place], [address] T PROT 7.1 g/dL Normal 6.4-8.2 [facility] Comment on above: Performed By: #### L 500.4050, L3100.5700, L400.2010, L3100.5500, L501.0900, L100.0100, L3100.5800 #### [facility] [address] [place], [address] Urea nitrogen [Mass/Vol] 12 mg/dL Normal 7-18 [facility] Comment on above: Performed By: #### L 500.4050, L3100.5700, L400.2011, L3100.5500, L501.0900, L100.0100, L3100.5800 #### [facility] [address] [place], [address] Protein+Creatinine Ratio,Uri neon 11-24-2023 PROT:CRE RATIO 175 mg/g CRE Normal 0-200 [facility] Comment on above: Performed By: #### L 500.4050, L3100.5700, L400.2010, L3100.5500, L501.0900, L100.0100, L3100.5800 #### [facility] [address] [place], [address] Protein (U) [Mass/Vol] 14.5 mg/dL High <11.[address] [facility] Comment on above: Performed By: #### L 500.4050, L3100.5700, L400.2010, L3100.5500, L501.0900, L100.0100, L3100.5800 #### [facility] [address] [place], [address] UR CREAT 82.90 mg/dL Normal NO RANGE EST. [facility] Comment on above: Performed By: #### L 500.4050, L3100.5700, L400.2010, L3100.5500, L501.0900, L100.0100, L3100.5800 #### [facility] [address] [place], [address] Urinalysis, Routine (Dipstic k)on 11-24-2023 BILIRUBIN URINE Negative Normal Negative [facility] Comment on above: Order Comment: CLEAN CATCH Performed By: #### L 500.4050, L3100.5700, L400.2010, L3100.5500, L501.0900, L100.0100, L3100.5800 #### [facility] [address] [place], [address] Clarity (U) Clear Normal Clear [facility] Comment on above: Order Comment: CLEAN CATCH Performed By: #### L 500.4050, L3100.5700, L400.2010, L3100.5500, L501.0900, L100.0100, L3100.5800 #### [facility] [address] [place], [address] Color (U) Yellow Normal Yellow [facility] Comment on above: Order Comment: CLEAN CATCH Performed By: #### L 500.4050, L3100.5700, L400.2010, L3100.5500, L501.0900, L100.0100, L3100.5800 #### [facility] [address] [place], [place], [facility] GLUCOSE, UR Normal Normal Normal [facility] Comment on above: Order Comment: CLEAN CATCH Performed By: #### L 500.4050, L3100.5700, L400.2010, L3100.5500, L501.0900, L100.0100, L3100.5800 #### [facility] [address] [place], [address] KETONE UR Negative Normal Negative [facility] Comment on above: Order Comment: CLEAN CATCH Performed By: #### L 500.4050, L3100.5700, L400.2010, L3100.5500, L501.0900, L100.0100, L3100.5800 #### [facility] [address] [place], [address] LEUK ESTERASE Negative Normal Negative [facility] Comment on above: Order Comment: CLEAN CATCH Performed By: #### L 500.4050, L3100.5700, L400.2010, L3100.5500, L501.0900, L100.0100, L3100.5800 #### [facility] [address] [place], [address] Nitrite Ql (U) Negative Normal Negative [facility] Comment on above: Order Comment: CLEAN CATCH Performed By: #### L 500.4050, L3100.5700, L400.2011, L3100.5500, L501.0900, L100.0100, L3100.5800 #### [facility] [address] [place], [address] OCCULT BLOOD-UR Negative Normal Negative [facility] Comment on above: Order Comment: CLEAN CATCH Performed By: #### L 500.4050, L3100.5700, L400.2010, L3100.5500, L501.0900, L100.0100, L3100.5800 #### [facility] [address] [place], [address] pH UR 7.0 Normal 5.0 - 8.0 [facility] Comment on above: Order Comment: CLEAN CATCH Performed By: #### L 500.4050, L3100.5700, L400.2010, L3100.5500, L501.0900, L100.0100, L3100.5800 #### [facility] [address] [place], [address] PROT DIPSTX Negative Normal Negative [facility] Comment on above: Order Comment: CLEAN CATCH Performed By: #### L 500.4050, L3100.5700, L400.2010, L3100.5500, L501.0900, L100.0100, L3100.5800 #### [facility] [address] [place], [address] SP.GR. DIPSTX 1.010 Normal 1.002-1.030 [facility] Comment on above: Order Comment: CLEAN CATCH Performed By: #### L 500.4050, L3100.5700, L400.2010, L3100.5500, L501.0900, L100.0100, L3100.5800 #### [facility] [address] [place], [address] UROBILI Normal Normal Normal [facility] Comment on above: Order Comment: CLEAN CATCH Performed By: #### L 500.4050, L3100.5700, L400.2011, L3100.5500, L501.0900, L100.0100, L3100.5800 #### [facility] [address] [place], [address] Androstanoloneon 11-13-2023 Androstanolone [Mass/Vol] 18.5 pg/mL Low 24.0-208.0 [facility] Comment on above: Result Comment: INTE RPRETIVE INFORMATION: 9-z-Vdtwhijuqkqucptfwdf by [employer] Mass Spectrometry, Serum This test was developed and its performance characteristics determined by [facility]. It has not been cleared or approved by the US Food and Drug Administration. This test was performed in a CLIA certified laboratory and is intended for clinical purposes. Performed By: [facility] [address] [place] [address] Chemical Process Engineer: Lance Shannon MD, PhD CLIA Number: [id number] Performed By: #### 3 016-3 #### CARLITOS ROBERTSON ([id number]) [facility] ([facility]) [address] [place] [address]235 CBC W Auto Differential pane l (Bld)on 11-13-2023 Basophils (Bld) [#/Vol] 0.02 x10*3/uL Normal 0.00-0.10 [facility] Comment on above: Performed By: #### 5 7021-8 #### CARLITOS ROBERTSON ([id number]) [facility] ([facility]) [address] [place] [address] 63187 Basophils/100 WBC (Bld) 0.8 % Normal 0.0-2.0 [facility] Comment on above: Performed By: #### 5 7021-8 #### CARLITOS ROBERTSON ([id number]) [facility] ([facility]) [address] [place] [address] 50450 Eosinophils (Bld) [#/Vol] 0.07 x10*3/uL Normal 0.00-0.70 [facility] Comment on above: Performed By: #### 5 7021-8 #### CARLITOS ROBERTSON ([id number]) [facility] ([facility]) [address] [place] [address] 23178 Eosinophils/100 WBC (Bld) 2.7 % Normal 0.0-6.0 [facility] Comment on above: Performed By: #### 7021-8 #### CARLITOS ROBERTSON ([id number]) [facility] ([facility]) [address] [place] [address] 06660 Erythrocyte distribution width (RBC) [Ratio] 12.3 % Normal 11.5-14.5 [facility] Comment on above: Performed By: #### 7021-8 #### CARLITOS ROBERTSON ([id number]) [facility] ([facility]) [address] [place] [address] 67413 Hematocrit (Bld) [Volume fraction] 40.9 % Normal 36.0-46.0 [facility] Comment on above: Performed By: #### 7021-8 #### CARLITOS ROBERTSON ([id number]) [facility] ([facility]) [address] [place] [address] 67861 Hemoglobin (Bld) [Mass/Vol] 13.1 g/dL Normal 12.0-16.0 [facility] Comment on above: Performed By: #### 5 7021-8 #### CARLITOS ROBERTSON ([id number]) [facility] ([facility]) [address] [place] [address] 90925 Immature granulocytes (Bld) [#/Vol] 0.00 x10*3/uL Normal 0.00-0.70 [facility] Comment on above: Performed By: #### 5 7021-8 #### CARLITOS ROBERTSON ([id number]) [facility] ([facility]) [address] [place] [address] 51198 Immature granulocytes/100 WBC (Bld) 0.0 % Normal 0.0-0.9 [facility] Comment on above: Result Comment: Sharona ture Granulocyte Count (IG) includes promyelocytes, myelocytes and metamyelocytes but does not include bands. Percent differential counts (%) should be interpreted in the context of the absolute cell counts (cells/UL). Performed By: #### 5 7021-8 #### CARLITOS ROBERTSON ([id number]) [facility] ([facility]) [address] [place] [address] Lymphocytes (Bld) [#/Vol] 0.66 x10*3/uL Low 1.20-4.80 [facility] Comment on above: Performed By: #### 5 7021-8 #### CARLITOS ROBERTSON ([id number]) [facility] ([facility]) [address] [place] [address] Lymphocytes/100 WBC (Bld) 25.1 % Normal 13.0-44.0 [facility] Comment on above: Performed By: #### 5 7021-8 #### CARLITOS ROBERTSON ([id number]) [facility] ([facility]) [address] [place] [address] 78047 MCH (RBC) [Entitic mass] 32.3 pg Normal 26.0-34.0 [facility] Comment on above: Performed By: #### 5 7021-8 #### CARLITOS ROBERTSON ([id number]) [facility] ([facility]) [address] [place] [address] 60553 MCHC (RBC) [Mass/Vol] 32.0 g/dL Normal 32.0-36.0 [facility] Comment on above: Performed By: #### 5 7021-8 #### CARLITOS ROBERTSON ([id number]) [facility] ([facility]) [address] [place] [address] 82940 MCV (RBC) [Entitic vol] 101 fL High 80-100 [facility] Comment on above: Performed By: #### 5 7021-8 #### CARLITOS ROBERTSON ([id number]) [facility] ([facility]) [address] [place] [address] 85257 Monocytes (Bld) [#/Vol] 0.39 x10*3/uL Normal 0.10-1.00 [facility] Comment on above: Performed By: #### 5 7021-8 #### CARLITOS ROBERTSON ([id number]) [facility] ([facility]) [address] [place] [address] 75695 Monocytes/100 WBC (Bld) 14.8 % Normal 2.0-10.0 [facility] Comment on above: Performed By: #### 5 7021-8 #### CARLITOS ROBERTSON ([id number]) [facility] ([facility]) [address] [place] [address] 10610 Neutrophils (Bld) [#/Vol] 1.49 x10*3/uL Normal 1.20-7.70 [facility] Comment on above: Result Comment: Perc ent differential counts (%) should be interpreted in the context of the absolute cell counts (cells/uL). Performed By: #### 5 7021-8 #### CARLITOS ROBERTSON ([id number]) [facility] ([facility]) [address] [place] [address] 32919 Neutrophils/100 WBC (Bld) 56.6 % Normal 40.0-80.0 [facility] Comment on above: Performed By: #### 5 7021-8 #### CARLITOS ROBERTSON ([id number]) [facility] ([facility]) [address] [place] [address] 89422 Nucleated RBC/100 WBC (Bld) [Ratio] 0.0 /100 WBCs Normal 0.0-0.0 [facility] Comment on above: Performed By: #### 5 7021-8 #### CARLITOS ROBERTSON ([id number]) [facility] ([facility]) [address] [place] [address] 61436 Platelets (Bld) [#/Vol] 181 x10*3/uL Normal 150-450 [facility] Comment on above: Performed By: #### 5 7021-8 #### CARLITOS ROBERTSON ([id number]) [facility] ([facility]) [address] [place] [address] 78188 RBC (Bld) [#/Vol] 4.05 x10*6/uL Normal 4.00-5.20 [facility] Comment on above: Performed By: #### 5 7021-8 #### CARLITOS ROBERTSON ([id number]) [facility] ([facility]) [address] [place] [address] 48673 WBC (Bld) [#/Vol] 2.6 x10*3/uL Low 4.4-11.3 [facility] Comment on above: Performed By: #### 5 7021-8 #### CARLITOS ROBERTSON ([id number]) [facility] ([facility]) [address] [place] [address] 48093 Calcidiolon 11-13-2023 25-hydroxyvitamin D3 [Mass/Vol] 57 ng/mL Normal 30-100 [facility] Comment on above: Order Comment: Defic iency: < 20 ng/mlInsufficiency: 20-29 ng/mlSufficiency: 30-100 ng/mlThis assay accurately quantifies the sum of Vitamin D3, 25-Hydroxy and Vitamin D2,25-Hydroxy. Performed By: #### 2 4331-1 #### CARLITOS ROBERTSON ([id number]) [facility] ([facility]) [address] [place] [address] 90364 Cobalaminson 11-13-2023 Cobalamin (Vitamin B12) [Mass/Vol] 936 pg/mL High 211-911 [facility] Comment on above: Performed By: #### 2 132-9 #### MINNA Goodwin ([id number]) [facility] ([facility]) [address] [place] [address] 13870 Comprehensive metabolic 2000 panelon 11-13-2023 Albumin BCP dye [Mass/Vol] 4.2 g/dL Normal 3.4-5.0 [facility] Comment on above: Performed By: #### 2 4323-8 #### CARLITOS ROBERTSON ([id number]) [facility] ([facility]) [address] [place] [address] 79206 ALP [Catalytic activity/Vol] 55 U/L Normal 33-110 [facility] Comment on above: Performed By: #### 2 4323-8 #### CARLITOS ROBERTSON ([id number]) [facility] ([facility]) [address] [place] [address] ALT With P-5'-P [Catalytic activity/Vol] 12 U/L Normal 7-45 [facility] Comment on above: Result Comment: Usha ents treated with Sulfasalazine may generate falsely decreased results for ALT. Performed By: #### 2 4323-8 #### CARLITOS ROBERTSON ([id number]) [facility] ([facility]) [address] [place] [address] Anion gap [Moles/Vol] 11 mmol/L Normal 10-20 [facility] Comment on above: Performed By: #### 2 4322-8 #### CARLITOS ROBERTSON ([id number]) [facility] ([facility]) [address] [place] [address] AST With P-5'-P [Catalytic activity/Vol] 20 U/L Normal 9-39 [facility] Comment on above: Performed By: #### 2 4322-8 #### CARLITOS ROBERTSON ([id number]) [facility] ([facility]) [address] [place] [address] Bilirubin [Mass/Vol] 0.5 mg/dL Normal 0.0-1.2 [facility] Comment on above: Performed By: #### 2 4322-8 #### CARLITOS ROBERTSON ([id number]) [facility] ([facility]) [address] [place] [address] Calcium [Mass/Vol] 9.3 mg/dL Normal 8.6-10.3 [facility] Comment on above: Performed By: #### 2 3-8 #### CARLITOS ROBERTSON ([id number]) [facility] ([facility]) [address] [place] [address] Chloride [Moles/Vol] 104 mmol/L Normal 98-107 [facility] Comment on above: Performed By: #### 2 3-8 #### CARLITOS ROBERTSON ([id number]) [facility] ([facility]) [address] [place] [address] CO2 [Moles/Vol] 28 mmol/L Normal 21-32 [facility] Comment on above: Performed By: #### 2 4323-8 #### CARLITOS ROBERTSON ([id number]) [facility] ([facility]) [address] [place] [address] 75000 Creatinine [Mass/Vol] 0.71 mg/dL Normal 0.50-1.05 [facility] Comment on above: Performed By: #### 2 4323-8 #### CARLITOS ROBERTSON ([id number]) [facility] ([facility]) [address] [place] [address] 04491 GFR/1.73 sq M.predicted MDRD (S/P/Bld) [Vol rate/Area] mL/min/{1.73_m2} Normal >60 [facility] Comment on above: Result Comment: Calc ulations of estimated GFR are performed using the 2020 CKD-EPI Study Refit equation without the race variable for the IDMS-Traceable creatinine methods. https://jasn.asnjournals.org/content/early//ASN.2020 545542 Performed By: #### 2 4323-8 #### CARLITOS ROBERTSON ([id number]) [facility] ([facility]) [address] [place] [address] 34431 Glucose [Mass/Vol] 83 mg/dL Normal 74-99 [facility] Comment on above: Performed By: #### 2 4323-8 #### CARLITOS ROBERTSON ([id number]) [facility] ([facility]) [address] [place] [address] 25145 Potassium [Moles/Vol] 4.5 mmol/L Normal 3.5-5.3 [facility] Comment on above: Performed By: #### 2 4323-8 #### CARLITOS ROBERTSON ([id number]) [facility] ([facility]) [address] [place] [address] 98523 Protein [Mass/Vol] 6.8 g/dL Normal 6.4-8.2 [facility] Comment on above: Performed By: #### 2 4323-8 #### CARLITOS ROBERTSON ([id number]) [facility] ([facility]) [facility] [place] [address] Sodium [Moles/Vol] 138 mmol/L Normal 136-145 [facility] Comment on above: Performed By: #### 2 4323-8 #### CARLITOS ROBERTSON ([id number]) [facility] ([facility]) [address] [place] [address] 10445 Urea nitrogen [Mass/Vol] 16 mg/dL Normal 6-23 [facility] Comment on above: Performed By: #### 2 4323-8 #### CARLITOS ROBERTSON ([id number]) [facility] ([facility]) [address] [place] [address] 86964 Dehydroepiandrosteroneon DHEA [Mass/Vol] 0.756 ng/mL Normal 0.630-4.700 [facility] Comment on above: Result Comment: INTERPRETIVE INFORMATION: Dehydroepiandrosterone, Females 18 years and older: Postmenopausal: 0.60-5.73 ng/mL REFERENCE INTERVAL: Dehydroepiandrosterone by TMS Access complete set of age- and/or gender-specific reference intervals for this test in the [facility] ([employer]). This test was developed and its performance characteristics determined by [facility]. It has not been cleared or approved by the US Food and Drug Administration. This test was performed in a CLIA certified laboratory and is intended for clinical purposes. Performed By: [facility] [address] [place] [address] 39722 Chemical Process Engineer: Lance Shannon MD, PhD CLIA Number: [id number] Performed By: #### 3 016-3 #### CARLITOS ROBERTSON ([id number]) [facility] ([facility]) [address] [place] [address] 69075 Dehydroepiandrosterone sulfa jazmín 11-13-2023 DHEA-S [Mass/Vol] 32 ug/dL Normal 30-260 [facility] Comment on above: Order Comment: MATUR ITY-BASED [...] By: #### 2 4331-1 #### CARLITOS ROBERTSON ([id number]) [facility] ([facility]) [address] [place], [place] [address] Estroneon 11-13-2023 E1 [Mass/Vol] 16.9 pg/mL [facility] Comment on above: Result Comment: REFE RENCE INTERVAL: Estrone by Prosecuting Attorney Pre-menopausal: Early follicular <150.0 pg/mL Pre-menopausal: Late follicular 100.0-250.0 pg/mL Pre-menopausal: Luteal <200.0 pg/mL Post-menopausal 3.0-32.0 pg/mL INTERPRETIVE INFORMATION: Estrone by Prosecuting Attorney For a complete set of all established reference intervals, refer to [employer]/Tests/Pub/[id number]. This test was developed and its performance characteristics determined by [facility]. It has not been cleared or approved by the US Food and Drug Administration. This test was performed in a CLIA certified laboratory and is intended for clinical purposes. Performed By: [facility] [address] [place] [address] 66406 Chemical Process Engineer: Lance Shannon MD, PhD CLIA Number: [id number] Performed By: #### 3 016-3 #### CARLITOS ROBERTSON ([id number]) [facility] ([facility]) [address] [place], [place] [address] Ferritinon 11-13-2023 Ferritin [Mass/Vol] 157 ng/mL High 8-150 [facility] Comment on above: Performed By: #### 2 276-4 #### CARLITOS ROBERTSON ([id number]) [facility] ([facility]) [address] [place] [address] 97616 Folateon 11-13-2023 Folate [Mass/Vol] 18.4 ng/mL Normal >5.0 [facility] Comment on above: Order Comment: Low < 3.4Borderline 3.4-5.0Normal >5.0Patients receiving more than 5 mg/day of biotin may have interference in test results. A sample should be taken no sooner than eight hours after previous dose. Contact the testing laboratory for additional information. Performed By: #### 2 4331-1 #### CARLITOS ROBERTSON ([id number]) [facility] ([facility]) [address] [place] [address] Follitropin and Lutropin oscar el Qnon 11-13-2023 Follitropin Qn 99.4 IU/L [facility] Comment on above: Result Comment: FSH Ref Values Follicular 2.0-12.0 IU/L Mid-Cycle 12.0-25.0 IU/L Luteal Phase 2.0-12.0 IU/L Menopause 30.0-150.0 IU/L Pre-puberty 50% Adult IU/L Adult Male 2.0-10.0 IU/L Infants 0.0-1.0 IU/L Performed By: #### 2 4331-1 #### CARLITOS ROBERTSON ([id number]) [facility] ([facility]) [address] [place] [address] Lutropin Qn 48.6 IU/L [facility] Comment on above: Result Comment: LH R eference Values Follicular Phase 1.9-12.5 IU/L Mid-Cycle 8.7-76.3 IU/L Luteal Phase 0.5-16.9 IU/L Post Menopause 5.0-55.2 IU/L Children 0- 6.0 IU/L Adult Male 18-70 years 1.5- 9.3 IU/L Adult Male >70 years 3.1-34.6 IU/L Performed By: #### 2 4331-1 #### CARLITOS ROBERTSON ([id number]) [facility] ([facility]) [facility] [place] [id number] HbA1c (Bld) [Mass fraction]o n 11-13-2023 Average glucose Estimated from glycated hemoglobin (Bld) [Mass/Vol] 103 mg/dL Normal Not Established [facility] Comment on above: Order Comment: Diagn osis of Yyapuzqw-JsxjshNjo-Kaucjfvm: < or = 5.6%Increased risk for developing diabetes: 5.7-6.4%Diagnostic of diabetes: > or = 6.5% Performed By: #### 2 4331-1 #### CARLITOS ROBERTSON ([id number]) [facility] ([facility]) [address] [place], [place] [address] Hemoglobin A1c/Hemoglobin.to reggie 11-13-2023 HbA1c (Bld) [Mass fraction] 5.2 % Normal see below [facility] Comment on above: Order Comment: Diagn osis of Utmisatq-CrcinoOjv-Geqyellw: < or = 5.6%Increased risk for developing diabetes: 5.7-6.4%Diagnostic of diabetes: > or = 6.5% Performed By: #### 2 4331-1 #### CARLITOS ROBERTSON ([id number]) [facility] ([facility]) [address] [place] [address] 81108 Homocysteineon 11-13-2023 Homocysteine [Moles/Vol] 10.44 umol/L Normal 5.00-13.90 [facility] Comment on above: Order Comment: Refer ence values apply to fasting specimens only. Non-fasting specimens produce slightly higher and likely clinically insignificant changes in homocysteine levels. Performed By: #### 2 4331-1 #### CARLITOS ROBERTSON ([id number]) [facility] ([facility]) [address] [place] [address] 67835 Insulinon 11-13-2023 Insulin Qn 5 u[IU]/mL Normal 3-25 [facility] Comment on above: Order Comment: Refer ence values apply to fasting specimens. Performed By: #### 2 4331-1 #### CARLITOS ROBERTSON ([id number]) [facility] ([facility]) [address] [place] [address] 08592 Iron and Iron binding capaci ty panelon 11-13-2023 Iron [Mass/Vol] 86 ug/dL Normal 35-150 [facility] Comment on above: Performed By: #### 5 0190-8 #### CARLITOS ROBERTSON ([id number]) [facility] ([facility]) [address] [place] [address] Iron binding capacity [Mass/Vol] 315 ug/dL Normal 240-445 [facility] Comment on above: Performed By: #### 5 0190-8 #### CARLITOS ROBERTSON ([id number]) [facility] ([facility]) [address] [place] [address] Iron binding capacity.unsaturated [Mass/Vol] 229 ug/dL Normal 110-370 [facility] Comment on above: Performed By: #### 5 0190-8 #### CARLITOS ROBERTSON ([id number]) [facility] ([facility]) [address] [place] [address] Iron saturation [Mass fraction] 27 % Normal 25-45 [facility] Comment on above: Performed By: #### 5 0190-8 #### CARLITOS ROBERTSON ([id number]) [facility] ([facility]) [address] [place] [address] Leptinon 11-13-2023 Leptin [Mass/Vol] 9.2 ng/mL Normal 0.5-15.2 [facility] Comment on above: Result Comment: INTE RPRETIVE INFORMATION: Leptin Quant by MARY ANNE This test was developed and its performance characteristics determined by [facility]. It has not been cleared or approved by the US Food and Drug Administration. This test was performed in a CLIA certified laboratory and is intended for clinical purposes. Performed By: [facility] [address] [place] [address] 12620 Chemical Process Engineer: Lance Shannon MD, PhD CLIA Number: [id number] Performed By: #### 3 016-3 #### CARLITOS ROBERTSON ([id number]) [facility] ([facility]) [address] [place] [address] MISCELLANEOUS LAB TESTon SCAN RESULT See Scanned Result [facility] Comment on above: Performed By: #### 3 016-3 #### CARLITOS ROBERTSON ([id number]) [facility] ([facility]) [address] [place] [address] Performed By: #### 2 132-9 #### CARLITOS ROBERTSON ([id number]) [facility] ([facility]) [address] [place] [address]291 NMR LIPOPROTEINon 11-13-2023 Cholesterol [Mass/Vol] 148 mg/dL Normal 100-199 [facility] Comment on above: Order Comment: TSH t esting is performed using different testing methodology at [facility] than at other [facility]. Direct result comparisons should only be made within the same method. Performed By: #### 3 016-3 #### CARLITOS ROBERTSON ([id number]) [facility] ([facility]) [address] [place], [place] [address] Cholesterol in HDL [Mass/Vol] 81 mg/dL Normal >39 [facility] Comment on above: Order Comment: TSH t esting is performed using different testing methodology at [facility] than at other [facility]. Direct result comparisons should only be made within the same method. Performed By: #### 3 016-3 #### CARLITOS ROBERTSON ([id number]) [facility] ([facility]) [address] [place], [place] [address] Cholesterol in LDL [Mass/Vol] 55 mg/dL Normal 0-99 [facility] Comment on above: Order Comment: TSH t esting is performed using different testing methodology at [facility] than at other [facility]. Direct result comparisons should only be made within the same method. Result Comment: Opti mal < 100 Above optimal 100 - 129 Borderline 130 - 159 High 160 - 189 Very high > 189 Performed By: #### 3 016-3 #### CARLITOS ROBERTSON ([id number]) [facility] ([facility]) [address] [place], [place] [address] Lipoprotein.alpha [Moles/Vol] 29.6 umol/L Low >=30.5 [facility] Comment on above: Order Comment: TSH t esting is performed using different testing methodology at [facility] than at other [facility]. Direct result comparisons should only be made within the same method. Performed By: #### 3 016-3 #### CARLITOS ROBERTSON ([id number]) [facility] ([facility]) [address] [place] [address] 65252 Lipoprotein.beta.subpar ticle [Entitic length] 21.4 nm Normal >20.5 [facility] Comment on above: Order Comment: TSH t esting is performed using different testing methodology at [facility] than at other [facility]. Direct result comparisons should only [...] By: #### 3 016-3 #### CARLITOS ROBERTSON ([id number]) [facility] ([facility]) [address] [place], [place] [address] Lipoprotein.beta.subpar ticle [Moles/Vol] 559 nmol/L Normal <1000 [facility] Comment on above: Order Comment: TSH t esting is performed using different testing methodology at [facility] than at other [facility]. Direct result comparisons should only be made within the same method. Result Comment: Low < 1000 Moderate 1000 - 1299 Borderline-High 1300 - 1599 High 1600 - 2000 Very High > 2000 Performed By: #### 3 016-3 #### CARLITOS ROBERTSON ([id number]) [facility] ([facility]) [address] [place] [address] Lipoprotein.beta.subpar ticle.small [Moles/Vol] <90 Normal <=527 [facility] Comment on above: Order Comment: TSH t esting is performed using different testing methodology at [facility] than at other [facility]. Direct result comparisons should only be made within the same method. Performed By: #### 3 016-3 #### CARLITOS ROBERTSON ([id number]) [facility] ([facility]) [address] [place], [place] [address] Triglyceride [Mass/Vol] 57 mg/dL Normal 0-149 [facility] Comment on above: Order Comment: TSH t esting is performed using different testing methodology at [facility] than at other [facility]. Direct result comparisons should only be made within the same method. Performed By: #### 3 016-3 #### CARLITOS ROBERTSON ([id number]) [facility] ([facility]) [address] [place] [address] 03773 Sex hormone binding globulin on 11-13-2023 Sex hormone binding globulin [Moles/Vol] 103 nmol/L Normal 17-125 [facility] Comment on above: Result Comment: REFE RENCE INTERVAL: Sex Hormone Binding Globulin Access complete set of age- and/or gender-specific reference intervals for this test in the [facility] Directory ([employer]). Performed By: [facility] [address] [place] [address] 51091 Chemical Process Engineer: Lance Shannon MD, PhD CLIA Number: [id number] Performed By: #### 3 016-3 #### CARLITOS ROBERTSON ([id number]) [facility] ([facility]) [address] [place], [place] [address] THYROGLOBULIN AND ANTITHYROG LOBULINon 11-13-2023 THYROGLOBULIN 4.2 ng/mL Normal 1.3-31.8 [facility] Comment on above: Result Comment: INTE RPRETIVE INFORMATION: Thyroglobulin, Serum or Plasma Specimens negative for thyroglobulin antibodies (TgAb) are tested for thyroglobulin (Tg) by chemiluminescent immunoassay (MARY ANNE) using the [employer] Access DxI method. Specimens with TgAb results [...] By: #### 3 016-3 #### CARLITOS ROBERTSON ([id number]) [facility] ([facility]) [address] [place] [address]203 THYROGLOBULIN AB (IU/ML) IN SER/PLAS <0.9 Normal 0.0-4.0 [facility] Comment on above: Result Comment: INTE RPRETIVE INFORMATION: Thyroglobulin Antibody A value of 4.0 IU/mL or less indicates a negative result for thyroglobulin antibodies. The Thyroglobulin Antibody assay is being performed using the [employer] Access DxI method. Performed By: #### 3 016-3 #### CARLITOS ROBERTSON ([id number]) [facility] ([facility]) [address] [place] [address] 52573 THYROGLOBULIN LC-MS/MS Not Applicable Normal 1.3-31.8 [facility] Comment on above: Result Comment: INTE RPRETIVE INFORMATION: Thyroglobulin by LC-MS/MS, Serum/Plasma Lower limit of detection for Thyroglobulin by LC-MS/MS is 0.5 ng/mL. This test was developed and its performance characteristics determined by [facility]. It has not been cleared or approved by the US Food and Drug Administration. This test was performed in a CLIA certified laboratory and is intended for clinical purposes. Performed By: [facility] [address] [place] [address] 84821 Chemical Process Engineer: Lance Shannon MD, PhD CLIA Number: [id number] Performed By: #### 3 016-3 #### CARLITOS ROBERTSON ([id number]) [facility] ([facility]) [address] [place] [address] 30260 Testosteroneon 11-13-2023 Testosterone [Mass/Vol] 8 ng/dL Normal 2-45 [facility] Comment on above: Result Comment: For additional information, please refer to http://education.Samplesaint/faq/ XhyojBgrhbahvtlioRTVEVMYJG540 (This link is being provided for informational/ educational purposes only.) This test was developed and its analytical performance characteristics have been determined by [facility] [place] [place]. It has not been cleared or approved by the U.S. Food and Drug Administration. This assay has been validated pursuant to the CLIA regulations and is used for clinical purposes. Performed By: #### 3 016-3 #### CARLITOS ROBERTSON ([id number]) [facility] ([facility]) [address] [place] [address] 62808 Thyroperoxidase Abon 024 TPO Ab Qn 30 [IU]/mL Normal <=60 [facility] Comment on above: Order Comment: Negat raisa: <=60 U/mLPositive: >60 U/mL Performed By: #### 2 4331-1 #### CARLITOS ROBERTSON ([id number]) [facility] ([facility]) [address] [place] [address] 93101 Thyrotropinon 11-13-2023 TSH Qn 1.65 m[IU]/L Normal 0.44-3.98 [facility] Comment on above: Order Comment: TSH t esting is performed using different testing methodology at [facility] than at [facility]. Direct result comparisons should only be made within the same method. Performed By: #### 3 016-3 #### MINNA Goodwin ([id number]) [facility] ([facility]) [address] [place], [place] [id number] Thyroxine.freeon 11-13-2023 Free T4 [Mass/Vol] 1.21 ng/dL Normal 0.78-1.48 [facility] Comment on above: Order Comment: Thyro xine Free testing is performed using different testing methodology at [facility] than at [facility]. Direct result comparisons should only [...] By: #### 2 4331-1 #### CARLITOS ROBERTSON ([id number]) [facility] ([facility]) [address] [place] [address] 29675 Triiodothyronineon T3 [Mass/Vol] 128 ng/dL Normal 60-200 [facility] Comment on above: Performed By: #### 2 4331-1 #### URBINA MARCELO ([id number]) [facility] ([facility]) [address] [place], [place] [address] Triiodothyronine.reverseon 0 11-13-2023 T3.reverse [Mass/Vol] 15.7 ng/dL Normal 9.0-27.0 [facility] Comment on above: Result Comment: INTE RPRETIVE INFORMATION: Triiodothyronine, Reverse - LC-MS/MS This test was developed and its performance characteristics determined by [facility]. It has not been cleared or approved by the US Food and Drug Administration. This test was performed in a CLIA certified laboratory and is intended for clinical purposes. Performed By: [facility] [address] [place] [address] 48240 Chemical Process Engineer: Lance Shannon MD, PhD CLIA Number: [id number] Performed By: #### 3 016-3 #### URBINA MARCELO ([id number]) [facility] ([facility]) [address] [place], [place] [address] BI MAMMO BILATERAL SCREENING TOMOSYNTHESISon 09-30-2023 BI MAMMO BILATERAL SCREENING TOMOSYNTHESIS Interpreted By: Saji Tao, STUDY: BI MAMMO BILATERAL SCREENING TOMOSYNTHESIS; 09/30/2023 3:19 pm ACCESSION NUMBER(S): [id number] ORDERING CLINICIAN: ROOSEVELT CARTER INDICATION: Screening. COMPARISON: [...] Saji Tao 10/01/2023 9:02 AM Dictation workstation: [id number] [facility] Cobalaminson 09-28-2023 Cobalamin (Vitamin B12) [Mass/Vol] 976 pg/mL High 211-911 [facility] Comment on above: Performed By: #### 2 132-9 #### CARLITOS ROBERTSON ([id number]) [facility] ([facility]) [address] [place] [address] 74202 Lipid 1996 panelon Cholesterol [Mass/Vol] 142 mg/dL Normal 0-199 [facility] Comment on above: Result Comment: Age [...] By: #### 2 4331-1 #### CARLITOS ROBERTSON ([id number]) [facility] ([facility]) [address] [place] [address] 52247 Cholesterol in HDL [Mass/Vol] 75.0 mg/dL [facility] Comment on above: Result Comment: Age Very Low Low Normal High 0-19 Y < 35 < 40 40-45 ---- 20-24 Y ---- < 40 >45 ---- >24 Y ---- < 40 40-60 >60 Performed By: #### 2 4331-1 #### CARLITOS ROBERTSON ([id number]) [facility] ([facility]) [facility] [place] [address] Cholesterol in LDL [Mass/Vol] 56 mg/dL Normal <=99 [facility] Comment on above: Result Comment: Near Borderline AGE Desirable Optimal High High Very High 0-19 Y 0 - 109 --- 110-129 >/= 130 ---- 20-24 Y 0 - 119 --- 120-159 >/= 160 ---- >24 Y 0 - 99 100-129 130-159 160-189 >/=190 Performed By: #### 2 4331-1 #### CARLITOS ROBERTSON ([id number]) [facility] ([facility]) [address] [place] [address] 34519 Cholesterol in VLDL [Mass/Vol] 11 mg/dL Normal 0-40 [facility] Comment on above: Performed By: #### 2 4331-1 #### CARLITOS ROBERTSON ([id number]) [facility] ([facility]) [address] [place] [address] 73200 CHOLESTEROL/HDL RATIO 1.9 Normal [facility] Comment on above: Result Comment: Ref Values Desirable < 3.4 High Risk > 5.0 Performed By: #### 2 4331-1 #### CARLITOS ROBERTSON ([id number]) [facility] ([facility]) [address] [place] [address] 93119 NON HDL CHOLESTEROL 67 mg/dL Normal 0-149 [facility] Comment on above: Result Comment: Age Desirable Borderline High High Very High 0-19 Y 0 - 119 120 - 144 >/= 145 >/= 160 20-24 Y 0 - 149 150 - 189 >/= 190 ---- >24 Y 30 mg/dL above LDL Cholesterol goal Performed By: #### 2 4331-1 #### CARLITOS ROBERTSON ([id number]) [facility] ([facility]) [address] [place] [address] 25625 Triglyceride [Mass/Vol] 56 mg/dL Normal 0-149 [facility] Comment on above: Result Comment: Age Desirable [...] By: #### 2 4331-1 #### CARLITOS ROBERTSON ([id number]) [facility] ([facility]) [facility] [place] [address] Magnesiumon 09-28-2023 Magnesium [Mass/Vol] 1.91 mg/dL Normal 1.60-2.40 [facility] Comment on above: Performed By: #### 1 9123-9 #### CARLITOS ROBERTSON ([id number]) [facility] ([facility]) [address] [place] [address] 65167 Thyrotropinon 09-28-2023 TSH Qn 2.38 m[IU]/L Normal 0.44-3.98 [facility] Comment on above: Order Comment: TSH t esting is performed using different testing methodology at [facility] than at other [facility]. Direct result comparisons should only be made within the same method. Performed By: #### 3 016-3 #### CARLITOS ROBERTSON ([id number]) [facility] ([facility]) [address] [place] [address] 50748 Anti-dsDNA Abon 09-04-2023 ANTI-DNA (DS)AB 26 IU/mL Abnormal 0-9 [facility] Comment on above: Result Comment: Nega tive <5 Equivocal 5 - 9 Positive >9 Performed at: [address] [id number] Sales Force Developer: Pacheco Gramajo PhD, Phone: [phone] Performed By: #### L 500.4050, L3100.5700, L400.2011, L3100.5500, L501.0900, L100.0100, L3100.5800 #### [facility] [address] [place], [address] Complement C3on 09-04-2023 COMP C3 95 mg/dL Normal 82-167 [facility] Comment on above: Result Comment: Perf ormed at: [facility] [address] [id number] Sales Force Developer: Pacheco Gramajo PhD, Phone: [phone] Performed By: #### L 500.4050, L3100.5700, L400.2010, L3100.5500, L501.0900, L100.0100, L3100.5800 #### [facility] [address] [place], [address] Complement C4on 09-04-2023 COMPLEMENT, C4 15 mg/dL Normal 12-38 [facility] Comment on above: Performed By: #### L 500.4050, L3100.5700, L4.2010, L3100.5500, L501.0900, L100.0100, L3100.5800 #### [facility] [address] [place], [address] CBC W/Diff, Automatedon 08-06 Absolute Lymph 0.61 X10 3/uL Low 0.83-4.51 [facility] Comment on above: Performed By: #### L 500.4050, L3100.5700, L400.2010, L3100.5500, L501.0900, L100.0100, L3100.5800 #### [facility] [address] [place], [address] Absolute Neut 1.5 X10 3/uL Low 2.0-7.7 [facility] Comment on above: Performed By: #### L 500.4050, L3100.5700, L400.2010, L3100.5500, L501.0900, L100.0100, L3100.5800 #### [facility] [address] [place], [address] Basophils/100 WBC (Bld) 1.1 % High 0-1 [facility] Comment on above: Performed By: #### L 500.4050, L3100.5700, L400.2011, L3100.5500, L501.0900, L100.0100, L3100.5800 #### [facility] [address] [place], [address] Eosinophils/100 WBC (Bld) 3.4 % Normal 0-5 [facility] Comment on above: Performed By: #### L 500.4050, L3100.5700, L400.2010, L3100.5500, L501.0900, L100.0100, L3100.5800 #### [facility] [address] [place], [address] Erythrocyte distribution width (RBC) [Ratio] 12.7 % Normal 11.6-14.6 [facility] Comment on above: Performed By: #### L 500.4050, L3100.5700, L400.2010, L3100.5500, L501.0900, L100.0100, L3100.5800 #### [facility] [address] [place], [address] Hematocrit (Bld) [Volume fraction] 41.0 % Normal 37-47 [facility] Comment on above: Performed By: #### L 500.4050, L3100.5700, L400.2010, L3100.5500, L501.0900, L100.0100, L3100.5800 #### [facility] [address] [place], [address] Hemoglobin (Bld) [Mass/Vol] 13.3 g/dL Normal 12.0-15.0 [facility] Comment on above: Performed By: #### L 500.4050, L3100.5700, L400.2010, L3100.5500, L501.0900, L100.0100, L3100.5800 #### [facility] [address] [place], [address] IG% 0.000 Normal 0.0-0.9 [facility] Comment on above: Result Comment: IG% - Immature Granulocytes (promyelocytes, myelocytes and metamyelocytes) > 1% indicates that a LEFT SHIFT is Present. Performed By: #### L 500.4050, L3100.5700, L400.2010, L3100.5500, L501.0900, L100.0100, L3100.5800 #### [facility] [address] [place], [address] Lymphocytes/100 WBC (Bld) 22.8 % Normal 19-41 [facility] Comment on above: Performed By: #### L 500.4050, L3100.5700, L400.2010, L3100.5500, L501.0900, L100.0100, L3100.5800 #### [facility] [address] [place], [address] MCH (RBC) [Entitic mass] 32.3 pg High 27.0-32.0 [facility] Comment on above: Performed By: #### L 500.4050, L3100.5700, L400.2010, L3100.5500, L501.0900, L100.0100, L3100.5800 #### [facility] [address] [place], [address] MCHC (RBC) [Mass/Vol] 32.4 g/dL Normal 32-36 [facility] Comment on above: Performed By: #### L 500.4050, L3100.5700, L400.2010, L3100.5500, L501.0900, L100.0100, L3100.5800 #### [facility] [address] [place], [address] MCV (RBC) [Entitic vol] 99.5 fL High 81-99 [facility] Comment on above: Performed By: #### L 500.4050, L3100.5700, L400.2011, L3100.5500, L501.0900, L100.0100, L3100.5800 #### [facility] [address] [place], [address] Monocytes/100 WBC (Bld) 17.6 % High 0-10 [facility] Comment on above: Performed By: #### L 500.4050, L3100.5700, L400.2010, L3100.5500, L501.0900, L100.0100, L3100.5800 #### [facility] [address] [place], [address] Neutrophils/100 WBC (Bld) 55.1 % Normal 47-70 [facility] Comment on above: Performed By: #### L 500.4050, L3100.5700, L400.2010, L3100.5500, L501.0900, L100.0100, L3100.5800 #### [facility] [address] [place], [address] Nucleated RBC (Bld) [#/Vol] 0 10*3/uL Normal 0-5 [facility] Comment on above: Performed By: #### L 500.4050, L3100.5700, L400.2010, L3100.5500, L501.0900, L100.0100, L3100.5800 #### [facility] [address] [place], [address] Platelet mean volume (Bld) [Entitic vol] 11.2 fL Normal 6.2-12.0 [facility] Comment on above: Performed By: #### L 500.4050, L3100.5700, L400.2010, L3100.5500, L501.0900, L100.0100, L3100.5800 #### [facility] [address] [place], [address] Platelets (Bld) [#/Vol] 195 10*3/uL Normal 150-450 [facility] Comment on above: Performed By: #### L 500.4050, L3100.5700, L400.2011, L3100.5500, L501.0900, L100.0100, L3100.5800 #### [facility] [address] [place], [address] RBC (Bld) [#/Vol] 4.12 10*6/uL Low 4.2-5.4 [facility] Comment on above: Performed By: #### L 500.4050, L3100.5700, L400.2010, L3100.5500, L501.0900, L100.0100, L3100.5800 #### [facility] [address] [place], [address] RDW SD 46.4 fl High 35.1-43.9 [facility] Comment on above: Performed By: #### L 500.4050, L3100.5700, L400.2010, L3100.5500, L501.0900, L100.0100, L3100.5800 #### [facility] [address] [place], [address] WBC (Bld) [#/Vol] 2.7 10*3/uL Low 4.4-11.0 [facility] Comment on above: Performed By: #### L 500.4050, L3100.5700, L400.2010, L3100.5500, L501.0900, L100.0100, L3100.5800 #### [facility] [address] [place], [address] Comprehensive Metabolic Prof ilon 09-03-2023 Albumin [Mass/Vol] 3.7 g/dL Normal 3.2-5.0 [facility] Comment on above: Performed By: #### L 500.4050, L3100.5700, L400.2010, L3100.5500, L501.0900, L100.0100, L3100.5800 #### [facility] [address] [place], [address] Albumin/Globulin [Mass ratio] 1.1 {ratio} Normal 0.9-2.4 [facility] Comment on above: Performed By: #### L 500.4050, L3100.5700, L400.2010, L3100.5500, L501.0900, L100.0100, L3100.5800 #### [facility] [address] [place], [address] ALK P 72 U/L Normal 45-117 [facility] Comment on above: Performed By: #### L 500.4050, L3100.5700, L400.2010, L3100.5500, L501.0900, L100.0100, L3100.5800 #### [facility] [address] [place], [address] ALT [Catalytic activity/Vol] 27 U/L Normal 13-56 [facility] Comment on above: Performed By: #### L 500.4050, L3100.5700, L400.2010, L3100.5500, L501.0900, L100.0100, L3100.5800 #### [facility] [address] [place], [address] AST [Catalytic activity/Vol] 26 U/L Normal 15-37 [facility] Comment on above: Performed By: #### L 500.4050, L3100.5700, L400.2010, L3100.5500, L501.0900, L100.0100, L3100.5800 #### [facility] [address] [place], [address] Bilirubin [Mass/Vol] 0.40 mg/dL Normal 0.20-1.00 [facility] Comment on above: Result Comment: For patients on eltrombopag therapy, use of Dimension [place] TBIL is not recommended. Performed By: #### L 500.4050, L3100.5700, L400.2010, L3100.5500, L501.0900, L100.0100, L3100.5800 #### [facility] [address] [place], [address] BUN/CRE 20.9 RATIO High 10-20 [facility] Comment on above: Performed By: #### L 500.4050, L3100.5700, L400.2010, L3100.5500, L501.0900, L100.0100, L3100.5800 #### [facility] [address] [place], [address] CA,Total 9.1 mg/dL Normal 8.5-10.1 [facility] Comment on above: Performed By: #### L 500.4050, L3100.5700, L4.2010, L3100.5500, L501.0900, L100.0100, L3100.5800 #### [facility] [address] [place], [address] Chloride [Moles/Vol] 106 mmol/L Normal 98-107 [facility] Comment on above: Performed By: #### L 500.4050, L3100.5700, L400.2010, L3100.5500, L501.0900, L100.0100, L3100.5800 #### [facility] [address] [place], [address] CO2 [Moles/Vol] 28.0 mmol/L Normal 21.0-32.0 [facility] Comment on above: Performed By: #### L 500.4050, L3100.5700, L400.2010, L3100.5500, L501.0900, L100.0100, L3100.5800 #### [facility] [address] [place], [address] Creatinine [Mass/Vol] 0.62 mg/dL Normal 0.55-1.02 [facility] Comment on above: Result Comment: The validity of the calculated GFR GFRAA in patients over 70 years has not been determined. Clinical correlation is essential. Performed By: #### L 500.4050, L3100.5700, L400.2011, L3100.5500, L501.0900, L100.0100, L3100.5800 #### [facility] [address] [place], [address] EST GFR - AA 129 mL/min Normal >60 [facility] Comment on above: Result Comment: Afri can Romanian GFR Calc Performed By: #### L 500.4050, L3100.5700, L400.2010, L3100.5500, L501.0900, L100.0100, L3100.5800 #### [facility] [address] [place], [place], [id number] (865) GAP 3 Low 5-15 [facility] Comment on above: Performed By: #### L 500.4050, L3100.5700, L400.2010, L3100.5500, L501.0900, L100.0100, L3100.5800 #### [facility] [address] [place], [address] GFR/1.73 sq M.predicted among non-blacks MDRD (S/P/Bld) [Vol rate/Area] 106 mL/min/{1.73_m2} Normal >60 [facility] Comment on above: Result Comment: Non- GFR Calc Performed By: #### L 500.4050, L3100.5700, L400.2010, L3100.5500, L501.0900, L100.0100, L3100.5800 #### [facility] [address] [place], [address] Globulin (S) [Mass/Vol] 3.4 g/dL Normal 2.2-4.2 [facility] Comment on above: Performed By: #### L 500.4050, L3100.5700, L400.2011, L3100.5500, L501.0900, L100.0100, L3100.5800 #### [facility] [address] [place], [address] Glucose [Mass/Vol] 83 mg/dL Normal 74-106 [facility] Comment on above: Performed By: #### L 500.4050, L3100.5700, L400.2010, L3100.5500, L501.0900, L100.0100, L3100.5800 #### [facility] [address] [place], [address] Potassium [Moles/Vol] 4.1 mmol/L Normal 3.5-5.1 [facility] Comment on above: Performed By: #### L 500.4050, L3100.5700, L400.2010, L3100.5500, L501.0900, L100.0100, L3100.5800 #### [facility] [address] [place], [address] Sodium [Moles/Vol] 137 mmol/L Normal 136-145 [facility] Comment on above: Performed By: #### L 500.4050, L3100.5700, L400.2010, L3100.5500, L501.0900, L100.0100, L3100.5800 #### [facility] [address] [place], [address] T PROT 7.1 g/dL Normal 6.4-8.2 [facility] Comment on above: Performed By: #### L 500.4050, L3100.5700, L400.2010, L3100.5500, L501.0900, L100.0100, L3100.5800 #### [facility] [address] [place], [address] Urea nitrogen [Mass/Vol] 13 mg/dL Normal 7-18 [facility] Comment on above: Performed By: #### L 500.4050, L3100.5700, L400.2011, L3100.5500, L501.0900, L100.0100, L3100.5800 #### [facility] [address] [place], [address] Protein+Creatinine Ratio,Uri neon 09-03-2023 PROT:CRE RATIO 152 mg/g CRE Normal 0-200 [facility] Comment on above: Performed By: #### L 500.4050, L3100.5700, L400.2010, L3100.5500, L501.0900, L100.0100, L3100.5800 #### [facility] [address] [place], [address] Protein (U) [Mass/Vol] 21.7 mg/dL High <11.[address] [facility] Comment on above: Performed By: #### L 500.4050, L3100.5700, L400.2010, L3100.5500, L501.0900, L100.0100, L3100.5800 #### [facility] [address] [place], [address] UR CREAT 143.00 mg/dL Normal NO RANGE EST. [facility] Comment on above: Performed By: #### L 500.4050, L3100.5700, L400.2010, L3100.5500, L501.0900, L100.0100, L3100.5800 #### [facility] [address] [place], [address] Urinalysis, Routine (Dipstic k)on 09-03-2023 BILIRUBIN URINE Negative Normal Negative [facility] Comment on above: Order Comment: CLEAN CATCH Performed By: #### L 500.4050, L3100.5700, L400.2010, L3100.5500, L501.0900, L100.0100, L3100.5800 #### [facility] [address] [place], [address] Clarity (U) Clear Normal Clear [facility] Comment on above: Order Comment: CLEAN CATCH Performed By: #### L 500.4050, L3100.5700, L400.2011, L3100.5500, L501.0900, L100.0100, L3100.5800 #### [facility] [address] [place], [address] Color (U) Yellow Normal Yellow [facility] Comment on above: Order Comment: CLEAN CATCH Performed By: #### L 500.4050, L3100.5700, L400.2011, L3100.5500, L501.0900, L100.0100, L3100.5800 #### [facility] [address] [place], [address] GLUCOSE, UR Normal Normal Normal [facility] Comment on above: Order Comment: CLEAN CATCH Performed By: #### L 500.4050, L3100.5700, L400.2010, L3100.5500, L501.0900, L100.0100, L3100.5800 #### [facility] [address] [place], [address] KETONE UR Negative Normal Negative [facility] Comment on above: Order Comment: CLEAN CATCH Performed By: #### L 500.4050, L3100.5700, L400.2010, L3100.5500, L501.0900, L100.0100, L3100.5800 #### [facility] [address] [place], [address] LEUK ESTERASE Negative Normal Negative [facility] Comment on above: Order Comment: CLEAN CATCH Performed By: #### L 500.4050, L3100.5700, L400.2010, L3100.5500, L501.0900, L100.0100, L3100.5800 #### [facility] [address] [place], [address] Nitrite Ql (U) Negative Normal Negative [facility] Comment on above: Order Comment: CLEAN CATCH Performed By: #### L 500.4050, L3100.5700, L400.2011, L3100.5500, L501.0900, L100.0100, L3100.5800 #### [facility] [address] [place], [address] OCCULT BLOOD-UR Negative Normal Negative [facility] Comment on above: Order Comment: CLEAN CATCH Performed By: #### L 500.4050, L3100.5700, L400.2010, L3100.5500, L501.0900, L100.0100, L3100.5800 #### [facility] [address] [place], [address] pH UR 6.5 Normal 5.0 - 8.0 [facility] Comment on above: Order Comment: CLEAN CATCH Performed By: #### L 500.4050, L3100.5700, L400.2010, L3100.5500, L501.0900, L100.0100, L3100.5800 #### [facility] [address] [place], [address] PROT DIPSTX 15 mg/dl Abnormal Negative [facility] Comment on above: Order Comment: CLEAN CATCH Performed By: #### L 500.4050, L3100.5700, L400.2010, L3100.5500, L501.0900, L100.0100, L3100.5800 #### [facility] [address] [place], [address] SP.GR. DIPSTX 1.010 Normal 1.002-1.030 [facility] Comment on above: Order Comment: CLEAN CATCH Performed By: #### L 500.4050, L3100.5700, L400.2010, L3100.5500, L501.0900, L100.0100, L3100.5800 #### [facility] [address] [place], [address] UROBILI Normal Normal Normal [facility] Comment on above: Order Comment: CLEAN CATCH Performed By: #### L 500.4050, L3100.5700, L400.2011, L3100.5500, L501.0900, L100.0100, L3100.5800 #### [facility] [address] [place], [address] Basophil percentageOrdered B y: Ramon Dumont on 07-15-2023 Chloride [Moles/Vol] 104 mmol/L 98-107 [facility] Glucose [Mass/Vol] 81 mg/dL 74-106 [facility] Potassium [Moles/Vol] 4.6 mmol/L 3.5-5.1 [facility] Sodium [Moles/Vol] 137 mmol/L 136-145 [facility] - Chemistry and C hemistry - challengeOrdered By: Ramon Dumont on 07-15-2023 CO2 [Moles/Vol] 28.0 mmol/L 21.0-32.0 [facility] Urea nitrogen/Creatinine [Mass ratio] 20.5 mg/mg 10-20 [facility] No Panel InformationOrdered By: Ramon Dumont on 07-15-2023 Estimated GFR (MDRD) Amer 115 mL/min >60 [facility] Comment on above: GFR Calc Estimated GFR (MDRD) Non-Af Amer 95 mL/min >60 [facility] Comment on above: Non- GFR Calc Urine Microalbumin/Creatinine Ratio 8.5 mg/g CRE <30 [facility] Serum or plasma calcium evelyn urement (mass/volume)Ordered By: Ramon Dumont on 07-15-2023 Calcium [Mass/Vol] 9.2 mg/dL 8.5-10.1 [facility] Serum or plasma creatinine m easurement (mass/volume)Ordered By: Ramon Dumont on 07-15-2023 Creatinine [Mass/Vol] 0.68 mg/dL 0.55-1.02 [facility] Comment on above: The validity of the calculated GFR & GFRAA in patients over 70 years has not been determined. Clinical correlation is essential. Serum or plasma urea nitroge n measurement (mass/volume)Ordered By: Ramon Dumont on 07-15-2023 Urea nitrogen [Mass/Vol] 14 mg/dL 7-18 [facility] Thin prep Papanicolaou smear with manual screeningOrdered By: Ramon Dumont on 07-15-2023 Thin prep Papanicolaou smear with manual screening 5 5-15 [facility] Thin prep Papanicolaou smear with manual screening 10.3 mg/L NO RANGE EST. [facility] Urine creatinine measurement (mass/volume)Ordered By: Ramon Dumont on 07-15-2023 Creatinine (U) [Mass/Vol] 121.00 mg/dL NO RANGE EST. [facility] Absolute lymphocyte countOrd ered By: Milady Zambrano on 06-23-2023 Lymphocytes Auto (Unsp spec) [#/Vol] 0.57 10*3/uL 0.83-4.51 [facility] Automated lymphocyte count a s percentage of total leukocytesOrdered By: Milady Zambrano on 06-23-2023 Lymphocytes/100 WBC Auto (Unsp spec) 25.6 % 19-41 [facility] Basophil percentageOrdered B y: Milady Zambrano on 06-23-2023 Basophils/100 WBC (Bld) 0.9 % 0-1 [facility] Bilirubin [Mass/Vol] 0.40 mg/dL 0.20-1.00 [facility] Comment on above: For patients on eltr ombopag therapy, use of Dimension [place] TBIL is not recommended. Chloride [Moles/Vol] 106 mmol/L 98-107 [facility] Eosinophils/100 WBC (Bld) 3.6 % 0-5 [facility] Glucose [Mass/Vol] 82 mg/dL 74-106 [facility] Hemoglobin (Bld) [Mass/Vol] 12.9 g/dL 12.0-15.0 [facility] Monocytes/100 WBC (Bld) 15.7 % 0-10 [facility] Neutrophils (Bld) [#/Vol] 1.2 10*3/uL 2.0-7.7 [facility] Neutrophils/100 WBC (Bld) 53.8 % 47-70 [facility] Potassium [Moles/Vol] 4.1 mmol/L 3.5-5.1 [facility] Protein [Mass/Vol] 7.1 g/dL 6.4-8.2 [facility] Sodium [Moles/Vol] 137 mmol/L 136-145 [facility] WBC (Bld) [#/Vol] 2.2 10*3/uL 4.4-11.0 [facility] Bilirubin Test strip Ql (U)O rdered By: Milady Zambrano on 06-23-2023 Bilirubin Ql (U) Negative Negative [facility] Blood manual differential co mment interpretation (narrative result)Ordered By: Milady Zambrano on 06-23-2023 Manual differential comment Samir (Bld) [Interp] COMMENT [facility] Comment on above: LYMPHOPENIA NOTED Determination of erythrocyte mean corpuscular volume (MCV)Ordered By: Milady Zambrano on 06-23-2023 MCV (RBC) [Entitic vol] 98.1 fL 81-99 [facility] Erythrocyte distribution wid th ratioOrdered By: Milady Zambrano on 06-23-2023 Erythrocyte distribution width (RBC) [Ratio] 12.2 % 11.6-14.6 [facility] Erythrocyte distribution wid th standard deviationOrdered By: Milady Zambrano on 06-23-2023 Erythrocyte distribution width (RBC) [Entitic vol] 43.6 fL 35.1-43.9 [facility] Hematocrit Auto (Bld) [Volum e fraction]Ordered By: Milady Zambrano on 06-23-2023 Hematocrit (Bld) [Volume fraction] 40.5 % 37-47 [facility] Immature granulocytes/100 WB C Auto (Bld)Ordered By: Milady Zambrano on 06-23-2023 Immature granulocytes/100 WBC (Bld) 0.400 % 0.0-0.9 [facility] Comment on above: IG% - Immature Granu locytes (promyelocytes, myelocytes and metamyelocytes) > 1% indicates that a LEFT SHIFT is Present. Ketones Test strip Ql (U)Ord ered By: Milady Zambrano on 06-23-2023 Ketones Ql (U) Negative Negative [facility] - Chemistry and C hemistry - challengeOrdered By: Milady Zambrano on 06-23-2023 Albumin/Globulin [Mass ratio] 1.0 {ratio} 0.9-2.4 [facility] ALP [Catalytic activity/Vol] 73 U/L 45-117 [facility] ALT [Catalytic activity/Vol] 16 U/L 13-56 [facility] CO2 [Moles/Vol] 28.0 mmol/L 21.0-32.0 [facility] Globulin (S) [Mass/Vol] 3.6 g/dL 2.2-4.2 [facility] Urea nitrogen/Creatinine [Mass ratio] 20.3 mg/mg 10-20 [facility] - Hematology and Cell countsOrdered By: Milady Zambrano on 06-23-2023 MCH (RBC) [Entitic mass] 31.2 pg 27.0-32.0 [facility] MCHC (RBC) [Mass/Vol] 31.9 g/dL 32-36 [facility] Nucleated RBC/100 WBC (Bld) [Ratio] 0 % 0-5 [facility] Platelet mean volume (Bld) [Entitic vol] 11.1 fL 6.2-12.0 [facility] Platelets (Bld) [#/Vol] 193 10*3/uL 150-450 [facility] Nitrite Test strip Ql (U)Ord ered By: Milady Zambrano on 06-23-2023 Nitrite Ql (U) Negative Negative [facility] No Panel InformationOrdered By: Milady Zambrano on 06-23-2023 Complement C3 74 mg/dL 82-167 [facility] Comment on above: Performed at: [address] [id number] Director: Pacheco Gramajo PhD, Phone: [phone] Estimated GFR (MDRD) Amer 114 mL/min >60 [facility] Comment on above: GFR Calc Estimated GFR (MDRD) Non-Af Amer 94 mL/min >60 [facility] Comment on above: Non- GFR Calc Protein Test strip Ql (U)Ord ered By: Milady Zambrano on 06-23-2023 Protein Ql (U) Negative Negative [facility] RBC Auto (Bld) [#/Vol]Ordere d By: Milady Zambrano on 06-23-2023 RBC (Bld) [#/Vol] 4.13 10*6/uL 4.2-5.4 [facility] Review by pathologistOrdered By: Milady Zambrano on 06-23-2023 Pathologist review Samir (Unsp spec) [Interp] Reviewed [facility] Comment on above: Previous reported re sult: Melissa herman Edited by: ANDREA on 06/25/23:925Leukopenia and neutropenia.Clinical correlation necessary.Sj Geiger M.D. 06/25/23 AMENDED REPORT 06/25/23925 PATH REV previously reported as: Melissa herman Serum DNA double strand anti body assay (units/volume)Ordered By: Milady Zambrano on 06-23-2023 DNA double strand Ab Qn (S) 28 [IU]/mL 0-9 [facility] Comment on above: Negative <5 Equivoca l 5 - 9 Positive >9Performed at: [facility] [place] [id number] Director: Pacheco Gramajo PhD, Phone: [phone] Serum or plasma calcium evelyn urement (mass/volume)Ordered By: Milady Zambrano on 06-23-2023 Calcium [Mass/Vol] 9.2 mg/dL 8.5-10.1 [facility] Serum or plasma complement C 4 measurement (mass/volume)Ordered By: Milady Zambrano on 06-23-2023 Complement C4 [Mass/Vol] 11 mg/dL 12-38 [facility] Serum or plasma creatinine m easurement (mass/volume)Ordered By: Milady Zambrano on 06-23-2023 Creatinine [Mass/Vol] 0.69 mg/dL 0.55-1.02 [facility] Comment on above: The validity of the calculated GFR & GFRAA in patients over 70 years has not been determined. Clinical correlation is essential. Serum or plasma urea nitroge n measurement (mass/volume)Ordered By: Milady Zambrano on 06-23-2023 Urea nitrogen [Mass/Vol] 14 mg/dL 7-18 [facility] Thin prep Papanicolaou smear with manual screeningOrdered By: Milady Zambrano on 06-23-2023 Protein (U) [Mass/Vol] 11.2 mg/dL 0.0-11.[address] [facility] Thin prep Papanicolaou smear with manual screening 3.5 g/dL 3.2-5.0 [facility] Thin prep Papanicolaou smear with manual screening 26 U/L 15-37 [facility] Thin prep Papanicolaou smear with manual screening 3 5-15 [facility] Urine blood detectionOrdered By: Milady Zambrano on 06-23-2023 RBC Ql (U) Negative Negative [facility] Urine clarityOrdered By: Jessi Zambrano on 06-23-2023 Clarity (U) Clear Clear [facility] Urine color determinationOrd ered By: Milady Zambrano on 06-23-2023 Color (U) Yellow Yellow [facility] Urine creatinine measurement (mass/volume)Ordered By: Milady Zambrano on 06-23-2023 Creatinine (U) [Mass/Vol] 43.50 mg/dL NO RANGE EST. [facility] Urine glucose detectionOrder ed By: Milady Zambrano on 06-23-2023 Glucose Ql (U) Normal mg/dl Normal [facility] Urine leukocyte esterase det ection by dipstickOrdered By: Milady Zambrano on 06-23-2023 Leukocyte esterase Test strip Ql (U) Negative Negative [facility] Urine pHOrdered By: Milady hammond on 06-23-2023 pH (U) 8.0 [pH] 5.0 - 8.0 [facility] Urine protein/creatinine mas s ratioOrdered By: Milady Zambrano on 06-23-2023 Protein/Creatinine (U) [Mass ratio] 257 mg/g CRE 0-200 [facility] Urine specific gravity measu rementOrdered By: Milady Zambrano on 06-23-2023 Specific gravity (U) [Rel density] 1.020 1.002-1.030 [facility] Urine urobilinogen measureme ntOrdered By: Milady Zambrano on 06-23-2023 Urobilinogen Ql (U) Normal mg/dl Normal [facility] Absolute lymphocyte countOrd ered By: Milady Zambrano on 04-22-2023 Lymphocytes Auto (Unsp spec) [#/Vol] 0.62 10*3/uL 0.83-4.51 [facility] Automated lymphocyte count a s percentage of total leukocytesOrdered By: Milady Zambrano on 04-22-2023 Lymphocytes/100 WBC Auto (Unsp spec) 25.7 % 19-41 [facility] Basophil percentageOrdered B y: Milady Zambrano on 04-22-2023 Basophils/100 WBC (Bld) 0.8 % 0-1 [facility] Bilirubin [Mass/Vol] 0.40 mg/dL 0.20-1.00 [facility] Comment on above: For patients on eltr ombopag therapy, use of Dimension [place] TBIL is not recommended. Chloride [Moles/Vol] 109 mmol/L 98-107 [facility] Eosinophils/100 WBC (Bld) 2.5 % 0-5 [facility] Glucose [Mass/Vol] 81 mg/dL 74-106 [facility] Hemoglobin (Bld) [Mass/Vol] 13.4 g/dL 12.0-15.0 [facility] Monocytes/100 WBC (Bld) 15.8 % 0-10 [facility] Neutrophils (Bld) [#/Vol] 1.3 10*3/uL 2.0-7.7 [facility] Neutrophils/100 WBC (Bld) 55.2 % 47-70 [facility] Potassium [Moles/Vol] 4.3 mmol/L 3.5-5.1 [facility] Protein [Mass/Vol] 7.3 g/dL 6.4-8.2 [facility] Sodium [Moles/Vol] 139 mmol/L 136-145 [facility] WBC (Bld) [#/Vol] 2.4 10*3/uL 4.4-11.0 [facility] Bilirubin Test strip Ql (U)O rdered By: Milady Zambrano on 04-22-2023 Bilirubin Ql (U) Negative Negative [facility] Complement C3 assayOrdered B y: Milady Zambrano on 04-22-2023 Complement C3 (Body fld) [Mass/Vol] 80 mg/dL 82-167 [facility] Comment on above: Performed at: [address] [id number] Director: Pacheco Gramajo PhD, Phone: [phone] Determination of erythrocyte mean corpuscular volume (MCV)Ordered By: Mialdy Zambrano on 04-22-2023 MCV (RBC) [Entitic vol] 99.8 fL 81-99 [facility] Erythrocyte distribution wid th ratioOrdered By: [facility] on 04-22-2023 Erythrocyte distribution width (RBC) [Ratio] 12.3 % 11.6-14.6 [facility] Erythrocyte distribution wid th standard deviationOrdered By: [facility] on [facility]23 Erythrocyte distribution width (RBC) [Entitic vol] 45.1 fL 35.1-43.9 [facility] Hematocrit Auto (Bld) [Volum e fraction]Ordered By: Miladyvannesa Zambrano on 04-22-2023 Hematocrit (Bld) [Volume fraction] 42.0 % 37-47 [facility] Immature granulocytes/100 WB C Auto (Bld)Ordered By: Miladyvannesa Zambrano on 04-22-2023 Immature granulocytes/100 WBC (Bld) 0.000 % 0.0-0.9 [facility] Comment on above: IG% - Immature Granu locytes (promyelocytes, myelocytes and metamyelocytes) > 1% indicates that a LEFT SHIFT is Present. Ketones Test strip Ql (U)Ord ered By: Milady Zambrano on 04-22-2023 Ketones Ql (U) Negative Negative [facility] - Chemistry and C hemistry - challengeOrdered By: Milady Zambrano on 04-22-2023 Albumin/Globulin [Mass ratio] 1.1 {ratio} 0.9-2.4 [facility] ALP [Catalytic activity/Vol] 77 U/L 45-117 [facility] ALT [Catalytic activity/Vol] 20 U/L 13-56 [facility] CO2 [Moles/Vol] 26.0 mmol/L 21.0-32.0 [facility] Globulin (S) [Mass/Vol] 3.5 g/dL 2.2-4.2 [facility] Urea nitrogen/Creatinine [Mass ratio] 18.7 mg/mg 10-20 [facility] - Hematology and Cell countsOrdered By: Milady Zambrano on 04-22-2023 MCH (RBC) [Entitic mass] 31.8 pg 27.0-32.0 [facility] MCHC (RBC) [Mass/Vol] 31.9 g/dL 32-36 [facility] Nucleated RBC/100 WBC (Bld) [Ratio] 0 % 0-5 [facility] Platelets (Bld) [#/Vol] 161 10*3/uL 150-450 [facility] Nitrite Test strip Ql (U)Ord ered By: Milady Zambrano on 04-22-2023 Nitrite Ql (U) Negative Negative [facility] No Panel InformationOrdered By: Milady Zambrano on 04-22-2023 Estimated GFR (MDRD) Amer 113 mL/min >60 [facility] Comment on above: GFR Calc Estimated GFR (MDRD) Non-Af Amer 93 mL/min >60 [facility] Comment on above: Non- GFR Calc Platelet mean volume Himanshu-Ec ker (Bld) [Entitic vol]Ordered By: Milady Zambrano on 04-22-2023 Platelet mean volume (Bld) [Entitic vol] 11.5 fL 6.2-12.0 [facility] Protein Test strip Ql (U)Ord ered By: Milady Zambrano on 04-22-2023 Protein Ql (U) Negative Negative [facility] RBC Auto (Bld) [#/Vol]Ordere d By: Milady Zambrano on 04-22-2023 RBC (Bld) [#/Vol] 4.21 10*6/uL 4.2-5.4 [facility] Serum DNA double strand anti body assay (units/volume)Ordered By: Mialdy Zambrano on 04-22-2023 DNA double strand Ab Qn (S) 35 [IU]/mL 0-9 [facility] Comment on above: Negative <5 Equivoca l 5 - 9 Positive >9Performed at: [facility], [place] [id number] Director: Pacheco Gramajo PhD, Phone: [phone] Serum or plasma calcium evelyn urement (mass/volume)Ordered By: Milady Zambrano on 04-22-2023 Calcium [Mass/Vol] 9.4 mg/dL 8.5-10.1 [facility] Serum or plasma complement C 4 measurement (mass/volume)Ordered By: Milady Zambrano on 04-22-2023 Complement C4 [Mass/Vol] 12 mg/dL 12-38 [facility] Serum or plasma creatinine m easurement (mass/volume)Ordered By: Milady Zambrano on 04-22-2023 Creatinine [Mass/Vol] 0.70 mg/dL 0.55-1.02 [facility] Comment on above: The validity of the calculated GFR & GFRAA in patients over 70 years has not been determined. Clinical correlation is essential. Serum or plasma urea nitroge n measurement (mass/volume)Ordered By: Milady Zambrano on 04-22-2023 Urea nitrogen [Mass/Vol] 13 mg/dL 7-18 [facility] Thin prep Papanicolaou smear with manual screeningOrdered By: Milady Zambrano on 04-22-2023 Protein (U) [Mass/Vol] 24.0 mg/dL 0.0-11.[address] [facility] Thin prep Papanicolaou smear with manual screening 3.8 g/dL 3.2-5.0 [facility] Thin prep Papanicolaou smear with manual screening 26 U/L 15-37 [facility] Thin prep Papanicolaou smear with manual screening 4 5-15 [facility] Urine blood detectionOrdered By: Milady Zambrano on 04-22-2023 RBC Ql (U) Negative Negative [facility] Urine clarityOrdered By: Jessi Zambrano on 04-22-2023 Clarity (U) Clear Clear [facility] Urine color determinationOrd ered By: Milady Zambrano on 04-22-2023 Color (U) Yellow Yellow [facility] Urine creatinine measurement (mass/volume)Ordered By: Milady Zambrano on 04-22-2023 Creatinine (U) [Mass/Vol] 115.00 mg/dL NO RANGE EST. [facility] Urine glucose detectionOrder ed By: Milady Zambrano on 04-22-2023 Glucose Ql (U) Normal mg/dl Normal [facility] Urine leukocyte esterase det ection by dipstickOrdered By: Milady Zambrano on 04-22-2023 Leukocyte esterase Test strip Ql (U) Negative Negative [facility] Urine pHOrdered By: Milady hammond on 04-22-2023 pH (U) 7.0 [pH] 5.0 - 8.0 [facility] Urine protein/creatinine mas s ratioOrdered By: Milady Zambrano on 04-22-2023 Protein/Creatinine (U) [Mass ratio] 209 mg/g CRE 0-200 [facility] Urine specific gravity measu rementOrdered By: Milady Zambrano on 04-22-2023 Specific gravity (U) [Rel density] 1.010 1.002-1.030 [facility] Urine urobilinogen measureme ntOrdered By: Milady Zambrano on 04-22-2023 Urobilinogen Ql (U) Normal mg/dl Normal [facility] Absolute lymphocyte countOrd ered By: Milady Zambrano on 03-19-2023 Lymphocytes Auto (Unsp spec) [#/Vol] 0.58 10*3/uL 0.83-4.51 [facility] Basophil percentageOrdered B y: Milady Zambrano on 03-19-2023 Basophils/100 WBC (Bld) 1.0 % 0-1 [facility] Bilirubin [Mass/Vol] 0.40 mg/dL 0.20-1.00 [facility] Comment on above: For patients on eltr ombopag therapy, use of Dimension [place] TBIL is not recommended. Chloride [Moles/Vol] 104 mmol/L 98-107 [facility] Eosinophils/100 WBC (Bld) 3.5 % 0-5 [facility] Glucose [Mass/Vol] 80 mg/dL 74-106 [facility] Neutrophils (Bld) [#/Vol] 0.9 10*3/uL 2.0-7.7 [facility] Neutrophils/100 WBC (Bld) 46.2 % 47-70 [facility] Potassium [Moles/Vol] 4.6 mmol/L 3.5-5.1 [facility] Protein [Mass/Vol] 7.0 g/dL 6.4-8.2 [facility] Sodium [Moles/Vol] 135 mmol/L 136-145 [facility] WBC (Bld) [#/Vol] 2.0 10*3/uL 4.4-11.0 [facility] Bilirubin Test strip Ql (U)O rdered By: Milady Zambrano on 03-19-2023 Bilirubin Ql (U) Negative Negative [facility] Blood erythrocytes count (nu mber/volume)Ordered By: Milady Zambrano on 03-19-2023 RBC (Bld) [#/Vol] 4.05 10*6/uL 4.2-5.4 [facility] Blood hemoglobin measurement (mass/volume)Ordered By: Milady Zambrano on 03-19-2023 Hemoglobin (Bld) [Mass/Vol] 12.8 g/dL 12.0-15.0 [facility] Blood lymphocytes/100 leukoc ytesOrdered By: Milady Zambrano on 03-19-2023 Lymphocytes/100 WBC (Bld) 28.9 % 19-41 [facility] Blood manual differential co mment interpretation (narrative result)Ordered By: Milady Zambrano on 03-19-2023 Manual differential comment Samir (Bld) [Interp] SCANNED [facility] Blood monocytes/100 leukocyt esOrdered By: Milady Zambrano on 03-19-2023 Monocytes/100 WBC (Bld) 19.9 % 0-10 [facility] Blood platelet mean volumeOr dered By: Milady Zambrano on 03-19-2023 Platelet mean volume (Bld) [Entitic vol] 11.1 fL 6.2-12.0 [facility] Determination of erythrocyte mean corpuscular volume (MCV)Ordered By: Milady Zambrano on 03-19-2023 MCV (RBC) [Entitic vol] 98.8 fL 81-99 [facility] Hematocrit Auto (Bld) [Volum e fraction]Ordered By: Milady Zambrano on 03-19-2023 Hematocrit (Bld) [Volume fraction] 40.0 % 37-47 [facility] Ketones Test strip Ql (U)Ord ered By: Milady Zambrano on 03-19-2023 Ketones Ql (U) Negative Negative [facility] Laboratory - Chemistry and C hemistry - challengeOrdered By: Milady Zambrano on 03-19-2023 ALP [Catalytic activity/Vol] 72 U/L 45-117 [facility] ALT [Catalytic activity/Vol] 23 U/L 13-56 [facility] CO2 [Moles/Vol] 28.0 mmol/L 21.0-32.0 [facility] Globulin (S) [Mass/Vol] 3.4 g/dL 2.2-4.2 [facility] Urea nitrogen/Creatinine [Mass ratio] 19.6 mg/mg 10-20 [facility] Laboratory - Hematology and Cell countsOrdered By: Milady Zambrano on 03-19-2023 Erythrocyte distribution width (RBC) [Entitic vol] 43.7 fL 35.1-43.9 [facility] Erythrocyte distribution width (RBC) [Ratio] 11.9 % 11.6-14.6 [facility] Immature granulocytes/100 WBC (Bld) 0.500 % 0.0-0.9 [facility] Comment on above: IG% - Immature Granu locytes (promyelocytes, myelocytes and metamyelocytes) > 1% indicates that a LEFT SHIFT is Present. MCH (RBC) [Entitic mass] 31.6 pg 27.0-32.0 [facility] Nucleated RBC/100 WBC (Bld) [Ratio] 0 % 0-5 [facility] MCHC Auto (RBC) [Mass/Vol]Or dered By: Milady Zambrano on 03-19-2023 MCHC (RBC) [Mass/Vol] 32.0 g/dL 32-36 [facility] Nitrite Test strip Ql (U)Ord ered By: Milady Zambrano on 03-19-2023 Nitrite Ql (U) Negative Negative [facility] No Panel InformationOrdered By: Milady Zambrano on 03-19-2023 Estimated GFR (MDRD) Amer 109 mL/min >60 [facility] Comment on above: GFR Calc Estimated GFR (MDRD) Non-Af Amer 90 mL/min >60 [facility] Comment on above: Non- GFR Calc Platelets bldOrdered By: Jessi Zambrano on 03-19-2023 Platelets (Bld) [#/Vol] 159 10*3/uL 150-450 [facility] Protein Test strip Ql (U)Ord ered By: Milady Zambrano on 03-19-2023 Protein Ql (U) 15 mg/dl Negative [facility] Review by pathologistOrdered By: Milady Zambrano on 03-19-2023 Pathologist review Samir (Unsp spec) [Interp] Reviewed [facility] Comment on above: Previous reported re sult: Melissa herman Edited by: RGOOD on 03/20/23:1321Leukopenia and neutropenia.Clinical correlation necessary.Sj Geiger M.D. 03/20/23 AMENDED REPORT 03/20/23 1321 PATH REV previously reported as: Melissa herman Serum DNA double strand anti body assay (units/volume)Ordered By: Milady Zambrano on 03-19-2023 DNA double strand Ab Qn (S) 30 [IU]/mL 0-9 [facility] Comment on above: Negative <5 Equivoca l 5 - 9 Positive >9Performed at: [facility] [id number] Director: Pacheco Gramajo PhD, Phone: [phone] Serum or plasma albumin evelyn urement (mass/volume)Ordered By: Milady Zambrano on 03-19-2023 Albumin [Mass/Vol] 3.6 g/dL 3.2-5.0 [facility] Serum or plasma albumin/glob ulin mass ratioOrdered By: Milady Zambrano on 03-19-2023 Albumin/Globulin [Mass ratio] 1.1 {ratio} 0.9-2.4 [facility] Serum or plasma calcium evelyn urement (mass/volume)Ordered By: Milady Zambrano on 03-19-2023 Calcium [Mass/Vol] 9.2 mg/dL 8.5-10.1 [facility] Serum or plasma complement C 3 measurement (mass/volume)Ordered By: Milady Zambrano on 03-19-2023 Complement C3 [Mass/Vol] 76 mg/dL 82-167 [facility] Comment on above: Performed at: - [address] [id number] Director: Pacheco Gramajo PhD, Phone: [phone] Serum or plasma complement C 4 measurement (mass/volume)Ordered By: Milady Zambrano on 03-19-2023 Complement C4 [Mass/Vol] 13 mg/dL 12-38 [facility] Serum or plasma creatinine m easurement (mass/volume)Ordered By: Milady Zambrano on 03-19-2023 Creatinine [Mass/Vol] 0.72 mg/dL 0.55-1.02 [facility] Comment on above: The validity of the calculated GFR & GFRAA in patients over 70 years has not been determined. Clinical correlation is essential. Serum or plasma urea nitroge n measurement (mass/volume)Ordered By: Milady Zambrano on 03-19-2023 Urea nitrogen [Mass/Vol] 14 mg/dL 7-18 [facility] Thin prep Papanicolaou smear with manual screeningOrdered By: Milady Zambrano on 03-19-2023 Thin prep Papanicolaou smear with manual screening 22 U/L 15-37 [facility] Thin prep Papanicolaou smear with manual screening 3 5-15 [facility] Urine blood detectionOrdered By: Milady Zambrano on 03-19-2023 RBC Ql (U) Negative Negative [facility] Urine clarityOrdered By: Jessi Zambrano on 03-19-2023 Clarity (U) Clear Clear [facility] Urine color determinationOrd ered By: Milady Zambrano on 03-19-2023 Color (U) Yellow Yellow [facility] Urine creatinine measurement (mass/volume)Ordered By: Milady Zambrano on 03-19-2023 Creatinine (U) [Mass/Vol] 126.00 mg/dL NO RANGE EST. [facility] Urine glucose detectionOrder ed By: Milady Zambrano on 03-19-2023 Glucose Ql (U) Normal mg/dl Normal [facility] Urine leukocyte esterase det ection by dipstickOrdered By: Milady Zambrano on 03-19-2023 Leukocyte esterase Test strip Ql (U) Negative Negative [facility] Urine pHOrdered By: Milady hammond on 03-19-2023 pH (U) 7.0 [pH] 5.0 - 8.0 [facility] Urine protein measurement (m ass/volume)Ordered By: Milady Zambrano on 03-19-2023 Protein (U) [Mass/Vol] 25.9 mg/dL 0.0-11.[address] [facility] Urine protein/creatinine mas s ratioOrdered By: Milady Zambrano on 03-19-2023 Protein/Creatinine (U) [Mass ratio] 206 mg/g CRE 0-200 [facility] Urine specific gravity measu rementOrdered By: [facility] on 03-19-2023 Specific gravity (U) [Rel density] 1.010 1.002-1.030 [facility] Urobilinogen Auto test strip Ql (U)Ordered By: Milady Zambrano on 03-19-2023 Urobilinogen Ql (U) Normal mg/dl Normal [facility] Absolute lymphocyte countOrd ered By: Milady Zambrano on 12-31-2022 Lymphocytes Auto (Unsp spec) [#/Vol] 0.71 10*3/uL 0.83-4.51 [facility] Basophil percentageOrdered B y: Milady Zambrano on 12-31-2022 Basophils/100 WBC (Bld) 0.6 % 0-1 [facility] Bilirubin [Mass/Vol] 0.30 mg/dL 0.20-1.00 [facility] Comment on above: For patients on eltr ombopag therapy, use of Dimension [place] TBIL is not recommended. Chloride [Moles/Vol] 104 mmol/L 98-107 [facility] Eosinophils/100 WBC (Bld) 2.8 % 0-5 [facility] Glucose [Mass/Vol] 77 mg/dL 74-106 [facility] Neutrophils (Bld) [#/Vol] 1.9 10*3/uL 2.0-7.7 [facility] Neutrophils/100 WBC (Bld) 60.0 % 47-70 [facility] Potassium [Moles/Vol] 4.3 mmol/L 3.5-5.1 [facility] Protein [Mass/Vol] 7.3 g/dL 6.4-8.2 [facility] Sodium [Moles/Vol] 138 mmol/L 136-145 [facility] WBC (Bld) [#/Vol] 3.2 10*3/uL 4.4-11.0 [facility] Bilirubin Test strip Ql (U)O rdered By: Milady Zambrano on 12-31-2022 Bilirubin Ql (U) Negative Negative [facility] Blood erythrocytes count (nu mber/volume)Ordered By: Milady Zambrano on 12-31-2022 RBC (Bld) [#/Vol] 4.18 10*6/uL 4.2-5.4 [facility] Blood hemoglobin measurement (mass/volume)Ordered By: Milady Zambrano on 12-31-2022 Hemoglobin (Bld) [Mass/Vol] 13.3 g/dL 12.0-15.0 [facility] Blood lymphocytes/100 leukoc ytesOrdered By: Milady Zambrano on 12-31-2022 Lymphocytes/100 WBC (Bld) 22.2 % 19-41 [facility] Blood monocytes/100 leukocyt esOrdered By: Milady Zambrano on 12-31-2022 Monocytes/100 WBC (Bld) 14.4 % 0-10 [facility] Blood platelet mean volumeOr dered By: Milady Zambrano on 12-31-2022 Platelet mean volume (Bld) [Entitic vol] 11.1 fL 6.2-12.0 [facility] Determination of erythrocyte mean corpuscular volume (MCV)Ordered By: Milady Zambrano on 12-31-2022 MCV (RBC) [Entitic vol] 101.7 fL 81-99 [facility] Hematocrit Auto (Bld) [Volum e fraction]Ordered By: Milady Zambrano on 12-31-2022 Hematocrit (Bld) [Volume fraction] 42.5 % 37-47 [facility] Ketones Test strip Ql (U)Ord ered By: Milady Zambrano on 12-31-2022 Ketones Ql (U) Negative Negative [facility] Laboratory - Chemistry and C hemistry - challengeOrdered By: Milady Zambrano on 12-31-2022 ALP [Catalytic activity/Vol] 82 U/L 45-117 [facility] ALT [Catalytic activity/Vol] 20 U/L 13-56 [facility] CO2 [Moles/Vol] 30.0 mmol/L 21.0-32.0 [facility] Globulin (S) [Mass/Vol] 3.7 g/dL 2.2-4.2 [facility] Urea nitrogen/Creatinine [Mass ratio] 19.9 mg/mg 10-20 [facility] Laboratory - Hematology and Cell countsOrdered By: Milady Zambrano on 12-31-2022 Erythrocyte distribution width (RBC) [Entitic vol] 46.8 fL 35.1-43.9 [facility] Erythrocyte distribution width (RBC) [Ratio] 12.6 % 11.6-14.6 [facility] Immature granulocytes/100 WBC (Bld) 0.000 % 0.0-0.9 [facility] Comment on above: IG% - Immature Granu locytes (promyelocytes, myelocytes and metamyelocytes) > 1% indicates that a LEFT SHIFT is Present. MCH (RBC) [Entitic mass] 31.8 pg 27.0-32.0 [facility] Nucleated RBC/100 WBC (Bld) [Ratio] 0 % 0-5 [facility] MCHC Auto (RBC) [Mass/Vol]Or dered By: Milady Zambrano on 12-31-2022 MCHC (RBC) [Mass/Vol] 31.3 g/dL 32-36 [facility] Nitrite Test strip Ql (U)Ord ered By: Milady Zambrano on 12-31-2022 Nitrite Ql (U) Negative Negative [facility] No Panel InformationOrdered By: Milady Zambrano on 12-31-2022 Estimated GFR (MDRD) Amer 103 mL/min >60 [facility] Comment on above: GFR Calc Estimated GFR (MDRD) Non-Af Amer 85 mL/min >60 [facility] Comment on above: Non- GFR Calc Urine Microalbumin/Creatinine Ratio 13.6 mg/g CRE <30 [facility] Platelets bldOrdered By: Jessi Zambrano on 12-31-2022 Platelets (Bld) [#/Vol] 204 10*3/uL 150-450 [facility] Protein Test strip Ql (U)Ord ered By: Milady Zambrano on 12-31-2022 Protein Ql (U) 15 mg/dl Negative [facility] Serum DNA double strand anti body assay (units/volume)Ordered By: Milady Zambrano on 12-31-2022 DNA double strand Ab Qn (S) 39 [IU]/mL 0-9 [facility] Comment on above: Negative <5 Equivoca l 5 - 9 Positive >9Performed at: [facility] [address] [id number] Director: Pacheco Gramajo PhD, Phone: [phone] Serum or plasma albumin evelyn urement (mass/volume)Ordered By: Milady Zambrano on 12-31-2022 Albumin [Mass/Vol] 3.6 g/dL 3.2-5.0 [facility] Serum or plasma albumin/glob ulin mass ratioOrdered By: Milady Zambrano on 12-31-2022 Albumin/Globulin [Mass ratio] 1.0 {ratio} 0.9-2.4 [facility] Serum or plasma calcium evelyn urement (mass/volume)Ordered By: Milady Zambrano on 12-31-2022 Calcium [Mass/Vol] 9.3 mg/dL 8.5-10.1 [facility] Serum or plasma complement C 3 measurement (mass/volume)Ordered By: Milady Zambrano on 12-31-2022 Complement C3 [Mass/Vol] 81 mg/dL 82-167 [facility] Comment on above: Performed at: [facility] [address] [id number] Director: Pacheco Gramajo PhD, Phone: [phone] Serum or plasma complement C 4 measurement (mass/volume)Ordered By: Milady Zambrano on 12-31-2022 Complement C4 [Mass/Vol] 11 mg/dL 12-38 [facility] Serum or plasma creatinine m easurement (mass/volume)Ordered By: Milady Zambrano on 12-31-2022 Creatinine [Mass/Vol] 0.75 mg/dL 0.55-1.02 [facility] Comment on above: The validity of the calculated GFR & GFRAA in patients over 70 years has not been determined. Clinical correlation is essential. Serum or plasma urea nitroge n measurement (mass/volume)Ordered By: Milady Zambrano on 12-31-2022 Urea nitrogen [Mass/Vol] 15 mg/dL 7-18 [facility] Thin prep Papanicolaou smear with manual screeningOrdered By: Milady Zambrano on 12-31-2022 Thin prep Papanicolaou smear with manual screening 16 U/L 15-37 [facility] Thin prep Papanicolaou smear with manual screening 4 5-15 [facility] Thin prep Papanicolaou smear with manual screening 15.9 mg/L NO RANGE EST. [facility] Urine blood detectionOrdered By: Milady Zambrano on 12-31-2022 RBC Ql (U) Negative Negative [facility] Urine clarityOrdered By: Jessi Zambrano on 12-31-2022 Clarity (U) Clear Clear [facility] Urine color determinationOrd ered By: Milady Zambrano on 12-31-2022 Color (U) Yellow Yellow [facility] Urine creatinine measurement (mass/volume)Ordered By: Milady Zambrano on 12-31-2022 Creatinine (U) [Mass/Vol] 117.00 mg/dL NO RANGE EST. [facility] Urine glucose detectionOrder ed By: Milady Zambrano on 12-31-2022 Glucose Ql (U) Normal mg/dl Normal [facility] Urine leukocyte esterase det ection by dipstickOrdered By: Milady Zambrano on 12-31-2022 Leukocyte esterase Test strip Ql (U) Negative Negative [facility] Urine pHOrdered By: Milady hammond on 12-31-2022 pH (U) 7.0 [pH] 5.0 - 8.0 [facility] Urine protein measurement (m ass/volume)Ordered By: Milady Zambrano on 12-31-2022 Protein (U) [Mass/Vol] 21.6 mg/dL 0.0-11.[address] [facility] Urine protein/creatinine mas s ratioOrdered By: Milady Zambrano on 12-31-2022 Protein/Creatinine (U) [Mass ratio] 185 mg/g CRE 0-200 [facility] Urine specific gravity measu rementOrdered By: Milady Zambrano on 12-31-2022 Specific gravity (U) [Rel density] 1.010 1.002-1.030 [facility] Urobilinogen Auto test strip Ql (U)Ordered By: Milady Zambrano on 12-31-2022 Urobilinogen Ql (U) Normal mg/dl Normal [facility] Absolute lymphocyte countOrd ered By: Milady Zambrano on 09-30-2022 Lymphocytes Auto (Unsp spec) [#/Vol] 0.62 10*3/uL 0.83-4.51 [facility] Basophil percentageOrdered B y: Milady Zambrano on 09-30-2022 Basophils/100 WBC (Bld) 0.3 % 0-1 [facility] Bilirubin [Mass/Vol] 0.40 mg/dL 0.20-1.00 [facility] Comment on above: For patients on eltr ombopag therapy, use of Dimension [place] TBIL is not recommended. Chloride [Moles/Vol] 103 mmol/L 98-107 [facility] Eosinophils/100 WBC (Bld) 1.2 % 0-5 [facility] Glucose [Mass/Vol] 82 mg/dL 74-106 [facility] Neutrophils (Bld) [#/Vol] 2.2 10*3/uL 2.0-7.7 [facility] Neutrophils/100 WBC (Bld) 66.8 % 47-70 [facility] Potassium [Moles/Vol] 4.6 mmol/L 3.5-5.1 [facility] Protein [Mass/Vol] 7.6 g/dL 6.4-8.2 [facility] Sodium [Moles/Vol] 136 mmol/L 136-145 [facility] WBC (Bld) [#/Vol] 3.2 10*3/uL 4.4-11.0 [facility] Bilirubin Test strip Ql (U)O rdered By: Milady Zambrano on 09-30-2022 Bilirubin Ql (U) Negative Negative [facility] Blood erythrocytes count (nu mber/volume)Ordered By: Milady Zambrano on 09-30-2022 RBC (Bld) [#/Vol] 4.18 10*6/uL 4.2-5.4 [facility] Blood hemoglobin measurement (mass/volume)Ordered By: Milady Zambrano on 09-30-2022 Hemoglobin (Bld) [Mass/Vol] 13.6 g/dL 12.0-15.0 [facility] Blood lymphocytes/100 leukoc ytesOrdered By: Milady Zambrano on 09-30-2022 Lymphocytes/100 WBC (Bld) 19.3 % 19-41 [facility] Blood monocytes/100 leukocyt esOrdered By: Milady Zambrano on 09-30-2022 Monocytes/100 WBC (Bld) 12.4 % 0-10 [facility] Blood platelet mean volumeOr dered By: Milady Zambrano on 09-30-2022 Platelet mean volume (Bld) [Entitic vol] 10.5 fL 6.2-12.0 [facility] Determination of erythrocyte mean corpuscular volume (MCV)Ordered By: Milady Zambrano on 09-30-2022 MCV (RBC) [Entitic vol] 100.7 fL 81-99 [facility] Hematocrit Auto (Bld) [Volum e fraction]Ordered By: Milady Zambrano on 09-30-2022 Hematocrit (Bld) [Volume fraction] 42.1 % 37-47 [facility] Ketones Test strip Ql (U)Ord ered By: Milady Zambrano on 09-30-2022 Ketones Ql (U) Negative Negative [facility] Laboratory - Chemistry and C hemistry - challengeOrdered By: Milady Zambrano on 09-30-2022 ALP [Catalytic activity/Vol] 82 U/L 45-117 [facility] ALT [Catalytic activity/Vol] 17 U/L 13-56 [facility] CO2 [Moles/Vol] 27.0 mmol/L 21.0-32.0 [facility] Globulin (S) [Mass/Vol] 3.8 g/dL 2.2-4.2 [facility] Urea nitrogen/Creatinine [Mass ratio] 15.7 mg/mg 10-20 [facility] Laboratory - Hematology and Cell countsOrdered By: Milady Zambrano on 09-30-2022 Erythrocyte distribution width (RBC) [Entitic vol] 44.2 fL 35.1-43.9 [facility] Erythrocyte distribution width (RBC) [Ratio] 11.9 % 11.6-14.6 [facility] Immature granulocytes/100 WBC (Bld) 0.000 % 0.0-0.9 [facility] Comment on above: IG% - Immature Granu locytes (promyelocytes, myelocytes and metamyelocytes) > 1% indicates that a LEFT SHIFT is Present. MCH (RBC) [Entitic mass] 32.5 pg 27.0-32.0 [facility] Nucleated RBC/100 WBC (Bld) [Ratio] 0 % 0-5 [facility] MCHC Auto (RBC) [Mass/Vol]Or dered By: Milady Zambrano on 09-30-2022 MCHC (RBC) [Mass/Vol] 32.3 g/dL 32-36 [facility] Nitrite Test strip Ql (U)Ord ered By: Milady Zambrano on 09-30-2022 Nitrite Ql (U) Negative Negative [facility] No Panel InformationOrdered By: Milady Zambrano on 09-30-2022 Estimated GFR (MDRD) Amer 93 mL/min >60 [facility] Comment on above: GFR Calc Estimated GFR (MDRD) Non-Af Amer 77 mL/min >60 [facility] Comment on above: Non- GFR Calc Urine Microalbumin/Creatinine Ratio 27.2 mg/g CRE <30 [facility] Platelets bldOrdered By: Jessi Zambrano on 09-30-2022 Platelets (Bld) [#/Vol] 180 10*3/uL 150-450 [facility] Protein Test strip Ql (U)Ord ered By: Milady Zambrano on 09-30-2022 Protein Ql (U) 15 mg/dl Negative [facility] Serum DNA double strand anti body assay (units/volume)Ordered By: Milady Zambrano on 09-30-2022 DNA double strand Ab Qn (S) 54 [IU]/mL 0-9 [facility] Comment on above: Negative <5 Equivoca l 5 - 9 Positive >9Performed at: [facility] [id number] Director: Pacheco Gramajo PhD, Phone: [phone] Serum or plasma albumin evelyn urement (mass/volume)Ordered By: Milady Zambrano on 09-30-2022 Albumin [Mass/Vol] 3.8 g/dL 3.2-5.0 [facility] Serum or plasma albumin/glob ulin mass ratioOrdered By: Milady Zambrano on 09-30-2022 Albumin/Globulin [Mass ratio] 1.0 {ratio} 0.9-2.4 [facility] Serum or plasma calcium evelyn urement (mass/volume)Ordered By: Milady Zambrano on 09-30-2022 Calcium [Mass/Vol] 9.7 mg/dL 8.5-10.1 [facility] Serum or plasma complement C 3 measurement (mass/volume)Ordered By: Milady Zambrano on 09-30-2022 Complement C3 [Mass/Vol] 88 mg/dL 82-167 [facility] Comment on above: Performed at: [address] Director: Pacheco Gramajo PhD, Phone: [phone] Serum or plasma complement C 4 measurement (mass/volume)Ordered By: Milady Zambrano on 09-30-2022 Complement C4 [Mass/Vol] 12 mg/dL 12-38 [facility] Serum or plasma creatinine m easurement (mass/volume)Ordered By: Milady Zambrano on 09-30-2022 Creatinine [Mass/Vol] 0.83 mg/dL 0.55-1.02 [facility] Comment on above: The validity of the calculated GFR & GFRAA in patients over 70 years has not been determined. Clinical correlation is essential. Serum or plasma urea nitroge n measurement (mass/volume)Ordered By: Milady Zambrano on 09-30-2022 Urea nitrogen [Mass/Vol] 13 mg/dL 7-18 [facility] Thin prep Papanicolaou smear with manual screeningOrdered By: Milady Zambrano on 09-30-2022 Thin prep Papanicolaou smear with manual screening 22 U/L 15-37 [facility] Thin prep Papanicolaou smear with manual screening 6 5-15 [facility] Thin prep Papanicolaou smear with manual screening 32.7 mg/L NO RANGE EST. [facility] Urine blood detectionOrdered By: Milady Zambrano on 09-30-2022 RBC Ql (U) Negative Negative [facility] Urine clarityOrdered By: Jessi Zambrano on 09-30-2022 Clarity (U) Clear Clear [facility] Urine color determinationOrd ered By: Milady Zambrano on 09-30-2022 Color (U) Yellow Yellow [facility] Urine creatinine measurement (mass/volume)Ordered By: Milady Zambrano on 09-30-2022 Creatinine (U) [Mass/Vol] 120.00 mg/dL NO RANGE EST. [facility] Urine glucose detectionOrder ed By: Milady Zambrano on 09-30-2022 Glucose Ql (U) Normal mg/dl Normal [facility] Urine leukocyte esterase det ection by dipstickOrdered By: Milady Zambrano on 09-30-2022 Leukocyte esterase Test strip Ql (U) Negative Negative [facility] Urine pHOrdered By: Milady hammond on 09-30-2022 pH (U) 7.0 [pH] 5.0 - 8.0 [facility] Urine protein measurement (m ass/volume)Ordered By: Milady Zambrano on 09-30-2022 Protein (U) [Mass/Vol] 27.5 mg/dL 0.0-11.[address] [facility] Urine protein/creatinine mas s ratioOrdered By: Milady Zambrano on 09-30-2022 Protein/Creatinine (U) [Mass ratio] 229 mg/g CRE 0-200 [facility] Urine specific gravity measu rementOrdered By: Milady Zambrano on 09-30-2022 Specific gravity (U) [Rel density] 1.010 1.002-1.030 [facility] Urobilinogen Auto test strip Ql (U)Ordered By: Milady Zambrano on 09-30-2022 Urobilinogen Ql (U) Normal mg/dl Normal [facility] Absolute lymphocyte countOrd ered By: Dr. Zambrano on 08-05-2022 Lymphocytes Auto (Unsp spec) [#/Vol] 0.61 10*3/uL 0.83-4.51 [facility] Basophil percentageOrdered B y: Dr. Zambrano on 08-05-2022 Basophils/100 WBC (Bld) 0.6 % 0-1 [facility] Bilirubin [Mass/Vol] 0.30 mg/dL 0.20-1.00 [facility] Comment on above: For patients on eltr ombopag therapy, use of Dimension [place] TBIL is not recommended. Chloride [Moles/Vol] 106 mmol/L 98-107 [facility] Eosinophils/100 WBC (Bld) 2.1 % 0-5 [facility] Glucose [Mass/Vol] 81 mg/dL 74-106 [facility] Neutrophils (Bld) [#/Vol] 2.2 10*3/uL 2.0-7.7 [facility] Neutrophils/100 WBC (Bld) 65.3 % 47-70 [facility] Potassium [Moles/Vol] 4.3 mmol/L 3.5-5.1 [facility] Protein [Mass/Vol] 7.2 g/dL 6.4-8.2 [facility] Sodium [Moles/Vol] 139 mmol/L 136-145 [facility] WBC (Bld) [#/Vol] 3.4 10*3/uL 4.4-11.0 [facility] Bilirubin Test strip Ql (U)O rdered By: Dr. Zambrano on 08-05-2022 Bilirubin Ql (U) Negative Negative [facility] Blood erythrocytes count (nu mber/volume)Ordered By: Dr. Zambrano on 08-05-2022 RBC (Bld) [#/Vol] 4.01 10*6/uL 4.2-5.4 [facility] Blood hemoglobin measurement (mass/volume)Ordered By: Dr. Zambrano on 08-05-2022 Hemoglobin (Bld) [Mass/Vol] 13.2 g/dL 12.0-15.0 [facility] Blood lymphocytes/100 leukoc ytesOrdered By: Dr. Zambrano on 08-05-2022 Lymphocytes/100 WBC (Bld) 18.1 % 19-41 [facility] Blood monocytes/100 leukocyt esOrdered By: Dr. Zambrano on 08-05-2022 Monocytes/100 WBC (Bld) 13.6 % 0-10 [facility] Blood platelet mean volumeOr dered By: Dr. Zambrano on 08-05-2022 Platelet mean volume (Bld) [Entitic vol] 11.0 fL 6.2-12.0 [facility] Determination of erythrocyte mean corpuscular volume (MCV)Ordered By: Dr. Zambrano on 08-05-2022 MCV (RBC) [Entitic vol] 103.0 fL 81-99 [facility] Hematocrit Auto (Bld) [Volum e fraction]Ordered By: Dr. Zambrano on 08-05-2022 Hematocrit (Bld) [Volume fraction] 41.3 % 37-47 [facility] Ketones Test strip Ql (U)Ord ered By: Dr. Zambrano on 08-05-2022 Ketones Ql (U) Negative Negative [facility] Laboratory - Chemistry and C hemistry - challengeOrdered By: Dr. Zambrano on 08-05-2022 ALP [Catalytic activity/Vol] 79 U/L 45-117 [facility] ALT [Catalytic activity/Vol] 21 U/L 13-56 [facility] CO2 [Moles/Vol] 29.0 mmol/L 21.0-32.0 [facility] Globulin (S) [Mass/Vol] 3.5 g/dL 2.2-4.2 [facility] Urea nitrogen/Creatinine [Mass ratio] 22.6 mg/mg 10-20 [facility] Laboratory - Hematology and Cell countsOrdered By: Dr. Zambrano on 08-05-2022 Erythrocyte distribution width (RBC) [Entitic vol] 46.0 fL 35.1-43.9 [facility] Erythrocyte distribution width (RBC) [Ratio] 12.2 % 11.6-14.6 [facility] Immature granulocytes/100 WBC (Bld) 0.300 % 0.0-0.9 [facility] Comment on above: IG% - Immature Granu locytes (promyelocytes, myelocytes and metamyelocytes) > 1% indicates that a LEFT SHIFT is Present. MCH (RBC) [Entitic mass] 32.9 pg 27.0-32.0 [facility] Nucleated RBC/100 [facility] (Bld) [[facility]] 0 [facility] [Mass/Vol]Or dered By: Dr. Zambrano on 08-05-2022 MCHC (RBC) [Mass/Vol] 32.0 g/dL 32-36 [facility] Nitrite Test strip Ql (U)Ord ered By: Dr. Zambrano on 08-05-2022 Nitrite Ql (U) Negative Negative [facility] No Panel InformationOrdered By: Dr. Zambrano on 08-05-2022 Estimated GFR (MDRD) Amer 104 mL/min >60 [facility] Comment on above: GFR Calc Estimated GFR (MDRD) Non-Af Amer 86 mL/min >60 [facility] Comment on above: Non- GFR Calc Platelets bldOrdered By: Dr. Zambrano on 08-05-2022 Platelets (Bld) [#/Vol] 207 10*3/uL 150-450 [facility] Protein Test strip Ql (U)Ord ered By: Dr. Zambrano on 08-05-2022 Protein Ql (U) 15 mg/dl Negative [facility] Serum DNA double strand anti body assay (units/volume)Ordered By: Dr. Zambrano on 08-05-2022 DNA double strand Ab Qn (S) 59 [IU]/mL 0-9 [facility] Comment on above: Negative <5 Equivoca l 5 - 9 Positive >9Performed at: [place] [id number] Director: Pacheco Gramajo PhD, Phone: [phone] Serum or plasma albumin evelyn urement (mass/volume)Ordered By: Dr. Zambrano on 08-05-2022 Albumin [Mass/Vol] 3.7 g/dL 3.2-5.0 [facility] Serum or plasma albumin/glob ulin mass ratioOrdered By: Dr. Zambrano on 08-05-2022 Albumin/Globulin [Mass ratio] 1.1 {ratio} 0.9-2.4 [facility] Serum or plasma calcium evelyn urement (mass/volume)Ordered By: Dr. Zambrano on 08-05-2022 Calcium [Mass/Vol] 9.4 mg/dL 8.5-10.1 [facility] Serum or plasma complement C 3 measurement (mass/volume)Ordered By: Dr. Zambrano on 08-05-2022 Complement C3 [Mass/Vol] 80 mg/dL 82-167 [facility] Comment on above: Performed at: [address] [id number] Director: Pacheco Gramajo PhD, Phone: [phone] Serum or plasma complement C 4 measurement (mass/volume)Ordered By: Dr. Zambrano on 08-05-2022 Complement C4 [Mass/Vol] 11 mg/dL 12-38 [facility] Serum or plasma creatinine m easurement (mass/volume)Ordered By: Dr. Zambrano on 08-05-2022 Creatinine [Mass/Vol] 0.75 mg/dL 0.55-1.02 [facility] Comment on above: The validity of the calculated GFR & GFRAA in patients over 70 years has not been determined. Clinical correlation is essential. Serum or plasma urea nitroge n measurement (mass/volume)Ordered By: Dr. Zambrano on 08-05-2022 Urea nitrogen [Mass/Vol] 17 mg/dL 7-18 [facility] Thin prep Papanicolaou smear with manual screeningOrdered By: Dr. Zambrano on 08-05-2022 Thin prep Papanicolaou smear with manual screening 19 U/L 15-37 [facility] Thin prep Papanicolaou smear with manual screening 4 5-15 [facility] Urine blood detectionOrdered By: Dr. Zambrano on 08-05-2022 RBC Ql (U) Negative Negative [facility] Urine clarityOrdered By: Dr. Zambrano on 08-05-2022 Clarity (U) Sl. Cloudy Clear [facility] Urine color determinationOrd ered By: Dr. Zambrano on 08-05-2022 Color (U) Yellow Yellow [facility] Urine creatinine measurement (mass/volume)Ordered By: Dr. Zambrano on 08-05-2022 Creatinine (U) [Mass/Vol] 131.00 mg/dL NO RANGE EST. [facility] Urine glucose detectionOrder ed By: Dr. Zambrano on 08-05-2022 Glucose Ql (U) Normal mg/dl Normal [facility] Urine leukocyte esterase det ection by dipstickOrdered By: Dr. Zambrano on 08-05-2022 Leukocyte esterase Test strip Ql (U) Negative Negative [facility] Urine pHOrdered By: Dr. Seven oliver on 08-05-2022 pH (U) 7.0 [pH] 5.0 - 8.0 [facility] Urine protein measurement (m ass/volume)Ordered By: Dr. Zambrano on 08-05-2022 Protein (U) [Mass/Vol] 32.5 mg/dL 0.0-11.[address] [facility] Urine protein/creatinine mas s ratioOrdered By: Dr. Zambrano on 08-05-2022 Protein/Creatinine (U) [Mass ratio] 248 mg/g CRE 0-200 [facility] Urine specific gravity measu rementOrdered By: Dr. Zambrano on 08-05-2022 Specific gravity (U) [Rel density] 1.010 1.002-1.030 [facility] Urobilinogen Auto test strip Ql (U)Ordered By: Dr. Zambrano on 08-05-2022 Urobilinogen Ql (U) Normal mg/dl Normal [facility] Absolute lymphocyte countOrd ered By: Dr. Zambrano on 06-03-2022 Lymphocytes Auto (Unsp spec) [#/Vol] 0.71 10*3/uL 0.83-4.51 [facility] Basophil percentageOrdered B y: Dr. Zambrano on 06-03-2022 Basophils/100 WBC (Bld) 0.3 % 0-1 [facility] Bilirubin [Mass/Vol] 0.50 mg/dL 0.20-1.00 [facility] Comment on above: For patients on eltr ombopag therapy, use of Dimension [place] TBIL is not recommended. Chloride [Moles/Vol] 102 mmol/L 98-107 [facility] Eosinophils/100 WBC (Bld) 0.3 % 0-5 [facility] Glucose [Mass/Vol] 97 mg/dL 74-106 [facility] Neutrophils (Bld) [#/Vol] 1.9 10*3/uL 2.0-7.7 [facility] Neutrophils/100 WBC (Bld) 62.3 % 47-70 [facility] Potassium [Moles/Vol] 4.1 mmol/L 3.5-5.1 [facility] Protein [Mass/Vol] 7.4 g/dL 6.4-8.2 [facility] Sodium [Moles/Vol] 137 mmol/L 136-145 [facility] WBC (Bld) [#/Vol] 3.0 10*3/uL 4.4-11.0 [facility] Bilirubin Test strip Ql (U)O rdered By: Dr. Zambrano on 06-03-2022 Bilirubin Ql (U) Negative Negative [facility] Blood erythrocytes count (nu mber/volume)Ordered By: Dr. Zambrano on 06-03-2022 RBC (Bld) [#/Vol] 3.86 10*6/uL 4.2-5.4 [facility] Blood hemoglobin measurement (mass/volume)Ordered By: Dr. Zambrano on 06-03-2022 Hemoglobin (Bld) [Mass/Vol] 12.4 g/dL 12.0-15.0 [facility] Blood lymphocytes/100 leukoc ytesOrdered By: Dr. Zambrano on 06-03-2022 Lymphocytes/100 WBC (Bld) 23.7 % 19-41 [facility] Blood monocytes/100 leukocyt esOrdered By: Dr. Zambrano on 06-03-2022 Monocytes/100 WBC (Bld) 13.4 % 0-10 [facility] Blood platelet mean volumeOr dered By: Dr. Zambrano on 06-03-2022 Platelet mean volume (Bld) [Entitic vol] 10.8 fL 6.2-12.0 [facility] Determination of erythrocyte mean corpuscular volume (MCV)Ordered By: Dr. Zambrano on 06-03-2022 MCV (RBC) [Entitic vol] 101.3 fL 81-99 [facility] Hematocrit Auto (Bld) [Volum e fraction]Ordered By: Dr. Zambrano on 06-03-2022 Hematocrit (Bld) [Volume fraction] 39.1 % 37-47 [facility] Ketones Test strip Ql (U)Ord ered By: Dr. Zambrano on 06-03-2022 Ketones Ql (U) Negative Negative [facility] Laboratory - Chemistry and C hemistry - challengeOrdered By: Dr. Zambrano on 06-03-2022 ALP [Catalytic activity/Vol] 79 U/L 45-117 [facility] ALT [Catalytic activity/Vol] 23 U/L 13-56 [facility] CO2 [Moles/Vol] 30.0 mmol/L 21.0-32.0 [facility] Globulin (S) [Mass/Vol] 3.5 g/dL 2.2-4.2 [facility] Urea nitrogen/Creatinine [Mass ratio] 20.9 mg/mg 10-20 [facility] Laboratory - Hematology and Cell countsOrdered By: Dr. Zambrano on 06-03-2022 Erythrocyte distribution width (RBC) [Entitic vol] 45.2 fL 35.1-43.9 [facility] Erythrocyte distribution width (RBC) [Ratio] 12.2 % 11.6-14.6 [facility] Immature granulocytes/100 WBC (Bld) 0.000 % 0.0-0.9 [facility] Comment on above: IG% - Immature Granu locytes (promyelocytes, myelocytes and metamyelocytes) > 1% indicates that a LEFT SHIFT is Present. MCH (RBC) [Entitic mass] 32.1 pg 27.0-32.0 [facility] Nucleated RBC/100 WBC (Bld) [Ratio] 0 % 0-5 [facility] MCHC Auto (RBC) [Mass/Vol]Or dered By: Dr. Zambrano on 06-03-2022 MCHC (RBC) [Mass/Vol] 31.7 g/dL 32-36 [facility] Nitrite Test strip Ql (U)Ord ered By: Dr. Zambrano on 06-03-2022 Nitrite Ql (U) Negative Negative [facility] No Panel InformationOrdered By: Dr. Zambrano on 06-03-2022 Estimated GFR (MDRD) Amer 109 mL/min >60 [facility] Comment on above: GFR Calc Estimated GFR (MDRD) Non-Af Amer 90 mL/min >60 [facility] Comment on above: Non- GFR Calc Platelets bldOrdered By: Dr. Zambrano on 06-03-2022 Platelets (Bld) [#/Vol] 186 10*3/uL 150-450 [facility] Protein Test strip Ql (U)Ord ered By: Dr. Zambrano on 06-03-2022 Protein Ql (U) Negative Negative [facility] Serum DNA double strand anti body assay (units/volume)Ordered By: Dr. Zambrano on 06-03-2022 DNA double strand Ab Qn (S) 53 [IU]/mL 0-9 [facility] Comment on above: Negative <5 Equivoca l 5 - 9 Positive >9Performed at: [facility] - [facility] [address] [id number] Director: Pacheco Gramajo PhD, Phone: [phone] Serum or plasma albumin evelyn urement (mass/volume)Ordered By: Dr. Zambrano on 06-03-2022 Albumin [Mass/Vol] 3.9 g/dL 3.2-5.0 [facility] Serum or plasma albumin/glob ulin mass ratioOrdered By: Dr. Zambrano on 06-03-2022 Albumin/Globulin [Mass ratio] 1.1 {ratio} 0.9-2.4 [facility] Serum or plasma calcium evelyn urement (mass/volume)Ordered By: Dr. Zambrano on 06-03-2022 Calcium [Mass/Vol] 9.5 mg/dL 8.5-10.1 [facility] Serum or plasma complement C 3 measurement (mass/volume)Ordered By: Dr. Zambrano on 06-03-2022 Complement C3 [Mass/Vol] 80 mg/dL 82-167 [facility] Comment on above: Performed at: [facility] - [facility] [address] [id number] Director: Pacheco Gramajo PhD, Phone: [phone] Serum or plasma complement C 4 measurement (mass/volume)Ordered By: Dr. Zambrano on 06-03-2022 Complement C4 [Mass/Vol] 10 mg/dL 12-38 [facility] Serum or plasma creatinine m easurement (mass/volume)Ordered By: Dr. Zambrano on 06-03-2022 Creatinine [Mass/Vol] 0.72 mg/dL 0.55-1.02 [facility] Comment on above: The validity of the calculated GFR & GFRAA in patients over 70 years has not been determined. Clinical correlation is essential. Serum or plasma urea nitroge n measurement (mass/volume)Ordered By: Dr. Zambrano on 06-03-2022 Urea nitrogen [Mass/Vol] 15 mg/dL 7-18 [facility] Thin prep Papanicolaou smear with manual screeningOrdered By: Dr. Zambrano on 06-03-2022 Thin prep Papanicolaou smear with manual screening 22 U/L 15-37 [facility] Thin prep Papanicolaou smear with manual screening 5 5-15 [facility] Urine blood detectionOrdered By: Dr. Zambrano on 06-03-2022 RBC Ql (U) Negative Negative [facility] Urine clarityOrdered By: Dr. Zambrano on 06-03-2022 Clarity (U) Clear Clear [facility] Urine color determinationOrd ered By: Dr. Zambrano on 06-03-2022 Color (U) Yellow Yellow [facility] Urine creatinine measurement (mass/volume)Ordered By: Dr. Zambrano on 06-03-2022 Creatinine (U) [Mass/Vol] 30.20 mg/dL NO RANGE EST. [facility] Urine glucose detectionOrder ed By: Dr. Zambrano on 06-03-2022 Glucose Ql (U) Normal mg/dl Normal [facility] Urine leukocyte esterase det ection by dipstickOrdered By: Dr. Zambrano on 06-03-2022 Leukocyte esterase Test strip Ql (U) Negative Negative [facility] Urine pHOrdered By: Dr. Seven oliver on 06-03-2022 pH (U) 6.5 [pH] 5.0 - 8.0 [facility] Urine protein measurement (m ass/volume)Ordered By: Dr. Zambrano on 06-03-2022 Protein (U) [Mass/Vol] 7.9 mg/dL 0.0-11.[address] [facility] Urine protein/creatinine mas s ratioOrdered By: Dr. Zambrano on 06-03-2022 Protein/Creatinine (U) [Mass ratio] 262 mg/g CRE 0-200 [facility] Urine specific gravity measu rementOrdered By: Dr. Zambrano on 06-03-2022 Specific gravity (U) [Rel density] 1.010 1.002-1.030 [facility] Urobilinogen Auto test strip Ql (U)Ordered By: Dr. Zambrano on 06-03-2022 Urobilinogen Ql (U) Normal mg/dl Normal [facility] Absolute lymphocyte countOrd ered By: Dr. Zambrano on 03-04-2022 Lymphocytes Auto (Unsp spec) [#/Vol] 0.86 10*3/uL 0.83-4.51 [facility] Basophil percentageOrdered B y: Dr. Zambrano on 03-04-2022 Basophils/100 WBC (Bld) 0.8 % 0-1 [facility] Bilirubin [Mass/Vol] 0.30 mg/dL 0.20-1.00 [facility] Comment on above: For patients on eltr ombopag therapy, use of Dimension [place] TBIL is not recommended. Chloride [Moles/Vol] 103 mmol/L 98-107 [facility] Eosinophils/100 WBC (Bld) 2.4 % 0-5 [facility] Glucose [Mass/Vol] 59 mg/dL 74-106 [facility] Neutrophils (Bld) [#/Vol] 2.3 10*3/uL 2.0-7.7 [facility] Neutrophils/100 WBC (Bld) 61.5 % 47-70 [facility] Potassium [Moles/Vol] 4.2 mmol/L 3.5-5.1 [facility] Protein [Mass/Vol] 6.7 g/dL 6.4-8.2 [facility] Sodium [Moles/Vol] 140 mmol/L 136-145 [facility] WBC (Bld) [#/Vol] 3.8 10*3/uL 4.4-11.0 [facility] Bilirubin Test strip Ql (U)O rdered By: Dr. Zambrano on 03-04-2022 Bilirubin Ql (U) Negative Negative [facility] Blood erythrocytes count (nu mber/volume)Ordered By: Dr. Zambrano on 03-04-2022 RBC (Bld) [#/Vol] 4.09 10*6/uL 4.2-5.4 [facility] Blood hemoglobin measurement (mass/volume)Ordered By: Dr. Zambrano on 03-04-2022 Hemoglobin (Bld) [Mass/Vol] 12.9 g/dL 12.0-15.0 [facility] Blood lymphocytes/100 leukoc ytesOrdered By: Dr. Zambrano on 03-04-2022 Lymphocytes/100 WBC (Bld) 22.6 % 19-41 [facility] Blood monocytes/100 leukocyt esOrdered By: Dr. Zambrano on 03-04-2022 Monocytes/100 WBC (Bld) 12.4 % 0-10 [facility] Blood platelet mean volumeOr dered By: Dr. Zambrano on 03-04-2022 Platelet mean volume (Bld) [Entitic vol] 11.5 fL 6.2-12.0 [facility] Determination of erythrocyte mean corpuscular volume (MCV)Ordered By: Dr. Zambrano on 03-04-2022 MCV (RBC) [Entitic vol] 101.5 fL 81-99 [facility] Hematocrit Auto (Bld) [Volum e fraction]Ordered By: Dr. Zambrano on 03-04-2022 Hematocrit (Bld) [Volume fraction] 41.5 % 37-47 [facility] Ketones Test strip Ql (U)Ord ered By: Dr. Zambrano on 03-04-2022 Ketones Ql (U) Negative Negative [facility] Laboratory - Chemistry and C hemistry - challengeOrdered By: Dr. Zambrano on 03-04-2022 ALP [Catalytic activity/Vol] 70 U/L 45-117 [facility] ALT [Catalytic activity/Vol] 20 U/L 13-56 [facility] CO2 [Moles/Vol] 28.0 mmol/L 21.0-32.0 [facility] Globulin (S) [Mass/Vol] 3.2 g/dL 2.2-4.2 [facility] Urea nitrogen/Creatinine [Mass ratio] 18.5 mg/mg 10-20 [facility] Laboratory - Hematology and Cell countsOrdered By: Dr. Zambrano on 03-04-2022 Erythrocyte distribution width (RBC) [Entitic vol] 48.6 fL 35.1-43.9 [facility] Erythrocyte distribution width (RBC) [Ratio] 13.1 % 11.6-14.6 [facility] Immature granulocytes/100 WBC (Bld) 0.300 % 0.0-0.9 [facility] Comment on above: IG% - Immature Granu locytes (promyelocytes, myelocytes and metamyelocytes) > 1% indicates that a LEFT SHIFT is Present. MCH (RBC) [Entitic mass] 31.5 pg 27.0-32.0 [facility] Nucleated RBC/100 WBC (Bld) [Ratio] 0 % 0-5 [facility] MCHC Auto (RBC) [Mass/Vol]Or dered By: Dr. Zambrano on 03-04-2022 MCHC (RBC) [Mass/Vol] 31.1 g/dL 32-36 [facility] Nitrite Test strip Ql (U)Ord ered By: Dr. Zambrano on 03-04-2022 Nitrite Ql (U) Negative Negative [facility] No Panel InformationOrdered By: Dr. Zambrano on 03-04-2022 Estimated GFR (MDRD) Amer 123 mL/min >60 [facility] Comment on above: GFR Calc Estimated GFR (MDRD) Non-Af Amer 102 mL/min >60 [facility] Comment on above: Non- GFR Calc Platelets bldOrdered By: Dr. Zambrano on 03-04-2022 Platelets (Bld) [#/Vol] 196 10*3/uL 150-450 [facility] Protein Test strip Ql (U)Ord ered By: Dr. Zambrano on 03-04-2022 Protein Ql (U) 15 mg/dl Negative [facility] Serum DNA double strand anti body assay (units/volume)Ordered By: Dr. Zambrano on 03-04-2022 DNA double strand Ab Qn (S) 62 [IU]/mL 0-9 [facility] Comment on above: Negative <5 Equivoca l 5 - 9 Positive >9Performed at: - [facility] [id number] Director: Pacheco Gramajo PhD, Phone: [phone] Serum or plasma albumin evelyn urement (mass/volume)Ordered By: Dr. Zambrano on 03-04-2022 Albumin [Mass/Vol] 3.5 g/dL 3.2-5.0 [facility] Serum or plasma albumin/glob ulin mass ratioOrdered By: Dr. Zambrano on 03-04-2022 Albumin/Globulin [Mass ratio] 1.1 {ratio} 0.9-2.4 [facility] Serum or plasma calcium evelyn urement (mass/volume)Ordered By: Dr. Zambrano on 03-04-2022 Calcium [Mass/Vol] 8.9 mg/dL 8.5-10.1 [facility] Serum or plasma complement C 3 measurement (mass/volume)Ordered By: Dr. Zambrano on 03-04-2022 Complement C3 [Mass/Vol] 74 mg/dL 82-167 [facility] Comment on above: Performed at: [place] [id number] Director: Pacheco Gramajo PhD, Phone: [phone] Serum or plasma complement C 4 measurement (mass/volume)Ordered By: Dr. Zambrano on 03-04-2022 Complement C4 [Mass/Vol] 10 mg/dL 12-38 [facility] Serum or plasma creatinine m easurement (mass/volume)Ordered By: Dr. Zambrano on 03-04-2022 Creatinine [Mass/Vol] 0.65 mg/dL 0.55-1.02 [facility] Comment on above: The validity of the calculated GFR & GFRAA in patients over 70 years has not been determined. Clinical correlation is essential. Serum or plasma urea nitroge n measurement (mass/volume)Ordered By: Dr. Zambrano on 03-04-2022 Urea nitrogen [Mass/Vol] 12 mg/dL 7-18 [facility] Thin prep Papanicolaou smear with manual screeningOrdered By: Dr. Zambrano on 03-04-2022 Thin prep Papanicolaou smear with manual screening 15 U/L 15-37 [facility] Thin prep Papanicolaou smear with manual screening 9 5-15 [facility] Urine blood detectionOrdered By: Dr. Zambrano on 03-04-2022 RBC Ql (U) Negative Negative [facility] Urine clarityOrdered By: Dr. Zambrano on 03-04-2022 Clarity (U) Sl. Cloudy Clear [facility] Urine color determinationOrd ered By: Dr. Zambrano on 03-04-2022 Color (U) Yellow Yellow [facility] Urine creatinine measurement (mass/volume)Ordered By: Dr. Zambrano on 03-04-2022 Creatinine (U) [Mass/Vol] 137.00 mg/dL NO RANGE EST. [facility] Urine glucose detectionOrder ed By: Dr. Zambrano on 03-04-2022 Glucose Ql (U) Normal mg/dl Normal [facility] Urine leukocyte esterase det ection by dipstickOrdered By: Dr. Zambrano on 03-04-2022 Leukocyte esterase Test strip Ql (U) Negative Negative [facility] Urine pHOrdered By: Dr. Seven oliver on 03-04-2022 pH (U) 6.5 [pH] 5.0 - 8.0 [facility] Urine protein measurement (m ass/volume)Ordered By: Dr. Zambrano on 03-04-2022 Protein (U) [Mass/Vol] 29.9 mg/dL 0.0-11.[address] [facility] Urine protein/creatinine mas s ratioOrdered By: Dr. Zambrano on 03-04-2022 Protein/Creatinine (U) [Mass ratio] 218 mg/g CRE 0-200 [facility] Urine specific gravity measu rementOrdered By: Dr. Zambrano on 03-04-2022 Specific gravity (U) [Rel density] 1.015 1.002-1.030 [facility] Urobilinogen Auto test strip Ql (U)Ordered By: Dr. Zambrano on 03-04-2022 Urobilinogen Ql (U) Normal mg/dl Normal [facility] Absolute lymphocyte counton 01-15-2022 Lymphocytes Auto (Unsp spec) [#/Vol] 0.64 10*3/uL 0.83-4.51 [facility] Work Phone: Basophil percentageon 2021 Basophils/100 WBC (Bld) 0.7 % 0-1 [facility] Work Phone: Bilirubin [Mass/Vol] 0.60 mg/dL 0.20-1.00 [facility] Work Phone: Comment on above: For patients on eltr ombopag therapy, use of Dimension [place] TBIL is not recommended. Chloride [Moles/Vol] 101 mmol/L 98-107 [facility] Work Phone: Eosinophils/100 WBC (Bld) 2.1 % 0-5 [facility] Work Phone: Glucose [Mass/Vol] 74 mg/dL 74-106 [facility] Work Phone: Neutrophils (Bld) [#/Vol] 1.6 10*3/uL 2.0-7.7 [facility] Work Phone: Neutrophils/100 WBC (Bld) 56.1 % 47-70 [facility] Work Phone: Potassium [Moles/Vol] 4.4 mmol/L 3.5-5.1 [facility] Work Phone: Protein [Mass/Vol] 6.8 g/dL 6.4-8.2 [facility] Work Phone: Sodium [Moles/Vol] 136 mmol/L 136-145 [facility] Work Phone: WBC (Bld) [#/Vol] 2.9 10*3/uL 4.4-11.0 [facility] Work Phone: Bilirubin Test strip Ql (U)o n 01-15-2022 Bilirubin Ql (U) Negative Negative [facility] Work Phone: Blood erythrocytes count (nu mber/volume)on 01-15-2022 RBC (Bld) [#/Vol] 3.78 10*6/uL 4.2-5.4 [facility] Work Phone: Blood hemoglobin measurement (mass/volume)on 01-15-2022 Hemoglobin (Bld) [Mass/Vol] 12.0 g/dL 12.0-15.0 [facility] Work Phone: Blood lymphocytes/100 leukoc yteson 01-15-2022 Lymphocytes/100 WBC (Bld) 22.3 % 19-41 [facility] Work Phone: Blood monocytes/100 leukocyt eson 01-15-2022 Monocytes/100 WBC (Bld) 18.5 % 0-10 [facility] Work Phone: Blood platelet mean volumeon 01-15-2022 Platelet mean volume (Bld) [Entitic vol] 10.7 fL 6.2-12.0 [facility] Work Phone: Determination of erythrocyte mean corpuscular volume (MCV)on 01-15-2022 MCV (RBC) [Entitic vol] 100.5 fL 81-99 [facility] Work Phone: Hematocrit Auto (Bld) [Volum e fraction]on 01-15-2022 Hematocrit (Bld) [Volume fraction] 38.0 % 37-47 [facility] Work Phone: Ketones Test strip Ql (U)on 01-15-2022 Ketones Ql (U) Negative Negative [facility] Work Phone: Laboratory - Chemistry and C hemistry - challengeon 01-15-2022 ALP [Catalytic activity/Vol] 59 U/L 45-117 [facility] Work Phone: ALT [Catalytic activity/Vol] 18 U/L 13-56 [facility] Work Phone: CO2 [Moles/Vol] 30.0 mmol/L 21.0-32.0 [facility] Work Phone: Globulin (S) [Mass/Vol] 3.4 g/dL 2.2-4.2 [facility] Work Phone: Urea nitrogen/Creatinine [Mass ratio] 18.5 mg/mg 10-20 [facility] Work Phone: Laboratory - Hematology and Cell countson 01-15-2022 Erythrocyte distribution width (RBC) [Entitic vol] 46.1 fL 35.1-43.9 [facility] Work Phone: [phone] Erythrocyte distribution width (RBC) [Ratio] 12.5 % 11.6-14.6 [facility] Work Phone: [phone] Immature granulocytes/100 WBC (Bld) 0.300 % 0.0-0.9 [facility] Work Phone: [phone] Comment on above: IG% - Immature Granu locytes (promyelocytes, myelocytes and metamyelocytes) > 1% indicates that a LEFT SHIFT is Present. MCH (RBC) [Entitic mass] 31.7 pg 27.0-32.0 [facility] Work Phone: [phone] Nucleated RBC/100 WBC (Bld) [Ratio] 0 % 0-5 [facility] Work Phone: [phone] MCHC Auto (RBC) [Mass/Vol]on 01-15-2022 MCHC (RBC) [Mass/Vol] 31.6 g/dL 32-36 [facility] Work Phone: [phone] Nitrite Test strip Ql (U)on 01-15-2022 Nitrite Ql (U) Negative Negative [facility] Work Phone: [phone] Panel Informationon 01-15 Estimated GFR (MDRD) Amer 123 mL/min >60 [facility] Work Phone: [phone] Comment on above: GFR Calc Estimated GFR (MDRD) Non-Af Amer 101 mL/min >60 [facility] Work Phone: [phone] Comment on above: Non- GFR Calc Platelets bldon 01-15-2022 Platelets (Bld) [#/Vol] 251 10*3/uL 150-450 [facility] Work Phone: [phone] Protein Test strip Ql (U)on 01-15-2022 Protein Ql (U) 15 mg/dl Negative [facility] Work Phone: [phone] Serum DNA double strand anti body assay (units/volume)on 01-15-2022 DNA double strand Ab Qn (S) 73 [IU]/mL 0-9 [facility] Work Phone: [phone] Comment on above: Negative <5 Equivoca l 5 - 9 Positive >9Performed at: [facility] [address] [id number] Director: Pacheco Gramajo PhD, Phone: [phone] Serum or plasma albumin evelyn urement (mass/volume)on 01-15-2022 Albumin [Mass/Vol] 3.4 g/dL 3.2-5.0 [facility] Work Phone: Serum or plasma albumin/glob ulin mass ratioon 01-15-2022 Albumin/Globulin [Mass ratio] 1.0 {ratio} 0.9-2.4 [facility] Work Phone: Serum or plasma calcium evelyn urement (mass/volume)on 01-15-2022 Calcium [Mass/Vol] 9.2 mg/dL 8.5-10.1 [facility] Work Phone: Serum or plasma complement C 3 measurement (mass/volume)on 01-15-2022 Complement C3 [Mass/Vol] 79 mg/dL 82-167 [facility] Work Phone: Comment on above: Performed at: [facility] [address] [id number] Director: Pacheco Gramajo PhD, Phone: [phone] Serum or plasma complement C 4 measurement (mass/volume)on 01-15-2022 Complement C4 [Mass/Vol] 13 mg/dL 12-38 [facility] Work Phone: Serum or plasma creatinine m easurement (mass/volume)on 01-15-2022 Creatinine [Mass/Vol] 0.65 mg/dL 0.55-1.02 [facility] Work Phone: Comment on above: The validity of the calculated GFR & GFRAA in patients over 70 years has not been determined. Clinical correlation is essential. Serum or plasma urea nitroge n measurement (mass/volume)on 01-15-2022 Urea nitrogen [Mass/Vol] 12 mg/dL 7-18 [facility] Work Phone: Thin prep Papanicolaou smear with manual screeningon 01-15-2022 Thin prep Papanicolaou smear with manual screening 19 U/L 15-37 [facility] Work Phone: Thin prep Papanicolaou smear with manual screening 5 5-15 [facility] Work Phone: Urine blood detectionon 01-04 RBC Ql (U) Negative Negative [facility] Work Phone: Urine clarityon 01-15-2022 Clarity (U) Sl. Cloudy Clear [facility] Work Phone: [phone] Urine color determinationon 01-15-2022 Color (U) Yellow Yellow [facility] Work Phone: Urine creatinine measurement (mass/volume)on 01-15-2022 Creatinine (U) [Mass/Vol] 105.00 mg/dL NO RANGE EST. [facility] Work Phone: Urine glucose detectionon Glucose Ql (U) Normal mg/dl Normal [facility] Work Phone: Urine leukocyte esterase det ection by dipstickon 01-15-2022 Leukocyte esterase Test strip Ql (U) Negative Negative [facility] Work Phone: Urine pHon 01-15-2022 pH (U) 7.0 [pH] 5.0 - 8.0 [facility] Work Phone: Urine protein measurement (m ass/volume)on 01-15-2022 Protein (U) [Mass/Vol] 31.7 mg/dL 0.0-11.[address] [facility] Work Phone: [phone] Urine protein/creatinine mas s ratioon 01-15-2022 Protein/Creatinine (U) [Mass ratio] 302 mg/g CRE 0-200 [facility] Work Phone: Urine specific gravity measu rementon 01-15-2022 Specific gravity (U) [Rel density] 1.010 1.002-1.030 [facility] Work Phone: Urobilinogen Auto test strip Ql (U)on 01-15-2022 Urobilinogen Ql (U) Normal mg/dl Normal [facility] Work Phone: Office Visit (Primary Care [...] amoxicillin lidocaine Zithromax Vitals Vital Signs Recorded: [id number] 11:13AM Temperature: 101.1 F Heart Rate: 105 [...] No murmur, No gallop. Integumentary: Warm, Dry, Mcintosh, Intact, No rash. Psychiatric: Cooperative, Appropriate mood AND affect, Normal judgment. Signatures Electronically signed by : Roosevelt Carter MD; Jan 03 2022 1:37PM EST (Author) Normal [facility] Tobacco Screening.on 022 Fall risk assessment a) No falls within the last year [facility] Work Phone: Tobacco use status CPHS b) No M [facility] Work Phone: Basophil percentageon 2021 Chloride [Moles/Vol] 100 mmol/L 98-107 [facility] Work Phone: Glucose [Mass/Vol] 94 mg/dL 74-106 [facility] Work Phone: Potassium [Moles/Vol] 4.3 mmol/L 3.5-5.1 [facility] Work Phone: Sodium [Moles/Vol] 136 mmol/L 136-145 [facility] Work Phone: WBC (Bld) [#/Vol] 4.0 10*3/uL 4.4-11.0 [facility] Work Phone: Blood erythrocytes count (nu mber/volume)on 12-31-2021 RBC (Bld) [#/Vol] 3.76 10*6/uL 4.2-5.4 [facility] Work Phone: [phone] Blood hemoglobin measurement (mass/volume)on 12-31-2021 Hemoglobin (Bld) [Mass/Vol] 11.9 g/dL 12.0-15.0 [facility] Work Phone: [phone] Blood platelet mean volumeon 12-31-2021 Platelet mean volume (Bld) [Entitic vol] 10.8 fL 6.2-12.0 [facility] Work Phone: [phone] Determination of erythrocyte mean corpuscular volume (MCV)on 12-31-2021 MCV (RBC) [Entitic vol] 100.3 fL 81-99 [facility] Work Phone: [phone] Hematocrit Auto (Bld) [Volum e fraction]on 12-31-2021 Hematocrit (Bld) [Volume fraction] 37.7 % 37-47 [facility] Work Phone: [phone] Laboratory - Chemistry and C hemistry - challengeon 12-31-2021 CO2 [Moles/Vol] 29.0 mmol/L 21.0-32.0 [facility] Work Phone: [phone] Urea nitrogen/Creatinine [Mass ratio] 16.9 mg/mg 10-20 [facility] Work Phone: [phone] Laboratory - Hematology and Cell countson 12-31-2021 Erythrocyte distribution width (RBC) [Entitic vol] 46.2 fL 35.1-43.9 [facility] Work Phone: [phone] Erythrocyte distribution width (RBC) [Ratio] 12.5 % 11.6-14.6 [facility] Work Phone: [phone] MCH (RBC) [Entitic mass] 31.6 pg 27.0-32.0 [facility] Work Phone: [phone] MCHC Auto (RBC) [Mass/Vol]on 12-31-2021 MCHC (RBC) [Mass/Vol] 31.6 g/dL 32-36 [facility] Work Phone: [phone] Panel Informationon 12-31 Estimated GFR (MDRD) Amer 111 mL/min >60 [facility] Work Phone: [phone] Comment on above: GFR Calc Estimated GFR (MDRD) Non-Af Amer 91 mL/min >60 [facility] Work Phone: [phone] Comment on above: Non- GFR Calc Urine Microalbumin/Creatinine Ratio 143.0 mg/g CRE <30 [facility] Work Phone: Platelets bldon 12-31-2021 Platelets (Bld) [#/Vol] 191 10*3/uL 150-450 [facility] Work Phone: Serum DNA double strand anti body assay (units/volume)on 12-31-2021 DNA double strand Ab Qn (S) 64 [IU]/mL 0-9 [facility] Work Phone: Comment on above: Negative <5 Equivoca l 5 - 9 Positive >9Performed at: [facility] [id number] [place], [place] [id number] Director: Pacheco Gramajo PhD, Phone: [phone] Serum or plasma calcium evelyn urement (mass/volume)on 12-31-2021 Calcium [Mass/Vol] 9.3 mg/dL 8.5-10.1 [facility] Work Phone: Serum or plasma complement C 3 measurement (mass/volume)on 12-31-2021 Complement C3 [Mass/Vol] 79 mg/dL 82-167 [facility] Work Phone: Comment on above: Performed at: [facility] [id number] [place], [place] [id number] Director: Pacheco Gramajo PhD, Phone: [phone] Serum or plasma creatinine m easurement (mass/volume)on 12-31-2021 Creatinine [Mass/Vol] 0.71 mg/dL 0.55-1.02 [facility] Work Phone: Comment on above: The validity of the calculated GFR & GFRAA in patients over 70 years has not been determined. Clinical correlation is essential. Serum or plasma urea nitroge n measurement (mass/volume)on 12-31-2021 Urea nitrogen [Mass/Vol] 12 mg/dL 7-18 [facility] Work Phone: Thin prep Papanicolaou smear with manual screeningon 12-31-2021 Thin prep Papanicolaou smear with manual screening 7 5-15 [facility] Work Phone: Thin prep Papanicolaou smear with manual screening 26.6 mg/L NO RANGE EST. [facility] Work Phone: Urine creatinine measurement (mass/volume)on 12-31-2021 Creatinine (U) [Mass/Vol] 18.60 mg/dL NO RANGE EST. [facility] Work Phone: Absolute lymphocyte counton 12-05-2021 Lymphocytes Auto (Unsp spec) [#/Vol] 0.44 10*3/uL 0.83-4.51 [facility] Work Phone: Basophil percentageon 2021 Basophils/100 WBC (Bld) 0.9 % 0-1 [facility] Work Phone: Bilirubin [Mass/Vol] 0.40 mg/dL 0.20-1.00 [facility] Work Phone: Comment on above: For patients on eltr ombopag therapy, use of Dimension [place] TBIL is not recommended. Chloride [Moles/Vol] 101 mmol/L 98-107 [facility] Work Phone: Eosinophils/100 WBC (Bld) 3.4 % 0-5 [facility] Work Phone: Glucose [Mass/Vol] 70 mg/dL 74-106 [facility] Work Phone: Neutrophils (Bld) [#/Vol] 1.4 10*3/uL 2.0-7.7 [facility] Work Phone: Neutrophils/100 WBC (Bld) 60.5 % 47-70 [facility] Work Phone: Potassium [Moles/Vol] 4.1 mmol/L 3.5-5.1 [facility] Work Phone: [phone] Protein [Mass/Vol] 7.2 g/dL 6.4-8.2 [facility] Work [phone] Sodium [Moles/Vol] 135 mmol/L 136-145 [facility] Work Phone: WBC (Bld) [#/Vol] 2.3 10*3/uL 4.4-11.0 [facility] Work Phone: Bilirubin Test strip Ql (U)o n 12-05-2021 Bilirubin Ql (U) Negative Negative [facility] Work Phone: [phone] Blood erythrocytes count (nu mber/volume)on 12-05-2021 RBC (Bld) [#/Vol] 4.00 10*6/uL 4.2-5.4 [facility] Work Phone: Blood hemoglobin measurement (mass/volume)on 12-05-2021 Hemoglobin (Bld) [Mass/Vol] 12.6 g/dL 12.0-15.0 [facility] Work Phone: Blood lymphocytes/100 leukoc yteson 12-05-2021 Lymphocytes/100 WBC (Bld) 18.9 % 19-41 [facility] Work Phone: Blood manual differential co mment interpretation (narrative result)on 12-05-2021 Manual differential comment Samir (Bld) [Interp] COMMENT [facility] Work Phone: Comment on above: LYMPHOPENIA. Blood monocytes/100 leukocyt eson 12-05-2021 Monocytes/100 WBC (Bld) 15.9 % 0-10 [facility] Work Phone: Blood platelet mean volumeon 12-05-2021 Platelet mean volume (Bld) [Entitic vol] 11.6 fL 6.2-12.0 [facility] Work Phone: Determination of erythrocyte mean corpuscular volume (MCV)on 12-05-2021 MCV (RBC) [Entitic vol] 98.8 fL 81-99 [facility] Work Phone: Hematocrit Auto (Bld) [Volum e fraction]on 12-05-2021 Hematocrit (Bld) [Volume fraction] 39.5 % 37-47 [facility] Work Phone: [phone] Ketones Test strip Ql (U)on 12-05-2021 Ketones Ql (U) Negative Negative [facility] Work Phone: [phone] Laboratory - Chemistry and C hemistry - challengeon 12-05-2021 ALP [Catalytic activity/Vol] 50 U/L 45-117 [facility] Work Phone: [phone] ALT [Catalytic activity/Vol] 19 U/L 13-56 [facility] Work Phone: [phone] CO2 [Moles/Vol] 28.0 mmol/L 21.0-32.0 [facility] Work Phone: [phone] Globulin (S) [Mass/Vol] 3.4 g/dL 2.2-4.2 [facility] Work Phone: [phone] Urea nitrogen/Creatinine [Mass ratio] 13.3 mg/mg 10-20 [facility] Work Phone: [phone] Laboratory - Hematology and Cell countson 12-05-2021 Erythrocyte distribution width (RBC) [Entitic vol] 44.6 fL 35.1-43.9 [facility] Work Phone: [phone] Erythrocyte distribution width (RBC) [Ratio] 12.2 % 11.6-14.6 [facility] Work Phone: [phone] Immature granulocytes/100 WBC (Bld) 0.400 % 0.0-0.9 [facility] Work Phone: [phone] Comment on above: IG% - Immature Granu locytes (promyelocytes, myelocytes and metamyelocytes) > 1% indicates that a LEFT SHIFT is Present. MCH (RBC) [Entitic mass] 31.5 pg 27.0-32.0 [facility] Work Phone: [phone] Nucleated RBC/100 WBC (Bld) [Ratio] 0 % 0-5 [facility] Work Phone: [phone] MCHC Auto (RBC) [Mass/Vol]on 12-05-2021 MCHC (RBC) [Mass/Vol] 31.9 g/dL 32-36 [facility] Work Phone: [phone] Nitrite Test strip Ql (U)on 12-05-2021 Nitrite Ql (U) Negative Negative [facility] Work Phone: No Panel Informationon 12-05 Estimated GFR (MDRD) Amer 117 mL/min >60 [facility] Work Phone: Comment on above: GFR Calc Estimated GFR (MDRD) Non-Af Amer 97 mL/min >60 [facility] Work Phone: Comment on above: Non- GFR Calc Platelets bldon 12-05-2021 Platelets (Bld) [#/Vol] 183 10*3/uL 150-450 [facility] Work Phone: Protein Test strip Ql (U)on 12-05-2021 Protein Ql (U) 15 mg/dl Negative [facility] Work Phone: Review by pathologiston Pathologist review Samir (Unsp spec) [Interp] Reviewed [facility] Work Phone: Comment on above: Previous reported re sult: Melissa herman Edited by: RGOOD on 12/06/21:1504Leukopenia and neutropenia. Clinical correlation necessary.Sj Geiger M.D. 12/06/21 AMENDED REPORT 12/06/21 1504 PATH REV previously reported as: Melissa herman Serum DNA double strand anti body assay (units/volume)on 12-05-2021 DNA double strand Ab Qn (S) 63 [IU]/mL 0-9 [facility] Work Phone: Comment on above: Negative <5 Equivoca l 5 - 9 Positive >9Performed at: - [facility] [address] [id number] Director: Pacheco Gramajo PhD, Phone: [phone] Serum or plasma albumin evelyn urement (mass/volume)on 12-05-2021 Albumin [Mass/Vol] 3.8 g/dL 3.2-5.0 [facility] Work Phone: Serum or plasma albumin/glob ulin mass ratioon 12-05-2021 Albumin/Globulin [Mass ratio] 1.1 {ratio} 0.9-2.4 [facility] Work Phone: [phone] Serum or plasma calcium evelyn urement (mass/volume)on 12-05-2021 Calcium [Mass/Vol] 9.4 mg/dL 8.5-10.1 [facility] Work Phone: [phone] Serum or plasma complement C 3 measurement (mass/volume)on 12-05-2021 Complement C3 [Mass/Vol] 81 mg/dL 82-167 [facility] Work Phone: [phone] Comment on above: Performed at: [facility] [employer] [address] [id number] Director: Pacheco Gramajo PhD, Phone: [phone] Serum or plasma complement C 4 measurement (mass/volume)on 12-05-2021 Complement C4 [Mass/Vol] 13 mg/dL 12-38 [facility] Work Phone: [phone] Serum or plasma creatinine m easurement (mass/volume)on 12-05-2021 Creatinine [Mass/Vol] 0.68 mg/dL 0.55-1.02 [facility] Work Phone: [phone] Comment on above: The validity of the calculated GFR & GFRAA in patients over 70 years has not been determined. Clinical correlation is essential. Serum or plasma urea nitroge n measurement (mass/volume)on 12-05-2021 Urea nitrogen [Mass/Vol] 9 mg/dL 7-18 [facility] Work Phone: [phone] Thin prep Papanicolaou smear with manual screeningon 12-05-2021 Thin prep Papanicolaou smear with manual screening 20 U/L 15-37 [facility] Work Phone: [phone] Thin prep Papanicolaou smear with manual screening 6 5-15 [facility] Work Phone: Urine blood detectionon RBC Ql (U) Negative Negative [facility] Work Phone: [phone] Urine clarityon 12-05-2021 Clarity (U) Clear Clear [facility] Work Phone: [phone] Urine color determinationon 12-05-2021 Color (U) Yellow Yellow [facility] Work Phone: Urine creatinine measurement (mass/volume)on 12-05-2021 Creatinine (U) [Mass/Vol] 64.10 mg/dL NO RANGE EST. [facility] Work Phone: Urine glucose detectionon Glucose Ql (U) Normal mg/dl Normal [facility] Work Phone: Urine leukocyte esterase det ection by dipstickon 12-05-2021 Leukocyte esterase Test strip Ql (U) 100 /ul Negative [facility] Work Phone: Urine pHon 12-05-2021 pH (U) 7.0 [pH] 5.0 - 8.0 [facility] Work Phone: Urine protein measurement (m ass/volume)on 12-05-2021 Protein (U) [Mass/Vol] 22.0 mg/dL 0.0-11.[address] [facility] Work Phone: Urine protein/creatinine mas s ratioon 12-05-2021 Protein/Creatinine (U) [Mass ratio] 343 mg/g CRE 0-200 [facility] Work Phone: Urine specific gravity measu rementon 12-05-2021 Specific gravity (U) [Rel density] 1.010 1.002-1.030 [facility] Work Phone: Urobilinogen Auto test strip Ql (U)on 12-05-2021 Urobilinogen Ql (U) Normal mg/dl Normal [facility] Work Phone: Laboratory - Molecular patho logyon 10-14-2021 Noninvasive colorectal cancer DNA and occult blood screening Samir (Stl) [Interp] Negative Negative [facility] Work Phone: Comment on above: [employer] (CLIA #:[id number] [place] [id number] REJI BRUNO , Clinical Laboratory Medical DirectorNEGATIVE [...] (Reymundo Thakur al, N Engl J Med 2014;370(14):7624-4090) The normal value (reference range) for this assay is negative.COLOGUARD RE-SCREENING RECOMMENDATION: Periodic colorectal cancer screening is an important part of preventive healthcare for asymptomatic individuals at average risk for colorectal cancer. Following a negative Cologuard result, the [place] [employer] and U.S. Multi-Society Task Force screening guidelines recommend a Cologuard re-screening interval of 3 years. References: [place] [employer] Guideline for Colorectal Cancer Screening: https://www.cancer.org/cancer/uflal-yqcueb-udusvx/detection-di agnosis-staging/acs-recommendations.html.; Dex DK, Bucky CR, Mara MaravillaK, Colorectal Cancer Screening: Recommendations for Physicians and Patients from the U.S. Multi-Society Task Force on Colorectal Cancer Screening , Am J Gastroenterology 2017; 112:8018-2316.TEST DESCRIPTION: Composite algorithmic analysis of stool DNA-biomarkers [...] (Reymundo Thakur al, N Engl J Med 2014;370(14):4194-4519.) Cologuard may produce a false negative or false positive result (no colorectal cancer or precancerous polyp present at colonoscopy follow up). A negative Cologuard test result does not guarantee the absence of CRC or advanced adenoma (pre-cancer). The current Cologuard screening interval is every 3 years. ([place] [employer] and U.S. Multi-Society Task Force). Cologuard performance data in a 10,000 patient pivotal study using colonoscopy as the reference method can be accessed at the following location: www.Beddit/results. Additional description of the Cologuard test process, warnings and precautions can be found at www.cologuard.com. Mamm - Screening Mammogram w / Tomosynthesison 10-10-2021 MG Breast Screening Normal [facility] Work Phone: Office Visit (Primary Care [...] No murmur, No gallop. Integumentary: Warm, Dry, Mcintosh, Intact. Psychiatric: Cooperative, Appropriate mood AND affect, Normal judgment. Signatures Electronically signed by : Roosevelt Carter MD; Oct 03 2021 8:57AM EST (Author) Normal [facility] Tobacco Screening.on 022 Adult depression screening assessment No [facility] Work Phone: Fall risk assessment a) No falls within the last year [facility] Work Phone: Tobacco use status CPHS b) No [facility] Work Phone: Absolute lymphocyte counton 08-30-2021 Lymphocytes Auto (Unsp spec) [#/Vol] 0.74 10*3/uL 0.83-4.51 [facility] Work Phone: Basophil percentageon 2021 Basophils/100 WBC (Bld) 0.6 % 0-1 [facility] Work Phone: Bilirubin [Mass/Vol] 0.30 mg/dL 0.20-1.00 [facility] Work Phone: Comment on above: For patients on eltr ombopag therapy, use of Dimension [place] TBIL is not recommended. Chloride [Moles/Vol] 106 mmol/L 98-107 [facility] Work Phone: Eosinophils/100 WBC (Bld) 1.3 % 0-5 [facility] Work Phone: [phone] Glucose [Mass/Vol] 66 mg/dL 74-106 [facility] Work Phone: [phone] Neutrophils (Bld) [#/Vol] 1.9 10*3/uL 2.0-7.7 [facility] Work Phone: [phone] Neutrophils/100 WBC (Bld) 59.7 % 47-70 [facility] Work Phone: [phone] Potassium [Moles/Vol] 3.9 mmol/L 3.5-5.1 [facility] Work Phone: [phone] Comment on above: Slight Hemolysis, Re sult may be falsely increased. Protein [Mass/Vol] 6.9 g/dL 6.4-8.2 [facility] Work Phone: [phone] Sodium [Moles/Vol] 137 mmol/L 136-145 [facility] Work Phone: [phone] WBC (Bld) [#/Vol] 3.1 10*3/uL 4.4-11.0 [facility] Work Phone: [phone] Bilirubin Test strip Ql (U)o n 08-30-2021 Bilirubin Ql (U) Negative Negative [facility] Work Phone: [phone] Blood erythrocytes count (nu mber/volume)on 08-30-2021 RBC (Bld) [#/Vol] 4.02 10*6/uL 4.2-5.4 [facility] Work Phone: [phone] Blood hemoglobin measurement (mass/volume)on 08-30-2021 Hemoglobin (Bld) [Mass/Vol] 12.7 g/dL 12.0-15.0 [facility] Work Phone: Blood lymphocytes/100 leukoc yteson 08-30-2021 Lymphocytes/100 WBC (Bld) 23.7 % 19-41 [facility] Work Phone: [phone] Blood monocytes/100 leukocyt eson 08-30-2021 Monocytes/100 WBC (Bld) 14.4 % 0-10 [facility] Work Phone: Blood platelet mean volumeon 08-30-2021 Platelet mean volume (Bld) [Entitic vol] 10.8 fL 6.2-12.0 [facility] Work Phone: Determination of erythrocyte mean corpuscular volume (MCV)on 08-30-2021 MCV (RBC) [Entitic vol] 103.2 fL 81-99 [facility] Work Phone: Hematocrit Auto (Bld) [Volum e fraction]on 08-30-2021 Hematocrit (Bld) [Volume fraction] 41.5 % 37-47 [facility] Work Phone: Ketones Test strip Ql (U)on 08-30-2021 Ketones Ql (U) Negative Negative [facility] Work Phone: Laboratory - Chemistry and C hemistry - challengeon 08-30-2021 ALP [Catalytic activity/Vol] 48 U/L 45-117 [facility] Work Phone: ALT [Catalytic activity/Vol] 23 U/L 13-56 [facility] Work Phone: [phone] CO2 [Moles/Vol] 26.0 mmol/L 21.0-32.0 [facility] Work Phone: [phone] Globulin (S) [Mass/Vol] 3.5 g/dL 2.2-4.2 [facility] Work Phone: Urea nitrogen/Creatinine [Mass ratio] 16.5 mg/mg 10-20 [facility] Work Phone: Laboratory - Hematology and Cell countson 08-30-2021 Erythrocyte distribution width (RBC) [Entitic vol] 46.5 fL 35.1-43.9 [facility] Work Phone: Erythrocyte distribution width (RBC) [Ratio] 12.3 % 11.6-14.6 [facility] Work Phone: Immature granulocytes/100 WBC (Bld) 0.300 % 0.0-0.9 [facility] Work Phone: Comment on above: IG% - Immature Granu locytes (promyelocytes, myelocytes and metamyelocytes) > 1% indicates that a LEFT SHIFT is Present. MCH (RBC) [Entitic mass] 31.6 pg 27.0-32.0 [facility] Work Phone: Nucleated RBC/100 WBC (Bld) [Ratio] 0 % 0-5 [facility] Work Phone: [phone] MCHC Auto (RBC) [Mass/Vol]on 08-30-2021 MCHC (RBC) [Mass/Vol] 30.6 g/dL 32-36 [facility] Work Phone: [phone] Nitrite Test strip Ql (U)on 08-30-2021 Nitrite Ql (U) Negative Negative [facility] Work Phone: No Panel Informationon 08-30 Estimated GFR (MDRD) Amer 119 mL/min >60 [facility] Work Phone: Comment on above: GFR Calc Estimated GFR (MDRD) Non-Af Amer 98 mL/min >60 [facility] Work Phone: Comment on above: Non- GFR Calc Platelets bldon 08-30-2021 Platelets (Bld) [#/Vol] 177 10*3/uL 150-450 [facility] Work Phone: [phone] Protein Test strip Ql (U)on 08-30-2021 Protein Ql (U) Negative Negative [facility] Work Phone: [phone] Serum DNA double strand anti body assay (units/volume)on 08-30-2021 DNA double strand Ab Qn (S) 80 [IU]/mL 0-9 [facility] Work Phone: [phone] Comment on above: Negative <5 Equivoca l 5 - 9 Positive >9Performed at: [facility] [address] [id number] Director: Pacheco Gramajo PhD, Phone: [phone] Serum or plasma albumin evelyn urement (mass/volume)on 08-30-2021 Albumin [Mass/Vol] 3.4 g/dL 3.2-5.0 [facility] Work Phone: Serum or plasma albumin/glob ulin mass ratioon 08-30-2021 Albumin/Globulin [Mass ratio] 1.0 {ratio} 0.9-2.4 [facility] Work Phone: Serum or plasma calcium evelyn urement (mass/volume)on 08-30-2021 Calcium [Mass/Vol] 8.7 mg/dL 8.5-10.1 [facility] Work Phone: Serum or plasma complement C 3 measurement (mass/volume)on 08-30-2021 Complement C3 [Mass/Vol] 86 mg/dL 82-167 [facility] Work Phone: Comment on above: Performed at: [place] [id number] Director: Pacheco Gramajo PhD, Phone: [phone] Serum or plasma complement C 4 measurement (mass/volume)on 08-30-2021 Complement C4 [Mass/Vol] 12 mg/dL 12-38 [facility] Work Phone: [phone] Serum or plasma creatinine m easurement (mass/volume)on 08-30-2021 Creatinine [Mass/Vol] 0.67 mg/dL 0.55-1.02 [facility] Work Phone: Comment on above: The validity of the calculated GFR & GFRAA in patients over 70 years has not been determined. Clinical correlation is essential. Serum or plasma urea nitroge n measurement (mass/volume)on 08-30-2021 Urea nitrogen [Mass/Vol] 11 mg/dL 7-18 [facility] Work Phone: [phone] Thin prep Papanicolaou smear with manual screeningon 08-30-2021 Thin prep Papanicolaou smear with manual screening 22 U/L 15-37 [facility] Work Phone: Comment on above: Slight Hemolysis, Re sult may be falsely increased. Thin prep Papanicolaou smear with manual screening 5 5-15 [facility] Work Phone: Urine blood detectionon - RBC Ql (U) Negative Negative [facility] Work Phone: Urine clarityon 08-30-2021 Clarity (U) Clear Clear [facility] Work Phone: Urine color determinationon 08-30-2021 Color (U) Yellow Yellow [facility] Work Phone: Urine creatinine measurement (mass/volume)on 08-30-2021 Creatinine (U) [Mass/Vol] 70.60 mg/dL NO RANGE EST. [facility] Work Phone: Urine glucose detectionon Glucose Ql (U) Normal mg/dl Normal [facility] Work Phone: Urine leukocyte esterase det ection by dipstickon 08-30-2021 Leukocyte esterase Test strip Ql (U) 25 /ul Negative [facility] Work Phone: Urine pHon 08-30-2021 pH (U) 7.0 [pH] 5.0 - 8.0 [facility] Work Phone: Urine protein measurement (m ass/volume)on 08-30-2021 Protein (U) [Mass/Vol] 18.8 mg/dL 0.0-11.[address] [facility] Work Phone: Urine protein/creatinine mas s ratioon 08-30-2021 Protein/Creatinine (U) [Mass ratio] 266 mg/g CRE 0-200 [facility] Work Phone: Urine specific gravity measu rementon 08-30-2021 Specific gravity (U) [Rel density] 1.010 1.002-1.030 [facility] Work Phone: Urobilinogen Auto test strip Ql (U)on 08-30-2021 Urobilinogen Ql (U) Normal mg/dl Normal [facility] Work Phone: Basophil percentageon 2021 Chloride [Moles/Vol] 103 mmol/L 98-107 [facility] Work Phone: [phone] Glucose [Mass/Vol] 76 mg/dL 74-106 [facility] Work Phone: [phone] Potassium [Moles/Vol] 4.1 mmol/L 3.5-5.1 [facility] Work Phone: [phone] Sodium [Moles/Vol] 139 mmol/L 136-145 [facility] Work Phone: [phone] WBC (Bld) [#/Vol] 3.7 10*3/uL 4.4-11.0 [facility] Work Phone: [phone] Blood erythrocytes count (nu mber/volume)on 07-31-2021 RBC (Bld) [#/Vol] 4.08 10*6/uL 4.2-5.4 [facility] Work Phone: [phone] Blood hemoglobin measurement (mass/volume)on 07-31-2021 Hemoglobin (Bld) [Mass/Vol] 13.0 g/dL 12.0-15.0 [facility] Work Phone: [phone] Blood platelet mean volumeon 07-31-2021 Platelet mean volume (Bld) [Entitic vol] 10.9 fL 6.2-12.0 [facility] Work Phone: [phone] Determination of erythrocyte mean corpuscular volume (MCV)on 07-31-2021 MCV (RBC) [Entitic vol] 100.0 fL 81-99 [facility] Work Phone: [phone] Hematocrit Auto (Bld) [Volum e fraction]on 07-31-2021 Hematocrit (Bld) [Volume fraction] 40.8 % 37-47 [facility] Work Phone: [phone] Laboratory - Chemistry and C hemistry - challengeon 07-31-2021 CO2 [Moles/Vol] 29.0 mmol/L 21.0-32.0 [facility] Work Phone: [phone] Urea nitrogen/Creatinine [Mass ratio] 22.0 mg/mg 10-20 [facility] Work Phone: [phone] Laboratory - Hematology and Cell countson 07-31-2021 Erythrocyte distribution width (RBC) [Entitic vol] 46.6 fL 35.1-43.9 [facility] Work Phone: Erythrocyte distribution width (RBC) [Ratio] 12.7 % 11.6-14.6 [facility] Work Phone: MCH (RBC) [Entitic mass] 31.9 pg 27.0-32.0 [facility] Work Phone: [phone] MCHC Auto (RBC) [Mass/Vol]on 07-31-2021 MCHC (RBC) [Mass/Vol] 31.9 g/dL 32-36 [facility] Work Phone: No Panel Informationon 07-31 Estimated GFR (MDRD) Amer 126 mL/min >60 [facility] Work Phone: Comment on above: GFR Calc Estimated GFR (MDRD) Non-Af Amer 104 mL/min >60 [facility] Work Phone: Comment on above: Non- GFR Calc Urine Microalbumin/Creatinine Ratio 72.1 mg/g CRE <30 [facility] Work Phone: Platelets bldon 07-31-2021 Platelets (Bld) [#/Vol] 187 10*3/uL 150-450 [facility] Work Phone: Serum DNA double strand anti body assay (units/volume)on 07-31-2021 DNA double strand Ab Qn (S) 80 [IU]/mL [facility] Work Phone: Comment on above: Negative <5 Equivoca l 5 - 9 Positive >9Performed at: - [facility] [id number] Director: Pacheco Gramajo PhD, Phone: [phone] Serum or plasma calcium evelyn urement (mass/volume)on 07-31-2021 Calcium [Mass/Vol] 9.3 mg/dL 8.5-10.1 [facility] Work Phone: [phone] Serum or plasma complement C 3 measurement (mass/volume)on 07-31-2021 Complement C3 [Mass/Vol] 80 mg/dL [facility] Work Phone: Comment on above: Performed at: [address] [id number] Director: Pacheco Gramajo PhD, Phone: [phone] Serum or plasma creatinine m easurement (mass/volume)on 07-31-2021 Creatinine [Mass/Vol] 0.64 mg/dL 0.55-1.02 [facility] Work Phone: Comment on above: The validity of the calculated GFR & GFRAA in patients over 70 years has not been determined. Clinical correlation is essential. Serum or plasma urea nitroge n measurement (mass/volume)on 07-31-2021 Urea nitrogen [Mass/Vol] 14 mg/dL 7-18 [facility] Work Phone: Thin prep Papanicolaou smear with manual screeningon 07-31-2021 Thin prep Papanicolaou smear with manual screening 7 5-15 [facility] Work Phone: [phone] Thin prep Papanicolaou smear with manual screening 74.3 mg/L NO RANGE EST. [facility] Work Phone: Urine creatinine measurement (mass/volume)on 07-31-2021 Creatinine (U) [Mass/Vol] 103.00 mg/dL NO RANGE EST. [facility] Work Phone: Absolute lymphocyte counton 06-03-2021 Lymphocytes Auto (Unsp spec) [#/Vol] 0.40 10*3/uL 0.83-4.51 [facility] Work Phone: Basophil percentageon 2021 Basophils/100 WBC (Bld) 0.3 % 0-1 [facility] Work Phone: [phone] Bilirubin [Mass/Vol] 0.20 mg/dL 0.20-1.00 [facility] Work Phone: [phone] Comment on above: For patients on eltr ombopag therapy, use of Dimension [place] TBIL is not recommended. Chloride [Moles/Vol] 101 mmol/L 98-107 [facility] Work Phone: Eosinophils/100 WBC (Bld) 0.6 % 0-5 [facility] Work Phone: Glucose [Mass/Vol] 97 mg/dL 74-106 [facility] Work Phone: Neutrophils (Bld) [#/Vol] 2.8 10*3/uL 2.0-7.7 [facility] Work Phone: Neutrophils/100 WBC (Bld) 79.4 % 47-70 [facility] Work Phone: Potassium [Moles/Vol] 3.9 mmol/L 3.5-5.1 [facility] Work Phone: Protein [Mass/Vol] 7.3 g/dL 6.4-8.2 [facility] Work Phone: Sodium [Moles/Vol] 135 mmol/L 136-145 [facility] Work Phone: WBC (Bld) [#/Vol] 3.5 10*3/uL 4.4-11.0 [facility] Work Phone: Bilirubin Test strip Ql (U)o n 06-03-2021 Bilirubin Ql (U) Negative Negative [facility] Work Phone: Blood erythrocytes count (nu mber/volume)on 06-03-2021 RBC (Bld) [#/Vol] 3.71 10*6/uL 4.2-5.4 [facility] Work Phone: Blood hemoglobin measurement (mass/volume)on 06-03-2021 Hemoglobin (Bld) [Mass/Vol] 12.1 g/dL 12.0-15.0 [facility] Work Phone: Blood lymphocytes/100 leukoc yteson 06-03-2021 Lymphocytes/100 WBC (Bld) 11.4 % 19-41 [facility] Work Phone: Blood manual differential co mment interpretation (narrative result)on 06-03-2021 Manual differential comment Samir (Bld) [Interp] SCANNED [facility] Work Phone: [phone] Comment on above: LYMPHOPENIA NOTED Blood monocytes/100 leukocyt eson 06-03-2021 Monocytes/100 WBC (Bld) 7.7 % 0-10 [facility] Work Phone: Blood platelet mean volumeon 06-03-2021 Platelet mean volume (Bld) [Entitic vol] 10.6 fL 6.2-12.0 [facility] Work Phone: [phone] Determination of erythrocyte mean corpuscular volume (MCV)on 06-03-2021 MCV (RBC) [Entitic vol] 100.5 fL 81-99 [facility] Work Phone: [phone] Hematocrit Auto (Bld) [Volum e fraction]on 06-03-2021 Hematocrit (Bld) [Volume fraction] 37.3 % 37-47 [facility] Work Phone: [phone] Ketones Test strip Ql (U)on 06-03-2021 Ketones Ql (U) Negative Negative [facility] Work Phone: [phone] Laboratory - Chemistry and C hemistry - challengeon 06-03-2021 ALP [Catalytic activity/Vol] 72 U/L 45-117 [facility] Work Phone: [phone] ALT [Catalytic activity/Vol] 20 U/L 13-56 [facility] Work Phone: [phone] CO2 [Moles/Vol] 29.0 mmol/L 21.0-32.0 [facility] Work Phone: [phone] Globulin (S) [Mass/Vol] 3.8 g/dL 2.2-4.2 [facility] Work Phone: [phone] Urea nitrogen/Creatinine [Mass ratio] 27.6 mg/mg 10-20 [facility] Work Phone: [phone] Laboratory - Hematology and Cell countson 06-03-2021 Erythrocyte distribution width (RBC) [Entitic vol] 48.9 fL 35.1-43.9 [facility] Work Phone: [phone] Erythrocyte distribution width (RBC) [Ratio] 13.2 % 11.6-14.6 [facility] Work Phone: [phone] Immature granulocytes/100 WBC (Bld) 0.600 % 0.0-0.9 [facility] Work Phone: [phone] Comment on above: IG% - Immature Granu locytes (promyelocytes, myelocytes and metamyelocytes) > 1% indicates that a LEFT SHIFT is Present. MCH (RBC) [Entitic mass] 32.6 pg 27.0-32.0 [facility] Work Phone: Nucleated RBC/100 WBC (Bld) [Ratio] 0 % 0-5 [facility] Work Phone: [phone] MCHC Auto (RBC) [Mass/Vol]on 06-03-2021 MCHC (RBC) [Mass/Vol] 32.4 g/dL 32-36 [facility] Work Phone: [phone] Nitrite Test strip Ql (U)on 06-03-2021 Nitrite Ql (U) Negative Negative [facility] Work Phone: No Panel Informationon 06-03 Estimated GFR (MDRD) Amer 131 mL/min >60 [facility] Work Phone: Comment on above: GFR Calc Estimated GFR (MDRD) Non-Af Amer 108 mL/min >60 [facility] Work Phone: Comment on above: Non- GFR Calc Platelets bldon 06-03-2021 Platelets (Bld) [#/Vol] 197 10*3/uL 150-450 [facility] Work Phone: Protein Test strip Ql (U)on 06-03-2021 Protein Ql (U) 15 mg/dl Negative [facility] Work Phone: [phone] Review by pathologiston 05-08 Pathologist review Samir (Unsp spec) [Interp] Reviewed [facility] Work Phone: Comment on above: Previous reported re sult: Melissa herman Edited by: MARVIN on 06/05/21:1426LeukopeniaMacrocytosisClinical correlation necessary.Sj Geiger M.D. 06/05/21 AMENDED REPORT 06/05/21 1426 PATH REV previously reported as: August batsheva Serum DNA double strand anti body assay (units/volume)on 06-03-2021 DNA double strand Ab Qn (S) 110 [IU]/mL [facility] Work Phone: Comment on above: Negative <5 Equivoca l 5 - 9 Positive >9Performed at: [facility] [address] [id number] Director: Pacheco Gramajo PhD, Phone: [phone] Serum or plasma albumin evelyn urement (mass/volume)on 06-03-2021 Albumin [Mass/Vol] 3.5 g/dL 3.2-5.0 [facility] Work Phone: Serum or plasma albumin/glob ulin mass ratioon 06-03-2021 Albumin/Globulin [Mass ratio] 0.9 {ratio} 0.9-2.4 [facility] Work Phone: Serum or plasma calcium evelyn urement (mass/volume)on 06-03-2021 Calcium [Mass/Vol] 8.8 mg/dL 8.5-10.1 [facility] Work Phone: Serum or plasma complement C 3 measurement (mass/volume)on 06-03-2021 Complement C3 [Mass/Vol] 83 mg/dL [facility] Work Phone: Comment on above: Performed at: [facility] [id number] [place], [place] [id number] Director: Pacheco Gramajo PhD, Phone: [phone] Serum or plasma complement C 4 measurement (mass/volume)on 06-03-2021 Complement C4 [Mass/Vol] 12 mg/dL [facility] Work Phone: Serum or plasma creatinine m easurement (mass/volume)on 06-03-2021 Creatinine [Mass/Vol] 0.62 mg/dL 0.55-1.02 [facility] Work Phone: Comment on above: The validity of the calculated GFR & GFRAA in patients over 70 years has not been determined. Clinical correlation is essential. Serum or plasma urea nitroge n measurement (mass/volume)on 06-03-2021 Urea nitrogen [Mass/Vol] 17 mg/dL 7-18 [facility] Work Phone: Thin prep Papanicolaou smear with manual screeningon 06-03-2021 Thin prep Papanicolaou smear with manual screening 18 U/L 15-37 [facility] Work Phone: Thin prep Papanicolaou smear with manual screening 5 5-15 [facility] Work Phone: Urine blood detectionon 05-08 RBC Ql (U) Negative Negative [facility] Work Phone: Urine clarityon 06-03-2021 Clarity (U) Clear Clear [facility] Work Phone: Urine color determinationon 06-03-2021 Color (U) Yellow Yellow [facility] Work Phone: Urine creatinine measurement (mass/volume)on 06-03-2021 Creatinine (U) [Mass/Vol] 24.00 mg/dL NO RANGE EST. [facility] Work Phone: Urine glucose detectionon Glucose Ql (U) Normal mg/dl Normal [facility] Work Phone: Urine leukocyte esterase det ection by dipstickon 06-03-2021 Leukocyte esterase Test strip Ql (U) Negative Negative [facility] Work Phone: [phone] Urine pHon 06-03-2021 pH (U) 6.5 [pH] [facility] Work Phone: Urine protein measurement (m ass/volume)on 06-03-2021 Protein (U) [Mass/Vol] 7.4 mg/dL 0.0-11.[address] [facility] Work Phone: Urine protein/creatinine mas s ratioon 06-03-2021 Protein/Creatinine (U) [Mass ratio] 308 mg/g CRE 0-200 [facility] Work Phone: Urine specific gravity measu rementon 06-03-2021 Specific gravity (U) [Rel density] 1.010 [facility] Work Phone: Urobilinogen Auto test strip Ql (U)on 06-03-2021 Urobilinogen Ql (U) Normal mg/dl Normal [facility] Work Phone: DIGITAL MAMM SCREENING W/ TO Alatorre 09-05-2020 DIGITAL MAMM SCREENING W/ KASANDRA Patient Name: ANA HUERTA STUDY: Digital mammography screening with kasandra; 09/05/2020 11:19 am ACCESSION NUMBER(S): [id number] ORDERING CLINICIAN: ROOSEVELT CARTER INDICATION: Screening. COMPARISON: [...] Screening. Electronically signed by: SAJI TAO MD [facility] Mamm - Screening Mammogram w / Tomosynthesison 09-05-2020 MG Breast Screening Normal [facility] Work Phone: Tobacco Screening.on 021 Fall risk assessment a) No falls within the last year [facility] Work Phone: Tobacco Screening. b) No [facility] Work Phone: CT CHEST W CONTRASTon 2020 CT CHEST W CONTRAST Patient Name: ANA HUERTA STUDY: CT CHEST W CONTRAST; 07/12/2020 9:27 am INDICATION: nodule, SOB Other chest pain Shortness of breath Solitary pulmonary nodule. COMPARISON: 03/25/2020 ACCESSION NUMBER(S): [id number] ORDERING CLINICIAN: ROOSEVELT CARTER TECHNIQUE: CT of [...] Electronically signed by: JACE BUSH MD Normal [facility] Echocardiogramon 06-12-2020 [place] [id number] [phone], TRANSTHORACIC ECHOCARDIOGRAM REPORT Patient Name: ANA HUERTA Reading Physician: [id number] Bret Woody MD Study Date: 06/12/2020 Referring Physician: [id number] ROOSEVELT CARTER MRN/PID: [id number] PCP: Accession/Order#: [id number] Department Location: [facility] Echo Lab Date of : 1970 Fellow: Gender: F Nurse: Admit Date: Floatman: Perez López [facility] Admission Status: Outpatient Additional Staff: Height: 160.02 cm CC Report to: Weight: 60.33 kg Study Type: Echocardiogram BSA: 1.63 m2 Blood Pressure: 114 /76 mmHg Diagnosis/ICD: R06.00-Dyspnea, unspecified Indication: Procedure/CPT: Echo [id number] Study Detail: The following Echo studies were [...] LA Area A2C: 13.0 cm2 LA [place] A4C: 5.6 cm LA [place] A2C: 5.2 cm LA Volume Index: 16.5 [...] 1.0 m/s (0.6-0.9m/s) PV Max P.2 mmHg [id number] Bret Woody MD Electronically signed on 06/12/2020 at 10:26:18 AM Final Normal [facility] C1 ESTERASE INHIBITORon C1 ESTERASE INHIBITOR 38 mg/dL Normal 21-39 [facility] Comment on above: Performed By: #### C 1ESQ #### [facility] [address] [address], [place] [id number] Provider Note - ED v2on Provider Note - ED v2 Provider Note - ED v2: Chart Review: ED NOTES ED NOTES: CC=SWELLLING/IRRITATION TO THROAT HPI-this is a 50-year-old female who has a 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 Normal [facility] Risk Screen - Adult Emergenc yon 05-09-2020 [...] instruction; written material Cultural Considerationsnone Developmental Considerationsnone Anabaptist Considerationsnone Learning Assessment (Other Learner): Learning Assessment (Other Learner): Other learner availableno Pressure Injury/TB/Substance: Pressure Injury: Do you have a coughno Substance Use Current or Former Historynever: Cigarette/Tobacco, Alcohol, Street Drugs Admission Risk Screen: Significant IndicatorsComplete CAGE: CAGE: Is this an injured patient at a Trauma Center ([facility]/[place]anna [facility]cl[place]): no Electronic Signatures: Lulu Torres (RN) (Signed 09-May-2020 19:45) Authored: Preferred Language, Advanced Directives, Family Violence Adult, Learning Assessment (Patient), Learning Assessment (Other Learner), Pressure Injury/TB/Substance, Pressure Injury, CAGE Last Updated: 09-May-2020 19:45 by Lulu Torres (CARLOS) [facility] Triage - EDon 05-09-2020 Triage - ED [...] Accompanied By: self Language: Spoken Language Preferred: [place] Reading Language Preferred: [place] 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 Requested: no gui developer was requested MDRO: History of MDRO: no [...] BMI (kg/m2): 23.242 Calculated BSA (m2) 1.63 [place] Coma Scale: Best Eye Response: (E4) spontaneous Best Motor Response: (M6) obeys commands Best Verbal Response: (V5) oriented Daniela Score: 15 Cough lasting greater than 3 weeks: no Mask applied: yes PHOTONICS ENGINEERING TECHNOLOGIST History: menopause Patient has homicidal thoughts: no [...] Last Updated: 09-May-2020 21:43 by Lulu Torres) [facility] aP[facility] Coag (Bld) [Time] 22 s Low 25 - 35 [facility] Comment on above: Result Comment: THE APTT IS NO LONGER USED FOR MONITORING UNFRACTIONATED HEPARIN THERAPY. FOR MONITORING HEPARIN THERAPY, USE THE HEPARIN ASSAY. Performed By: #### C 1ESQ #### [facility] [address], [place] [id number] BASIC METABOLIC PANELon 12-2 Anion gap [Moles/Vol] 10 mmol/L Normal 10 - 20 [facility] Comment on above: Performed By: #### B MP ####[address] [address] Calcium [Mass/Vol] 8.7 mg/dL Normal 8.6 - 10.3 [facility] Comment on above: Performed By: #### B MP ####[address] [address] Chloride [Moles/Vol] 104 mmol/L Normal 98 - 107 [facility] Comment on above: Performed By: #### B MP ####[address] [address] Creatinine [Mass/Vol] 0.68 mg/dL Normal 0.50 - 1.05 [facility] Comment on above: Performed By: #### B MP ####[address] [address] GFR- AM. >60 Normal >60 [facility] Comment on above: Result Comment: CALC ULATIONS OF ESTIMATED GFR ARE PERFORMED USING THE MDRD STUDY EQUATION FOR THE IDMS-TRACEABLE CREATININE METHODS. CLIN CHEM 2007;53:766-72 Performed By: #### B MP ####[address] [address] GFR-NON AM. >60 Normal >60 [facility] Comment on above: Performed By: #### B MP ####[address] [address] Glucose [Mass/Vol] 121 mg/dL High 74 - 99 [facility] Comment on above: Performed By: #### B MP ####[address] [address] HCO3 (Bld) [Moles/Vol] 23 mmol/L Normal 21 - 32 [facility] Comment on above: Performed By: #### B MP ####[address] [address] Potassium [Moles/Vol] 3.7 mmol/L Normal 3.5 - 5.3 [facility] Comment on above: Performed By: #### B MP ####[address] [address] Sodium [Moles/Vol] 133 mmol/L Low 136 - 145 [facility] Comment on above: Performed By: #### B MP ####[address] [address] Urea nitrogen [Mass/Vol] 18 mg/dL Normal 6 - 23 [facility] Comment on above: Performed By: #### B MP ####[address] [address] BNPon 04-01-2020 Natriuretic peptide B (Bld) [Mass/Vol] 84 pg/mL Normal 0 - 99 [facility] Comment on above: Result Comment: . <1 00 pg/mL - Heart failure unlikely 100-299 pg/mL - Intermediate probability of acute heart . failure exacerbation. Correlate with clinical . context and patient history. >=300 pg/mL - Heart Failure likely. Correlate with clinical . context and patient history. BNP testing is performed using different testing methodology at [facility] than at other [facility]. Direct result comparisons should only be made within the same method. Performed By: #### B NP2 ####[address] [address] CBC AND DIFFERENTIALon 04-01 DIFFERENTIAL SEE MANUAL DIFF Normal [facility] Comment on above: Performed By: #### C BCDF #### [address] [address] Erythrocyte distribution width (RBC) [Ratio] 13.9 % Normal 11.5 - 14.5 [facility] Comment on above: Performed By: #### C BCDF #### [address] [address] Hematocrit (Bld) [Volume fraction] 35.6 % Low 36.0 - 46.0 [facility] Comment on above: Performed By: #### C BCDF #### [address] [address] Hemoglobin (Bld) [Mass/Vol] 11.8 g/dL Low 12.0 - 16.0 [facility] Comment on above: Performed By: #### C BCDF #### [address] [address] MCHC (RBC) [Mass/Vol] 33.2 g/dL Normal 32.0 - 36.0 [facility] Comment on above: Performed By: #### C BCDF #### [address] [address] MCV (RBC) [Entitic vol] 98 fL Normal 80 - [address] [facility] Comment on above: Performed By: #### C BCDF #### [address] [address] NUCLEATED RBC 0.1 /100 WBC Normal [facility] Comment on above: Performed By: #### C BCDF #### [address] [address] Platelets (Bld) [#/Vol] 336 10*3/uL Normal 150 - 450 [facility] Comment on above: Performed By: #### C BCDF #### [address] [address] RBC 3.64 x10E12/L Low 4.00 - 5.20 [facility] Comment on above: Performed By: #### C BCDF #### [address] [address] WBC (Bld) [#/Vol] 9.0 10*3/uL Normal 4.4 - 11.3 [facility] Comment on above: Performed By: #### C BCDF #### [address] [address] CHEST 1 VIEWon 04-01-2020 CHEST 1 VIEW Patient Name: ANA HUERTA STUDY: CHEST 1 VIEW; 04/01/2020 11:52 am INDICATION: Chest Pain. COMPARISON: 03/25/2020 ACCESSION NUMBER(S): [id number] ORDERING CLINICIAN: KRISHNA IVAN FINDINGS: AP radiograph [...] Electronically signed by: BERNIE DANIELSON MD Normal [facility] CORONAVIRUS 2019 BY PCRon SARS-CoV-2 (COVID-19) RNA JOSÉ+probe Ql (Unsp spec) Not detected Normal Not Detected [facility] Comment on above: Result Comment: . This assay is designed to detect the N2 and E genes of SARS-CoV-2 via nucleic acid amplification. A Not Detected result does not preclude COVID-19 infection since the adequacy of sample collection and/or low viral burden may result in presence of viral nucleic acids below the clinical sensitivity of this test method. Fact sheet for providers: www.fda.gov/media/178441/download Fact sheet for patients: www.fda.gov/media/811063/download This test has received FDA Emergency Use Authorization (EUA) and has been verified by [facility]. This test is only authorized for the duration of time that circumstances exist to justify the authorization of the emergency use of in vitro diagnostic tests for the detection of SARS-CoV-2 virus and/or diagnosis of COVID-19 infection under section 564(b)(1) of the Act, 21 U.S.C. 360bbb-3(b)(1), unless the authorization is terminated or revoked sooner. [facility] is certified under CLIA-88 as qualified to perform high complexity testing. Testing is performed in the [facility] laboratory located at [address] [place] [address]. Performed By: #### C OV19 #### [address] [address] Lab Specimen Source Nasal, Nasopharyngeal [facility] Comment on above: Performed By: #### C OV19 #### [address] [address] DATE OF SYMPTOM ONSET [YYYYMMDD]? [id number] [facility] Comment on above: Performed By: #### C OV19 #### [address] [address] Covid 19 Resultson 0 SARS-CoV-2 (COVID-19) RNA [...] You may also be contacted by the [facility] of [facility] to see if any of your close [...] or Naproxen (Aleve) can also be used. Yyob-qaw-kbrdbds cough and cold medicines can be used according to the instructions on the package. Some odwf-csr-xtsncya medicines also contain acetaminophen. Make sure you [...] water are not available, use alcohol-based hand junior media buyer. Avoid touching your eyes, nose, and mouth [...] ibuprofen (Motrin) (more content not included)... Normal [facility] MAGNESIUMon 04-01-2020 Magnesium [Mass/Vol] 1.93 mg/dL Normal 1.60 - 2.40 [facility] Comment on above: Performed By: #### M G ####[place] [address] MANUAL DIFFERENTIALon 2019 % BASOPHIL 0.0 % Normal 0.0 - 2.0 [facility] Comment on above: Performed By: #### C 1ESQ #### [facility] [address] [place], [place] [id number] % EOSINOPHIL 0.0 % Normal 0.0 - 6.0 [facility] Comment on above: Performed By: #### C 1ESQ #### [facility] [address] [place], [place] [id number] % LYMPHOCYTE 10.0 % Normal 13.0 - 44.0 [facility] Comment on above: Performed By: #### C 1ESQ #### [facility] [address] [place], [place] [phone] % MONOCYTE 7.0 % Normal 2.0 - 10.0 [facility] Comment on above: Performed By: #### C 1ESQ #### [facility] [address] [place], [place] [phone] % SEG NEUTROPHIL 83.0 % Normal 40.0 - 80.0 [facility] Comment on above: Result Comment: Perc ent differential counts (%) should be interpreted in the context of the absolute cell counts (cells/L). Performed By: #### C 1ESQ #### [facility] [address] [place], [place] [phone] ANC 7.47 x10E9/L Normal 1.20 - 7.70 [facility] Comment on above: Performed By: #### C 1ESQ #### [facility] [address] [place], [place] [phone] BASOPHIL 0.00 x10E9/L Normal 0.00 - 0.10 [facility] Comment on above: Performed By: #### C 1ESQ #### [facility] [address] [place], [place] [id number] EOSINOPHIL 0.00 x10E9/L Normal 0.00 - 0.70 [facility] Comment on above: Performed By: #### C 1ESQ #### [facility] [address] [place], [place] [phone] LYMPHOCYTE 0.90 x10E9/L Low 1.20 - 4.80 [facility] Comment on above: Performed By: #### C 1ESQ #### [facility] [address] [place], [place] [phone] MONOCYTE 0.63 x10E9/L Normal 0.10 - 1.00 [facility] Comment on above: Performed By: #### C 1ESQ #### [facility] [address] [place], [place] [phone] SEG NEUTROPHIL 7.47 x10E9/L High 1.20 - 7.00 [facility] Comment on above: Performed By: #### C 1ESQ #### [facility] [address] [place], [place] [id number] PT/INRon 12-27-2020 PT Coag (PPP) [Time] 13.0 s Normal 10.1 - 13.3 [facility] Comment on above: Performed By: #### C 1ESQ #### [facility] [address] [place], [place] [id number] PT, INR 1.1 Normal 0.9 - 1.1 [facility] Comment on above: Performed By: #### C 1ESQ #### [facility] [address] [place], [place] [phone] Provider Note - ED v2on 03-07 Provider [...] made to minimize errors. Minor errors in keno dealer may be present. Please call if questions.. 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 Normal [facility] RED CELL MORPHOLOGYon 2019 RBC morphology finding Nom (Bld) NORMAL Normal [facility] Comment on above: Performed By: #### C 1ESQ #### [facility] [address] [place], [place] [phone] Risk Screen - Adult Emergenc yon 04-01-2020 [...] Learning Preferencesverbal instruction Cultural Considerationsnone Developmental Considerationsnone Anabaptist Considerationsnone Learning Assessment (Other Learner): Learning Assessment (Other Learner): Other learner availableno Pressure Injury/TB/Substance: Pressure Injury: Pressure Injury Present on Admissionno Do you have a coughyes... Has your cough lasted longer than 2 weeksno Substance Use Current or Former Historynever: Cigarette/Tobacco, e-Cigarette/Vaping, Alcohol, Street Drugs Admission Risk Screen: Significant IndicatorsComplete CAGE: CAGE: Is this an injured patient at a Trauma Center ([facility]/[place]): no Electronic Signatures: Debra Barger (CARLOS) (Signed 01-Apr-2020 11:30) Authored: Preferred Language, Advanced Directives, Family Violence Adult, Learning Assessment (Patient), Learning Assessment (Other Learner), Pressure Injury/TB/Substance, Pressure Injury, CAGE Last Updated: 01-Apr-2020 11:30 by Debra Barger (CARLOS) Normal [facility] TROPONIN Ion 04-01-2020 Troponin I.cardiac [Mass/Vol] ng/mL Normal 0.00 - 0.03 [facility] Comment on above: Result Comment: LESS THAN [...] is performed using different testing methodology at [facility] than at other [facility] hospitals. Direct result comparisons should only be made within the same method. Performed By: #### T ROP2 #### [address] [address] Triage - EDon 04-01-2020 Triage - ED [...] Accompanied By: self Language: Spoken Language Preferred: [place] Islander CHIEF COMPLAINT ANA HUERTA is a Female [...] 01-Apr-2020 11:30 by Debra Barger (RN) Normal [facility] APTTon 03-25-2020 aPTT Coag (Bld) [Time] 24 s Low 25 - 35 [facility] Comment on above: Result Comment: THE APTT IS NO LONGER USED FOR MONITORING UNFRACTIONATED HEPARIN THERAPY. FOR MONITORING HEPARIN THERAPY, USE THE HEPARIN ASSAY. Performed By: #### A PTT ####[address] [place] [address] BASIC METABOLIC PANELon 12-2 Anion gap [Moles/Vol] 9 mmol/L Low 10 - 20 [facility] Comment on above: Performed By: #### C 1ESQ #### [facility] [address] [place], [place] [phone] Calcium [Mass/Vol] 8.5 mg/dL Low 8.6 - 10.3 [facility] Comment on above: Performed By: #### C 1ESQ #### [facility] [address] [place], [place] [phone] Chloride [Moles/Vol] 103 mmol/L Normal 98 - 107 [facility] Comment on above: Performed By: #### C 1ESQ #### [facility] [address] [place], [place] [phone] Creatinine [Mass/Vol] 0.56 mg/dL Normal 0.50 - 1.05 [facility] Comment on above: Performed By: #### C 1ESQ #### [facility] [address] [place], [place] [id number] GFR- AM. >60 Normal >60 [facility] Comment on above: Result Comment: CALC ULATIONS OF ESTIMATED GFR ARE PERFORMED USING THE MDRD STUDY EQUATION FOR THE IDMS-TRACEABLE CREATININE METHODS. CLIN CHEM 2007;53:766-72 Performed By: #### C 1ESQ #### [facility] [address] [place], [place] [id number] GFR-NON AM. >60 Normal >60 [facility] Comment on above: Performed By: #### C 1ESQ #### [facility] [address] [place], [place] [phone] Glucose [Mass/Vol] 117 mg/dL High 74 - 99 [facility] Comment on above: Performed By: #### C 1ESQ #### [facility] [address] [place], [place] [id number] HCO3 (Bld) [Moles/Vol] 24 mmol/L Normal 21 - 32 [facility] Comment on above: Performed By: #### C 1ESQ #### [facility] [address] [place], [place] [phone] Potassium [Moles/Vol] 3.9 mmol/L Normal 3.5 - 5.3 [facility] Comment on above: Performed By: #### C 1ESQ #### [facility] [address] [place], [place] [phone] Sodium [Moles/Vol] 132 mmol/L Low 136 - 145 [facility] Comment on above: Performed By: #### C 1ESQ #### [facility] [address] [place], [place] [phone] Urea nitrogen [Mass/Vol] 10 mg/dL Normal 6 - 23 [facility] Comment on above: Performed By: #### C 1ESQ #### [facility] [address] [place], [place] [phone] CBC AND DIFFERENTIALon 03-25 DIFFERENTIAL SEE MANUAL DIFF Normal [facility] Comment on above: Performed By: #### Ian 1ESQ #### [facility] [address] [place], [place] [phone] Erythrocyte distribution width (RBC) [Ratio] 13.7 % Normal 11.5 - 14.5 [facility] Comment on above: Performed By: #### Ian 1ESQ #### [facility] [address] [place], [place] [phone] Hematocrit (Bld) [Volume fraction] 35.9 % Low 36.0 - 46.0 [facility] Comment on above: Performed By: #### Ian 1ESQ #### [facility] [address] [place], [place] [id number] Hemoglobin (Bld) [Mass/Vol] 12.2 g/dL Normal 12.0 - 16.0 [facility] Comment on above: Performed By: #### Ian 1ESQ #### [facility] [address] [place], [place] [phone] MCHC (RBC) [Mass/Vol] 34.0 g/dL Normal 32.0 - 36.0 [facility] Comment on above: Performed By: #### Ian 1ESQ #### [facility] [address] [place], [place] [phone] MCV (RBC) [Entitic vol] 97 fL Normal 80 - [address] [facility] Comment on above: Performed By: #### Ian 1ESQ #### [facility] [address] [place], [place] [phone] NUCLEATED RBC 0.1 /100 WBC Normal [facility] Comment on above: Performed By: #### C 1ESQ #### [facility] [address] [place], [place] [phone] Platelets (Bld) [#/Vol] 275 10*3/uL Normal 150 - 450 [facility] Comment on above: Performed By: #### C 1ESQ #### [facility] [address] [place], [place] [phone] RBC 3.69 x10E12/L Low 4.00 - 5.20 [facility] Comment on above: Performed By: #### C 1ESQ #### [facility] [address] [place], [place] [phone] WBC (Bld) [#/Vol] 5.2 10*3/uL Normal 4.4 - 11.3 [facility] Comment on above: Performed By: #### C 1ESQ #### [facility] [address] [place], [place] [phone] CHEST 1 VIEWon 03-25-2020 CHEST 1 VIEW Patient Name: ANA HUERTA STUDY: CHEST 1 VIEW; 03/25/2020 2:43 pm INDICATION: Chest Pain. COMPARISON: None. ACCESSION NUMBER(S): [id number] ORDERING CLINICIAN: DESTINY FOSTER FINDINGS: A single [...] Electronically signed by: SAJI TAO MD Normal [facility] CT ANGIO CHEST FOR PEon 03-07 CT ANGIO CHEST FOR PE Patient Name: ANA HUERTA STUDY: CT ANGIO CHEST FOR PE; 03/25/2020 5:30 pm INDICATION: cp. COMPARISON: None. ACCESSION NUMBER(S): [id number] ORDERING CLINICIAN: DESTINY FOSTER TECHNIQUE: Helical data [...] Electronically signed by: RENY MOSLEY MD Normal [facility] D-DIMER, NON VTEon 0 D-DIMER, NON VTE 2482 ng/mL FEU Abnormal = 500 [facility] Comment on above: Result Comment: THE D-DIMER ASSAY IS REPORTED IN NG/ML FIBRINOGEN EQUIVALENT UNITS (FEU). THE RESULTS OF THIS ASSAY SHOULD NOT BE USED FOR THE EXCLUSION OF DEEP VEIN THROMBOSIS AND/OR PULMONARY EMBOLISM. Performed By: #### C 1ESQ #### [facility] [place], [place] [phone] MANUAL DIFFERENTIALon 12-20- 2020 % BAND NEUTROPHIL 1.0 % Normal 0.0 - 5.0 [facility] Comment on above: Performed By: #### M DIFF ####[address] [address] % BASOPHIL 0.0 % Normal 0.0 - 2.0 [facility] Comment on above: Performed By: #### M DIFF ####[address] [address] % EOSINOPHIL 0.0 % Normal 0.0 - 6.0 [facility] Comment on above: Performed By: #### M DIFF ####[address] [address] % LYMPHOCYTE 6.0 % Normal 13.0 - 44.0 [facility] Comment on above: Performed By: #### M DIFF ####[address] [address] % MONOCYTE 1.0 % Normal 2.0 - 10.0 [facility] Comment on above: Performed By: #### M DIFF ####[address] [address] % SEG NEUTROPHIL 92.0 % Normal 40.0 - 80.0 [facility] Comment on above: Result Comment: Perc ent differential counts (%) should be interpreted in the context of the absolute cell counts (cells/L). Performed By: #### M DIFF ####[address] [address] ANC 4.83 x10E9/L Normal 1.20 - 7.70 [facility] Comment on above: Performed By: #### M DIFF ####[address] [address] BAND NEUTROPHIL 0.05 x10E9/L Normal 0.00 - 0.70 [facility] Comment on above: Performed By: #### M DIFF ####[address] [address] BASOPHIL 0.00 x10E9/L Normal 0.00 - 0.10 [facility] Comment on above: Performed By: #### M DIFF ####[address] [address] EOSINOPHIL 0.00 x10E9/L Normal 0.00 - 0.70 [facility] Comment on above: Performed By: #### M DIFF ####[address] [address] LYMPHOCYTE 0.31 x10E9/L Low 1.20 - 4.80 [facility] Comment on above: Performed By: #### M DIFF ####[address] [address] MONOCYTE 0.05 x10E9/L Low 0.10 - 1.00 [facility] Comment on above: Performed By: #### M DIFF ####[place] [address] SEG NEUTROPHIL 4.78 x10E9/L Normal 1.20 - 7.00 [facility] Comment on above: Performed By: #### M DIFF ####[address] [address] PT/INRon 03-25-2020 PT Coag (PPP) [Time] 11.6 s Normal 10.1 - 13.3 [facility] Comment on above: Performed By: #### P TINR ####[address] [address] PT, INR 1.0 Normal 0.9 - 1.1 [facility] Comment on above: Performed By: #### P TINR ####[address] [address] Provider Note - ED v2on 03-07 Provider [...] had to be intubated and was at [facility]. 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: Is : no(1) Is : no(1) REVIEW [...] SIGNS: T PRBP SpO2O2(LPM) %FiO2 Method 25-Mar-2020 18:14:00-2931804/72 97 room air, no respiratory support 25-Mar-2020 17:47:00-6104649/ 97 room air, no respiratory support 25-Mar-2020 16:58:00-781978/ 96 room air, no respiratory support 25-Mar-2020 16:12:00-539343 96 room air, no respiratory support 25-Mar-2020 15:14:00-790075/64 97 room air, no respiratory support 25-Mar-2020 14:37:00-6420847 97 room air, no respiratory support 25-Mar-2020 13:59:00-154657706/ 97 room air, no respiratory support 25-Mar-2020 13:35:00-632138621/ 97 room air, no respiratory support EKG INTERPRETATION #1: Impression: Normal sinus rhythm at 91, left axis deviation, no acute ST depressions. Minimal ST elevation in lead II, with OH depression in that lead. Normal T waves. Normal QRS, QT and OH intervals. PHYSICAL EXAM Image Comments: Physical Exam: Appearance: Alert, oriented , cooperative, in no acute distress. Well nourished & well hydrated. Skin: Intact, dry skin, no lesions, rash, petechiae or purpura. Eyes: PERRLA, EOMs intact, Conjunctiva pink w (more content not included)... Normal [facility] RED CELL MORPHOLOGYon 2019 RBC morphology finding Nom (Bld) NORMAL Normal [facility] Comment on above: Performed By: #### M ORP2 #### [place] [address] Risk Screen - Adult Emergenc yon 03-25-2020 [...] Learning Preferencesverbal instruction Cultural Considerationsnone Developmental Considerationsnone Anabaptist Considerationsnone Learning Assessment (Other Learner): Learning Assessment (Other Learner): Other learner availableno Pressure Injury/TB/Substance: Pressure Injury: Do you have a coughno Substance Use Current or Former HistoryYES: Alcohol Alcohol Useoccasionally Admission Risk Screen: Significant IndicatorsComplete CAGE: CAGE: Is this an injured patient at a Trauma Center ([facility]/[place]): no Electronic Signatures: Maia Austin (CARLOS) (Signed 25-Mar-2020 14:12) Authored: Preferred Language, Advanced Directives, Family Violence Adult, Learning Assessment (Patient), Learning Assessment (Other Learner), Pressure Injury/TB/Substance, Pressure Injury, CAGE Last Updated: 25-Mar-2020 14:12 by Maia Austin (RN) Normal [facility] TROPONIN Ion 03-25-2020 TROPONIN I [facility] Comment on above: Order Comment: TEST TROPONIN [...] is performed using different testing methodology at [facility] than at other [facility]. Direct result comparisons should only be made within the same method. Performed By: #### C 1ESQ #### [facility] [address] [place] [id number] Troponin I.cardiac [Mass/Vol] ng/mL Normal 0.00 - 0.03 [facility] Comment on above: Result Comment: LESS THAN [...] is performed using different testing methodology at [facility] than at other [facility]. Direct result comparisons should only be made within the same method. Performed By: #### T ROP2 #### [facility] [address] [place] [address] Troponin I.cardiac [Mass/Vol] ng/mL Normal 0.00 - 0.03 [facility] Comment on above: Result Comment: LESS THAN [...] is performed using different testing methodology at [facility] than at other [facility]. Direct result comparisons should only be made within the same method. Performed By: #### C 1ESQ #### [facility] [address] [place], [place] [id number] Triage - EDon 03-25-2020 Triage - ED [...] Accompanied By: self Language: Spoken Language Preferred: [place] Islander Reading Language Preferred: [place] Islander Present on Arrival: Device Present on Arrival [...] obeys commands Best Verbal Response: (V5) oriented Eden Score: 15 Allergies: yes Patient has homicidal [...] 25-Mar-2020 14:08 by Maia Austin (CARLOS) Normal [facility] Basic Metabolic Panelon 11-2 Anion gap [Moles/Vol] 10 mmol/L 10 - 2 0 mmol/L [facility] Calcium [Mass/Vol] 8.5 mg/dL 8.4 - 10. 2 mg/dL [facility] Chloride [Moles/Vol] 106 mmol/L 98 - 10 8 mmol/L [facility] Creatinine [Mass/Vol] 0.42 mg/dL 0.40 - 1.10 [facility] GFR/1.73 sq M predicted among non-blacks MDRD (S/P/Bld) [Vol rate/Area] The eGFR should be used for monitoring renal function only and not for medication dosing. [facility] GFR/1.73 sq M.predicted CKD-EPI (S/P/Bld) [Vol rate/Area] 119 >=60 mL/min/1.73 m2 [facility] Glucose [Mass/Vol] 160 mg/dL High 65 - 99 mg/dL [facility] HCO3 [Moles/Vol] 23 mmol/L 21 - 32 mmol/L [facility] Interpretation and review of laboratory results Abnormal [facility] Potassium [Moles/Vol] 4.6 mmol/L 3.5 - 5.1 mmol/L [facility] Sodium [Moles/Vol] 134 mmol/L Low 135 - 145 mmol/L [facility] Urea nitrogen [Mass/Vol] 19 mg/dL 8 - 25 mg/dL [facility] Urea nitrogen/Creatinine [Mass ratio] 45.2 mg/mg High [facility] CBCon 02-26-2020 Erythrocyte distribution width (RBC) [Entitic vol] 13.9 % 11.6 - 14.8 % [facility] Hematocrit (Bld) [Volume fraction] 31.9 % Low 36 - 46 % [facility] Hemoglobin (Bld) [Mass/Vol] 10.7 g/dL Low 12 - 16 g/dL [facility] Interpretation and review of laboratory results Abnormal [facility] MCH (RBC) [Entitic mass] 32.4 pg 26 - 34 pg [facility] MCHC (RBC) [Mass/Vol] 33.5 g/dL 31 - 37 g/dL [facility] MCV (RBC) [Entitic vol] 96.7 fL 80 - 100 fL [facility] Nucleated RBC (Bld) [#/Vol] 0.00 10*3/uL [facility] Nucleated RBC/100 WBC (Bld) [Ratio] 0.0 % [facility] Platelet mean volume (Bld) [Entitic vol] 9.1 fL Low 9.4 - 12.4 fL [facility] Platelets (Bld) [#/Vol] 372 10*3/uL [facility] RBC (Bld) [#/Vol] 3.30 10*6/uL Low [facility] WBC (Bld) [#/Vol] 7.54 10*3/uL [facility] Arterial Blood Gason 020 Draw Attempts = 1 [facility] Comment on above: Order Comment: SPECI MEN BLOOD GAS ARTERIAL Performed By: #### H ABG #### [facility] CLIA # [id number] [address] [place] [address] 38205 Draw Site Left Radial [facility] Comment on above: Order Comment: SPECI MEN BLOOD GAS ARTERIAL Performed By: #### H ABG #### [facility] CLIA # [id number] [address] [place] [address] 50879 FIO2 = 60 Normal [facility] Comment on above: Order Comment: SPECI MEN BLOOD GAS ARTERIAL Performed By: #### H ABG #### [facility] CLIA # [id number] [address] [place] [address] 32754 Modified Caesar Positive [facility] Comment on above: Order Comment: SPECI MEN BLOOD GAS ARTERIAL Performed By: #### H ABG #### [facility] CLIA # [id number] [address] [place] [address] 41318 Pressure Held x5 [facility] Comment on above: Order Comment: SPECI MEN BLOOD GAS ARTERIAL Performed By: #### H ABG #### [facility] CLIA # [id number] [address] [place] [address] 64623 Sales Representative Consultant dj [facility] Comment on above: Order Comment: SPECI MEN BLOOD GAS ARTERIAL Performed By: #### H ABG #### [facility] CLIA # [id number] [address] [place] [address] 04423 Base Excess = -3.5 Normal -10.0-10.0 [facility] Comment on above: Order Comment: SPECI MEN BLOOD GAS ARTERIAL Performed By: #### H ABG #### [facility] CLIA # [id number] [address] [place] [address] 34904 HCO3 (Bld) [Moles/Vol] 20.2 mmol/L Low 21.0-28.0 H [facility] Comment on above: Order Comment: SPECI MEN BLOOD GAS ARTERIAL Performed By: #### H ABG #### [facility] CLIA # [id number] [address] [place] [address] Oxygen (Bld) [Partial pressure] 280 mm[Hg] High 83-108 [facility] Comment on above: Order Comment: SPECI MEN BLOOD GAS ARTERIAL Performed By: #### H ABG #### [facility] CLIA # [id number] [address] [place] [address] Oxygen saturation in Blood 100 % High 95.0-99.0 [facility] Comment on above: Order Comment: SPECI MEN BLOOD GAS ARTERIAL Performed By: #### H ABG #### [facility] CLIA # [id number] [address] [place] [address] PCO2 = 34 Low 35-48 [facility] Comment on above: Order Comment: SPECI MEN BLOOD GAS ARTERIAL Performed By: #### H ABG #### [facility] CLIA # [id number] [address] [place] [address] pH (Bld) 7.39 [pH] Normal 7.35-7.45 [facility] Comment on above: Order Comment: SPECI MEN BLOOD GAS ARTERIAL Performed By: #### H ABG #### [facility] CLIA # [id number] [address] [place] [address] Total CO2 = 21.2 Low 22.0-29.0 [facility] Comment on above: Order Comment: SPECI MEN BLOOD GAS ARTERIAL Performed By: #### H ABG #### [facility] CLIA # [id number] [address] [place] [address] Hematoma Present No [facility] Comment on above: Order Comment: SPECI MEN BLOOD GAS ARTERIAL Performed By: #### H ABG #### [facility] CLIA # [id number] [address] [place] [address] Mode N/A Normal [facility] Comment on above: Order Comment: SPECI MEN BLOOD GAS ARTERIAL Performed By: #### H ABG #### [facility] CLIA # [id number] [address] [place] [address] CBC WITH AUTO DIFFERENTIALon 02-25-2020 Basophils (Bld) [#/Vol] 0.00 10*3/uL [facility] Basophils/100 WBC (Bld) 0.0 % [facility] Eosinophils (Bld) [#/Vol] 0.00 10*3/uL [facility] Eosin[facility] WBC (Bld) 0.0 % [facility] Erythrocyte distribution width (RBC) [Entitic vol] 13.5 % 11.6 - 14.8 % [facility] Hematocrit (Bld) [Volume fraction] 33.5 % Low 36 - 46 % [facility] Hemoglobin (Bld) [Mass/Vol] 11.1 g/dL Low 12 - 16 g/dL [facility] Immature granulocytes (Bld) [#/Vol] 0.02 10*3/uL [facility] Immature granulocytes/100 WBC (Bld) 0.60 % [facility] Comment on above: The IG parameter is the percentage of metamyelocytes, myelocytes and promyelocytes. An immature granulocyte count (IG) of 1% or more suggests the possibility of infection, an IG count of 3% is very likely related to an infection. Interpretation and review of laboratory results Abnormal [facility] Lymphocytes (Bld) [#/Vol] 0.36 10*3/uL Low [facility] Lymphocytes/100 WBC (Bld) 10.6 % [facility] MCH (RBC) [Entitic mass] 31.8 pg 26 - 34 pg [facility] MCHC (RBC) [Mass/Vol] 33.1 g/dL 31 - 37 g/dL [facility] MCV (RBC) [Entitic vol] 96.0 fL 80 - 100 fL [facility] Monocytes (Bld) [#/Vol] 0.14 10*3/uL Low [facility] Monocytes/100 WBC (Bld) 4.1 % [facility] Neutrophils (Bld) [#/Vol] 2.89 10*3/uL [facility] Neutrophils/100 WBC (Bld) 84.7 % [facility] Nucleated RBC (Bld) [#/Vol] 0.00 10*3/uL [facility] Nucleated RBC/100 WBC (Bld) [Ratio] 0.0 % [facility] Platelet mean volume (Bld) [Entitic vol] 9.1 fL Low 9.4 - 12.4 fL [facility] Platelets (Bld) [#/Vol] 333 10*3/uL [facility] RBC (Bld) [#/Vol] 3.49 10*6/uL Low [facility] WBC (Bld) [#/Vol] 3.41 10*3/uL Low [facility] CBC With Platelet and Differ entialon 02-25-2020 Bands = 1 Normal 0-5 [facility] Comment on above: Performed By: #### M DIFF, CBCX, CMP #### [facility] CLIA # [id number] [address] [place] [address] 62971 Basophils (Bld) [#/Vol] = 0.0 Normal 0.0-0.1 H [facility] Comment on above: Performed By: #### M DIFF, CBCX, CMP #### [facility] CLIA # [id number] [address] [place] [address] 24561 Basophils/100 WBC (Bld) = 0 Normal 0-1 H [facility] Comment on above: Performed By: #### M DIFF, CBCX, CMP #### [facility] CLIA # [id number] [address] [facility] [address] [place] [address] 06451 Eosinophils (Bld) [#/Vol] = 0.0 Normal 0.0-0.4 [facility] Comment on above: Performed By: #### M DIFF, CBCX, CMP #### [facility] CLIA # [id number] [address] [facility] [address] [place] [address] 66284 Eosinophils (Bld) [#/Vol] = 0 Normal 0-5 [facility] Comment on above: Performed By: #### M DIFF, CBCX, CMP #### [facility] CLIA # [id number] [address] [place] [address] 70893 Lymphocytes (Bld) [#/Vol] 0.2 10*3/uL Low 0.9-2.5 [facility] Comment on above: Performed By: #### M DIFF, CBCX, CMP #### [facility] CLIA # [id number] [address] [place] [address] 59536 Lymphocytes (Bld) [#/Vol] 6 10*3/uL Low 13-44 [facility] Comment on above: Performed By: #### M DIFF, CBCX, CMP #### [facility] CLIA # [id number] [address] [place] [address] 74196 MDIFF (Performed) PERFORMED Normal [facility] Comment on above: Performed By: #### M DIFF, CBCX, CMP #### [facility] CLIA # [id number] [address] [place] [address] 74249 Monocytes (Bld) [#/Vol] 0.2 10*3/uL Normal 0.1-1.0 [facility] Comment on above: Performed By: #### M DIFF, CBCX, CMP #### [facility] CLIA # [id number] [address] [place] [address] 90629 Monocytes (Bld) [#/Vol] 4 10*3/uL Low 5-9 H [facility] Comment on above: Performed By: #### M DIFF, CBCX, CMP #### [facility] CLIA # [id number] [address] [place] [address] 97708 Neutrophils (Bld) [#/Vol] 89 10*3/uL High 39-75 [facility] Comment on above: Performed By: #### M DIFF, CBCX, CMP #### [facility] CLIA # [id number] [address] [facility] [address] [place] [address] 00455 Neutrophils (Bld) [#/Vol] 3.7 10*3/uL Normal 2.1-6.5 [facility] Comment on above: Performed By: #### M DIFF, CBCX, CMP #### [facility] CLIA # [id number] [address] [place] [address] 45670 Erythrocyte distribution width (RBC) [Ratio] 13.2 % Normal 11.7-14.4 [facility] Comment on above: Performed By: #### M DIFF, CBCX, CMP #### [facility] CLIA # [id number] [address] [place] [address] 60492 Hematocrit (Bld) [Volume fraction] 36.1 % Low 37.0-47.0 [facility] Comment on above: Performed By: #### M DIFF, CBCX, CMP #### [facility] CLIA # [id number] [address] [place] [address] 23299 Hemoglobin (Bld) [Mass/Vol] 12.1 g/dL Normal 11.5-16.0 [facility] Comment on above: Performed By: #### M DIFF, CBCX, CMP #### [facility] CLIA # [id number] [address] [place] [address] 29148 MCH (RBC) [Entitic mass] 31.3 pg High 27.0-31.0 [facility] Comment on above: Performed By: #### M DIFF, CBCX, CMP #### [facility] CLIA # [id number] [address] [place] [address] 69391 MCHC (RBC) [Mass/Vol] 33.5 g/dL Normal 31.5-36.0 [facility] Comment on above: Performed By: #### M DIFF, CBCX, CMP #### [facility] CLIA # [id number] [address] [place] [address] 11180 MCV (RBC) [Entitic vol] 93.5 fL Normal 82.0-101.0 H [facility] Comment on above: Performed By: #### M DIFF, CBCX, CMP #### [facility] CLIA # [id number] [address] [place] [address] 85927 Platelet mean volume (Bld) [Entitic vol] 8.9 fL Normal 8.2-11.4 [facility] Comment on above: Performed By: #### M DIFF, CBCX, CMP #### [facility] CLIA # [id number] [address] [place] [address] 54061 Platelets (Bld) [#/Vol] 352 10*3/uL Normal 130.0-400.0 [facility] Comment on above: Performed By: #### M DIFF, CBCX, CMP #### [facility] CLIA # [id number] [address] [place] [address] 70244 RBC (Bld) [#/Vol] 3.86 10*6/uL Low 4.20-5.40 [facility] Comment on above: Performed By: #### M DIFF, CBCX, CMP #### [facility] CLIA # [id number] [address] [place] [address] 03835 WBC (Bld) [#/Vol] 4.1 10*3/uL Low 4.4-10.[address] [facility] Comment on above: Performed By: #### M DIFF, CBCX, CMP #### [facility] CLIA # [id number] [address] [facility] [address] [place] [address] 77027 COVID-19/INFLUENZA A,B MOLEC [facility] 02-25-2020 COVID-19/INFLUENZA A,B MOLECULAR SARS-COV-2 (LINNETTE): Not Detected INFLUENZA A (LINNETTE): Not Detected INFLUENZA B (LINNETTE): Not Detected Normal Not Detected [facility] Comment on above: Order Comment: This test [...] at the following links: For Healthcare Providers: https://www.fda.gov/media/824163/download For Patients: https://www.fda.gov/media/341600/download Performed By: #### L [id number] #### [facility] [address] Onel Szymanski M.D. [id number] COVID-19/Influenza A,B Molec aron 02-25-2020 Influenza A Not Detected Not Detected [facility] Influenza B Not Detected Not Detected [facility] Interpretation and review of laboratory results Normal [facility] SARS-CoV-2 Not Detected Not Detected [facility] This test was perfor med under the [...] the following links: For Healthcare Providers: https://www.fda.gov/med ia/521049/download For Patients: https://www.fda.gov/med ia/526804/download [facility] Calcium, Ionizedon 0 Calcium.ionized [Mass/Vol] 4.8 mg/dL 4.5 - 5.3 mg/dL [facility] Comprehensive Metabolic Pane magda 02-25-2020 Albumin [Mass/Vol] 3.1 g/dL Low 3.2 - 5.2 g/dL [facility] ALP [Catalytic activity/Vol] 41 U/L 40 - 150 U/L [facility] ALT [Catalytic activity/Vol] 62 U/L High 0 - 40 U/L [facility] Anion gap [Moles/Vol] 16 mmol/L 10 - 2 0 mmol/L [facility] AST [Catalytic activity/Vol] 56 U/L High 0 - 45 U/L [facility] Comment on above: Slightly Hemolyzed Bilirubin [Mass/Vol] 0.2 mg/dL 0 - 1.3 mg/dL [facility] Calcium [Mass/Vol] 7.6 mg/dL Low 8.4 - 10. 2 mg/dL [facility] Chloride [Moles/Vol] 103 mmol/L 98 - 10 8 mmol/L [facility] Creatinine [Mass/Vol] 0.48 mg/dL 0.40 - 1.10 [facility] GFR/1.73 sq M predicted among non-blacks MDRD (S/P/Bld) [Vol rate/Area] The eGFR should be used for monitoring renal function only and not for medication dosing. [facility] GFR/1.73 sq M.predicted CKD-EPI (S/P/Bld) [Vol rate/Area] 114 >=60 mL/min/1.73 m2 [facility] Glucose [Mass/Vol] 143 mg/dL High 65 - 99 mg/dL [facility] HCO3 [Moles/Vol] 19 mmol/L Low 21 - 32 mmol/L [facility] Interpretation and review of laboratory results Abnormal [facility] Potassium [Moles/Vol] 4.5 mmol/L 3.5 - 5.1 mmol/L [facility] Protein [Mass/Vol] 5.8 g/dL Low 6 - 8 g/dL [facility] Sodium [Moles/Vol] 133 mmol/L Low 135 - 145 mmol/L [facility] Urea nitrogen [Mass/Vol] 11 mg/dL 8 - 25 mg/dL [facility] Urea nitrogen/Creatinine [Mass ratio] 22.9 mg/mg High [facility] GFR > 60 Normal >60 [facility] Comment on above: Performed By: #### M DIFF, CBCX, CMP #### [facility] CLIA # [id number] [address] [facility] [address] [place] [address] 41754 Albumin [Mass/Vol] 2.6 g/dL Low 3.4-5.[address] [facility] Comment on above: Performed By: #### M DIFF, CBCX, CMP #### [facility] CLIA # [id number] [address] [facility] [address] [place] [address] 69092 Albumin/Globulin [Mass ratio] 0.7 {ratio} Normal [facility] Comment on above: Performed By: #### M DIFF, CBCX, CMP #### [facility] CLIA # [id number] [address] [facility] [address] [place] [address] 39488 ALP [Catalytic activity/Vol] 43 U/L Low 46-116 [facility] Comment on above: Performed By: #### M DIFF, CBCX, CMP #### [facility] CLIA # [id number] [address] [place] [address] 77836 ALT [Catalytic activity/Vol] 86 U/L High 14-59 [facility] Comment on above: Performed By: #### M DIFF, CBCX, CMP #### [facility] CLIA # [id number] [address] [place] [address] Anion gap [Moles/Vol] 13.7 mmol/L Normal [facility] Comment on above: Performed By: #### M DIFF, CBCX, CMP #### [facility] CLIA # [id number] [address] [place] [address] AST [Catalytic activity/Vol] 58 U/L High 15-37 [facility] Comment on above: Performed By: #### M DIFF, CBCX, CMP #### [facility] CLIA # [id number] [address] [place] [address] Bilirubin Ql (U) = 0.54 Normal 0.20-1.00 [facility] Comment on above: Result Comment: Use of this assay method is not recommended for patients undergoing treatment with eltrombopag due to potential for falsely elevated results. Performed By: #### M DIFF, CBCX, CMP #### [facility] CLIA # [id number] [address] [place] [address] Calcium [Mass/Vol] 7.6 mg/dL Low 8.5-10.[address] [facility] Comment on above: Performed By: #### M DIFF, CBCX, CMP #### [facility] CLIA # [id number] [address] [place] [address] 07888 Chloride [Moles/Vol] 100 mmol/L Normal 98-107 [facility] Comment on above: Performed By: #### M DIFF, CBCX, CMP #### [facility] CLIA # [id number] [address] [place] [address] 76440 CO2 [Moles/Vol] 23.1 mmol/L Normal 21.0-32.0 [facility] Comment on above: Performed By: #### M DIFF, CBCX, CMP #### [facility] CLIA # [id number] [address] [place] [address] 71591 Creatinine [Mass/Vol] 0.74 mg/dL Normal 0.55-1.02 [facility] Comment on above: Performed By: #### M DIFF, CBCX, CMP #### [facility] CLIA # [id number] [address] [place] [address] 18248 Globulin (S) [Mass/Vol] 3.5 g/dL Normal H [facility] Comment on above: Performed By: #### M DIFF, CBCX, CMP #### [facility] CLIA # [id number] [address] [place] [address] 88843 Glucose [Mass/Vol] 147 mg/dL High 70-[address] [facility] Comment on above: Performed By: #### M DIFF, CBCX, CMP #### [facility] CLIA # [id number] [address] [place] [address] 67086 NonAfrican Romanian GFR > 60 Normal >60 H [facility] Comment on above: Performed By: #### M DIFF, CBCX, CMP #### [facility] CLIA # [id number] [address] [place] [address] 43216 Osmolality [Osmolality] 269 mosm/kg Normal [facility] Comment on above: Performed By: #### M DIFF, CBCX, CMP #### [facility] CLIA # [id number] [address] [place] [address] 75653 Potassium [Moles/Vol] 3.8 mmol/L Normal 3.5-5.1 [facility] Comment on above: Performed By: #### M DIFF, CBCX, CMP #### [facility] CLIA # [id number] [address] [place] [address] 09449 Protein [Mass/Vol] 6.1 g/dL Low 6.4-8.[address] [facility] Comment on above: Performed By: #### M DIFF, CBCX, CMP #### [facility] CLIA # [id number] [address] [place] [address] 78545 Sodium [Moles/Vol] 133 mmol/L Low 136-[address] [facility] Comment on above: Performed By: #### M DIFF, CBCX, CMP #### [facility] CLIA # [id number] [address] [place] [address] Urea nitrogen [Mass/Vol] 13 mg/dL Normal 7-18 [facility] Comment on above: Performed By: #### M DIFF, CBCX, CMP #### [facility] CLIA # [id number] [address] [facility] [place] [address] Urea nitrogen/Creatinine [Mass ratio] 17.6 mg/mg Normal [facility] Comment on above: Performed By: #### M DIFF, CBCX, CMP #### [facility] CLIA # [id number] [address] [place] [address] Differential Manualon 2019 Number of Cells Counted- not reportable = 100 Normal [facility] Comment on above: Performed By: #### M DIFF, CBCX, CMP #### [facility] CLIA # [id number] [address] [place] [address] 27809 Magnesiumon 02-25-2020 Magnesium [Mass/Vol] 1.8 mg/dL 1.6 - 2 .4 mg/dL [facility] Otheron 02-25-2020 Interpretation and review of laboratory results Normal [facility] POC Glucoseon 02-25-2020 Glucose [Mass/Vol] 141 mg/dL High 65 - 99 mg/dL [facility] Interpretation and review of laboratory results Abnormal [facility] Phosphoruson 02-25-2020 Phosphate [Mass/Vol] 3.6 mg/dL 2.7 - 4 .5 mg/dL [facility] XR ABDOMEN /KUB/FLAT PLATE/1 VIEWon 02-25-2020 XR [...] Feb 25, 2020 11:56:17 AM EST Normal [facility] Comment on above: Order Comment: Injur y/Trauma [...] atelectasis. There is clear-appearing right lung base. [facility] 1. Orogastric tube along with the proximal port in the stomach with the distal tip in the distal body of the stomach. [facility]/lab Workstation ID: [id number] [facility] Interface, Rad In Fu ji Speechq - [...] of the stomach. V/lab Workstation ID: [id number] [facility] XR CHEST PA/APon 02-25-2020 XR CHEST PA/AP EXAMINATION: XR CHEST PA/AP 02/25/2020 9:42 am HISTORY: ORDERING SYSTEM PROVIDED HISTORY: intubation, TECHNOLOGIST PROVIDED HISTORY: Illness/Other Reason for exam: intubation Cancer History: u Surgery, RadiationHistory: u Encounter Type: Initial Additional signs and symptoms: ORDERING SYSTEM PROVIDED DIAGNOSIS CODES: COMPARISON: 02/25/2020 at [facility]. TECHNIQUE: An AP portable semiupright view [...] atelectatic streaks. 3. Negative appearing chest otherwise. [facility] Workstation ID: [id number] Dictated by: FELIPE KING on Sat Feb 25, 2020 10:19:36 AM EST Transcribed by: CONCEPCION JURADO on Sat Feb 25, 2020 10:21:30 AM EST Finalized by: FELIPE KING on Sat Feb 25, 2020 10:26:22 AM EST Normal [facility] Comment on above: Order Comment: Injur y/Trauma [...] Kenny Beatty Signed On: 02/25/2020 03:43 Normal [facility] XR Chest 1 Viewon 02-25-2020 EXAMINATION: XR CHES T PA/AP 02/25/2020 9:42 am HISTORY: ORDERING SYSTEM PROVIDED HISTORY: intubation, TECHNOLOGIST PROVIDED HISTORY: Illness/Other Reason for exam: intubation Cancer History: u Surgery, RadiationHistory: u Encounter Type: Initial Additional signs and symptoms: ORDERING SYSTEM PROVIDED DIAGNOSIS CODES: COMPARISON: 02/25/2020 at [facility]. TECHNIQUE: An AP portable semiupright view of the chest was obtained at 0950 hours. FINDINGS: The cardiac silhouette is satisfactory for the AP view. Trachea is midline. Endotracheal tube terminates about 3 cm above the jj. There is a bandlike area of probable atelectasis in the retrocardiac region. The remaining lung funk are clear. [facility] Interface, Rad In Fu ji Speechq - 02/25/2020 10:29 AM EST EXAMINATION: XR CHEST PA/AP 02/25/2020 9:42 am HISTORY: ORDERING SYSTEM PROVIDED HISTORY: intubation, TECHNOLOGIST PROVIDED HISTORY: Illness/Other Reason for exam: intubation Cancer History: u Surgery, RadiationHistory: u Encounter Type: Initial Additional signs and symptoms: ORDERING SYSTEM PROVIDED DIAGNOSIS CODES: COMPARISON: 02/25/2020 at [facility]. TECHNIQUE: An AP portable semiupright view [...] Negative appearing chest otherwise. [facility] Workstation ID: [id number] 1. Satisfactory endotracheal tube. 2. Bandlike linear retrocardiac density suggestive of atelectatic streaks. 3. Negative appearing chest otherwise. [facility] Workstation ID: [id number] COVID-19, MOLECULARon 2019 SARS-COV-2 RNA (ALFRED) Not Detected Normal Not Detecte d [facility] Comment on above: Result Comment: This test was performed under the FDA's Emergency Use Authorization (EUA). Testing was performed using the Rosales SARS-CoV-2 assay on the [employer] System. This test has not been approved for use in asymptomatic patients and its performance in this patient population has not been evaluated. Negative results do not rule out the presence of SARS-CoV-2/COVID-19. Fact sheets for this EUA can be found at the following links: For Healthcare Providers: https://www.fda.gov/media/743153/download For Patients: https://www.fda.gov/media/967196/download Performed By: #### L [id number] #### [facility] 13 [place] [address] Onel Szymanski M.D. [id number] COVID-19, MOLECULARon 2019 SARS-COV-2 (AppCard) Not Detected Normal Not Detected [facility] Comment on above: Result Comment: This test was performed under the FDA's Emergency Use Authorization (EUA). Testing was performed using the Simplexa SARS-CoV-2 assay (Opencare) on the LiaCapzles platform. This test has not been approved for use in asymptomatic patients and its performance in this patient population has not been evaluated. Negative results do not rule out the presence of SARS-CoV-2/COVID-19. Fact sheets for this EUA can be found at the following links: For Healthcare Providers: https://www.fda.gov/media/070739/download For Patients: https://www.fda.gov/media/495059/download Performed By: #### L [id number] #### [facility] [address] [place] [address] Onel Szymanski M.D. [id number] BASIC METABOLIC PANELon 09-2 Anion gap [Moles/Vol] 13 mmol/L Normal 10 - 20 [facility] Comment on above: Performed By: #### B MP ####[address] [address] Sodium [Moles/Vol] 127 mmol/L Low 136 - 145 [facility] Comment on above: Performed By: #### B MP ####[address] [address] Calcium [Mass/Vol] 8.5 mg/dL Low 8.6 - 10.3 [facility] Comment on above: Performed By: #### B MP ####[address] [address] Chloride [Moles/Vol] 100 mmol/L Normal 98 - 107 [facility] Comment on above: Performed By: #### B MP ####[address] [address] Creatinine [Mass/Vol] 0.59 mg/dL Normal 0.50 - 1.05 [facility] Comment on above: Performed By: #### B MP ####[address] [address] GFR- AM. >60 Normal >60 [facility] Comment on above: Result Comment: CALC ULATIONS OF ESTIMATED GFR ARE PERFORMED USING THE MDRD STUDY EQUATION FOR THE IDMS-TRACEABLE CREATININE METHODS. CLIN CHEM 2007;53:766-72 Performed By: #### B MP ####[address] [address] GFR-NON AM. >60 Normal >60 [facility] Comment on above: Performed By: #### B MP ####[place] [id number] Glucose [Mass/Vol] 97 mg/dL Normal 74 - 99 [facility] Comment on above: Performed By: #### B MP ####[place] [id number] HCO3 (Bld) [Moles/Vol] 18 mmol/L Low 21 - 32 [facility] Comment on above: Performed By: #### B MP ####[place] [address] Potassium [Moles/Vol] 3.7 mmol/L Normal 3.5 - 5.3 [facility] Comment on above: Performed By: #### B MP ####[place] [address] Urea nitrogen [Mass/Vol] 17 mg/dL Normal 6 - 23 [facility] Comment on above: Performed By: #### B MP ####[place] [id number] CBCon 01-03-2020 Erythrocyte distribution width (RBC) [Ratio] 13.6 % Normal 11.5 - 14.5 [facility] Comment on above: Performed By: #### C BC ####[place] [id number] Hematocrit (Bld) [Volume fraction] 35.6 % Low 36.0 - 46.0 [facility] Comment on above: Performed By: #### C BC ####[address] [address] Hemoglobin (Bld) [Mass/Vol] 12.1 g/dL Normal 12.0 - 16.0 [facility] Comment on above: Performed By: #### C BC ####[address] [address] MCHC (RBC) [Mass/Vol] 33.9 g/dL Normal 32.0 - 36.0 [facility] Comment on above: Performed By: #### C BC ####[address] [address] MCV (RBC) [Entitic vol] 94 fL Normal 80 - [address] [facility] Comment on above: Performed By: #### C BC ####[address] [address] Platelets (Bld) [#/Vol] 210 10*3/uL Normal 150 - 450 [facility] Comment on above: Performed By: #### C BC ####[address] [address] RBC 3.81 x10E12/L Low 4.00 - 5.20 [facility] Comment on above: Performed By: #### C BC ####[address] [address] WBC (Bld) [#/Vol] 2.7 10*3/uL Low 4.4 - 11.3 [facility] Comment on above: Performed By: #### C BC ####[address] [address] MAGNESIUMon 01-03-2020 Magnesium [Mass/Vol] 1.59 mg/dL Low 1.60 - 2.40 [facility] Comment on above: Performed By: #### M G ####[address] [address] Provider Note - ED v2on 12-06 Provider Note - ED v2 Provider Note - ED v2: Chart Review: ED NOTES ED NOTES: Patient is a 49-year-old female with history of RA, lupus who 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 97 room air, no [...] and drinkin (more content not included)... Normal [facility] Risk Screen - Adult Emergenc [...] instruction; written material Cultural Considerationsnone Developmental Considerationsnone Anabaptist Considerationsnone Other Learnersspouse Learning Assessment (Other Learner): Learning Assessment (Other Learner): Other learner availableyes... Learnerspouse Factors Influencing Readiness to Learninterest in learning Factors that Impact Ability to Learnnone Devices/Methods Used to Communicatenone Learning Preferencesverbal instruction, written material Cultural Considerationsnone Developmental Considerationsnone Anabaptist Considerationsnone Pressure Injury/TB/Substance: Pressure Injury: Do you have a coughno Admission Risk Screen: Significant IndicatorsComplete CAGE: CAGE: Is this an injured patient at a Trauma Center ([facility]/[place] a/[place]): no Electronic Signatures: Deepthi Brand (RN) (Signed 03-Jan-2020 03:56) Authored: Preferred Language, Advanced Directives, Family Violence Adult, Learning Assessment (Patient), Learning Assessment (Other Learner), Pressure Injury/TB/Substance, Pressure Injury, CAGE Last Updated: 03-Jan-2020 03:56 by Deepthi Brand (RN) [facility] Triage - EDon 01-03-2020 Triage - ED [...] By: spouse/significant other Language: Spoken Language Preferred: [place]er Reading Language Preferred: [place] 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: no gui developer was requested MDRO: History of MDRO: no [...] Updated: 03-Jan-2020 03:55 by Deepthi Brand (RN) [facility] Carpal Tunnel Injection: Car pal Tunnelon 12-29-2019 [...] the procedure well with no immediate complications [facility] XR WRIST LEFT 3+ VIEWS ([place])on [...] ThuNov 07, 2019 6:48:09 PM EDT [facility] Comment on above: Order Comment: Injur [...] ThuNov 07, 2019 6:48:06 PM EDT [facility] Comment on above: Order Comment: Injur y/Trauma or Illness?:Illness/Other How long have you had these symptoms (acute/chronic)?:Chronic Reason for exam?:bilateral wrist pain numbness and tingling no injury History of cancer?:u Surgeries, chemotherapy, or radiation?:u Type of Exam?:Initial Additional signs and symptoms?:none CH50on 12-08-2017 CH50 52 unit/mL Normal [facility] Comment on above: Result Comment: No p atient age and/or gender provided Age Male Female 1 - 30 days Not Estab. Not Estab. 31 days - 6 months >32 >20 7 months - 17 years >39 >39 >17 years >41 >41 Performed At: [address] [id number] Avila Bergman PhD Ph:[phone] Performed By: #### 1 [id number] #### REBECCA [employer] [address] [place] [address] C3on 12-05-2017 C3 Complement 81 mg/dL Normal [facility] Comment on above: Result Comment: No p atient age and/or gender provided Age Male Female 0 - 14 days 50 - 121 50 - 121 15 - 30 days 51 - 160 51 - 160 >30 days 82 - 167 82 - 167 Performed At: [address] [id number] Avila Bergman PhD Ph:[phone] Performed By: #### 2 [id number] #### REBECCA [employer] [address] [place] [address] C4on 12-05-2017 C4 Complement 10 mg/dL Normal [facility] Comment on above: Result Comment: No p atient age and/or gender provided Age Male Female 0 - 30 days 13 - 30 14 - 28 >30 days 14 - 44 14 - 44 Performed At: [address] [id number] Avila Bergman PhD Ph:[phone] Performed By: #### 2 [id number] #### REBECCA [employer] [address] [place] [address] Auto Diffon 12-04-2017 Basophils #/vol (Bld) 0.0 E3/mcL Normal 0.0-0.2 [facility] Comment on above: Order Comment: Order Added by Discern Expert. Performed By: #### 2 [id number] #### REBECCA RemHemo [address] [place] [address] Basophils/100 WBC (Bld) 0.7 % Normal 0.0-2.0 [facility] Comment on above: Order Comment: Order Added by Discern Expert. Performed By: #### 2 [id number] #### REBECCA RemHemo [address] [place] [address] Eos Absolute 0.1 E3/mcL Normal 0.0-0.7 [facility] Comment on above: Order Comment: Order Added by Discern Expert. Performed By: #### 2 [id number] #### REBECCA RemHemo [address] [place] [address] Eosinophils/100 WBC (Bld) 1.3 % Normal 0.0-11.0 [facility] Comment on above: Order Comment: Order Added by Discern Expert. Performed By: #### 2 [id number] #### REBECCA RemHemo [address] [place] [address] Lymphocytes #/vol (Bld) 0.7 E3/mcL Low 1.2-3.4 [facility] Comment on above: Order Comment: Order Added by Discern Expert. Performed By: #### 2 [id number] #### REBECCA RemHemo [address] [place] [address] Lymphocytes/100 WBC (Bld) 18.1 % Low 20.0-55.0 [facility] Comment on above: Order Comment: Order Added by Discern Expert. Performed By: #### 2 [id number] #### REBECCA RemHemo [address] [place] [address] Brooke Absolute 0.4 E3/mcL Normal 0.0-0.7 [facility] Comment on above: Order Comment: Order Added by Discern Expert. Performed By: #### 2 [id number] #### REBECCA RemHemo [address] [place] [address] Monocytes/100 WBC (Bld) 10.5 % High 0.0-10.0 [facility] Comment on above: Order Comment: Order Added by Discern Expert. Performed By: #### 2 [id number] #### REBECCA RemHemo [address] [place] [address] Neutro Absolute 2.6 E3/mcL Normal 1.4-6.5 [facility] Comment on above: Order Comment: Order Added by Discern Expert. Performed By: #### 2 [id number] #### REBECCA JoyceHemo [address] [place] [id number] Neutro Auto 69.4 % Normal 37.0-75.0 [facility] Comment on above: Order Comment: Order Added by Discern Expert. Performed By: #### 2 [id number] #### REBECCA Hogano [facility] [place] [id number] CBC w/ Auto Diffon 8 Erythrocyte distribution width Ratio (RBC) 12.9 % Normal 11.5-14.5 [facility] Comment on above: Performed By: #### 2 [id number] #### REBECCA Hogano [address] [place], [place] [id number] Hematocrit Volume Fraction (Bld) 38.9 % Normal 36.0-48.0 [facility] Comment on above: Performed By: #### 2 [id number] #### REBECCA JoyceHemo [address] [place] [address] Hemoglobin mass conc (Bld) 12.8 g/dL Normal 12.0-16.0 [facility] Comment on above: Performed By: #### 2 [id number] #### REBECCA Hogano [address] [place], [place] [id number] MCH Entitic mass (RBC) 32.2 pg High 27.0-31.0 [facility] Comment on above: Performed By: #### 2 020103 #### REBECCA JoyceHemo [facility] [place] [id number] MCHC mass conc (RBC) 33.0 g/dL Normal 33.0-37.0 [facility] Comment on above: Performed By: #### 2 754674 #### REBECCA JoyceHemo [address] [place] [address] MCV Entitic volume (RBC) 97.8 fL Normal 78.0-100.0 [facility] Comment on above: Performed By: #### 2 [id number] #### REBECCA JoyceHemo [address] [place] [address] Platelet mean volume Entitic volume (Bld) 9.4 fL Normal 7.4-11.0 [facility] Comment on above: Performed By: #### 2 [id number] #### REBECCA JoyceHemo [address] [place] [address] Platelets #/vol (Bld) 165 E3/mcL Normal 130-400 [facility] Comment on above: Performed By: #### 2 [id number] #### REBECCA JoyceHemo [address] [place] [address] RBC #/vol (Bld) 3.97 E6/mcL Normal 3.90-5.40 [facility] Comment on above: Performed By: #### 2 [id number] #### REBECCA RemHemo [address] [place] [address] WBC #/vol (Bld) 3.8 E3/mcL Normal 3.6-11.0 [facility] Comment on above: Performed By: #### 2 788702 #### REBECCA JoyceHemo [address] [place] [address] CMPon 12-04-2017 Albumin mass conc 3.7 g/dL Normal 3.2-5.0 [facility] Comment on above: Performed By: #### 2 [id number] #### REBECCA [employer] [address] [place] [address] Albumin/Globulin mass ratio 0.9 {ratio} Low 1.1-1.9 [facility] Comment on above: Performed By: #### 2 [id number] #### REBECCA [employer] [address] [place] [address] Alk Phos 56 Int._Unit/L Normal 42-121 [facility] Comment on above: Performed By: #### 2 [id number] #### REBECCA [employer] [address] [place] [address] ALT enzyme act/vol 12 Int._Unit/L Normal 10-40 [facility] Comment on above: Performed By: #### 2 [id number] #### REBECCA [employer] [address] [place] [address] AST enzyme act/vol 22 Int._Unit/L Normal 10-42 [facility] Comment on above: Performed By: #### 2 405705 #### REBECCA [employer] [address] [place] [address] Bili Total 0.5 mg/dL Normal 0.2-1.0 [facility] Comment on above: Performed By: #### 2 583750 #### REBECCA [employer] [address] [place] [address] Creatinine mass conc 0.6 mg/dL Normal 0.6-1.3 [facility] Comment on above: Performed By: #### 2 [id number] #### REBECCA [employer] [address] [place] [address] Globulin mass conc (S) 4.1 g/dL High 2.0-4.0 [facility] Comment on above: Performed By: #### 2 [id number] #### REBECCA [employer] [address] [place] [address] Protein mass conc 7.8 g/dL Normal 6.4-8.3 [facility] Comment on above: Performed By: #### 2 102604 #### REBECCA [employer] [address] [place] [address] Urea nitrogen mass conc 12 mg/dL Normal 7-18 [facility] Comment on above: Performed By: #### 2 [id number] #### REBECCA [employer] [address] [place] [address] Urea nitrogen/Creatinine mass ratio 20.0 ratio Normal 5.4-30.0 [facility] Comment on above: Performed By: #### 2 612343 #### REBECCA [employer] [address] [place] [address] Calcium mass conc 9.1 mg/dL Normal 8.4-10.2 [facility] Comment on above: Performed By: #### 2 409924 #### REBECCA [employer] [address] [place] [address] Chloride molar conc 105 mmol/L Normal 98-107 [facility] Comment on above: Performed By: #### 2 769828 #### REBECCA [employer] [address] [place] [address] CO2 molar conc 27.2 mmol/L Normal 24.0-30.0 [facility] Comment on above: Performed By: #### 2 [id number] #### REBECCA [employer] [address] [place] [address] Glucose mass conc 86 mg/dL Normal 70-99 [facility] Comment on above: Performed By: #### 2 613411 #### REBECCA [employer] [address] [place] [address] Potassium molar conc 3.7 mmol/L Normal 3.5-5.1 [facility] Comment on above: Performed By: #### 2 574728 #### REBECCA [employer] [address] [place] [address] Sodium molar conc 138 mmol/L Normal 136-145 [facility] Comment on above: Performed By: #### 2 921752 #### REBECCA [employer] [address] [place] [address] CRPon 12-04-2017 CRP mass conc mg/L Normal 0.00-0.75 [facility] Comment on above: Performed By: #### 2 673503 #### REBECCA Chowdary [facility] [place] [address] eGFRon 12-04-2017 GFR/1.73 sq M predicted among non-blacks MDRD vol rate/area (S/P/Bld) mL/min/{1.73_m2} Normal [facility] Comment on above: Order Comment: Order added by Discern Expert. Performed By: #### 1 [id number] #### REBECCA Chowdary [address] [place] [address] Vital Signs Date Time Vital Sign Value Performing Clinician Facility 09-26-2024 10: Body height 161.3 cm Roosevelt Carter MD Work Phone: [facility] 09-26-2024 10:040 Body mass index (BMI) [Ratio] 26.36 kg/m2 Roosevelt Carter MD Work Phone: [facility] 09-26-2024 10: Body weight 68.58 kg Roosevelt Carter MD Work Phone: [facility] 09-26-2024 10:24040 Diastolic blood pressure 64 mm[Hg] Roosevelt Carter MD Work Phone: [phone])[phone] [place] [address] 09-26-2024 10:24-0400 Heart rate 76 /min Roosevelt Carter MD Work Phone: [facility] 09-26-2024 10:24-0400 SaO2% (BldA) [Mass fraction] 97 % Roosevelt Carter MD Work Phone: [facility] 09-26-2024 10:24-0400 Systolic blood pressure 118 mm[Hg] Roosevelt Carter MD Work Phone: 6(866)085-168099 [place] [address] 09-30-2023 15:20-0400 Body height 161.3 cm [facility] 09-30-2023 15:20-0400 Body mass index (BMI) [Ratio] 25.62 kg/m2 [facility] 09-30-2023 15:20-0400 Body weight 66.67 kg [facility] 09-28-2023 09:40-0400 Body height 161.3 cm Roosevelt Carter MD Work Phone: 0([phone] [address] 09-28-2023 09:40-0400 Body mass index (BMI) [Ratio] 25.63 kg/m2 Roosevelt Carter MD Work Phone: 1(119)299-823026 [address] 09-28-2023 09:40-0400 Body weight 66.68 kg Roosevelt Carter MD Work Phone: 1(081)[phone] [place] [address] 09-28-2023 09:40-0400 Diastolic blood pressure 74 mm[Hg] Roosevelt Carter MD Work Phone: 0(004)[phone] [place] [address] 09-28-2023 09:40-0400 Heart rate 72 /min Roosevelt Carter MD Work Phone: [facility] 09-28-2023 09:40-0400 SaO2% (BldA) [Mass fraction] 98 % Roosevelt Carter MD Work Phone: 7(405)434-920099 [place] [address] 09-28-2023 09:40-0400 Systolic blood pressure 118 mm[Hg] Roosevelt Carter MD Work Phone: [facility] 11-03-2022 13:50-0400 Body height 161.3 cm Roosevelt Carter MD Work Phone: [facility] 11-03-2022 13:50-0400 Body mass index (BMI) [Ratio] 24.48 kg/m2 Roosevelt Carter MD Work Phone: [facility] 11-03-2022 13:50-0400 Body weight 63.69 kg Roosevelt Carter MD Work Phone: [facility] 11-03-2022 13:50-0400 Diastolic blood pressure 64 mm[Hg] Roosevelt Carter MD Work Phone: [facility] 11-03-2022 13:50-0400 Heart rate 74 /min Roosevelt Carter MD Work Phone: [facility] 11-03-2022 13:50-0400 SaO2% (BldA) [Mass fraction] 99 % Roosevelt Carter MD Work Phone: 2(768)203-291899 [place] [address] 11-03-2022 13:50-0400 Systolic blood pressure 112 mm[Hg] Roosevelt Carter MD Work Phone: [facility] 10-02-2022 11:33-0400 Body height 161.3 cm Roosevelt Carter MD Work Phone: [facility] 10-02-2022 11:33-0400 Body mass index (BMI) [Ratio] 24.34 kg/m2 Roosevelt Carter MD Work Phone: [facility] 10-02-2022 11:33-0400 Body weight 63.32 kg Roosevelt Carter MD Work Phone: [facility] 10-02-2022 11:33-0400 Diastolic blood pressure 64 mm[Hg] Roosevelt Carter MD Work Phone: [facility] 10-02-2022 11:33-0400 Heart rate 77 /min Roosevelt Carter MD Work Phone: [facility] 10-02-2022 11:33-0400 SaO2% (BldA) [Mass fraction] 97 % Roosevelt Carter MD Work Phone: [facility] 10-02-2022 11:33-0400 Systolic blood pressure 112 mm[Hg] Roosevelt Carter MD Work Phone: [facility] 01-03-2022 11:13-0400 Body height 161.29 cm Roosevelt Carter Work Phone: [employer] [facility] Work Phone: 01-03-2022 11:13-0400 Body mass index (BMI) [Ratio] 22.5 kg/m2 Roosevelt Carter Work Phone: [employer] [facility] Work Phone: 01-03-2022 11:13-0400 Body surface area Derived from formula 1.61 m2 Roosevelt Carter Work Phone: [employer] [facility] Work Phone: 01-03-2022 11:13-0400 Body temperature 101.1 [degF] Roosevelt Carter Work Phone: [employer] [facility] Work Phone: 01-03-2022 11:13-0400 Body weight 58.54 kg Roosevelt Carter Work Phone: [employer] [facility] Work Phone: 01-03-2022 11:13-0400 Diastolic blood pressure 68 mm[Hg] Roosevelt Carter Work Phone: [employer] [facility] Work Phone: 01-03-2022 11:13-0400 Heart rate 105 /min Roosevelt Carter Work Phone: [employer] [facility] Work Phone: 01-03-2022 11:13-0400 SaO2% (BldA) [Mass fraction] 98 % Roosevelt Carter Work Phone: [facility] Work Phone: 01-03-2022 11:13-0400 Systolic blood pressure 126 mm[Hg] Roosevelt Carter Work Phone: [facility] Work Phone: 10-03-2021 08:38-0400 Body height 161.29 cm Roosevelt Carter Work Phone: [facility] Work Phone: 10-03-2021 08:38-0400 Body mass index (BMI) [Ratio] 23.44 kg/m2 Roosevelt Carter Work Phone: [facility] Work Phone: 10-03-2021 08:38-0400 Body surface area Derived from formula 1.64 m2 Roosevelt Carter Work Phone: [facility] Work Phone: 10-03-2021 08:38-0400 Body weight 60.98 kg Roosevelt Carter Work Phone: [facility] [facility] Work Phone: 10-03-2021 08:38-0400 Diastolic blood pressure 68 mm[Hg] Roosevelt Carter Work Phone: [facility] Work Phone: 10-03-2021 08:38-0400 Heart rate 67 /min Roosevelt Carter Work Phone: [facility] Work Phone: 10-03-2021 08:38-0400 SaO2% (BldA) [Mass fraction] 98 % Roosevelt Carter Work Phone: [facility] Work Phone: 10-03-2021 08:38-0400 Systolic blood pressure 110 mm[Hg] Roosevelt Carter Work Phone: [facility] Work Phone: 08-31-2020 10:59-0400 Body height 161.29 cm Roosevelt Carter Work Phone: [facility] Work Phone: 08-31-2020 10:59-0400 Body mass index (BMI) [Ratio] 25.82 kg/m2 Roosevelt Carter Work Phone: [facility] Work Phone: 08-31-2020 10:59-0400 Body surface area Derived from formula 1.71 m2 Roosevelt Carter Work Phone: [facility] Work Phone: 08-31-2020 10:59-0400 Body temperature 97.5 [degF] Roosevelt Carter Work Phone: [facility] Work Phone: 08-31-2020 10:59-0400 Body weight 67.16 kg Roosevelt Carter Work Phone: [facility] Work Phone: 08-31-2020 10:59-0400 Diastolic blood pressure 64 mm[Hg] Roosevelt Carter Work Phone: [facility] Work Phone: 08-31-2020 10:59-0400 Heart rate 100 /min Roosevelt Carter Work Phone: [facility] Work Phone: 08-31-2020 10:59-0400 SaO2% (BldA) [Mass fraction] 96 % Roosevelt Carter Work Phone: [facility] Work Phone: 08-31-2020 10:59-0400 Systolic blood pressure 112 mm[Hg] Roosevelt Carter Work Phone: [facility] Work Phone: 02-26-2020 12:00-0500 Body Temperature 97.9 [degF] Quinton Jorge [facility] 02-26-2020 12:00-0500 BP Diastolic 69 mm[Hg] [facility] 02-26-2020 12:00-0500 BP Systolic 114 mm[Hg] [facility] 02-26-2020 12:00-0500 Pulse (Heart Rate) 93 /min [facility] 02-26-2020 12:00-0500 Pulse Oximetry 96 % Quinton Jorge [facility] 02-26-2020 12:00-0500 Respiratory Rate 17 /min Quinton Jorge [facility] 02-25-2020 09:45-0500 BMI (Body Mass Index) 24.96 kg/m2 [facility] 02-25-2020 09:45-0500 Body weight 61.9 kg Quinton Jorge [facility] 02-25-2020 09:45-0500 Height 157.5 cm [facility] [facility] 09:31-0500 Pulse (Heart Rate) 105 /min Evelyn Suarez [facility] 2020 09:31-0500 Pulse Oximetry 100 % Evelyn Suarez [facility] 2020 09:31-0500 Respiratory Rate 18 /min Evelyn Suarez [facility] 2020 09:14-0500 BP Diastolic 76 mm[Hg] Evelyn Suarez [facility] 2020 09:14-0500 BP Systolic 116 mm[Hg] Evelyn Suarez [facility] 2020 07:41-0500 BMI (Body Mass Index) 23.08 kg/m2 Evelyn Suarez [facility] 2020 07:41-0500 Body Temperature 97.9 [degF] Evelyn Suarez [facility] 2020 07:41-0500 Body weight 59.1 kg Evelyn Suarez [facility] 2020 07:41-0500 Height 160 cm Evelyn Suarez [facility] 11-07-2019 14:55-0400 BMI (Body Mass Index) 25.15 kg/m2 [facility] 11-07-2019 14:55-0400 Body weight 64.[address] [facility] 11-07-2019 14:55-0400 Height 160 cm [facility] En[facility]ters Encounter Date Encounter Type Care Provider Facility Start: 09-26-2024 End: 09-26-2024 Patient encounter status Roosevelt Carter MD Work Phone: [facility] Work Phone: Start: 09-26-2024 End: 09-26-2024 Periodic preventive med est patient 40-64yrs Roosevelt Carter MD Work Phone: [facility] Comment on above: Routine general medi timmy examination at a health care facility (Primary Dx); Systemic lupus erythematosus, unspecified SLE type, unspecified organ involvement status (Multi); Rheumatoid arthritis, involving unspecified site, unspecified whether rheumatoid factor present (Multi); Encounter for screening for malignant neoplasm of colon; Motion sickness, initial encounter Start: 09-26-2024 End: 09-26-2024 ambulatory [facility] Start: 09-26-2024 End: 09-26-2024 Encounter for general adult medical examination without abnormal findings [facility] Start: 08-02-2024 End: 08-02-2024 ambulatory [facility] Facility:[facility] Start: 05-13-2024 End: 05-13-2024 ambulatory [facility] Facility:[facility] Start: 04-11-2024 End: 04-11-2024 ambulatory [facility] Facility:[facility] Start: 03-15-2024 End: 03-15-2024 ambulatory Ramon Dumont Facility:[facility] Start: 02-17-2024 End: 02-17-2024 ambulatory [facility] Facility:[facility] Start: 02-01-2024 End: 02-01-2024 ambulatory [facility] Start: 01-07-2024 End: 01-07-2024 ambulatory [facility] Facility:[facility] Start: 11-24-2023 End: 11-24-2023 ambulatory Roosevelt Lavernechava Facility:[facility] Start: 11-13-2023 End: 11-13-2023 ambulatory ROOSEVELT Watt [facility] Start: 09-30-2023 End: 09-30-2023 ambulatory ROOSEVELT Watt [facility] Start: 09-30-2023 End: 09-30-2023 Subsequent hospital visit by physician Alhaji Ware [facility] Comment on above: Encounter for screen ing mammogram for breast cancer Start: 09-28-2023 End: 09-28-2023 ambulatory ROOSEVELT Watt [facility] Start: 09-28-2023 End: 09-28-2023 Encounter for general adult medical examination without abnormal findings ROOSEVELT T [facility] Start: 09-28-2023 End: 09-28-2023 Patient encounter status Roosevelt Carter MD Work Phone: [facility] Work Phone: Start: 09-28-2023 End: 09-28-2023 Periodic preventive med est patient 40-64yrs Roosevelt Carter MD Work Phone: [facility] Comment on above: Routine general medi timmy examination at a health care facility (Primary Dx); Encounter for screening mammogram for breast cancer Start: 09-03-2023 End: 09-03-2023 ambulatory Milady Zambrano Facility:[facility] Start: 07-15-2023 End: 07-15-2023 ambulatory [facility] Work Phone: Start: 07-15-2023 End: 07-15-2023 [facility] Work [facility] Start: 06-23-2023 End: 06-23-2023 ambulatory [facility] Work Phone: Start: 06-23-2023 End: 06-23-2023 Patient encounter procedure [facility] Work Phone: Start: 04-22-2023 End: 04-22-2023 ambulatory [facility] Work Phone: Start: 04-22-2023 End: 04-22-2023 Patient encounter procedure [facility] Work Phone: Start: 03-19-2023 End: 03-19-2023 ambulatory [facility] Work Phone: Start: 03-19-2023 End: 03-19-2023 Patient encounter procedure [facility] Work Phone: Start: 12-31-2022 End: 12-31-2022 ambulatory [facility] Work Phone: Start: 12-31-2022 End: 12-31-2022 Patient encounter procedure [facility] Work Phone: Start: 11-03-2022 End: 11-03-2022 Patient encounter status Roosevelt Carter MD Work Phone: [facility] Work Phone: Start: 11-03-2022 End: 11-03-2022 Periodic preventive med est patient 40-64yrs Roosevelt Carter MD Work Phone: [facility] Comment on above: Routine general medi timmy examination at a health care facility (Primary Dx) Start: 10-02-2022 End: 10-02-2022 Office outpatient visit 15 minutes Roosevelt Carter MD Work Phone: [facility] Comment on above: Hordeolum externum o f left upper eyelid (Primary Dx) Start: 09-30-2022 End: 09-30-2022 ambulatory [facility] Work Phone: Start: 09-30-2022 End: 09-30-2022 Patient encounter procedure [facility] Work Phone: Start: 08-05-2022 End: 08-05-2022 ambulatory [facility] Work Phone: Start: 08-05-2022 End: 08-05-2022 Patient encounter procedure [facility] Start: 06-03-2022 End: 06-03-2022 ambulatory [facility] Work Phone: Start: 06-03-2022 End: 06-03-2022 Patient encounter procedure [facility] Start: 03-04-2022 End: 03-04-2022 ambulatory [facility] Work Phone: Start: 03-04-2022 End: 03-04-2022 Patient encounter procedure [facility] Start: 01-15-2022 End: 01-15-2022 ambulatory [facility] Work Phone: Start: 01-15-2022 End: 01-15-2022 Patient encounter procedure [facility] Start: 01-03-2022 Office outpatient vi sit 15 minutes Roosevelt Carter Work Phone: [facility] Work Phone: Start: 01-03-2022 ambulatory ROOSEVELT CARTER Facil ity:[id number] Start: 12-31-2021 End: 12-31-2021 ambulatory [facility] Work Phone: Start: 12-31-2021 End: 12-31-2021 Patient encounter procedure [facility] Start: 12-05-2021 End: 12-05-2021 ambulatory [facility] Work Phone: Start: 12-05-2021 End: 12-05-2021 Patient encounter procedure [facility] Start: 10-21-2021 Chart Update Roosevelt larsen Work Phone: [facility] Work Phone: Start: 10-10-2021 AUDIT Roosevelt larsen Work Phone: [facility] Work Phone: Start: 10-03-2021 ambulatory Referral Self Facility: [id number] Start: 10-03-2021 Periodic preventive med est patient 40-64yrs Roosevelt Carter Work Phone: [facility] Work Phone: Start: 08-30-2021 End: 08-30-2021 Patient encounter procedure [facility] Start: 07-31-2021 End: 07-31-2021 Patient encounter procedure [facility] Start: 06-03-2021 End: 06-03-2021 Patient encounter procedure [facility] Start: 09-06-2020 Chart Update Roosevelt larsen Work Phone: [facility] Work Phone: Start: 08-31-2020 Periodic preventive med est patient 40-64yrs Roosevelt Carter Work Phone: [facility] Work Phone: Start: 06-13-2020 End: 06-13-2020 Orders Only Nora Elaine Burnham Work Phone: [facility] Start: 03-09-2020 End: 03-09-2020 Patient encounter procedure EVELYN KAY DANIELA [facility] Start: 03-09-2020 End: 03-09-2020 Postop follow up visit related to original px Evelyn Suarez Work Phone: [facility] Comment on above: S/P carpal tunnel re lease (Primary Dx) Start: 02-25-2020 End: 02-26-2020 Evaluation and management of inpatient ASHOK SOTOMAYOR [facility] Start: 02-25-2020 End: 02-26-2020 Evaluation and management of inpatient Quinton Jorge Work Phone: [facility] Start: 02-25-2020 End: 02-25-2020 Emergency department patient visit ROOSEVELTCESARIO CARTER [facility] Start: 2020 End: 2020 Patient encounter procedure EVELYN VILLANUEVA [facility] Start: 2020 End: 2020 Subsequent hospital visit by physician Evelyn Suarez Work Phone: [facility] Comment on above: Carpal tunnel syndro me of right wrist Start: 02-20-2020 End: 02-20-2020 Patient encounter procedure EVELYN SUAREZ [facility] Start: 02-10-2020 End: 02-10-2020 Patient encounter procedure EVELYN SUAREZ [facility] Start: 02-10-2020 End: 02-10-2020 Postop follow up visit related to original px Evelyn Suarez Work Phone: [facility] Comment on above: S/P carpal tunnel re lease (Primary Dx) Start: 01-27-2020 End: 01-27-2020 Patient encounter procedure EVELYN COLE [facility] Start: 01-23-2020 End: 01-23-2020 Patient encounter procedure ROOSEVELT CARTER [facility] Start: 12-29-2019 End: 12-29-2019 Patient encounter procedure DASHA CUMMINGS [facility] Start: 12-29-2019 End: 12-29-2019 Office outpatient visit 15 minutes Dasha Cummings Work Phone: [facility] Comment on above: Carpal tunnel syndro me of right wrist (Primary Dx) Start: 12-23-2019 End: 12-23-2019 Documentation procedure Devorah Lundberg [facility] Start: 12-19-2019 End: 12-19-2019 Documentation procedure Edilia Gómez [facility] Start: 12-08-2019 End: 12-08-2019 Patient encounter procedure DASHA CUMMINGS [facility] Start: 12-08-2019 End: 12-08-2019 Patient encounter procedure Danica Dominguez Work Phone: [facility] Comment on above: Ulnar neuropathy at elbow, left (Primary Dx); Bilateral carpal tunnel syndrome Start: 11-07-2019 End: 11-11-2019 Patient encounter procedure DASHA CUMMINGS [facility] Start: 11-07-2019 End: 11-07-2019 Office outpatient new 30 minutes Dasha Cummings Work Phone: [facility] Comment on above: Bilateral carpal murali madalyn syndrome (Primary Dx) Start: 08-02-2018 End: 08-03-2018 Patient encounter procedure Jayce Pepperd Facility:[facility] Start: 07-27-2018 End: 07-28-2018 Patient encounter procedure Jayce Pepperd Facility:[facility] Start: 12-04-2017 End: 12-05-2017 Patient encounter procedure Ruben Elizondo Facility:[facility] Procedures Date Procedure Procedure Detail Performing [...] Ceballos Work Phone: Start: 02-25-2020 Radiography of [id number] Jayce Ceballos Work Phone: Start: 02-25-2020 Calcium.ionized [...] Author Start: 09-27-2028 Lipid panel Lipid Panel [facility] Start: 11-12-2026 Diabetes mellitus screening Diabetes Screening [facility] Start: 09-27-2025 Yearly Adult Physical Yearly Adult P [facility] Start: 09-27-2025 End: 09-27-2025 Patient encounter procedure 09/27/2025 8:00 AM EDT Office Visit [address] [phone] Roosevelt Carter MD [address] [place] [address] [facility] Start: 12-05-2024 Influenza vaccination Influenz a Vaccine (Season Ended) [facility] Start: 10-14-2024 Screening for malign ant neoplasm of colon [facility] Start: 09-29-2024 Screening for malign ant neoplasm of breast Mammogram [facility] Start: 09-28-2024 Yearly Adult Physical Yearly Adult P [facility] Start: 09-26-2024 End: 09-26-2025 Basic metabolic 2000 panel - Serum or Plasma Basic Metabolic Panel Lab Routine Routine general medical examination at a health care facility Expected: 09/26/2024 (Approximate), Expires: 09/26/2025 [facility] Work Phone: Comment on above: Expected: 09/26/2024 (Approximate), Expires: 09/26/2025 Start: 09-26-2024 End: 09-26-2025 Cologuard colon cancer screening Cologuard colon cancer screening Lab Routine Encounter for screening for malignant neoplasm of colon Expected: 09/26/2024 (Approximate), Expires: 09/26/[address] [facility] Service Area Work Phone: Comment on above: Expected: 09/26/2024 (Approximate), Expires: 09/26/2025 Start: 09-26-2024 End: 09-26-2025 Hemoglobin A1c/Hemoglobin.total in Blood Hemoglobin A1C Lab Routine Routine general medical examination at a health care facility Expected: 09/26/2024 (Approximate), Expires: 09/26/2025 [facility] Work Phone: Comment on above: Expected: 09/26/2024 (Approximate), Expires: 09/26/2025 Start: 09-26-2024 End: 09-26-2025 Lipid 1996 panel - Serum or Plasma Lipid Panel Lab Routine Routine general medical examination at a health care facility Expected: 09/26/2024 (Approximate), Expires: 09/26/2025 [facility] Work Phone: Comment on above: Expected: 09/26/2024 (Approximate), Expires: 09/26/2025 Start: 12-06-2023 Influenza vaccination Influenz a Vaccine (Season Ended) [facility] Start: 11-05-2023 Yearly Adult Physical Yearly Adult P hysical [facility] Start: 09-30-2023 End: 09-30-2023 Patient encounter procedure 09/30/2023 3:15 PM EDT Appointment [facility] [address] [phone] [facility] Start: 09-28-2023 End: 09-27-2024 Cobalamin (Vitamin B12) [Mass/volume] in Serum or Plasma Vitamin B12 Lab Routine Routine general medical examination at a health care facility Expected: 09/28/2023 (Approximate), Expires: 09/27/2024 [facility] Work Phone: Comment on above: Expected: 09/28/2023 (Approximate), Expires: 09/27/2024 Start: 09-28-2023 End: 11-27-2024 DBT Breast - bilateral BI mammo bilateral screening tomosynthesis Imaging Routine Encounter for screening mammogram for breast cancer Expected: 09/28/2023, Expires: 11/27/[address] [facility] Service Area Work Phone: Comment on above: Expected: 09/28/2023 , Expires: 11/27/2024 Start: 09-28-2023 End: 09-27-2024 Lipid 1996 panel - Serum or Plasma Lipid Panel Lab Routine Routine general medical examination at a health care facility Expected: 09/28/2023 (Approximate), Expires: 09/27/2024 [facility] Work Phone: Comment on above: Expected: 09/28/2023 (Approximate), Expires: 09/27/2024 Start: 09-28-2023 End: 09-27-2024 Magnesium [Mass/volume] in Serum or Plasma Magnesium Lab Routine Routine general medical examination at a health care facility Expected: 09/28/2023 (Approximate), Expires: 09/27/2024 [facility] Work Phone: Comment on above: Expected: 09/28/2023 (Approximate), Expires: 09/27/2024 Start: 09-28-2023 End: 09-27-2024 Thyrotropin [Units/volume] in Serum or Plasma Thyroid Stimulating Hormone Lab Routine Routine general medical examination at a health care facility Expected: 09/28/2023 (Approximate), Expires: 09/27/2024 [facility] Work Phone: Comment on above: Expected: 09/28/2023 (Approximate), Expires: 09/27/2024 Start: 12-05-2022 Influenza vaccination U [facility] Start: 10-10-2022 Screening for malign ant neoplasm of breast Mammogram [facility] Start: 09-14-2020 NURSEVST, Provider: [facility] DEV[facility] RN 1,[id number], Status: Pen, Time: 11:00 AM NURSEVST, Provider: [facility] DEV[facility] RN 1,[id number], Status: Pen, Time: 11:00 AM [facility] Work Phone: Start: 03-09-2020 End: 03-09-2020 Follow-Up 03/09/2020 Follow-Up Sports Medicine Evelyn Suarez MD [address] [place] [address] [place] [address] [phone] [facility] Start: 2020 End: 2020 Hospital Encounter [facility] Comment on above: Carpal tunnel syndro me of right wrist RIGHT CARPAL TUNNEL RELEASE Start: 02-20-2020 End: 02-20-2020 Office Visit 02/20/2020 Office Visit Lab Evelyn Suarez MD [address] [place] [phone] [facility] Start: 01-27-2020 End: 01-27-2020 Hospital Encounter [facility] Comment on above: Carpal tunnel syndro me of left wrist LEFT CARPAL TUNNEL R ELEASE Start: 01-23-2020 End: 01-23-2020 Office Visit 01/23/2020 Office Visit Lab Evelyn Suarez MD [address] [place] [phone] [facility] Start: 12-06-2019 Influenza vaccinatio n given Sequential Influenza Vaccine (#1) [facility] Start: 2019 Administration of he rpes zoster vaccine Zoster Vaccines (1 of 2) [facility] Start: 2019 Screening for malign ant neoplasm of colon [facility] Start: 1991 DTaP/Tdap/Td Vaccine s (1 - Tdap) DTaP/Tdap/Td Vaccines (1 - Tdap) [facility] Start: 1990 Screening for malign ant neoplasm of cervix [facility] Start: 02-25-1988 Hepatitis B Vaccines (1 of 3 - 19+ 3-dose series) Hepatitis B Vaccines (1 of 3 - 19+ 3-dose series) [facility] Start: 02-25-1988 Pneumococcal vaccination Pneum ococcal Vaccine (1 of 2 - PCV) [facility] Start: 02-25-1988 Zoster Vaccines (1 of 2) Zoste r Vaccines (1 of 2) [facility] Start: 1987 Diabetes mellitus screening Diabetes Screening [facility] Start: 1987 Hepatitis C antibody , confirmatory test Hepatitis C Screening [facility] Start: 1987 Hepatitis C screening Hepatitis C Sc reening [facility] Start: 1985 COVID-19 Vaccine (1 of 2) COVI D-19 Vaccine (1 of 2) [facility] Start: 02-25-1984 HIV screening HIV Screening [facility] Start: 1981 Adolescent depressio n screening assessment Depression Screening (PHQ9) [facility] Start: 1975 Pneumococcal Vaccine : Pediatrics (0 to 5 Years) and At-Risk Patients (6 to 64 Years) (1 - PCV) Pneumococcal Vaccine: Pediatrics (0 to 5 Years) and At-Risk Patients (6 to 64 Years) (1 - PCV) [facility] Start: 1975 Pneumococcal Vaccine : Pediatrics (0 to 5 Years) and At-Risk Patients (6 to 64 Years) (1 of 2 - PCV) Pneumococcal Vaccine: Pediatrics (0 to 5 Years) and At-Risk Patients (6 to 64 Years) (1 of 2 - PCV) [facility] Start: 1974 COVID-19 Vaccine (#1) COVID-19 Vacci ne (#1) [facility] Start: 02-25-1972 History and physical examination, annual for health maintenance Wellness Visit [facility] Start: 1970 MMR Vaccines (1 of 1 - Standard series) MMR Vaccines (1 of 1 - Standard series) [facility] Start: 1969 COVID-19 Vaccine (#1) COVID-19 Vacci ne (#1) [facility] Start: 1969 Depression screening using PHQ-9 (Patient Health Questionnaire 9) score Depression Screening (PHQ9) [facility] Start: 1969 Hepatitis B Vaccines (1 of 3 - 3-dose series) Hepatitis B Vaccines (1 of 3 - 3-dose series) [facility] Start: 1969 HIV screening HIV Screening [facility] Start: 1969 Lipid panel Lipid Panel [facility] Start: 1969 Screening for malign ant neoplasm of cervix Pap Smear [facility] Start: 1969 Screening for malign ant neoplasm of colon [facility] Start: 1969 Screening mamm[facility] Start: 1969 Tetanus vaccination Tetanus: Every 1 0yrs [facility] Start: 1969 Yearly Adult Physical Yearly Adult P hysical [facility] End: 09-30-2023 DBT Breast - bilateral [facility] Service Area Work Phone: Comment on above: Once for 1 Occurrenc es starting 09/30/2023 until 09/30/2023 End: 11-06-2020 Electromyography EMG: Neurology Routine Bilateral carpal tunnel syndrome 1 Occurrences starting 11/07/2019 until 11/06/2020 [facility] Comment on above: 1 Occurrences starti ng 11/07/2019 until 11/06/2020 End: 11-06-2020 Nerve conduction test Nerve conduction test Neurology Routine Bilateral carpal tunnel syndrome 1 Occurrences starting 11/07/2019 until 11/06/2020 [facility] Comment on above: 1 Occurrences starti ng 11/07/2019 until 11/06/2020 Immunizations Immunization Date Immunization Notes Care Provider Jeet toledo 02-08-2014 influenza virus vaccine, whole virus Roosevelt Carter Work Phone: [facility] Work Phone: 02-08-2014 influenza virus vaccine, unspecified formulation Roosevelt Carter MD Work Phone: [facility] Work Phone: 01-31-2013 influenza virus vaccine, whole virus Roosevelt Carter Work Phone: -[facility] Work Phone: 01-17-2009 influenza virus vaccine, whole virus Roosevelt Carter Work Phone: [facility] Work Phone: 03-13-2008 influenza virus vaccine, whole virus Roosevelt Carter Work Phone: [facility] Work Phone: 02-05-2007 influenza virus vaccine, whole virus Roosevelt Carter Work Phone: [facility] Work Phone: Payers Date Payer Category Payer Self-pay [id number] 2021 [employer] [facility] [id number] 2017 Unknown 2011 Unknown BHARATHI NURFRANNY BRANDON/PREF/HMO/PPO xxxxxxxxxxxx 2011-Present [id number] 2011 Unknown BHARATHI BRANDON/PREF/HMO/PPO [id number] 2011-Present [id number]. [id number] 2011 Unknown [id number] 1969 Unknown [id number] 2.16.840.1.950201.3.579.2. 717 1969 Unknown [id number] 2.16.840.1.233380.3.579.2. 717 1969 Unknown [id number] 2.16.840.1.682403.3.579.2. 717 1969 Unknown [id number] 2.16.840.1.651135.3.579.2. 903 1969 Unknown [id number] 2.16.840.1.291407.3.579.2. 903 1969 Unknown [id number] 2.16.840.1.984396.3.579.2. 900 1969 Unknown [id number] 2.16.840.1.508604.3.579.2. 900 1969 Unknown [id number] 2.16.840.1.954512.3.579.2. 900 1969 Unknown [id number] 2.16.840.1.959547.3.579.2. 556 1969 Unknown [id number] 2.16.840.1.676216.3.579.2. 903 1969 Unknown [id number] 2.16.840.1.909003.3.579.2. 903 1969 Unknown [id number] 2.16.840.1.869467.3.579.2 90 1969 Unknown [id number] 2.16.840.1.557241.3.579.2. 903 1969 Unknown [id number] 2.16.840.1.935975.3.579.2. 90 1969 Unknown [id number] 2.16.840.1.320161.3.579.2. 903 1969 Unknown [id number] 2.16.840.1.426232.3.579.2 903 1969 Unknown [id number] 2.16.840.1.810611.3.579.2. 356 1969 Unknown [id number] 2.16.840.1.410120.3.579.2. 356 1969 Unknown [id number] 2.16.840.1.843339.3.579.2. 1243 1969 Unknown [id number] 2.16840.1.721691.3.579.2. 1245 1969 Unknown [id number] 2.16.840.1.662683.3.579.2. 1245 1969 Unknown [id number] 2.16840.1.999023.3.579.2. 1245 1969 Unknown [id number] 2.16840.1.850441.3.579.2. 1244 Unknown [id number] 2.16840.1.127023.3.579.2. 462 Unknown [id number] 2.16.840.1.043945.3.579.2. 462 Unknown [id number] 2.16.840.1.094412.3.579.2. 462 Unknown [id number] 2.16840.1.401970.3.579.2. 462 Unknown [id number] 2.16840.1.241923.3.579.2. 462 Unknown [id number] 2.16840.1.043764.3.579.2. 462 Unknown [id number] 2.16840.1.799200.3.579.2. 462 Unknown [id number] 2.16840.1.780635.3.579.2. 462 Social History Date Type Detail Facility Start: 11-07-2019 End: 10-02-2022 Tobacco smoking status SCIS Never smoker [facility] Start: 11-07-2019 End: 09-26-2024 Alcohol intake Current drinker of alcohol (finding) [facility] Start: 1970 Sex Assigned At Not on file [facility] Start: 09-22-2022 End: 09-30-2023 Exposure to SARS-CoV-2 (event) Not sure [facility] Start: 12-08-2019 End: 10-02-2022 Tobacco use and exposure Never used [facility] Start: 10-02-2022 End: 09-26-2024 Non-smoker Non-smoker [employer] [facility] Work Phone: Start: 05-11-2020 End: 05-11-2020 Tobacco smoking status NHIS Unknown if ever smoked [facility] Start: 1970 Sex Assigned At Female [facility] Start: 10-02-2022 Alcohol intake Lifetime non-d judith (finding) [facility] Work Phone: Start: 10-02-2022 End: 09-26-2024 Tobacco use panel [facility] Work Phone: Start: 11-03-2022 Alcohol Comment 2 x per month [facility] Work Phone: Functional Status Date Assessment Result Facility 09-26-2024 Patient Health [facility] ionnaire 2 item (PHQ-2) [Reported] [facility] 11-13-2023 Lipoprotein insulin resistance score <25 [facility] Comment on above: Order Comment: TSH t esting is performed using different testing methodology at [facility] than at other [facility]. 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 Mammogram okay 2021, every other year. [...] 10 mg tablet documented in this encounter [facility] Work Phone: 10-02-2022 History of Present illness Narrative Subjective Patient ID: Ana Huerta is a 52 y.o. female who presents for Blepharitis (LT x5days). HPI Significantly irritated stye left upper eyelid. Doxycycline for 1 week Prednisone to help as a taper for her lupus rash on her face. 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 She will call if she needs [...] 5 mg tablet documented in this encounter [facility] Work Phone: 01-03-2022 History of Present illness [...] any better next 2 to 3 days [facility] Work Phone: 05-07-2019 History of Present illness Narrative wellnessRenal, RHeum are following her. starting new biologic for SLE/RA.FOBT given todayMMG ok 05/2019. MMg order done today [facility] Work Phone: Evaluation note No assessment inform ation available [facility] Work Phone: Evaluation note Diagnosis Hordeolum externum of left upper eyelid- Primary documented in this encounter [facility] Work Phone: Evaluation note* Diagnosis Routine general medical examination at a health care facility- Primary documented in this encounter [facility] Work Phone: Evaluation note* Diagnosis Routine general medical examination at a health care facility- Primary Encounter for screening mammogram for breast cancer documented in this encounter [facility] Work Phone: Evaluation note* Diagnosis Encounter for screening mammogram for breast cancer documented in this encounter [facility] Work Phone: Evaluation note* Diagnosis Routine general medical examination at a health care facility- Primary Systemic lupus erythematosus, unspecified SLE type, unspecified organ involvement status (Multi) Rheumatoid arthritis, involving unspecified site, unspecified whether rheumatoid factor present (Multi) Encounter for screening for malignant neoplasm of colon Motion sickness, initial encounter documented in this encounter [facility] Work Phone: History of Present illness Narrative* wellness * MMG * cologuard * Recommend flu shot and COVID booster in the fall. But she would want to confirm that with rheumatology is ok. 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 Advance Directives and Livin g Will 2020 9:11 AM Latest Code Status on File Code Status Date Activated Date Inactivated Comments Full Code 02/25/2020 9:27 AM 02/26/2020 4:33 PM Documents on File Type Date Recorded 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 Advance Directives and Livin g Will 2020 9:11 AM Latest Code Status on File Code Status Date Activated Date Inactivated Comments Full Code 02/25/2020 9:27 AM 02/26/2020 4:33 PM Reason for Referral Status Reason Specialty Diagnoses / Procedures Referred By Contact Referred To Contact Authorized Neurology Diagnoses Bilateral carpal tunnel syndrome Procedures Nerve conduction test Dasha Cummings CNP [address] [place] [address] Danica Dominguez MD [address] [place] [address] Status Reason Specialty Diagnoses / Procedures Referred By Contact Referred To Contact Authorized Neurology Diagnoses Bilateral carpal tunnel syndrome Procedures EMG: Dasha Cummings CNP [address] [place] [address] Danica Dominguez MD [address] [place] [address] Specialty Diagnoses / Procedures Referred By Shannon watt Referred To Contact Radiology Diagnoses Encounter for screening mammogram for breast cancer Procedures BI mammo bilateral screening tomosynthesis Roosevelt Carter MD [address] [place] [address] Referral ID Status Reason Start Date Expiration Date Visits Requested Visits Authorized [id number] Authorized Perform Procedure 09/28/2023 09/27/2024 1 1 History of Present Illness * Dasha Cummings, TABLE FILLER - 11/07/2019 9:44 PM EDT [facility] [address] [facility] [address] [facility] [phone] No chief complaint on file. Ana Huerta 49 year old female presents to the office for bilateral hand and finger numbness and tingling. She has had this for the past couple of months and its not getting any better. 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 She is always [...] file Gets together: Not on file Attends buddhism service: Not on file Active member of [...] - 12/29/2019 1:13 PM EDT [facility] [address] [facility] [address] [facility] [phone] Chief Complaint Patient presents with Right Wrist [...] file Gets together: Not on file Attends buddhism service: Not on file Active member of [...] on: 02/10/2020 6:27 PM by: EVELYN SUAREZ [[id number]] documented in this encounter* Gil Carter Jr., [...] status: Goals of care reviewed. Jones Carter [phone] Reason for visit/Chief complaint: Acute respiratory failure [...] GLUCOSE 160 (H) 02/26/2020 * Elaine Anderson, TABLE FILLER - 02/26/2020 8:07 AM EST Progress Note Patient Name:Ana Huerta :1970 Admit Date: 720245 Perpetual Assessment: Ana Huerta is a 50 y.o. female with a past medical history of rheumatoidarthritis and Lupus who presented from [facility] on 02/25/2020 with tongue swelling. Pt had right carpal tunnel release surgery on 02/23 under local (lidocaine) anesthesia. Post op had complaints of tongue swelling, pain, and burning with difficulty handling secretions. Pt was intubated for airway protection 02/25/20. After receiving steroids, epi, benadryl and pepcid, she was transferred to [facility] for ongoing management of angioedema Assessment and Plan: Angioedema - Unclear etiology- lidocaine, meloxicam - Pt with tongue pain, swelling, and difficulty with secretions - received epi, pepcid, methylprednisone, and benadryl at [facility] - stop decadron and change back to home prednisone. Change benadryl to prn - discharge home later this afternoon if remains asymptomatic Acute Respiratory Failure - secondary to angioedema. Intubated for airway protection - Intubated 02/24. Vent day #2 - off sedation - passed SBT. Extubate today Carpel Tunnel - s/p Right Carpel Tunnel release surgery 02/[address] Suarez at [place] under local anesthesia - was prescribed cipro post op but never took a dose - keep right wrist dressing intact - pain control with tylenol Rheumatoid Arthritis - Follows with a physician in [place] (family does not recall name) - on [...] data reviewed No results for input(s): PHART, JCK5RAT, PO2ART, K1HEODCM, RESPRATE, TIDALVOL, PEEP, J3HEPYAN in the last 72 hours. Recent Labs [...] on: 03/10/2020 4:54 PM by: EVELYN SUAREZ [[id number]] documented in this encounter* Danica Dominguez MD - 12/08/2019 9:52 AM EDT [facility] - Neurology [address] [place], [place] [id number] Nerve Conduction & EMG Report Patient: Ana [...] Neurophysiology, Neurology, Vascular Neurology and Sleep Medicine [facility] [place] [phone] Nota bene: Portions of this chart was created using [employer] voice recognition software. Occasional wrong-word or sound-like [...] taking a prescription pain medicine, take an eypw-tsc-txgzmhm medicine such as acetaminophen (Tylenol), ibuprofen (Advil, [...] and hand's range of motion, strength, and diathermy equipment repairer. You will workwith your doctor and physical [...] Log into your personal health record on [email or web address] and enter N388 in the Education box to learn more about Carpal Tunnel Release: What to Expect at Home. Current as of: June 06, 2019 Content Version: 12.6 [employer]. Care instructions adapted under license by your healthcare professional. If you have questions about a medical condition or this instruction, always ask your healthcare professional. [employer] disclaims any warranty or liability for your use of this information. GENERAL POST-OPERATIVE PATIENT INSTRUCTIONS ANESTHESIA PRECAUTIONS: A responsible adult must stay with you for at least 24 hours after surgery. You may feel light headed,, dizzy, or nauseated during this time. Do not operate a vehicle (car, bike, motorcycle, home health scheduler) machinery or power tools. Do not make [...] to call your physician or the hospital motorcoach operator if you have any questions, and they will be glad to assist you. documented in this encounter* Discharge Instr - AVS First Page* Elaine Anderson, TABLE FILLER - 02/26/2020 12:32 PM EST CHIEF COMPLAINT: [...] obtaining a primary care physician please call: [phone] Pain is [...] taking a prescription pain medicine, take an tiwq-zvx-xqemxik medicine as directed such as Tylenol (Acetaminophen) [...] be sent through Care Everywhere. * Angioedema ([place] Island[place]) documented in this encounter Hospital Course * Elaine Anderson CNP - 02/26/2020 12:36 PM EST DISCHARGE SUMMARY Patient: Ana Huerta Date of : 1970 Site: [facility] Family Provider: Roosevelt Carter MD Admit Date: 02/25/2020 Discharge Date/Time: 02/26/20 Afternoon Disposition: Home Clinical Summary Hospital Course: Ana Huerta is a 50 y.o. female with a past medical history of rheumatoid arthritis and Lupus who presented from [facility] on 02/25/2020 with tongue swelling. Pt had right carpal tunnel release surgery on 02/23 under local (lidocaine) anesthesia. Post op had complaints of tongue swelling, pain, and burning with difficulty handling secretions. Pt was intubated for airway protection 02/25/20. After receiving steroids, epi, benadryl and pepcid symptoms improved. She was eljzegpkq84/22/20. She remained asymptomatic and will be discharged home in good condition with plans for outpt follow up with her PCP and her orthopedic surgeon. Discharge Diagnoses: Angioedema - Unclear etiology- lidocaine, meloxicam - Pt with tongue pain, swelling, and difficulty with secretions - received epi, pepcid, methylprednisone, and benadryl at [facility] - stop decadron and change back to [...] release surgery 02/[address] Suarez at [place] under local anesthesia - was prescribed cipro post op but never took a dose - keep right wrist dressing intact - pain control with tylenol Rheumatoid Arthritis - Follows with a physician in [place] (family does not recall name) - on [...] mouth daily . Physician(s) Family Provider: Roosevelt Carter MD, Address: [address] [place] [address] Follow Up: Roosevelt Carter MD [address] [place] [address] Follow up in 1 week(s) Additional Information: [...] section and content) DATE CREATED AUTHOR 08/07/2018 [facility] DATE CREATED AUTHOR AUTHOR'S ORGANIZ ATION 02/27/2020 [facility] DATE CREATED AUTHOR AUTHOR'S ORGANIZ ATION 02/27/2020 [facility] DATE CREATED AUTHOR AUTHOR'S ORGANIZ ATION 03/09/2020 [facility] DATE CREATED AUTHOR AUTHOR'S ORGANIZ ATION 03/09/2020 [facility] DATE CREATED AUTHOR AUTHOR'S ORGANIZ ATION 09/09/2020 [facility] DATE CREATED AUTHOR AUTHOR'S ORGANIZ ATION 01/07/2022 [facility] DATE CREATED AUTHOR AUTHOR'S ORGANIZ ATION 01/07/2022 [facility] DATE CREATED AUTHOR AUTHOR'S ORGANIZ ATION 10/27/2023 [facility] DATE CREATED AUTHOR AUTHOR'S ORGANIZ ATION 02/07/2024 [facility] DATE CREATED AUTHOR AUTHOR'S ORGANIZ ATION 08/11/[address] [facility] DATE CREATED AUTHOR AUTHOR'S ORGANIZ ATION 09/27/2024 [facility] DATE CREATED AUTHOR AUTHOR'S ORGANIZ ATION 09/28/2024 [facility] Reason for Visit (unrecogniz ed section and content) Reason Comments Pain Follow-up Reason Comments Follow-up Suture / Staple Removal Status Reason Specialty Diagnoses / Procedures Referre d By Contact Referred To Contact Diagnoses Carpal tunnel syndrome of right wrist Carpal tunnel syndrome of right wrist [G56.01] Procedures [place] [facility] N/CARPAL TUNNEL SURG Evelyn Suarez MD [address] [place] [address] Status Reason Specialty Diagnoses / Procedures Referre d By Contact Referred To Contact Diagnoses Respiratory failure (HCC) angioedema Reason Comments Post-op Follow-up Status Reason Specialty Diagnoses / Procedures Referre d By Contact Referred To Contact Closed Neurology Diagnoses Bilateral carpal tunnel syndrome Procedures Nerve conduction test Dasha Cummings, GEORGE [address] [place] [address] Danica Dominguez MD [address] [place] [address] Reason Comments Blepharitis LT x5days Reason Comments Wellness Reason Comments Annual Exam C/o L thumb pain x 3 months Specialty Diagnoses / Procedures Referred By Shannon watt Referred To Contact Radiology Diagnoses Encounter for screening mammogram for breast cancer Procedures BI mammo bilateral [place] [address] [place] [id number] Referral ID Status Reason Start Date Expiration Date Visits Requested Visits Authorized [id number] Authorized Perform Procedure 09/28/2023 09/27/2024 1 1 Reason Comments Annual Exam Yearly Op Note - Evelyn Suarez MD - 2020 9:26 AM ESTBrief Op Note - Evelyn Suarez MD - 2020 9:26 AM ESTQuick Note - Clemencia Crawford RN - 02/26/2020 2:27 PM EST Miscellaneous Notes (unrecog nized section and content) Dictation on: 2020 9:29 AM by: EVELYN SUAREZ [[id number]] Brief Post Operative Note Patient Name: Ana Huerta : 1970 (49 y.o.) Date of Service: 2020 CSN: [id number] Procedure(s): RIGHT CARPAL TUNNEL RELEASE Pre-Operative Diagnoses: * Carpal tunnel syndrome of right wrist [G56.01] Post-Operative Diagnoses: * Same as Pre-Op Diagnosis * Carpal tunnel syndrome of right wrist [G56.01] Surgeon(s) and Role: * Evelyn Suarez MD - Primary Anesthesiologist: Greg Suarez MD V GROOVE CUTTER: Sushila Parada CRNA Chemical Weigher: Karen Gonsalez RN Scrub Person: ST Adonis [...] rheumatoid arthritis and Lupus who presented from [facility] on 02/25/2020 with tongue swelling. Pt had [...] her surgery in January. She presented to [facility] around midnight on 02/23-02/24. Pt was intubated at [facility] over concerns for airway protection. She received epi, benadryl, pepcid and steroids. She was transferred to [facility] for further management. VITAL SIGNS: On Vent: [...] received epi, pepcid, methylprednisone, and benadryl at [facility] - continue steroids, pepcid, and benadryl Acute Respiratory Failure - secondary to angioedema. Intubated for airway protection - Intubated 02/24. Vent day #1 - TV 6ml/kg, Propofol for sedation - No plans for SAT/SBT today Carpel Tunnel - s/p Right Carpel Tunnel release surgery 02/[address] Suarez at [place] under local anesthesia - was prescribed cipro post op but never took a dose - keep right wrist dressing intact - pain control with tylenol - Dr. Suarez notified of pt admission Rheumatoid Arthritis - Follows with a physician in [place] (family does not recall name) - on [...] Mcgee, OG Mcgee Indication: N/A placed at [facility] 02/24 Endo: Glucose controlled, <180 Diet: NPO [...] DO - 02/25/2020 1:24 PM Elaine Bah, TABLE FILLER - 02/25/2020 9:36 AM EST H&P Notes [...] status: Goals of care reviewed. E Raul [phone] Reason for Admission/Chief Complaint: As above History [...] for airway control. She subsequently transferred to [facility]. Review of Systems: [] All other systems [...] TUNNEL RELEASE; Surgeon: Evelyn Suarez MD; Location: [facility]; Service: Orthopedic HAND SURGERY Right Family History [...] file Gets together: Not on file Attends buddhism service: Not on file Active member of [...] data reviewed No results for input(s): PHART, BVS1ZYG, PO2ART, O2ZYBXYV, RESPRATE, TIDALVOL, PEEP, T3SXVOGL in the last 72 hours. Recent Labs [...] Physical Patient Name:Ana Huerta :1970 Admit Date: 436574 [facility] to take over care when transferred out of the ICU Perpetual Assessment: Ana Huerta is a 50 y.o. female with a past medical history of rheumatoid arthritis and Lupus who presented from [facility] on 02/25/2020 with tongue swelling. Pt had right carpal tunnel release surgery on 02/23 under local (lidocaine) anesthesia. Post op had complaints of tongue swelling, pain, and burning with difficulty handling secretions. Pt was intubated for airway protection 02/25/20. After receiving steroids, epi, benadryl and pepcid, she was transferred to [facility] for ongoing management of angioedema. Assessment and Plan: Angioedema - Unclear etiology- lidocaine, meloxicam - Pt with tongue pain, swelling, and difficulty with secretions - received epi, pepcid, methylprednisone, and benadryl at [facility] - continue steroids, pepcid, and benadryl Acute Respiratory Failure - secondary to angioedema. Intubated for airway protection - Intubated 02/24. Vent day #1 - TV 6ml/kg, Propofol for sedation - No plans for SAT/SBT today Carpel Tunnel - s/p Right Carpel Tunnel release surgery 02/[address] Suarez at [place] under local anesthesia - was prescribed cipro post op but never took a dose - keep right wrist dressing intact - pain control with tylenol - Dr. Suarez notified of pt admission Rheumatoid Arthritis - Follows with a physician in [place] (family does not recall name) - on [...] Mcgee, OG Mcgee Indication: N/A placed at [facility] 02/24 Endo: Glucose controlled, <180 Diet: NPO [...] rheumatoid arthritis and Lupus who presented from [facility] on 02/25/2020 with tongue swelling. Pt had [...] her surgery in January. She presented to [facility] around midnight on 02/23- 02/24. Pt was intubated at [facility] over concerns for airway protection. She received epi, benadryl, pepcid and steroids. She was transferred to [facility] for further management. Review of Systems: [x] [...] file Gets together: Not on file Attends buddhism service: Not on file Active member of [...] data reviewed No results for input(s): PHART, OSM8AMB, PO2ART, J7ULXXPE, RESPRATE, TIDALVOL, PEEP, O8BIMNJA in the last 72 hours. No results [...] UPON TRANSFER FROM UNIT Patient transported to [place] by [facility]. Receiving unit notified of patient's ETA. Vital signs: BP 130/79, HR 91, RR 10, Pulse Ox 100% on VENT: FIO2 41%; A/C 10; Vt 400; PEEP 5. Chief complaint of Angioedema. Patient does have patent IV access. Propofol and NS IV gtts infusing. Patient was on manager cardiac showing NSR during transport. Patient will be transported to room [facility] on arrival. documented in this encounter [...] Dr. Ramon Dumont MD Other Provider Active Pancake Professional Relationship Specialty Start Date End Date Roosevelt Carter MD [address] [place] [address] PCP - General 05/10/19 Roosevelt Carter MD [address] [facility] [place] [address] PCP - Lynn ACO PCP 04/06/21 Pancake Professional Relationship Specialty Start Date End Date Roosevelt Carter MD [address] [facility] [place] [address] PCP - General 05/10/19 Roosevelt Carter MD [address] [place] [address] PCP - Bharathi ACO PCP 04/06/21 Team Status: Inactive Member Role Status Dates Dr. Roosevelt Carter MD Primary Care Provider Active Dr. Ramon Dumont MD Attending Provider, [facility] Provider Active Pancake Professional Relationship Specialty Start Date End Date Roosevelt Carter MD [address] [place] [id number] PCP - General 05/10/19 Roosevelt Carter MD [address] [place] [id number] PCP - Bharathi HUO PCP 04/06/21 Pancake Professional Relationship Specialty Start Date End Date Roosevelt Carter MD [address] [place] [address] PCP - General 05/10/19 Roosevelt Carter MD [address] [place] [phone] PCP - Bharathi HUO PCP 04/06/21 Pancake Professional Relationship Specialty Start Date End Date Roosevelt Carter MD [address] [address] PCP - General 05/10/19 Roosevelt Carter MD [address] [address] PCP - Bharathi ACO PCP 04/06/21 FOR [...] BE BASED ON THE PRIMARY CLINICAL RECORDS. [facility]. provides no warranty or guarantee of the accuracy or completeness of information in this document.
[2024-10-05 11:21] LABS: Creatinine, Urine (random) 68.80 mg/dL (28.00-217.00); Microalbumin,Random Urine < 12.0 mg/L (NO RANGE EST.)
[2024-10-05 12:22] LABS: Anion Gap 9 (5-15); BUN 11 mg/dL (4-19); BUN/Creat Ratio 16.3 RATIO (10-20); Calcium,Total 9.2 mg/dL (7.6-11.0); Carbon Dioxide 25.0 mmol/L (21.0-32.0); Chloride 103 mmol/L (98-108); Glucose 78 mg/dL (70-99); Potassium 4.8 mmol/L (3.3-5.1)
== END | disposition home or self-care (01) ==
LOC: MTLAB 07:03
PROVIDERS: PCP Family Medicine; Referring Provider Internal Medicine Nephrology; Visit Provider Internal Medicine Nephrology
DX: M32.14 Glomerular disease in systemic lupus erythematosus (principal)
CPT/HCPCS: 36415; 80048; 82043; 82570

== ENCOUNTER → 2024-11-02 | Outpatient (CLI) | payer BC, SELFPAY ==
[2024-11-02 10:39] LABS: Hematocrit 38.2 % (37-47); Hemoglobin 12.9 g/dL (12.0-15.0); Immature Granulocytes Count 0.010 X10^3/uL (0.0-0.0); Mean Corp Hgb Conc 33.8 g/dL (32-36); Mean Corpuscular Volume 97.7 fL (81-99); Mean Platelet Vol. 11.3 fl (6.2-12.0); NRBC Flagged by Analyzer 0 % (0-5); Platelet Count 171 K/mm3 (150-450); RBC Distribution Width CV 12.5 % (11.6-14.6); RBC Distribution Width SD 45.0 fl (35.1-43.9); Red Blood Count 3.91 M/mm3 (4.2-5.4); White Blood Count 2.8 K/mm3 (4.4-11.0)
[2024-11-02 11:07] LABS: Color, Urine Yellow (Yellow); Glucose, Dipstick Normal (Normal); Ketone-Dipstick Negative (Negative); Leukocyte Esterase-Dipstick Negative /ul (Negative); Nitrite-Dipstick Negative (Negative); Occult Blood-Urine Negative /ul (Negative); Protein-Dipstick 15 mg/dl (Negative); Specific Gravity, Urine 1.010 (1.002-1.030); Urine Bilirubin Dipstick Negative (Negative)
[2024-11-02 11:34] LABS: AST(SGOT) 34 U/L (<=31); Alanine Aminotransfer ALT/SGPT 28 U/L (<=34); Albumin, Serum 4.0 g/dL (3.5-5.0); Alkaline Phosphatase 63 U/L (35-104); Anion Gap 9 (5-15); BUN 10 mg/dL (4-19); BUN/Creat Ratio 14.4 RATIO (10-20); Calcium,Total 9.3 mg/dL (7.6-11.0); Carbon Dioxide 24.2 mmol/L (21.0-32.0); Chloride 105 mmol/L (98-108); Globulin 3.0 g/dL (2.2-4.2); Glucose 85 mg/dL (70-99); Potassium 4.6 mmol/L (3.3-5.1)
[2024-11-02 20:06] LABS: Creatinine, Urine (random) 137.00 mg/dL (28.00-217.00); Protein, Urine (Random) 10.5 mg/dL (0.0-12.0); Protein:Creat Ratio 77 mg/g CRE (0-200)
[2024-11-03 15:08] LABS: Anti-dsDNA Ab 24 IU/mL (0-9)
== END | disposition home or self-care (01) ==
LOC: MTLAB 07:30
PROVIDERS: PCP Family Medicine; Referring Provider Internal Medicine Rheumatology; Visit Provider Internal Medicine Rheumatology
DX: M32.9 Systemic lupus erythematosus, unspecified (principal); M06.4 Inflammatory polyarthropathy; Z79.899 Other long term (current) drug therapy; R76.8 Other specified abnormal immunological findings in serum
CPT/HCPCS: 36415; 80053; 81002; 82570; 84156; 85025; 86160; 86225